=== PATIENT | female | born 1965 | race Caucasian/White ===

== ENCOUNTER 2021-03-02 10:37 | Inpatient (IN) | payer OTHER, SELFPAY ==
[2021-03-02] VITALS (8 sets, daily range): BP systolic 117–138; BP diastolic 46–82; PULSE 73–94; RESP 13–20; TEMP 36.7–36.9; O2SAT 95–99; BMI 32.3
--- NOTE | ~2021-03-02 | XR_ITS ---
EXAMINATION: XR CHEST CLINICAL INFORMATION: Generalized weakness. COMPARISON: None TECHNIQUE: Frontal view of the chest was obtained. FINDINGS: Normal appearance of the cardiomediastinal structures. No effusions or pneumothoraces. Normal pattern of pulmonary vasculature. No focal pulmonary consolidation. XR/XR chest 1V IMPRESSION: *No acute cardiopulmonary abnormalities.
--- NOTE | ~2021-03-02 | CT_ITS ---
EXAMINATION: CT ABDOMEN AND PELVIS WITH CONTRAST CLINICAL INFORMATION: Right upper quadrant and right lower quadrant pain with nausea and diarrhea. COMPARISON: None TECHNIQUE: Multidetector volumetric images were obtained from the superior aspect of the liver through the pubic symphysis following administration 85 mL of Omnipaque 350 intravenous contrast. Sagittal and coronal reformatted images were obtained on the technologist's workstation. Oral contrast: No This CT examination was performed using dose optimization techniques as appropriate, variously including the following: *Automated exposure control *Adjustment of mA and/or kV according to patient size (this includes techniques or standardized protocols for targeted exams where dose is matched to indication/reason for exam; i.e. extremities or head) *Use of iterative reconstruction technique DLP: 722 mGy-cm FINDINGS: LUNG BASES: The visualized lung bases are unremarkable. No pleural or pericardial effusion. Heart normal size. There are mitral annular and aortic valve calcifications seen. There are also noted to be esophageal varices present. LIVER, GALLBLADDER, AND BILIARY TREE: The liver has a somewhat nodular peripheral margin with a small amount of perihepatic fluid without subcapsular fluid. The appearance is consistent with some degree of cirrhosis. The umbilical vein does not appear to be recannulated. No focal mass or intrahepatic bile duct dilatation is seen. The gallbladder is distended. There is cholelithiasis present. The gallbladder wall may be thickened and I cannot tell if there may be some fluid within the wall however no significant pericholecystic fluid or inflammatory changes appreciated on this study. Ultrasound be of help in further evaluation for possible acute cholecystitis. PANCREAS: Unremarkable. SPLEEN: Unremarkable. ADRENAL GLANDS: Unremarkable. KIDNEYS AND URETERS: The kidneys are normal in size, shape, and attenuation. No hydronephrosis, hydroureter, or calculi seen. No perinephric stranding. Of the right side of the pelvis some calculi are present directly adjacent to the distal right ureter however no proximal dilatation is present and these most likely represent vascular calcifications. BLADDER: Unremarkable. GASTROINTESTINAL TRACT: No dilated loops of large or small bowel are evident. No free air or significant free fluid is seen. There are some prominent loops of fluid-filled small bowel to the level of the ileocecal valve. I do not definitely see evidence of an intussusception. The appendix seems to wrap around bowel with calcification near its base likely represent appendicolith however the appendix is not enlarged and there is no periappendiceal inflammatory change. There is some mild sigmoid diverticulosis present without definite evidence of acute diverticulitis. No pericolonic inflammatory changes appreciated. ABDOMINAL WALL: No significant hernia is appreciated. LYMPH NODES: No lymphadenopathy appreciated. VASCULAR: There are prominent portal venous system varices present including esophageal varices and development of a spontaneous left splenorenal shunt. The portal vein is patent. The splenic vein is patent. No abdominal aortic aneurysm. PELVIC VISCERA: Unremarkable. OSSEOUS STRUCTURES: There is superior endplate compression fractures seen involving L1 and L3 with the L1 fracture having approximately 50% loss of height. There is severe narrowing of the L5-S1 disc space. There are some old healed left rib fractures present. There is some dystrophic bone seen dorsal to the left iliac bone and sacrum. CT/CT abdomen pelvis w con IMPRESSION: Nodular appearance to the liver with prominent portal venous system varices including esophageal varices and a spontaneous left splenorenal shunt. Small amount of free fluid around the liver. Distended gallbladder containing calculi but without definite evidence of acute cholecystitis. If there are symptoms of acute cholecystitis then ultrasound would be of help in better evaluation. No evidence of obstructive uropathy. Question appendicolith but without definite evidence of acute appendicitis. Some fluid-filled distended loops of small bowel to the level of the ileocecal valve which may be related to small bowel ileus without significant dilatation of bowel. Fleischner guidelines were followed.
--- NOTE | 2021-03-02 11:10 | ECG_ITS ---
Test Reason : WEAKNESS Blood Pressure : / mmHG Vent. Rate : 085 BPM Atrial Rate : 085 BPM P-R Int : 140 ms QRS Dur : 080 ms QT Int : 420 ms P-R-T Axes : 030 010 024 degrees QTc Int : 499 ms Normal sinus rhythm Cannot rule out Anterior infarct , age undetermined - could be related to body habitus and lead placement Abnormal ECG No previous ECGs available Referred By: Karen Elliott Electronically Signed By:KIRILL PUTNAM
--- NOTE | 2021-03-02 11:23 | ED.WEAKNESS ---
HPI - Weakness General Chief complaint: Weakness Stated complaint: nausea/diarrhea Time Seen by Provider: 03/02/21 10:49 Source: patient Mode of arrival: EMS History of Present Illness HPI Narrative: 56-year-old female with past medical history ETOH abuse presenting to the ED reporting she recently went on ETOH dhillon drinking about a pint of hard liquor daily, last drink last night, reported generalized fatigue/weakness with difficulty ambulating, RUQ abdominal pain, nausea, and diarrhea. Denies illicit drug use, vomiting, fever, chills, CP/SOB, dysuria. Also reports pruritic rash/scab to hand. Patient reports [facility] MD Complaint: generalized weakness Related Data Home Medications Medication Instructions Recorded Confirmed acetaminophen 325 mg tablet 325 mg PO BID PRN 03/02/21 03/02/21 escitalopram oxalate 10 mg tablet 1 tab PO DAILY 03/02/21 03/02/21 ferrous gluconate 324 mg (38 mg 324 mg PO BEDTIME 03/02/21 03/02/21 iron) tablet folic acid 1 mg tablet 1 tab PO DAILY 03/02/21 03/02/21 furosemide 20 mg tablet 1 tab PO DAILY 03/02/21 03/02/21 gabapentin 100 mg capsule 200 mg PO BID 03/02/21 03/02/21 hydroxyzine HCl 25 mg tablet 1 tab PO QID PRN 03/02/21 03/02/21 nadolol 20 mg tablet 1 tab PO DAILY 03/02/21 03/02/21 naltrexone 50 mg tablet 1 tab PO DAILY 03/02/21 03/02/21 pantoprazole 40 mg tablet,delayed 1 tab PO BID 03/02/21 03/02/21 release spironolactone 100 mg tablet 1 tab PO DAILY 03/02/21 03/02/21 Allergies Allergy/AdvReac Type Severity Reaction Status Date / Time levofloxacin [From Levaquin] Allergy Anaphylaxis Verified 03/02/21 10:48 Penicillins Allergy Anaphylaxis Verified 03/02/21 10:48 Sulfa (Sulfonamide Allergy Anaphylaxis Verified 03/02/21 10:48 Antibiotics) Review of Systems Review of Systems: Constitutional:No Fever, No Chills, + Fatigue, No Malaise ENT/Mouth: No Ear Pain, No Nasal Congestion,No sore throat, No Rhinorrhea, No Swallowing Difficulty Eyes: No Eye Pain, No Swelling, No Redness Cardiovascular: No Chest Pain, No SOB, No Edema, No Palpitations Respiratory: No Cough, No Dyspnea Gastrointestinal: + Nausea, No Vomiting, + Diarrhea, No Constipation, + Abdominal pain Genitourinary: No Dysuria, No Urinary Frequency, No Hematuria, No Flank Pain, No Urinary Flow Changes, No Hesitancy Musculoskeletal: No joint pain, No Myalgias, No Joint Swelling Skin: No Skin Lesions, +rash Neuro: + Weakness, No Dizziness, No Headache Psych: + Anxiety/Panic, + Social Issues Yes all other systems are reviewed and are negative [facility] Past Medical History Attestation statement: The following information was validated with the patient. Medical History Alcoholic cirrhosis of liver Family History Family History Mother Pancreatic cancer Social History Social History Alcohol intake: current Patient Tobacco Use Status: Former Tobacco user Substance Use Type: Marijuana Advance Directives: No Advance Directives Information Provided: No Patient : No Physical Exam Vital Signs: Vital Signs: Last Vital Signs Temp 98.5 F 03/02/21 10:50 Pulse 79 03/02/21 15:52 Resp 17 03/02/21 15:52 BP 131/67 03/02/21 15:52 Pulse Ox 95 03/02/21 15:52 BMI result Body Mass Index 32.3 Const: General: cooperative and no acute distress Orientation/consciousness: patient oriented x3 Limitations: no limitations HENMT: Other: Healing scabs noted to face Head: Yes normal to inspection and Yes atraumatic Ears: hearing grossly normal bilaterally General nose exam: Normal external nose present Face and sinus: Yes normal facial exam Throat: Yes posterior oropharynx normal Eyes: General: appearance normal, both eyes and all related structures Pupils: Equal, round and reactive pupils present EOM: EOMs intact bilaterally Neck: Neck: Yes normal visual inspection and Yes no meningeal signs Resp: Effort & Inspection: normal respiratory effort Auscultation: clear to auscultation bilaterally, no rales, no rhonchi and no wheezes Cardio: Rate: regular rate Heart sounds: S1 normal heart sound present and S2 normal heart sound present GI: Inspection: Yes normal to inspection Palpation (GI): Soft to palpation, Tenderness to palpation present (GI) in the epigastrum, in the RLQ and in the RUQ, no guarding and not rigid Skin: Other: Scabbing noted between finger webbing of 3rd and 4th digits on right hand Rashes: no rashes Neuro: General: patient oriented x3, tone normal, moves all extremities, no meningeal signs, no focal motor deficits and CN's II-XI intact bilaterally Cranial nerves: Yes Equal, round and reactive pupils present Cognition (Neuro): normal cognition Extrem: General: Yes normal to inspection and Yes no pedal edema Course Course Course Narrative: -1252--no leukocytosis. Thrombocytopenia platelets of 63 likely from ETOH abuse, magnesium low 1.4 IV repletion ordered. -bilirubin/AST elevated suspected from ETOH. Lipase 255 XR chest 1V IMPRESSION: *No acute cardiopulmonary abnormalities. 1530--CT abdomen pelvis w con IMPRESSION: Nodular appearance to the liver with prominent portal venous system varices including esophageal varices and a spontaneous left splenorenal shunt. ? Small amount of free fluid around the liver. ? Distended gallbladder containing calculi but without definite evidence of acute cholecystitis. If there are symptoms of acute cholecystitis then ultrasound would be of help in better evaluation. ? No evidence of obstructive uropathy. ? Question appendicolith but without definite evidence of acute appendicitis. Some fluid-filled distended loops of small bowel to the level of the ileocecal valve which may be related to small bowel ileus without significant dilatation of bowel.? ?>> case discussed with surgery Dr. Fink, patient to be admitted to Medicine with surgical consult. Will initiate phenobarb protocol MDM - Weakness MDM Narrative Medical decision making narrative: 56-year-old female with past medical history ETOH abuse presenting to the ED reporting she recently went on ETOH dhillon drinking about a pint of hard liquor daily, last drink last night, reported generalized fatigue/weakness with difficulty ambulating, RUQ abdominal pain, nausea, and diarrhea. On exam vital signs stable, NAD, physical exam as above. Concern for ETOH abuse/withdrawal vs metabolic/infectious etiology/deconditioning/dehydration vs cholecystitis/lithiasis vs pancreatitis vs appendicitis. Patient ambulating safely in the ED without difficulty. Rash on hand concerning for scabies Plan: EKG, labs, UA, CXR, CT abdomen/pelvis, COVID-19 testing, IVF, re-evaluate Medical Records Attestation: I reviewed the patient's medical records. Lab Data Attestation: I reviewed the patient's lab results. Result diagrams: 03/02/21 12:12 03/02/21 12:12 Labs: Lab Results 03/02/21 03/02/21 03/02/21 Range/Units 12:12 12:12 12:12 WBC 4.8 (4.8-10.8) X10*3/uL RBC 4.02 L (4.20-5.50) X10*6/uL Hgb 10.7 L (12.0-16.0) g/dl Hct 33.1 L (37.0-47.0) % MCV 82.3 (80.0-98.0) fL MCH 26.6 L (27.0-33.0) pg MCHC 32.3 (31.0-35.0) g/dl RDW 16.2 H (11.0-16.0) % Plt Count 63 L (160-400) X10*3/uL MPV 10.0 (9.4-12.3) fL Immature Gran % (Auto) 0.2 (0.0-0.4) % Neut % (Auto) 67.2 (45-73) % Lymph % (Auto) 17.5 L (20-40) % Ross % (Auto) 10.3 (2-11) % Eos % (Auto) 4.0 (0-4) % Baso % (Auto) 0.8 (0-2) % Lymph # (Auto) 0.8 L (1.2-4.9) X10*3/uL Ross # (Auto) 0.5 (0.1-1.2) X10*3/uL Eos # (Auto) 0.2 (0.0-0.4) X10*3/uL Baso # (Auto) 0.0 (0.0-0.2) X10*3/uL Abs Immat Gran (auto) 0.01 (0.00-0.03) X10*3/uL Absolute Neuts (auto) 3.2 (2.0-8.3) x10*3/uL Absolute Nucleated RBC 0.000 (0.0-0.012) X10*3/uL Nucleated RBC % (auto) 0.0 (0.0-0.2) /100WBC Sodium 136 (135-145) mmol/L Potassium 3.7 (3.3-5.1) mmol/L Chloride 101 (96-108) mmol/L Carbon Dioxide 25 (22-29) mmol/L Anion Gap 14 (12-20) BUN 6 L (9-16) mg/dL Creatinine 0.66 (0.5-1.4) mg/dL Estim Creat Clear Calc 80.6 Estimated GFR > 60 Random Glucose 86 (60-115) mg/dL Calcium 8.2 L (8.4-10.2) mg/dL Magnesium 1.4 L* (1.6-2.6) mg/dL Total Bilirubin 1.8 H (0.0-1.0) mg/dL Direct Bilirubin 1.0 H (0.0-0.5) mg/dL AST 44 H (5-31) U/L ALT 22 (0-31) U/L Alkaline Phosphatase 99 (39-117) U/L Troponin I High Sens 8.3 (<3.5-17.0) ng/L Total Protein 6.5 (6.5-8.0) g/dL Albumin 3.5 (3.5-5.0) g/dL Lipase 255 H (8-78) U/L Ethyl Alcohol mg/dL COVID-19 (SIMONE) (Negative) COVID-19 Clin Com 03/02/21 03/02/21 Range/Units 12:12 12:12 WBC (4.8-10.8) X10*3/uL RBC (4.20-5.50) X10*6/uL Hgb (12.0-16.0) g/dl Hct (37.0-47.0) % MCV (80.0-98.0) fL MCH (27.0-33.0) pg MCHC (31.0-35.0) g/dl RDW (11.0-16.0) % Plt Count (160-400) X10*3/uL MPV (9.4-12.3) fL Immature Gran % (Auto) (0.0-0.4) % Neut % (Auto) (45-73) % Lymph % (Auto) (20-40) % Ross % (Auto) (2-11) % Eos % (Auto) (0-4) % Baso % (Auto) (0-2) % Lymph # (Auto) (1.2-4.9) X10*3/uL Ross # (Auto) (0.1-1.2) X10*3/uL Eos # (Auto) (0.0-0.4) X10*3/uL Baso # (Auto) (0.0-0.2) X10*3/uL Abs Immat Gran (auto) (0.00-0.03) X10*3/uL Absolute Neuts (auto) (2.0-8.3) x10*3/uL Absolute Nucleated RBC (0.0-0.012) X10*3/uL Nucleated RBC % (auto) (0.0-0.2) /100WBC Sodium (135-145) mmol/L Potassium (3.3-5.1) mmol/L Chloride (96-108) mmol/L Carbon Dioxide (22-29) mmol/L Anion Gap (12-20) BUN (9-16) mg/dL Creatinine (0.5-1.4) mg/dL Estim Creat Clear Calc Estimated GFR Random Glucose (60-115) mg/dL Calcium (8.4-10.2) mg/dL Magnesium (1.6-2.6) mg/dL Total Bilirubin (0.0-1.0) mg/dL Direct Bilirubin (0.0-0.5) mg/dL AST (5-31) U/L ALT (0-31) U/L Alkaline Phosphatase (39-117) U/L Troponin I High Sens (<3.5-17.0) ng/L Total Protein (6.5-8.0) g/dL Albumin (3.5-5.0) g/dL Lipase (8-78) U/L Ethyl Alcohol < 10 mg/dL COVID-19 (SIMONE) Negative (Negative) COVID-19 Clin Com See Note ECG Data Attestation: I personally reviewed and interpreted this ECG as follows: ECG interpretation date: 03/02/21 ECG interpretation time: 11:57 Interpretation: EKG normal sinus rhythm at a rate of 85. QTC 499. Poor R-wave progression. Q-wave in lead 3 Critical Care Time Critical Care Time Critical Care Time: Yes Total Critical Care Time: 35 Attestation: I have personally provided critical care time exclusive of time spent on separately billable procedures. Time includes review of lab data, radiology results, discussion with consultants, and monitoring for potential decompensation. Intervention performed as documented. Discharge Plan Discharge Clinical Impression: Acute pancreatitis, Ileus, Cholelithiasis Patient Disposition: Admitted As Inpatient
[2021-03-02 12:18] LABS: Basophils Percent Auto 0.8 % (0-2); Eosinophils Absolute Auto 0.2 X10*3/uL (0.0-0.4); Hematocrit 33.1 % (37.0-47.0); Hemoglobin 10.7 g/dl (12.0-16.0); Imm Gran Abs Auto 0.01 X10*3/uL (0.00-0.03); Imm Gran Pct Auto 0.2 % (0.0-0.4); Lymphocytes Absolute Auto 0.8 X10*3/uL (1.2-4.9); Lymphocytes Percent Auto 17.5 % (20-40); MANUAL DIFF FLAG NO; Mean Corpuscular HGB Conc 32.3 g/dl (31.0-35.0); Mean Corpuscular Hemoglobin 26.6 pg (27.0-33.0); Mean Corpuscular Volume 82.3 fL (80.0-98.0); Monocytes Absolute Auto 0.5 X10*3/uL (0.1-1.2); Monocytes Percent Auto 10.3 % (2-11); Neutrophils Absolute Auto 3.2 x10*3/uL (2.0-8.3); Neutrophils Percent Auto 67.2 % (45-73); Red Blood Count 4.02 X10*6/uL (4.20-5.50); Red Cell Distribution Width 16.2 % (11.0-16.0); White Blood Count 4.8 X10*3/uL (4.8-10.8)
[2021-03-02] MEDS: ondansetron HCL 4 MG/2 ML VIAL IVPUSH (12:18)
[2021-03-02] MEDS: Famotidine/PF 20 MG/2 ML VIAL IVPUSH (12:18)
[2021-03-02] MEDS: 0.9 % Sodium Chloride 1,000 ML 999 ML IVCONT ×2 (12:18→13:28)
[2021-03-02 12:35] LABS: Platelet Count 63 X10*3/uL (160-400)
[2021-03-02 12:36] LABS: COVID-19 Test Negative (Negative); IDNOW Serial# 55D5AD1C
[2021-03-02 12:39] LABS: Ethanol < 10 mg/dL
[2021-03-02 12:41] LABS: Troponin-I High Sensitivity 8.3 ng/L (<3.5-17.0)
[2021-03-02 12:52] LABS: Alanine Aminotransferase 22 U/L (0-31); Albumin Level 3.5 g/dL (3.5-5.0); Alkaline Phosphatase 99 U/L (39-117); Anion Gap 14 (12-20); Aspartate Amino Transferase 44 U/L (5-31); Bilirubin Total 1.8 mg/dL (0.0-1.0); Blood Urea Nitrogen 6 mg/dL (9-16); Calcium 8.2 mg/dL (8.4-10.2); Carbon Dioxide 25 mmol/L (22-29); Chloride 101 mmol/L (96-108); Creatinine Clr Calc Pharmacy 80.6; Estimated Glomerular Filt Rate > 60; Glucose Random 86 mg/dL (60-115); Lipase 255 U/L (8-78); Magnesium 1.4 mg/dL (1.6-2.6); Potassium 3.7 mmol/L (3.3-5.1); Sodium 136 mmol/L (135-145); Total Protein 6.5 g/dL (6.5-8.0)
[2021-03-02] MEDS: Magnesium Sulfate/H2O 2 GM/50 ML PIGGYBACK IV (13:28)
[2021-03-02] MEDS: iohexoL 350 MG/ML 100 ML INFUS..BTL IV (13:31)
--- NOTE | 2021-03-02 15:51 | PHA.MEDREC ---
Pharmacy Consult ? Medication Reconciliation Pharmacy has completed the medication reconciliation. Patient is not from [facility]. She is able to confirm meds but has not been taking them since the start of her drinking binder
[2021-03-02] MEDS: Morphine Sulfate 2 MG/ML CARTRIDGE IVPUSH (15:53)
[2021-03-02] MEDS: Magnesium Hydrox/Alum Hydrox 30 ML ORAL.SUSP PO (15:53)
[2021-03-02] MEDS: Ketorolac Tromethamine 30 MG/ML VIAL 15 MG IVPUSH (15:53)
--- NOTE | 2021-03-02 16:32 | P.HPHOSP_ITS ---
History of Present Illness Date of Service: 03/02/21 Chief Complaint: ruq abd pain 56F ETOH dependent with cirrhosis, homeless, presented with complaint of about 1 week fatigue and RUQ pain. pain is sharp, radiates to middle of abdomen, mild to moderate in intensity, not associated with food, worse with palpation, assoicated with diarrhea, nausea, no vomitting. symptoms worsened last couple days so she came to ED. in ED, CT showed cirrhotic liver, distended gallbladder with calculi but no evidence of acute cholecytitis. some fluid fulled distended loops of small bowel. labs significant for mag 1.4, tbili 1.8 (was 0.12 jan 2021). Review of Systems Review of Systems: Constitutional: Denies fever, denies Chills Eyes: denies blurry vision ENT: denies sore throat CVS: denies chest pain Respiratory: Denies dyspnea GI: abdominal pain : denies dysuria MSK: denies neck pain Skin: denies rash Neuro: denies specific motor weakness Psych: denies suicidal ideation Endocrine: denies heat/cold intolerance Hematologic: denies easy bleeding Allergy: denies hives [facility] Medical History Alcoholic cirrhosis of liver Family History Mother Pancreatic cancer Social History Alcohol intake: current Patient Tobacco Use Status: Former Tobacco user Substance Use Type: Marijuana Advance Directives: No Advance Directives Information Provided: No Patient : No Meds Allergies Allergy/AdvReac Type Severity Reaction Status Date / Time levofloxacin [From Levaquin] Allergy Anaphylaxis Verified 03/02/21 10:48 Penicillins Allergy Anaphylaxis Verified 03/02/21 10:48 Sulfa (Sulfonamide Allergy Anaphylaxis Verified 03/02/21 10:48 Antibiotics) Active Medications: Current Medications Escitalopram Oxalate (Escitalopram Oxalate 10 Mg Tablet) 10 mg PO DAILY [facility] Ferrous Sulfate (Ferrous Sulfate 324 Mg Tablet.Dr) 324 mg PO BEDTIME [facility]DRA Folic Acid (Folic Acid 1 Mg Tablet) 1 mg PO DAILY [facility] Gabapentin (Gabapentin 100 Mg Capsule) 200 mg PO BID [facility]DRA Hydroxyzine HCl (Hydroxyzine Hcl 25 Mg Tablet) 25 mg PO QID PRN PRN Reason: Anxiety Lactated Ringer's (Lr) 1,000 mls @ 100 mls/hr IVCONT .Q10H [facility] Medication (No Benzodiazepines) 1 each MISCELLANE DAILY [facility] Morphine Sulfate (Morphine Sulfate 2 Mg/Ml Cartridge) 2 mg IVPUSH Q4H PRN; Protocol PRN Reason: moderate pain Nadolol (Nadolol 20 Mg Tablet) 20 mg PO DAILY [facility]; Protocol Naltrexone HCl (Naltrexone Hcl 50 Mg Tablet) 50 mg PO DAILY [facility] Omeprazole (Omeprazole 20 Mg Capsule.Dr) 20 mg PO BID@0630,1630 [facility] Pharmacy Consult (Consult Rx Perform Med Rec) 1 each MISCELLANE ONCE PRN PRN Reason: Consult order Phenobarbital (Phenobarbital 30 Mg Tablet) 30 mg PO BID [facility] Stop: 03/04/21 21:01 Phenobarbital (Phenobarbital 15 Mg Tablet) 15 mg PO BID [facility] Stop: 03/06/21 21:01 Phenobarbital (Phenobarbital 15 Mg Tablet) 15 mg PO DAILY [facility] Stop: 03/08/21 09:01 Phenobarbital Sodium (Phenobarbital Sodium 130 Mg/Ml Vial) 135 mg IM Q3H [facility] Stop: 03/02/21 19:01 Sodium Chloride (0.9 % Sodium Chloride Flush 3 Ml Syringe) 3 ml IVFLUSH QSHIFT [facility] Spironolactone (Spironolactone 25 Mg Tablet) 100 mg PO DAILY [facility]; Protocol Home Medications Medication Instructions Recorded Confirmed Last Taken Type acetaminophen 325 mg tablet 325 mg PO BID PRN 03/02/21 03/02/21 Unknown History escitalopram oxalate 10 mg tablet 1 tab PO DAILY 03/02/21 03/02/21 Unknown History ferrous gluconate 324 mg (38 mg 324 mg PO BEDTIME 03/02/21 03/02/21 Unknown History iron) tablet folic acid 1 mg tablet 1 tab PO DAILY 03/02/21 03/02/21 Unknown History furosemide 20 mg tablet 1 tab PO DAILY 03/02/21 03/02/21 Unknown History gabapentin 100 mg capsule 200 mg PO BID 03/02/21 03/02/21 Unknown History hydroxyzine HCl 25 mg tablet 1 tab PO QID PRN 03/02/21 03/02/21 Unknown History nadolol 20 mg tablet 1 tab PO DAILY 03/02/21 03/02/21 Unknown History naltrexone 50 mg tablet 1 tab PO DAILY 03/02/21 03/02/21 Unknown History pantoprazole 40 mg tablet,delayed 1 tab PO BID 03/02/21 03/02/21 Unknown History release spironolactone 100 mg tablet 1 tab PO DAILY 03/02/21 03/02/21 Unknown History Physical Exam 2 Vital Signs and Narrative: Vital Signs: Last Vital Signs Temp 98.5 F 03/02/21 10:50 Pulse 79 03/02/21 15:52 Resp 17 03/02/21 15:52 BP 131/67 03/02/21 15:52 Pulse Ox 95 03/02/21 15:52 BMI result Body Mass Index 32.3 General: no acute distress HEENT: atraumatic Neck: normal to visual inspection CVS: S1, S2, RRR Resp: CTA bilateral Chest: non tender GI: soft, ruq tender, non distended : no CVA tenderness Skin: no rashes Extremities: no edema Neuro: Oriented X3, grossly intact Psych: cooperative Results Labs CBC and Chem 7: 03/02/21 12:12 03/02/21 12:12 Labs: Laboratory Results - last 24 hr 03/02/21 03/02/21 03/02/21 12:12 12:12 12:12 MCV 82.3 MCH 26.6 L MCHC 32.3 RDW 16.2 H Plt Count 63 L MPV 10.0 Immature Gran % (Auto) 0.2 Neut % (Auto) 67.2 Lymph % (Auto) 17.5 L [place] % (Auto) 10.3 Eos % (Auto) 4.0 Baso % (Auto) 0.8 Lymph # (Auto) 0.8 L [place] # (Auto) 0.5 Eos # (Auto) 0.2 Baso # (Auto) 0.0 Abs Immat Gran (auto) 0.01 Absolute Neuts (auto) 3.2 Absolute Nucleated RBC 0.000 Nucleated RBC % (auto) 0.0 Anion Gap 14 Estim Creat Clear Calc 80.6 Estimated GFR > 60 Random Glucose 86 Calcium 8.2 L Magnesium 1.4 L* Total Bilirubin 1.8 H Direct Bilirubin 1.0 H AST 44 H ALT 22 Alkaline Phosphatase 99 Troponin I High Sens 8.3 Total Protein 6.5 Albumin 3.5 Lipase 255 H Ethyl Alcohol COVID-19 (SIMONE) COVID-19 Clin Com 03/02/21 03/02/21 12:12 12:12 MCV MCH MCHC RDW Plt Count MPV Immature Gran % (Auto) Neut % (Auto) Lymph % (Auto) [place] % (Auto) Eos % (Auto) Baso % (Auto) Lymph # (Auto) [place] # (Auto) Eos # (Auto) Baso # (Auto) Abs Immat Gran (auto) Absolute Neuts (auto) Absolute Nucleated RBC Nucleated RBC % (auto) Anion Gap Estim Creat Clear Calc Estimated GFR Random Glucose Calcium Magnesium Total Bilirubin Direct Bilirubin AST ALT Alkaline Phosphatase Troponin I High Sens Total Protein Albumin Lipase Ethyl Alcohol < 10 COVID-19 (SIMONE) Negative COVID-19 Clin Com See Note Imaging Radiologist's Impressions: Impressions Chest X-Ray 03/02/21 11:50 IMPRESSION: *No acute cardiopulmonary abnormalities. Abdomen/Pelvis CT 03/02/21 13:29 IMPRESSION: Nodular appearance to the liver with prominent portal venous system varices including esophageal varices and a spontaneous left splenorenal shunt. Small amount of free fluid around the liver. Distended gallbladder containing calculi but without definite evidence of acute cholecystitis. If there are symptoms of acute cholecystitis then ultrasound would be of help in better evaluation. No evidence of obstructive uropathy. Question appendicolith but without definite evidence of acute appendicitis. Some fluid-filled distended loops of small bowel to the level of the ileocecal valve which may be related to small bowel ileus without significant dilatation of bowel. Fleischner guidelines were followed. Assessment and Plan (1) Acute alcoholic hepatitis: Status: Acute (2) Cholelithiasis: Status: Acute (3) Alcoholic cirrhosis of liver: Status: Acute 56F presented with abdominal pain acute alcoholic hepatatis in setting of chronic alcoholic cirrhosis with varices. high protein diet, pain control, monitor lfts continue aldactone, PPI, hold lasix cholelithiasis with distended GB surgery eval hypomagnesemia replace and monitor alcohol dependence with withdrawal phenobarb, ciwa thrombocytopenia due to cirrhosis depression lexapro dvt prophylaxis - mechacnical due to thrombocytopenia full code Quality Stroke Does the patient have a stroke diagnosis?: No VTE Prior VTE?: No VTE Risk Level:: Medical - moderate - high VTE Device Contraindication: N/A - Device Ordered VTE Drug Contraindication: Treatment Not Tolerated
[2021-03-02] MEDS: Lactated Ringers 1,000 ML 100 ML IVCONT (16:33)
[2021-03-02] MEDS: PHENobarbitaL sodium 130 MG/ML VIAL 180 MG IM (17:27)
[2021-03-02] MEDS: Omeprazole 20 MG CAPSULE.DR PO (17:27)
[2021-03-02 17:49] LABS: Lactic Acid 0.9 mmol/L (0.5-2.0)
[2021-03-02] MEDS: PHENobarbitaL sodium 130 MG/ML VIAL 135 MG IM ×2 (19:44→22:34)
[2021-03-02] MEDS: Gabapentin 100 MG CAPSULE 200 MG PO (22:34)
[2021-03-02] MEDS: Ferrous Sulfate 324 MG TABLET.DR PO (22:34)
--- NOTE | 2021-03-02 22:39 | PC.NURSE ---
pt oriented x3 but delusional, CIWA complete and was a 7. dr. king notified as pt making bizarrre statements such as can I go on the porch that is right there? and pointing into the hallway, also wondering about the [employer] [place] that all the staff are at. she reports having AH of squigley lines across her eyes at times.
[2021-03-03] VITALS (10 sets, daily range): BP systolic 112–134; BP diastolic 46–87; PULSE 66–91; RESP 13–20; TEMP 36.4–37; O2SAT 93–97
[2021-03-03] MEDS: Lactated Ringers 1,000 ML 100 ML IVCONT ×3 (02:30→20:07)
[2021-03-03] MEDS: hydrOXYzine HCL 25 MG TABLET PO ×2 (05:19→11:46)
[2021-03-03] MEDS: Omeprazole 20 MG CAPSULE.DR PO ×2 (05:19→17:01)
[2021-03-03 08:03] LABS: PLT CLUMP 1
[2021-03-03 08:05] LABS: Hematocrit 29.4 % (37.0-47.0); Hemoglobin 9.4 g/dl (12.0-16.0); Mean Corpuscular Hemoglobin 26.7 pg (27.0-33.0); Mean Corpuscular Volume 83.5 fL (80.0-98.0); Mean Platelet Volume 10.2 fL (9.4-12.3); Red Blood Count 3.52 X10*6/uL (4.20-5.50); Red Cell Distribution Width 16.2 % (11.0-16.0)
[2021-03-03 08:06] LABS: Platelet Count 45 X10*3/uL (160-400); White Blood Count 2.8 X10*3/uL (4.8-10.8)
[2021-03-03 08:11] LABS: INTERNATIONAL NORM RATIO 1.3 (0.9-1.1); Prothrombin Time 15.2 SEC (9.9-13.0)
[2021-03-03 08:28] LABS: Alanine Aminotransferase 23 U/L (0-31); Albumin Level 2.9 g/dL (3.5-5.0); Alkaline Phosphatase 78 U/L (39-117); Anion Gap 13 (12-20); Aspartate Amino Transferase 44 U/L (5-31); Bilirubin Direct 0.6 mg/dL (0.0-0.5); Bilirubin Total 1.2 mg/dL (0.0-1.0); Blood Urea Nitrogen 5 mg/dL (9-16); Calcium 7.4 mg/dL (8.4-10.2); Carbon Dioxide 25 mmol/L (22-29); Chloride 103 mmol/L (96-108); Creatinine Clr Calc Pharmacy 84.4; Estimated Glomerular Filt Rate > 60; Glucose Fasting 78 mg/dL (60-99); Magnesium 1.5 mg/dL (1.6-2.6); Potassium 3.5 mmol/L (3.3-5.1); Sodium 137 mmol/L (135-145); Total Protein 5.3 g/dL (6.5-8.0)
[2021-03-03] MEDS: PHENobarbitaL 30 MG TABLET PO ×2 (09:20→20:07)
[2021-03-03] MEDS: Escitalopram Oxalate 10 MG TABLET PO (09:20)
[2021-03-03] MEDS: Folic Acid 1 MG TABLET PO (09:20)
[2021-03-03] MEDS: Naltrexone HCl 50 MG TABLET PO (09:21)
[2021-03-03] MEDS: nadoloL 20 MG TABLET PO (09:21)
[2021-03-03] MEDS: Spironolactone 25 MG TABLET 100 MG PO (09:21)
[2021-03-03] MEDS: Gabapentin 100 MG CAPSULE 200 MG PO ×2 (09:21→20:07)
--- NOTE | 2021-03-03 09:31 | HO.PM.IMPN ---
Subjective Subjective Date of Service: 03/03/21 Interval History: cc: abd pain interval history: unchanged Cardiovascular Cardiovascular: Reports no additional cardiovascular complaints Respiratory Respiratory: Reports no additional respiratory complaints Physical Exam Vital Signs: Vital Signs: Last Vital Signs Temp 97.9 F 03/03/21 06:39 Pulse 71 03/03/21 09:21 Resp 16 03/03/21 06:39 BP 122/48 L 03/03/21 09:21 Pulse Ox 95 03/03/21 06:39 BMI result Body Mass Index 32.3 General: AO X 3, no acute distress Resp: CTA bilateral, no accessory muscles used CVS: S1,S2,RRR GI: soft, ruq tender, non distended Neuro: motor grossly intact, alert Psych: appropriate affect, appropriate insight Objective Data Active Medications Escitalopram Oxalate (Escitalopram Oxalate 10 Mg Tablet) 10 mg PO DAILY [facility] Last Admin: 03/03/21 09:20 Dose: 10 mg Documented by: SARI Ferrous Sulfate (Ferrous Sulfate 324 Mg Tablet.) 324 mg PO BEDTIME [facility] Last Admin: 03/02/21 22:34 Dose: 324 mg Documented by: PRO Folic Acid (Folic Acid 1 Mg Tablet) 1 mg PO DAILY [facility] Last Admin: 03/03/21 09:20 Dose: 1 mg Documented by: SARI Gabapentin (Gabapentin 100 Mg Capsule) 200 mg PO BID [facility] Last Admin: 03/03/21 09:21 Dose: 200 mg Documented by: SARI Hydroxyzine HCl (Hydroxyzine Hcl 25 Mg Tablet) 25 mg PO QID PRN PRN Reason: Anxiety Last Admin: 03/03/21 05:19 Dose: 25 mg Documented by: DIMITRIOS Lactated Ringer's (Lr) 1,000 mls @ 100 mls/hr IVCONT .Q10H [facility] Last Admin: 03/03/21 02:30 Dose: 100 mls/hr Documented by: CAMMAK Medication (No Benzodiazepines) 1 each MISCELLANE DAILY [facility] Morphine Sulfate (Morphine Sulfate 2 Mg/Ml Cartridge) 2 mg IVPUSH Q4H PRN; Protocol PRN Reason: moderate pain Nadolol (Nadolol 20 Mg Tablet) 20 mg PO DAILY [facility]; Protocol Last Admin: 03/03/21 09:21 Dose: 20 mg Documented by: SARI Naltrexone HCl (Naltrexone Hcl 50 Mg Tablet) 50 mg PO DAILY [facility] Last Admin: 03/03/21 09:21 Dose: 50 mg Documented by: SARI Omeprazole (Omeprazole 20 Mg Capsule.) 20 mg PO BID@0630,1630 [facility] Last Admin: 03/03/21 05:19 Dose: 20 mg Documented by: DIMITRIOS Pharmacy Consult (Consult Rx Perform Med Rec) 1 each MISCELLANE ONCE PRN PRN Reason: Consult order Phenobarbital (Phenobarbital 30 Mg Tablet) 30 mg PO BID [facility] Stop: 03/04/21 21:01 Last Admin: 03/03/21 09:20 Dose: 30 mg Documented by: SARI Phenobarbital (Phenobarbital 15 Mg Tablet) 15 mg PO BID [facility] Stop: 03/06/21 21:01 Phenobarbital (Phenobarbital 15 Mg Tablet) 15 mg PO DAILY [facility] Stop: 03/08/21 09:01 Sodium Chloride (0.9 % Sodium Chloride Flush 3 Ml Syringe) 3 ml IVFLUSH QSHIFT [facility] Last Admin: 03/03/21 07:28 Dose: Not Given Documented by: MATTEO Non-Admin Reason: Med Not Available Spironolactone (Spironolactone 25 Mg Tablet) 100 mg PO DAILY [facility]; Protocol Last Admin: 03/03/21 09:21 Dose: 100 mg Documented by: SARI Labs CBC & Chem 7: 03/03/21 07:11 03/03/21 07:11 Labs: Laboratory Results - last 24 hr 03/02/21 03/02/21 03/02/21 12:12 12:12 12:12 MCV 82.3 MCH 26.6 L MCHC 32.3 RDW 16.2 H Plt Count 63 L MPV 10.0 Immature Gran % (Auto) 0.2 Neut % (Auto) 67.2 Lymph % (Auto) 17.5 L Meagher % (Auto) 10.3 Eos % (Auto) 4.0 Baso % (Auto) 0.8 Lymph # (Auto) 0.8 L Meagher # (Auto) 0.5 Eos # (Auto) 0.2 Baso # (Auto) 0.0 Abs Immat Gran (auto) 0.01 Absolute Neuts (auto) 3.2 Absolute Nucleated RBC 0.000 Nucleated RBC % (auto) 0.0 PT INR Anion Gap 14 Estim Creat Clear Calc 80.6 Estimated GFR > 60 Random Glucose 86 Fasting Glucose Lactic Acid Calcium 8.2 L Magnesium 1.4 L* Total Bilirubin 1.8 H Direct Bilirubin 1.0 H AST 44 H ALT 22 Alkaline Phosphatase 99 Troponin I High Sens 8.3 Total Protein 6.5 Albumin 3.5 Lipase 255 H Ethyl Alcohol COVID-19 (SIMONE) COVID-19 Clin Com 03/02/21 03/02/21 03/02/21 12:12 12:12 17:20 MCV MCH MCHC RDW Plt Count MPV Immature Gran % (Auto) Neut % (Auto) Lymph % (Auto) Meagher % (Auto) Eos % (Auto) Baso % (Auto) Lymph # (Auto) Meagher # (Auto) Eos # (Auto) Baso # (Auto) Abs Immat Gran (auto) Absolute Neuts (auto) Absolute Nucleated RBC Nucleated RBC % (auto) PT INR Anion Gap Estim Creat Clear Calc Estimated GFR Random Glucose Fasting Glucose Lactic Acid 0.9 Calcium Magnesium Total Bilirubin Direct Bilirubin AST ALT Alkaline Phosphatase Troponin I High Sens Total Protein Albumin Lipase Ethyl Alcohol < 10 COVID-19 (SIMONE) Negative COVID-19 Clin Com See Note 03/03/21 03/03/21 03/03/21 07:11 07:11 07:11 MCV 83.5 MCH 26.7 L MCHC 32.0 RDW 16.2 H Plt Count 45 L D MPV 10.2 Immature Gran % (Auto) Neut % (Auto) Lymph % (Auto) Meagher % (Auto) Eos % (Auto) Baso % (Auto) Lymph # (Auto) Meagher # (Auto) Eos # (Auto) Baso # (Auto) Abs Immat Gran (auto) Absolute Neuts (auto) Absolute Nucleated RBC 0.000 Nucleated RBC % (auto) 0.0 PT 15.2 H INR 1.3 H Anion Gap 13 Estim Creat Clear Calc 84.4 Estimated GFR > 60 Random Glucose Fasting Glucose 78 Lactic Acid Calcium 7.4 L D Magnesium 1.5 L Total Bilirubin 1.2 H Direct Bilirubin 0.6 H AST 44 H ALT 23 Alkaline Phosphatase 78 D Troponin I High Sens Total Protein 5.3 L Albumin 2.9 L Lipase Ethyl Alcohol COVID-19 (SIMONE) COVID-19 Clin Com Assessment and Plan (1) Acute alcoholic hepatitis: Status: Acute Assessment and Plan: ?? 56F presented with abdominal pain acute alcoholic hepatatis in setting of chronic alcoholic cirrhosis with varices. high protein diet, pain control, monitor lfts continue aldactone, PPI, holding lasix still no appetite cholelithiasis with distended GB surgery eval hypomagnesemia replace and monitor alcohol dependence with withdrawal phenobarb, ciwa pancytopenia due to cirrhosis depression lexapro dvt prophylaxis - mechanical due to thrombocytopenia full code Quality Stroke Does the patient have a stroke diagnosis?: No VTE Prior VTE?: No VTE Risk Level:: Medical - moderate - high VTE Device Contraindication: N/A - Device Ordered VTE Drug Contraindication: Treatment Not Tolerated
--- NOTE | 2021-03-03 10:22 | P.CONGS_ITS ---
History of Present Illness Consult details Consult date: 03/03/21 Narrative: 56 year female with known chronic liver disease from alcohol, who came into the ER yesterday afternoon because of multiple complaints. She has had 1 week history of fatigue, weakness, body malaise, with abdominal pain. She describes her pain as mostly on the right upper quadrant and the mid abdomen. She currently says that this is better this morning. She denies any nausea or vomiting. She admitted to bingeing on hard liquor the day prior to coming to the ER. She is also homeless. Review of Systems Constitutional: Constitutional: Reports anorexia, Denies chills, Reports fatigue, Denies fever(s) and Reports poor appetite Cardiovascular: Cardiovascular: Denies chest pain, Denies dyspnea and Denies dyspnea on exertion Respiratory: Respiratory: Denies cough, Denies dyspnea and Denies dyspnea on exertion Gastrointestinal: Gastrointestinal: Denies hematochezia and Denies change in bowel habits Genitourinary: Genitourinary: Denies hematuria Musculoskeletal: Musculoskeletal: Denies back pain and Denies limited range of motion Neurologic: Denies focal weakness and Denies convulsions Psychiatric: Psychiatric: Denies depression and Denies mood swings Endocrine: Endocrine: Reports fatigue PMFSH Past Medical History Medical History Alcoholic cirrhosis of liver Family History Family History Mother Pancreatic cancer Social History Social History Household Members: None Housing: Homeless Do you presently have visiting nurse or other home services: No Alcohol intake: current Patient Tobacco Use Status: Former Tobacco user Substance Use Type: Marijuana service: No Current occupational status: disabled Meds Allergies Allergy/AdvReac Type Severity Reaction Status Date / Time levofloxacin [From Levaquin] Allergy Anaphylaxis Verified 03/02/21 10:48 Penicillins Allergy Anaphylaxis Verified 03/02/21 10:48 Sulfa (Sulfonamide Allergy Anaphylaxis Verified 03/02/21 10:48 Antibiotics) Active Medications: Current Medications Escitalopram Oxalate (Escitalopram Oxalate 10 Mg Tablet) 10 mg PO DAILY [facility] Last Admin: 03/03/21 09:20 Dose: 10 mg Documented by: Ferrous Sulfate (Ferrous Sulfate 324 Mg Tablet.) 324 mg PO BEDTIME [facility] Last Admin: 03/02/21 22:34 Dose: 324 mg Documented by: Folic Acid (Folic Acid 1 Mg Tablet) 1 mg PO DAILY [facility] Last Admin: 03/03/21 09:20 Dose: 1 mg Documented by: Gabapentin (Gabapentin 100 Mg Capsule) 200 mg PO BID [facility] Last Admin: 03/03/21 09:21 Dose: 200 mg Documented by: Hydroxyzine HCl (Hydroxyzine Hcl 25 Mg Tablet) 25 mg PO QID PRN PRN Reason: Anxiety Last Admin: 03/03/21 05:19 Dose: 25 mg Documented by: Lactated Ringer's (Lr) 1,000 mls @ 100 mls/hr IVCONT .Q10H [facility] Last Admin: 03/03/21 02:30 Dose: 100 mls/hr Documented by: Loperamide HCl (Loperamide Hcl 2 Mg Capsule) 2 mg PO Q4H PRN PRN Reason: diarrhea Magnesium Oxide (Magnesium Oxide 400 Mg Tablet) 400 mg PO BIDPC [facility] Medication (No Benzodiazepines) 1 each MISCELLANE DAILY [facility] Morphine Sulfate (Morphine Sulfate 2 Mg/Ml Cartridge) 2 mg IVPUSH Q4H PRN; Protocol PRN Reason: moderate pain Nadolol (Nadolol 20 Mg Tablet) 20 mg PO DAILY [facility]; Protocol Last Admin: 03/03/21 09:21 Dose: 20 mg Documented by: Naltrexone HCl (Naltrexone Hcl 50 Mg Tablet) 50 mg PO DAILY [facility] Last Admin: 03/03/21 09:21 Dose: 50 mg Documented by: Omeprazole (Omeprazole 20 Mg Capsule.) 20 mg PO BID@0630,1630 [facility] Last Admin: 03/03/21 05:19 Dose: 20 mg Documented by: Pharmacy Consult (Consult Rx Perform Med Rec) 1 each MISCELLANE ONCE PRN PRN Reason: Consult order Phenobarbital (Phenobarbital 30 Mg Tablet) 30 mg PO BID [facility] Stop: 03/04/21 21:01 Last Admin: 03/03/21 09:20 Dose: 30 mg Documented by: Phenobarbital (Phenobarbital 15 Mg Tablet) 15 mg PO BID [facility] Stop: 03/06/21 21:01 Phenobarbital (Phenobarbital 15 Mg Tablet) 15 mg PO DAILY [facility] Stop: 03/08/21 09:01 Sodium Chloride (0.9 % Sodium Chloride Flush 3 Ml Syringe) 3 ml IVFLUSH QSHIFT [facility] Last Admin: 03/03/21 07:28 Dose: Not Given Documented by: Spironolactone (Spironolactone 25 Mg Tablet) 100 mg PO DAILY [facility]; Protocol Last Admin: 03/03/21 09:21 Dose: 100 mg Documented by: Home Medications Medication Instructions Recorded Confirmed Last Taken Type acetaminophen 325 mg tablet 325 mg PO BID PRN 03/02/21 03/02/21 Unknown History escitalopram oxalate 10 mg tablet 1 tab PO DAILY 03/02/21 03/02/21 Unknown History ferrous gluconate 324 mg (38 mg 324 mg PO BEDTIME 03/02/21 03/02/21 Unknown History iron) tablet folic acid 1 mg tablet 1 tab PO DAILY 03/02/21 03/02/21 Unknown History furosemide 20 mg tablet 1 tab PO DAILY 03/02/21 03/02/21 Unknown History gabapentin 100 mg capsule 200 mg PO BID 03/02/21 03/02/21 Unknown History hydroxyzine HCl 25 mg tablet 1 tab PO QID PRN 03/02/21 03/02/21 Unknown History nadolol 20 mg tablet 1 tab PO DAILY 03/02/21 03/02/21 Unknown History naltrexone 50 mg tablet 1 tab PO DAILY 03/02/21 03/02/21 Unknown History pantoprazole 40 mg tablet,delayed 1 tab PO BID 03/02/21 03/02/21 Unknown History release spironolactone 100 mg tablet 1 tab PO DAILY 03/02/21 03/02/21 Unknown History Physical Exam Vital Signs: Vital Signs: Last Vital Signs Temp 97.8 F 03/03/21 09:33 Pulse 70 03/03/21 09:33 Resp 20 03/03/21 09:33 BP 130/58 L 03/03/21 09:33 Pulse Ox 95 03/03/21 09:33 BMI result Body Mass Index 32.3 Const: General: comfortable and no acute distress Orientation/consciousness: patient oriented x3 Neck: Neck: Yes no lymphadenopathy Resp: Auscultation: clear to auscultation bilaterally Cardio: Rhythm: regular rhythm GI: Other: Mild tenderness on the right side of the abdomen with no rebound or guarding, no Esposito's sign Palpation (GI): Soft to palpation, Tenderness to palpation present (GI) and no guarding Neuro: General: patient oriented x3 Results Labs Result diagrams: 03/06/21 06:05 03/06/21 06:05 Labs: Abnormal lab results 03/02/21 03/02/21 03/03/21 Range/Units 12:12 12:12 07:11 WBC 2.8 L (4.8-10.8) X10*3/uL RBC 4.02 L 3.52 L (4.20-5.50) X10*6/uL Hgb 10.7 L 9.4 L (12.0-16.0) g/dl Hct 33.1 L 29.4 L (37.0-47.0) % MCH 26.6 L 26.7 L (27.0-33.0) pg RDW 16.2 H 16.2 H (11.0-16.0) % Plt Count 63 L 45 L D (160-400) X10*3/uL Lymph % (Auto) 17.5 L (20-40) % Lymph # (Auto) 0.8 L (1.2-4.9) X10*3/uL PT (9.9-13.0) SEC INR (0.9-1.1) BUN 6 L (9-16) mg/dL Calcium 8.2 L (8.4-10.2) mg/dL Magnesium 1.4 L* (1.6-2.6) mg/dL Total Bilirubin 1.8 H (0.0-1.0) mg/dL Direct Bilirubin 1.0 H (0.0-0.5) mg/dL AST 44 H (5-31) U/L Total Protein (6.5-8.0) g/dL Albumin (3.5-5.0) g/dL Lipase 255 H (8-78) U/L 03/03/21 03/03/21 Range/Units 07:11 07:11 WBC (4.8-10.8) X10*3/uL RBC (4.20-5.50) X10*6/uL Hgb (12.0-16.0) g/dl Hct (37.0-47.0) % MCH (27.0-33.0) pg RDW (11.0-16.0) % Plt Count (160-400) X10*3/uL Lymph % (Auto) (20-40) % Lymph # (Auto) (1.2-4.9) X10*3/uL PT 15.2 H (9.9-13.0) SEC INR 1.3 H (0.9-1.1) BUN 5 L (9-16) mg/dL Calcium 7.4 L D (8.4-10.2) mg/dL Magnesium 1.5 L (1.6-2.6) mg/dL Total Bilirubin 1.2 H (0.0-1.0) mg/dL Direct Bilirubin 0.6 H (0.0-0.5) mg/dL AST 44 H (5-31) U/L Total Protein 5.3 L (6.5-8.0) g/dL Albumin 2.9 L (3.5-5.0) g/dL Lipase (8-78) U/L Short CBC 03/02/21 03/03/21 Range/Units 12:12 07:11 WBC 4.8 2.8 L (4.8-10.8) X10*3/uL Hgb 10.7 L 9.4 L (12.0-16.0) g/dl Hct 33.1 L 29.4 L (37.0-47.0) % Plt Count 63 L 45 L D (160-400) X10*3/uL BMP 03/02/21 03/03/21 12:12 07:11 Sodium 136 137 Potassium 3.7 3.5 Chloride 101 103 Carbon Dioxide 25 25 BUN 6 L 5 L Creatinine 0.66 0.63 Calcium 8.2 L 7.4 L D Liver Function 03/02/21 03/03/21 Range/Units 12:12 07:11 Total Bilirubin 1.8 H 1.2 H (0.0-1.0) mg/dL Direct Bilirubin 1.0 H 0.6 H (0.0-0.5) mg/dL AST 44 H 44 H (5-31) U/L ALT 22 23 (0-31) U/L Alkaline Phosphatase 99 78 D (39-117) U/L Albumin 3.5 2.9 L (3.5-5.0) g/dL All other labs normal. Assessment and Plan (1) Cholelithiasis: Status: Acute She came in because of abdominal pain along with multiple systemic symptoms with fatigue and weakness. She she has a CAT scan showing gallstones without signs of cholecystitis. She does have a long history of chronic liver disease and her current symptoms are likely so her to acute hepatitis from alcohol bingeing. She has evidence of portal hypertension as well on CT scan. She is anemic with leukopenia and thrombocytopenia from her chronic liver disease. Her bilirubin is also elevated consistent with her disease. She not have a surgical issue at this time but I will follow along while she is in the hospital. (2) Alcoholic cirrhosis of liver: Status: Acute She also has evidence of portal hypertension on CT scan. She has thrombocytopenia, and leukopenia secondary to her chronic liver disease. Procedures Date of Service Date of Service: 03/03/21
--- NOTE | 2021-03-03 16:13 | MHC.CM.PN ---
CM MET WITH PT IN ED OVERFLOW . PT REPORTS SHE HAS BECOME HOMELESS FOLLOWING THE OF HER S/O OF 20+ YEARS. SHE REPORTS AFTER HE PASSED, SHE RENTED A ROOM HOWEVER THE HOUSE SHE WAS IN WENT INTO FORECLOSURE. SHE REPORTS SINCE THEN SHE HAS BEEN COUCH SURFING. SHE REPORTS SHE HAS ADDED HER NAME TO SEVERAL LISTS FOR HOUSING AND DOES HAVE MONEY SAVED HOWEVER SHE DOES NOT HAVE A SMART PHONE OR WAY TO SEARCH FOR APARTMENTS. PT REPORTS SHE DOES HAVE A CM WITH [facility] HOWEVER SHE IS RARELY ABLE TO REACH HER SO SHE HAS BEEN LITTLE HELP PT IS INTERESTED IN A CARE TEAM REFERRAL FOR ETOH AND HOMELESSNESS. IMM DELIVERED. ORIGINAL GIVEN TO PT, COPY SENT TO [facility] CURRENTLY DC PLAN IS TBD LONG-TERM VS STR VS RETURN TO STAYING WITH OTHERS
[2021-03-03] MEDS: Magnesium Oxide 400 MG TABLET PO (17:01)
[2021-03-03] MEDS: Morphine Sulfate 2 MG/ML CARTRIDGE IVPUSH (17:01)
[2021-03-03] MEDS: 0.9 % Sodium Chloride Flush 3 ML SYRINGE IVFLUSH (17:01)
[2021-03-03] MEDS: Ferrous Sulfate 324 MG TABLET.DR PO (20:07)
[2021-03-04] VITALS (9 sets, daily range): BP systolic 114–138; BP diastolic 39–60; PULSE 56–75; RESP 14–18; TEMP 36.7–37.1; O2SAT 93–94
[2021-03-04] MEDS: hydrOXYzine HCL 25 MG TABLET PO ×2 (01:29→20:13)
[2021-03-04] MEDS: Morphine Sulfate 2 MG/ML CARTRIDGE IVPUSH (01:29)
[2021-03-04] MEDS: Lactated Ringers 1,000 ML 100 ML IVCONT ×2 (03:36→14:15)
[2021-03-04] MEDS: Omeprazole 20 MG CAPSULE.DR PO ×2 (06:15→15:42)
[2021-03-04] MEDS: Folic Acid 1 MG TABLET PO (09:12)
[2021-03-04] MEDS: PHENobarbitaL 30 MG TABLET PO ×2 (09:12→20:13)
[2021-03-04] MEDS: Spironolactone 25 MG TABLET 100 MG PO (09:12)
[2021-03-04] MEDS: Magnesium Oxide 400 MG TABLET PO (09:12)
[2021-03-04] MEDS: Gabapentin 100 MG CAPSULE 200 MG PO ×2 (09:13→20:13)
[2021-03-04] MEDS: 0.9 % Sodium Chloride Flush 3 ML SYRINGE IVFLUSH (09:13)
[2021-03-04] MEDS: Escitalopram Oxalate 10 MG TABLET PO (09:13)
--- NOTE | 2021-03-04 09:17 | PC.NURSE ---
Pt A&Ox3, LCA, pt c/o L calf and ankle pain, assessed by this RN, no swelling, warm, redness at this time. +pulses. NSR on monitor. CIWA of 1, awaiting bed assignment, will continue to monitor
--- NOTE | 2021-03-04 09:36 | HO.PM.IMPN ---
Subjective Subjective Date of Service: 03/04/21 Interval History: cc: abd pain interval history: pain improving, difficulty ambulating Cardiovascular Cardiovascular: Reports no additional cardiovascular complaints Respiratory Respiratory: Reports no additional respiratory complaints Physical Exam Vital Signs: Vital Signs: Last Vital Signs Temp 98.7 F 03/04/21 08:40 Pulse 75 03/04/21 09:12 Resp 15 03/04/21 08:40 BP 137/56 L 03/04/21 09:12 Pulse Ox 94 03/04/21 08:40 BMI result Body Mass Index 32.3 General: AO X 3, no acute distress Resp:? CTA bilateral, no accessory muscles used CVS: S1,S2,RRR GI: soft, ruq tender no longer tender, non distended Neuro:? motor grossly intact, alert Psych: appropriate affect, appropriate insight? Objective Data Active Medications Escitalopram Oxalate (Escitalopram Oxalate 10 Mg Tablet) 10 mg PO DAILY [facility] Last Admin: 03/04/21 09:13 Dose: 10 mg Documented by: NOLA Ferrous Sulfate (Ferrous Sulfate 324 Mg Tablet.) 324 mg PO BEDTIME [facility] Last Admin: 03/03/21 20:07 Dose: 324 mg Documented by: SARI Folic Acid (Folic Acid 1 Mg Tablet) 1 mg PO DAILY [facility] Last Admin: 03/04/21 09:12 Dose: 1 mg Documented by: NOLA Gabapentin (Gabapentin 100 Mg Capsule) 200 mg PO BID [facility] Last Admin: 03/04/21 09:13 Dose: 200 mg Documented by: NOLA Hydroxyzine HCl (Hydroxyzine Hcl 25 Mg Tablet) 25 mg PO QID PRN PRN Reason: Anxiety Last Admin: 03/04/21 01:29 Dose: 25 mg Documented by: CARLO Lactated Ringer's (Lr) 1,000 mls @ 100 mls/hr IVCONT .Q10H [facility] Last Admin: 03/04/21 03:36 Dose: 100 mls/hr Documented by: CARLO Loperamide HCl (Loperamide Hcl 2 Mg Capsule) 2 mg PO Q4H PRN PRN Reason: diarrhea Magnesium Oxide (Magnesium Oxide 400 Mg Tablet) 400 mg PO BIDPC [facility] Last Admin: 03/04/21 09:12 Dose: 400 mg Documented by: HO.N-RAMSK Medication (No Benzodiazepines) 1 each MISCELLANE DAILY [facility] Morphine Sulfate (Morphine Sulfate 2 Mg/Ml Cartridge) 2 mg IVPUSH Q4H PRN; Protocol PRN Reason: moderate pain Last Admin: 03/04/21 01:29 Dose: 2 mg Documented by: CARLO Nadolol (Nadolol 20 Mg Tablet) 20 mg PO DAILY [facility]; Protocol Last Admin: 03/03/21 09:21 Dose: 20 mg Documented by: SARI Naltrexone HCl (Naltrexone Hcl 50 Mg Tablet) 50 mg PO DAILY [facility] Last Admin: 03/03/21 09:21 Dose: 50 mg Documented by: SARI Omeprazole (Omeprazole 20 Mg Capsule.) 20 mg PO BID@0630,1630 [facility] Last Admin: 03/04/21 06:15 Dose: 20 mg Documented by: CARLO Pharmacy Consult (Consult Rx Perform Med Rec) 1 each MISCELLANE ONCE PRN PRN Reason: Consult order Phenobarbital (Phenobarbital 30 Mg Tablet) 30 mg PO BID [facility] Stop: 03/04/21 21:01 Last Admin: 03/04/21 09:12 Dose: 30 mg Documented by: NOLA Phenobarbital (Phenobarbital 15 Mg Tablet) 15 mg PO BID [facility] Stop: 03/06/21 21:01 Phenobarbital (Phenobarbital 15 Mg Tablet) 15 mg PO DAILY [facility] Stop: 03/08/21 09:01 Sodium Chloride (0.9 % Sodium Chloride Flush 3 Ml Syringe) 3 ml IVFLUSH QSHIFT [facility] Last Admin: 03/04/21 09:13 Dose: 3 ml Documented by: NOLA Spironolactone (Spironolactone 25 Mg Tablet) 100 mg PO DAILY [facility]; Protocol Last Admin: 03/04/21 09:12 Dose: 100 mg Documented by: NLOA Labs CBC & Chem 7: 03/03/21 07:11 03/03/21 07:11 Microbiology Microbiology Results: Microbiology 03/02/21 17:20 Blood Culture - Preliminary Blood - Venous No growth after 24 hours. 03/02/21 17:20 Blood Culture - Preliminary Blood - Venous No growth after 24 hours. Assessment and Plan (1) Acute alcoholic hepatitis: Status: Acute Assessment and Plan: ?? 56F presented with abdominal pain acute alcoholic hepatatis in setting of chronic alcoholic cirrhosis with varices. high protein diet, pain control, monitor lfts continue aldactone, PPI, holding lasix appetite improved cholelithiasis with distended GB surgery appreciated, no evidence of acute cholecystitis hypomagnesemia replace and monitor alcohol dependence with withdrawal phenobarb, ciwa, care team eval pancytopenia due to cirrhosis depression lexapro dvt prophylaxis - mechanical due to thrombocytopenia full code Quality Stroke Does the patient have a stroke diagnosis?: No VTE Prior VTE?: No VTE Risk Level:: Medical - moderate - high VTE Device Contraindication: N/A - Device Ordered VTE Drug Contraindication: Treatment Not Tolerated
[2021-03-04] MEDS: Naltrexone HCl 50 MG TABLET PO (10:49)
[2021-03-04] MEDS: nadoloL 20 MG TABLET PO (10:50)
--- NOTE | 2021-03-04 10:57 | PC.NURSE ---
Pt OOB to BR independ, no complaints of pain, changed gown. A&Ox3 with occasional confusion. Awaiting bed assignment. Will continue to monitor.
--- NOTE | 2021-03-04 11:33 | P.PNGS_ITS ---
Subjective Subjective Date of Service: 03/04/21 Interval history: States she feels well Mild pain on the right side of her abdomen Tolerating diet Physical Exam Vital Signs: Vital Signs: Last Vital Signs Temp 98.7 F 03/04/21 08:40 Pulse 75 03/04/21 11:13 Resp 15 03/04/21 08:40 BP 137/56 L 03/04/21 11:13 Pulse Ox 94 03/04/21 08:40 BMI result Body Mass Index 32.3 Const: General: comfortable and no acute distress Resp: Effort & Inspection: normal respiratory effort Cardio: Rate: regular rate GI: Other: Mild tenderness on the right upper quadrant, no Esposito's sign Palpation (GI): Soft to palpation, not firm and no guarding Objective Data Active Medications Escitalopram Oxalate (Escitalopram Oxalate 10 Mg Tablet) 10 mg PO DAILY [facility] Last Admin: 03/04/21 09:13 Dose: 10 mg Documented by: NOLA Ferrous Sulfate (Ferrous Sulfate 324 Mg Tablet.) 324 mg PO BEDTIME [facility] Last Admin: 03/03/21 20:07 Dose: 324 mg Documented by: SARI Folic Acid (Folic Acid 1 Mg Tablet) 1 mg PO DAILY [facility] Last Admin: 03/04/21 09:12 Dose: 1 mg Documented by: NOLA Gabapentin (Gabapentin 100 Mg Capsule) 200 mg PO BID [facility] Last Admin: 03/04/21 09:13 Dose: 200 mg Documented by: NOLA Hydroxyzine HCl (Hydroxyzine Hcl 25 Mg Tablet) 25 mg PO QID PRN PRN Reason: Anxiety Last Admin: 03/04/21 01:29 Dose: 25 mg Documented by: CARLO Lactated Ringer's (Lr) 1,000 mls @ 100 mls/hr IVCONT .Q10H [facility] Last Admin: 03/04/21 03:36 Dose: 100 mls/hr Documented by: CARLO Loperamide HCl (Loperamide Hcl 2 Mg Capsule) 2 mg PO Q4H PRN PRN Reason: diarrhea Magnesium Oxide (Magnesium Oxide 400 Mg Tablet) 400 mg PO BIDPC [facility] Last Admin: 03/04/21 09:12 Dose: 400 mg Documented by: NOLA Medication (No Benzodiazepines) 1 each MISCELLANE DAILY [facility] Morphine Sulfate (Morphine Sulfate 2 Mg/Ml Cartridge) 2 mg IVPUSH Q4H PRN; Protocol PRN Reason: moderate pain Last Admin: 03/04/21 01:29 Dose: 2 mg Documented by: CARLO Nadolol (Nadolol 20 Mg Tablet) 20 mg PO DAILY [facility]; Protocol Last Admin: 03/04/21 10:50 Dose: 20 mg Documented by: NOLA Naltrexone HCl (Naltrexone Hcl 50 Mg Tablet) 50 mg PO DAILY [facility] Last Admin: 03/04/21 10:49 Dose: 50 mg Documented by: NOLA Omeprazole (Omeprazole 20 Mg Capsule.) 20 mg PO BID@0630,1630 [facility] Last Admin: 03/04/21 06:15 Dose: 20 mg Documented by: CARLO Pharmacy Consult (Consult Rx Perform Med Rec) 1 each MISCELLANE ONCE PRN PRN Reason: Consult order Phenobarbital (Phenobarbital 30 Mg Tablet) 30 mg PO BID [facility] Stop: 03/04/21 21:01 Last Admin: 03/04/21 09:12 Dose: 30 mg Documented by: NOLA Phenobarbital (Phenobarbital 15 Mg Tablet) 15 mg PO BID [facility] Stop: 03/06/21 21:01 Phenobarbital (Phenobarbital 15 Mg Tablet) 15 mg PO DAILY [facility] Stop: 03/08/21 09:01 Sodium Chloride (0.9 % Sodium Chloride Flush 3 Ml Syringe) 3 ml IVFLUSH QSHIFT [facility] Last Admin: 03/04/21 09:13 Dose: 3 ml Documented by: NOLA Spironolactone (Spironolactone 25 Mg Tablet) 100 mg PO DAILY [facility]; Protocol Last Admin: 03/04/21 09:12 Dose: 100 mg Documented by: NOLA Labs CBC & Chem 7: 03/03/21 07:11 03/03/21 07:11 Microbiology Microbiology Results: Microbiology 03/02/21 17:20 Blood Culture - Preliminary Blood - Venous No growth after 24 hours. 03/02/21 17:20 Blood Culture - Preliminary Blood - Venous No growth after 24 hours. Procedures Date of Service Date of Service: 03/04/21 Progress Note: A&P Assessment and plan (1) Cholelithiasis: Status: Acute Assessment and Plan: No cholecystitis No surgical intervention Has alcoholic liver disease with subsequent cirrhosis, thrombocytopenia and leukopenia (2) Alcoholic cirrhosis of liver: Status: Acute Assessment and Plan: Management as per hospitalist service Fall Risk Details Current Medications: Current Medications Escitalopram Oxalate (Escitalopram Oxalate 10 Mg Tablet) 10 mg PO DAILY [facility] Last Admin: 03/04/21 09:13 Dose: 10 mg Documented by: Ferrous Sulfate (Ferrous Sulfate 324 Mg Tablet.) 324 mg PO BEDTIME [facility] Last Admin: 03/03/21 20:07 Dose: 324 mg Documented by: Folic Acid (Folic Acid 1 Mg Tablet) 1 mg PO DAILY [facility] Last Admin: 03/04/21 09:12 Dose: 1 mg Documented by: Gabapentin (Gabapentin 100 Mg Capsule) 200 mg PO BID [facility] Last Admin: 03/04/21 09:13 Dose: 200 mg Documented by: Hydroxyzine HCl (Hydroxyzine Hcl 25 Mg Tablet) 25 mg PO QID PRN PRN Reason: Anxiety Last Admin: 03/04/21 01:29 Dose: 25 mg Documented by: Lactated Ringer's (Lr) 1,000 mls @ 100 mls/hr IVCONT .Q10H [facility] Last Admin: 03/04/21 03:36 Dose: 100 mls/hr Documented by: Loperamide HCl (Loperamide Hcl 2 Mg Capsule) 2 mg PO Q4H PRN PRN Reason: diarrhea Magnesium Oxide (Magnesium Oxide 400 Mg Tablet) 400 mg PO BIDPC [facility] Last Admin: 03/04/21 09:12 Dose: 400 mg Documented by: Medication (No Benzodiazepines) 1 each MISCELLANE DAILY [facility] Morphine Sulfate (Morphine Sulfate 2 Mg/Ml Cartridge) 2 mg IVPUSH Q4H PRN; Protocol PRN Reason: moderate pain Last Admin: 03/04/21 01:29 Dose: 2 mg Documented by: Nadolol (Nadolol 20 Mg Tablet) 20 mg PO DAILY [facility]; Protocol Last Admin: 03/04/21 10:50 Dose: 20 mg Documented by: Naltrexone HCl (Naltrexone Hcl 50 Mg Tablet) 50 mg PO DAILY [facility] Last Admin: 03/04/21 10:49 Dose: 50 mg Documented by: Omeprazole (Omeprazole 20 Mg Capsule.) 20 mg PO BID@0630,1630 [facility] Last Admin: 03/04/21 06:15 Dose: 20 mg Documented by: Pharmacy Consult (Consult Rx Perform Med Rec) 1 each MISCELLANE ONCE PRN PRN Reason: Consult order Phenobarbital (Phenobarbital 30 Mg Tablet) 30 mg PO BID [facility] Stop: 03/04/21 21:01 Last Admin: 03/04/21 09:12 Dose: 30 mg Documented by: Phenobarbital (Phenobarbital 15 Mg Tablet) 15 mg PO BID [facility] Stop: 03/06/21 21:01 Phenobarbital (Phenobarbital 15 Mg Tablet) 15 mg PO DAILY [facility] Stop: 03/08/21 09:01 Sodium Chloride (0.9 % Sodium Chloride Flush 3 Ml Syringe) [facility] Last Admin: 03/04/21 09:13 Dose: 3 ml Documented by: Spironolactone (Spironolactone 25 Mg Tablet) 100 mg PO DAILY [facility]; Protocol Last Admin: 03/04/21 09:12 Dose: 100 mg Documented by: Time Spent With Patient Time: Total time spent is greater than 50% in coordination of care (as documented) at patient's floor/unit and/or counseling patient: Time with patient: 15 - 24 minutes Quality Stroke Does the patient have a stroke diagnosis?: No VTE Prior VTE?: No VTE Risk Level:: Medical - moderate - high VTE Device Contraindication: N/A - Device Ordered VTE Drug Contraindication: Treatment Not Tolerated
--- NOTE | 2021-03-04 13:36 | MHC.CM.PN ---
PHYSICAL THERAPY IS RECOMMENDING STR CM MET WITH PT WHO IS REQUESTING REFERRALS IN THIS AREA SHE REPORTS SHE IS VACCINATED AGAINST COVID AND HAS HAD THE BOOSTER SHE BELIEVES IT WAS THE [facility] REFERRALS PLACED
[2021-03-04] MEDS: Docusate Sodium 100 MG CAPSULE PO (14:15)
--- NOTE | 2021-03-04 14:23 | MHC.RECOVRN ---
Met with pt in ED Overflow 5 to discuss substance use. Pt began alcohol use as a teenager, denies other substances. Pt reports drinking 1 pint of 100 proof schnapps daily x 1 month. Pt also drinks wine and vodka. Prior to this return to use, pt had been at the [facility]. Pt states I've been in and out of places for quite some time. ATS x 3 including [facility] and [facility]. Regarding [facility], pt states It didn't work for me. Pt has attended AA meetings in the past, states They weren't for me. Pts longest period of recovery was 8 years while , states I just stopped. Pt is currently prescribed naltrexone, although patient did not know what it is used for or who is prescribing the medication-believes it is PCP in [place]. Pt educated regarding naltrexone. When asked about goals for recovery, pt states I just want to be independent. In regards to further tx, pt states It doesn't appeal to me. Pts priority at this time is housing. Pt provided with recovery resources, declines referrals at this time. Pt given t/w contact information if questions or concerns arise.
--- NOTE | 2021-03-04 19:23 | PC.NURSE ---
Assumed care of pt at 1900. Pt independently ambulatory to and from bathroom, resting in bed and in NAD
[2021-03-04] MEDS: Ferrous Sulfate 324 MG TABLET.DR PO (20:14)
[2021-03-05] VITALS (9 sets, daily range): BP systolic 93–133; BP diastolic 40–69; PULSE 55–69; RESP 12–20; TEMP 36.7–37; O2SAT 92–98
[2021-03-05] MEDS: Lactated Ringers 1,000 ML 100 ML IVCONT ×2 (06:22→17:00)
[2021-03-05] MEDS: Omeprazole 20 MG CAPSULE.DR PO ×2 (06:22→17:13)
[2021-03-05 07:16] LABS: Hematocrit 32.4 % (37.0-47.0); Hemoglobin 10.5 g/dl (12.0-16.0); Mean Corpuscular HGB Conc 32.4 g/dl (31.0-35.0); Mean Corpuscular Hemoglobin 27.1 pg (27.0-33.0); Mean Corpuscular Volume 83.5 fL (80.0-98.0); Mean Platelet Volume 10.9 fL (9.4-12.3); Red Blood Count 3.88 X10*6/uL (4.20-5.50); White Blood Count 4.7 X10*3/uL (4.8-10.8)
[2021-03-05 07:17] LABS: Platelet Count 67 X10*3/uL (160-400)
[2021-03-05 07:22] LABS: INTERNATIONAL NORM RATIO 1.4 (0.9-1.1); Prothrombin Time 15.8 SEC (9.9-13.0)
[2021-03-05 07:41] LABS: Alanine Aminotransferase 21 U/L (0-31); Albumin Level 3.1 g/dL (3.5-5.0); Alkaline Phosphatase 82 U/L (39-117); Anion Gap 9 (12-20); Aspartate Amino Transferase 37 U/L (5-31); Bilirubin Direct 0.5 mg/dL (0.0-0.5); Bilirubin Total 0.8 mg/dL (0.0-1.0); Blood Urea Nitrogen 5 mg/dL (9-16); Calcium 8.7 mg/dL (8.4-10.2); Carbon Dioxide 32 mmol/L (22-29); Chloride 104 mmol/L (96-108); Creatinine Clr Calc Pharmacy 74.9; Estimated Glomerular Filt Rate > 60; Glucose Fasting 91 mg/dL (60-99); Magnesium 1.2 mg/dL (1.6-2.6); Potassium 3.9 mmol/L (3.3-5.1); Sodium 141 mmol/L (135-145); Total Protein 5.8 g/dL (6.5-8.0)
[2021-03-05] MEDS: Spironolactone 25 MG TABLET 100 MG PO (08:42)
[2021-03-05] MEDS: Gabapentin 100 MG CAPSULE 200 MG PO ×2 (08:44→20:15)
[2021-03-05] MEDS: PHENobarbitaL 15 MG TABLET PO ×2 (08:44→20:15)
[2021-03-05] MEDS: Magnesium Sulfate/H2O 2 GM/50 ML PIGGYBACK IV (08:44)
[2021-03-05] MEDS: Magnesium Oxide 400 MG TABLET PO ×2 (08:44→17:13)
[2021-03-05] MEDS: Escitalopram Oxalate 10 MG TABLET PO (08:44)
[2021-03-05] MEDS: Folic Acid 1 MG TABLET PO (08:44)
[2021-03-05] MEDS: Docusate Sodium 100 MG CAPSULE PO (08:44)
--- NOTE | 2021-03-05 08:52 | PC.NURSE ---
Pt A&Ox3 at this time, sitting at side of bed eating breakfast, no complaints of pain at this time. Medicated as per [facility] orders. LCA, NSR on monitor in the 60's. Call lopes in reach, bedside commode next to patient. Will continue to monitor.
[2021-03-05] MEDS: Naltrexone HCl 50 MG TABLET PO (09:34)
[2021-03-05] MEDS: nadoloL 20 MG TABLET PO (09:34)
--- NOTE | 2021-03-05 11:03 | HO.PM.IMPN ---
Subjective Subjective Date of Service: 03/05/21 Interval History: cc: abd pain interval history: pain improving but still present, difficulty ambulating Cardiovascular Cardiovascular: Reports no additional cardiovascular complaints Respiratory Respiratory: Reports no additional respiratory complaints Physical Exam Vital Signs: Vital Signs: Last Vital Signs Temp 98.1 F 03/05/21 06:00 Pulse 66 03/05/21 10:15 Resp 18 03/05/21 10:15 BP 117/42 L 03/05/21 10:15 Pulse Ox 95 03/05/21 10:15 BMI result Body Mass Index 32.3 General: AO X 3, no acute distress Resp:? CTA bilateral, no accessory muscles used CVS: S1,S2,RRR GI: soft, ruq mildly tender, non distended Neuro:? motor grossly intact, alert Psych: appropriate affect, appropriate insight? Objective Data Active Medications Docusate Sodium (Docusate Sodium 100 Mg Capsule) 100 mg PO BID [facility] Last Admin: 03/05/21 08:44 Dose: 100 mg Documented by: NOLA Escitalopram Oxalate (Escitalopram Oxalate 10 Mg Tablet) 10 mg PO DAILY [facility] Last Admin: 03/05/21 08:44 Dose: 10 mg Documented by: NOLA Ferrous Sulfate (Ferrous Sulfate 324 Mg Tablet.) 324 mg PO BEDTIME [facility] Last Admin: 03/04/21 20:14 Dose: 324 mg Documented by: NICOLAS Folic Acid (Folic Acid 1 Mg Tablet) 1 mg PO DAILY [facility] Last Admin: 03/05/21 08:44 Dose: 1 mg Documented by: NOLA Gabapentin (Gabapentin 100 Mg Capsule) 200 mg PO BID [facility] Last Admin: 03/05/21 08:44 Dose: 200 mg Documented by: NOLA Hydroxyzine HCl (Hydroxyzine Hcl 25 Mg Tablet) 25 mg PO QID PRN PRN Reason: Anxiety Last Admin: 03/04/21 20:13 Dose: 25 mg Documented by: NICOLAS Lactated Ringer's (Lr) 1,000 mls @ 100 mls/hr IVCONT .Q10H [facility] Last Admin: 03/05/21 06:22 Dose: 100 mls/hr Documented by: NICOLAS Loperamide HCl (Loperamide Hcl 2 Mg Capsule) 2 mg PO Q4H PRN PRN Reason: diarrhea Magnesium Oxide (Magnesium Oxide 400 Mg Tablet) 400 mg PO BIDPC [facility] Last Admin: 03/05/21 08:44 Dose: 400 mg Documented by: NOLA Medication (No Benzodiazepines) 1 each MISCELLANE DAILY [facility] Morphine Sulfate (Morphine Sulfate 2 Mg/Ml Cartridge) 2 mg IVPUSH Q4H PRN; Protocol PRN Reason: moderate pain Last Admin: 03/04/21 01:29 Dose: 2 mg Documented by: CARLO Nadolol (Nadolol 20 Mg Tablet) 20 mg PO DAILY [facility]; Protocol Last Admin: 03/05/21 09:34 Dose: 20 mg Documented by: NOLA Naltrexone HCl (Naltrexone Hcl 50 Mg Tablet) 50 mg PO DAILY [facility] Last Admin: 03/05/21 09:34 Dose: 50 mg Documented by: NOLA Omeprazole (Omeprazole 20 Mg Capsule.) 20 mg PO BID@0630,1630 [facility] Last Admin: 03/05/21 06:22 Dose: 20 mg Documented by: NICOLAS Pharmacy Consult (Consult Rx Perform Med Rec) 1 each MISCELLANE ONCE PRN PRN Reason: Consult order Phenobarbital (Phenobarbital 15 Mg Tablet) 15 mg PO BID [facility] Stop: 03/06/21 21:01 Last Admin: 03/05/21 08:44 Dose: 15 mg Documented by: NOLA Phenobarbital (Phenobarbital 15 Mg Tablet) 15 mg PO DAILY [facility] Stop: 03/08/21 09:01 Sodium Chloride (0.9 % Sodium Chloride Flush 3 Ml Syringe) 3 ml IVFLUSH QSHIFT [facility] Last Admin: 03/05/21 08:53 Dose: Not Given Documented by: NOLA Non-Admin Reason: IV Running Spironolactone (Spironolactone 25 Mg Tablet) 100 mg PO DAILY [facility]; Protocol Last Admin: 03/05/21 08:42 Dose: 100 mg Documented by: NOLA Labs CBC & Chem 7: 03/05/21 07:07 03/05/21 07:07 Labs: Laboratory Results - last 24 hr 03/05/21 03/05/21 03/05/21 07:07 07:07 07:07 MCV 83.5 MCH 27.1 MCHC 32.4 RDW 17.0 H Plt Count 67 L D MPV 10.9 Absolute Nucleated RBC 0.000 Nucleated RBC % (auto) 0.0 PT 15.8 H INR 1.4 H Anion Gap 9 L Estim Creat Clear Calc 74.9 Estimated GFR > 60 Fasting Glucose 91 Calcium 8.7 D Magnesium 1.2 L* Total Bilirubin 0.8 Direct Bilirubin 0.5 AST 37 H ALT 21 Alkaline Phosphatase 82 Total Protein 5.8 L Albumin 3.1 L Microbiology Microbiology Results: Microbiology 03/02/21 17:20 Blood Culture - Preliminary Blood - Venous No growth after 48 hours. 03/02/21 17:20 Blood Culture - Preliminary Blood - Venous No growth after 48 hours. Assessment and Plan (1) Acute alcoholic hepatitis: Status: Acute Assessment and Plan: ?? 56F presented with abdominal pain acute alcoholic hepatatis in setting of chronic alcoholic cirrhosis with varices. high protein diet, pain control, monitor lfts continue aldactone, PPI, holding lasix appetite improved overall, but still with pain cholelithiasis with distended GB surgery appreciated, no evidence of acute cholecystitis hypomagnesemia replace and monitor alcohol dependence with withdrawal phenobarb, ciwa, care team appreciated pancytopenia due to cirrhosis difficulty ambulating plan for STR on discharge depression lexapro dvt prophylaxis - mechanical due to thrombocytopenia full code Quality Stroke Does the patient have a stroke diagnosis?: No VTE Prior VTE?: No VTE Risk Level:: Medical - moderate - high VTE Device Contraindication: N/A - Device Ordered VTE Drug Contraindication: Treatment Not Tolerated
--- NOTE | 2021-03-05 15:53 | MHC.CM.ED ---
Broad referrals placed for STR per PT recommendation. No acceptance at this time. Met with pt very briefly to review d/c plans. Pt unsure of what she will do following d/c. She had been staying in a hotel and prior to that she was staying with friends. May need to expand STR search: Some facilities are apprehensive d/t pt's housing insecurity. CM to follow on referral search 03/06.
--- NOTE | 2021-03-05 17:26 | PC.NURSE ---
Pt A&Ox3, asking for IV dressing to be changed, IV dressing changed by this RN. Pt OOB to commode independently. No complaints of pain at this time, awaiting bed assignment. Will continue to monitor.
--- NOTE | 2021-03-05 19:42 | PC.NURSE ---
Report called to invik RN. Pt to floor via wc in stable condition w/ all belongings, attached to portable monitor for transport
[2021-03-05] MEDS: Ferrous Sulfate 324 MG TABLET.DR PO (20:15)
[2021-03-06] VITALS (10 sets, daily range): BP systolic 99–134; BP diastolic 36–72; PULSE 60–78; RESP 16–20; TEMP 36–36.8; O2SAT 92–98
[2021-03-06] MEDS: Omeprazole 20 MG CAPSULE.DR PO ×2 (05:50→17:32)
[2021-03-06 06:26] LABS: Hematocrit 35.3 % (37.0-47.0); Hemoglobin 11.1 g/dl (12.0-16.0); Mean Corpuscular HGB Conc 31.4 g/dl (31.0-35.0); Mean Corpuscular Hemoglobin 26.2 pg (27.0-33.0); Mean Corpuscular Volume 83.3 fL (80.0-98.0); Mean Platelet Volume 11.4 fL (9.4-12.3); Platelet Count 100 X10*3/uL (160-400); Red Blood Count 4.24 X10*6/uL (4.20-5.50); Red Cell Distribution Width 17.2 % (11.0-16.0); White Blood Count 4.7 X10*3/uL (4.8-10.8)
[2021-03-06 07:01] LABS: Alanine Aminotransferase 19 U/L (0-31); Albumin Level 3.1 g/dL (3.5-5.0); Alkaline Phosphatase 86 U/L (39-117); Anion Gap 11 (12-20); Aspartate Amino Transferase 30 U/L (5-31); Bilirubin Direct 0.4 mg/dL (0.0-0.5); Bilirubin Total 0.9 mg/dL (0.0-1.0); Blood Urea Nitrogen 7 mg/dL (9-16); Calcium 8.8 mg/dL (8.4-10.2); Carbon Dioxide 29 mmol/L (22-29); Chloride 105 mmol/L (96-108); Estimated Glomerular Filt Rate > 60; Glucose Fasting 98 mg/dL (60-99); Magnesium 1.6 mg/dL (1.6-2.6); Potassium 3.8 mmol/L (3.3-5.1); Sodium 141 mmol/L (135-145)
[2021-03-06] MEDS: Spironolactone 25 MG TABLET 100 MG PO (10:33)
[2021-03-06] MEDS: Escitalopram Oxalate 10 MG TABLET PO (10:33)
[2021-03-06] MEDS: Naltrexone HCl 50 MG TABLET PO (10:33)
[2021-03-06] MEDS: Magnesium Oxide 400 MG TABLET PO ×2 (10:33→17:32)
[2021-03-06] MEDS: Gabapentin 100 MG CAPSULE 200 MG PO ×2 (10:34→20:23)
[2021-03-06] MEDS: Folic Acid 1 MG TABLET PO (10:34)
[2021-03-06] MEDS: PHENobarbitaL 15 MG TABLET PO ×2 (10:34→20:23)
[2021-03-06] MEDS: nadoloL 20 MG TABLET PO (10:35)
[2021-03-06] MEDS: 0.9 % Sodium Chloride Flush 3 ML SYRINGE IVFLUSH ×3 (10:35→20:24)
[2021-03-06] MEDS: Morphine Sulfate 2 MG/ML CARTRIDGE IVPUSH ×2 (11:09→20:21)
--- NOTE | 2021-03-06 11:31 | P.PNIM_ITS ---
Subjective Subjective Date of Service: 03/06/21 Interval History: the patient was seen and evaluated this morning Laying in bed, still reporting feeling tired and has no energy Denies any fever, chills or shortness of breath No reported other overnight events. Systemic review: No fever, chills or weakness No chest pain, palpitation No shortness of breath or coughing No abdominal pain, nausea or vomiting No urinary symptoms Physical Exam Vital Signs: Vital Signs: Last Vital Signs Temp 96.8 F 03/06/21 10:53 Pulse 65 03/06/21 10:53 Resp 19 03/06/21 10:53 BP 134/72 03/06/21 10:53 Pulse Ox 96 03/06/21 10:53 BMI result Body Mass Index 32.3 Const: Other: Constitutional : Alert, oriented, not in distress Neck : Normal inspection, Supple Cardiovascular : RRR, S1 S2, no lower extremity edema Respiratory : fair bilateral air entry, no crackles, wheezes or rhonchi Gastrointestinal: soft, lax, Normal bowel sounds, Non tender Skin : Warm, Dry, spider nevi eyes on her recent chest Neurological : Alert & oriented x3, No focal deficit Objective Data Active Medications Docusate Sodium (Docusate Sodium 100 Mg Capsule) 100 mg PO BID [facility] Last Admin: 03/06/21 10:35 Dose: Not Given Documented by: NILAY Non-Admin Reason: Patient Refused Escitalopram Oxalate (Escitalopram Oxalate 10 Mg Tablet) 10 mg PO DAILY [facility] Last Admin: 03/06/21 10:33 Dose: 10 mg Documented by: NILAY Ferrous Sulfate (Ferrous Sulfate 324 Mg Tablet.) 324 mg PO BEDTIME [facility] Last Admin: 03/05/21 20:15 Dose: 324 mg Documented by: TIMA Folic Acid (Folic Acid 1 Mg Tablet) 1 mg PO DAILY [facility] Last Admin: 03/06/21 10:34 Dose: 1 mg Documented by: NILAY Gabapentin (Gabapentin 100 Mg Capsule) 200 mg PO BID [facility] Last Admin: 03/06/21 10:34 Dose: 200 mg Documented by: NILAY Hydroxyzine HCl (Hydroxyzine Hcl 25 Mg Tablet) 25 mg PO QID PRN PRN Reason: Anxiety Last Admin: 03/04/21 20:13 Dose: 25 mg Documented by: NICOLAS Loperamide HCl (Loperamide Hcl 2 Mg Capsule) 2 mg PO Q4H PRN PRN Reason: diarrhea Magnesium Oxide (Magnesium Oxide 400 Mg Tablet) 400 mg PO BIDPC [facility] Last Admin: 03/06/21 10:33 Dose: 400 mg Documented by: NILAY Medication (No Benzodiazepines) 1 each MISCELLANE DAILY [facility] Morphine Sulfate (Morphine Sulfate 2 Mg/Ml Cartridge) 2 mg IVPUSH Q4H PRN; Protocol PRN Reason: moderate pain Last Admin: 03/06/21 11:09 Dose: 2 mg Documented by: NILAY Nadolol (Nadolol 20 Mg Tablet) 20 mg PO DAILY [facility]; Protocol Last Admin: 03/06/21 10:35 Dose: 20 mg Documented by: NILAY Naltrexone HCl (Naltrexone Hcl 50 Mg Tablet) 50 mg PO DAILY [facility] Last Admin: 03/06/21 10:33 Dose: 50 mg Documented by: NILAY Omeprazole (Omeprazole 20 Mg Capsule.Dr) 20 mg PO BID@0630,1630 [facility] Last Admin: 03/06/21 05:50 Dose: 20 mg Documented by: JASMIN Pharmacy Consult (Consult Rx Perform Med Rec) 1 each MISCELLANE ONCE PRN PRN Reason: Consult order Phenobarbital (Phenobarbital 15 Mg Tablet) 15 mg PO BID [facility] Stop: 03/06/21 21:01 Last Admin: 03/06/21 10:34 Dose: 15 mg Documented by: NILAY Phenobarbital (Phenobarbital 15 Mg Tablet) 15 mg PO DAILY [facility] Stop: 03/08/21 09:01 Sodium Chloride (0.9 % Sodium Chloride Flush 3 Ml Syringe) 3 ml IVFLUSH QSHIFT [facility] Last Admin: 03/06/21 10:35 Dose: 3 ml Documented by: NILAY Spironolactone (Spironolactone 25 Mg Tablet) 100 mg PO DAILY [facility]; Protocol Last Admin: 03/06/21 10:33 Dose: 100 mg Documented by: NILAY Labs CBC & Chem 7: 03/06/21 06:05 03/06/21 06:05 Labs: Laboratory Results - last 24 hr 03/06/21 03/06/21 06:05 06:05 MCV 83.3 MCH 26.2 L MCHC 31.4 RDW 17.2 H Plt Count 100 L D MPV 11.4 Absolute Nucleated RBC 0.000 Nucleated RBC % (auto) 0.0 Anion Gap 11 L Estim Creat Clear Calc 83.0 Estimated GFR > 60 Fasting Glucose 98 Calcium 8.8 Magnesium 1.6 Total Bilirubin 0.9 Direct Bilirubin 0.4 AST 30 ALT 19 Alkaline Phosphatase 86 Total Protein 6.0 L Albumin 3.1 L Assessment and Plan (1) Acute alcoholic hepatitis: Status: Acute (2) Alcoholic cirrhosis of liver: Status: Acute Assessment and Plan: ?? 56F presented with abdominal pain acute alcoholic hepatatis in setting of chronic alcoholic cirrhosis with varices. high protein diet, pain control transaminitis resolved continue aldactone, PPI, holding lasix Advanced diet as tolerated cholelithiasis with distended GB surgery appreciated, no evidence of acute cholecystitis hypomagnesemia replace and monitor alcohol dependence with withdrawal phenobarb, ciwa, care team appreciated pancytopenia due to cirrhosis difficulty ambulating plan for STR on discharge depression lexapro dvt prophylaxis - mechanical due to thrombocytopenia pending placement Quality Stroke Does the patient have a stroke diagnosis?: No VTE Prior VTE?: No VTE Risk Level:: Medical - moderate - high VTE Device Contraindication: N/A - Device Ordered VTE Drug Contraindication: Treatment Not Tolerated
--- NOTE | 2021-03-06 13:16 | PM.DS ---
DS: Providers Provider Date of Service: 03/07/21 Date of admission: 03/02/21 16:28 Date of discharge: 03/07/21 Primary care physician: NEVILLE Garrison Consults: 03/02/21 16:26 Consult to General Surgery Routine Consulting Provider: Edgardo Fink Reason for consultation: ? cholecytitis vs hepatitis 03/04/21 09:03 Consult to Care Team Routine Comment: Reason for consultation: etoh, homeless DS: Diagnosis Discharge Diagnosis (1) Acute alcoholic hepatitis: Status: Acute (2) Alcoholic cirrhosis of liver: Status: Acute (3) Cholelithiasis: Status: Acute (4) Hypomagnesemia: Status: Acute (5) Physical deconditioning: Status: Acute DS: Summary Hospital Course Hospital Course: admission note HPI 56F ETOH dependent with cirrhosis, homeless, presented with complaint of about 1 week fatigue and RUQ pain. pain is sharp, radiates to middle of abdomen, mild to moderate in intensity, not associated with food, worse with palpation, assoicated with diarrhea, nausea, no vomitting. symptoms worsened last couple days so she came to ED. in ED, CT showed cirrhotic liver, distended gallbladder with calculi but no evidence of acute cholecytitis. some fluid fulled distended loops of small bowel. labs significant for mag 1.4, tbili 1.8 (was 0.12 jan 2021). Hospital course The patient was admitted for acute alcoholic hepatitis and sitting of chronic alcohol cirrhosis as a result of alcohol abuse. Treated with high-protein diet, pain control as transaminitis improved. Received PPI, Aldactone as her diet advanced as tolerated. Noted to have cholelithiasis with distended gallbladder. Evaluated by surgery team who recommended no intervention as there is no evidence of acute cholecystitis. Found to have hypomagnesemia of 1.4. Received IV supplement and to continue with oral magnesium at time of discharge. Treated with phenobarbital protocol for alcohol withdrawal with good response. Evaluated by care team with an advise for total absence from alcohol. Seen by physical therapy team who recommended short-term rehab for the patient. anticipated length of stay at the SNF less than 30 days. Time Spent with Patient Time attestation: Total time spent providing and/or coordinating discharge services: Discharge coordination time: Greater than 30 minutes Quality: Stroke Does the patient have a stroke diagnosis?: No Physical Exam Vital Signs: Vital Signs: Last Vital Signs Temp 96.8 F 03/06/21 10:53 Pulse 65 03/06/21 10:53 Resp 19 03/06/21 10:53 BP 134/72 03/06/21 10:53 Pulse Ox 96 03/06/21 10:53 BMI result Body Mass Index 32.3 Const: Other: Constitutional : Alert, oriented, not in distress Neck : Normal inspection, Supple Cardiovascular : RRR, S1 S2, no lower extremity edema Respiratory : fair bilateral air entry, no crackles, wheezes or rhonchi Gastrointestinal: soft, lax, Normal bowel sounds, Non tender Skin : Warm, Dry, spider nevi eyes on her recent chest Neurological : Alert & oriented x3, No focal deficit DS: Data Data Completed and Pending Labs on day of discharge: Laboratory Results - last 24 hr 03/06/21 03/06/21 06:05 06:05 WBC 4.7 L RBC 4.24 Hgb 11.1 L Hct 35.3 L MCV 83.3 MCH 26.2 L MCHC 31.4 RDW 17.2 H Plt Count 100 L D MPV 11.4 Absolute Nucleated RBC 0.000 Nucleated RBC % (auto) 0.0 Sodium 141 Potassium 3.8 Chloride 105 Carbon Dioxide 29 Anion Gap 11 L BUN 7 L Creatinine 0.64 Estim Creat Clear Calc 83.0 Estimated GFR > 60 Fasting Glucose 98 Calcium 8.8 Magnesium 1.6 Total Bilirubin 0.9 Direct Bilirubin 0.4 AST 30 ALT 19 Alkaline Phosphatase 86 Total Protein 6.0 L Albumin 3.1 L Preliminary micro results at discharge 03/02/21 17:20 Blood Culture - Preliminary Blood - Venous No growth after 48 hours. 03/02/21 17:20 Blood Culture - Preliminary Blood - Venous No growth after 48 hours. Discharge Plan Discharge Patient Disposition: Xfer SNF Discharge Diagnosis: acute alcoholic hepatitis Alcohol withdrawal Referrals: Yahaira Dove FNP [Primary Care Provider] - 1 Week Discharge Medications: New magnesium oxide 400 mg (241.3 mg magnesium) Tablet 400 mg PO BIDPC 30 Days Qty: 60 RF: 0 Continued acetaminophen 325 mg tablet 325 mg PO BID PRN (Reason: Pain) RF: 0 naltrexone 50 mg tablet 1 tab PO DAILY RF: 0 spironolactone 100 mg tablet 1 tab PO DAILY RF: 0 nadolol 20 mg tablet 1 tab PO DAILY RF: 0 pantoprazole 40 mg tablet,delayed release (DR/EC) 1 tab PO BID RF: 0 folic acid 1 mg tablet 1 tab PO DAILY RF: 0 hydroxyzine HCl 25 mg tablet 1 tab PO QID PRN (Reason: Anxiety) RF: 0 furosemide 20 mg tablet 1 tab PO DAILY RF: 0 gabapentin 100 mg capsule 200 mg PO BID RF: 0 escitalopram oxalate 10 mg tablet 1 tab PO DAILY RF: 0 ferrous gluconate 324 mg (38 mg iron) tablet 324 mg PO BEDTIME RF: 0 Discharge Orders: Discharge Order (Routine); Ordered 03/07/21 Ordered By: Trudi [place] Diet: advance to usual diet Activity on Discharge: As tolerated Stand Alone Forms: Patient Portal Discharge page Care Plan Goals: Read below Health Concerns: Read below Plan of Treatment: Read below Assessment: you were admitted to the hospital for evaluation of alcohol withdrawal and liver injury. Treated with phenobarbital protocol with good response over the course of hospital stay. Found to have low magnesium level which was replaced with IV and oral medication. Evaluated by Physical therapy who recommended short-term rehab.
[2021-03-06 15:41] LABS: COVID-19 Test Negative (Negative)
[2021-03-06] MEDS: Ferrous Sulfate 324 MG TABLET.DR PO (20:22)
[2021-03-07] VITALS (9 sets, daily range): BP systolic 98–130; BP diastolic 53–59; PULSE 53–67; RESP 18–20; TEMP 36.5–37; O2SAT 95–97
[2021-03-07] MEDS: Omeprazole 20 MG CAPSULE.DR PO ×2 (05:33→16:46)
[2021-03-07] MEDS: Morphine Sulfate 2 MG/ML CARTRIDGE IVPUSH ×2 (05:33→10:26)
[2021-03-07] MEDS: Spironolactone 25 MG TABLET 100 MG PO (08:45)
[2021-03-07] MEDS: 0.9 % Sodium Chloride Flush 3 ML SYRINGE IVFLUSH (08:45)
[2021-03-07] MEDS: nadoloL 20 MG TABLET PO (08:48)
[2021-03-07] MEDS: Escitalopram Oxalate 10 MG TABLET PO (08:48)
[2021-03-07] MEDS: PHENobarbitaL 15 MG TABLET PO (08:48)
[2021-03-07] MEDS: Naltrexone HCl 50 MG TABLET PO (08:48)
[2021-03-07] MEDS: Gabapentin 100 MG CAPSULE 200 MG PO ×2 (08:49→20:38)
[2021-03-07] MEDS: Magnesium Oxide 400 MG TABLET PO ×2 (08:49→16:46)
[2021-03-07] MEDS: Folic Acid 1 MG TABLET PO (08:50)
[2021-03-07 11:32] LABS: Influenza A PCR NEGATIVE (Negative); Influenza B PCR NEGATIVE (Negative); Resp Syncy Virus RNA Qual PCR NEGATIVE (Negative); SARS COV2 PCR INHOUSE POSITIVE (Negative)
--- NOTE | 2021-03-07 11:48 | MHC.CM.PN ---
Patient has been medically cleared for dc to [facility]/SNF today. Patient will dc to [facility] today at 4PM, via [facility]. Last IMM addressed on 03/06/21. Patient is aware of and in agreement with the dc plan.
--- NOTE | 2021-03-07 12:52 | MHC.CM.PN ---
Patient tested (+) today for Covid. Patient's referrals have been updated with this information and we await bed acceptance. CM will follow. Scheduled dc to [facility] today at 4 has been canceled.
--- NOTE | 2021-03-07 13:34 | MHC.CM.PN ---
Patient has been accepted at [facility] (+). Patient will dc to [facility] today at 4 PM, via [facility].Patient is aware of and in agreement with the change in the dc plan.
[2021-03-07] MEDS: Ferrous Sulfate 324 MG TABLET.DR PO (20:38)
== END 2021-03-07 21:27 | disposition skilled nursing facility (03) | DRG 432 ==
LOC: HO.ED 16:04 → HO.EDOVER 16:34 → HO.IMC 03-05 19:19
PROVIDERS: Physician Assistant; Admitting Provider Internal Medicine; Emergency Provider Emergency Medicine Emergency Medical Services; PCP Nurse Practitioner Family; Visit Provider Student in an Organized Health Care Education/Training Program
DX: K70.10 Alcoholic hepatitis without ascites (principal); U07.1 COVID-19; F10.239 Alcohol dependence with withdrawal, unspecified; D61.818 Other pancytopenia; I85.10 Secondary esophageal varices without bleeding; K70.30 Alcoholic cirrhosis of liver without ascites; E83.42 Hypomagnesemia; K80.20 Calculus of gallbladder without cholecystitis without obstruction; F32.A Depression, unspecified; Z87.891 Personal history of nicotine dependence; Z59.01 Sheltered homelessness; Z88.0 Allergy status to penicillin; Z88.2 Allergy status to sulfonamides; Z79.899 Other long term (current) drug therapy
CPT/HCPCS: 0241U; 36415; 71045; 74177; 80048; 80076; 82077; 83605; 83690; 83735; 84484; 85025; 85027; 85610; 87040; 87635; 93005; 96361; 96365; 96366; 96372; 96375; 97116; 97162; 99285; 99291; J1885; J2270; J2405; J2560; J3475; Q9967

== ENCOUNTER 2021-05-20 21:44 | Emergency (ER) | payer OTHER, SELFPAY ==
[2021-05-20 21:53] VITALS: BP 148/63; PULSE 100; RESP 16; TEMP 36.8; O2SAT 96; BMI 38.1
--- NOTE | 2021-05-20 21:58 | ED.ALCOHOL ---
HPI - Alcohol General Chief Complaint: ETOH/Substance Use Stated Complaint: back pain/etoh Time Seen by Provider: 05/20/21 21:54 Source: patient Mode of arrival: EMS History of Present Illness HPI narrative: Patient alcoholic been drinking heavy for long time did not eat much comes in for whole body aches and she does not have ID to go back to her hotel. No vomiting no diarrhea no abdominal pain no fever no chills Related Data Home Medications Medication Instructions Recorded Confirmed acetaminophen 325 mg tablet 325 mg PO BID PRN 03/02/21 03/02/21 escitalopram oxalate 10 mg tablet 1 tab PO DAILY 03/02/21 03/02/21 ferrous gluconate 324 mg (38 mg 324 mg PO BEDTIME 03/02/21 03/02/21 iron) tablet folic acid 1 mg tablet 1 tab PO DAILY 03/02/21 03/02/21 furosemide 20 mg tablet 1 tab PO DAILY 03/02/21 03/02/21 gabapentin 100 mg capsule 200 mg PO BID 03/02/21 03/02/21 hydroxyzine HCl 25 mg tablet 1 tab PO QID PRN 03/02/21 03/02/21 nadolol 20 mg tablet 1 tab PO DAILY 03/02/21 03/02/21 naltrexone 50 mg tablet 1 tab PO DAILY 03/02/21 03/02/21 pantoprazole 40 mg tablet,delayed 1 tab PO BID 03/02/21 03/02/21 release spironolactone 100 mg tablet 1 tab PO DAILY 03/02/21 03/02/21 Previous Rx's Medication Instructions Recorded magnesium oxide 400 mg (241.3 mg 400 mg PO BIDPC 30 Days #60 tab 03/06/21 magnesium) tablet Allergies Allergy/AdvReac Type Severity Reaction Status Date / Time levofloxacin [From Levaquin] Allergy Anaphylaxis Verified 03/02/21 10:48 Penicillins Allergy Anaphylaxis Verified 03/02/21 10:48 Sulfa (Sulfonamide Allergy Anaphylaxis Verified 03/02/21 10:48 Antibiotics) Review of Systems Review of Systems: Yes all other systems are reviewed and are negative PMFSH Past Medical History Medical History Alcoholic cirrhosis of liver Family History Family History Mother Pancreatic cancer Social History Social History Household Members: None Housing: Homeless Do you presently have visiting nurse or other home services: No Alcohol intake: current Patient Tobacco Use Status: Former Tobacco user Substance Use Type: Marijuana Advance Directives: No Advance Directives Information Provided: No Patient : No service: No Current occupational status: disabled Physical Exam ED Vital Signs: Vital Signs - 24 hr 05/20/21 21:53 Temperature 98.3 F Pulse Rate 100 Respiratory Rate 16 Blood Pressure 148/63 H Pulse Oximetry 96 BMI result Body Mass Index 38.1 Appearance: Alert. Oriented X3. No acute distress. ETOH++ Eyes: PERRLA, no icterus or pallor ENT: Pharynx normal. Oral Mucosa moist Neck: Normal inspection. Neck supple. CVS: Normal heart rate and rhythm. Pulses normal. Respiratory: No respiratory distress. Equal air entry bilateral, no wheezing/rales/rhonchi Abdomen: Soft and nontender. Bowel sounds are present, no mass palpable, no CVA tenderness Skin: Skin warm and dry. Normal skin color. Normal skin turgor. Extremities: No lower extremity edema. No calf tenderness Neuro: Oriented X 3. No motor deficit. No sensory deficit.No cerebellar signs , cranial nerves II-XII intact MDM - Alcohol MDM Narrative Medical decision making narrative: Patient alcoholic lab workup showed elevated sodium level of 151 metabolic alkalosis patient refuse IV fluids says that she will take p.o. fluids will keep her in the ER today she gets over and give her p.o. fluids Lab Data Attestation: I reviewed the patient's lab results. Result diagrams: 05/20/21 22:28 05/20/21 22:28 Labs: Lab Results 05/20/21 05/20/21 05/20/21 Range/Units 22:28 22:28 22:28 WBC 6.5 (4.8-10.8) X10*3/uL RBC 3.96 L (4.20-5.50) X10*6/uL Hgb 10.7 L (12.0-16.0) g/dl Hct 34.1 L (37.0-47.0) % MCV 86.1 (80.0-98.0) fL MCH 27.0 (27.0-33.0) pg MCHC 31.4 (31.0-35.0) g/dl RDW 15.9 (11.0-16.0) % Plt Count 183 D (160-400) X10*3/uL MPV 10.9 (9.4-12.3) fL Immature Gran % (Auto) 0.2 (0.0-0.4) % Neut % (Auto) 47.8 (45-73) % Lymph % (Auto) 32.6 (20-40) % [place] % (Auto) 13.2 H (2-11) % Eos % (Auto) 4.3 H (0-4) % Baso % (Auto) 1.9 (0-2) % Lymph # (Auto) 2.1 (1.2-4.9) X10*3/uL [place] # (Auto) 0.9 (0.1-1.2) X10*3/uL Eos # (Auto) 0.3 (0.0-0.4) X10*3/uL Baso # (Auto) 0.1 (0.0-0.2) X10*3/uL Abs Immat Gran (auto) 0.01 (0.00-0.03) X10*3/uL Absolute Neuts (auto) 3.1 (2.0-8.3) x10*3/uL Absolute Nucleated RBC 0.000 (0.0-0.012) X10*3/uL Nucleated RBC % (auto) 0.0 (0.0-0.2) /100WBC Sodium 151 H (135-145) mmol/L Potassium 3.8 (3.3-5.1) mmol/L Chloride 112 H (96-108) mmol/L Carbon Dioxide 30 H (22-29) mmol/L Anion Gap 12 (12-20) BUN 12 D (9-16) mg/dL Creatinine 0.70 (0.5-1.4) mg/dL Estim Creat Clear Calc 83.2 Estimated GFR > 60 Random Glucose 114 (60-115) mg/dL Calcium 8.4 (8.4-10.2) mg/dL Magnesium 1.6 (1.6-2.6) mg/dL Total Bilirubin 0.5 (0.0-1.0) mg/dL AST 35 H (5-31) U/L ALT 18 (0-31) U/L Alkaline Phosphatase 85 (39-117) U/L Total Protein 6.9 (6.5-8.0) g/dL Albumin 3.7 (3.5-5.0) g/dL Ethyl Alcohol 301 H* mg/dL COVID-19 (SIMONE) (Negative) COVID-19 Clin Com 05/20/21 Range/Units 23:58 WBC (4.8-10.8) X10*3/uL RBC (4.20-5.50) X10*6/uL Hgb (12.0-16.0) g/dl Hct (37.0-47.0) % MCV (80.0-98.0) fL MCH (27.0-33.0) pg MCHC (31.0-35.0) g/dl RDW (11.0-16.0) % Plt Count (160-400) X10*3/uL MPV (9.4-12.3) fL Immature Gran % (Auto) (0.0-0.4) % Neut % (Auto) (45-73) % Lymph % (Auto) (20-40) % [place] % (Auto) (2-11) % Eos % (Auto) (0-4) % Baso % (Auto) (0-2) % Lymph # (Auto) (1.2-4.9) X10*3/uL [place] # (Auto) (0.1-1.2) X10*3/uL Eos # (Auto) (0.0-0.4) X10*3/uL Baso # (Auto) (0.0-0.2) X10*3/uL Abs Immat Gran (auto) (0.00-0.03) X10*3/uL Absolute Neuts (auto) (2.0-8.3) x10*3/uL Absolute Nucleated RBC (0.0-0.012) X10*3/uL Nucleated RBC % (auto) (0.0-0.2) /100WBC Sodium (135-145) mmol/L Potassium (3.3-5.1) mmol/L Chloride (96-108) mmol/L Carbon Dioxide (22-29) mmol/L Anion Gap (12-20) BUN (9-16) mg/dL Creatinine (0.5-1.4) mg/dL Estim Creat Clear Calc Estimated GFR Random Glucose (60-115) mg/dL Calcium (8.4-10.2) mg/dL Magnesium (1.6-2.6) mg/dL Total Bilirubin (0.0-1.0) mg/dL AST (5-31) U/L ALT (0-31) U/L Alkaline Phosphatase (39-117) U/L Total Protein (6.5-8.0) g/dL Albumin (3.5-5.0) g/dL Ethyl Alcohol mg/dL COVID-19 (SIMONE) Negative (Negative) COVID-19 Clin Com See Note Discharge Plan Discharge Clinical Impression: Alcoholic intoxication Prescriptions: No Action acetaminophen 325 mg tablet 325 mg PO BID PRN (Reason: Pain) 0RF naltrexone 50 mg tablet 1 tab PO DAILY 0RF spironolactone 100 mg tablet 1 tab PO DAILY 0RF nadolol 20 mg tablet 1 tab PO DAILY 0RF pantoprazole 40 mg tablet,delayed release (DR/EC) 1 tab PO BID 0RF folic acid 1 mg tablet 1 tab PO DAILY 0RF hydroxyzine HCl 25 mg tablet 1 tab PO QID PRN (Reason: Anxiety) 0RF furosemide 20 mg tablet 1 tab PO DAILY 0RF gabapentin 100 mg capsule 200 mg PO BID 0RF escitalopram oxalate 10 mg tablet 1 tab PO DAILY 0RF ferrous gluconate 324 mg (38 mg iron) tablet 324 mg PO BEDTIME 0RF magnesium oxide 400 mg (241.3 mg magnesium) Tablet 400 mg PO BIDPC 30 Days Qty: 60 0RF
[2021-05-20 22:32] LABS: MANUAL DIFF FLAG NO
[2021-05-20 22:33] LABS: Basophils Absolute Auto 0.1 X10*3/uL (0.0-0.2); Basophils Percent Auto 1.9 % (0-2); Eosinophils Absolute Auto 0.3 X10*3/uL (0.0-0.4); Eosinophils Percent Auto 4.3 % (0-4); Hematocrit 34.1 % (37.0-47.0); Hemoglobin 10.7 g/dl (12.0-16.0); Imm Gran Abs Auto 0.01 X10*3/uL (0.00-0.03); Imm Gran Pct Auto 0.2 % (0.0-0.4); Lymphocytes Absolute Auto 2.1 X10*3/uL (1.2-4.9); Lymphocytes Percent Auto 32.6 % (20-40); Mean Corpuscular HGB Conc 31.4 g/dl (31.0-35.0); Mean Corpuscular Volume 86.1 fL (80.0-98.0); Mean Platelet Volume 10.9 fL (9.4-12.3); Monocytes Absolute Auto 0.9 X10*3/uL (0.1-1.2); Monocytes Percent Auto 13.2 % (2-11); Neutrophils Absolute Auto 3.1 x10*3/uL (2.0-8.3); Neutrophils Percent Auto 47.8 % (45-73); Platelet Count 183 X10*3/uL (160-400); Red Blood Count 3.96 X10*6/uL (4.20-5.50); Red Cell Distribution Width 15.9 % (11.0-16.0); White Blood Count 6.5 X10*3/uL (4.8-10.8)
[2021-05-20 22:56] LABS: Ethanol 301 mg/dL
[2021-05-20 23:07] LABS: Alanine Aminotransferase 18 U/L (0-31); Albumin Level 3.7 g/dL (3.5-5.0); Alkaline Phosphatase 85 U/L (39-117); Anion Gap 12 (12-20); Aspartate Amino Transferase 35 U/L (5-31); Bilirubin Total 0.5 mg/dL (0.0-1.0); Blood Urea Nitrogen 12 mg/dL (9-16); Calcium 8.4 mg/dL (8.4-10.2); Carbon Dioxide 30 mmol/L (22-29); Chloride 112 mmol/L (96-108); Creatinine Clr Calc Pharmacy 83.2; Estimated Glomerular Filt Rate > 60; Glucose Random 114 mg/dL (60-115); Magnesium 1.6 mg/dL (1.6-2.6); Potassium 3.8 mmol/L (3.3-5.1); Total Protein 6.9 g/dL (6.5-8.0)
[2021-05-20 23:13] LABS: Sodium 151 mmol/L (135-145)
--- NOTE | 2021-05-20 23:20 | PC.NURSE ---
PATIENT SHOUTING AND SCREAMING OUT. YELLING AT NURSE THAT PATIENT IS NOT INTOXICATED INFORMED OF THE ETOH LEVEL. PATIENT STATING SHE WAS GOING TO WALK OUT AND WANTS AN AMA FORM. 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 TALKING WITH GREETING CARD MAKER TO MOVE PATIENT TO A QUIETER LESS STIMULATING AREA.
[2021-05-21 00:24] LABS: COVID-19 Test Negative (Negative)
[2021-05-21] MEDS: LORazepam 1 MG TABLET 2 MG PO (01:08)
--- NOTE | 2021-05-21 02:25 | PC.NURSE ---
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
[2021-05-21 05:42] VITALS: BP 117/54; PULSE 87; RESP 18; TEMP 36.8; O2SAT 95
--- NOTE | 2021-05-21 07:08 | PC.NURSE ---
patient appears to be relaxing/resting at present respirations are even and unlabored, patient appears in no distress
== END 2021-05-21 08:16 | disposition home or self-care (01) ==
PROVIDERS: Emergency Provider Internal Medicine
DX: F10.220 Alcohol dependence with intoxication, uncomplicated (principal); Y90.8 Blood alcohol level of 240 mg/100 ml or more; Z20.822 Contact with and (suspected) exposure to COVID-19; K70.30 Alcoholic cirrhosis of liver without ascites
CPT/HCPCS: 36415; 80053; 82077; 83735; 85025; 87635; 96360; 99283; 99284

== ENCOUNTER 2021-10-17 15:41 | Inpatient (IN) | payer OTHER, SELFPAY ==
--- NOTE | ~2021-10-17 | CT_ITS ---
EXAMINATION: CT ABDOMEN AND PELVIS WITHOUT CONTRAST CLINICAL INFORMATION: Abdominal pain. Bloody diarrhea. COMPARISON: 03/02/2021 TECHNIQUE: Multidetector volumetric imaging was performed from the superior aspect of the liver through the pubic symphysis. Sagittal and coronal reformatted images were obtained on the technologist's workstation. This CT examination was performed using dose optimization techniques as appropriate, variously including the following: *Automated exposure control *Adjustment of mA and/or kV according to patient size (this includes techniques or standardized protocols for targeted exams where dose is matched to indication/reason for exam; i.e. extremities or head) *Use of iterative reconstruction technique DLP: 778 mGy-cm FINDINGS: LUNG BASES: The visualized lung bases are unremarkable. LIVER, GALLBLADDER, AND BILIARY TREE: Normal size liver with nodular Contour. Diffuse low-attenuation. There are a few hyperdense lesions, mostly in the left lobe of the liver. These are faintly visualized on prior. Numerous stones in the gallbladder lumen. No inflammatory changes. PANCREAS: Unremarkable. SPLEEN: Unremarkable. ADRENAL GLANDS: Unremarkable. KIDNEYS AND URETERS: The kidneys are normal in size, shape, and attenuation. No hydronephrosis, hydroureter, or calculi seen. No perinephric stranding. BLADDER: Unremarkable. GASTROINTESTINAL TRACT: The stomach is decompressed. Normal caliber small bowel. No obstruction. No colonic wall thickening or inflammation. ABDOMINAL WALL: No significant hernia is appreciated. LYMPH NODES: Normal. VASCULAR: Normal caliber aorta with mild atherosclerotic calcification. Upper abdominal varices. PELVIC VISCERA: The uterus and adnexa are unremarkable. OSSEOUS STRUCTURES: No acute or suspicious osseous abnormality. L1 vertebral body compression deformity is chronic. Chronic height loss at the T9 level and the L3 level. CT/CT abdomen pelvis wo con IMPRESSION: Cirrhotic liver morphology. Evidence of portal hypertension with prominent varices. Nonspecific hyperdense lesions in the liver. Fleischner guidelines were followed.
[2021-10-17 16:04] VITALS: BP 147/96; PULSE 89; RESP 19; TEMP 37; O2SAT 95; BMI 31.2
[2021-10-17 17:01] LABS: Red Cell Distribution Width 20.3 % (11.0-16.0)
[2021-10-17 17:03] LABS: Hematocrit 34.4 % (37.0-47.0); Hemoglobin 10.5 g/dl (12.0-16.0); Mean Corpuscular HGB Conc 30.5 g/dl (31.0-35.0); Mean Corpuscular Hemoglobin 24.1 pg (27.0-33.0); Mean Corpuscular Volume 78.9 fL (80.0-98.0); Mean Platelet Volume 10.4 fL (9.4-12.3); Red Blood Count 4.36 X10*6/uL (4.20-5.50)
[2021-10-17 17:07] LABS: PLT ABN DIST 1; Platelet Count 85 X10*3/uL (160-400)
[2021-10-17 17:33] LABS: Anion Gap 18 (12-20); Blood Urea Nitrogen 4 mg/dL (9-16); Calcium 7.7 mg/dL (8.4-10.2); Carbon Dioxide 25 mmol/L (22-29); Chloride 101 mmol/L (96-108); Creatinine Clr Calc Pharmacy 83.8; Estimated Glomerular Filt Rate > 60; Ethanol 285 mg/dL; Glucose Random 139 mg/dL (60-115); Potassium 3.2 mmol/L (3.3-5.1); Sodium 141 mmol/L (135-145)
[2021-10-18] VITALS (7 sets, daily range): BP systolic 119–151; BP diastolic 49–69; PULSE 52–88; RESP 15–18; TEMP 36.5–37.1; O2SAT 90–99
--- NOTE | 2021-10-18 00:50 | ED_ITS ---
HPI - Abdominal Pain General Chief Complaint: Abdominal Pain Stated Complaint: vomiting diarrhea Time Seen by Provider: 10/18/21 00:38 Source: patient and family Mode of arrival: ambulatory Limitations: no limitations History of Present Illness HPI narrative: 56-year-old female ETOH dependent with complicated cirrhosis, homeless currently live in [facility], patient presented for a few days of diffuse abdominal pain and nausea with vomiting with a bloody diarrhea with mucus. Patient still able to drink alcohol despite the vomiting, patient now is homeless not sure if she ate contaminated foods, but no sick contacts, no recent travel, no recent use of antibiotic. Known to have alcoholic cirrhosis. Patient never had abdominal surgery in the past. Related Data Home Medications Medication Instructions Recorded Confirmed acetaminophen 325 mg tablet 325 mg PO BID PRN Pain 03/02/21 03/02/21 escitalopram oxalate 10 mg tablet 1 tab PO DAILY 03/02/21 03/02/21 ferrous gluconate 324 mg (38 mg 324 mg PO BEDTIME 03/02/21 03/02/21 iron) tablet folic acid 1 mg tablet 1 tab PO DAILY 03/02/21 03/02/21 furosemide 20 mg tablet 1 tab PO DAILY 03/02/21 03/02/21 gabapentin 100 mg capsule 200 mg PO BID 03/02/21 03/02/21 hydroxyzine HCl 25 mg tablet 1 tab PO QID PRN Anxiety 03/02/21 03/02/21 nadolol 20 mg tablet 1 tab PO DAILY 03/02/21 03/02/21 naltrexone 50 mg tablet 1 tab PO DAILY 03/02/21 03/02/21 pantoprazole 40 mg tablet,delayed 1 tab PO BID 03/02/21 03/02/21 release spironolactone 100 mg tablet 1 tab PO DAILY 03/02/21 03/02/21 Previous Rx's Medication Instructions Recorded magnesium oxide 400 mg (241.3 mg 400 mg PO BIDPC 30 days #60 tabs 03/06/21 magnesium) tablet Allergies Allergy/AdvReac Type Severity Reaction Status Date / Time levofloxacin [From Levaquin] Allergy Anaphylaxis Verified 03/02/21 10:48 Penicillins Allergy Anaphylaxis Verified 03/02/21 10:48 Sulfa (Sulfonamide Allergy Anaphylaxis Verified 03/02/21 10:48 Antibiotics) Review of Systems Review of Systems All other systems are reviewed and are negative Constitutional: Reports as per HPI and Reports no additional constitutional complaints Eyes: Reports as per HPI and Reports no additional eye complaints Reports system reviewed and no additional complaints, except as documented Cardiovascular: Reports as per HPI and Reports no additional cardiovascular complaints Respiratory: Reports as per HPI and Reports no additional respiratory complaints Gastrointestinal: Reports as per HPI and Reports no additional gastrointestinal complaints Genitourinary: Reports no additional female genitourinary complaints Musculoskeletal: Reports no additional musculoskeletal complaints Skin/Breast: Reports system reviewed and no additional complaints, except as docu Psychiatric: Reports no additional psychiatric complaints Endocrine: Reports no additional endocrine complaints Hematologic/Lymphatic: Reports no additional hematologic/lymphatic complaints Allergic/Immunologic: Reports no additional allergic/immunologic complaints Reports system reviewed and no additional complaints, except as documented and Reports Abnormal speech present [facility] Past Medical History Medical History Alcoholic cirrhosis of liver Family History Family History Mother Pancreatic cancer Social History Social History Household Members: None Housing: Homeless Do you presently have visiting nurse or other home services: No Alcohol intake: current Patient Tobacco Use Status: Former Tobacco user Substance Use Type: Marijuana Advance Directives: No Advance Directives Information Provided: No service: No Current occupational status: disabled Physical Exam ED Vital Signs: Vital Signs - 24 hr 10/17/21 16:04 10/18/21 00:00 10/18/21 02:00 Temperature 98.6 F Pulse Rate 89 77 77 Respiratory Rate 19 18 17 Blood Pressure 147/96 H 145/57 H 119/49 L Pulse Oximetry 95 98 97 Oxygen Delivery Method Room Air Room Air Room Air BMI result Body Mass Index 31.2 Vital signs have been reviewed as appeared to be correct. Blood pressure normal. Heart rate normal. Respiration rate normal. Temperature normal. Oxygen saturation normal. Appearance: Alert. Oriented X3. No acute distress. Head: Normal external exam. Normocephalic. Atraumatic. No Peres signs noted. No raccoon eyes noted Eyes: PERRLA. EOMI. Conjunctiva and sclera normal. Eyelids normal. ENT: TM's Normal. Pharynx normal. Uvula midline. Moist mucous membranes. No trismus noted. No drooling noted. No muffled voice noted. Neck: Normal inspection. Neck supple. FROM. No adenopathy. Thyroid Normal. No meningeal signs. No neck mass noted. CVS: Normal heart rate and rhythm. Heart sound normal. No murmurs noted. Pulses normal throughout. Respiratory: No respiratory distress. Painless inspiration. Breath sounds normal. No wheezes/rales/rhonchi noted. Chest nontender. No accessory muscle usage noted or decreased air movement noted. Abdomen: Soft and nontender. Bowel sounds normal in all 4 quadrants. No distention noted. No organomegaly noted. No visible injury noted. Rectal exam: Stool mixed with bright red mucus. No external or internal hemorrhoids visualized or palpated. Back: No CVA tenderness. Full range of motion noted. Skin: Skin warm and dry. Normal skin color. Normal skin turgor. No rashes/lesions/lacerations noted. Extremities: No lower extremity edema. Extremities exhibit normal range of motion. Extremities nontender. Neuro: Oriented X 3. Cranial nerve exam: II-XII are grossly intact No motor deficit. No sensory deficit. Reflexes normal. Course Course Course Narrative: 56-year-old female chronic alcohol abuser with known alcoholic liver cirrhosis came in for nausea, vomiting, bloody diarrhea and abdominal pain likely gastroenteritis with a negative CT of the abdomen and pelvis. Persistent vomiting for the past 3 days causing hypokalemia and hypomagnesemia we will replete intravenously. Gentle hydration, ppi, vomiting control with antiemetic and admit. Reevaluation(s) Reevaluation #1: Patient is a daily alcohol abuser, not drinking enough for the last 2-3 days due to her symptoms and also been in the ED, patient now is becoming more tremulous and diaphoretic will consider phenobarb for alcohol withdrawal MDM - Abdominal Pain Medical Records Attestation: I reviewed the patient's medical records. Lab Data Attestation: I reviewed the patient's lab results. Result diagrams: 10/17/21 16:48 10/17/21 16:48 Labs: Lab Results 10/17/21 10/17/21 10/18/21 Range/Units 16:48 16:48 01:30 WBC 6.0 (4.8-10.8) X10*3/uL RBC 4.36 (4.20-5.50) X10*6/uL Hgb 10.5 L (12.0-16.0) g/dl Hct 34.4 L (37.0-47.0) % MCV 78.9 L (80.0-98.0) fL MCH 24.1 L (27.0-33.0) pg MCHC 30.5 L (31.0-35.0) g/dl RDW 20.3 H (11.0-16.0) % Plt Count 85 L D (160-400) X10*3/uL MPV 10.4 (9.4-12.3) fL Absolute Nucleated RBC 0.000 (0.0-0.012) X10*3/uL Nucleated RBC % (auto) 0.0 (0.0-0.2) /100WBC Sodium 141 (135-145) mmol/L Potassium 3.2 L (3.3-5.1) mmol/L Chloride 101 (96-108) mmol/L Carbon Dioxide 25 (22-29) mmol/L Anion Gap 18 (12-20) BUN 4 L D (9-16) mg/dL Creatinine 0.65 (0.5-1.4) mg/dL Estim Creat Clear Calc 83.8 Estimated GFR > 60 Random Glucose 139 H (60-115) mg/dL Calcium 7.7 L D (8.4-10.2) mg/dL Magnesium 1.3 L* (1.6-2.6) mg/dL Total Bilirubin 1.9 H (0.0-1.0) mg/dL Direct Bilirubin 1.1 H (0.0-0.5) mg/dL AST 117 H (5-31) U/L ALT 28 (0-31) U/L Alkaline Phosphatase 105 D (39-117) U/L Total Protein 6.6 (6.5-8.0) g/dL Albumin 3.4 L (3.5-5.0) g/dL Lipase 34 (8-78) U/L Stool Occult Blood POSITIVE (NEGATIVE) Ethyl Alcohol 285 mg/dL Imaging Data CT scan - abdomen: Attestation: I personally reviewed and interpreted this imaging study as follows: Radiologist's impression: Cirrhotic liver morphology. Evidence of portal hypertension with prominent varices. Nonspecific hyperdense lesions in the liver. ? ECG Data Attestation: I personally reviewed and interpreted this ECG as follows: Interpretation: Normal sinus rhythm at 72 beats per minute, prolongation of QT which is unchanged from previous EKG, no ST-T changes. Critical Care Time Critical Care Time Critical Care Time: Yes Total Critical Care Time: 60 Attestation: I spent 60 minutes providing critical care service to the patient, this including time spent at the bedside to evaluate the patient, reassess the patient, monitoring vital signs, review labs, and radiographic studies, counseling the patient/family, discussing the case with consultants, disposition the patient. Discharge Plan Discharge Clinical Impression: Hypomagnesemia, Gastroenteritis, Acute hypokalemia, Rectal bleed Patient Disposition: Admitted As Inpatient
[2021-10-18] MEDS: Magnesium Hydrox/Alum Hydrox 30 ML ORAL.SUSP PO (00:58)
[2021-10-18] MEDS: ondansetron HCL 4 MG/2 ML VIAL IVPUSH (00:58)
[2021-10-18] MEDS: Famotidine 20 MG TABLET PO (00:58)
[2021-10-18] MEDS: 0.9 % Sodium Chloride 1,000 ML 999 ML IV (00:58)
[2021-10-18] MEDS: Potassium Chloride/H20 10 MEQ/100 ML PIGGYBACK 100 MEQ IV ×5 (00:58→14:22)
[2021-10-18 01:27] LABS: Alanine Aminotransferase 28 U/L (0-31); Albumin Level 3.4 g/dL (3.5-5.0); Alkaline Phosphatase 105 U/L (39-117); Aspartate Amino Transferase 117 U/L (5-31); Bilirubin Direct 1.1 mg/dL (0.0-0.5); Bilirubin Total 1.9 mg/dL (0.0-1.0); Lipase 34 U/L (8-78); Magnesium 1.3 mg/dL (1.6-2.6); Total Protein 6.6 g/dL (6.5-8.0)
[2021-10-18 01:36] LABS: OBS Int Ctl Valid YES; OBS1 POSITIVE (NEGATIVE)
[2021-10-18] MEDS: Magnesium Sulfate/H2O 2 GM/50 ML PIGGYBACK IV (02:04)
--- NOTE | 2021-10-18 02:51 | ECG_ITS ---
Test Reason : ABDOMINAL PAIN Blood Pressure : / mmHG Vent. Rate : 072 BPM Atrial Rate : 072 BPM P-R Int : 164 ms QRS Dur : 078 ms QT Int : 440 ms P-R-T Axes : 060 022 066 degrees QTc Int : 481 ms Artifact in tracing Normal sinus rhythm Likely normal EKG When compared with ECG of 02-MAR-2021 11:57, No significant changes seen Referred By: Valentin Abad Electronically Signed By:KIRILL PUTNAM
--- NOTE | 2021-10-18 04:21 | PC.NURSE ---
pt is tremulous and diaphoretic, to note pt daily drinker with hx of withdrawal seizures, MD aware.
[2021-10-18 04:39] LABS: COVID-19 Test Negative (Negative)
--- NOTE | 2021-10-18 05:37 | PM.IMHP ---
History of Present Illness Date of Service: 10/18/21 Chief Complaint: GI bleed This is a 56-year-old female past medical history and current alcohol abuse, liver cirrhosis, presents to the hospital with complaints of diarrhea as well as bloody bowel movements and pain. Patient reports that her symptoms have been on and off for the past 4-5 days, she has had multiple episodes of bloody vomiting as well as bright red blood per rectum. She reports right upper quadrant discomfort but does not call it pain. Reports no fever or chills, no jaundice, no chest pain, no shortness of breath, no new cough, no sputum production, no urinary symptoms and no lower extremity Patient does report to have a history of esophageal varices. Her labs are significant for WBC count 6.0, hemoglobin of 10.5, hematocrit 34.4, potassium 3.2, magnesium of 1.3, bili of 1.9, alcohol level of 285. Patient reports that her last drink was the day prior as she was starting to withdrawal. Was found to be in withdrawals as well so that she is given phenobarb, start on pantoprazole IV and will be admitted for further management Review of Systems Review of Systems: Yes all other systems are reviewed and are negative [facility] Medical History (Updated 10/18/21 @ 05:45 by Cordell Jones MD) Alcohol abuse with withdrawal Alcoholic cirrhosis of liver Family History Mother Pancreatic cancer Surgical History (Updated 10/18/21 @ 05:45 by Cordell Jones MD) H/O foot surgery Social History Household Members: None Housing: Homeless Do you presently have visiting nurse or other home services: No Alcohol intake: current Patient Tobacco Use Status: Former Tobacco user Substance Use Type: Marijuana Advance Directives: No Advance Directives Information Provided: No service: No Current occupational status: disabled Meds Allergies Allergy/AdvReac Type Severity Reaction Status Date / Time levofloxacin [From Levaquin] Allergy Anaphylaxis Verified 03/02/21 10:48 Penicillins Allergy Anaphylaxis Verified 03/02/21 10:48 Sulfa (Sulfonamide Allergy Anaphylaxis Verified 03/02/21 10:48 Antibiotics) Active Medications: Current Medications Acetaminophen (Acetaminophen 325 Mg Tablet) 650 mg PO Q6H PRN PRN Reason: Pain, Mild (Pain Scale 1-3) Docusate Sodium (Docusate Sodium 100 Mg Capsule) 100 mg PO DAILY PRN PRN Reason: Constipation Folic Acid (Folic Acid 1 Mg Tablet) 1 mg PO DAILY SANDRA Ondansetron HCl (Ondansetron Hcl 4 Mg/2 Ml Vial) 4 mg IVPUSH Q8H PRN PRN Reason: Nausea and Vomiting Pharmacy Consult (Consult Rx Etoh Phenob Po Only) 1 each MISCELLANE ONCE PRN; Protocol PRN Reason: Consult order Phenobarbital 100 mg/Phenobarbital 30 mg/Phenobarbital 7.5 mg 137.5 mg PO Q3H SANDRA Stop: 10/18/21 11:01 Sodium Chloride (0.9 % Sodium Chloride Flush 3 Ml Syringe) 3 ml IVFLUSH QSHIFT SANDRA Thiamine HCl (Thiamine Hcl 100 Mg Tablet) 100 mg PO DAILY COUNT INCLUDES THE [facility] Home Medications Medication Instructions Recorded Confirmed Last Taken Type acetaminophen 325 mg tablet 325 mg PO BID PRN Pain 03/02/21 03/02/21 Unknown History escitalopram oxalate 10 mg tablet 1 tab PO DAILY 03/02/21 03/02/21 Unknown History ferrous gluconate 324 mg (38 mg 324 mg PO BEDTIME 03/02/21 03/02/21 Unknown History iron) tablet folic acid 1 mg tablet 1 tab PO DAILY 03/02/21 03/02/21 Unknown History furosemide 20 mg tablet 1 tab PO DAILY 03/02/21 03/02/21 Unknown History gabapentin 100 mg capsule 200 mg PO BID 03/02/21 03/02/21 Unknown History hydroxyzine HCl 25 mg tablet 1 tab PO QID PRN Anxiety 03/02/21 03/02/21 Unknown History nadolol 20 mg tablet 1 tab PO DAILY 03/02/21 03/02/21 Unknown History naltrexone 50 mg tablet 1 tab PO DAILY 03/02/21 03/02/21 Unknown History pantoprazole 40 mg tablet,delayed 1 tab PO BID 03/02/21 03/02/21 Unknown History release spironolactone 100 mg tablet 1 tab PO DAILY 03/02/21 03/02/21 Unknown History Physical Exam Vital Signs and Narrative: Vital Signs: Last Vital Signs Temp 98.7 F 10/18/21 05:08 Pulse 88 10/18/21 05:08 Resp 16 10/18/21 05:08 BP 136/60 10/18/21 05:08 Pulse Ox 95 10/18/21 05:08 O2 Del Method 10/18/21 05:08 O2 Flow Rate 2 10/18/21 05:08 BMI result Body Mass Index 31.2 Const: General: cooperative and no acute distress Orientation/consciousness: patient oriented x3 Eyes: General: appearance normal, both eyes and all related structures Resp: Effort & Inspection: normal respiratory effort Auscultation: clear to auscultation bilaterally Cardio: Rate: regular rate Rhythm: regular rhythm GI: Other: Slightly tender to palpation specially in the right upper quadrant to right lower quadrant, no rebound or guarding Palpation (GI): Soft to palpation Auscultation: normal bowel sounds Skin: General skin exam: no rashes or lesions noted Neuro: General: patient oriented x3 Cognition (Neuro): normal cognition Extrem: General: Yes normal to inspection and Yes no pedal edema Results Labs CBC and Chem 7: 10/17/21 16:48 10/17/21 16:48 Labs: Laboratory Results - last 24 hr 10/17/21 10/17/21 10/18/21 16:48 16:48 01:30 MCV 78.9 L MCH 24.1 L MCHC 30.5 L RDW 20.3 H Plt Count 85 L D MPV 10.4 Absolute Nucleated RBC 0.000 Nucleated RBC % (auto) 0.0 Anion Gap 18 Estim Creat Clear Calc 83.8 Estimated GFR > 60 Random Glucose 139 H Calcium 7.7 L D Magnesium 1.3 L* Total Bilirubin 1.9 H Direct Bilirubin 1.1 H AST 117 H ALT 28 Alkaline Phosphatase 105 D Total Protein 6.6 Albumin 3.4 L Lipase 34 Stool Occult Blood POSITIVE Ethyl Alcohol 285 COVID-19 (SIMONE) COVID-19 Clin Com 10/18/21 04:15 MCV MCH MCHC RDW Plt Count MPV Absolute Nucleated RBC Nucleated RBC % (auto) Anion Gap Estim Creat Clear Calc Estimated GFR Random Glucose Calcium Magnesium Total Bilirubin Direct Bilirubin AST ALT Alkaline Phosphatase Total Protein Albumin Lipase Stool Occult Blood Ethyl Alcohol COVID-19 (SIMONE) Negative COVID-19 Clin Com See Note Imaging Radiologist's Impressions: Impressions Abdomen/Pelvis CT 10/18/21 02:00 IMPRESSION: Cirrhotic liver morphology. Evidence of portal hypertension with prominent varices. Nonspecific hyperdense lesions in the liver. Fleischner guidelines were followed. Assessment and Plan (1) Hematemesis: Status: Acute (2) Alcohol abuse with withdrawal: Status: Acute (3) Acute hypokalemia: Status: Acute (4) Hypomagnesemia: Status: Acute (5) Rectal bleed: Status: Acute Plan This is a 48-year-old female past medical history of alcohol abuse as well as alcohol liver cirrhosis with history of esophageal varices presents to the hospital with hematemesis and bloody diarrhea # hematemesis, - likely secondary to variceal bleed - will start her on octreotide, pantoprazole IV b.i.d., as well as ceftriaxone for SBP prophylaxis - GI consulted - hemodynamically stable this time -continue home nodalol - follow CBC - will keep NPO # bright red blood per rectum - likely due to upper GI bleed in the setting of esophageal varices - started on pantoprazole - will keep NPO - follow CBC - monitor for any further acute bleed # diarrhea - likely secondary to above - will rule out C diff - supportive measures - IV fluid- gentle in the setting of cirrhosis # alcohol abuse and withdrawal - start on phenobarb protocol - thiamine and folic acid supplement DVT prophylaxis: SCDs in setting of bleed Given patient's GI bleed patient will require minimum 2 night hospital stay for further management and evaluation Quality Stroke Does the patient have a stroke diagnosis?: No VTE Prior VTE?: No VTE Risk Level:: Medical - moderate - high VTE Device Contraindication: N/A - Device Ordered VTE Drug Contraindication: Treatment Not Indicated
[2021-10-18] MEDS: Octreotide Acetate 100 MCG/ML AMPUL 50 MCG IVPUSH (05:44)
[2021-10-18] MEDS: cefTRIAXone sodium 1 GM in 0.9 % Sodium Chloride 50 ML IV (05:44)
[2021-10-18] MEDS: Pantoprazole Sodium 40 MG/10 ML VIAL IVPUSH ×2 (05:44→18:16)
[2021-10-18] MEDS: Lactated Ringers 1,000 ML 80 ML IVCONT (06:17)
[2021-10-18 07:03] LABS: Basophils Absolute Auto 0.1 X10*3/uL (0.0-0.2); Basophils Percent Auto 1.8 % (0-2); Eosinophils Absolute Auto 0.2 X10*3/uL (0.0-0.4); Eosinophils Percent Auto 3.8 % (0-4); Hematocrit 37.9 % (37.0-47.0); Hemoglobin 11.5 g/dl (12.0-16.0); Imm Gran Abs Auto 0.01 X10*3/uL (0.00-0.03); Imm Gran Pct Auto 0.3 % (0.0-0.4); Lymphocytes Absolute Auto 0.7 X10*3/uL (1.2-4.9); Lymphocytes Percent Auto 18.7 % (20-40); MANUAL DIFF FLAG SCAN; Mean Corpuscular HGB Conc 30.3 g/dl (31.0-35.0); Mean Corpuscular Hemoglobin 24.3 pg (27.0-33.0); Monocytes Absolute Auto 0.5 X10*3/uL (0.1-1.2); Neutrophils Absolute Auto 2.5 x10*3/uL (2.0-8.3); Neutrophils Percent Auto 63.4 % (45-73); PLT CLUMP 1; Red Blood Count 4.74 X10*6/uL (4.20-5.50); Red Cell Distribution Width 20.7 % (11.0-16.0); SCAN SMEAR FLAG 1
[2021-10-18 07:27] LABS: Magnesium 1.6 mg/dL (1.6-2.6)
[2021-10-18 07:35] LABS: Anion Gap 20 (12-20); Blood Urea Nitrogen 3 mg/dL (9-16); Calcium 7.2 mg/dL (8.4-10.2); Carbon Dioxide 20 mmol/L (22-29); Chloride 105 mmol/L (96-108); Creatinine Clr Calc Pharmacy 99.1; Estimated Glomerular Filt Rate > 60; Glucose Random 71 mg/dL (60-115); Potassium 3.1 mmol/L (3.3-5.1); Sodium 142 mmol/L (135-145)
--- NOTE | 2021-10-18 07:46 | PHA.MEDREC ---
Pharmacy Consult ? Medication Reconciliation Pharmacy has completed the medication reconciliation. Patient was a poor historian. Admits she has not been compliant in quite a while . Claim history shows noncompliance for roughly two months. List is based off the medications she brought with her, states what was in the bag is what she would have been taking.
[2021-10-18 07:51] LABS: Platelet Count 36 X10*3/uL (160-400); White Blood Count 3.9 X10*3/uL (4.8-10.8)
[2021-10-18 07:52] LABS: SLIDE REVIEW VERIFIED
[2021-10-18] MEDS: Octreotide Acetate 500 MCG in 0.9 % Sodium Chloride 500 ML 50.1 MCG IVCONT ×2 (07:53→18:30)
[2021-10-18] MEDS: 0.9 % Sodium Chloride Flush 3 ML SYRINGE IVFLUSH (07:59)
[2021-10-18] MEDS: Thiamine HCL 100 MG TABLET PO (08:33)
[2021-10-18] MEDS: Folic Acid 1 MG TABLET PO (08:33)
[2021-10-18] MEDS: Magnesium Oxide 400 MG TABLET PO ×2 (08:33→18:16)
[2021-10-18] MEDS: Spironolactone 25 MG TABLET 100 MG PO (08:33)
--- NOTE | 2021-10-18 08:34 | PC.NURSE ---
sr on monitor, alert, nad, skin wpd, incontinent of urine and cleaned
[2021-10-18 09:00] LABS: INTERNATIONAL NORM RATIO 1.4 (0.9-1.1); Prothrombin Time 15.7 SEC (10.0-13.1)
[2021-10-18] MEDS: Naltrexone HCl 50 MG TABLET PO (10:24)
[2021-10-18] MEDS: Venlafaxine HCl ER 37.5 MG CAP.ER.24H PO (10:25)
[2021-10-18] MEDS: nadoloL 20 MG TABLET PO (10:25)
--- NOTE | 2021-10-18 11:59 | PC.NURSE ---
First dose of phenobarb given late. Pharmacy instructed to give dose 3 hours after the last dose that was given
--- NOTE | 2021-10-18 12:02 | MHC.CM.PN ---
PT REPORTS SHE AND HER BOYFRIEND ARE HOMELESS AND STAY EITHER IN HOTELS OR HIS CAR SHE REPORTS SHE HAS NO COMMUNITY SERVICES AND HAS TRIED CALLING [employer] FOR HOUSING ASSISTANCE HOWEVER THEY WERE NO HELP SHE REPORTS SHE WAS ACTIVE WITH [place] [facility] [place] HOWEVER IT HAS BEEN A COUPLE YEARS SINCE SHE SAW HER PT REPORTS HER BOYFRIEND IS HER HCP, COPY REQUESTED PT REPORTS SHE IS COVID VACCINATED IMM DELIVERED, COPY SENT TO [facility] CURRENT DC PLAN IS FOR PT TO RETURN TO PREVIOUS LIVING SITUATION BOYFRIEND TO TRANSPORT
--- NOTE | 2021-10-18 14:45 | PM.GICN ---
History of Present Illness Data of Consult Service Date: 10/18/21 Requesting physician: Cordell Jones Primary Care Provider: None Physician HPI Reason for consult: hematemesis 56-year-old female w/ h/o alcohol abuse, liver cirrhosis, who I am seeing for assessment for hematemesis. Patient has been drinking a pint of liquor daily for months now, but does admit to being a life long alcoholic. She said she noted nausea with dark colored emesis with a little bit of mucous and fresh rectal bleeding for last 4-5 days. She also noted mild crampy lower abdominal pain 6/10 in severity worse with food. she has loose stools. not taking blood thinners or nsaids. no fever or chills, no jaundice, no chest pain, no shortness of breath, no new cough, no sputum production, no urinary symptoms and no lower extremity edema. Labs: WBC count 6.0, hemoglobin of 10.5 (rept was 11.5 g/dl), hematocrit 34.4, potassium 3.2, magnesium of 1.3, bili of 1.9, alcohol level of 285.? CT imaging: varices with cirrhosis, last CT imaging 2020 with splenorenal shunt noted as well Review of Systems Review of Systems: All other systems are reviewed and are negative Constitutional: Reports as per HPI and Reports no additional constitutional complaints Eyes: Reports as per HPI and Reports no additional eye complaints Reports system reviewed and no additional complaints, except as documented Cardiovascular: Reports as per HPI and Reports no additional cardiovascular complaints Respiratory: Reports as per HPI and Reports no additional respiratory complaints Gastrointestinal: Reports as per HPI and Reports no additional gastrointestinal complaints Genitourinary: Reports no additional female genitourinary complaints Musculoskeletal: Reports no additional musculoskeletal complaints Skin/Breast: Reports system reviewed and no additional complaints, except as docu Psychiatric: Reports no additional psychiatric complaints Endocrine: Reports no additional endocrine complaints Hematologic/Lymphatic: Reports no additional hematologic/lymphatic complaints Allergic/Immunologic: Reports no additional allergic/immunologic complaints Reports system reviewed and no additional complaints, except as documented and Reports Abnormal speech present [facility] Past Medical History Medical History (Updated 10/18/21 @ 05:45 by Cordell Jones MD) Alcohol abuse with withdrawal Alcoholic cirrhosis of liver Family History Family History Mother Pancreatic cancer Surgical History Surgical History (Updated 10/18/21 @ 05:45 by Cordell Jones MD) H/O foot surgery Social History Social History Household Members: None Housing: Homeless Do you presently have visiting nurse or other home services: No Alcohol intake: current Patient Tobacco Use Status: Former Tobacco user Substance Use Type: Marijuana Advance Directives: No Advance Directives Information Provided: No service: No Current occupational status: unemployed and disabled Meds Allergies Allergy/AdvReac Type Severity Reaction Status Date / Time levofloxacin [From Levaquin] Allergy Anaphylaxis Verified 03/02/21 10:48 Penicillins Allergy Anaphylaxis Verified 03/02/21 10:48 Sulfa (Sulfonamide Allergy Anaphylaxis Verified 03/02/21 10:48 Antibiotics) Active Medications: Current Medications Acetaminophen (Acetaminophen 325 Mg Tablet) 650 mg PO Q6H PRN PRN Reason: Pain, Mild (Pain Scale 1-3) Docusate Sodium (Docusate Sodium 100 Mg Capsule) 100 mg PO DAILY PRN PRN Reason: Constipation Folic Acid (Folic Acid 1 Mg Tablet) 1 mg PO DAILY [facility] Last Admin: 10/18/21 08:33 Dose: 1 mg Octreotide Acetate 500 mcg/ (Sodium Chloride) 501 mls @ 50.1 mls/hr IVCONT .Q10H [facility] Last Admin: 10/18/21 07:53 Dose: 50 mcg/hr, 50.1 mls/hr Ceftriaxone Sodium 1 gm/ (Sodium Chloride) 50 mls @ 100 mls/hr IV Q24H [facility] Last Infusion: 10/18/21 06:19 Dose: Infused Lactated Ringer's (Lr) 1,000 mls @ 80 mls/hr IVCONT .[id number] [facility] Last Admin: 10/18/21 06:17 Dose: 80 mls/hr Magnesium Oxide (Magnesium Oxide 400 Mg Tablet) 400 mg PO BIDPC [facility] Last Admin: 10/18/21 08:33 Dose: 400 mg Melatonin (Melatonin 3 Mg Tablet) 3 mg PO BEDTIME [facility] Nadolol (Nadolol 20 Mg Tablet) 20 mg PO DAILY [facility]; Protocol Last Admin: 10/18/21 10:25 Dose: 20 mg Naltrexone HCl (Naltrexone Hcl 50 Mg Tablet) 50 mg PO DAILY [facility] Last Admin: 10/18/21 10:24 Dose: 50 mg Ondansetron HCl (Ondansetron Hcl 4 Mg/2 Ml Vial) 4 mg IVPUSH Q8H PRN PRN Reason: Nausea and Vomiting Pantoprazole Sodium (Pantoprazole Sodium 40 Mg/10 Ml Vial) 40 mg IVPUSH BID@0630,1630 [facility] Last Admin: 10/18/21 05:44 Dose: 40 mg Pharmacy Consult (Consult Rx Etoh Phenob Po Only) 1 each MISCELLANE ONCE PRN; Protocol PRN Reason: Consult order Phenobarbital (Phenobarbital 30 Mg Tablet) 30 mg PO BID [facility]; Protocol Stop: 10/20/21 09:01 Phenobarbital (Phenobarbital 15 Mg Tablet) 15 mg PO BID [facility]; Protocol Stop: 10/22/21 09:01 Phenobarbital (Phenobarbital 15 Mg Tablet) 15 mg PO DAILY [facility]; Protocol Stop: 10/24/21 09:01 Sodium Chloride (0.9 % Sodium Chloride Flush 3 Ml Syringe) [facility] Last Admin: 10/18/21 07:59 Dose: 3 ml Spironolactone (Spironolactone 25 Mg Tablet) 100 mg PO DAILY [facility]; Protocol Last Admin: 10/18/21 08:33 Dose: 100 mg Thiamine HCl (Thiamine Hcl 100 Mg Tablet) 100 mg PO DAILY [facility] Last Admin: 10/18/21 08:33 Dose: 100 mg Venlafaxine HCl (Venlafaxine Hcl Er 37.5 Mg Cap.Er.24h) 37.5 mg PO DAILY [facility] Last Admin: 10/18/21 10:25 Dose: 37.5 mg Home Medications Medication Instructions Recorded Confirmed Last Taken Type folic acid 1 mg tablet 1 tab PO DAILY 03/02/21 10/18/21 Unknown History furosemide 20 mg tablet 1 tab PO DAILY 03/02/21 10/18/21 Unknown History nadolol 20 mg tablet 1 tab PO DAILY 03/02/21 10/18/21 Unknown History naltrexone 50 mg tablet 1 tab PO DAILY 03/02/21 10/18/21 Unknown History pantoprazole 40 mg tablet,delayed 1 tab PO BID 03/02/21 10/18/21 Unknown History release spironolactone 100 mg tablet 1 tab PO DAILY 03/02/21 10/18/21 Unknown History melatonin 3 mg tablet 1 tab PO BEDTIME 10/18/21 10/18/21 Unknown History rifaximin 550 mg tablet (Xifaxan) 1 tab PO BID 10/18/21 10/18/21 Unknown History venlafaxine 37.5 mg 1 cap PO DAILY 10/18/21 10/18/21 Unknown History capsule,extended release 24 hr Physical Exam Vital Signs: Vital Signs: Last Vital Signs Temp 98.1 F 10/18/21 11:41 Pulse 69 10/18/21 11:41 Resp 18 10/18/21 11:41 BP 148/64 H 10/18/21 11:41 Pulse Ox 96 10/18/21 11:41 O2 Del Method 10/18/21 11:41 O2 Flow Rate 2 10/18/21 11:41 BMI result Body Mass Index 31.2 Const: General: cooperative and no acute distress Orientation/consciousness: patient oriented x3 Eyes: General: appearance normal, both eyes and all related structures Resp: Effort & Inspection: normal respiratory effort Auscultation: clear to auscultation bilaterally Cardio: Rate: regular rate Rhythm: regular rhythm Heart sounds: S1 normal heart sound present, S2 normal heart sound present and Murmur heart sound present systolic GI: Palpation (GI): Soft to palpation Auscultation: normal bowel sounds Skin: General skin exam: no rashes or lesions noted Neuro: General: patient oriented x3 Cognition (Neuro): normal cognition Motor exam (neuro): No no tremor noted Extrem: General: Yes normal to inspection and Yes no pedal edema Psych: Appearance: disheveled Speech and movement: Slowed speech present (Psych) Judgement: Fair judgement present (Psych) Results Labs CBC & Chem 7: 10/18/21 06:16 10/18/21 06:16 Labs: Short CBC 10/17/21 10/18/21 Range/Units 16:48 06:16 WBC 6.0 3.9 L (4.8-10.8) X10*3/uL Hgb 10.5 L 11.5 L (12.0-16.0) g/dl Hct 34.4 L 37.9 (37.0-47.0) % Plt Count 85 L D 36 L D (160-400) X10*3/uL BMP 10/17/21 10/18/21 16:48 06:16 Sodium 141 142 Potassium 3.2 L 3.1 L Chloride 101 105 Carbon Dioxide 25 20 L BUN 4 L D 3 L Creatinine 0.65 0.55 Calcium 7.7 L D 7.2 L D Liver Function 10/17/21 Range/Units 16:48 Total Bilirubin 1.9 H (0.0-1.0) mg/dL Direct Bilirubin 1.1 H (0.0-0.5) mg/dL AST 117 H (5-31) U/L ALT 28 (0-31) U/L Alkaline Phosphatase 105 D (39-117) U/L Albumin 3.4 L (3.5-5.0) g/dL Assessment and Plan (1) Hematemesis: Status: Acute Plan 1/ Acute blood loss anemia with stable HGB at this point with v low plts and ongoing alcohol abuse, most likely she has alcoholic gastritis ddx; PUD, esophagitis, MW tear, dieualfoy, variceal bleeding (acutally much less likely as she has spelno renal shunt) 2/ malnutrition wiht low albiumin, and low urea PLAN: 1/ agree with PPI and ocreotide for the moment, can add carafae if needed 2/ treat alcohol withdrwal as doing 3/ trend HGB if stable possibly EGD on Thursday otherwise do over weekend. 4/ can allow clears, and advance diet if stable 5/ stool for c diff and GI PCR due to diarrhea although may be due to alcohol or gastritis 6/ check for hep a,b,c serologies Procedures Date of Service Date of Service: 10/18/21
[2021-10-18] MEDS: Melatonin 3 MG TABLET PO (20:44)
[2021-10-18] MEDS: PHENobarbitaL 30 MG TABLET PO (20:44)
[2021-10-19] VITALS (8 sets, daily range): BP systolic 116–136; BP diastolic 58–91; PULSE 50–99; RESP 16–20; TEMP 36.2–36.9; O2SAT 91–94
[2021-10-19] MEDS: 0.9 % Sodium Chloride Flush 3 ML SYRINGE IVFLUSH ×3 (00:40→19:43)
[2021-10-19] MEDS: Lactated Ringers 1,000 ML 80 ML IVCONT (00:40)
[2021-10-19] MEDS: cefTRIAXone sodium 1 GM in 0.9 % Sodium Chloride 50 ML IV (05:43)
[2021-10-19] MEDS: Pantoprazole Sodium 40 MG/10 ML VIAL IVPUSH ×2 (05:43→17:48)
[2021-10-19 07:32] LABS: Hemoglobin 10.2 g/dl (12.0-16.0); Mean Corpuscular Hemoglobin 24.5 pg (27.0-33.0); Mean Corpuscular Volume 81.5 fL (80.0-98.0); Mean Platelet Volume 11.1 fL (9.4-12.3); Red Blood Count 4.17 X10*6/uL (4.20-5.50); Red Cell Distribution Width 20.1 % (11.0-16.0)
[2021-10-19 07:36] LABS: Platelet Count 64 X10*3/uL (160-400)
[2021-10-19 08:09] LABS: Calcium 7.3 mg/dL (8.4-10.2); Estimated Glomerular Filt Rate > 60; Glucose Random 143 mg/dL (60-115)
[2021-10-19 08:39] LABS: Anion Gap 16 (12-20); Blood Urea Nitrogen 6 mg/dL (9-16); Carbon Dioxide 23 mmol/L (22-29); Chloride 99 mmol/L (96-108); Potassium 4.1 mmol/L (3.3-5.1); Sodium 134 mmol/L (135-145)
[2021-10-19 09:23] LABS: Alanine Aminotransferase 24 U/L (0-31); Alkaline Phosphatase 98 U/L (39-117); Aspartate Amino Transferase 91 U/L (5-31); Bilirubin Direct 1.4 mg/dL (0.0-0.5); Bilirubin Total 2.5 mg/dL (0.0-1.0); Total Protein 5.9 g/dL (6.5-8.0)
[2021-10-19] MEDS: PHENobarbitaL 30 MG TABLET PO ×2 (09:27→19:43)
[2021-10-19] MEDS: Sucralfate 1 GM TABLET PO ×2 (09:27→17:48)
[2021-10-19] MEDS: Folic Acid 1 MG TABLET PO (09:27)
[2021-10-19] MEDS: Magnesium Oxide 400 MG TABLET PO ×2 (09:27→17:48)
[2021-10-19] MEDS: Venlafaxine HCl ER 37.5 MG CAP.ER.24H PO (09:27)
[2021-10-19] MEDS: Spironolactone 25 MG TABLET 100 MG PO (09:27)
[2021-10-19] MEDS: nadoloL 20 MG TABLET PO (09:27)
[2021-10-19] MEDS: Naltrexone HCl 50 MG TABLET PO (09:27)
[2021-10-19] MEDS: Thiamine HCL 100 MG TABLET PO (09:27)
--- NOTE | 2021-10-19 10:55 | PHA.MEDREC ---
Pharmacy Consult ? Medication Reconciliation Pharmacy has completed the medication reconciliation DONE BY RN, REVIEWED AND APPEARS ACCURATE FROM INC CLAIM HX
[2021-10-19] MEDS: Octreotide Acetate 500 MCG in 0.9 % Sodium Chloride 500 ML 50.1 MCG IVCONT (13:08)
--- NOTE | 2021-10-19 14:18 | HO.PM.IMPN ---
Subjective Subjective Date of Service: 10/19/21 Interval History: the patient was seen and evaluated this morning Laying in bed, feels comfortable with no recurrence of bleeding Denies any fever, chills or shortness of breath Hemoglobin level stable Add diarrhea with no blood noticed No reported other overnight events. Systemic review: No fever, chills or weakness No chest pain, palpitation No shortness of breath or coughing No abdominal pain, nausea or vomiting No urinary symptoms No any rash or wounds Physical Exam Vital Signs: Vital Signs: Last Vital Signs Temp 98.0 F 10/19/21 11:15 Pulse 53 10/19/21 11:15 Resp 16 10/19/21 11:15 BP 133/91 H 10/19/21 11:15 Pulse Ox 93 10/19/21 11:15 O2 Del Method 10/19/21 11:15 O2 Flow Rate 2 10/18/21 15:53 BMI result Body Mass Index 31.2 Const: Other: Constitutional : Alert, oriented, not in distress Neck : Normal inspection, Supple Cardiovascular : RRR, no JVP, no lower extremity edema Respiratory : fair bilateral air entry, no crackles, wheezes or rhonchi Gastrointestinal: soft, lax, Normal bowel sounds, Non tender Skin : Warm, Dry Neurological : Alert & oriented x3, No focal deficit , CN 2-12 within normal Objective Data Active Medications Acetaminophen (Acetaminophen 325 Mg Tablet) 650 mg PO Q6H PRN PRN Reason: Pain, Mild (Pain Scale 1-3) Docusate Sodium (Docusate Sodium 100 Mg Capsule) 100 mg PO DAILY PRN PRN Reason: Constipation Folic Acid (Folic Acid 1 Mg Tablet) 1 mg PO DAILY [facility] Last Admin: 10/19/21 09:27 Dose: 1 mg Documented By: JENELLE Octreotide Acetate 500 mcg/ (Sodium Chloride) 501 mls @ 50.1 mls/hr IVCONT .Q10H [facility] Last Admin: 10/19/21 13:08 Dose: 50 mcg/hr, 50.1 mls/hr Documented By: JENELLE Ceftriaxone Sodium 1 gm/ (Sodium Chloride) 50 mls @ 100 mls/hr IV Q24H [facility] Last Infusion: 10/19/21 06:19 Dose: 0 mls/hr Documented By: ANTOIC Magnesium Oxide (Magnesium Oxide 400 Mg Tablet) 400 mg PO BIDPC [facility] Last Admin: 10/19/21 09:27 Dose: 400 mg Documented By: JENELLE Melatonin (Melatonin 3 Mg Tablet) 3 mg PO BEDTIME [facility] Last Admin: 10/18/21 20:44 Dose: 3 mg Documented By: ANAYA Nadolol (Nadolol 20 Mg Tablet) 20 mg PO DAILY [facility]; Protocol Last Admin: 10/19/21 09:27 Dose: 20 mg Documented By: JENELLE Naltrexone HCl (Naltrexone Hcl 50 Mg Tablet) 50 mg PO DAILY [facility] Last Admin: 10/19/21 09:27 Dose: 50 mg Documented By: JENELLE Ondansetron HCl (Ondansetron Hcl 4 Mg/2 Ml Vial) 4 mg IVPUSH Q8H PRN PRN Reason: Nausea and Vomiting Pantoprazole Sodium (Pantoprazole Sodium 40 Mg/10 Ml Vial) 40 mg IVPUSH BID@0630,1630 [facility] Last Admin: 10/19/21 05:43 Dose: 40 mg Documented By: ANTOIC Pharmacy Consult (Consult Rx Etoh Phenob Po Only) 1 each MISCELLANE ONCE PRN; Protocol PRN Reason: Consult order Pharmacy Consult (Consult Rx Perform Med Rec) 1 each MISCELLANE ONCE PRN PRN Reason: Consult order Phenobarbital (Phenobarbital 30 Mg Tablet) 30 mg PO BID [facility]; Protocol Stop: 10/20/21 09:01 Last Admin: 10/19/21 09:27 Dose: 30 mg Documented By: JENELLE Phenobarbital (Phenobarbital 15 Mg Tablet) 15 mg PO BID [facility]; Protocol Stop: 10/22/21 09:01 Phenobarbital (Phenobarbital 15 Mg Tablet) 15 mg PO DAILY [facility]; Protocol Stop: 10/24/21 09:01 Sodium Chloride (0.9 % Sodium Chloride Flush 3 Ml Syringe) 3 ml IVFLUSH [facility] Last Admin: 10/19/21 09:26 Dose: Not Given Documented By: JENELLE Non-Admin Reason: IV Running Spironolactone (Spironolactone 25 Mg Tablet) 100 mg PO DAILY [facility]; Protocol Last Admin: 10/19/21 09:27 Dose: 100 mg Documented By: JENELLE Sucralfate ([facility]fate 1 Gm Tablet) [facility] Last Admin: 10/19/21 09:27 Dose: 1 gm Documented By: JENELLE Thiamine HCl (Thiamine Hcl 100 Mg Tablet) 100 mg PO DAILY [facility] Last Admin: 10/19/21 09:27 Dose: 100 mg Documented By: JENELLE Venlafaxine HCl (Venlafaxine Hcl Er 37.5 Mg Cap.Er.24h) 37.5 mg PO DAILY [facility] Last Admin: 10/19/21 09:27 Dose: 37.5 mg Documented By: JENELLE Labs CBC & Chem 7: 10/19/21 06:53 10/19/21 06:53 Labs: Laboratory Results - last 24 hr 10/19/21 10/19/21 06:53 06:53 MCV 81.5 MCH 24.5 L MCHC 30.0 L RDW 20.1 H Plt Count 64 L D MPV 11.1 Absolute Nucleated RBC 0.000 Nucleated RBC % (auto) 0.0 Anion Gap 16 Estim Creat Clear Calc 79.0 Estimated GFR > 60 Random Glucose 143 H Calcium 7.3 L Total Bilirubin 2.5 H Direct Bilirubin 1.4 H AST 91 H ALT 24 Alkaline Phosphatase 98 Total Protein 5.9 L Albumin 3.0 L Assessment and Plan (1) Hematemesis: Status: Acute (2) Alcohol abuse with withdrawal: Status: Acute (3) Acute hypokalemia: Status: Acute (4) Rectal bleed: Status: Acute Plan This is a 48-year-old female past medical history of alcohol abuse as well as alcohol liver cirrhosis with history of esophageal varices presents to the hospital with hematemesis and bloody diarrhea # hematemesis, No further episodes likely secondary to variceal bleed Continue octreotide, pantoprazole IV b.i.d. ceftriaxone for SBP prophylaxis GI input appreciated, plan endoscopy Thursday continue home nodalol follow CBC Advanced diet to clears # bright red blood per rectum Secondary to GI bleed, possible internal hemorrhoids follow CBC # diarrhea Clearing, no more bleeding supportive measures Discontinue IVF # alcohol abuse and withdrawal Continue phenobarb protocol thiamine and folic acid supplement DVT prophylaxis SCDs in setting of bleed Given patient's GI bleed patient will require overnight hospital stay for further management and evaluation pending EGD Thursday Quality Stroke Does the patient have a stroke diagnosis?: No VTE Prior VTE?: No VTE Risk Level:: Medical - moderate - high VTE Device Contraindication: N/A - Device Ordered VTE Drug Contraindication: Treatment Not Indicated
[2021-10-19] MEDS: Melatonin 3 MG TABLET PO (19:43)
[2021-10-20 04:00] VITALS: BP 141/64; PULSE 58; RESP 16; TEMP 37.2; O2SAT 93
[2021-10-20] MEDS: cefTRIAXone sodium 1 GM in 0.9 % Sodium Chloride 50 ML IV (04:33)
[2021-10-20] MEDS: Pantoprazole Sodium 40 MG/10 ML VIAL IVPUSH ×2 (04:33→17:32)
[2021-10-20] MEDS: Octreotide Acetate 500 MCG in 0.9 % Sodium Chloride 500 ML 50.1 MCG IVCONT (04:33)
[2021-10-20 06:26] LABS: PLT ABN DIST 1
[2021-10-20 06:28] LABS: Hematocrit 32.8 % (37.0-47.0); Mean Corpuscular HGB Conc 30.5 g/dl (31.0-35.0); Mean Corpuscular Hemoglobin 24.9 pg (27.0-33.0); Mean Corpuscular Volume 81.6 fL (80.0-98.0); Platelet Count 58 X10*3/uL (160-400); Red Blood Count 4.02 X10*6/uL (4.20-5.50); Red Cell Distribution Width 20.2 % (11.0-16.0); White Blood Count 5.2 X10*3/uL (4.8-10.8)
[2021-10-20 07:01] LABS: Alanine Aminotransferase 23 U/L (0-31); Albumin Level 3.2 g/dL (3.5-5.0); Alkaline Phosphatase 97 U/L (39-117); Aspartate Amino Transferase 64 U/L (5-31); Bilirubin Direct 1.3 mg/dL (0.0-0.5); Bilirubin Total 2.1 mg/dL (0.0-1.0); Total Protein 6.1 g/dL (6.5-8.0)
[2021-10-20 07:14] LABS: Anion Gap 15 (12-20); Blood Urea Nitrogen 7 mg/dL (9-16); Carbon Dioxide 29 mmol/L (22-29); Chloride 95 mmol/L (96-108); Creatinine Clr Calc Pharmacy 80.2; Estimated Glomerular Filt Rate > 60; Glucose Random 93 mg/dL (60-115); Potassium 4.4 mmol/L (3.3-5.1); Sodium 135 mmol/L (135-145)
[2021-10-20 07:40] VITALS: BP 147/73; PULSE 57; RESP 20; TEMP 37.2; O2SAT 92
[2021-10-20 07:44] LABS: Calcium 7.8 mg/dL (8.4-10.2)
[2021-10-20] MEDS: 0.9 % Sodium Chloride Flush 3 ML SYRINGE IVFLUSH ×3 (08:38→21:08)
[2021-10-20] MEDS: Sucralfate 1 GM TABLET PO ×2 (08:40→17:32)
[2021-10-20] MEDS: Folic Acid 1 MG TABLET PO (08:40)
[2021-10-20] MEDS: Spironolactone 25 MG TABLET 100 MG PO (08:40)
[2021-10-20] MEDS: Magnesium Oxide 400 MG TABLET PO ×2 (08:40→17:32)
[2021-10-20] MEDS: Thiamine HCL 100 MG TABLET PO (08:40)
[2021-10-20] MEDS: nadoloL 20 MG TABLET PO (08:40)
[2021-10-20] MEDS: Naltrexone HCl 50 MG TABLET PO (08:40)
[2021-10-20] MEDS: Venlafaxine HCl ER 37.5 MG CAP.ER.24H PO (08:40)
[2021-10-20] MEDS: PHENobarbitaL 30 MG TABLET PO (08:41)
--- NOTE | 2021-10-20 10:41 | P.PNIM_ITS ---
Subjective Subjective Date of Service: 10/20/21 Interval History: the patient was seen and evaluated this morning feels comfortable with no recurrence of bleeding Hemoglobin level stable No reported other overnight events. Systemic review: No fever, chills or weakness No chest pain, palpitation No shortness of breath or coughing No abdominal pain, nausea or vomiting No urinary symptoms No any rash or wounds Physical Exam Vital Signs: Vital Signs: Last Vital Signs Temp 98.9 F 10/20/21 07:40 Pulse 57 10/20/21 07:40 Resp 20 10/20/21 07:40 BP 147/73 H 10/20/21 07:40 Pulse Ox 92 10/20/21 07:40 O2 Del Method 10/20/21 07:40 O2 Flow Rate 2 10/18/21 15:53 BMI result Body Mass Index 31.2 Const: Other: Constitutional : Alert, oriented, not in distress Neck : Normal inspection, Supple Cardiovascular : RRR, no JVP, no lower extremity edema Respiratory : fair bilateral air entry, no crackles, wheezes or rhonchi Gastrointestinal: soft, lax, Normal bowel sounds, Non tender Skin : Warm, Dry Neurological : Alert & oriented x3, No focal deficit , CN 2-12 within normal Objective Data Active Medications Acetaminophen (Acetaminophen 325 Mg Tablet) 650 mg PO Q6H PRN PRN Reason: Pain, Mild (Pain Scale 1-3) Docusate Sodium (Docusate Sodium 100 Mg Capsule) 100 mg PO DAILY PRN PRN Reason: Constipation Folic Acid (Folic Acid 1 Mg Tablet) 1 mg PO DAILY [facility] Last Admin: 10/20/21 08:40 Dose: 1 mg Documented By: JENELLE Octreotide Acetate 500 mcg/ (Sodium Chloride) 501 mls @ 50.1 mls/hr IVCONT .Q10H [facility] Last Admin: 10/20/21 08:43 Dose: Not Given Documented By: JENELLE Non-Admin Reason: running Ceftriaxone Sodium 1 gm/ (Sodium Chloride) 50 mls @ 100 mls/hr IV Q24H [facility] Last Infusion: 10/20/21 05:43 Dose: 0 mls/hr Documented By: ANTOIC Magnesium Oxide (Magnesium Oxide 400 Mg Tablet) 400 mg PO BIDPC [facility] Last Admin: 10/20/21 08:40 Dose: 400 mg Documented By: JENELLE Melatonin (Melatonin 3 Mg Tablet) 3 mg PO BEDTIME [facility] Last Admin: 10/19/21 19:43 Dose: 3 mg Documented By: CAL Nadolol (Nadolol 20 Mg Tablet) 20 mg PO DAILY [facility]; Protocol Last Admin: 10/20/21 08:40 Dose: 20 mg Documented By: JENELLE Naltrexone HCl (Naltrexone Hcl 50 Mg Tablet) 50 mg PO DAILY [facility] Last Admin: 10/20/21 08:40 Dose: 50 mg Documented By: JENELLE Ondansetron HCl (Ondansetron Hcl 4 Mg/2 Ml Vial) 4 mg IVPUSH Q8H PRN PRN Reason: Nausea and Vomiting Pantoprazole Sodium (Pantoprazole Sodium 40 Mg/10 Ml Vial) 40 mg IVPUSH BID@0630,1630 [facility] Last Admin: 10/20/21 04:33 Dose: 40 mg Documented By: CAL Pharmacy Consult (Consult Rx Etoh Phenob Po Only) 1 each MISCELLANE ONCE PRN; Protocol PRN Reason: Consult order Pharmacy Consult (Consult Rx Perform Med Rec) 1 each MISCELLANE ONCE PRN PRN Reason: Consult order Phenobarbital (Phenobarbital 15 Mg Tablet) 15 mg PO BID [facility]; Protocol Stop: 10/22/21 09:01 Phenobarbital (Phenobarbital 15 Mg Tablet) 15 mg PO DAILY [facility]; Protocol Stop: 10/24/21 09:01 Sodium Chloride (0.9 % Sodium Chloride Flush 3 Ml Syringe) 3 ml IVFLUSH [facility] Last Admin: 10/20/21 08:38 Dose: 3 ml Documented By: JENELLE Spironolactone (Spironolactone 25 Mg Tablet) 100 mg PO DAILY [facility]; Protocol Last Admin: 10/20/21 08:40 Dose: 100 mg Documented By: JENELLE Sucralfate (Sucralfate 1 Gm Tablet) 1 gm PO BIDAC [facility] Last Admin: 10/20/21 08:40 Dose: 1 gm Documented By: JENELLE Thiamine HCl (Thiamine Hcl 100 Mg Tablet) 100 mg PO DAILY [facility] Last Admin: 10/20/21 08:40 Dose: 100 mg Documented By: JENELLE Venlafaxine HCl (Venlafaxine Hcl Er 37.5 Mg Cap.Er.24h) 37.5 mg PO DAILY [facility] Last Admin: 10/20/21 08:40 Dose: 37.5 mg Documented By: JENELLE Labs CBC & Chem 7: 10/20/21 06:15 10/20/21 06:15 Labs: Laboratory Results - last 24 hr 10/18/21 10/20/21 10/20/21 08:38 06:15 06:15 MCV 81.6 MCH 24.9 L MCHC 30.5 L RDW 20.2 H Plt Count 58 L MPV TNP Absolute Nucleated RBC 0.000 Nucleated RBC % (auto) 0.0 Anion Gap Estim Creat Clear Calc Estimated GFR Random Glucose Calcium Total Bilirubin 2.1 H Direct Bilirubin 1.3 H AST 64 H ALT 23 Alkaline Phosphatase 97 Total Protein 6.1 L Albumin 3.2 L C. difficile Tox B Gene TNP 10/20/21 06:15 MCV MCH MCHC RDW Plt Count MPV Absolute Nucleated RBC Nucleated RBC % (auto) Anion Gap 15 Estim Creat Clear Calc 80.2 Estimated GFR > 60 Random Glucose 93 Calcium 7.8 L D Total Bilirubin Direct Bilirubin AST ALT Alkaline Phosphatase Total Protein Albumin C. difficile Tox B Gene Assessment and Plan (1) Hematemesis: Status: Acute (2) Alcohol abuse with withdrawal: Status: Acute Plan This is a 48-year-old female past medical history of alcohol abuse as well as alcohol liver cirrhosis with history of esophageal varices presents to the hospital with hematemesis and bloody diarrhea # hematemesis likely secondary to variceal bleed Continue pantoprazole IV b.i.d. DC Octerotide ceftriaxone for SBP prophylaxis GI input appreciated, plan endoscopy tomorrow continue home nodalol follow CBC Advanced diet, NPO after midnight # bright red blood per rectum Secondary to GI bleed, possible internal hemorrhoids follow CBC # diarrhea Clearing, no more bleeding supportive measures Discontinue IVF # alcohol abuse and withdrawal Continue phenobarb protocol thiamine and folic acid supplement DVT prophylaxis SCDs in setting of bleed Given patient's GI bleed patient will require overnight hospital stay for further management and evaluation pending EGD Thursday morning Quality Stroke Does the patient have a stroke diagnosis?: No VTE Prior VTE?: No VTE Risk Level:: Medical - moderate - high VTE Device Contraindication: N/A - Device Ordered VTE Drug Contraindication: Treatment Not Indicated
[2021-10-20 12:00] VITALS: BP 122/60; PULSE 55; RESP 20; TEMP 36.4; O2SAT 94
[2021-10-20 15:09] VITALS: BP 152/69; PULSE 82; RESP 18; TEMP 36.3; O2SAT 92
[2021-10-20 19:11] VITALS: BP 137/63; PULSE 55; RESP 18; TEMP 36.4; O2SAT 96
[2021-10-20] MEDS: Melatonin 3 MG TABLET PO (21:08)
[2021-10-20] MEDS: PHENobarbitaL 15 MG TABLET PO (21:08)
[2021-10-20 23:33] VITALS: BP 153/70; PULSE 51; RESP 18; TEMP 37; O2SAT 95
[2021-10-21] VITALS (10 sets, daily range): BP systolic 99–168; BP diastolic 52–98; PULSE 46–62; RESP 16–20; TEMP 36.4–37.2; O2SAT 94–100; BMI 39.9
[2021-10-21] MEDS: Pantoprazole Sodium 40 MG/10 ML VIAL IVPUSH (06:09)
[2021-10-21] MEDS: cefTRIAXone sodium 1 GM in 0.9 % Sodium Chloride 50 ML IV (06:09)
[2021-10-21 06:36] LABS: Red Blood Count 4.17 X10*6/uL (4.20-5.50)
[2021-10-21 06:37] LABS: Hematocrit 33.9 % (37.0-47.0); Hemoglobin 10.5 g/dl (12.0-16.0); Mean Corpuscular Hemoglobin 25.2 pg (27.0-33.0); Mean Corpuscular Volume 81.3 fL (80.0-98.0); Red Cell Distribution Width 20.4 % (11.0-16.0); White Blood Count 5.7 X10*3/uL (4.8-10.8)
[2021-10-21 06:38] LABS: Platelet Count 67 X10*3/uL (160-400)
[2021-10-21 06:56] LABS: Anion Gap 16 (12-20); Blood Urea Nitrogen 5 mg/dL (9-16); Calcium 8.2 mg/dL (8.4-10.2); Carbon Dioxide 30 mmol/L (22-29); Chloride 94 mmol/L (96-108); Creatinine Clr Calc Pharmacy 95.9; Estimated Glomerular Filt Rate > 60; Glucose Random 96 mg/dL (60-115); Potassium 3.6 mmol/L (3.3-5.1); Sodium 136 mmol/L (135-145)
[2021-10-21 06:59] LABS: Alanine Aminotransferase 22 U/L (0-31); Albumin Level 3.4 g/dL (3.5-5.0); Alkaline Phosphatase 101 U/L (39-117); Aspartate Amino Transferase 57 U/L (5-31); Bilirubin Direct 1.3 mg/dL (0.0-0.5); Bilirubin Total 2.2 mg/dL (0.0-1.0); Total Protein 6.5 g/dL (6.5-8.0)
[2021-10-21] MEDS: Spironolactone 25 MG TABLET 100 MG PO (08:37)
[2021-10-21] MEDS: nadoloL 20 MG TABLET PO (08:37)
[2021-10-21] MEDS: Thiamine HCL 100 MG TABLET PO (08:37)
[2021-10-21] MEDS: PHENobarbitaL 15 MG TABLET PO ×2 (08:37→20:55)
[2021-10-21] MEDS: Naltrexone HCl 50 MG TABLET PO (08:38)
[2021-10-21] MEDS: Venlafaxine HCl ER 37.5 MG CAP.ER.24H PO (08:38)
[2021-10-21] MEDS: Magnesium Oxide 400 MG TABLET PO ×2 (08:38→17:40)
[2021-10-21] MEDS: Folic Acid 1 MG TABLET PO (08:38)
[2021-10-21] MEDS: Sucralfate 1 GM TABLET PO ×2 (08:38→17:40)
[2021-10-21] MEDS: 0.9 % Sodium Chloride Flush 3 ML SYRINGE IVFLUSH ×2 (08:44→17:41)
--- NOTE | 2021-10-21 11:58 | MHC.CM.PN ---
Plan for patient to d/c tomorrow. Case Management will continue to follow along for any d/c planning needs.
--- NOTE | 2021-10-21 13:03 | P.PNIM_ITS ---
Subjective Subjective Date of Service: 10/21/21 Interval History: the patient was seen and evaluated this morning feels comfortable with no recurrence of bleeding Hemoglobin level stable No reported other overnight events. Systemic review: No fever, chills or weakness No chest pain, palpitation No shortness of breath or coughing No abdominal pain, nausea or vomiting No urinary symptoms No any rash or wounds Physical Exam Vital Signs: Vital Signs: Last Vital Signs Temp 98.6 F 10/21/21 11:11 Pulse 62 10/21/21 11:27 Resp 20 10/21/21 11:11 BP 143/98 H 10/21/21 11:11 Pulse Ox 94 10/21/21 11:11 O2 Del Method 10/21/21 11:11 O2 Flow Rate 2 10/18/21 15:53 BMI result Body Mass Index 39.9 Const: Other: Constitutional : Alert, oriented, not in distress Neck : Normal inspection, Supple Cardiovascular : RRR, no JVP, no lower extremity edema Respiratory : fair bilateral air entry, no crackles, wheezes or rhonchi Gastrointestinal: soft, lax, Normal bowel sounds, Non tender Skin : Warm, Dry Neurological : Alert & oriented x3, No focal deficit , CN 2-12 within normal Objective Data Active Medications Acetaminophen (Acetaminophen 325 Mg Tablet) 650 mg PO Q6H PRN PRN Reason: Pain, Mild (Pain Scale 1-3) Docusate Sodium (Docusate Sodium 100 Mg Capsule) 100 mg PO DAILY PRN PRN Reason: Constipation Folic Acid (Folic Acid 1 Mg Tablet) 1 mg PO DAILY [facility] Last Admin: 10/21/21 08:38 Dose: 1 mg Documented By: TANNER Ceftriaxone Sodium 1 gm/ (Sodium Chloride) 50 mls @ 100 mls/hr IV Q24H [facility] Last Infusion: 10/21/21 07:36 Dose: 100 mls/hr Documented By: TANNER Magnesium Oxide (Magnesium Oxide 400 Mg Tablet) 400 mg PO BIDPC [facility] Last Admin: 10/21/21 08:38 Dose: 400 mg Documented By: TANNER Melatonin (Melatonin 3 Mg Tablet) 3 mg PO BEDTIME [facility] Last Admin: 10/20/21 21:08 Dose: 3 mg Documented By: ANTOIC Nadolol (Nadolol 20 Mg Tablet) 20 mg PO DAILY [facility]; Protocol Last Admin: 10/21/21 08:37 Dose: 20 mg Documented By: TANNER Naltrexone HCl (Naltrexone Hcl 50 Mg Tablet) 50 mg PO DAILY [facility] Last Admin: 10/21/21 08:38 Dose: 50 mg Documented By: TANNER Ondansetron HCl (Ondansetron Hcl 4 Mg/2 Ml Vial) 4 mg IVPUSH Q8H PRN PRN Reason: Nausea and Vomiting Pharmacy Consult (Consult Rx Etoh Phenob Po Only) 1 each MISCELLANE ONCE PRN; Protocol PRN Reason: Consult order Pharmacy Consult (Consult Rx Perform Med Rec) 1 each MISCELLANE ONCE PRN PRN Reason: Consult order Phenobarbital (Phenobarbital 15 Mg Tablet) 15 mg PO BID [facility]; Protocol Stop: 10/22/21 09:01 Last Admin: 10/21/21 08:37 Dose: 15 mg Documented By: TANNER Phenobarbital (Phenobarbital 15 Mg Tablet) 15 mg PO DAILY [facility]; Protocol Stop: 10/24/21 09:01 Sodium Chloride (0.9 % Sodium Chloride Flush 3 Ml Syringe) 3 ml IVFLUSH [facility] Last Admin: 10/21/21 08:44 Dose: 3 ml Documented By: TANNER Spironolactone (Spironolactone 25 Mg Tablet) 100 mg PO DAILY [facility]; Protocol Last Admin: 10/21/21 08:37 Dose: 100 mg Documented By: TANNER Sucralfate (Sucralfate 1 Gm Tablet) 1 gm PO BIDAC [facility] Last Admin: 10/21/21 08:38 Dose: 1 gm Documented By: TANNER Thiamine HCl (Thiamine Hcl 100 Mg Tablet) 100 mg PO DAILY [facility] Last Admin: 10/21/21 08:37 Dose: 100 mg Documented By: TANNER Venlafaxine HCl (Venlafaxine Hcl Er 37.5 Mg Cap.Er.24h) 37.5 mg PO DAILY [facility] Last Admin: 10/21/21 08:38 Dose: 37.5 mg Documented By: TANNER Labs CBC & Chem 7: 10/21/21 06:09 10/21/21 06:09 Labs: Laboratory Results - last 24 hr 10/21/21 10/21/21 10/21/21 06:09 06:09 06:09 MCV 81.3 MCH 25.2 L MCHC 31.0 RDW 20.4 H Plt Count 67 L MPV Not Reportable Absolute Nucleated RBC 0.000 Nucleated RBC % (auto) 0.0 Anion Gap 16 Estim Creat Clear Calc 95.9 Estimated GFR > 60 Random Glucose 96 Calcium 8.2 L Total Bilirubin 2.2 H Direct Bilirubin 1.3 H AST 57 H ALT 22 Alkaline Phosphatase 101 Total Protein 6.5 Albumin 3.4 L Assessment and Plan (1) Hematemesis: Status: Acute (2) Alcohol abuse with withdrawal: Status: Acute Plan This is a 48-year-old female past medical history of alcohol abuse as well as alcohol liver cirrhosis with history of esophageal varices presents to the hospital with hematemesis and bloody diarrhea # hematemesis likely secondary to variceal bleed Continue pantoprazole IV b.i.d. ceftriaxone for SBP prophylaxis GI input appreciated, to do endoscopy today continue home nodalol follow CBC Advanced diet after procedure # bright red blood per rectum Secondary to GI bleed, possible internal hemorrhoids follow CBC # diarrhea Resolved, no more bleeding supportive measures # alcohol abuse and withdrawal Finished phenobarb protocol thiamine and folic acid supplement DVT prophylaxis SCDs in setting of bleed Given patient's GI bleed patient will require overnight hospital stay for further management and evaluation pending EGD today Quality Stroke Does the patient have a stroke diagnosis?: No VTE Prior VTE?: No VTE Risk Level:: Medical - moderate - high VTE Device Contraindication: N/A - Device Ordered VTE Drug Contraindication: Treatment Not Indicated
--- NOTE | 2021-10-21 14:14 | HO.ANESPROP2 ---
[facility] Active Problems Active Problems: All Active Problems (Updated 10/18/21 @ 05:45 by Cordell Jones MD) Hematemesis (Acute) Alcohol abuse with withdrawal (Acute) Gastroenteritis (Acute) Acute hypokalemia (Acute) Rectal bleed (Acute) Physical deconditioning (Acute) Hypomagnesemia (Acute) Past Medical History Medical History (Updated 10/18/21 @ 05:45 by Cordell Jones MD) Alcohol abuse with withdrawal Alcoholic cirrhosis of liver Family History Family History Mother Pancreatic cancer Family history of problems with anesthesia: No Surgical History Surgical History (Updated 10/18/21 @ 05:45 by Cordell Jones MD) H/O foot surgery History of Problems with Anesthesia: No Social History Social History Household Members: Other Housing: Homeless Do you presently have visiting nurse or other home services: No Alcohol intake: current Patient Tobacco Use Status: Former Tobacco user Substance Use Type: Marijuana service: No Current occupational status: unemployed and disabled Meds Allergies Allergy/AdvReac Type Severity Reaction Status Date / Time levofloxacin [From Levaquin] Allergy Anaphylaxis Verified 03/02/21 10:48 Penicillins Allergy Anaphylaxis Verified 03/02/21 10:48 Sulfa (Sulfonamide Allergy Anaphylaxis Verified 03/02/21 10:48 Antibiotics) Active Medications: Current Medications Acetaminophen (Acetaminophen 325 Mg Tablet) 650 mg PO Q6H PRN PRN Reason: Pain, Mild (Pain Scale 1-3) Docusate Sodium (Docusate Sodium 100 Mg Capsule) 100 mg PO DAILY PRN PRN Reason: Constipation Folic Acid (Folic Acid 1 Mg Tablet) 1 mg PO DAILY [facility] Last Admin: 10/21/21 08:38 Dose: 1 mg Ceftriaxone Sodium 1 gm/ (Sodium Chloride) 50 mls @ 100 mls/hr IV Q24H [facility] Last Infusion: 10/21/21 07:36 Dose: Infused Magnesium Oxide (Magnesium Oxide 400 Mg Tablet) 400 mg PO BIDPC [facility] Last Admin: 10/21/21 08:38 Dose: 400 mg Melatonin (Melatonin 3 Mg Tablet) 3 mg PO BEDTIME [facility] Last Admin: 10/20/21 21:08 Dose: 3 mg Nadolol (Nadolol 20 Mg Tablet) 20 mg PO DAILY [facility]; Protocol Last Admin: 10/21/21 08:37 Dose: 20 mg Naltrexone HCl (Naltrexone Hcl 50 Mg Tablet) 50 mg PO DAILY [facility] Last Admin: 10/21/21 08:38 Dose: 50 mg Ondansetron HCl (Ondansetron Hcl 4 Mg/2 Ml Vial) 4 mg IVPUSH Q8H PRN PRN Reason: Nausea and Vomiting Pharmacy Consult (Consult Rx Etoh Phenob Po Only) 1 each MISCELLANE ONCE PRN; Protocol PRN Reason: Consult order Pharmacy Consult (Consult Rx Perform Med Rec) 1 each MISCELLANE ONCE PRN PRN Reason: Consult order Phenobarbital (Phenobarbital 15 Mg Tablet) 15 mg PO BID [facility]; Protocol Stop: 10/22/21 09:01 Last Admin: 10/21/21 08:37 Dose: 15 mg Phenobarbital (Phenobarbital 15 Mg Tablet) 15 mg PO DAILY [facility]; Protocol Stop: 10/24/21 09:01 Sodium Chloride (0.9 % Sodium Chloride Flush 3 Ml Syringe) [facility] Last Admin: 10/21/21 08:44 Dose: 3 ml Spironolactone (Spironolactone 25 Mg Tablet) 100 mg PO DAILY [facility]; Protocol Last Admin: 10/21/21 08:37 Dose: 100 mg Sucralfate (Sucralfate 1 Gm Tablet) 1 gm PO BIDAC [facility] Last Admin: 10/21/21 08:38 Dose: 1 gm Thiamine HCl (Thiamine Hcl 100 Mg Tablet) 100 mg PO DAILY [facility] Last Admin: 10/21/21 08:37 Dose: 100 mg Venlafaxine HCl (Venlafaxine Hcl Er 37.5 Mg Cap.Er.24h) 37.5 mg PO DAILY [facility] Last Admin: 10/21/21 08:38 Dose: 37.5 mg Home Medications Medication Instructions Recorded Confirmed Last Taken Type folic acid 1 mg tablet 1 tab PO DAILY 03/02/21 10/18/21 Unknown History furosemide 20 mg tablet 1 tab PO DAILY 03/02/21 10/18/21 Unknown History nadolol 20 mg tablet 1 tab PO DAILY 03/02/21 10/18/21 Unknown History naltrexone 50 mg tablet 1 tab PO DAILY 03/02/21 10/18/21 Unknown History pantoprazole 40 mg tablet,delayed 1 tab PO BID 03/02/21 10/18/21 Unknown History release spironolactone 100 mg tablet 1 tab PO DAILY 03/02/21 10/18/21 Unknown History melatonin 3 mg tablet 1 tab PO BEDTIME 10/18/21 10/18/21 Unknown History rifaximin 550 mg tablet (Xifaxan) 1 tab PO BID 10/18/21 10/18/21 Unknown History venlafaxine 37.5 mg 1 cap PO DAILY 10/18/21 10/18/21 Unknown History capsule,extended release 24 hr Exam Exam Date and Time: October 21, 2021 1414 Height,Weight and Vital Signs: Height 5 ft Weight 92.7 kg Last Vital Signs Temp 98.6 F 10/21/21 11:11 Pulse 62 10/21/21 11:27 Resp 20 10/21/21 11:11 BP 143/98 H 10/21/21 11:11 Pulse Ox 94 10/21/21 11:11 O2 Del Method 10/21/21 11:11 O2 Flow Rate 2 10/18/21 15:53 Pertinent Lab Results Pertinent Lab Results: Laboratory Tests 10/17/21 10/17/21 10/18/21 16:48 16:48 01:30 WBC 6.0 RBC 4.36 Hgb 10.5 L Hct 34.4 L MCV 78.9 L MCH 24.1 L MCHC 30.5 L RDW 20.3 H Plt Count 85 L D MPV 10.4 Immature Gran % (Auto) Neut % (Auto) Lymph % (Auto) [place] % (Auto) Eos % (Auto) Baso % (Auto) Lymph # (Auto) [place] # (Auto) Eos # (Auto) Baso # (Auto) Abs Immat Gran (auto) Absolute Neuts (auto) Absolute Nucleated RBC 0.000 Nucleated RBC % (auto) 0.0 Smear Tech's Comments PT INR Sodium 141 Potassium 3.2 L Chloride 101 Carbon Dioxide 25 Anion Gap 18 BUN 4 L D Creatinine 0.65 Estim Creat Clear Calc 83.8 Estimated GFR > 60 Random Glucose 139 H Calcium 7.7 L D Magnesium 1.3 L* Total Bilirubin 1.9 H Direct Bilirubin 1.1 H AST 117 H ALT 28 Alkaline Phosphatase 105 D Total Protein 6.6 Albumin 3.4 L Lipase 34 Stool Occult Blood POSITIVE Ethyl Alcohol 285 C. difficile Tox B Gene COVID-19 (SIMONE) COVID-19 Clin Com 10/18/21 10/18/21 10/18/21 04:15 06:16 06:16 WBC 3.9 L RBC 4.74 Hgb 11.5 L Hct 37.9 MCV 80.0 MCH 24.3 L MCHC 30.3 L RDW 20.7 H Plt Count 36 L D MPV Not Reportable Immature Gran % (Auto) 0.3 Neut % (Auto) 63.4 Lymph % (Auto) 18.7 L [place] % (Auto) 12.0 H Eos % (Auto) 3.8 Baso % (Auto) 1.8 Lymph # (Auto) 0.7 L [place] # (Auto) 0.5 Eos # (Auto) 0.2 Baso # (Auto) 0.1 Abs Immat Gran (auto) 0.01 Absolute Neuts (auto) 2.5 Absolute Nucleated RBC 0.000 Nucleated RBC % (auto) 0.0 Smear Tech's Comments VERIFIED PT INR Sodium 142 Potassium 3.1 L Chloride 105 Carbon Dioxide 20 L Anion Gap 20 BUN 3 L Creatinine 0.55 Estim Creat Clear Calc 99.1 Estimated GFR > 60 Random Glucose 71 Calcium 7.2 L D Magnesium Total Bilirubin Direct Bilirubin AST ALT Alkaline Phosphatase Total Protein Albumin Lipase Stool Occult Blood Ethyl Alcohol C. difficile Tox B Gene COVID-19 (SIMONE) Negative [employer] See Note 10/18/21 10/18/21 10/18/21 06:16 08:38 08:46 WBC RBC Hgb Hct MCV MCH MCHC RDW Plt Count MPV Immature Gran % (Auto) Neut % (Auto) Lymph % (Auto) [place] % (Auto) Eos % (Auto) Baso % (Auto) Lymph # (Auto) [place] # (Auto) Eos # (Auto) Baso # (Auto) Abs Immat Gran (auto) Absolute Neuts (auto) Absolute Nucleated RBC Nucleated RBC % (auto) Smear Tech's Comments PT 15.7 H INR 1.4 H Sodium Potassium Chloride Carbon Dioxide Anion Gap BUN Creatinine Estim Creat Clear Calc Estimated GFR Random Glucose Calcium Magnesium 1.6 Total Bilirubin Direct Bilirubin AST ALT Alkaline Phosphatase Total Protein Albumin Lipase Stool Occult Blood Ethyl Alcohol C. difficile Tox B Gene TNP COVID-19 (SIMONE) COVID-19 Clin LSEO 10/19/21 10/19/21 10/20/21 06:53 06:53 06:15 WBC 6.0 RBC 4.17 L Hgb 10.2 L Hct 34.0 L MCV 81.5 MCH 24.5 L MCHC 30.0 L RDW 20.1 H Plt Count 64 L D MPV 11.1 Immature Gran % (Auto) Neut % (Auto) Lymph % (Auto) [place] % (Auto) Eos % (Auto) Baso % (Auto) Lymph # (Auto) [place] # (Auto) Eos # (Auto) Baso # (Auto) Abs Immat Gran (auto) Absolute Neuts (auto) Absolute Nucleated RBC 0.000 Nucleated RBC % (auto) 0.0 Smear Tech's Comments PT INR Sodium 134 L Potassium 4.1 D Chloride 99 Carbon Dioxide 23 Anion Gap 16 BUN 6 L D Creatinine 0.69 Estim Creat Clear Calc 79.0 Estimated GFR > 60 Random Glucose 143 H Calcium 7.3 L Magnesium Total Bilirubin 2.5 H 2.1 H Direct Bilirubin 1.4 H 1.3 H AST 91 H 64 H ALT 24 23 Alkaline Phosphatase 98 97 Total Protein 5.9 L 6.1 L Albumin 3.0 L 3.2 L Lipase Stool Occult Blood Ethyl Alcohol C. difficile Tox B Gene COVID-19 (SIMONE) COVID-19 Clin Com 10/20/21 10/20/21 10/21/21 06:15 06:15 06:09 WBC 5.2 5.7 RBC 4.02 L 4.17 L Hgb 10.0 L 10.5 L Hct 32.8 L 33.9 L MCV 81.6 81.3 MCH 24.9 L 25.2 L MCHC 30.5 L 31.0 RDW 20.2 H 20.4 H Plt Count 58 L 67 L MPV TNP Not Reportable Immature Gran % (Auto) Neut % (Auto) Lymph % (Auto) [place] % (Auto) Eos % (Auto) Baso % (Auto) Lymph # (Auto) [place] # (Auto) Eos # (Auto) Baso # (Auto) Abs Immat Gran (auto) Absolute Neuts (auto) Absolute Nucleated RBC 0.000 0.000 Nucleated RBC % (auto) 0.0 0.0 Smear Tech's Comments PT INR Sodium 135 Potassium 4.4 Chloride 95 L Carbon Dioxide 29 Anion Gap 15 BUN 7 L Creatinine 0.68 Estim Creat Clear Calc 80.2 Estimated GFR > 60 Random Glucose 93 Calcium 7.8 L D Magnesium Total Bilirubin Direct Bilirubin AST ALT Alkaline Phosphatase Total Protein Albumin Lipase Stool Occult Blood Ethyl Alcohol C. difficile Tox B Gene COVID-19 (SIMONE) COVID-19 Blucarat 10/21/21 10/21/21 06:09 06:09 WBC RBC Hgb Hct MCV MCH MCHC RDW Plt Count MPV Immature Gran % (Auto) Neut % (Auto) Lymph % (Auto) [place] % (Auto) Eos % (Auto) Baso % (Auto) Lymph # (Auto) [place] # (Auto) Eos # (Auto) Baso # (Auto) Abs Immat Gran (auto) Absolute Neuts (auto) Absolute Nucleated RBC Nucleated RBC % (auto) Smear Tech's Comments PT INR Sodium 136 Potassium 3.6 Chloride 94 L Carbon Dioxide 30 H Anion Gap 16 BUN 5 L Creatinine 0.65 Estim Creat Clear Calc 95.9 Estimated GFR > 60 Random Glucose 96 Calcium 8.2 L Magnesium Total Bilirubin 2.2 H Direct Bilirubin 1.3 H AST 57 H ALT 22 Alkaline Phosphatase 101 Total Protein 6.5 Albumin 3.4 L Lipase Stool Occult Blood Ethyl Alcohol C. difficile Tox B Gene COVID-19 (SIMONE) COVID-19 Clin Com Airway Mallampati Class: II (Missing top coupke teeth) TM Dist: >3cm Neck ROM: Full Heart: rrr Lungs: cta Assessment and Plan Assessment Anesthesia Assessment: Anesthesia Plan Discussed and Chart Reviewed Final Anesthetic Review Family History of Problems with Anesthesia: No History of Problems with Anesthesia: No NPO: Yes ASA Class: III Final Preanesthetic Review: No Changes in Pt Med Stat, Meds/Allgs Chart Reviewed and Consent Obtained/Reviewed Patient Risk: Intermediate Procedure Risk: Intermediate Anesthetic Plan Anesthetic Plan: MAC: Disposition: Standard PACU
--- NOTE | 2021-10-21 15:25 | MHC.SHP ---
Pre-Procedural Eval Section A Date of Service: 10/21/21 The patient is an INPATIENT: Yes The History & Physical has been completed within 30 days and I have reviewed it.: Yes Section B Chief Complaint: gi bleed Allergies: Allergies Allergy/AdvReac Type Severity Reaction Status Date / Time levofloxacin [From Levaquin] Allergy Anaphylaxis Verified 03/02/21 10:48 Penicillins Allergy Anaphylaxis Verified 03/02/21 10:48 Sulfa (Sulfonamide Allergy Anaphylaxis Verified 03/02/21 10:48 Antibiotics) Plan Diagnosis/Plan: Unchanged I have reviewed the history and physical and performed a pertinent physical examination on my patient. No changes have occurred unless specified. unable to reach HCP depsite multiple attempts but patient able to verbalize nature of procedure and demonstrated understanding of benefits and risks so consent obtained directly from patient.
--- NOTE | 2021-10-21 15:27 | W.PM.OPN ---
Operative Note Operative Note Date of Service: 10/21/21 Narrative: Procedure Description: EGD Indication: anemia Anesthesia: MAC FLEXIBLE TRANSORAL UPPER GASTROINTESTINAL ENDOSCOPY UPPER ENDOSCOPY Consent: Indications for the procedure and potential complications of bleeding, perforation, reaction to medications and missed diagnosis were discussed with the patient and informed consent was obtained. Instrument: Olympus GIF H 190 J mid size upper endoscope Monitoring: Vital signs and clinical assessment, continuous EKG monitoring, Pulse oximetry, Carbon Dioxide monitoring and blood pressure monitoring were done throughout the procedure. Procedure: The patient was placed in the left lateral decubitis position and pre-procedure medications were administered and a bite block was placed. The endoscope was inserted into the mouth and advanced under direct vision to the third part of duodenum. A careful inspection was made as the upper endoscope was withdrawn including a retroflexed examination of the proximal stomach; Findings and interventions are described below. Findings: Larynx:normal Esophagus: GE junction at 36 cm, diaphragm hiatus at 36 cm, patchy areas of dissicated esophgeal mucosa in distal esophagus which is sign of esophagitis. No varices seen Stomach: Patchy gastric erythema with jean grade III ulcer at the prepyloric area measuring 8-10 mm. Grade 2 flap valve on retroflexed examination of the cardia. Duodenum: mild bulbar duodenitis Intervention: none Impression/Findings: esophagitis gastric ulcer duodenitis PLAN: can cont with PPi for at least 3 months alcohol cessation avoid nsaids
--- NOTE | 2021-10-21 15:49 | PM.DS ---
DS: Providers Provider Date of Service: 10/21/21 Date of admission: 10/18/21 04:21 Primary care physician: None Physician Consults: 10/18/21 08:14 Consult to Gastroenterology Routine Consulting Provider: Mg Nichols Reason for consultation: Hematemesis, Cirrhosis for eval and rec DS: Diagnosis Discharge Diagnosis (1) Hematemesis: Status: Acute (2) Alcohol abuse with withdrawal: Status: Acute (3) Hypomagnesemia: Status: Acute (4) Acute hypokalemia: Status: Acute (5) Rectal bleed: Status: Acute DS: Summary Hospital Course Hospital Course: Admission note HPI This is a 56-year-old female past medical history and current alcohol abuse, liver cirrhosis, presents to the hospital with complaints of diarrhea as well as bloody bowel movements and pain.? Patient reports that her symptoms have been on and off for the past 4-5 days, she has had multiple episodes of bloody vomiting as well as bright red blood per rectum.? She reports right upper quadrant discomfort but does not call it pain.? Reports no fever or chills, no jaundice, no chest pain, no shortness of breath, no new cough, no sputum production, no urinary symptoms and no lower extremity Patient does report to have a history of esophageal varices. Her labs are significant for WBC count 6.0, hemoglobin of 10.5, hematocrit 34.4, potassium 3.2, magnesium of 1.3, bili of 1.9, alcohol level of 285.? Patient reports that her last drink was the day prior as she was starting to withdrawal. Was found to be in withdrawals as well so that she is given phenobarb, start on pantoprazole IV and will be admitted for further management Hospital course The patient was admitted for evaluation of hematemesis and bloody diarrhea. No major drop in hemoglobin was noticed as she did not require any blood transfusion. Treated with IV pantoprazole, octreotide and Carafate as a concern over variceal bleed with history of alcoholic cirrhosis. EGD was done showing evidence of gastric ulcer with no esophageal viruses. GI recommended b.i.d. PPI at time of discharge. She tolerated diet well with no recurrent episodes of bleeding during the hospital stay. She was treated with phenobarbital protocol for alcohol withdrawal with good response. Received thiamine and folic acid during the hospital stay. Noted to have hypokalemia and hypomagnesemia at time of admission secondary to alcoholism. Received replacement with values improving back to normal. We advise you complete abstinence from alcohol To use pantoprazole twice Daily To follow-up with boat canvas maker installer as outpatient. Time Spent with Patient Time attestation: Total time spent providing and/or coordinating discharge services: Discharge coordination time: Greater than 30 minutes Quality: Safe Use of Opioids Does Pt have an Active Cancer Diagnosis on the Problem List?: No Quality: Stroke Does the patient have a stroke diagnosis?: No Physical Exam Vital Signs: Vital Signs: Last Vital Signs Temp 99 F 10/21/21 15:15 Pulse 48 L 10/21/21 15:15 Resp 16 10/21/21 15:15 BP 145/71 H 10/21/21 15:15 Pulse Ox 96 10/21/21 15:15 O2 Del Method 10/21/21 15:15 O2 Flow Rate 2 10/18/21 15:53 BMI result Body Mass Index 39.9 Const: Other: Constitutional : Alert, oriented, not in distress Neck : Normal inspection, Supple Cardiovascular : RRR, no JVP, no lower extremity edema Respiratory : fair bilateral air entry, no crackles, wheezes or rhonchi Gastrointestinal: soft, lax, Normal bowel sounds, Non tender Skin : Warm, Dry Neurological : Alert & oriented x3, No focal deficit , CN 2-12 within normal DS: Data Data Completed and Pending Completed studies during hospitalization [Text1]: Procedures Detoxification Services for Substance Abuse Treatment (03/02/21) Labs on day of discharge: Laboratory Results - last 24 hr 10/21/21 10/21/21 10/21/21 06:09 06:09 06:09 WBC 5.7 RBC 4.17 L Hgb 10.5 L Hct 33.9 L MCV 81.3 MCH 25.2 L MCHC 31.0 RDW 20.4 H Plt Count 67 L MPV Not Reportable Absolute Nucleated RBC 0.000 Nucleated RBC % (auto) 0.0 Sodium 136 Potassium 3.6 Chloride 94 L Carbon Dioxide 30 H Anion Gap 16 BUN 5 L Creatinine 0.65 Estim Creat Clear Calc 95.9 Estimated GFR > 60 Random Glucose 96 Calcium 8.2 L Total Bilirubin 2.2 H Direct Bilirubin 1.3 H AST 57 H ALT 22 Alkaline Phosphatase 101 Total Protein 6.5 Albumin 3.4 L Imaging Chest x-ray: Radiologist's impression: ITS Impressions Abdomen/Pelvis CT 10/18/21 02:00 IMPRESSION: Cirrhotic liver morphology. Evidence of portal hypertension with prominent varices. Nonspecific hyperdense lesions in the liver. Fleischner guidelines were followed. Discharge Plan Discharge Patient Disposition: Home, Self-Care Discharge Diagnosis: gastric ulcer Alcohol withdrawal Referrals: Physician,None [Primary Care Provider] - 1 Week Discharge Medications: Continued venlafaxine 37.5 mg capsule,extended release 24hr 1 cap PO DAILY melatonin 3 mg tablet 1 tab PO BEDTIME Xifaxan 550 mg tablet 1 tab PO BID pantoprazole 40 mg tablet,delayed release (DR/EC) 1 tab PO BID Qty: 60 0RF naltrexone 50 mg tablet 1 tab PO DAILY spironolactone 100 mg tablet 1 tab PO DAILY nadolol 20 mg tablet 1 tab PO DAILY folic acid 1 mg tablet 1 tab PO DAILY furosemide 20 mg tablet 1 tab PO DAILY magnesium oxide 400 mg (241.3 mg magnesium) Tablet 400 mg PO BIDPC 30 Days Qty: 60 0RF Discharge Orders: Discharge Order (Routine); Ordered 10/21/21 Ordered By: Trudi Birmingham Diet: Advance to usual diet Activity on Discharge: As tolerated Stand Alone Forms: Patient Portal Discharge page Care Plan Goals: Read below Health Concerns: Read below Plan of Treatment: Read below Assessment: You were admitted to the hospital for evaluation of vomiting blood. Evaluated by boat canvas maker installer who did an endoscopy showing an evidence of gastric ulcer. To continue treatment with pantoprazole twice daily and avoid alcohol and NSAIDs. Your treated as well for alcohol withdrawal with phenobarbital protocol with good response. We advise you complete abstinence from alcohol To use pantoprazole twice Daily To follow-up with boat canvas maker installer as outpatient.
[2021-10-21] MEDS: Melatonin 3 MG TABLET PO (20:55)
[2021-10-22 03:22] VITALS: BP 147/67; PULSE 53; RESP 19; TEMP 36.8; O2SAT 94
[2021-10-22] MEDS: Sucralfate 1 GM TABLET PO (06:18)
[2021-10-22 07:37] VITALS: BP 139/85; PULSE 56; RESP 16; TEMP 36.8; O2SAT 95
[2021-10-22 08:39] LABS: Hematocrit 33.2 % (37.0-47.0); Hemoglobin 10.1 g/dl (12.0-16.0); Mean Corpuscular HGB Conc 30.4 g/dl (31.0-35.0); Mean Corpuscular Hemoglobin 24.4 pg (27.0-33.0); Mean Corpuscular Volume 80.2 fL (80.0-98.0); Red Blood Count 4.14 X10*6/uL (4.20-5.50); White Blood Count 5.1 X10*3/uL (4.8-10.8)
[2021-10-22 08:40] LABS: Platelet Count 63 X10*3/uL (160-400)
--- NOTE | 2021-10-22 08:58 | HO.POSTANES ---
Post Anesthesia Evaluation Post Anesthesia Evaluation Vital Signs: Vital Signs Temp Pulse Resp BP Pulse Ox O2 Del Method 10/22/21 07:37 98.3 F 56 16 139/85 95 Room Air 10/22/21 03:22 98.3 F 53 19 147/67 H 94 Room Air 10/21/21 23:28 98.3 F 58 18 119/58 L 95 Room Air Anesthesia: Monitored Mental Status: Awake Pain Control: Satisfactory Nausea/Vomiting: None Hydration: Adequate Anesthesia-Related Issues: No Anes. Related Issues
[2021-10-22 09:29] VITALS: BP 139/85; PULSE 56; O2SAT 95
[2021-10-22] MEDS: Spironolactone 25 MG TABLET 100 MG PO (10:07)
[2021-10-22] MEDS: Magnesium Oxide 400 MG TABLET PO (10:07)
[2021-10-22] MEDS: Naltrexone HCl 50 MG TABLET PO (10:07)
[2021-10-22] MEDS: Thiamine HCL 100 MG TABLET PO (10:07)
[2021-10-22] MEDS: Venlafaxine HCl ER 37.5 MG CAP.ER.24H PO (10:08)
[2021-10-22] MEDS: PHENobarbitaL 15 MG TABLET PO (10:08)
[2021-10-22] MEDS: Folic Acid 1 MG TABLET PO (10:08)
[2021-10-22 11:16] VITALS: BP 115/62; PULSE 56; RESP 16; TEMP 37; O2SAT 94
[2021-10-22 14:14] VITALS: O2SAT 95
--- NOTE | 2021-10-22 15:41 | MHC.CM.PN ---
Addendum entered by Lesia Gooden 10/22/21 15:46: The patient declined assistance with Half-Way placement. Original Note: IMM 10/22/21 Female DX GIB is discharged today. She is not qualifying for STR. Per P.T. Out Pt rehab is recommended. The patient has arranged for transportation at discharge.
== END 2021-10-22 16:43 | disposition home or self-care (01) | DRG 377 ==
LOC: HO.ED 10-18 02:48 → HO.EDOVER 10-18 04:27 → HO.IMC 10-18 19:21
PROVIDERS: Internal Medicine Gastroenterology; Admitting Provider Internal Medicine; Emergency Provider Emergency Medicine; Visit Provider Student in an Organized Health Care Education/Training Program
PROC: 0DJ08ZZ Inspection of Upper Intestinal Tract, Via Natural or Artificial Opening Endoscopic (ICD-10-PCS; CPT 43235; principal; 2021-10-21 14:50)
DX: K25.4 Chronic or unspecified gastric ulcer with hemorrhage (principal); K20.91 Esophagitis, unspecified with bleeding; F10.139 Alcohol abuse with withdrawal, unspecified; K70.30 Alcoholic cirrhosis of liver without ascites; K29.81 Duodenitis with bleeding; E87.6 Hypokalemia; E83.42 Hypomagnesemia; Z59.01 Sheltered homelessness; Z20.822 Contact with and (suspected) exposure to COVID-19; Z87.891 Personal history of nicotine dependence; Z88.0 Allergy status to penicillin; Z88.2 Allergy status to sulfonamides; Z79.899 Other long term (current) drug therapy
CPT/HCPCS: 36415; 74176; 80048; 80076; 82077; 82272; 83690; 83735; 85025; 85027; 85610; 87635; 93005; 97116; 97161; 99285; J0696; J2354; J2405; J3475

== ENCOUNTER 2021-11-25 12:25 | Inpatient (IN) | payer OTHER, SELFPAY ==
--- NOTE | ~2021-11-25 | XR_ITS ---
EXAMINATION: XR CHEST CLINICAL INFORMATION: Epigastric pain and palpitation. COMPARISON: 03/02/2021 chest radiograph. TECHNIQUE: Frontal view of the chest was obtained. FINDINGS: No significant abnormality is noted involving the heart, lungs, mediastinum, bony thorax or soft tissues. XR/XR chest 1V IMPRESSION: No acute cardiopulmonary process.
--- NOTE | ~2021-11-25 | CT_ITS ---
EXAMINATION: CT ABDOMEN AND PELVIS WITHOUT CONTRAST CLINICAL INFORMATION: Abdominal pain with vomiting and blood in stool COMPARISON: CT abdomen and pelvis 10/18/2021 TECHNIQUE: Multidetector volumetric imaging was performed from the superior aspect of the liver through the pubic symphysis. Sagittal and coronal reformatted images were obtained on the technologist's workstation. This CT examination was performed using dose optimization techniques as appropriate, variously including the following: *Automated exposure control *Adjustment of mA and/or kV according to patient size (this includes techniques or standardized protocols for targeted exams where dose is matched to indication/reason for exam; i.e. extremities or head) *Use of iterative reconstruction technique DLP: 788 mGy-cm FINDINGS: LUNG BASES: Visualized lung bases are clear. Coarse mitral annular calcifications. LIVER, GALLBLADDER, AND BILIARY TREE: Diffuse hepatic hypoattenuation and cirrhotic morphology with nodular surface contour with hypertrophy of the left liver lobe. Redemonstrated relatively hypodense hepatic lesions within the right left liver lobes, not significantly changed, largest 2.1 cm in size in the lateral segment left liver lobe series 3 image 15. No biliary ductal dilation. Multiple calcified gallstones. No gallbladder wall thickening or pericholecystic inflammatory change. PANCREAS: Unremarkable. SPLEEN: Unremarkable. ADRENAL GLANDS: Unremarkable. KIDNEYS AND URETERS: The kidneys are normal in size, shape, and attenuation. No hydronephrosis, hydroureter, or calculi seen. No perinephric stranding. BLADDER: Unremarkable. GASTROINTESTINAL TRACT: No dilated bowel loops. No bowel wall thickening. Appendix is not discretely visualized. No inflammatory change the cecal base. No ascites or free air. ABDOMINAL WALL: Small fat-containing umbilical hernia. LYMPH NODES: No lymphadenopathy. VASCULAR: Normal caliber abdominal aorta with mild vascular calcifications. Periesophageal varices and splenorenal shunt redemonstrated. PELVIC VISCERA: Unremarkable. OSSEOUS STRUCTURES: Unchanged superior plate compression deformities of L1, L3, and T9. Similar appearance of multilevel degenerative disc disease most advanced at L5-S1. CT/CT abdomen pelvis wo IV con IMPRESSION: 1. Cirrhosis with evidence of portal hypertension including splenorenal shunt and paraesophageal varices. 2. Hepatic steatosis. 3. Grossly unchanged relatively hypodense nodular foci within the right left liver lobes, not optimally evaluated. Findings could represent nodular areas of fatty sparing versus other hepatic lesions. Consider further evaluation with multi phase liver MRI. 4. No evidence of bowel obstruction or other acute intra-abdominal process. 5. Cholelithiasis.
[2021-11-25 12:41] VITALS: BP 145/77; BP 160/92; PULSE 75; PULSE 93; RESP 18; TEMP 36.8; O2SAT 96; O2SAT 97; BMI 42.7
--- NOTE | 2021-11-25 12:47 | ECG_ITS ---
Test Reason : CP Blood Pressure : / mmHG Vent. Rate : 091 BPM Atrial Rate : 091 BPM P-R Int : 130 ms QRS Dur : 080 ms QT Int : 424 ms P-R-T Axes : 069 028 055 degrees QTc Int : 521 ms Sinus rhythm with Premature supraventricular complexes Septal infarct , age undetermined Prolonged QT Abnormal ECG When compared with ECG of 18-OCT-2021 03:10, Premature supraventricular complexes are now Present Nonspecific T wave abnormality no longer evident in Lateral leads QT has lengthened Referred By: Valentin Abad Electronically Signed By:TINY GOLDMAN
--- NOTE | 2021-11-25 12:57 | ED_ITS ---
HPI - Nausea/Vomiting/Diarrhea General Chief complaint: Nausea/Vomiting/Diarrhea Stated complaint: BLOOD IN VOMIT/STOOL,ALC WITHDRAWAL,LAST AM Time Seen by Provider: 11/25/21 12:47 Source: patient, family and EMS Mode of arrival: EMS Limitations: no limitations History of Present Illness HPI Narrative: 56-year-old female came in by ambulance for evaluation of nausea, blood in the vomiting, and blood in the diarrhea. Patient lives home with a friend, drinks alcohol on a daily basis, been feeling generalized weakness with nausea and vomiting reportedly streaks of blood in the vomitus, patient also had a bloody bowel movement, patient is complaining of abdominal cramps mostly in the epigastric area. Patient last drink was this morning but feeling withdrawal symptoms, feels tremors, shaky, nervous and anxious. Related Data Home Medications Medication Instructions Recorded Confirmed folic acid 1 mg tablet 1 tab PO DAILY 03/02/21 11/25/21 furosemide 20 mg tablet 1 tab PO DAILY 03/02/21 11/25/21 nadolol 20 mg tablet 1 tab PO DAILY 03/02/21 11/25/21 naltrexone 50 mg tablet 1 tab PO DAILY 03/02/21 11/25/21 melatonin 3 mg tablet 1 tab PO BEDTIME 10/18/21 11/25/21 venlafaxine 37.5 mg 1 cap PO DAILY 10/18/21 11/25/21 capsule,extended release 24 hr magnesium oxide 400 mg (241.3 mg 400 mg PO DAILY 11/25/21 11/25/21 magnesium) tablet spironolactone 50 mg tablet 1 tab PO DAILY 11/25/21 11/25/21 Previous Rx's Medication Instructions Recorded pantoprazole 40 mg tablet,delayed 1 tab PO BID #60 tabs 10/21/21 release Allergies Allergy/AdvReac Type Severity Reaction Status Date / Time levofloxacin [From Levaquin] Allergy Anaphylaxis Verified 03/02/21 10:48 Penicillins Allergy Anaphylaxis Verified 03/02/21 10:48 Sulfa (Sulfonamide Allergy Anaphylaxis Verified 03/02/21 10:48 Antibiotics) Review of Systems Review of Systems: All other systems are reviewed and are negative Constitutional: Reports as per HPI and Reports no additional constitutional complaints Eyes: Reports as per HPI and Reports no additional eye complaints Reports system reviewed and no additional complaints, except as documented Cardiovascular: Reports as per HPI and Reports no additional cardiovascular complaints Respiratory: Reports as per HPI and Reports no additional respiratory complaints Gastrointestinal: Reports as per HPI and Reports no additional gastrointestinal complaints Genitourinary: Reports no additional female genitourinary complaints Musculoskeletal: Reports no additional musculoskeletal complaints Skin/Breast: Reports system reviewed and no additional complaints, except as docu Psychiatric: Reports no additional psychiatric complaints Endocrine: Reports no additional endocrine complaints Hematologic/Lymphatic: Reports no additional hematologic/lymphatic complaints Allergic/Immunologic: Reports no additional allergic/immunologic complaints Reports system reviewed and no additional complaints, except as documented and Reports Abnormal speech present [facility] Past Medical History Medical History Alcohol abuse with withdrawal Alcoholic cirrhosis of liver Anxiety Depression Hypertension Surgical History H/O foot surgery Family History Family History Mother Pancreatic cancer Social History Social History Household Members: Other Housing: Homeless Do you presently have visiting nurse or other home services: No Alcohol intake: current Alcohol intake frequency: 3 or more drinks per day Alcohol type: hard liquor Patient Tobacco Use Status: Former Tobacco user Use of substances other than those prescribed or required for medical reasons: No Substance Use Type: Marijuana Any prior treatment program specific to substance use: No Advance Directives: No Advance Directives Information Provided: Yes Patient : No service: No Current occupational status: unemployed and disabled Physical Exam Vital Signs: Vital Signs: Last Vital Signs Temp 98.3 F 11/25/21 12:41 Pulse 75 11/25/21 12:41 Resp 18 11/25/21 12:41 BP 145/77 H 11/25/21 12:41 Pulse Ox 96 11/25/21 12:41 O2 Del Method 11/25/21 12:41 BMI result Body Mass Index 42.7 Vital signs have been reviewed as appeared to be correct. Blood pressure normal. Heart rate normal. Respiration rate normal. Temperature normal. Oxygen saturation normal. Appearance: Alert. Oriented X3. No acute distress. Anxious, tremors, tongue fasciculation. Head: Normal external exam. Normocephalic. Atraumatic. No Peres signs noted. No raccoon eyes noted Eyes: PERRLA. EOMI. Conjunctiva and sclera normal. Eyelids normal. ENT: TM's Normal. Pharynx normal. Uvula midline. Moist mucous membranes. No trismus noted. No drooling noted. No muffled voice noted. Neck: Normal inspection. Neck supple. FROM. No adenopathy. Thyroid Normal. No meningeal signs. No neck mass noted. CVS: Normal heart rate and rhythm. Heart sound normal. No murmurs noted. Pulses normal throughout. Respiratory: No respiratory distress. Painless inspiration. Breath sounds normal. No wheezes/rales/rhonchi noted. Chest nontender. No accessory muscle usage noted or decreased air movement noted. Abdomen: Soft, epigastric tenderness, no guarding, no rebound tenderness. Bowel sounds normal in all 4 quadrants. No distention noted. No organomegaly noted. No visible injury noted. Rectal exam: Bloody mucus with stool. Back: No CVA tenderness. Full range of motion noted. Skin: Skin warm and dry. Normal skin color. Normal skin turgor. No rashes/lesions/lacerations noted. Extremities: No lower extremity edema. Extremities exhibit normal range of motion. Extremities nontender. Neuro: Oriented X 3. Cranial nerve exam: II-XII are grossly intact No motor deficit. No sensory deficit. Reflexes normal. Course Course Course Narrative: 56-year-old female chronic alcohol consumption last drink was this morning, patient representing alcohol withdrawal with CIWA score of 18, patient also has been vomiting showing hypo magnesemia with prolongation of QT. 1. Start patient on phenobarb to help with the withdrawal symptoms. 2. Replete electrolytes. 3. IV fluids and anti emetic will carefully use anti emetic with abnormal prolonged QT and hypo magnesemia that may precipitate malignant arrhythmia. 4. Blood in vomitus and stool, no active bleeding continue monitoring and serial CBC, CT abdomen pelvis is unremarkable except for chronic alcoholic changes. MDM - Nausea/Vomiting/Diarrhea Medical Records Attestation: I reviewed the patient's medical records. Lab Data Attestation: I reviewed the patient's lab results. Result diagrams: 11/25/21 12:58 11/25/21 12:57 Labs: Lab Results 11/25/21 11/25/21 11/25/21 Range/Units 12:56 12:57 12:57 WBC (4.8-10.8) X10*3/uL RBC (4.20-5.50) X10*6/uL Hgb (12.0-16.0) g/dl Hct (37.0-47.0) % MCV (80.0-98.0) fL MCH (27.0-33.0) pg MCHC (31.0-35.0) g/dl RDW (11.0-16.0) % Plt Count (160-400) X10*3/uL MPV (9.4-12.3) fL Immature Gran % (Auto) (0.0-0.4) % Neut % (Auto) (45-73) % Lymph % (Auto) (20-40) % [place] % (Auto) (2-11) % Eos % (Auto) (0-4) % Baso % (Auto) (0-2) % Lymph # (Auto) (1.2-4.9) X10*3/uL [place] # (Auto) (0.1-1.2) X10*3/uL Eos # (Auto) (0.0-0.4) X10*3/uL Baso # (Auto) (0.0-0.2) X10*3/uL Abs Immat Gran (auto) (0.00-0.03) X10*3/uL Absolute Neuts (auto) (2.0-8.3) x10*3/uL Absolute Nucleated RBC (0.0-0.012) X10*3/uL Nucleated RBC % (auto) (0.0-0.2) /100WBC Sodium 142 (135-145) mmol/L Potassium 3.5 (3.3-5.1) mmol/L Chloride 101 (96-108) mmol/L Carbon Dioxide 24 (22-29) mmol/L Anion Gap 21 H (12-20) BUN 4 L (9-16) mg/dL Creatinine 0.56 (0.5-1.4) mg/dL Estim Creat Clear Calc 111.2 Estimated GFR > 60 Random Glucose 104 (60-115) mg/dL Calcium 8.3 L (8.4-10.2) mg/dL Magnesium 1.0 L* (1.6-2.6) mg/dL Total Bilirubin 2.4 H (0.0-1.0) mg/dL Direct Bilirubin 1.2 H (0.0-0.5) mg/dL AST 71 H (5-31) U/L ALT 21 (0-31) U/L Alkaline Phosphatase 95 (39-117) U/L Troponin I High Sens (<3.5-17.0) ng/L B-Natriuretic Peptide (<100) pg/mL Total Protein 7.2 (6.5-8.0) g/dL Albumin 3.5 (3.5-5.0) g/dL Lipase 27 (8-78) U/L Urine Color Urine Appearance Urine pH (5.0-9.0) Ur Specific [place] (1.005-1.025) Urine Protein (Neg-Trace) mg/dL Urine Glucose (UA) (Negative) mg/dL Urine Ketones (Negative) mg/dL Urine Blood (Negative) Urine Nitrite (Negative) Ur Leukocyte Esterase (Negative) Urine RBC (0-2) /HPF Urine WBC (0-5) /HPF Ur Squamous Epith Cells (0-2) /HPF Urine Bacteria (None Seen) Hyaline Casts (0-2) /LPF Stool Occult Blood (NEGATIVE) Ethyl Alcohol 52 mg/dL COVID-19 (SIMONE) Negative (Negative) COVID-19 Clin Com See Note 11/25/21 11/25/21 11/25/21 Range/Units 12:58 12:58 12:58 WBC 3.6 L (4.8-10.8) X10*3/uL RBC 4.26 (4.20-5.50) X10*6/uL Hgb 10.5 L (12.0-16.0) g/dl Hct 34.0 L (37.0-47.0) % MCV 79.8 L (80.0-98.0) fL MCH 24.6 L (27.0-33.0) pg MCHC 30.9 L (31.0-35.0) g/dl RDW 20.5 H (11.0-16.0) % Plt Count 74 L (160-400) X10*3/uL MPV 10.4 (9.4-12.3) fL Immature Gran % (Auto) 0.3 (0.0-0.4) % Neut % (Auto) 66.3 (45-73) % Lymph % (Auto) 12.1 L (20-40) % [place] % (Auto) 19.3 H (2-11) % Eos % (Auto) 0.6 (0-4) % Baso % (Auto) 1.4 (0-2) % Lymph # (Auto) 0.4 L (1.2-4.9) X10*3/uL [place] # (Auto) 0.7 (0.1-1.2) X10*3/uL Eos # (Auto) 0.0 (0.0-0.4) X10*3/uL Baso # (Auto) 0.1 (0.0-0.2) X10*3/uL Abs Immat Gran (auto) 0.01 (0.00-0.03) X10*3/uL Absolute Neuts (auto) 2.4 (2.0-8.3) x10*3/uL Absolute Nucleated RBC 0.000 (0.0-0.012) X10*3/uL Nucleated RBC % (auto) 0.0 (0.0-0.2) /100WBC Sodium (135-145) mmol/L Potassium (3.3-5.1) mmol/L Chloride (96-108) mmol/L Carbon Dioxide (22-29) mmol/L Anion Gap (12-20) BUN (9-16) mg/dL Creatinine (0.5-1.4) mg/dL Estim Creat Clear Calc Estimated GFR Random Glucose (60-115) mg/dL Calcium (8.4-10.2) mg/dL Magnesium (1.6-2.6) mg/dL Total Bilirubin (0.0-1.0) mg/dL Direct Bilirubin (0.0-0.5) mg/dL AST (5-31) U/L ALT (0-31) U/L Alkaline Phosphatase (39-117) U/L Troponin I High Sens 4.6 (<3.5-17.0) ng/L B-Natriuretic Peptide 140 H (<100) pg/mL Total Protein (6.5-8.0) g/dL Albumin (3.5-5.0) g/dL Lipase (8-78) U/L Urine Color Urine Appearance Urine pH (5.0-9.0) Ur Specific [place] (1.005-1.025) Urine Protein (Neg-Trace) mg/dL Urine Glucose (UA) (Negative) mg/dL Urine Ketones (Negative) mg/dL Urine Blood (Negative) Urine Nitrite (Negative) Ur Leukocyte Esterase (Negative) Urine RBC (0-2) /HPF Urine WBC (0-5) /HPF Ur Squamous Epith Cells (0-2) /HPF Urine Bacteria (None Seen) Hyaline Casts (0-2) /LPF Stool Occult Blood (NEGATIVE) Ethyl Alcohol mg/dL COVID-19 (SIMONE) (Negative) COVID-19 Clin Com 11/25/21 11/25/21 Range/Units 13:08 14:08 WBC (4.8-10.8) X10*3/uL RBC (4.20-5.50) X10*6/uL Hgb (12.0-16.0) g/dl Hct (37.0-47.0) % MCV (80.0-98.0) fL MCH (27.0-33.0) pg MCHC (31.0-35.0) g/dl RDW (11.0-16.0) % Plt Count (160-400) X10*3/uL MPV (9.4-12.3) fL Immature Gran % (Auto) (0.0-0.4) % Neut % (Auto) (45-73) % Lymph % (Auto) (20-40) % [place] % (Auto) (2-11) % Eos % (Auto) (0-4) % Baso % (Auto) (0-2) % Lymph # (Auto) (1.2-4.9) X10*3/uL [place] # (Auto) (0.1-1.2) X10*3/uL Eos # (Auto) (0.0-0.4) X10*3/uL Baso # (Auto) (0.0-0.2) X10*3/uL Abs Immat Gran (auto) (0.00-0.03) X10*3/uL Absolute Neuts (auto) (2.0-8.3) x10*3/uL Absolute Nucleated RBC (0.0-0.012) X10*3/uL Nucleated RBC % (auto) (0.0-0.2) /100WBC Sodium (135-145) mmol/L Potassium (3.3-5.1) mmol/L Chloride (96-108) mmol/L Carbon Dioxide (22-29) mmol/L Anion Gap (12-20) BUN (9-16) mg/dL Creatinine (0.5-1.4) mg/dL Estim Creat Clear Calc Estimated GFR Random Glucose (60-115) mg/dL Calcium (8.4-10.2) mg/dL Magnesium (1.6-2.6) mg/dL Total Bilirubin (0.0-1.0) mg/dL Direct Bilirubin (0.0-0.5) mg/dL AST (5-31) U/L ALT (0-31) U/L Alkaline Phosphatase (39-117) U/L Troponin I High Sens (<3.5-17.0) ng/L B-Natriuretic Peptide (<100) pg/mL Total Protein (6.5-8.0) g/dL Albumin (3.5-5.0) g/dL Lipase (8-78) U/L Urine Color Yellow Urine Appearance Clear Urine pH 8.5 (5.0-9.0) Ur Specific [place] 1.015 (1.005-1.025) Urine Protein Negative (Neg-Trace) mg/dL Urine Glucose (UA) Negative (Negative) mg/dL Urine Ketones 15 (Negative) mg/dL Urine Blood Small (1+) H (Negative) Urine Nitrite Negative (Negative) Ur Leukocyte Esterase Moderate (2+) H (Negative) Urine RBC 3-5 H (0-2) /HPF Urine WBC 6-10 H (0-5) /HPF Ur Squamous Epith Cells 3-5 (0-2) /HPF Urine Bacteria 1+ (None Seen) Hyaline Casts 0-2 (0-2) /LPF Stool Occult Blood POSITIVE (NEGATIVE) Ethyl Alcohol mg/dL COVID-19 (SIMONE) (Negative) COVID-19 Clin Com Imaging Data CT abdomen pelvis.: Attestation: I personally reviewed and interpreted this imaging study as follows: Radiologist's impression: 1. Cirrhosis with evidence of portal hypertension including splenorenal shunt and paraesophageal varices. 2. Hepatic steatosis. 3. Grossly unchanged relatively hypodense nodular foci within the right left liver lobes, not optimally evaluated. Findings could represent nodular areas of fatty sparing versus other hepatic lesions. Consider further evaluation with multi phase liver MRI. 4. No evidence of bowel obstruction or other acute intra-abdominal process. 5. Cholelithiasis. Chest x-ray: Attestation: I personally reviewed and interpreted this imaging study as follows: Radiologist's impression: No acute cardiopulmonary process. ECG Data Attestation: I personally reviewed and interpreted this ECG as follows: Interpretation: Normal sinus rhythm at 91 beats per minutes, APCs, normal axis deviation, prolonged QT, no ST-T ischemic changes Discharge Plan Discharge Clinical Impression: Acute alcoholic gastritis, Acute GI bleeding, Alcohol withdrawal, Hypomagnesemia, QT prolongation Patient Disposition: Admitted As Inpatient Prescriptions: No Action venlafaxine 37.5 mg capsule,extended release 24hr 1 cap PO DAILY melatonin 3 mg tablet 1 tab PO BEDTIME pantoprazole 40 mg tablet,delayed release (DR/EC) 1 tab PO BID Qty: 60 0RF naltrexone 50 mg tablet 1 tab PO DAILY nadolol 20 mg tablet 1 tab PO DAILY folic acid 1 mg tablet 1 tab PO DAILY furosemide 20 mg tablet 1 tab PO DAILY spironolactone 50 mg tablet 1 tab PO DAILY magnesium oxide 400 mg (241.3 mg magnesium) tablet 400 mg PO DAILY
[2021-11-25 13:02] LABS: MANUAL DIFF FLAG NO
--- NOTE | 2021-11-25 13:06 | PC.NURSE ---
patient a&ox3, iv inserted, labs drawn, alarm security or surveillance monitor applied, covid swab obtained, rectal exam performed by provider, call lopes within reach, will continue to monitor
[2021-11-25] MEDS: 0.9 % Sodium Chloride 1,000 ML 999 ML IV ×2 (13:08→13:09)
[2021-11-25 13:12] LABS: Basophils Absolute Auto 0.1 X10*3/uL (0.0-0.2); Basophils Percent Auto 1.4 % (0-2); Eosinophils Percent Auto 0.6 % (0-4); Hemoglobin 10.5 g/dl (12.0-16.0); Imm Gran Abs Auto 0.01 X10*3/uL (0.00-0.03); Imm Gran Pct Auto 0.3 % (0.0-0.4); Lymphocytes Absolute Auto 0.4 X10*3/uL (1.2-4.9); Lymphocytes Percent Auto 12.1 % (20-40); Mean Corpuscular HGB Conc 30.9 g/dl (31.0-35.0); Mean Corpuscular Hemoglobin 24.6 pg (27.0-33.0); Mean Corpuscular Volume 79.8 fL (80.0-98.0); Mean Platelet Volume 10.4 fL (9.4-12.3); Monocytes Absolute Auto 0.7 X10*3/uL (0.1-1.2); Monocytes Percent Auto 19.3 % (2-11); Neutrophils Absolute Auto 2.4 x10*3/uL (2.0-8.3); Neutrophils Percent Auto 66.3 % (45-73); Red Blood Count 4.26 X10*6/uL (4.20-5.50); Red Cell Distribution Width 20.5 % (11.0-16.0); White Blood Count 3.6 X10*3/uL (4.8-10.8)
[2021-11-25 13:13] LABS: Platelet Count 74 X10*3/uL (160-400)
[2021-11-25 13:15] LABS: OBS Int Ctl Valid YES; OBS1 POSITIVE (NEGATIVE)
[2021-11-25 13:18] LABS: COVID-19 Test Negative (Negative); IDNOW Serial# 16C4AD1C
[2021-11-25] MEDS: ondansetron HCL 4 MG/2 ML VIAL IVPUSH ×2 (13:23→20:32)
[2021-11-25] MEDS: Famotidine/PF 20 MG/2 ML VIAL IVPUSH (13:23)
[2021-11-25 13:26] LABS: B Type Natriuretic Peptide 140 pg/mL (<100); Troponin-I High Sensitivity 4.6 ng/L (<3.5-17.0)
[2021-11-25] MEDS: PHENobarbitaL sodium 130 MG/ML IM ONCE 140 MG IM (13:28)
[2021-11-25 13:33] LABS: Ethanol 52 mg/dL
[2021-11-25 13:41] LABS: Alanine Aminotransferase 21 U/L (0-31); Albumin Level 3.5 g/dL (3.5-5.0); Alkaline Phosphatase 95 U/L (39-117); Anion Gap 21 (12-20); Aspartate Amino Transferase 71 U/L (5-31); Bilirubin Direct 1.2 mg/dL (0.0-0.5); Bilirubin Total 2.4 mg/dL (0.0-1.0); Blood Urea Nitrogen 4 mg/dL (9-16); Calcium 8.3 mg/dL (8.4-10.2); Carbon Dioxide 24 mmol/L (22-29); Chloride 101 mmol/L (96-108); Creatinine Clr Calc Pharmacy 111.2; Estimated Glomerular Filt Rate > 60; Glucose Random 104 mg/dL (60-115); Lipase 27 U/L (8-78); Potassium 3.5 mmol/L (3.3-5.1); Sodium 142 mmol/L (135-145); Total Protein 7.2 g/dL (6.5-8.0)
--- NOTE | 2021-11-25 14:07 | PHA.MEDREC ---
Pharmacy Consult ? Medication Reconciliation Pharmacy has completed the medication reconciliation. PATIENT STATES SHE TAKES THE LASIX AND THE SPIRONOLACTONE BUT CLAIM HISTORY DOESNT SHOW RECENT FILL
--- NOTE | 2021-11-25 14:08 | PC.NURSE ---
ekg performed, urine obtained, pt medicated per order, seizure precautions applied, fall precautions maintained, will continue to monitor.
[2021-11-25 14:22] LABS: Appearance Urine Clear; Color Urine Yellow; Glucose Urine UA Negative (Negative); Leukocyte Esterase Urine Moderate (2+) (Negative); Nitrite Urine Negative (Negative); PH 8.5 (5.0-9.0); Specific Gravity - Urine 1.015 (1.005-1.025); UMIC TRIGGER UACC YES; Urine Blood Small (1+) (Negative); Urine Ketones 15 mg/dL (Negative); Urine Protein Negative (Neg-Trace)
[2021-11-25 15:50] LABS: Bacteria Urine 1+ (None Seen); Hyaline Casts Urine 0-2 /LPF (0-2); UACC Culture Trigger YES
--- NOTE | 2021-11-25 16:00 | P.HPHOSP_ITS ---
History of Present Illness Date of Service: 11/25/21 Chief Complaint: vomiting 48-year-old woman with history of alcohol abuse presented to the ER with complaints of nausea, vomiting and diarrhea. She reports blood in her vomitus and describes it as blood tinged. She denies any blood in her stool reports as being yellow in color. She lives with her significant other and drinks at least 4 nips of vodka a day and mixed vodka drink. She has been doing this for many years she denied any fever, chills, recent travel, sick contacts. She is very shaky and tremulous. Her magnesium was noted to be 1.0, she was given a total 4 mg of IV magnesium. She was started on phenobarbital protocol, given 1 liter of IV fluids, pepcid. Should be admitted for further management and treatment of GI bleed and alcohol withdrawal. Review of Systems Review of Systems: Denies any recent fever chills or decrease in appetite respiratory denies any shortness of breath coverage production cardiovascular Denies chest pain gastrointestinal see HPI genitourinary denies any dysuria frequency or hematuria musculoskeletal denies any joint pain or swelling neuropsych denies any weakness or seizures all other systems reviewed are negative [facility] Medical History Alcohol abuse with withdrawal Alcoholic cirrhosis of liver Anxiety Depression Hypertension Family History Mother Pancreatic cancer Surgical History H/O foot surgery Social History Household Members: Other Housing: Homeless Do you presently have visiting nurse or other home services: No Alcohol intake: current Alcohol intake frequency: 3 or more drinks per day Alcohol type: hard liquor Patient Tobacco Use Status: Former Tobacco user Use of substances other than those prescribed or required for medical reasons: No Substance Use Type: Marijuana Any prior treatment program specific to substance use: No Advance Directives: No Advance Directives Information Provided: Yes Patient : No service: No Current occupational status: unemployed and disabled Meds Allergies Allergy/AdvReac Type Severity Reaction Status Date / Time levofloxacin [From Levaquin] Allergy Anaphylaxis Verified 03/02/21 10:48 Penicillins Allergy Anaphylaxis Verified 03/02/21 10:48 Sulfa (Sulfonamide Allergy Anaphylaxis Verified 03/02/21 10:48 Antibiotics) Active Medications: Current Medications Acetaminophen (Acetaminophen 325 Mg Tablet) 650 mg PO Q6H PRN PRN Reason: Pain, Mild (Pain Scale 1-3) Famotidine (Famotidine/Pf 20 Mg/2 Ml Vial) 20 mg IVPUSH BID SANDRA Folic Acid (Folic Acid 1 Mg Tablet) 1 mg PO DAILY [facility]A Furosemide (Furosemide 20 Mg Tablet) 20 mg PO DAILY SANDRA; Protocol Magnesium Sulfate (Magnesium Sulfate/H2o) 2 gm in 50 mls @ 25 mls/hr IV ONCE ONE Stop: 11/25/21 16:57 Magnesium Sulfate (Magnesium Sulfate/H2o) 2 gm in 50 mls @ 25 mls/hr IV ONCE ONE Stop: 11/25/21 17:15 Magnesium Oxide (Magnesium Oxide 400 Mg Tablet) 400 mg PO DAILY [facility] Melatonin (Melatonin 3 Mg Tablet) 3 mg PO BEDTIME SANDRA Nadolol (Nadolol 20 Mg Tablet) 20 mg PO DAILY SANDRA; Protocol Naltrexone HCl (Naltrexone Hcl 50 Mg Tablet) 50 mg PO DAILY [facility] Non-Formulary Medication (Pantoprazole) 1 tab PO BID [facility] Ondansetron HCl (Ondansetron Hcl 4 Mg/2 Ml Vial) 4 mg IVPUSH Q8H PRN PRN Reason: Nausea and Vomiting Pharmacy Consult (Consult Rx Perform Med Rec) 1 each MISCELLANE ONCE PRN PRN Reason: Consult order Pharmacy Consult (Consult Rx Etoh Phenob Po Only) 1 each MISCELLANE ONCE PRN; Protocol PRN Reason: Consult order Phenobarbital (Phenobarbital 30 Mg Tablet) 30 mg PO BID SANDRA; Protocol Stop: 11/27/21 21:01 Phenobarbital (Phenobarbital 15 Mg Tablet) 15 mg PO BID SANDRA; Protocol Stop: 11/29/21 21:01 Phenobarbital (Phenobarbital 15 Mg Tablet) 15 mg PO DAILY [facility]; Protocol Stop: 12/01/21 09:01 Phenobarbital Sodium (Phenobarbital Sodium 130 Mg/Ml Vial Im Q3hx2) 105 mg IM Q3H SANDRA; Protocol Stop: 11/25/21 20:01 Sodium Chloride (0.9 % Sodium Chloride Flush 3 Ml Syringe) 3 ml IVFLUSH QSHIFT [facility] Spironolactone (Spironolactone 25 Mg Tablet) 50 mg PO DAILY SANDRA; Protocol Venlafaxine HCl (Venlafaxine Hcl Er 37.5 Mg Cap.Er.24h) 37.5 mg PO DAILY [facility]A Home Medications Medication Instructions Recorded Confirmed Last Taken Type folic acid 1 mg tablet 1 tab PO DAILY 03/02/21 11/25/21 11/22/21 History furosemide 20 mg tablet 1 tab PO DAILY 03/02/21 11/25/21 11/22/21 History nadolol 20 mg tablet 1 tab PO DAILY 03/02/21 11/25/21 11/22/21 History naltrexone 50 mg tablet 1 tab PO DAILY 03/02/21 11/25/21 11/22/21 History melatonin 3 mg tablet 1 tab PO BEDTIME 10/18/21 11/25/21 11/22/21 History venlafaxine 37.5 mg 1 cap PO DAILY 10/18/21 11/25/21 11/22/21 History capsule,extended release 24 hr magnesium oxide 400 mg (241.3 mg 400 mg PO DAILY 11/25/21 11/25/21 11/22/21 History magnesium) tablet spironolactone 50 mg tablet 1 tab PO DAILY 11/25/21 11/25/21 11/22/21 History Physical Exam Vital Signs and Narrative: Vital Signs: Last Vital Signs Temp 98.3 F 11/25/21 12:41 Pulse 75 11/25/21 12:41 Resp 18 11/25/21 12:41 BP 145/77 H 11/25/21 12:41 Pulse Ox 96 11/25/21 12:41 O2 Del Method 11/25/21 12:41 BMI result Body Mass Index 42.7 Appearing in no acute distress head is normocephalic atraumatic eyes pupils are PERRLA sclera is anicteric mouth throat mucous membranes are intact and moist neck is supple no lymphadenopathy, no JVD noted lung sounds are clear to auscultation heart regular rate rhythm, clear S1, S2 positive bowel sounds, abdomen is soft, nontender neuro patient is alert x3, no focal deficits Results Labs CBC and Chem 7: 11/25/21 12:58 11/25/21 12:57 Labs: Laboratory Results - last 24 hr 11/25/21 11/25/21 11/25/21 12:56 12:57 12:57 MCV MCH MCHC RDW Plt Count MPV Immature Gran % (Auto) Neut % (Auto) Lymph % (Auto) [place] % (Auto) Eos % (Auto) Baso % (Auto) Lymph # (Auto) [place] # (Auto) Eos # (Auto) Baso # (Auto) Abs Immat Gran (auto) Absolute Neuts (auto) Absolute Nucleated RBC Nucleated RBC % (auto) Anion Gap 21 H Estim Creat Clear Calc 111.2 Estimated GFR > 60 Random Glucose 104 Calcium 8.3 L Magnesium 1.0 L* Total Bilirubin 2.4 H Direct Bilirubin 1.2 H AST 71 H ALT 21 Alkaline Phosphatase 95 B-Natriuretic Peptide Total Protein 7.2 Albumin 3.5 Lipase 27 Urine Color Urine Appearance Urine pH Ur Specific [place] Urine Protein Urine Glucose (UA) Urine Ketones Urine Blood Urine Nitrite Ur Leukocyte Esterase Urine RBC Urine WBC Ur Squamous Epith Cells Urine Bacteria Hyaline Casts Stool Occult Blood Ethyl Alcohol 52 COVID-19 (SIMONE) Negative COVID-19 Clin Com See Note 11/25/21 11/25/21 11/25/21 12:58 12:58 13:08 MCV 79.8 L MCH 24.6 L MCHC 30.9 L RDW 20.5 H Plt Count 74 L MPV 10.4 Immature Gran % (Auto) 0.3 Neut % (Auto) 66.3 Lymph % (Auto) 12.1 L [place] % (Auto) 19.3 H Eos % (Auto) 0.6 Baso % (Auto) 1.4 Lymph # (Auto) 0.4 L [place] # (Auto) 0.7 Eos # (Auto) 0.0 Baso # (Auto) 0.1 Abs Immat Gran (auto) 0.01 Absolute Neuts (auto) 2.4 Absolute Nucleated RBC 0.000 Nucleated RBC % (auto) 0.0 Anion Gap Estim Creat Clear Calc Estimated GFR Random Glucose Calcium Magnesium Total Bilirubin Direct Bilirubin AST ALT Alkaline Phosphatase B-Natriuretic Peptide 140 H Total Protein Albumin Lipase Urine Color Urine Appearance Urine pH Ur Specific [place] Urine Protein Urine Glucose (UA) Urine Ketones Urine Blood Urine Nitrite Ur Leukocyte Esterase Urine RBC Urine WBC Ur Squamous Epith Cells Urine Bacteria Hyaline Casts Stool Occult Blood POSITIVE Ethyl Alcohol COVID-19 (SIMONE) COVID-19 Clin Com 11/25/21 14:08 MCV MCH MCHC RDW Plt Count MPV Immature Gran % (Auto) Neut % (Auto) Lymph % (Auto) [place] % (Auto) Eos % (Auto) Baso % (Auto) Lymph # (Auto) [place] # (Auto) Eos # (Auto) Baso # (Auto) Abs Immat Gran (auto) Absolute Neuts (auto) Absolute Nucleated RBC Nucleated RBC % (auto) Anion Gap Estim Creat Clear Calc Estimated GFR Random Glucose Calcium Magnesium Total Bilirubin Direct Bilirubin AST ALT Alkaline Phosphatase B-Natriuretic Peptide Total Protein Albumin Lipase Urine Color Yellow Urine Appearance Clear Urine pH 8.5 Ur Specific [place] 1.015 Urine Protein Negative Urine Glucose (UA) Negative Urine Ketones 15 Urine Blood Small (1+) H Urine Nitrite Negative Ur Leukocyte Esterase Moderate (2+) H Urine RBC 3-5 H Urine WBC 6-10 H Ur Squamous Epith Cells 3-5 Urine Bacteria 1+ Hyaline Casts 0-2 Stool Occult Blood Ethyl Alcohol COVID-19 (SIMONE) COVID-19 Clin Com Imaging Radiologist's Impressions: Impressions Chest X-Ray 11/25/21 14:20 IMPRESSION: No acute cardiopulmonary process. Abdomen/Pelvis CT 11/25/21 14:25 IMPRESSION: 1. Cirrhosis with evidence of portal hypertension including splenorenal shunt and paraesophageal varices. 2. Hepatic steatosis. 3. Grossly unchanged relatively hypodense nodular foci within the right left liver lobes, not optimally evaluated. Findings could represent nodular areas of fatty sparing versus other hepatic lesions. Consider further evaluation with multi phase liver MRI. 4. No evidence of bowel obstruction or other acute intra-abdominal process. 5. Cholelithiasis. Assessment and Plan (1) Physical deconditioning: Status: Acute Plan 56-year-old woman with history of alcoholism presents to the ER with nausea, bloody vomitus and bloody diarrhea. GI bleed acute History of portal hypertension, varices Likely secondary to alcohol abuse IV ppi GI consultation, will need EGD and colonoscopy likely Hypomagnesemia Secondary to alcohol abuse Repleted with 4 mg of IV magnesium Continue home dose of oral magnesium Transaminitis Secondary to liver cirrhosis with portal hypertension Follow-up LFTs Microcytic Seems mostly chronic Likely secondary to alcohol use Follow CBC UTI start Rocephin Alcohol abuse Start phenobarbital protocol Discussed the importance of smoking cessation Thiamine, folic acid, multivitamin DVT prophylaxis with mechanical compression boots Attending Dr. Sinha Full code Patient likely requires 2 midnights in the hospital for treatment of GI bleed secondary to alcohol abuse Quality Stroke Does the patient have a stroke diagnosis?: No VTE Prior VTE?: No VTE Risk Level:: Medical - moderate - high VTE Device Contraindication: N/A - Device Ordered VTE Drug Contraindication: Treatment Not Indicated
[2021-11-25] MEDS: Magnesium Sulfate/H2O 2 GM/50 ML PIGGYBACK IV ×2 (16:16→16:29)
[2021-11-25] MEDS: Pantoprazole Sodium 40 MG/10 ML VIAL IVPUSH (17:04)
[2021-11-25] MEDS: PHENobarbitaL sodium 130 MG/ML VIAL IM Q3Hx2 105 MG IM ×2 (17:05→20:33)
[2021-11-25] MEDS: Acetaminophen 325 MG TABLET 650 MG PO (20:32)
[2021-11-25] MEDS: Omeprazole 20 MG CAPSULE.DR PO (20:33)
[2021-11-25] MEDS: Melatonin 3 MG TABLET PO (20:33)
[2021-11-25 23:27] VITALS: BP 129/59; PULSE 86; RESP 13; TEMP 36.9; O2SAT 95
[2021-11-26] MEDS: 0.9 % Sodium Chloride Flush 3 ML SYRINGE IVFLUSH ×3 (02:21→16:00)
[2021-11-26 03:46] VITALS: BP 132/69; PULSE 84; RESP 16; O2SAT 96
--- NOTE | 2021-11-26 03:54 | PC.NURSE ---
Patient is sleeping soundly. NAD,
[2021-11-26 04:43] LABS: MANUAL DIFF FLAG NO
[2021-11-26 04:44] LABS: Basophils Percent Auto 1.1 % (0-2); Eosinophils Absolute Auto 0.1 X10*3/uL (0.0-0.4); Eosinophils Percent Auto 2.9 % (0-4); Hematocrit 32.4 % (37.0-47.0); Hemoglobin 10.4 g/dl (12.0-16.0); Imm Gran Abs Auto 0.02 X10*3/uL (0.00-0.03); Imm Gran Pct Auto 0.6 % (0.0-0.4); Lymphocytes Absolute Auto 0.6 X10*3/uL (1.2-4.9); Mean Corpuscular HGB Conc 32.1 g/dl (31.0-35.0); Mean Corpuscular Hemoglobin 25.6 pg (27.0-33.0); Mean Corpuscular Volume 79.8 fL (80.0-98.0); Mean Platelet Volume 10.5 fL (9.4-12.3); Monocytes Absolute Auto 0.7 X10*3/uL (0.1-1.2); Monocytes Percent Auto 18.9 % (2-11); Neutrophils Absolute Auto 2.1 x10*3/uL (2.0-8.3); Neutrophils Percent Auto 60.5 % (45-73); Red Blood Count 4.06 X10*6/uL (4.20-5.50); Red Cell Distribution Width 20.3 % (11.0-16.0); White Blood Count 3.5 X10*3/uL (4.8-10.8)
[2021-11-26 04:50] LABS: Platelet Count 67 X10*3/uL (160-400)
[2021-11-26 05:02] LABS: Anion Gap 15 (12-20); Blood Urea Nitrogen 4 mg/dL (9-16); Calcium 7.8 mg/dL (8.4-10.2); Carbon Dioxide 26 mmol/L (22-29); Chloride 101 mmol/L (96-108); Creatinine Clr Calc Pharmacy 111.2; Estimated Glomerular Filt Rate > 60; Glucose Random 93 mg/dL (60-115); Potassium 3.7 mmol/L (3.3-5.1); Sodium 138 mmol/L (135-145)
[2021-11-26 05:03] LABS: Magnesium 1.6 mg/dL (1.6-2.6)
[2021-11-26] MEDS: ondansetron HCL 4 MG/2 ML VIAL IVPUSH (05:23)
[2021-11-26] MEDS: Pantoprazole Sodium 40 MG/10 ML VIAL IVPUSH ×2 (05:24→16:00)
[2021-11-26] MEDS: Omeprazole 20 MG CAPSULE.DR PO ×2 (08:28→20:25)
[2021-11-26] MEDS: Venlafaxine HCl ER 37.5 MG CAP.ER.24H PO (08:28)
[2021-11-26] MEDS: Multivitamin TABLET 1 TAB PO (08:28)
[2021-11-26] MEDS: Furosemide 20 MG TABLET PO (08:29)
[2021-11-26] MEDS: Spironolactone 25 MG TABLET 50 MG PO (08:29)
[2021-11-26] MEDS: Thiamine HCL 100 MG TABLET PO (08:29)
[2021-11-26] MEDS: Magnesium Oxide 400 MG TABLET PO (08:29)
[2021-11-26] MEDS: Folic Acid 1 MG TABLET PO (08:29)
[2021-11-26] MEDS: PHENobarbitaL 30 MG TABLET PO ×2 (08:29→20:25)
[2021-11-26] MEDS: nadoloL 20 MG TABLET PO (08:45)
[2021-11-26] MEDS: cefTRIAXone sodium 1 GM in 0.9 % Sodium Chloride 50 ML IV (08:48)
[2021-11-26] MEDS: Naltrexone HCl 50 MG TABLET PO (08:50)
[2021-11-26 09:05] VITALS: BP 146/68; PULSE 78; RESP 18; O2SAT 94
--- NOTE | 2021-11-26 09:24 | HO.PM.IMPN ---
Subjective Subjective Date of Service: 11/26/21 Review of Systems Follow-up alcohol abuse/withdrawal Still feeling shaky and unsteady Denies nausea, vomiting, diarrhea Physical Exam Vital Signs: Vital Signs: Last Vital Signs Temp 98.4 F 11/25/21 23:27 Pulse 78 11/26/21 09:05 Resp 18 11/26/21 09:05 BP 146/68 H 11/26/21 09:05 Pulse Ox 94 11/26/21 09:05 O2 Del Method 11/26/21 09:05 BMI result Body Mass Index 42.7 Appearing in no acute distress lung sounds are clear to auscultation heart regular rate rhythm, clear S1, S2 positive bowel sounds, abdomen is soft, nontender neuro patient is alert x3, no focal deficits Objective Data Active Medications Acetaminophen (Acetaminophen 325 Mg Tablet) 650 mg PO Q6H PRN PRN Reason: Pain, Mild (Pain Scale 1-3) Last Admin: 11/25/21 20:32 Dose: 650 mg Documented By: ANJEL Folic Acid (Folic Acid 1 Mg Tablet) 1 mg PO DAILY [facility] Last Admin: 11/26/21 08:29 Dose: 1 mg Documented By: TRUDY Furosemide (Furosemide 20 Mg Tablet) 20 mg PO DAILY [facility]; Protocol Last Admin: 11/26/21 08:29 Dose: 20 mg Documented By: TRUDY Ceftriaxone Sodium 1 gm/ (Sodium Chloride) 50 mls @ 100 mls/hr IV DAILY [facility] Last Admin: 11/26/21 08:48 Dose: 100 mls/hr Documented By: TRUDY Magnesium Oxide (Magnesium Oxide 400 Mg Tablet) 400 mg PO DAILY [facility] Last Admin: 11/26/21 08:29 Dose: 400 mg Documented By: TRUDY Melatonin (Melatonin 3 Mg Tablet) 3 mg PO BEDTIME [facility] Last Admin: 11/25/21 20:33 Dose: 3 mg Documented By: ANJEL Multivitamins/Vitamin C (Multivitamin Tablet) 1 tab PO DAILY [facility] Last Admin: 11/26/21 08:28 Dose: 1 tab Documented By: TRUDY Nadolol (Nadolol 20 Mg Tablet) 20 mg PO DAILY [facility]; Protocol Last Admin: 11/26/21 08:45 Dose: 20 mg Documented By: TRUDY Naltrexone HCl (Naltrexone Hcl 50 Mg Tablet) 50 mg PO DAILY [facility] Last Admin: 11/26/21 08:50 Dose: 50 mg Documented By: TRUDY Omeprazole (Omeprazole 20 Mg Capsule.Dr) 20 mg PO BID [facility] Last Admin: 11/26/21 08:28 Dose: 20 mg Documented By: TRUDY Ondansetron HCl (Ondansetron Hcl 4 Mg/2 Ml Vial) 4 mg IVPUSH Q8H PRN PRN Reason: Nausea and Vomiting Last Admin: 11/26/21 05:23 Dose: 4 mg Documented By: ANJEL Pantoprazole Sodium (Pantoprazole Sodium 40 Mg/10 Ml Vial) 40 mg IVPUSH BID@0630,1630 [facility] Last Admin: 11/26/21 05:24 Dose: 40 mg Documented By: ANJEL Pharmacy Consult (Consult Rx Perform Med Rec) 1 each MISCELLANE ONCE PRN PRN Reason: Consult order Pharmacy Consult (Consult Rx Etoh Phenob Po Only) 1 each MISCELLANE ONCE PRN; Protocol PRN Reason: Consult order Phenobarbital (Phenobarbital 30 Mg Tablet) 30 mg PO BID [facility]; Protocol Stop: 11/27/21 21:01 Last Admin: 11/26/21 08:29 Dose: 30 mg Documented By: TRUDY Phenobarbital (Phenobarbital 15 Mg Tablet) 15 mg PO BID [facility]; Protocol Stop: 11/29/21 21:01 Phenobarbital (Phenobarbital 15 Mg Tablet) 15 mg PO DAILY [facility]; Protocol Stop: 12/01/21 09:01 Sodium Chloride (0.9 % Sodium Chloride Flush 3 Ml Syringe) 3 ml IVFSH [facility] Last Admin: 11/26/21 08:28 Dose: 3 ml Documented By: TRUDY Spironolactone (Spironolactone 25 Mg Tablet) 50 mg PO DAILY [facility]; Protocol Last Admin: 11/26/21 08:29 Dose: 50 mg Documented By: TRUDY Thiamine HCl (Thiamine Hcl 100 Mg Tablet) 100 mg PO DAILY [facility] Last Admin: 11/26/21 08:29 Dose: 100 mg Documented By: TRUDY Venlafaxine HCl (Venlafaxine Hcl Er 37.5 Mg Cap.Er.24h) 37.5 mg PO DAILY [facility] Last Admin: 11/26/21 08:28 Dose: 37.5 mg Documented By: TRUDY Labs CBC & Chem 7: 11/26/21 04:40 11/26/21 04:40 Labs: Laboratory Results - last 24 hr 11/25/21 11/25/21 11/25/21 12:56 12:57 12:57 MCV MCH MCHC RDW Plt Count MPV Immature Gran % (Auto) Neut % (Auto) Lymph % (Auto) [place] % (Auto) Eos % (Auto) Baso % (Auto) Lymph # (Auto) [place] # (Auto) Eos # (Auto) Baso # (Auto) Abs Immat Gran (auto) Absolute Neuts (auto) Absolute Nucleated RBC Nucleated RBC % (auto) Anion Gap 21 H Estim Creat Clear Calc 111.2 Estimated GFR > 60 Random Glucose 104 Calcium 8.3 L Magnesium 1.0 L* Total Bilirubin 2.4 H Direct Bilirubin 1.2 H AST 71 H ALT 21 Alkaline Phosphatase 95 B-Natriuretic Peptide Total Protein 7.2 Albumin 3.5 Lipase 27 Urine Color Urine Appearance Urine pH Ur Specific [place] Urine Protein Urine Glucose (UA) Urine Ketones Urine Blood Urine Nitrite Ur Leukocyte Esterase Urine RBC Urine WBC Ur Squamous Epith Cells Urine Bacteria Hyaline Casts Stool Occult Blood Ethyl Alcohol 52 COVID-19 (SIMONE) Negative COVID-19 Clin Com See Note 11/25/21 11/25/21 11/25/21 12:58 12:58 13:08 MCV 79.8 L MCH 24.6 L MCHC 30.9 L RDW 20.5 H Plt Count 74 L MPV 10.4 Immature Gran % (Auto) 0.3 Neut % (Auto) 66.3 Lymph % (Auto) 12.1 L [place] % (Auto) 19.3 H Eos % (Auto) 0.6 Baso % (Auto) 1.4 Lymph # (Auto) 0.4 L [place] # (Auto) 0.7 Eos # (Auto) 0.0 Baso # (Auto) 0.1 Abs Immat Gran (auto) 0.01 Absolute Neuts (auto) 2.4 Absolute Nucleated RBC 0.000 Nucleated RBC % (auto) 0.0 Anion Gap Estim Creat Clear Calc Estimated GFR Random Glucose Calcium Magnesium Total Bilirubin Direct Bilirubin AST ALT Alkaline Phosphatase B-Natriuretic Peptide 140 H Total Protein Albumin Lipase Urine Color Urine Appearance Urine pH Ur Specific [place] Urine Protein Urine Glucose (UA) Urine Ketones Urine Blood Urine Nitrite Ur Leukocyte Esterase Urine RBC Urine WBC Ur Squamous Epith Cells Urine Bacteria Hyaline Casts Stool Occult Blood POSITIVE Ethyl Alcohol COVID-19 (SIMONE) COVID-19 Clin Com 11/25/21 11/26/21 11/26/21 14:08 04:40 04:40 MCV 79.8 L MCH 25.6 L MCHC 32.1 RDW 20.3 H Plt Count 67 L MPV 10.5 Immature Gran % (Auto) 0.6 H Neut % (Auto) 60.5 Lymph % (Auto) 16.0 L [place] % (Auto) 18.9 H Eos % (Auto) 2.9 Baso % (Auto) 1.1 Lymph # (Auto) 0.6 L [place] # (Auto) 0.7 Eos # (Auto) 0.1 Baso # (Auto) 0.0 Abs Immat Gran (auto) 0.02 Absolute Neuts (auto) 2.1 Absolute Nucleated RBC 0.000 Nucleated RBC % (auto) 0.0 Anion Gap 15 Estim Creat Clear Calc 111.2 Estimated GFR > 60 Random Glucose 93 Calcium 7.8 L D Magnesium Total Bilirubin Direct Bilirubin AST ALT Alkaline Phosphatase B-Natriuretic Peptide Total Protein Albumin Lipase Urine Color Yellow Urine Appearance Clear Urine pH 8.5 Ur Specific [place] 1.015 Urine Protein Negative Urine Glucose (UA) Negative Urine Ketones 15 Urine Blood Small (1+) H Urine Nitrite Negative Ur Leukocyte Esterase Moderate (2+) H Urine RBC 3-5 H Urine WBC 6-10 H Ur Squamous Epith Cells 3-5 Urine Bacteria 1+ Hyaline Casts 0-2 Stool Occult Blood Ethyl Alcohol COVID-19 (SIMONE) COVID-19 Clin Com 11/26/21 04:40 MCV MCH MCHC RDW Plt Count MPV Immature Gran % (Auto) Neut % (Auto) Lymph % (Auto) [place] % (Auto) Eos % (Auto) Baso % (Auto) Lymph # (Auto) [place] # (Auto) Eos # (Auto) Baso # (Auto) Abs Immat Gran (auto) Absolute Neuts (auto) Absolute Nucleated RBC Nucleated RBC % (auto) Anion Gap Estim Creat Clear Calc Estimated GFR Random Glucose Calcium Magnesium 1.6 Total Bilirubin Direct Bilirubin AST ALT Alkaline Phosphatase B-Natriuretic Peptide Total Protein Albumin Lipase Urine Color Urine Appearance Urine pH Ur Specific [place] Urine Protein Urine Glucose (UA) Urine Ketones Urine Blood Urine Nitrite Ur Leukocyte Esterase Urine RBC Urine WBC Ur Squamous Epith Cells Urine Bacteria Hyaline Casts Stool Occult Blood Ethyl Alcohol COVID-19 (SIMONE) COVID-19 Clin Com Assessment and Plan (1) Acute GI bleeding: Status: Acute Plan 56-year-old woman with history of alcoholism presents to the ER with nausea, bloody vomitus and bloody diarrhea. Of note GI bleed acute History of portal hypertension, varices, cirrhosis Likely secondary to alcohol abuse IV ppi GI consultation, will need EGD and colonoscopy likely Hypomagnesemia Secondary to alcohol abuse Repleted with 4 mg of IV magnesium in the ED 1.6 today. Will order 2 g of IV magnesium in light of prolonged QTC on admission Continue home dose of oral magnesium Transaminitis Secondary to liver cirrhosis with portal hypertension Follow-up LFTs Microcytic Seems mostly chronic Likely secondary to alcohol use Follow CBC UTI start Rocephin Follow urine culture Alcohol abuse Continue phenobarbital protocol Discussed the importance of cessation Thiamine, folic acid, multivitamin DVT prophylaxis with mechanical compression boots Attending Dr. Vazquez Full code Patient requires continued hospitalization for treatment of GI bleed secondary to alcohol abuse Quality Stroke Does the patient have a stroke diagnosis?: No VTE Prior VTE?: No VTE Risk Level:: Medical - moderate - high VTE Device Contraindication: N/A - Device Ordered VTE Drug Contraindication: Treatment Not Indicated
--- NOTE | 2021-11-26 10:54 | P.CNGI_ITS ---
History of Present Illness Data of Consult Service Date: 11/26/21 Requesting physician: Priscila Lr Primary Care Provider: Unknown Physician HPI Reason for consult: nausea, vomiting 56-year-old female w/ h/o alcohol abuse, liver cirrhosis, who I am seeing for assessment for nausea and vomiting Patient is self confessed alcoholic and been drinking vodka daily for many years--4-5 nips of vodka. she now comes with nausea and vomiting of blood tinged sputum as well as non bloody diarrheal stools with fresh blood noted mostly on wiping, denies melena. she had some epigastric discomfort but this has now gone not taking blood thinners or nsaids. no fever or chills, no jaundice, no chest pain, no shortness of breath, no new cough, no sputum production, no urinary symptoms and no lower extremity edema. she had similar presentation 10/2021 and had an EGD which revealed gastric ulcer, esophagitis and duodenitis. she wants to give up alcohol but living in a car with her partner, lack of social provisions Labs: HGB-10.4, wcc: 3.5, pls: 67, INR 1.4, M.0, bili: 2.4, AST: 71, ALT: 21 CT imaging: varices with cirrhosis, with splenorenal shunt, cholelithiasis Review of Systems Review of Systems: Constitutional : No Weight loss, No Fever, No Chills ENT/Mouth : No sore throat, No Rhinorrhea Eyes: No Swelling, No Redness Cardiovascular : No Chest Pain, No SOB, No Edema Respiratory : No Cough, No Sputum, No Wheezing Gastrointestinal : see HPI Genitourinary : NO Dysuria, No Urinary Frequency, No Hematuria, No Urgency Musculoskeletal : No joint pain, No Myalgias, No Joint Swelling Skin : No Skin Lesions, No rash Neuro : + Weakness, No Numbness, No Dizziness, No Headache Psych : No Anxiety/Panic, No Depression Heme/Lymph: No Bruising, No Lymphadenopathy Endocrine : No Polyuria, No Polydipsia All other systems reviewed and are negative. [facility] Past Medical History Medical History Alcohol abuse with withdrawal Alcoholic cirrhosis of liver Anxiety Depression Hypertension Family History Family History Mother Pancreatic cancer Family history: reviewed and not pertinent Surgical History Surgical History H/O foot surgery Social History Social History Household Members: Other Housing: Homeless Do you presently have visiting nurse or other home services: No Alcohol intake: current Alcohol intake frequency: 3 or more drinks per day Alcohol type: hard liquor Patient Tobacco Use Status: Former Tobacco user Use of substances other than those prescribed or required for medical reasons: No Substance Use Type: Marijuana Any prior treatment program specific to substance use: No Advance Directives: No Advance Directives Information Provided: Yes Patient : No service: No Current occupational status: unemployed and disabled Meds Allergies Allergy/AdvReac Type Severity Reaction Status Date / Time Penicillins Allergy Mild Rash Verified 11/26/21 09:33 levofloxacin [From Levaquin] AdvReac Unknown Unknown Unverified 11/26/21 09:33 Sulfa (Sulfonamide AdvReac Unknown Unknown Unverified 11/26/21 09:33 Antibiotics) Active Medications: Current Medications Acetaminophen (Acetaminophen 325 Mg Tablet) 650 mg PO Q6H PRN PRN Reason: Pain, Mild (Pain Scale 1-3) Last Admin: 11/25/21 20:32 Dose: 650 mg Folic Acid (Folic Acid 1 Mg Tablet) 1 mg PO DAILY [facility] Last Admin: 11/26/21 08:29 Dose: 1 mg Furosemide (Furosemide 20 Mg Tablet) 20 mg PO DAILY [facility]; Protocol Last Admin: 11/26/21 08:29 Dose: 20 mg Ceftriaxone Sodium 1 gm/ (Sodium Chloride) 50 mls @ 100 mls/hr IV DAILY [facility] Last Admin: 11/26/21 08:48 Dose: 100 mls/hr Magnesium Sulfate (Magnesium Sulfate/H2o) 2 gm in 50 mls @ 25 mls/hr IV ONCE ONE Stop: 11/26/21 11:27 Magnesium Oxide (Magnesium Oxide 400 Mg Tablet) 400 mg PO DAILY [facility] Last Admin: 11/26/21 08:29 Dose: 400 mg Melatonin (Melatonin 3 Mg Tablet) 3 mg PO BEDTIME [facility] Last Admin: 11/25/21 20:33 Dose: 3 mg Multivitamins/Vitamin C (Multivitamin Tablet) 1 tab PO DAILY [facility] Last Admin: 11/26/21 08:28 Dose: 1 tab Nadolol (Nadolol 20 Mg Tablet) 20 mg PO DAILY [facility]; Protocol Last Admin: 11/26/21 08:45 Dose: 20 mg Naltrexone HCl (Naltrexone Hcl 50 Mg Tablet) 50 mg PO DAILY [facility] Last Admin: 11/26/21 08:50 Dose: 50 mg Omeprazole (Omeprazole 20 Mg Capsule.Dr) 20 mg PO BID [facility] Last Admin: 11/26/21 08:28 Dose: 20 mg Ondansetron HCl (Ondansetron Hcl 4 Mg/2 Ml Vial) 4 mg IVPUSH Q8H PRN PRN Reason: Nausea and Vomiting Last Admin: 11/26/21 05:23 Dose: 4 mg Pantoprazole Sodium (Pantoprazole Sodium 40 Mg/10 Ml Vial) 40 mg IVPUSH BID@0630,1630 [facility] Last Admin: 11/26/21 05:24 Dose: 40 mg Pharmacy Consult (Consult Rx Perform Med Rec) 1 each MISCELLANE ONCE PRN PRN Reason: Consult order Pharmacy Consult (Consult Rx Etoh Phenob Po Only) 1 each MISCELLANE ONCE PRN; Protocol PRN Reason: Consult order Phenobarbital (Phenobarbital 30 Mg Tablet) 30 mg PO BID [facility]; Protocol Stop: 11/27/21 21:01 Last Admin: 11/26/21 08:29 Dose: 30 mg Phenobarbital (Phenobarbital 15 Mg Tablet) 15 mg PO BID [facility]; Protocol Stop: 11/29/21 21:01 Phenobarbital (Phenobarbital 15 Mg Tablet) 15 mg PO DAILY [facility]; Protocol Stop: 12/01/21 09:01 Sodium Chloride (0.9 % Sodium Chloride Flush 3 Ml Syringe) 3 ml IVFLUSH QSHIFT [facility] Last Admin: 11/26/21 08:28 Dose: 3 ml Spironolactone (Spironolactone 25 Mg Tablet) 50 mg PO DAILY [facility]; Protocol Last Admin: 11/26/21 08:29 Dose: 50 mg Thiamine HCl (Thiamine Hcl 100 Mg Tablet) 100 mg PO DAILY [facility] Last Admin: 11/26/21 08:29 Dose: 100 mg Venlafaxine HCl (Venlafaxine Hcl Er 37.5 Mg Cap.Er.24h) 37.5 mg PO DAILY [facility] Last Admin: 11/26/21 08:28 Dose: 37.5 mg Home Medications Medication Instructions Recorded Confirmed Last Taken Type folic acid 1 mg tablet 1 tab PO DAILY 03/02/21 11/25/21 11/22/21 History furosemide 20 mg tablet 1 tab PO DAILY 03/02/21 11/25/21 11/22/21 History nadolol 20 mg tablet 1 tab PO DAILY 03/02/21 11/25/21 11/22/21 History naltrexone 50 mg tablet 1 tab PO DAILY 03/02/21 11/25/21 11/22/21 History melatonin 3 mg tablet 1 tab PO BEDTIME 10/18/21 11/25/21 11/22/21 History venlafaxine 37.5 mg 1 cap PO DAILY 10/18/21 11/25/21 11/22/21 History capsule,extended release 24 hr magnesium oxide 400 mg (241.3 mg 400 mg PO DAILY 11/25/21 11/25/21 11/22/21 History magnesium) tablet spironolactone 50 mg tablet 1 tab PO DAILY 11/25/21 11/25/21 11/22/21 History Physical Exam Vital Signs: Vital Signs: Last Vital Signs Temp 98.4 F 11/25/21 23:27 Pulse 78 11/26/21 09:05 Resp 18 11/26/21 09:05 BP 146/68 H 11/26/21 09:05 Pulse Ox 94 11/26/21 09:05 O2 Del Method 11/26/21 09:05 BMI result Body Mass Index 42.7 EXAM: GENERAL: The patient is relaxed, obese. VITAL SIGNS:see workflow HEENT: Nonicteric sclerae, PERRLA, EOMI. Oropharynx clear. Moist mucous membranes. Conjunctivae appear well perfused. No thyroid mass. CHEST: Chest wall is nontender. HEART: Regular rate and rhythm without murmurs. LUNGS: Clear to auscultation bilaterally. ABDOMEN: Soft, positive bowel sounds, mildly tender epigastrium, no organomegaly.no flank tenderness RECTAL: --no blood, no masses SKIN: No rash, no excessive bruising, petechiae, or purpura. NEUROLOGIC: Cranial nerves II-XII intact without motor/sensory deficit. psych: good insight Results Labs CBC & Chem 7: 11/26/21 04:40 11/26/21 04:40 Labs: Short CBC 11/25/21 11/26/21 Range/Units 12:58 04:40 WBC 3.6 L 3.5 L (4.8-10.8) X10*3/uL Hgb 10.5 L 10.4 L (12.0-16.0) g/dl Hct 34.0 L 32.4 L (37.0-47.0) % Plt Count 74 L 67 L (160-400) X10*3/uL BMP 11/25/21 11/26/21 12:57 04:40 Sodium 142 138 Potassium 3.5 3.7 Chloride 101 101 Carbon Dioxide 24 26 BUN 4 L 4 L Creatinine 0.56 0.56 Calcium 8.3 L 7.8 L D Liver Function 11/25/21 Range/Units 12:57 Total Bilirubin 2.4 H (0.0-1.0) mg/dL Direct Bilirubin 1.2 H (0.0-0.5) mg/dL AST 71 H (5-31) U/L ALT 21 (0-31) U/L Alkaline Phosphatase 95 (39-117) U/L Albumin 3.5 (3.5-5.0) g/dL Urine 11/25/21 Range/Units 14:08 Urine Color Yellow Urine Appearance Clear Urine pH 8.5 (5.0-9.0) Ur Specific [place] 1.015 (1.005-1.025) Urine Protein Negative (Neg-Trace) mg/dL Urine Glucose (UA) Negative (Negative) mg/dL Assessment and Plan (1) Acute alcoholic gastritis: Status: Acute (2) Alcohol withdrawal: Status: Acute Plan 1/ nausea, vomiting, diarrhea with some blood in stools, ddx: alcoholic related gastroenteritis, infectious gastroenteritis, less likely varicela bleed given last endosocpy and she has spleno renal shunt --no bleeding seen on rectal exam PLAN: 1/ Alcohol withdrawal protocol 2. PPI, and carafate, scheduled anti emetic, add zinc supplementation 220 mg daily to multivitamin and B vits 3/ hold on EGD and sigmoidoscopy for the moment 4/ consider psych input as she wants to give up, SW input for housing etc \ 5/ send stool PCR and c diff testing Procedures Date of Service Date of Service: 11/26/21
[2021-11-26] MEDS: Magnesium Sulfate/H2O 2 GM/50 ML PIGGYBACK IV (11:05)
--- NOTE | 2021-11-26 11:09 | PC.NURSE ---
incontinent of urine. Full bed change and hygiene provided to patient
--- NOTE | 2021-11-26 11:10 | PC.NURSE ---
CODY at 14. Pt on phenobarbital at this time. Oriented to date but unsure of location. She is redirectable at this time.
[2021-11-26 16:41] VITALS: BP 158/75; PULSE 102; RESP 18; TEMP 36.1
--- NOTE | 2021-11-26 19:35 | PC.NURSE ---
introduced self to patient. patient on court recording monitor, sitting up in chair. no current complaints. scoring 6 on ciwa scale. vital signs updated. will continue to monitor.
[2021-11-26 19:48] VITALS: BP 140/71; PULSE 101; RESP 18; TEMP 36.3; O2SAT 97
[2021-11-26] MEDS: Melatonin 3 MG TABLET PO (20:25)
[2021-11-26] MEDS: Acetaminophen 325 MG TABLET 650 MG PO (20:26)
[2021-11-26 23:55] VITALS: BP 126/62; PULSE 81; RESP 17; TEMP 36.7; O2SAT 98
[2021-11-27] MEDS: 0.9 % Sodium Chloride Flush 3 ML SYRINGE IVFLUSH ×3 (00:32→16:40)
[2021-11-27 04:00] VITALS: BP 121/75; PULSE 78; RESP 16; TEMP 37; O2SAT 94
[2021-11-27] MEDS: Pantoprazole Sodium 40 MG/10 ML VIAL IVPUSH (05:44)
[2021-11-27 07:17] LABS: Basophils Percent Auto 0.5 % (0-2); Eosinophils Absolute Auto 0.1 X10*3/uL (0.0-0.4); Eosinophils Percent Auto 3.7 % (0-4); Hematocrit 32.6 % (37.0-47.0); Hemoglobin 10.1 g/dl (12.0-16.0); Imm Gran Abs Auto 0.01 X10*3/uL (0.00-0.03); Imm Gran Pct Auto 0.3 % (0.0-0.4); Lymphocytes Absolute Auto 0.5 X10*3/uL (1.2-4.9); Lymphocytes Percent Auto 13.3 % (20-40); MANUAL DIFF FLAG SCAN; Mean Corpuscular Hemoglobin 24.9 pg (27.0-33.0); Mean Corpuscular Volume 80.3 fL (80.0-98.0); Mean Platelet Volume 11.2 fL (9.4-12.3); Monocytes Absolute Auto 0.8 X10*3/uL (0.1-1.2); Monocytes Percent Auto 21.8 % (2-11); Neutrophils Absolute Auto 2.3 x10*3/uL (2.0-8.3); Neutrophils Percent Auto 60.4 % (45-73); Red Blood Count 4.06 X10*6/uL (4.20-5.50); Red Cell Distribution Width 20.4 % (11.0-16.0); SCAN SMEAR FLAG 1; White Blood Count 3.8 X10*3/uL (4.8-10.8)
[2021-11-27 07:18] LABS: Platelet Count 66 X10*3/uL (160-400)
[2021-11-27 07:19] LABS: Magnesium 1.5 mg/dL (1.6-2.6)
[2021-11-27 07:21] LABS: Anion Gap 13 (12-20); Blood Urea Nitrogen 8 mg/dL (9-16); Carbon Dioxide 28 mmol/L (22-29); Chloride 98 mmol/L (96-108); Creatinine Clr Calc Pharmacy 95.8; Estimated Glomerular Filt Rate > 60; Glucose Random 87 mg/dL (60-115); Potassium 3.7 mmol/L (3.3-5.1); Sodium 135 mmol/L (135-145)
[2021-11-27 07:52] LABS: SLIDE REVIEW VERIFIED
[2021-11-27 08:02] VITALS: BP 131/88; PULSE 96; RESP 18; TEMP 36.8; O2SAT 97
[2021-11-27] MEDS: Naltrexone HCl 50 MG TABLET PO (08:18)
[2021-11-27] MEDS: Spironolactone 25 MG TABLET 50 MG PO (08:18)
[2021-11-27] MEDS: Multivitamin TABLET 1 TAB PO (08:18)
[2021-11-27] MEDS: Magnesium Oxide 400 MG TABLET PO ×2 (08:18→16:38)
[2021-11-27] MEDS: Thiamine HCL 100 MG TABLET PO (08:18)
[2021-11-27] MEDS: nadoloL 20 MG TABLET PO (08:18)
[2021-11-27] MEDS: Omeprazole 20 MG CAPSULE.DR PO ×2 (08:18→20:39)
[2021-11-27] MEDS: PHENobarbitaL 30 MG TABLET PO ×2 (08:18→20:39)
[2021-11-27] MEDS: Furosemide 20 MG TABLET PO (08:18)
[2021-11-27] MEDS: Folic Acid 1 MG TABLET PO (08:18)
[2021-11-27] MEDS: Venlafaxine HCl ER 37.5 MG CAP.ER.24H PO (08:18)
[2021-11-27] MEDS: Magnesium Sulfate/H2O 2 GM/50 ML PIGGYBACK IV (08:19)
[2021-11-27] MEDS: cefTRIAXone sodium 1 GM in 0.9 % Sodium Chloride 50 ML IV (10:17)
[2021-11-27 11:01] VITALS: BP 118/67; PULSE 76; RESP 16; TEMP 36.6; O2SAT 94
--- NOTE | 2021-11-27 12:10 | HO.PM.IMPN ---
Subjective Subjective Date of Service: 11/27/21 Review of Systems Follow-up alcohol abuse/withdrawal Still feeling shaky and unsteady Denies nausea, vomiting, diarrhea Physical Exam Vital Signs: Vital Signs: Last Vital Signs Temp 98 F 11/27/21 11:01 Pulse 76 11/27/21 11:01 Resp 16 11/27/21 11:01 BP 118/67 11/27/21 11:01 Pulse Ox 94 11/27/21 11:01 O2 Del Method 11/27/21 08:02 BMI result Body Mass Index 42.7 Appearing in no acute distress lung sounds are clear to auscultation heart regular rate rhythm, clear S1, S2 positive bowel sounds, abdomen is soft, nontender neuro patient is alert x3, no focal deficits Mild hand tremors noted Objective Data Active Medications Acetaminophen (Acetaminophen 325 Mg Tablet) 650 mg PO Q6H PRN PRN Reason: Pain, Mild (Pain Scale 1-3) Last Admin: 11/26/21 20:26 Dose: 650 mg Documented By: LANA Folic Acid (Folic Acid 1 Mg Tablet) 1 mg PO DAILY [facility] Last Admin: 11/27/21 08:18 Dose: 1 mg Documented By: MIL Furosemide (Furosemide 20 Mg Tablet) 20 mg PO DAILY [facility]; Protocol Last Admin: 11/27/21 08:18 Dose: 20 mg Documented By: MIL Ceftriaxone Sodium 1 gm/ (Sodium Chloride) 50 mls @ 100 mls/hr IV DAILY [facility] Last Infusion: 11/27/21 11:04 Dose: 0 mls/hr Documented By: MIL Magnesium Oxide (Magnesium Oxide 400 Mg Tablet) 400 mg PO BIDPC [facility] Last Admin: 11/27/21 08:18 Dose: 400 mg Documented By: MIL Melatonin (Melatonin 3 Mg Tablet) 3 mg PO BEDTIME [facility] Last Admin: 11/26/21 20:25 Dose: 3 mg Documented By: LANA Multivitamins/Vitamin C (Multivitamin Tablet) 1 tab PO DAILY [facility] Last Admin: 11/27/21 08:18 Dose: 1 tab Documented By: MIL Nadolol (Nadolol 20 Mg Tablet) 20 mg PO DAILY [facility]; Protocol Last Admin: 11/27/21 08:18 Dose: 20 mg Documented By: MIL Naltrexone HCl (Naltrexone Hcl 50 Mg Tablet) 50 mg PO DAILY [facility] Last Admin: 11/27/21 08:18 Dose: 50 mg Documented By: MIL Omeprazole (Omeprazole 20 Mg Capsule.Dr) 20 mg PO BID [facility] Last Admin: 11/27/21 08:18 Dose: 20 mg Documented By: MIL Ondansetron HCl (Ondansetron Hcl 4 Mg/2 Ml Vial) 4 mg IVPUSH Q8H PRN PRN Reason: Nausea and Vomiting Last Admin: 11/26/21 05:23 Dose: 4 mg Documented By: ANJEL Pantoprazole Sodium (Pantoprazole Sodium 40 Mg/10 Ml Vial) 40 mg IVPUSH BID@0630,1630 [facility] Last Admin: 11/27/21 05:44 Dose: 40 mg Documented By: ISAÍAS Pharmacy Consult (Consult Rx Perform Med Rec) 1 each MISCELLANE ONCE PRN PRN Reason: Consult order Pharmacy Consult (Consult Rx Etoh Phenob Po Only) 1 each MISCELLANE ONCE PRN; Protocol PRN Reason: Consult order Phenobarbital (Phenobarbital 30 Mg Tablet) 30 mg PO BID [facility]; Protocol Stop: 11/27/21 21:01 Last Admin: 11/27/21 08:18 Dose: 30 mg Documented By: MIL Phenobarbital (Phenobarbital 15 Mg Tablet) 15 mg PO BID [facility]; Protocol Stop: 11/29/21 21:01 Phenobarbital (Phenobarbital 15 Mg Tablet) 15 mg PO DAILY [facility]; Protocol Stop: 12/01/21 09:01 Sodium Chloride (0.9 % Sodium Chloride Flush 3 Ml Syringe) 3 ml IVFLUSH [facility] Last Admin: 11/27/21 08:19 Dose: 3 ml Documented By: MIL Spironolactone (Spironolactone 25 Mg Tablet) 50 mg PO DAILY [facility]; Protocol Last Admin: 11/27/21 08:18 Dose: 50 mg Documented By: MIL Thiamine HCl (Thiamine Hcl 100 Mg Tablet) 100 mg PO DAILY [facility] Last Admin: 11/27/21 08:18 Dose: 100 mg Documented By: MIL Venlafaxine HCl (Venlafaxine Hcl Er 37.5 Mg Cap.Er.24h) 37.5 mg PO DAILY [facility] Last Admin: 11/27/21 08:18 Dose: 37.5 mg Documented By: MIL Labs CBC & Chem 7: 11/27/21 06:51 11/27/21 06:51 Labs: Laboratory Results - last 24 hr 11/27/21 11/27/21 11/27/21 06:51 06:51 06:51 MCV 80.3 MCH 24.9 L MCHC 31.0 RDW 20.4 H Plt Count 66 L MPV 11.2 Immature Gran % (Auto) 0.3 Neut % (Auto) 60.4 Lymph % (Auto) 13.3 L [place] % (Auto) 21.8 H Eos % (Auto) 3.7 Baso % (Auto) 0.5 Lymph # (Auto) 0.5 L [place] # (Auto) 0.8 Eos # (Auto) 0.1 Baso # (Auto) 0.0 Abs Immat Gran (auto) 0.01 Absolute Neuts (auto) 2.3 Absolute Nucleated RBC 0.000 Nucleated RBC % (auto) 0.0 Smear Tech's Comments VERIFIED Anion Gap 13 Estim Creat Clear Calc 95.8 Estimated GFR > 60 Random Glucose 87 Calcium 8.0 L Magnesium 1.5 L Microbiology Microbiology Results: Microbiology 11/25/21 Unknown Urine Culture - Final Urine clean catch - Urine lopez top Assessment and Plan (1) Acute GI bleeding: Status: Acute Plan 56-year-old woman with history of alcoholism presents to the ER with nausea, bloody vomitus and bloody diarrhea. Of note GI bleed acute No active bleeding History of portal hypertension, varices, cirrhosis Likely secondary to alcohol abuse GI consultation recommend holding off on EGD/colonoscopy for now, check C diff in stool studies, ppi, Carafate, zinc, multivitamin Hypomagnesemia Secondary to alcohol abuse Repleted with 4 mg of IV magnesium in the ED Daily magnesium 400 mg b.i.d. She has pretty much required IV magnesium every day, will give another dose of 2 mg today Transaminitis Secondary to liver cirrhosis with portal hypertension Follow-up LFTs Microcytic Seems mostly chronic Likely secondary to alcohol use Follow CBC UTI Culture shows greater than 100,000 mixed bacteria Complete 1 more day of Rocephin to complete 3 days Alcohol abuse Continue phenobarbital protocol Discussed the importance of cessation Thiamine, folic acid, multivitamin DVT prophylaxis with mechanical compression boots Attending Dr. Vazquez Full code Disposition patient reports that she is homeless, case management consultation for services and referrals Patient requires continued hospitalization for treatment of GI bleed secondary to alcohol abuse Quality Stroke Does the patient have a stroke diagnosis?: No VTE Prior VTE?: No VTE Risk Level:: Medical - moderate - high VTE Device Contraindication: N/A - Device Ordered VTE Drug Contraindication: Treatment Not Indicated
--- NOTE | 2021-11-27 14:18 | MHC.CM.PN ---
CM met with Patient at bedside and addressed IMM with her, providing her with the original and a copy will be placed on the chart. Patient had been living with her Boyfriend in his car but they are now, on the outs. Patient would be interested in repairing the relationship with her Boyfriend but she does not know his new phone number and the one listed here is not working. CM has provided Patient with resources on shelters and community resources. Patient is asking about STR and CM explained that the MD would order a PT eval if MD feels it is appropriate. Patient has put in an application to the [place] [employer] also. Patient has received Pfizer/Covid vax X3 and her PCP is from [facility] in [place] (Dr. Yahaira Dove). CM will follow.
[2021-11-27] MEDS: Sucralfate 1 GM TABLET PO (16:38)
[2021-11-27 17:24] VITALS: BP 139/49; PULSE 57; RESP 18; TEMP 36.6; O2SAT 96
[2021-11-27] MEDS: Melatonin 3 MG TABLET PO (20:39)
[2021-11-27 21:29] VITALS: BP 119/57; PULSE 65; RESP 15; TEMP 36.9; O2SAT 95
--- NOTE | 2021-11-27 23:49 | PC.NURSE ---
Patient alert, oriented. Offers no complaints at this time. Bedtime medications administered, assisted patient to bedside commode.
[2021-11-28] VITALS (9 sets, daily range): BP systolic 106–135; BP diastolic 52–68; PULSE 54–64; RESP 11–18; TEMP 36.2–36.8; O2SAT 93–97; BMI 43.1
--- NOTE | 2021-11-28 | ECG_ITS ---
Test Reason : qt check Blood Pressure : / mmHG Vent. Rate : 055 BPM Atrial Rate : 055 BPM P-R Int : 144 ms QRS Dur : 082 ms QT Int : 494 ms P-R-T Axes : 050 026 059 degrees QTc Int : 472 ms Sinus bradycardia Otherwise normal ECG When compared with ECG of 25-NOV-2021 14:01, Premature supraventricular complexes are no longer Present Vent. rate has decreased BY 36 BPM Criteria for Septal infarct are no longer Present QT has shortened Referred By: Heaven Núñez Electronically Signed By:TINY GOLDMAN
[2021-11-28 07:43] LABS: Alanine Aminotransferase 16 U/L (0-31); Albumin Level 3.1 g/dL (3.5-5.0); Alkaline Phosphatase 82 U/L (39-117); Anion Gap 14 (12-20); Aspartate Amino Transferase 40 U/L (5-31); Bilirubin Direct 0.9 mg/dL (0.0-0.5); Bilirubin Total 1.4 mg/dL (0.0-1.0); Blood Urea Nitrogen 8 mg/dL (9-16); Calcium 8.5 mg/dL (8.4-10.2); Carbon Dioxide 28 mmol/L (22-29); Chloride 99 mmol/L (96-108); Creatinine Clr Calc Pharmacy 94.4; Estimated Glomerular Filt Rate > 60; Glucose Random 91 mg/dL (60-115); Magnesium 1.5 mg/dL (1.6-2.6); Sodium 137 mmol/L (135-145); Total Protein 6.4 g/dL (6.5-8.0)
[2021-11-28] MEDS: cefTRIAXone sodium 1 GM in 0.9 % Sodium Chloride 50 ML IV (08:21)
[2021-11-28] MEDS: Sucralfate 1 GM TABLET PO ×2 (08:24→16:36)
[2021-11-28] MEDS: Thiamine HCL 100 MG TABLET PO (08:24)
[2021-11-28] MEDS: Omeprazole 20 MG CAPSULE.DR PO ×2 (08:25→20:06)
[2021-11-28] MEDS: Magnesium Oxide 400 MG TABLET PO ×2 (08:25→16:36)
[2021-11-28] MEDS: Naltrexone HCl 50 MG TABLET PO (08:25)
[2021-11-28] MEDS: Folic Acid 1 MG TABLET PO (08:25)
[2021-11-28] MEDS: Multivitamin TABLET 1 TAB PO (08:25)
[2021-11-28] MEDS: PHENobarbitaL 15 MG TABLET PO ×2 (08:26→20:06)
[2021-11-28] MEDS: Spironolactone 25 MG TABLET 50 MG PO (08:27)
[2021-11-28] MEDS: nadoloL 20 MG TABLET PO (08:28)
[2021-11-28] MEDS: 0.9 % Sodium Chloride Flush 3 ML SYRINGE IVFLUSH ×2 (08:28→17:27)
[2021-11-28] MEDS: ondansetron HCL 4 MG/2 ML VIAL IVPUSH (08:31)
[2021-11-28] MEDS: Furosemide 20 MG TABLET PO (10:33)
[2021-11-28] MEDS: Venlafaxine HCl ER 37.5 MG CAP.ER.24H PO (10:33)
[2021-11-28] MEDS: Magnesium Sulfate/H2O 2 GM/50 ML PIGGYBACK IV (10:33)
--- NOTE | 2021-11-28 15:23 | MHC.RECOVRN ---
T/W met w/ pt, pt alert and oriented when entered room. Pt reports drinking daily for 10 plus years. Pt reports daily ETOH use of 506 mixed drinks and a few shots. Pt reporst last use was day came to the ED. Pt states 10 plus years ago went to treatment in [place] and a residential sober living home in [place]. Pt states in the past, over 10 years ago, pt reports tried Campral for AUD and continued to drink on the medication and did not find it helpful. Pt reports being unstalbly housed with partner for 14 years. Pt states family history of alcohol use, which feels like normalized drinking. Pt reports no contact with family members for some time. Pt reports for past four months living out of a car. Pt reports javier currently is looking for housing as both parther and pt have monthly income via [employer]. T/W and pt discussed recovery resources and harm reduction. Pt interested in possibly continuing Naltrexone at discharge. T/W will drop off resource packet for pt to review per discussion. Pt verbalized understanding and agreed with plan of care.
--- NOTE | 2021-11-28 16:15 | PM.DS ---
DS: Providers Provider Date of Service: 11/28/21 Date of admission: 11/25/21 15:31 Date of discharge: 11/28/21 Primary care physician: NEVILLE Garrison Consults: 11/25/21 16:03 Consult to Gastroenterology Routine Consulting Provider: Mg Nichols Reason for consultation: bloody vomitus, rectal bleeding Has provider been notified: No 11/28/21 08:23 Consult to Care Team Routine Comment: Reason for consultation: etoh Attending physician on discharge: Ruben Vazquez Discharging clinician: Heaven Núñez DS: Diagnosis Discharge Diagnosis (1) Acute GI bleeding: Status: Acute (2) Acute alcoholic gastritis: Status: Acute (3) Hypomagnesemia: Status: Acute (4) QT prolongation: Status: Acute DS: Summary Hospital Course Hospital Course: From H&P on day of admission 48-year-old woman with history of alcohol abuse presented to the ER with complaints of nausea, vomiting and diarrhea.? She reports blood in her vomitus and describes it as blood tinged.? She denies any blood in her stool reports as being yellow in color.? She lives with her significant other and drinks at least 4 nips of vodka a day and mixed vodka drink.? She has been doing this for many years she denied any fever, chills, recent travel, sick contacts.? She is very shaky and tremulous.? Her magnesium was noted to be 1.0, she was given a total 4 mg of IV magnesium.? She was started on phenobarbital protocol, given 1 liter of IV fluids, pepcid.? Should be admitted for further management and treatment of GI bleed and alcohol withdrawal. admitted with blood-tinged emesis. Possibly secondary to Alisia-Huffman tear. No subsequent episodes of bleeding was noted History of portal hypertension, varices, cirrhosis Seen by GI, no indication for EGD or colonoscopy at this time. No further nausea or vomiting. Tolerating diet. H/H has remained stable Hypomagnesemia/ prolonged QTC Secondary to alcohol abuse Repleted with both IV and oral magnesium. QTC improved. Magnesium improving. Continue outpatient magnesium supplementation Transaminitis Secondary to liver cirrhosis with portal hypertension. LFTs chronically elevated, trending down Microcytic anemia Seems mostly chronic Likely secondary to alcohol use H/H has remained stable UTI Culture shows greater than 100,000 mixed bacteria. Completed 3 days of IV ceftriaxone. No further antibiotic treatment is indicated Alcohol use Disorder with acute alcohol withdrawal. Patient was initially started on phenobarbital protocol. She was supplemented with oral thiamine and folate. She was seen in evaluation by recovery/care team. She was given appropriate resources. Complete alcohol cessation was recommended She was seen by Physical therapy who recommended outpatient physical therapy. Can request outpatient physical therapy via PCP when patient has stable living situation Time Spent with Patient Time attestation: Total time spent providing and/or coordinating discharge services: Discharge coordination time: Greater than 30 minutes Quality: Safe Use of Opioids Does Pt have an Active Cancer Diagnosis on the Problem List?: No Quality: Stroke Does the patient have a stroke diagnosis?: No Physical Exam Vital Signs: Vital Signs: Last Vital Signs Temp 97.4 F 11/28/21 15:55 Pulse 58 11/28/21 15:55 Resp 17 11/28/21 15:55 BP 135/64 11/28/21 15:55 Pulse Ox 94 11/28/21 15:55 O2 Del Method 11/28/21 15:55 BMI result Body Mass Index 43.1 Const: General: cooperative, comfortable, alert and awake Nutritional Appearance: obese Orientation/consciousness: patient oriented x3 Resp: Effort & Inspection: normal respiratory effort and able to speak in complete sentences Auscultation: clear to auscultation bilaterally Cardio: Rate: regular rate Heart sounds: S1 normal heart sound present and S2 normal heart sound present GI: Inspection: No distended Palpation (GI): Soft to palpation Neuro: General: patient oriented x3 and CN's II-XI intact bilaterally Extrem: General: Yes no pedal edema DS: Data Data Completed and Pending Completed studies during hospitalization [Text1]: Procedures Detoxification Services for Substance Abuse Treatment (10/18/21) Inspection of Upper Intestinal Tract, Via Natural or Artificial Opening Endoscopic (10/18/21) Labs on day of discharge: Laboratory Results - last 24 hr 11/28/21 06:36 Sodium 137 Potassium 4.0 Chloride 99 Carbon Dioxide 28 Anion Gap 14 BUN 8 L Creatinine 0.66 Estim Creat Clear Calc 94.4 Estimated GFR > 60 Random Glucose 91 Calcium 8.5 D Magnesium 1.5 L Total Bilirubin 1.4 H Direct Bilirubin 0.9 H AST 40 H D ALT 16 Alkaline Phosphatase 82 Total Protein 6.4 L Albumin 3.1 L Discharge Plan Discharge Patient Disposition: Home, Self-Care Discharge Diagnosis: alcohol withdrawal low magnesium Referrals: Yahaira Dove FNP [Primary Care Provider] - 1 Week Discharge Medications: Continued venlafaxine 37.5 mg capsule,extended release 24hr 1 cap PO DAILY melatonin 3 mg tablet 1 tab PO BEDTIME pantoprazole 40 mg tablet,delayed release (DR/EC) 1 tab PO BID Qty: 60 0RF naltrexone 50 mg tablet 1 tab PO DAILY nadolol 20 mg tablet 1 tab PO DAILY folic acid 1 mg tablet 1 tab PO DAILY furosemide 20 mg tablet 1 tab PO DAILY spironolactone 50 mg tablet 1 tab PO DAILY magnesium oxide 400 mg (241.3 mg magnesium) tablet 400 mg PO DAILY Discharge Orders: Discharge Order (Routine); Ordered 11/28/21 Ordered By: Heaven Núñez Activity on Discharge: As tolerated Stand Alone Forms: Patient Portal Discharge page Care Plan Goals: see below Health Concerns: Alcohol use disorder with acute alcohol withdrawal Low magnesium Plan of Treatment: Recommend to avoid alcohol use Take all medications as prescribed Call to schedule follow-up appointment with PCP Assessment: See discharge summary
[2021-11-28 16:56] LABS: Magnesium 1.7 mg/dL (1.6-2.6)
--- NOTE | 2021-11-28 18:14 | P.PNIM_ITS ---
Subjective Subjective Date of Service: 11/28/21 Interval History: Seen and examined this morning Follow-up for alcohol withdrawal Plan to discharge today however does not feel comfortable leaving the hospital at this time Review of Systems Review of Systems: Yes all other systems are reviewed and are negative Constitutional Constitutional: Denies chills and Denies fever(s) ENT Ears, Nose, Mouth, and Throat: Denies dizziness Cardiovascular Cardiovascular: Denies chest pain, Denies palpitations and Denies dyspnea Respiratory Respiratory: Denies cough and Denies dyspnea Gastrointestinal Gastrointestinal: Denies abdominal pain, Denies nausea and Denies vomiting Neurologic Neurologic: Denies dizziness Endocrine Endocrine: Denies palpitations Physical Exam Vital Signs: Vital Signs: Last Vital Signs Temp 97.4 F 11/28/21 15:55 Pulse 58 11/28/21 15:55 Resp 17 11/28/21 15:55 BP 135/64 11/28/21 15:55 Pulse Ox 94 11/28/21 15:55 O2 Del Method 11/28/21 15:55 BMI result Body Mass Index 43.1 Const: General: comfortable, no acute distress, alert and awake Nutritional Appearance: obese Orientation/consciousness: patient oriented x3 Resp: Effort & Inspection: normal respiratory effort and able to speak in complete sentences Cardio: Rate: bradycardic Heart sounds: S1 normal heart sound present and S2 normal heart sound present GI: Inspection: No distended Palpation (GI): Soft to palpation and nontender Neuro: General: patient oriented x3 and CN's II-XI intact bilaterally Objective Data Active Medications Acetaminophen (Acetaminophen 325 Mg Tablet) 650 mg PO Q6H PRN PRN Reason: Pain, Mild (Pain Scale 1-3) Last Admin: 11/26/21 20:26 Dose: 650 mg Documented By: LANA Folic Acid (Folic Acid 1 Mg Tablet) 1 mg PO DAILY [facility] Last Admin: 11/28/21 08:25 Dose: 1 mg Documented By: VINCENT Furosemide (Furosemide 20 Mg Tablet) 20 mg PO DAILY [facility]; Protocol Last Admin: 11/28/21 10:33 Dose: 20 mg Documented By: VINCENT Comments: bp-108/63 Magn[facility] Oxide ([facility] 400 Mg [facility]) [facility] Last Admin: 11/28/21 16:36 Dose: 400 mg Documented By: JM Melatonin (Melatonin 3 Mg Tablet) 3 mg PO BEDTIME [facility] Last Admin: 11/27/21 20:39 Dose: 3 mg Documented By: KURT Multivitamins/Vitamin C (Multivitamin Tablet) 1 tab PO DAILY [facility] Last Admin: 11/28/21 08:25 Dose: 1 tab Documented By: VINCENT Nadolol (Nadolol 20 Mg Tablet) 20 mg PO DAILY [facility]; Protocol Last Admin: 11/28/21 08:28 Dose: 20 mg Documented By: VINCENT Comments: BP-112/57, HR-62 Naltrexone HCl (Naltrexone Hcl 50 Mg Tablet) 50 mg PO DAILY [facility] Last Admin: 11/28/21 08:25 Dose: 50 mg Documented By: VINCENT Omeprazole (Omeprazole 20 Mg Capsule.Dr) 20 mg PO BID [facility] Last Admin: 11/28/21 08:25 Dose: 20 mg Documented By: VINCENT Ondansetron HCl (Ondansetron Hcl 4 Mg/2 Ml Vial) 4 mg IVPUSH Q8H PRN PRN Reason: Nausea and Vomiting Last Admin: 11/28/21 08:31 Dose: 4 mg Documented By: VINCENT Pharmacy Consult (Consult Rx Perform Med Rec) 1 each MISCELLANE ONCE PRN PRN Reason: Consult order Pharmacy Consult (Consult Rx Etoh Phenob Po Only) 1 each MISCELLANE ONCE PRN; Protocol PRN Reason: Consult order Phenobarbital (Phenobarbital 15 Mg Tablet) 15 mg PO BID [facility]; Protocol Stop: 11/29/21 21:01 Last Admin: 11/28/21 08:26 Dose: 15 mg Documented By: VINCENT Comments: BP-112/57, HR-62 Phenobarbital (Phenobarbital 15 Mg Tablet) 15 mg PO DAILY [facility]; Protocol Stop: 12/01/21 09:01 Sodium Chloride (0.9 % Sodium Chloride Flush 3 Ml Syringe) [facility] Last Admin: 11/28/21 17:27 Dose: 3 ml Documented By: JM Spironolactone (Spironolactone 25 Mg Tablet) 50 mg PO DAILY [facility]; Protocol Last Admin: 11/28/21 08:27 Dose: 50 mg Documented By: VINCENT Comments: BP-112/57, HR-62 Sucralfate (Sucralfate 1 Gm Tablet) 1 gm PO BIDAC [facility] Last Admin: 11/28/21 16:36 Dose: 1 gm Documented By: JM Thiamine HCl (Thiamine Hcl 100 Mg Tablet) 100 mg PO DAILY [facility] Last Admin: 11/28/21 08:24 Dose: 100 mg Documented By: VINCENT Venlafaxine HCl (Venlafaxine Hcl Er 37.5 Mg Cap.Er.24h) 37.5 mg PO DAILY [facility] Last Admin: 11/28/21 10:33 Dose: 37.5 mg Documented By: VINCENT Labs CBC & Chem 7: 11/27/21 06:51 11/28/21 06:36 Labs: Laboratory Results - last 24 hr 11/28/21 11/28/21 06:36 16:15 Anion Gap 14 Estim Creat Clear Calc 94.4 Estimated GFR > 60 Random Glucose 91 Calcium 8.5 D Magnesium 1.5 L 1.7 Total Bilirubin 1.4 H Direct Bilirubin 0.9 H AST 40 H D ALT 16 Alkaline Phosphatase 82 Total Protein 6.4 L Albumin 3.1 L Assessment and Plan (1) Alcohol withdrawal: Status: Acute Plan 56-year-old woman with history of alcoholism presents to the ER with nausea, bloody vomitus and bloody diarrhea. Of note Presented with some blood in emeisis no further episodes History of portal hypertension, varices, cirrhosis Likely secondary to alcohol abuse GI consultation recommend holding off on EGD/colonoscopy for now, check C diff in stool studies, ppi, Carafate, zinc, multivitamin Hypomagnesemia with proloned QTC Secondary to alcohol abuse Status post IV replacement EKG repeated, improvement in QTC continue po replacment Transaminitis Secondary to liver cirrhosis with portal hypertension chrnonic, trending down Microcytic anemia Seems mostly chronic Likely secondary to alcohol use Follow CBC UTI Culture shows greater than 100,000 mixed bacteria s/p 3 days IV abx Alcohol abuse Continue phenobarbital protocol Discussed the importance of cessation Thiamine, folic acid, multivitamin seen by care team DVT prophylaxis with mechanical compression boots Attending Dr. Vazquez Full code Disposition patient reports that she is homeless, case management consultation for services and referrals Patient requires continued hospitalization for treatment of GI bleed secondary to alcohol abuse Quality Stroke Does the patient have a stroke diagnosis?: No VTE Prior VTE?: No VTE Risk Level:: Medical - moderate - high VTE Device Contraindication: N/A - Device Ordered VTE Drug Contraindication: Treatment Not Indicated
[2021-11-28] MEDS: Melatonin 3 MG TABLET PO (20:06)
[2021-11-29] VITALS (7 sets, daily range): BP systolic 104–134; BP diastolic 54–74; PULSE 56–80; RESP 15–20; TEMP 36.2–37; O2SAT 94–97
[2021-11-29] MEDS: 0.9 % Sodium Chloride Flush 3 ML SYRINGE IVFLUSH ×4 (00:53→21:45)
[2021-11-29] MEDS: Furosemide 20 MG TABLET PO (08:36)
[2021-11-29] MEDS: PHENobarbitaL 15 MG TABLET PO ×2 (08:36→21:43)
[2021-11-29] MEDS: Venlafaxine HCl ER 37.5 MG CAP.ER.24H PO (08:37)
[2021-11-29] MEDS: Spironolactone 25 MG TABLET 50 MG PO (08:37)
[2021-11-29] MEDS: Folic Acid 1 MG TABLET PO (08:37)
[2021-11-29] MEDS: Omeprazole 20 MG CAPSULE.DR PO ×2 (08:37→21:43)
[2021-11-29] MEDS: Thiamine HCL 100 MG TABLET PO (08:37)
[2021-11-29] MEDS: nadoloL 20 MG TABLET PO (08:37)
[2021-11-29] MEDS: Sucralfate 1 GM TABLET PO ×2 (08:37→15:32)
[2021-11-29] MEDS: Multivitamin TABLET 1 TAB PO (08:37)
[2021-11-29] MEDS: Magnesium Oxide 400 MG TABLET PO ×2 (08:37→17:50)
[2021-11-29] MEDS: Naltrexone HCl 50 MG TABLET PO (08:37)
--- NOTE | 2021-11-29 09:11 | MHC.CM.PN ---
Addendum entered by Lesia Gooden 11/29/21 16:02: The patient is appealing discharge. IMM and Detailed notice of discharge have been provided to the patient. The [facility] was informed of the Appeal. The referral will need to be sent if the patient does not discharge tomorrow. Original Note: IMM 11/29/21 Female 56 DX ETOH She is discharged today. Prior to hospitalization, Patient was living in a car with her boyfriend. He is [place]. Met with patient to review discharge plan. She has not heard from her boyfriend in days. She states that she has not been able to contact him by phone. She thinks that he may have bought a new phone. T/W suggested the [facility], in [place] as a dc option. Patient agreed to have CM call for a bed. T/W spoke with Racquel. Racquel is reviewing and will call CM to follow up on referral.
--- NOTE | 2021-11-29 13:58 | P.PNIM_ITS ---
Subjective Subjective Date of Service: 11/29/21 Interval History: seen and examined this morning follow up for alcohol withdrawal no alcohol withdrawal symptoms this morning No abdominal pain, nausea, vomiting no fever, chills Does not want to leave the hospital Review of Systems Review of Systems: Yes all other systems are reviewed and are negative Constitutional Constitutional: Denies chills and Denies fever(s) ENT Ears, Nose, Mouth, and Throat: Denies dizziness Cardiovascular Cardiovascular: Denies chest pain, Denies palpitations and Denies dyspnea Respiratory Respiratory: Denies cough and Denies dyspnea Gastrointestinal Gastrointestinal: Denies abdominal pain, Denies diarrhea, Denies nausea and Denies vomiting Neurologic Neurologic: Denies dizziness Endocrine Endocrine: Denies palpitations Physical Exam Vital Signs: Vital Signs: Last Vital Signs Temp 97.2 F 11/29/21 11:39 Pulse 65 11/29/21 11:39 Resp 20 11/29/21 11:39 BP 104/66 11/29/21 11:39 Pulse Ox 95 11/29/21 11:39 O2 Del Method 11/29/21 11:39 BMI result Body Mass Index 43.1 Const: General: cooperative, comfortable, no acute distress, alert and awake Nutritional Appearance: obese Orientation/consciousness: patient oriented x3 Resp: Effort & Inspection: normal respiratory effort and able to speak in complete sentences Auscultation: clear to auscultation bilaterally Cardio: Rate: regular rate and bradycardic Heart sounds: S1 normal heart s ound present and S2 normal heart sound present GI: Inspection: No distended Palpation (GI): Soft to palpation and nonte nder Neuro: General: patient oriented x3 and CN's II-XI intact bilaterally Extrem: General: Yes no pedal edema Objective Data Active Medications Acetaminophen (Acetaminophen 325 Mg Tablet) 650 mg PO Q6H PRN PRN Reason: Pain, Mild (Pain Scale 1-3) Last Admin: 11/26/21 20:26 Dose: 650 mg Documented By: LANA Folic Acid (Folic Acid 1 Mg Tablet) 1 mg PO DAILY [facility] Last Admin: 11/29/21 08:37 Dose: 1 mg Documented By: SARI Furosemide (Furosemide 20 Mg Tablet) 20 mg PO DAILY [facility]; Protocol Last Admin: 11/29/21 08:36 Dose: 20 mg Documented By: SARI Magnesium Oxide (Magnesium Oxide 400 Mg Tablet) 400 mg PO BIDPC [facility] Last Admin: 11/29/21 08:37 Dose: 400 mg Documented By: SARI Melatonin (Melatonin 3 Mg Tablet) 3 mg PO BEDTIME [facility] Last Admin: 11/28/21 20:06 Dose: 3 mg Documented By: TIMA Multivitamins/Vitamin C (Multivitamin Tablet) 1 tab PO DAILY [facility] Last Admin: 11/29/21 08:37 Dose: 1 tab Documented By: SARI Nadolol (Nadolol 20 Mg Tablet) 20 mg PO DAILY [facility]; Protocol Last Admin: 11/29/21 08:37 Dose: 20 mg Documented By: SARI Naltrexone HCl (Naltrexone Hcl 50 Mg Tablet) 50 mg PO DAILY [facility] Last Admin: 11/29/21 08:37 Dose: 50 mg Documented By: SARI Omeprazole (Omeprazole 20 Mg Capsule.Dr) 20 mg PO BID [facility] Last Admin: 11/29/21 08:37 Dose: 20 mg Documented By: SARI Ondansetron HCl (Ondansetron Hcl 4 Mg/2 Ml Vial) 4 mg IVPUSH Q8H PRN PRN Reason: Nausea and Vomiting Last Admin: 11/28/21 08:31 Dose: 4 mg Documented By: VINCENT Pharmacy Consult (Consult Rx Perform Med Rec) 1 each MISCELLANE ONCE PRN PRN Reason: Consult order Pharmacy Consult (Consult Rx Etoh Phenob Po Only) 1 each MISCELLANE ONCE PRN; Protocol PRN Reason: Consult order Phenobarbital (Phenobarbital 15 Mg Tablet) 15 mg PO BID [facility]; Protocol Stop: 11/29/21 21:01 Last Admin: 11/29/21 08:36 Dose: 15 mg Documented By: SARI Phenobarbital (Phenobarbital 15 Mg Tablet) 15 mg PO DAILY [facility]; Protocol Stop: 12/01/21 09:01 Sodium Chloride (0.9 % Sodium Chloride Flush 3 Ml Syringe) 3 ml IVFLUSH [facility] Last Admin: 11/29/21 08:38 Dose: 3 ml Documented By: SARI Spironolactone (Spironolactone 25 Mg Tablet) 50 mg PO DAILY [facility]; Protocol Last Admin: 11/29/21 08:37 Dose: 50 mg Documented By: SARI Sucralfate (Sucralfate 1 Gm Tablet) 1 gm PO BIDAC [facility] Last Admin: 11/29/21 08:37 Dose: 1 gm Documented By: SARI Thiamine HCl (Thiamine Hcl 100 Mg Tablet) 100 mg PO DAILY [facility] Last Admin: 11/29/21 08:37 Dose: 100 mg Documented By: SARI Venlafaxine HCl (Venlafaxine Hcl Er 37.5 Mg Cap.Er.24h) 37.5 mg PO DAILY [facility] Last Admin: 11/29/21 08:37 Dose: 37.5 mg Documented By: SARI Labs CBC & Chem 7: 11/27/21 06:51 11/28/21 06:36 Labs: Laboratory Results - last 24 hr 11/28/21 16:15 Magnesium 1.7 Assessment and Plan (1) Acute alcoholic gastritis: Status: Acute (2) Alcohol withdrawal: Status: Acute (3) Hypomagnesemia: Status: Acute (4) QT prolongation: Status: Acute Plan 56-year-old woman with history of alcoholism presents to the ER with nausea, bloody vomitus and bloody diarrhea. Of note Presented with some blood in emesis and heme +stools no further episodes of bleeding History of portal hypertension, varices, cirrhosis Likely secondary to alcohol abuse GI consultation recommend holding off on EGD/colonoscopy for now, ppi, Carafate stool studies ordered but no diarrhea. Hypomagnesemia with proloned QTC Secondary to alcohol abuse Status post IV replacement EKG repeated, improvement in QTC continue po replacement Transaminitis Secondary to liver cirrhosis chronic, trending down Microcytic anemia Seems mostly chronic Likely secondary to alcohol use Follow CBC Thrombocytopenia chronic and related to underlying liver cirrhosis UTI Culture shows greater than 100,000 mixed bacteria s/p 3 days IV abx Alcohol use disorder with alcohol withdrawal no evidence of withdrawal at this time Continue phenobarbital protocol Discussed the importance of alcohol cessation Cotninue Thiamine, folic acid, multivitamin seen by care team-resources provided DVT prophylaxis with mechanical compression boots Attending Dr. Vazquez Full code Disposition patient reports that she is homeless. Pt appealing discharge. has bed offer at [facility], but pt has declined Quality Stroke Does the patient have a stroke diagnosis?: No VTE Prior VTE?: No VTE Risk Level:: Medical - moderate - high VTE Device Contraindication: N/A - Device Ordered VTE Drug Contraindication: Treatment Not Indicated
[2021-11-29] MEDS: Acetaminophen 325 MG TABLET 650 MG PO (15:31)
[2021-11-29] MEDS: Melatonin 3 MG TABLET PO (21:43)
[2021-11-30 03:11] VITALS: BP 115/55; PULSE 64; RESP 16; TEMP 37.1; O2SAT 96
[2021-11-30] MEDS: Sucralfate 1 GM TABLET PO ×2 (07:14→16:22)
[2021-11-30 07:49] VITALS: BP 131/56; PULSE 63; RESP 20; TEMP 36.2; O2SAT 94
[2021-11-30] MEDS: 0.9 % Sodium Chloride Flush 3 ML SYRINGE IVFLUSH ×3 (09:08→20:28)
[2021-11-30] MEDS: PHENobarbitaL 15 MG TABLET PO (09:11)
[2021-11-30] MEDS: nadoloL 20 MG TABLET PO (09:12)
[2021-11-30] MEDS: Venlafaxine HCl ER 37.5 MG CAP.ER.24H PO (09:12)
[2021-11-30] MEDS: Naltrexone HCl 50 MG TABLET PO (09:13)
[2021-11-30] MEDS: Folic Acid 1 MG TABLET PO (09:13)
[2021-11-30] MEDS: Omeprazole 20 MG CAPSULE.DR PO ×2 (09:14→20:28)
[2021-11-30] MEDS: Magnesium Oxide 400 MG TABLET PO ×2 (09:14→16:22)
[2021-11-30] MEDS: Multivitamin TABLET 1 TAB PO (09:14)
[2021-11-30] MEDS: Thiamine HCL 100 MG TABLET PO (09:14)
[2021-11-30 12:00] VITALS: BP 101/55; PULSE 63; RESP 20; TEMP 36.3; O2SAT 94
--- NOTE | 2021-11-30 14:12 | P.PNIM_ITS ---
Subjective Subjective Date of Service: 11/30/21 Interval History: seen and examined this morning follow up for alcohol withdrawal. Was discharged but is appealing discharge No overnight events and no specific complaints Review of Systems Review of Systems: Yes all other systems are reviewed and are negative Constitutional Constitutional: Denies chills and Denies fever(s) Cardiovascular Cardiovascular: Denies chest pain, Denies palpitations and Denies dyspnea Respiratory Respiratory: Denies cough and Denies dyspnea Gastrointestinal Gastrointestinal: Reports abdominal pain, Denies diarrhea, Denies nausea and Denies vomiting Endocrine Endocrine: Denies palpitations Physical Exam Vital Signs: Vital Signs: Last Vital Signs Temp 97.3 F 11/30/21 12:00 Pulse 63 11/30/21 12:00 Resp 20 11/30/21 12:00 BP 101/55 L 11/30/21 12:00 Pulse Ox 94 11/30/21 12:00 O2 Del Method 11/30/21 12:00 BMI result Body Mass Index 43.1 Const: General: cooperative, comfortable, no acute distress, alert and awake Nutritional Appearance: obese Orientation/consciousness: patient oriented x3 Resp: Effort & Inspection: normal respiratory effort and able to speak in complete sentences Auscultation: clear to auscultation bilaterally Cardio: Rate: regular rate and bradycardic Heart sounds: S1 normal heart sound present and S2 normal heart sound present GI: Inspection: No distended Palpation (GI): Soft to palpation and nontender Neuro: General: patient oriented x3 and CN's II-XI intact bilaterally Extrem: General: Yes no pedal edema Objective Data Active Medications Acetaminophen (Acetaminophen 325 Mg Tablet) 650 mg PO Q6H PRN PRN Reason: Pain, Mild (Pain Scale 1-3) Last Admin: 11/29/21 15:31 Dose: 650 mg Documented By: JM Folic Acid (Folic Acid 1 Mg Tablet) 1 mg PO DAILY [facility] Last Admin: 11/30/21 09:13 Dose: 1 mg Documented By: OLGA Furosemide (Furosemide 20 Mg Tablet) 20 mg PO DAILY [facility]; Protocol Last Admin: 11/30/21 09:17 Dose: Not Given Documented By: OLGA Non-Admin Reason: Patient Refused [facility] ([facility]) [facility] Last Admin: 11/30/21 09:14 Dose: 400 mg Documented By: OLGA Melatonin (Melatonin 3 Mg Tablet) 3 mg PO BEDTIME [facility] Last Admin: 11/29/21 21:43 Dose: 3 mg Documented By: YAS Multivitamins/Vitamin C (Multivitamin Tablet) 1 tab PO DAILY [facility] Last Admin: 11/30/21 09:14 Dose: 1 tab Documented By: OLGA Nadolol (Nadolol 20 Mg Tablet) 20 mg PO DAILY [facility]; Protocol Last Admin: 11/30/21 09:12 Dose: 20 mg Documented By: OLGA Naltrexone HCl (Naltrexone Hcl 50 Mg Tablet) 50 mg PO DAILY [facility] Last Admin: 11/30/21 09:13 Dose: 50 mg Documented By: OLGA Omeprazole (Omeprazole 20 Mg Capsule.Dr) 20 mg PO BID [facility] Last Admin: 11/30/21 09:14 Dose: 20 mg Documented By: OLGA Ondansetron HCl (Ondansetron Hcl 4 Mg/2 Ml Vial) 4 mg IVPUSH Q8H PRN PRN Reason: Nausea and Vomiting Last Admin: 11/28/21 08:31 Dose: 4 mg Documented By: VINCENT Pharmacy Consult (Consult Rx Perform Med Rec) 1 each MISCELLANE ONCE PRN PRN Reason: Consult order Pharmacy Consult (Consult Rx Etoh Phenob Po Only) 1 each MISCELLANE ONCE PRN; Protocol PRN Reason: Consult order Phenobarbital (Phenobarbital 15 Mg Tablet) 15 mg PO DAILY [facility]; Protocol Stop: 12/01/21 09:01 Last Admin: 11/30/21 09:11 Dose: 15 mg Documented By: OLGA Sodium Chloride (0.9 % Sodium Chloride Flush 3 Ml Syringe) [facility] Last Admin: 11/30/21 09:08 Dose: 3 ml Documented By: OLGA Spironolactone (Spironolactone 25 Mg Tablet) 50 mg PO DAILY [facility]; Protocol Last Admin: 11/30/21 09:17 Dose: Not Given Documented By: OLGA Non-Admin Reason: Patient Refused Sucralfate (Sucralfate 1 Gm Tablet) 1 gm PO BIDAC [facility] Last Admin: 11/30/21 07:14 Dose: 1 gm Documented By: OLGA Thiamine HCl (Thiamine Hcl 100 Mg Tablet) 100 mg PO DAILY [facility] Last Admin: 11/30/21 09:14 Dose: 100 mg Documented By: OLGA Venlafaxine HCl (Venlafaxine Hcl Er 37.5 Mg Cap.Er.24h) 37.5 mg PO DAILY [facility] Last Admin: 11/30/21 09:12 Dose: 37.5 mg Documented By: OLGA Labs CBC & Chem 7: 11/27/21 06:51 11/28/21 06:36 Assessment and Plan (1) Alcohol withdrawal: Status: Acute Plan 56-year-old woman with history of alcoholism presents to the ER with nausea, bloody vomitus and bloody diarrhea. Of note Presented with some blood in emesis and heme +stools no further episodes of bleeding History of portal hypertension, varices, cirrhosis Likely secondary to alcohol abuse GI consultation recommend holding off on EGD/colonoscopy for now, ppi, Carafate stool studies ordered but no diarrhea. Hypomagnesemia with proloned QTC Secondary to alcohol abuse Status post IV replacement EKG repeated, improvement in QTC continue po replacement Transaminitis Secondary to liver cirrhosis chronic, trending down Microcytic anemia Seems mostly chronic Likely secondary to alcohol use Follow CBC Thrombocytopenia chronic and related to underlying liver cirrhosis UTI Culture shows greater than 100,000 mixed bacteria s/p 3 days IV abx Alcohol use disorder with alcohol withdrawal no evidence of withdrawal at this time Continue phenobarbital protocol Discussed the importance of alcohol cessation Cotninue Thiamine, folic acid, multivitamin seen by care team-resources provided -lasix and aldactone placed on hold for soft bp DVT prophylaxis with mechanical compression boots Attending Dr. Covarrubias Full code Disposition patient reports that she is homeless. Pt appealing discharge. has bed offer at [facility], but pt has declined Quality Stroke Does the patient have a stroke diagnosis?: No VTE Prior VTE?: No VTE Risk Level:: Medical - moderate - high VTE Device Contraindication: N/A - Device Ordered VTE Drug Contraindication: Treatment Not Indicated
[2021-11-30 16:00] VITALS: BP 116/59; PULSE 65; PULSE 67; RESP 18; TEMP 36.2; TEMP 36.4; O2SAT 98
[2021-11-30 20:00] VITALS: BP 112/63; PULSE 87; RESP 20; TEMP 36.2; O2SAT 98
[2021-11-30] MEDS: Acetaminophen 325 MG TABLET 650 MG PO (20:27)
[2021-11-30] MEDS: Melatonin 3 MG TABLET PO (20:28)
[2021-12-01] VITALS: PULSE 86; RESP 20
[2021-12-01 03:14] VITALS: BP 126/60; PULSE 62; RESP 18; TEMP 37; O2SAT 95
[2021-12-01] MEDS: Sucralfate 1 GM TABLET PO ×2 (07:26→16:20)
[2021-12-01] MEDS: 0.9 % Sodium Chloride Flush 3 ML SYRINGE IVFLUSH ×3 (07:27→23:29)
[2021-12-01 07:42] VITALS: BP 119/56; PULSE 61; RESP 20; TEMP 36.2; O2SAT 99
[2021-12-01] MEDS: Thiamine HCL 100 MG TABLET PO (09:21)
[2021-12-01] MEDS: Venlafaxine HCl ER 37.5 MG CAP.ER.24H PO (09:21)
[2021-12-01] MEDS: Naltrexone HCl 50 MG TABLET PO (09:21)
[2021-12-01] MEDS: PHENobarbitaL 15 MG TABLET PO (09:21)
[2021-12-01] MEDS: Omeprazole 20 MG CAPSULE.DR PO ×2 (09:21→20:13)
[2021-12-01] MEDS: Folic Acid 1 MG TABLET PO (09:21)
[2021-12-01] MEDS: nadoloL 20 MG TABLET PO (09:21)
[2021-12-01] MEDS: Magnesium Oxide 400 MG TABLET PO ×2 (09:21→16:20)
[2021-12-01] MEDS: Multivitamin TABLET 1 TAB PO (09:21)
--- NOTE | 2021-12-01 10:21 | HO.PM.IMPN ---
Subjective Subjective Date of Service: 12/01/21 Interval History: seen and examined this morning follow up for alcohol withdrawal. Was discharged but is appealing discharge No overnight events and no specific complaints Constitutional Constitutional: Denies chills and Denies fever(s) ENT Ears, Nose, Mouth, and Throat: Denies dizziness Neurologic Neurologic: Denies dizziness Physical Exam Vital Signs: Vital Signs: Last Vital Signs Temp 97.2 F 12/01/21 07:42 Pulse 61 12/01/21 07:42 Resp 20 12/01/21 07:42 BP 119/56 L 12/01/21 07:42 Pulse Ox 99 12/01/21 07:42 O2 Del Method 12/01/21 07:42 BMI result Body Mass Index 43.1 Const: General: cooperative, comfortable, no acute distress, alert and awake Nutritional Appearance: obese Orientation/consciousness: patient oriented x3 Resp: Effort & Inspection: normal respiratory effort and able to speak in complete sentences Auscultation: clear to auscultation bilaterally Cardio: Rate: regular rate and bradycardic Heart sounds: S1 normal heart sound present and S2 normal heart sound present GI: Inspection: No distended Palpation (GI): Soft to palpation and nontender Neuro: General: patient oriented x3 and CN's II-XI intact bilaterally Extrem: General: Yes no pedal edema Objective Data Active Medications Acetaminophen (Acetaminophen 325 Mg Tablet) 650 mg PO Q6H PRN PRN Reason: Pain, Mild (Pain Scale 1-3) Last Admin: 11/30/21 20:27 Dose: 650 mg Documented By: YAS Folic Acid (Folic Acid 1 Mg Tablet) 1 mg PO DAILY [facility] Last Admin: 12/01/21 09:21 Dose: 1 mg Documented By: OLGA Furosemide (Furosemide 20 Mg Tablet) 20 mg PO DAILY [facility]; Protocol Last Admin: 11/30/21 09:17 Dose: Not Given Documented By: OLGA Non-Admin Reason: Patient Refused Magnesium Oxide (Magnesium Oxide 400 Mg Tablet) 400 mg PO BIDPC [facility] Last Admin: 12/01/21 09:21 Dose: 400 mg Documented By: OLGA Melatonin (Melatonin 3 Mg Tablet) 3 mg PO BEDTIME [facility] Last Admin: 11/30/21 20:28 Dose: 3 mg Documented By: YAS Multivitamins/Vitamin C (Multivitamin Tablet) 1 tab PO DAILY [facility] Last Admin: 12/01/21 09:21 Dose: 1 tab Documented By: OLGA Nadolol (Nadolol 20 Mg Tablet) 20 mg PO DAILY [facility]; Protocol Last Admin: 12/01/21 09:21 Dose: 20 mg Documented By: OLGA Naltrexone HCl (Naltrexone Hcl 50 Mg Tablet) 50 mg PO DAILY [facility] Last Admin: 12/01/21 09:21 Dose: 50 mg Documented By: OLGA Omeprazole (Omeprazole 20 Mg Capsule.Dr) 20 mg PO BID [facility] Last Admin: 12/01/21 09:21 Dose: 20 mg Documented By: OLGA Ondansetron HCl (Ondansetron Hcl 4 Mg/2 Ml Vial) 4 mg IVPUSH Q8H PRN PRN Reason: Nausea and Vomiting Last Admin: 11/28/21 08:31 Dose: 4 mg Documented By: SAMANTHA-YANIRA Pharmacy Consult (Consult Rx Perform Med Rec) 1 each MISCELLANE ONCE PRN PRN Reason: Consult order Pharmacy Consult (Consult Rx Etoh Phenob Po Only) 1 each MISCELLANE ONCE PRN; Protocol PRN Reason: Consult order Sodium Chloride (0.9 % Sodium Chloride Flush 3 Ml Syringe) 3 ml IVFLUSH QSHIFT [facility] Last Admin: 12/01/21 07:27 Dose: 3 ml Documented By: OLGA Spironolactone (Spironolactone 25 Mg Tablet) 50 mg PO DAILY [facility]; Protocol Last Admin: 11/30/21 09:17 Dose: Not Given Documented By: OLGA Non-Admin Reason: Patient Refused Sucralfate (Sucralfate 1 Gm Tablet) 1 gm PO BIDAC [facility] Last Admin: 12/01/21 07:26 Dose: 1 gm Documented By: OLGA Thiamine HCl (Thiamine Hcl 100 Mg Tablet) 100 mg PO DAILY [facility] Last Admin: 12/01/21 09:21 Dose: 100 mg Documented By: OLGA Venlafaxine HCl (Venlafaxine Hcl Er 37.5 Mg Cap.Er.24h) 37.5 mg PO DAILY [facility] Last Admin: 12/01/21 09:21 Dose: 37.5 mg Documented By: OLGA Labs CBC & Chem 7: 11/27/21 06:51 11/28/21 06:36 Assessment and Plan (1) Alcohol withdrawal: Status: Acute Plan 56-year-old woman with history of alcoholism presents to the ER with nausea, bloody vomitus and bloody diarrhea. Of note Presented with some blood in emesis and heme +stools no further episodes of bleeding History of portal hypertension, varices, cirrhosis Likely secondary to alcohol abuse GI consultation recommend holding off on EGD/colonoscopy for now, ppi, Carafate stool studies ordered but no diarrhea. Hypomagnesemia with proloned QTC Secondary to alcohol abuse Status post IV replacement EKG repeated, improvement in QTC continue po replacement Transaminitis Secondary to liver cirrhosis chronic, trending down Microcytic anemia Seems mostly chronic Likely secondary to alcohol use Follow CBC Thrombocytopenia chronic and related to underlying liver cirrhosis UTI Culture shows greater than 100,000 mixed bacteria s/p 3 days IV abx Alcohol use disorder with alcohol withdrawal no evidence of withdrawal at this time Continue phenobarbital protocol Discussed the importance of alcohol cessation Cotninue Thiamine, folic acid, multivitamin seen by care team-resources provided -lasix and aldactone placed on hold for soft bp DVT prophylaxis with mechanical compression boots Attending Dr. Covarrubias Full code Disposition patient reports that she is homeless. Pt appealing discharge. has bed offer at [facility], but pt has declined She is now saying she can go tomorrow with boyfriend Quality Stroke Does the patient have a stroke diagnosis?: No VTE Prior VTE?: No VTE Risk Level:: Medical - moderate - high VTE Device Contraindication: N/A - Device Ordered VTE Drug Contraindication: Treatment Not Indicated
[2021-12-01 12:00] VITALS: BP 113/59; PULSE 58; RESP 16; TEMP 36.8; O2SAT 96
[2021-12-01 15:14] VITALS: BP 112/53; PULSE 78; RESP 18; TEMP 36.7; O2SAT 97
[2021-12-01] MEDS: Acetaminophen 325 MG TABLET 650 MG PO (16:20)
[2021-12-01 18:56] VITALS: BP 105/54; PULSE 59; RESP 18; TEMP 36.7; O2SAT 94
[2021-12-01] MEDS: Melatonin 3 MG TABLET PO (20:13)
[2021-12-02 03:25] VITALS: BP 127/61; PULSE 63; RESP 18; TEMP 37; O2SAT 95
[2021-12-02 08:00] VITALS: BP 122/84; PULSE 63; RESP 12; TEMP 36.8; O2SAT 95
[2021-12-02] MEDS: Folic Acid 1 MG TABLET PO (08:05)
[2021-12-02] MEDS: Magnesium Oxide 400 MG TABLET PO (08:05)
[2021-12-02] MEDS: Multivitamin TABLET 1 TAB PO (08:05)
[2021-12-02] MEDS: Venlafaxine HCl ER 37.5 MG CAP.ER.24H PO (08:06)
[2021-12-02] MEDS: Naltrexone HCl 50 MG TABLET PO (08:06)
[2021-12-02] MEDS: Thiamine HCL 100 MG TABLET PO (08:06)
[2021-12-02] MEDS: Sucralfate 1 GM TABLET PO (08:06)
[2021-12-02] MEDS: nadoloL 20 MG TABLET PO (08:06)
[2021-12-02] MEDS: Omeprazole 20 MG CAPSULE.DR PO (08:06)
[2021-12-02] MEDS: 0.9 % Sodium Chloride Flush 3 ML SYRINGE IVFLUSH (08:07)
[2021-12-02] MEDS: Acetaminophen 325 MG TABLET 650 MG PO (08:17)
--- NOTE | 2021-12-02 08:33 | P.CDIC_ITS ---
CDI Concurrent Query Documentation Clarification: PHYSICIAN'S DOCUMENTATION REQUEST Date of Query: 12/02/21 0834 [facility] Admit Date: 11/25/21 Dear Doctor, A review of the medical record indicates additional documentation may be needed. Please review below and update the documentation accordingly. Clinical Indicators: Is there a diagnosis that correlates with the findings below: Risk Factors/Clinical Indicators/Treatments BMI: 43.1 Height: 4ft 11in Weight: 96.8kg Per provider progress note on 12/01: Nutritional appearance: obese If possible, please provide an associated diagnosis related to the abnormal BMI, such as: For a BMI >= 40: * Severe or Morbid Obesity * BMI is not significant * Other (please specify) * Unable to determine Use of terms such as suspected, likely, concern for, or probable (associated with a specific diagnosis that is being evaluated, monitored, or treated as if it exists) are acceptable and can be coded in the inpatient setting, when documented at the time of discharge. Thank you, Jazmin Murphy MS, RN, CCRN Extension: [phone] Please use your independent medical judgment in providing your response. THIS QUERY IS PART OF THE PERMANENT MEDICAL RECORD Provider Response: Morbid Obesity
--- NOTE | 2021-12-02 08:37 | MHC.CM.PN ---
Patient has been medically cleared for dc to home today, self care. CM met with Patient at bedside and she indicates that her Boyfriend will be here to pick her up around 10 AM this morning and that they will be staying with Friends temporarily. IMM addressed with Patient at bedside and the original has been given to Patient and a copy has been placed on the chart.
--- NOTE | 2021-12-02 08:37 | PM.DS ---
DS: Providers Provider Date of Service: 12/02/21 Date of admission: 11/25/21 15:31 Primary care physician: NEVILLE Garrison Consults: 11/25/21 16:03 Consult to Gastroenterology Routine Consulting Provider: Mg Nichols Reason for consultation: bloody vomitus, rectal bleeding Has provider been notified: No 11/28/21 08:23 Consult to Care Team Routine Comment: Reason for consultation: etoh DS: Diagnosis Discharge Diagnosis (1) Alcohol withdrawal: Status: Acute DS: Summary Hospital Course Hospital Course: Admission H and P: 48-year-old woman with history of alcohol abuse presented to the ER with complaints of nausea, vomiting and diarrhea.? She reports blood in her vomitus and describes it as blood tinged.? She denies any blood in her stool reports as being yellow in color.? She lives with her significant other and drinks at least 4 nips of vodka a day and mixed vodka drink.? She has been doing this for many years she denied any fever, chills, recent travel, sick contacts.? She is very shaky and tremulous.? Her magnesium was noted to be 1.0, she was given a total 4 mg of IV magnesium.? She was started on phenobarbital protocol, given 1 liter of IV fluids, pepcid.? Should be admitted for further management and treatment of GI bleed and alcohol withdrawal. Hospital course: admitted with blood-tinged emesis. Possibly secondary to Alisia-Huffman tear. No subsequent episodes of bleeding was noted History of portal hypertension, varices, cirrhosis Seen by GI, no indication for EGD or colonoscopy at this time. No further nausea or vomiting. Tolerating diet. H/H has remained stable Hypomagnesemia/ prolonged QTC Secondary to alcohol abuse Repleted with both IV and oral magnesium. QTC improved. Magnesium improving. Continue outpatient magnesium supplementation Transaminitis Secondary to liver cirrhosis with portal hypertension. LFTs chronically elevated, trending down Microcytic anemia Seems mostly chronic Likely secondary to alcohol use H/H has remained stable UTI Culture shows greater than 100,000 mixed bacteria. Completed 3 days of IV ceftriaxone. No further antibiotic treatment is indicated Alcohol use Disorder with acute alcohol withdrawal. Patient was initially started on phenobarbital protocol. She was supplemented with oral thiamine and folate. She was seen in evaluation by recovery/care team. She was given appropriate resources. Complete alcohol cessation was recommended She was seen by Physical therapy who recommended outpatient physical therapy. Can request outpatient physical therapy via PCP when patient has stable living situation Time Spent with Patient Time attestation: Total time spent providing and/or coordinating discharge services: Discharge coordination time: Greater than 30 minutes Quality: Safe Use of Opioids Does Pt have an Active Cancer Diagnosis on the Problem List?: No Quality: Stroke Does the patient have a stroke diagnosis?: No Physical Exam Vital Signs: Vital Signs: Last Vital Signs Temp 98.2 F 12/02/21 08:00 Pulse 63 12/02/21 08:00 Resp 12 12/02/21 08:00 BP 122/84 12/02/21 08:00 Pulse Ox 95 12/02/21 08:00 O2 Del Method 12/02/21 08:00 BMI result Body Mass Index 43.1 DS: Data Data Completed and Pending Completed studies during hospitalization [Text1]: Procedures Detoxification Services for Substance Abuse Treatment (10/18/21) Inspection of Upper Intestinal Tract, Via Natural or Artificial Opening Endoscopic (10/18/21) Discharge Plan Discharge Anticipated Discharge Date/Time: 12/02/21 10:00 Patient Disposition: Home, Self-Care Discharge Diagnosis: alcohol withdrawal low magnesium Referrals: Yahaira Dove FNP [Primary Care Provider] - 1 Week Discharge Medications: Continued venlafaxine 37.5 mg capsule,extended release 24hr 1 cap PO DAILY melatonin 3 mg tablet 1 tab PO BEDTIME pantoprazole 40 mg tablet,delayed release (DR/EC) 1 tab PO BID Qty: 60 0RF naltrexone 50 mg tablet 1 tab PO DAILY nadolol 20 mg tablet 1 tab PO DAILY folic acid 1 mg tablet 1 tab PO DAILY furosemide 20 mg tablet 1 tab PO DAILY spironolactone 50 mg tablet 1 tab PO DAILY magnesium oxide 400 mg (241.3 mg magnesium) tablet 400 mg PO DAILY Discharge Orders: Discharge Order (Routine); Ordered 11/28/21 Ordered By: Heaven Núñez Activity on Discharge: As tolerated Stand Alone Forms: Patient Portal Discharge page Care Plan Goals: see below Health Concerns: Alcohol use disorder with acute alcohol withdrawal Low magnesium Plan of Treatment: Recommend to avoid alcohol use Take all medications as prescribed Call to schedule follow-up appointment with PCP Outpatient follow up MRI for evaluation of ?liver nodules seen on CT scan Assessment: See above
== END 2021-12-02 11:49 | disposition home or self-care (01) | DRG 369 ==
LOC: HO.ED 16:11 → HO.EDOVER 16:34 → HO.IMC 11-28 08:53
PROVIDERS: Physician Assistant Medical; Admitting Provider Nurse Practitioner Acute Care; Emergency Provider Emergency Medicine; PCP Nurse Practitioner Family; Visit Provider Internal Medicine
DX: K22.6 Gastro-esophageal laceration-hemorrhage syndrome (principal); F10.239 Alcohol dependence with withdrawal, unspecified; N39.0 Urinary tract infection, site not specified; K76.6 Portal hypertension; K29.21 Alcoholic gastritis with bleeding; F41.9 Anxiety disorder, unspecified; F32.A Depression, unspecified; Y90.2 Blood alcohol level of 40-59 mg/100 ml; R94.31 Abnormal electrocardiogram [ECG] [EKG]; D50.9 Iron deficiency anemia, unspecified; K70.30 Alcoholic cirrhosis of liver without ascites; I85.10 Secondary esophageal varices without bleeding; D69.59 Other secondary thrombocytopenia; E83.42 Hypomagnesemia; Z20.822 Contact with and (suspected) exposure to COVID-19; Z71.41 Alcohol abuse counseling and surveillance of alcoholic; Z87.891 Personal history of nicotine dependence; Z87.892 Personal history of anaphylaxis; Z91.010 Allergy to peanuts; Z88.0 Allergy status to penicillin; Z88.2 Allergy status to sulfonamides; Z79.899 Other long term (current) drug therapy
CPT/HCPCS: 36415; 71045; 74176; 80048; 80076; 81001; 82077; 82272; 83690; 83735; 83880; 84484; 85025; 87086; 87635; 93005; 96361; 96372; 96374; 96375; 97162; 99285; J0696; J2405; J2560; J3475

== ENCOUNTER 2021-12-05 10:57 | Emergency (ER) | payer OTHER, SELFPAY ==
--- NOTE | ~2021-12-05 | XR_ITS ---
EXAMINATION: XR LUMBOSACRAL SPINE CLINICAL INFORMATION: Bruising after fall COMPARISON: CT abdomen pelvis 11/25/2021, 10 days ago TECHNIQUE: Three views of the lumbosacral spine. FINDINGS: Unchanged compression fractures of L1 and L3. Mild spondylitic endplate changes are seen. Disc spaces are relatively well preserved with the exception of some minimal narrowing at L2-L3 and L3-L4. No acute fractures are seen. Gallbladder is filled with small layering calculi. XR/XR lumbar spine 2-3V IMPRESSION: Mild degenerative changes with stable chronic compression fractures. Cholelithiasis.
--- NOTE | ~2021-12-05 | XR_ITS ---
EXAMINATION: XR TOES, RIGHT CLINICAL INFORMATION: Great toe pain and bruising COMPARISON: None TECHNIQUE: 3 views of the right toes were obtained. FINDINGS: Bones are diffusely osteopenic. Alignment is normal. No evidence of acute fracture or subluxation. Mild osteoarthritis of multiple interphalangeal joints. No erosions or periostitis. No radiopaque foreign body. XR/XR toe RT min 2V IMPRESSION: No acute osseous injury in the examined right foot.
--- NOTE | ~2021-12-05 | CT_ITS ---
EXAMINATION: CT HEAD WITHOUT CONTRAST CLINICAL INFORMATION: History of intoxication and fall. COMPARISON: None TECHNIQUE: Contiguous axial imaging was performed from the skull base to vertex without intravenous administration of contrast. This CT examination was performed using dose optimization techniques as appropriate, variously including the following: *Automated exposure control *Adjustment of mA and/or kV according to patient size (this includes techniques or standardized protocols for targeted exams where dose is matched to indication/reason for exam; i.e. extremities or head) *Use of iterative reconstruction technique DLP: 675 mGy-cm FINDINGS: No evidence of intracranial hemorrhage, extra-axial fluid collection, focal mass effect or midline shift. Moderate parenchymal volume loss with commensurate prominence of ventricles and sulci. Atherosclerotic calcification of cavernous carotid arteries. The patchy hypoattenuation within deep, periventricular white matter is likely sequela of chronic mild microangiopathy. The lopez-white matter differentiation is maintained. No evidence of an acute major vascular territory infarction. No calvarial fracture. Incidentally noted is a lobulated geographic lucent lesion of the right frontal calvarium of 1.4 cm AP dimension. Although the lesion causing scalloping of cortex, there is no extraosseous mass, and this could represent an intradiploic epidermoid cyst or intraosseous hemangioma. The visualized paranasal sinuses are well aerated and without air-fluid levels. The mastoid air are clear. The temporomandibular joints, orbits and globes are unremarkable. CT/CT head/brain wo IV con IMPRESSION: * No intracranial hemorrhage. No evidence of calvarial fracture or acute intracranial pathology after the recent fall. * Moderate volume loss of the brain parenchyma and findings suggestive of chronic, mild microangiopathy. * An incidentally detected geographic, lobulated lucency in the right frontal calvarium could represent an intradiploic epidermoid cyst.
--- NOTE | 2021-12-05 11:11 | ECG_ITS ---
Test Reason : WEAKNESS Blood Pressure : / mmHG Vent. Rate : 069 BPM Atrial Rate : 069 BPM P-R Int : 160 ms QRS Dur : 088 ms QT Int : 412 ms P-R-T Axes : 052 020 049 degrees QTc Int : 441 ms Normal sinus rhythm Normal ECG When compared with ECG of 28-NOV-2021 15:48, Heart rate has increased Referred By: Urszula Grant Electronically Signed By:TINY GOLDMAN
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
[2021-12-05 11:16] VITALS: BP 118/86; BP 125/81; PULSE 90; PULSE 95; RESP 18; TEMP 36.8; O2SAT 95; O2SAT 99; BMI 42.0
--- NOTE | 2021-12-05 12:01 | PC.NURSE ---
PT is A to person and place. She admitting to drinking a couple of nips this morning, denies substance use. NSR at 71 on the monitor, vitals stable. She is cleaned of bowel incontinence. Awaiting lab results.
[2021-12-05 12:05] VITALS: BP 125/81; PULSE 75; RESP 15; TEMP 36.9; O2SAT 98
[2021-12-05 12:08] LABS: Basophils Absolute Auto 0.1 X10*3/uL (0.0-0.2); Basophils Percent Auto 2.4 % (0-2); Eosinophils Absolute Auto 0.2 X10*3/uL (0.0-0.4); Eosinophils Percent Auto 4.1 % (0-4); Hematocrit 34.1 % (37.0-47.0); Hemoglobin 10.4 g/dl (12.0-16.0); Lymphocytes Absolute Auto 1.1 X10*3/uL (1.2-4.9); Lymphocytes Percent Auto 26.3 % (20-40); MANUAL DIFF FLAG SCAN; Mean Corpuscular HGB Conc 30.5 g/dl (31.0-35.0); Mean Platelet Volume 10.5 fL (9.4-12.3); Monocytes Absolute Auto 0.9 X10*3/uL (0.1-1.2); Monocytes Percent Auto 22.5 % (2-11); Neutrophils Absolute Auto 1.9 x10*3/uL (2.0-8.3); Neutrophils Percent Auto 44.7 % (45-73); Platelet Count 127 X10*3/uL (160-400); Red Blood Count 4.16 X10*6/uL (4.20-5.50); Red Cell Distribution Width 19.9 % (11.0-16.0); SCAN SMEAR FLAG 1; White Blood Count 4.1 X10*3/uL (4.8-10.8)
[2021-12-05 12:18] LABS: Ethanol 392 mg/dL
--- NOTE | 2021-12-05 12:19 | PC.NURSE ---
Pt went to the bathroom, used her cane, without issues. Denies dizziness and lightheadedness.
[2021-12-05 12:22] LABS: Alanine Aminotransferase 22 U/L (0-31); Albumin Level 3.3 g/dL (3.5-5.0); Alkaline Phosphatase 87 U/L (39-117); Anion Gap 14 (12-20); Aspartate Amino Transferase 60 U/L (5-31); Bilirubin Direct 0.5 mg/dL (0.0-0.5); Bilirubin Total 0.6 mg/dL (0.0-1.0); Blood Urea Nitrogen 5 mg/dL (9-16); Calcium 8.1 mg/dL (8.4-10.2); Carbon Dioxide 28 mmol/L (22-29); Chloride 106 mmol/L (96-108); Creatinine Clr Calc Pharmacy 97.8; Estimated Glomerular Filt Rate > 60; Glucose Random 118 mg/dL (60-115); Magnesium 1.7 mg/dL (1.6-2.6); Potassium 4.1 mmol/L (3.3-5.1); Sodium 144 mmol/L (135-145); Total Protein 6.7 g/dL (6.5-8.0)
[2021-12-05 12:27] LABS: COVID-19 Test Negative (Negative); IDNOW Serial# 08D9AD1C
--- NOTE | 2021-12-05 12:27 | PC.NURSE ---
Pt becoming increasing belligerent, verbally abusive and difficult to redirect. Giving food with the approval of the provider.
[2021-12-05 12:29] LABS: SLIDE REVIEW VERIFIED
--- NOTE | 2021-12-05 13:54 | PC.NURSE ---
Pt is sleeping, vitals are stable.
[2021-12-05 15:18] VITALS: PULSE 85; RESP 14; TEMP 36.9; O2SAT 97
--- NOTE | 2021-12-05 15:28 | PC.NURSE ---
Addendum entered by Tara Castillo 12/05/21 15:30: Awaiting urine sample. Original Note: Pt went to the bathroom without issue. Request for food, cooperative and resting comfortably.
[2021-12-05 15:47] VITALS: BP 108/55; PULSE 80; RESP 16; TEMP 36.7; O2SAT 97
[2021-12-05 15:51] LABS: Monotest Negative (Negative)
[2021-12-05 17:09] VITALS: BP 104/53; PULSE 97; RESP 17; TEMP 36.7; O2SAT 97
--- NOTE | 2021-12-05 17:16 | PC.NURSE ---
Pt awake, A & O X 3. She said she feels hot , requested for an ice cream. No perspiration noted, denies tremors, no nausea or vomitin.
[2021-12-05 17:52] LABS: Appearance Urine Clear; Color Urine Yellow; Glucose Urine UA Negative (Negative); Leukocyte Esterase Urine Trace (Negative); Nitrite Urine Negative (Negative); Specific Gravity - Urine 1.015 (1.005-1.025); UMIC TRIGGER UACC YES; Urine Blood Negative (Negative); Urine Ketones Negative (Negative); Urine Protein Negative (Neg-Trace)
[2021-12-05 17:54] LABS: Bacteria Urine Trace (None Seen); Hyaline Casts Urine 0-2 /LPF (0-2); RBC Urine 0-2 /HPF (0-2); WBC Urine 0-5 /HPF (0-5)
[2021-12-05 18:00] VITALS: BP 141/67; PULSE 96; RESP 19; TEMP 36.9; O2SAT 98
[2021-12-05 18:01] LABS: Amphetamine Screen Urine Not Detected (Not Detect); Barbiturates, Urine POSITIVE (Not Detect); Benzodiazepines Screen Urine Not Detected (Not Detect); Cannabinoid Screen Urine Not Detected (Not Detect); Cocaine Screen Urine Not Detected (Not Detect); Fentanyl, urine Not Detected (Not Detect); Opiate Screen Urine Not Detected (Not Detect); Phencyclidine Screen Urine Not Detected (Not Detect)
--- NOTE | 2021-12-05 19:19 | MHC.RECOVSUP ---
? Reason for consult:ETOH o? Current location:[facility]? o? Identified substance use concern:? -? Support ? Intervention: o? Community resources provided o? Harm reduction discussion ? Plan:Pt being discharged ? Additional information:RC met with pt, discussed harm reduction strategies. VALENTE asked pt if she was interested in detox, pt declined to go to treatment. VALENTE reported this to her
[2021-12-05] MEDS: Acetaminophen 325 MG TABLET 650 MG PO (19:24)
== END 2021-12-05 19:55 | disposition home or self-care (01) ==
PROVIDERS: Physician Assistant; Emergency Provider Emergency Medicine
DX: F10.220 Alcohol dependence with intoxication, uncomplicated (principal); Y90.8 Blood alcohol level of 240 mg/100 ml or more; S30.0XXA Contusion of lower back and pelvis, initial encounter; S90.111A Contusion of right great toe without damage to nail, initial encounter; G89.29 Other chronic pain; M79.605 Pain in left leg; M79.604 Pain in right leg; K70.30 Alcoholic cirrhosis of liver without ascites; I10 Essential (primary) hypertension; F32.A Depression, unspecified; F41.9 Anxiety disorder, unspecified; F12.90 Cannabis use, unspecified, uncomplicated; Z87.891 Personal history of nicotine dependence; Z79.899 Other long term (current) drug therapy; X58.XXXA Exposure to other specified factors, initial encounter; Y93.9 Activity, unspecified; Y92.9 Unspecified place or not applicable; Y99.9 Unspecified external cause status
CPT/HCPCS: 36415; 70450; 72100; 73660; 80048; 80076; 80307; 81001; 82077; 83735; 85025; 86308; 87635; 93005; 99284; 99285

== ENCOUNTER 2022-04-13 20:22 | Inpatient (IN) | payer OTHER, SELFPAY ==
--- NOTE | ~2022-04-13 | US_ITS ---
EXAMINATION: US ABDOMEN COMPLETE CLINICAL INFORMATION: Cirrhosis. COMPARISON: CT scan dated November 25, 2021. No prior MRI or abdominal ultrasound. TECHNIQUE: Real-time imaging of the abdominal viscera. FINDINGS: PANCREAS: Head and body appear unremarkable. Tail not visualized. ABDOMINAL AORTA: The proximal, mid, and distal segments are normal in caliber. INFERIOR VENA CAVA: Visualized portions are normal. LIVER: Nodular hepatic contour. Diffusely heterogeneous echogenicity. Multiple, 2.5 cm or less, relatively hypoechoic structures within the liver, at least 2 of which appear solid, not further characterized. No intrahepatic biliary duct dilatation is seen. GALLBLADDER: Subcentimeter, layering, shadowing gallstones. Suspect mild diffuse gallbladder wall thickening, nonspecific. Approximately 2 cm, fluid-containing structure with possible mural nodularity and internal septation and contiguous with the fundus of the gallbladder. No evidence of hyperemia or pericholecystic fluid. COMMON BILE DUCT: Not demonstrated by the technologist. RIGHT KIDNEY: No hydronephrosis. No renal calculi or focal parenchymal lesion identified. The kidney measures 1.2 cm in maximum dimension. LEFT KIDNEY: No hydronephrosis. No renal calculi or focal parenchymal lesion identified. The kidney measures 10.5 cm in maximum dimension. SPLEEN: The spleen measures 11.3 cm in maximum dimension. Evidence of varices in the region of the splenic hilum, corresponding with splenorenal shunting identified on prior CT scan. FREE FLUID: None. US/US abdomen complete IMPRESSION: No acute finding. Findings consistent with reported history of hepatic cirrhosis. Multiple, 2.5 cm or less, relatively hypoechoic structures within the liver, at least 2 of which appear solid, not further characterized. Hepatocellular carcinoma cannot be confirmed or excluded. Correlation with AFP and MRI are recommended for further evaluation if clinically indicated. Findings consistent with previously identified splenorenal shunt, consistent with portal hypertension. No evidence of ascites. Spleen upper normal in size. Cholelithiasis. Suspect mild diffuse gallbladder wall thickening, nonspecific. Approximately 2 cm, fluid-containing structure with possible mural nodularity and internal septation and contiguous with the fundus of the gallbladder. Differential diagnosis includes, but is not limited to, phrygian cap containing debris, neoplasm, etc. This finding may be evaluated at the time of MRI.
--- NOTE | ~2022-04-13 | MR_ITS ---
EXAMINATION: MR ABDOMEN WITHOUT AND WITH CONTRAST CLINICAL INFORMATION: Liver protocol. Rule out HCC and gallbladder cancer. COMPARISON: Ultrasound 04/14/2022. CT performed 11/25/2021. TECHNIQUE: MR abdomen was performed without and with use of 7 mL intravenous Gadavist gadolinium contrast. Postcontrast images are performed in multiphase dynamic sequences. Imaging was performed in 3 planes. FINDINGS: LUNG BASES: The visualized lung bases are unremarkable. LIVER, GALLBLADDER, AND BILIARY TREE: There is a nodular hepatic Contour consistent with the history of cirrhosis. Dropout of signal on out of phase imaging is consistent with hepatic steatosis. There are multiple T1 bright lesions that are accentuated on the out of phase imaging throughout the liver. These have no correlate on T2-weighted imaging. The largest is seen in segment 3 measuring 2.2 cm on series 7 image 10. These are also well seen on the noncontrast LAVA sequence. These remain increased in signal compared to the surrounding liver on the arterial phase, which could represent enhancement or simply be associated with the initial intrinsic nature of the lesion. On the more delayed phases these do not show washout. There is relative uniform enhancement on the most delayed sequence, suggestive of regenerative nodules. No suspicious liver mass is identified at this time. Trace perihepatic ascites.. The portal vein is patent. Splenorenal shunt noted. The hepatic veins are patent. Normally distended gallbladder. Stones in the gallbladder lumen. There is irregular appearance at the gallbladder fundus, as seen on previous imaging. This appears to be multicystic in nature rather than an area of focal wall thickening. Small septations are present between the cystic structures. There is no nodular enhancement. This area measures 1.8 x 1.2 cm. PANCREAS: Unremarkable. SPLEEN: Normal. ADRENAL GLANDS: Normal. KIDNEYS AND URETERS: The kidneys are normal in size, shape, and enhance symmetrically. No hydronephrosis. No perinephric stranding. GASTROINTESTINAL TRACT: No bowel obstruction. No ascites or fluid collection. ABDOMINAL WALL: No significant hernia is appreciated. LYMPH NODES: No lymphadenopathy. VASCULAR: Normal caliber aorta. Splenorenal shunt. Esophageal varices. OSSEOUS STRUCTURES: Marrow signal normal. Mild degenerative change throughout the spine. Chronic height loss of the L1 vertebral body. Schmorl's node at the superior endplate of L3. MR/MR abdomen wo/w con IMPRESSION: 1. Cirrhotic liver. Multiple T1 bright lesions throughout the liver. These do not show washout on the more delayed phases. These are most consistent with regenerative nodules. No suspicious liver mass identified. 2. Splenorenal shunt and esophageal varices. Trace ascites. 3. Cholelithiasis. Cystic appearance of the gallbladder fundus, corresponding with the abnormality seen on previous imaging. No focal wall thickening identified. No nodular enhancement. Attention can be given on follow-up imaging.
[2022-04-13 20:45] VITALS: BP 126/62; BP 172/88; PULSE 76; PULSE 78; RESP 18; TEMP 36.6; O2SAT 100; O2SAT 97; BMI 30.2
--- NOTE | 2022-04-13 20:52 | ED.ALCOHOL ---
HPI - Alcohol General Chief Complaint: ETOH/Substance Use Stated Complaint: alcohol withdrawal Time Seen by Provider: 04/13/22 20:52 Source: patient and EMS Mode of arrival: EMS Limitations: no limitations History of Present Illness HPI narrative: 57-year-old female presents via EMS for EtOH withdrawals, tremors, nausea, vomiting, diarrhea, and history of gastric ulcers. Patient states that she does have significant withdrawals, has been drinking 1-2 pt of alcohol per day for the past few decades. She is interested in detox. MD complaint: alcohol withdrawal, alcohol dependence and desires rehab Last drink: Hours (ago) ( Several hours prior to admission) Amount of alcohol consumed: 1-2 pt Chronic alcohol use: Yes Previous visits for alcohol intoxication: Yes Recent trauma: No Associated symptoms: nausea, vomiting, tremors, abdominal pain and hematemesis Treatments prior to arrival: none Related Data Home Medications Medication Instructions Recorded Confirmed folic acid 1 mg tablet 1 tab PO DAILY 03/02/21 11/25/21 furosemide 20 mg tablet 1 tab PO DAILY 03/02/21 11/25/21 nadolol 20 mg tablet 1 tab PO DAILY 03/02/21 11/25/21 naltrexone 50 mg tablet 1 tab PO DAILY 03/02/21 11/25/21 melatonin 3 mg tablet 1 tab PO BEDTIME 10/18/21 11/25/21 venlafaxine 37.5 mg 1 cap PO DAILY 10/18/21 11/25/21 capsule,extended release 24 hr magnesium oxide 400 mg (241.3 mg 400 mg PO DAILY 11/25/21 11/25/21 magnesium) tablet spironolactone 50 mg tablet 1 tab PO DAILY 11/25/21 11/25/21 Previous Rx's Medication Instructions Recorded pantoprazole 40 mg tablet,delayed 1 tab PO BID #60 tabs 10/21/21 release Allergies Allergy/AdvReac Type Severity Reaction Status Date / Time Penicillins Allergy Mild Rash Verified 11/28/21 08:38 levofloxacin [From Levaquin] AdvReac Unknown Unknown Unverified 11/28/21 08:38 Sulfa (Sulfonamide AdvReac Unknown Unknown Unverified 11/28/21 08:38 Antibiotics) peanut AdvReac Anaphylaxis Verified 11/28/21 08:39 Peanut Butter AdvReac Anaphylaxis Verified 11/28/21 08:39 Review of Systems Review of Systems: Constitutional: No Fever, No Chills Cardiovascular: No Chest Pain, No SOB Respiratory: No Cough, No Dyspnea Gastrointestinal: positive Nausea, positive Vomiting, positive Diarrhea, positive abdominal Pain Genitourinary: No Dysuria, No Hematuria Musculoskeletal: no joint pain, No Myalgias, No Joint Swelling Skin: No Skin lacerations, No rash Neuro: No Weakness, No Numbness, No Paresthesias, No Loss of Consciousness, No Dizziness, No Headache Psych: positive alcohol abuse, positive Anxiety, positive Depression Yes all other systems are reviewed and are negative [facility] Past Medical History Attestation statement: The following information was validated with the patient. Source: old records reviewed Medical History Alcohol abuse with withdrawal Alcoholic cirrhosis of liver Anxiety Depression Hypertension Surgical History H/O foot surgery Family History Family History Mother Pancreatic cancer Social History Social History Household Members: Significant Other Housing: Homeless Do you presently have visiting nurse or other home services: No Alcohol intake: current Alcohol intake frequency: 3 or more drinks per day Alcohol type: hard liquor Patient Tobacco Use Status: Former Tobacco user Substance Use Type: Marijuana Advance Directives: Yes Advance Directives on File: Yes Advance Directives Date on File: 03/11/21 service: No Current occupational status: disabled Physical Exam ED Vital Signs: Vital Signs - 24 hr 04/13/22 20:45 Temperature 97.9 F Pulse Rate 76 Respiratory Rate 18 Blood Pressure 126/62 Pulse Oximetry 97 Oxygen Delivery Method Room Air BMI result Body Mass Index 30.2 Appearance: Alert. Oriented X3. moderate distress. Eyes: Pupils equal, round and reactive to light. sclera nonicteric. EOMI. ENT: Pharynx normal. Dry mucous membranes. Neck: Normal inspection. Neck supple. CVS: Normal heart rate and rhythm. Pulses normal. Respiratory: No respiratory distress. Breath sounds normal. Abdomen: Soft and nontender. Skin: Skin warm and dry. Normal skin color. Normal skin turgor. Extremities: No lower extremity edema. Gait not assessed for safety. Neuro: No motor deficit. No sensory deficit. Cranial nerves 2-12 intact. Course Course Course Narrative: 57-year-old female with past medical history of EtOH abuse, anemia, QT prolongation, hypo magnesemia, presents with ETOH withdrawal symptoms, and request for detox. Patient states that she has been drinking 1-2 pt of alcohol daily for decades. She has had prior admissions for ETOH abuse in the past. Patient is willing to go to detox. Will give Ativan at this time. Labs are pending. 21:52 CIWA 22. Second dose of Ativan ordered. Will start phenobarbital protocol. Patient is interested in going to a rehab facility after detoxing. Labs indicate hypo magnesemia at 1.3, will replete with 2 g IV, ETOH is less than 10. Lab values are consistent with her prior values , indicative of EtOH abuse and pernicious anemia. Phenobarbital protocol started, patient will be admitted by hospitalist for EtOH withdrawal symptoms, EtOH gastritis, and hematemesis. Consultations Consultation #1: Romeo Medical Decision Making Differential Diagnosis Differential Diagnoses: The differential diagnosis associated with the presentation includes ETOH withdrawal, alcoholic gastritis Admission/Observation Consideration of admission/observation: Escalation of care including admission/observation considered patient requires admission Consult Healthcare Provider Management of the patient was discussed with: Hospitalist Lab Data MDM Lab Attestation statement: I reviewed the patient's lab results. 04/13/22 21:24 04/13/22 21:24 Labs: Lab Results 04/13/22 04/13/22 04/13/22 Range/Units 21:24 21:24 21:24 WBC 3.1 L (4.8-10.8) X10*3/uL RBC 3.61 L (4.20-5.50) X10*6/uL Hgb 9.0 L (12.0-16.0) g/dl Hct 30.1 L (37.0-47.0) % MCV 83.4 (80.0-98.0) fL MCH 24.9 L (27.0-33.0) pg MCHC 29.9 L (31.0-35.0) g/dl RDW 18.3 H (11.0-16.0) % Plt Count 76 L D (160-400) X10*3/uL MPV 10.8 (9.4-12.3) fL Immature Gran % (Auto) 0.0 (0.0-0.4) % Neut % (Auto) 52.6 (45-73) % Lymph % (Auto) 25.0 (20-40) % [place] % (Auto) 17.9 H (2-11) % Eos % (Auto) 3.2 (0-4) % Baso % (Auto) 1.3 (0-2) % Lymph # (Auto) 0.8 L (1.2-4.9) X10*3/uL [place] # (Auto) 0.6 (0.1-1.2) X10*3/uL Eos # (Auto) 0.1 (0.0-0.4) X10*3/uL Baso # (Auto) 0.0 (0.0-0.2) X10*3/uL Abs Immat Gran (auto) 0.00 (0.00-0.03) X10*3/uL Absolute Neuts (auto) 1.6 L (2.0-8.3) x10*3/uL Absolute Nucleated RBC 0.000 (0.0-0.012) X10*3/uL Nucleated RBC % (auto) 0.0 (0.0-0.2) /100WBC PT 14.6 H (10.0-13.1) SEC INR 1.3 H (0.9-1.1) APTT 34.5 (26.0-36.4) SEC Sodium 139 (135-145) mmol/L Potassium 3.5 (3.3-5.1) mmol/L Chloride 104 (96-108) mmol/L Carbon Dioxide 27 (22-29) mmol/L Anion Gap 12 (12-20) BUN 6 L (9-16) mg/dL Creatinine 0.56 (0.5-1.4) mg/dL Estim Creat Clear Calc 90.7 Estimated GFR > 60 Random Glucose 97 (60-115) mg/dL Calcium 8.2 L (8.4-10.2) mg/dL Magnesium 1.3 L* (1.6-2.6) mg/dL Total Bilirubin 1.6 H (0.0-1.0) mg/dL Direct Bilirubin 0.7 H (0.0-0.5) mg/dL AST 37 H (5-31) U/L ALT 15 (0-31) U/L Alkaline Phosphatase 85 (39-117) U/L Troponin I High Sens (<3.5-17.0) ng/L Total Protein 6.3 L (6.5-8.0) g/dL Albumin 3.3 L (3.5-5.0) g/dL Lipase 35 (8-78) U/L Ethyl Alcohol < 10 mg/dL Influenza Type A (PCR) (Negative) Influenza Type B (PCR) (Negative) RSV RNA Qual (PCR) (Negative) SARS-CoV-2 RNA (RT-PCR) (Negative) 04/13/22 04/13/22 Range/Units 21:24 21:24 WBC (4.8-10.8) X10*3/uL RBC (4.20-5.50) X10*6/uL Hgb (12.0-16.0) g/dl Hct (37.0-47.0) % MCV (80.0-98.0) fL MCH (27.0-33.0) pg MCHC (31.0-35.0) g/dl RDW (11.0-16.0) % Plt Count (160-400) X10*3/uL MPV (9.4-12.3) fL Immature Gran % (Auto) (0.0-0.4) % Neut % (Auto) (45-73) % Lymph % (Auto) (20-40) % [place] % (Auto) (2-11) % Eos % (Auto) (0-4) % Baso % (Auto) (0-2) % Lymph # (Auto) (1.2-4.9) X10*3/uL [place] # (Auto) (0.1-1.2) X10*3/uL Eos # (Auto) (0.0-0.4) X10*3/uL Baso # (Auto) (0.0-0.2) X10*3/uL Abs Immat Gran (auto) (0.00-0.03) X10*3/uL Absolute Neuts (auto) (2.0-8.3) x10*3/uL Absolute Nucleated RBC (0.0-0.012) X10*3/uL Nucleated RBC % (auto) (0.0-0.2) /100WBC PT (10.0-13.1) SEC INR (0.9-1.1) APTT (26.0-36.4) SEC Sodium (135-145) mmol/L Potassium (3.3-5.1) mmol/L Chloride (96-108) mmol/L Carbon Dioxide (22-29) mmol/L Anion Gap (12-20) BUN (9-16) mg/dL Creatinine (0.5-1.4) mg/dL Estim Creat Clear Calc Estimated GFR Random Glucose (60-115) mg/dL Calcium (8.4-10.2) mg/dL Magnesium (1.6-2.6) mg/dL Total Bilirubin (0.0-1.0) mg/dL Direct Bilirubin (0.0-0.5) mg/dL AST (5-31) U/L ALT (0-31) U/L Alkaline Phosphatase (39-117) U/L Troponin I High Sens 7.0 (<3.5-17.0) ng/L Total Protein (6.5-8.0) g/dL Albumin (3.5-5.0) g/dL Lipase (8-78) U/L Ethyl Alcohol mg/dL Influenza Type A (PCR) NEGATIVE (Negative) Influenza Type B (PCR) NEGATIVE (Negative) RSV RNA Qual (PCR) NEGATIVE (Negative) SARS-CoV-2 RNA (RT-PCR) NEGATIVE (Negative) Independent Interpretation I performed an independent interpretation of an: EKG Interpretation: Normal sinus rhythm Nonspecific ST abnormality Prolonged QT Abnormal ECG When compared with ECG of 05-DEC-2021 11:50, QT has lengthened Vent. rate 77 BPM ME interval 138 ms QRS duration 80 ms QT/QTc 448/506 ms P-R-T axes 43 17 46 13-APR-2022 21:48:47 External Record Review External record reviewed: Inpatient record, Outpatient record and Prior outpatient labs Chronic Conditions Patient?s care impacted by: Other ( alcoholism) Social Determinants Patient?s care significantly limited by Social Determinants of Health including: Other Social Determinant of Health Medications Administered Generic Name Dose Route Start Last Admin Trade Name Freq PRN Reason Stop Dose Admin Sodium Chloride 1,000 mls @ 75 mls/hr 04/13/22 23:00 04/14/22 01:18 Ns IVCONT 75 mls/hr .[id number] SANDRA Administration Phenobarbital Sodium 158.6 mg 04/14/22 01:30 04/14/22 01:18 Phenobarbital Sodium 130 Mg/Ml Vial Im Q3hx2 IM 04/14/22 04:31 158.6 mg Q3H SANDRA Administration Protocol Sodium Chloride 3 ml 04/14/22 00:00 04/14/22 01:19 0.9 % Sodium Chloride Flush 3 Ml Syringe IVFLUSH Not Given QSHIFT SANDRA Discontinued Medications Generic Name Dose Route Start Last Admin Trade Name Freq PRN Reason Stop Dose Admin Sodium Chloride 1,000 mls @ 999 mls/hr 04/13/22 21:00 04/14/22 01:16 Ns IVCONT 04/13/22 22:00 Infused .Q1H1M SANDRA Infusion Thiamine HCl 100 mg/ Sodium 101 mls @ 202 mls/hr 04/13/22 21:00 04/14/22 01:16 Chloride IV 04/13/22 21:29 Infused ONCE ONE Infusion Folic Acid 1 mg/ Sodium 50.2 mls @ 100.4 mls/hr 04/13/22 21:00 04/14/22 01:16 Chloride IV 04/13/22 21:29 Infused ONCE ONE Infusion Magnesium Sulfate 2 gm in 50 mls @ 25 mls/hr 04/13/22 22:01 04/14/22 01:16 Magnesium Sulfate/H2o IV 04/14/22 00:00 Infused ONCE ONE Infusion Lorazepam 2 mg 04/13/22 20:57 04/13/22 21:33 Lorazepam 2 Mg/Ml Vial IVPUSH 04/13/22 20:58 2 mg ONCE ONE Administration Lorazepam 2 mg 04/13/22 21:52 04/13/22 23:23 Lorazepam 2 Mg/Ml Vial IVPUSH 04/13/22 21:53 Not Given ONCE ONE Lorazepam 2 mg 04/13/22 21:54 04/13/22 23:23 Lorazepam 2 Mg/Ml Vial IVPUSH 04/13/22 21:55 Not Given ONCE ONE Pantoprazole Sodium 80 mg 04/13/22 22:46 04/13/22 23:07 Pantoprazole Sodium 40 Mg/10 Ml Vial IVPUSH 04/13/22 22:47 80 mg ONCE ONE Administration Phenobarbital Sodium 211.9 mg 04/13/22 22:30 04/13/22 23:14 Phenobarbital Sodium 130 Mg/Ml Im Once IM 04/13/22 22:31 211.9 mg ONCE ONE Administration Protocol Discharge Plan Discharge Clinical Impression: Alcohol withdrawal, Hypomagnesemia, Hematemesis, Acute alcoholic gastritis Patient Disposition: Admitted As Inpatient Interventions: Bangs-Suicide Risk Severity Scale Last Done: 04/13/22 21:41
--- NOTE | 2022-04-13 21:01 | ECG_ITS ---
Test Reason : ETOH withdrawl Blood Pressure : / mmHG Vent. Rate : 077 BPM Atrial Rate : 077 BPM P-R Int : 138 ms QRS Dur : 080 ms QT Int : 448 ms P-R-T Axes : 043 017 046 degrees QTc Int : 506 ms Normal sinus rhythm Nonspecific ST abnormality Prolonged QT Abnormal ECG When compared with ECG of 05-DEC-2021 11:50, QT has lengthened Referred By: Mandie Shah Electronically Signed By:SERENE RUIZ MD
[2022-04-13] MEDS: LORazepam 2 MG/ML VIAL IVPUSH (21:33)
[2022-04-13] MEDS: Thiamine HCL 100 MG in 0.9 % Sodium Chloride 100 ML 202 MG IV (21:33)
[2022-04-13] MEDS: 0.9 % Sodium Chloride 1,000 ML 999 ML IVCONT (21:34)
[2022-04-13 21:40] LABS: MANUAL DIFF FLAG NO
[2022-04-13 21:43] LABS: Basophils Percent Auto 1.3 % (0-2); Eosinophils Absolute Auto 0.1 X10*3/uL (0.0-0.4); Eosinophils Percent Auto 3.2 % (0-4); Hematocrit 30.1 % (37.0-47.0); Lymphocytes Absolute Auto 0.8 X10*3/uL (1.2-4.9); Mean Corpuscular HGB Conc 29.9 g/dl (31.0-35.0); Mean Corpuscular Hemoglobin 24.9 pg (27.0-33.0); Mean Corpuscular Volume 83.4 fL (80.0-98.0); Mean Platelet Volume 10.8 fL (9.4-12.3); Monocytes Absolute Auto 0.6 X10*3/uL (0.1-1.2); Monocytes Percent Auto 17.9 % (2-11); Neutrophils Absolute Auto 1.6 x10*3/uL (2.0-8.3); Neutrophils Percent Auto 52.6 % (45-73); Red Blood Count 3.61 X10*6/uL (4.20-5.50); Red Cell Distribution Width 18.3 % (11.0-16.0); White Blood Count 3.1 X10*3/uL (4.8-10.8)
[2022-04-13] MEDS: Folic Acid 1 MG in 0.9 % Sodium Chloride 50 ML 100.4 MG IV (21:45)
[2022-04-13 21:58] LABS: Platelet Count 76 X10*3/uL (160-400)
[2022-04-13 22:02] LABS: Alanine Aminotransferase 15 U/L (0-31); Albumin Level 3.3 g/dL (3.5-5.0); Alkaline Phosphatase 85 U/L (39-117); Anion Gap 12 (12-20); Aspartate Amino Transferase 37 U/L (5-31); Bilirubin Direct 0.7 mg/dL (0.0-0.5); Bilirubin Total 1.6 mg/dL (0.0-1.0); Blood Urea Nitrogen 6 mg/dL (9-16); Calcium 8.2 mg/dL (8.4-10.2); Carbon Dioxide 27 mmol/L (22-29); Chloride 104 mmol/L (96-108); Creatinine Clr Calc Pharmacy 90.7; Estimated Glomerular Filt Rate > 60; Ethanol < 10 mg/dL; Glucose Random 97 mg/dL (60-115); Lipase 35 U/L (8-78); Magnesium 1.3 mg/dL (1.6-2.6); Potassium 3.5 mmol/L (3.3-5.1); Sodium 139 mmol/L (135-145); Total Protein 6.3 g/dL (6.5-8.0)
[2022-04-13 22:21] LABS: Influenza A PCR NEGATIVE (Negative); Influenza B PCR NEGATIVE (Negative); Resp Syncy Virus RNA Qual PCR NEGATIVE (Negative); SARS COV2 PCR INHOUSE NEGATIVE (Negative)
[2022-04-13 22:26] LABS: INTERNATIONAL NORM RATIO 1.3 (0.9-1.1); Prothrombin Time 14.6 SEC (10.0-13.1)
[2022-04-13 22:29] LABS: Partial Thromboplastin Time 34.5 SEC (26.0-36.4)
--- NOTE | 2022-04-13 22:43 | P.HPHOSP_ITS ---
History of Present Illness Date of Service: 04/13/22 Chief Complaint: Hematemesis This is a 57-year-old with pertinent history of alcohol use disorder with alcoholic cirrhosis, mood disorder, essential hypertension who presents to the emergency department with nausea/vomiting and diarrhea. States she noticed bloo d in her vomitus couple of times through the day. Patient states she is interested in detox and wants to be admitted to her ER facility. She drinks significant quantity of vodka and mixed vodka drinks throughout the day. States her last drink was 13:00. Endorses tremors and shaking. She states she has not been taking any prescription medications for the last 2-3 months. She denies fever, chills, chest discomfort, palpitations, shortness of breath, changes in urinary habits. In the emergency department, CIWA was found to be 22. Low magnesium was noted Review of Systems Constitutional: Constitutional: Reports body ache(s), Reports lethargy and Reports malaise Cardiovascular: Cardiovascular: Reports no additional cardiovascular complaints Respiratory: Respiratory: Reports no additional respiratory complaints Gastrointestinal: Gastrointestinal: Reports abdominal pain, Reports diarrhea, Reports nausea and Reports hematemesis Genitourinary: Genitourinary: Reports no additional female genitourinary complaints Neurologic: Reports system reviewed and no additional complaints, except as documented [facility] Medical History Alcohol abuse with withdrawal Alcoholic cirrhosis of liver Anxiety Depression Hypertension Functional capacity: independent ambulation Family History Mother Pancreatic cancer Surgical History H/O foot surgery Social History Household Members: Significant Other Housing: Homeless Do you presently have visiting nurse or other home services: No Alcohol intake: current Alcohol intake frequency: 3 or more drinks per day A lcohol type: hard liquor Patient Tobacco Use Status: Former Tobacco user Substance Use Type: Marijuana Advance Directives: Yes Advance Directives on File: Yes Advance Directives Date on File: 03/11/21 service: No Current occupational status: disabled Meds Allergies Allergy/AdvReac Type Severity Reaction Status Date / Time Penicillins Allergy Mild Rash Verified 11/28/21 08:38 levofloxacin [From Levaquin] AdvReac Unknown Unknown Unverified 11/28/21 08:38 Sulfa (Sulfonamide AdvReac Unknown Unknown Unverified 11/28/21 08:38 Antibiotics) peanut AdvReac Anaphylaxis Verified 11/28/21 08:39 Peanut Butter AdvReac Anaphylaxis Verified 11/28/21 08:39 Active Medications: Current Medications Acetaminophen (Acetaminophen 325 Mg Tablet) 650 mg PO Q6H PRN PRN Reason: Pain, Mild (Pain Scale 1-3) Folic Acid (Folic Acid 1 Mg Tablet) 1 mg PO DAILY SANDRA Magnesium Sulfate (Magnesium Sulfate/H2o) 2 gm in 50 mls @ 25 mls/hr IV ONCE ONE Stop: 04/14/22 00:00 Thiamine HCl 100 mg/ Sodium (Chloride) 101 mls @ 202 mls/hr IV DAILY SANDRA Melatonin (Melatonin 3 Mg Tablet) 6 mg PO BEDTIME PRN PRN Reason: Insomnia Ondansetron HCl (Ondansetron Hcl 4 Mg/2 Ml Vial) 4 mg IVPUSH Q8H PRN PRN Reason: Nausea and Vomiting Pharmacy Consult (Consult Rx Etoh Phenob Im/Po) 1 each MISCELLANE ONCE PRN; Protocol PRN Reason: Consult order Pharmacy Consult (Consult Rx Perform Med Rec) 1 each MISCELLANE ONCE PRN PRN Reason: Consult order Phenobarbital (Phenobarbital 30 Mg Tablet) 30 mg PO BID SANDRA; Protocol Stop: 04/15/22 21:01 Phenobarbital (Phenobarbital 15 Mg Tablet) 15 mg PO BID SANDRA; Protocol Stop: 04/17/22 21:01 Phenobarbital (Phenobarbital 15 Mg Tablet) 15 mg PO DAILY SANDRA; Protocol Stop: 04/19/22 09:01 Phenobarbital Sodium (Phenobarbital Sodium 130 Mg/Ml Vial Im Q3hx2) 158.6 mg IM Q3H SANDRA; Protocol Stop: 04/14/22 04:31 Sodium Chloride (0.9 % Sodium Chloride Flush 3 Ml Syringe) 3 ml IVFLUSH QSHIFT [facility] Home Medications Medication Instructions Recorded Confirmed Last Taken Type folic acid 1 mg tablet 1 tab PO DAILY 03/02/21 11/25/21 11/22/21 History furosemide 20 mg tablet 1 tab PO DAILY 03/02/21 11/25/21 11/22/21 History nadolol 20 mg tablet 1 tab PO DAILY 03/02/21 11/25/21 11/22/21 History naltrexone 50 mg tablet 1 tab PO DAILY 03/02/21 11/25/21 11/22/21 History melatonin 3 mg tablet 1 tab PO BEDTIME 10/18/21 11/25/21 11/22/21 History venlafaxine 37.5 mg 1 cap PO DAILY 10/18/21 11/25/21 11/22/21 History capsule,extended release 24 hr magnesium oxide 400 mg (241.3 mg 400 mg PO DAILY 11/25/21 11/25/21 11/22/21 History magnesium) tablet spironolactone 50 mg tablet 1 tab PO DAILY 11/25/21 11/25/21 11/22/21 History Physical Exam Vital Signs and Narrative: Vital Signs: Last Vital Signs Temp 97.9 F 04/13/22 20:45 Pulse 76 04/13/22 20:45 Resp 18 04/13/22 20:45 BP 126/62 04/13/22 20:45 Pulse Ox 97 04/13/22 20:45 O2 Del Method 04/13/22 20:45 BMI result Body Mass Index 30.2 Middle-aged female lying in bed in mild distress Neck supple, no JVD Regular rate and rhythm, S1-S2 heard Regular breath sounds bilaterally, no wheezing or crackles appreciated Abdomen with generalized tenderness, no guarding, no rigidity, no rebound tenderness Patient is awake, alert and oriented to self, place, time and person ; no focal motor deficit Psych: Normal mood No pedal edema Results Labs 04/13/22 21:24 04/13/22 21:24 Labs: Laboratory Results - last 24 hr 04/13/22 04/13/22 04/13/22 21:24 21:24 21:24 MCV 83.4 MCH 24.9 L MCHC 29.9 L RDW 18.3 H Plt Count 76 L D MPV 10.8 Immature Gran % (Auto) 0.0 Neut % (Auto) 52.6 Lymph % (Auto) 25.0 [place] % (Auto) 17.9 H Eos % (Auto) 3.2 Baso % (Auto) 1.3 Lymph # (Auto) 0.8 L [place] # (Auto) 0.6 Eos # (Auto) 0.1 Baso # (Auto) 0.0 Abs Immat Gran (auto) 0.00 Absolute Neuts (auto) 1.6 L Absolute Nucleated RBC 0.000 Nucleated RBC % (auto) 0.0 PT 14.6 H INR 1.3 H APTT 34.5 Anion Gap 12 Estim Creat Clear Calc 90.7 Estimated GFR > 60 Random Glucose 97 Calcium 8.2 L Magnesium 1.3 L* Total Bilirubin 1.6 H Direct Bilirubin 0.7 H AST 37 H ALT 15 Alkaline Phosphatase 85 Troponin I High Sens Total Protein 6.3 L Albumin 3.3 L Lipase 35 Ethyl Alcohol < 10 04/13/22 21:24 MCV MCH MCHC RDW Plt Count MPV Immature Gran % (Auto) Neut % (Auto) Lymph % (Auto) [place] % (Auto) Eos % (Auto) Baso % (Auto) Lymph # (Auto) [place] # (Auto) Eos # (Auto) Baso # (Auto) Abs Immat Gran (auto) Absolute Neuts (auto) Absolute Nucleated RBC Nucleated RBC % (auto) PT INR APTT Anion Gap Estim Creat Clear Calc Estimated GFR Random Glucose Calcium Magnesium Total Bilirubin Direct Bilirubin AST ALT Alkaline Phosphatase Troponin I High Sens 7.0 Total Protein Albumin Lipase Ethyl Alcohol Assessment and Plan (1) Hematemesis: Status: Acute Plan This is a 57-year-old with pertinent history of alcohol use disorder with alcoholic cirrhosis, mood disorder, essential hypertension who presents to the emergency department with nausea/vomiting and diarrhea. #. Hematemesis: Does have history of esophageal varices. IV Protonix 80 mg x 1. Consulting GI, appreciate assistance. Will keep NPO after midnight. Resuscitated with IV crystalloid in the ER #. Alcohol use disorder: Initiated on phenobarb protocol. Consulting CARE team and addiction team. Initiating thiamine and folic acid. #. Mood disorder: Patient states she is off her medications for the last 3 months. Will consult psych to optimize #. Essential hypertension: Hold antihypertensives in the setting of hematemesis #. Alcoholic cirrhosis: Hold diuretics the setting of hematemesis. Obtaining ultrasound #. Hypomagnesemia: Due to alcoholism and GI losses. Repleted #. Chronic anemia and thrombocytopenia in the setting of alcoholism and liver disease DVT prophylaxis: Mechanical NPO after midnight Full code Admit as inpatient and will require two night minimum hospital stay for close monitoring of H&H and hemodynamics. Specialist consult pending Time Spent With Patient Time: Total time managing care of this patient today ____ minutes. Quality Stroke Does the patient have a stroke diagnosis?: No VTE Prior VTE?: No VTE Risk Level:: Medical - moderate - high VTE Device Contraindication: N/A - Device Ordered VTE Drug Contraindication: Treatment Not Indicated
[2022-04-13] MEDS: Magnesium Sulfate/H2O 2 GM/50 ML PIGGYBACK IV (23:06)
[2022-04-13] MEDS: Pantoprazole Sodium 40 MG/10 ML VIAL 80 MG IVPUSH (23:07)
[2022-04-13] MEDS: PHENobarbitaL sodium 130 MG/ML IM ONCE 211.9 MG IM (23:14)
[2022-04-14] MEDS: PHENobarbitaL sodium 130 MG/ML VIAL IM Q3Hx2 158.6 MG IM ×2 (01:18→04:15)
[2022-04-14] MEDS: 0.9 % Sodium Chloride 1,000 ML 75 ML IVCONT ×2 (01:18→13:08)
[2022-04-14 02:14] VITALS: BP 137/66; PULSE 81; RESP 20; TEMP 36.3; O2SAT 95
[2022-04-14 02:56] LABS: Basophils Percent Auto 1.2 % (0-2); Eosinophils Absolute Auto 0.1 X10*3/uL (0.0-0.4); Eosinophils Percent Auto 5.7 % (0-4); Hematocrit 29.2 % (37.0-47.0); Hemoglobin 8.7 g/dl (12.0-16.0); Imm Gran Abs Auto 0.01 X10*3/uL (0.00-0.03); Imm Gran Pct Auto 0.4 % (0.0-0.4); Lymphocytes Absolute Auto 0.6 X10*3/uL (1.2-4.9); Lymphocytes Percent Auto 23.9 % (20-40); MANUAL DIFF FLAG SCAN; Mean Corpuscular HGB Conc 29.8 g/dl (31.0-35.0); Mean Corpuscular Hemoglobin 24.4 pg (27.0-33.0); Mean Corpuscular Volume 81.8 fL (80.0-98.0); Mean Platelet Volume 10.6 fL (9.4-12.3); Monocytes Absolute Auto 0.5 X10*3/uL (0.1-1.2); Monocytes Percent Auto 20.2 % (2-11); Neutrophils Absolute Auto 1.2 x10*3/uL (2.0-8.3); Neutrophils Percent Auto 48.6 % (45-73); Red Blood Count 3.57 X10*6/uL (4.20-5.50); Red Cell Distribution Width 18.4 % (11.0-16.0); SCAN SMEAR FLAG 1
[2022-04-14 02:57] LABS: Platelet Count 66 X10*3/uL (160-400); White Blood Count 2.5 X10*3/uL (4.8-10.8)
[2022-04-14 03:14] LABS: Anion Gap 13 (12-20); Blood Urea Nitrogen 5 mg/dL (9-16); Calcium 7.8 mg/dL (8.4-10.2); Carbon Dioxide 23 mmol/L (22-29); Chloride 108 mmol/L (96-108); Creatinine Clr Calc Pharmacy 86.1; Estimated Glomerular Filt Rate > 60; Glucose Random 92 mg/dL (60-115); Potassium 3.2 mmol/L (3.3-5.1); SLIDE REVIEW VERIFIED; Sodium 141 mmol/L (135-145)
[2022-04-14 04:37] LABS: Appearance Urine Clear; Color Urine Yellow; Glucose Urine UA Negative (Negative); Leukocyte Esterase Urine Small (1+) (Negative); Nitrite Urine Positive (Negative); UMIC TRIGGER UACC YES; Urine Blood Negative (Negative); Urine Ketones Negative (Negative); Urine Protein Negative (Neg-Trace)
[2022-04-14 04:46] LABS: Amphetamine Screen Urine Not Detected (Not Detect); Barbiturates, Urine POSITIVE (Not Detect); Benzodiazepines Screen Urine POSITIVE (Not Detect); Cannabinoid Screen Urine Not Detected (Not Detect); Cocaine Screen Urine Not Detected (Not Detect); Fentanyl, urine Not Detected (Not Detect); Opiate Screen Urine Not Detected (Not Detect); Phencyclidine Screen Urine Not Detected (Not Detect)
[2022-04-14 04:50] LABS: Bacteria Urine 4+ (None Seen); Hyaline Casts Urine 0-2 /LPF (0-2); RBC Urine 0-2 /HPF (0-2); Squamous Epithelial Cell Urine 0-2 /HPF (0-2); UACC Culture Trigger YES; WBC Urine 0-5 /HPF (0-5)
[2022-04-14] MEDS: Folic Acid 1 MG TABLET PO (07:46)
[2022-04-14] MEDS: PHENobarbitaL 30 MG TABLET PO ×2 (07:46→21:30)
[2022-04-14] MEDS: Thiamine HCL 100 MG in 0.9 % Sodium Chloride 100 ML 202 MG IV (07:46)
[2022-04-14] MEDS: Pantoprazole Sodium 40 MG/10 ML VIAL IVPUSH ×2 (07:46→16:27)
[2022-04-14] MEDS: 0.9 % Sodium Chloride Flush 3 ML SYRINGE IVFLUSH (07:53)
[2022-04-14 08:11] VITALS: BP 138/70; PULSE 80; RESP 15; O2SAT 96
--- NOTE | 2022-04-14 09:01 | PHA.MEDREC ---
Pharmacy Consult ? Medication Reconciliation Pharmacy has completed the medication reconciliation.
[2022-04-14] MEDS: Magnesium Oxide 400 MG TABLET PO (09:42)
--- NOTE | 2022-04-14 09:55 | HO.PM.IMPN ---
Subjective Subjective Date of Service: 04/14/22 Interval History: withdrawal improving no further hemateemsis Physical Exam Vital Signs: Vital Signs: Last Vital Signs Temp 97.3 F 04/14/22 02:14 Pulse 80 04/14/22 08:11 Resp 15 04/14/22 08:11 BP 138/70 04/14/22 08:11 Pulse Ox 96 04/14/22 08:11 O2 Del Method 04/14/22 08:11 BMI result Body Mass Index 30.2 General: AO X 3, no acute distress Resp: CTA bilateral, no accessory muscles used CVS: S1,S2,RRR GI: soft, non tender, non distended Neuro: motor grossly intact, alert Psych: appropriate affect, appropriate insight Objective Data Active Medications Acetaminophen (Acetaminophen 325 Mg Tablet) 650 mg PO Q6H PRN PRN Reason: Pain, Mild (Pain Scale 1-3) Buspirone HCl (Buspirone Hcl 10 Mg Tablet) 10 mg PO BID [facility] Folic Acid (Folic Acid 1 Mg Tablet) 1 mg PO DAILY [facility] Last Admin: 04/14/22 07:46 Dose: 1 mg Documented By: KAREN Folic Acid (Folic Acid 1 Mg Tablet) 1 mg PO DAILY [facility] Last Admin: 04/14/22 09:43 Dose: Not Given Documented By: KAREN Non-Admin Reason: See Note Thiamine HCl 100 mg/ Sodium (Chloride) 101 mls @ 202 mls/hr IV DAILY [facility] Last Admin: 04/14/22 07:46 Dose: 202 mls/hr Documented By: KAREN Sodium Chloride (Ns) 1,000 mls @ 75 mls/hr IVCONT .[id number] [facility] Last Admin: 04/14/22 01:18 Dose: 75 mls/hr Documented By: VY Magnesium Oxide (Magnesium Oxide 400 Mg Tablet) 400 mg PO DAILY [facility] Last Admin: 04/14/22 09:42 Dose: 400 mg Documented By: KAREN Melatonin (Melatonin 3 Mg Tablet) 6 mg PO BEDTIME PRN PRN Reason: Insomnia Ondansetron HCl (Ondansetron Hcl 4 Mg/2 Ml Vial) 4 mg IVPUSH Q8H PRN PRN Reason: Nausea and Vomiting Pantoprazole Sodium (Pantoprazole Sodium 40 Mg/10 Ml Vial) 40 mg IVPUSH BID@0630,1630 [facility] Last Admin: 04/14/22 07:46 Dose: 40 mg Documented By: KAREN Pharmacy Consult (Consult Rx Etoh Phenob Im/Po) 1 each MISCELLANE ONCE PRN; Protocol PRN Reason: Consult order Pharmacy Consult (Consult Rx Perform Med Rec) 1 each MISCELLANE ONCE PRN PRN Reason: Consult order Phenobarbital (Phenobarbital 30 Mg Tablet) 30 mg PO BID [facility]; Protocol Stop: 04/15/22 21:01 Last Admin: 04/14/22 07:46 Dose: 30 mg Documented By: KAREN Phenobarbital (Phenobarbital 15 Mg Tablet) 15 mg PO BID [facility]; Protocol Stop: 04/17/22 21:01 Phenobarbital (Phenobarbital 15 Mg Tablet) 15 mg PO DAILY [facility]; Protocol Stop: 04/19/22 09:01 Rifaximin (Rifaximin 550 Mg Tablet) 550 mg PO BID [facility] Sodium Chloride (0.9 % Sodium Chloride Flush 3 Ml Syringe) 3 ml IVFLUSH QSHIFT [facility] Last Admin: 04/14/22 07:53 Dose: 3 ml Documented By: KAREN Venlafaxine HCl (Venlafaxine Hcl Er 37.5 Mg Cap.Er.24h) 37.5 mg PO DAILY [facility] Labs 04/14/22 02:51 04/14/22 02:51 Labs: Laboratory Results - last 24 hr 04/13/22 04/13/22 04/13/22 21:24 21:24 21:24 MCV 83.4 MCH 24.9 L MCHC 29.9 L RDW 18.3 H Plt Count 76 L D MPV 10.8 Immature Gran % (Auto) 0.0 Neut % (Auto) 52.6 Lymph % (Auto) 25.0 [place] % (Auto) 17.9 H Eos % (Auto) 3.2 Baso % (Auto) 1.3 Lymph # (Auto) 0.[address] [place] # (Auto) 0.6 Eos # (Auto) 0.1 Baso # (Auto) 0.0 Abs Immat Gran (auto) 0.00 Absolute Neuts (auto) 1.6 L Absolute Nucleated RBC 0.000 Nucleated RBC % (auto) 0.0 Smear Tech's Comments PT 14.6 H INR 1.3 H APTT 34.5 Anion Gap 12 Estim Creat Clear Calc 90.7 Estimated GFR > 60 Random Glucose 97 Calcium 8.2 L Magnesium 1.3 L* Total Bilirubin 1.6 H Direct Bilirubin 0.7 H AST 37 H ALT 15 Alkaline Phosphatase 85 Troponin I High Sens Total Protein 6.3 L Albumin 3.3 L Lipase 35 Urine Color Urine Appearance Urine pH Ur Specific [place] Urine Protein Urine Glucose (UA) Urine Ketones Urine Blood Urine Nitrite Ur Leukocyte Esterase Urine RBC Urine WBC Ur Squamous Epith Cells Urine Bacteria Hyaline Casts Urine Opiates Screen Urine Fentanyl Screen Ur Barbiturates Screen Ur Phencyclidine Scrn Ur Amphetamines Screen U Benzodiazepines Scrn Urine Cocaine Screen U Marijuana (THC) Screen Ethyl Alcohol < 10 Influenza Type A (PCR) Influenza Type B (PCR) RSV RNA Qual (PCR) SARS-CoV-2 RNA (RT-PCR) 04/13/22 04/13/22 04/14/22 21:24 21:24 02:51 MCV 81.8 MCH 24.4 L MCHC 29.8 L RDW 18.4 H Plt Count 66 L MPV 10.6 Immature Gran % (Auto) 0.4 Neut % (Auto) 48.6 Lymph % (Auto) 23.9 [place] % (Auto) 20.2 H Eos % (Auto) 5.7 H Baso % (Auto) 1.2 Lymph # (Auto) 0.[address] [place] # (Auto) 0.5 Eos # (Auto) 0.1 Baso # (Auto) 0.0 Abs Immat Gran (auto) 0.01 Absolute Neuts (auto) 1.2 L Absolute Nucleated RBC 0.000 Nucleated RBC % (auto) 0.0 Smear Tech's Comments VERIFIED PT INR APTT Anion Gap Estim Creat Clear Calc Estimated GFR Random Glucose Calcium Magnesium Total Bilirubin Direct Bilirubin AST ALT Alkaline Phosphatase Troponin I High Sens 7.0 Total Protein Albumin Lipase Urine Color Urine Appearance Urine pH Ur Specific [place] Urine Protein Urine Glucose (UA) Urine Ketones Urine Blood Urine Nitrite Ur Leukocyte Esterase Urine RBC Urine WBC Ur Squamous Epith Cells Urine Bacteria Hyaline Casts Urine Opiates Screen Urine Fentanyl Screen Ur Barbiturates Screen Ur Phencyclidine Scrn Ur Amphetamines Screen U Benzodiazepines Scrn Urine Cocaine Screen U Marijuana (THC) Screen Ethyl Alcohol Influenza Type A (PCR) NEGATIVE Influenza Type B (PCR) NEGATIVE RSV RNA Qual (PCR) NEGATIVE SARS-CoV-2 RNA (RT-PCR) NEGATIVE 04/14/22 04/14/22 04/14/22 02:51 04:31 04:31 MCV MCH MCHC RDW Plt Count MPV Immature Gran % (Auto) Neut % (Auto) Lymph % (Auto) [place] % (Auto) Eos % (Auto) Baso % (Auto) Lymph # (Auto) [place] # (Auto) Eos # (Auto) Baso # (Auto) Abs Immat Gran (auto) Absolute Neuts (auto) Absolute Nucleated RBC Nucleated RBC % (auto) Smear Tech's Comments PT INR APTT Anion Gap 13 Estim Creat Clear Calc 86.1 Estimated GFR > 60 Random Glucose 92 Calcium 7.8 L Magnesium Total Bilirubin Direct Bilirubin AST ALT Alkaline Phosphatase Troponin I High Sens Total Protein Albumin Lipase Urine Color Yellow Urine Appearance Clear Urine pH 7.0 Ur Specific [place] 1.010 Urine Protein Negative Urine Glucose (UA) Negative Urine Ketones Negative Urine Blood Negative Urine Nitrite Positive H Ur Leukocyte Esterase Small (1+) H Urine RBC 0-2 Urine WBC 0-5 Ur Squamous Epith Cells 0-2 Urine Bacteria 4+ Hyaline Casts 0-2 Urine Opiates Screen Not Detected Urine Fentanyl Screen Not Detected Ur Barbiturates Screen POSITIVE H Ur Phencyclidine Scrn Not Detected Ur Amphetamines Screen Not Detected U Benzodiazepines Scrn POSITIVE H Urine Cocaine Screen Not Detected U Marijuana (THC) Screen Not Detected Ethyl Alcohol Influenza Type A (PCR) Influenza Type B (PCR) RSV RNA Qual (PCR) SARS-CoV-2 RNA (RT-PCR) Assessment and Plan (1) Hematemesis: Status: Acute Plan 57-year-old with pertinent history of alcohol use disorder with alcoholic cirrhosis, mood disorder, essential hypertension who presented to the emergency department with nausea/vomiting and diarrhea, hematemesis. alcohol dependence with withdrawal pheonobarb, ciwa alcohol cirrhosis complicated by pancytopenia hold aldactone with ?bleed rifaximin Hematemesis Does have history of esophageal varices.? iv ppi, monitor Mood disorder buspar, effexor htn holding while ?bleed Hypomagnesemia replace and monitor DVT prophylaxis:? Mechanical due to gi bleed Full code reason for continued hospitalization:gi bleed Time Spent With Patient Time: Total time managing care of this patient today ____ minutes. Quality Stroke Does the patient have a stroke diagnosis?: No VTE Prior VTE?: No VTE Risk Level:: Medical - moderate - high VTE Device Contraindication: N/A - Device Ordered VTE Drug Contraindication: Treatment Not Indicated
--- NOTE | 2022-04-14 10:00 | MHC.EDTECH ---
Pt requested a new Purewick. I gave her pericare and replaced it at 0830. At 0930 Pt complained it had leaked. I went cleaned and repositioned the pt.
--- NOTE | 2022-04-14 10:31 | MHC.EDTECH ---
Pt was assisted with using the bedpan. Pt urinated and repositioned fine.
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
--- NOTE | 2022-04-14 13:22 | PC.NURSE ---
pt tresa wood, repeatedly has asked about eating, steaks, pizza, milk shakes etc, repeatedly informed of NPO status, dr Sánchez changed order just now to clears and kitchen was called to expedite.
--- NOTE | 2022-04-14 14:37 | MHC.CM.PN ---
PT REPORTS SHE LIVES IN A HOTEL OR CAR WITH HER BOYFRIEND DEPENDING ON HOW MUCH MONEY THEY HAVE SHE REPORTS SHE USES A CANE OR WALKER AT [facility] BUT HER WALKER IS IN STORAGE SHE DOES NOT HAVE A PCP HCP ON FILE SHE SAYS SHE IS COVID VAX BUT IS UNSURE HOW MANY DOSES SHE HAS RECEIVED IMM DELIVERED, COPY SENT TO [facility] PT REPORTS SHE CAN BARELY GET AROUND AND FEELS SHE SHOULD GO TO A SNF FOR SOME TIME DCP TBD PENDING PT EVAL STR VS RETURN TO PRIOR LIVING SITUATION TRANSPORT TBD BY DISPO
--- NOTE | 2022-04-14 15:12 | PC.NURSE ---
assumed care of patient. patient requests lights to be dimmed for nap. call lopes placed within reach.
--- NOTE | 2022-04-14 15:59 | HO.ADDICT_ITS ---
History of Present Illness Date of Service: 04/14/2022 Chief Complaint: alcohol withdrawal Reason for Consult: alcohol use disorder HPI Narrative: Patient is a 57 year old female with long history of alcohol use disorder and cirrhosis of the liver currently medically admitted with alcohol withdrawal Seen in room 14 of main ED. Patient reports she has been staying in her car due to discord in her relationship. She reports drinking 1/2 pint of 100 proof schnapps daily. Patient expressing frustration about various things, including being hungry. Thought process tangential as she spoke about various topics--living in her car, her sister who is a preacher in another state, the conditions of several shelters in the area. She identified her housing situation as a significant challenge for her, however when asked if a treatment setting for alcohol use was of interest to her, she declined. She also reported no interest in addressing alcohol use at this time. Review of Systems Constitutional: Reports as per HPI Diagnostics Vital Signs (24Hr): Vital Signs - 24 hr 04/13/22 20:45 04/14/22 02:14 04/14/22 08:11 Temperature 97.9 F 97.3 F Pulse Rate 76 81 80 Respiratory Rate 18 20 15 Blood Pressure 126/62 137/66 138/70 Pulse Oximetry 97 95 96 Oxygen Delivery Method Room Air Room Air Room Air BMI result Body Mass Index 30.2 Labs 04/14/22 02:51 04/14/22 02:51 Labs: Laboratory Results - last 48 hr 04/13/22 04/13/22 04/13/22 21:24 21:24 21:24 WBC 3.1 L RBC 3.61 L Hgb 9.0 L Hct 30.1 L MCV 83.4 MCH 24.9 L MCHC 29.9 L RDW 18.3 H Plt Count 76 L D MPV 10.8 Immature Gran % (Auto) 0.0 Neut % (Auto) 52.6 Lymph % (Auto) 25.0 [place] % (Auto) 17.9 H Eos % (Auto) 3.2 Baso % (Auto) 1.3 Lymph # (Auto) 0.8 L [place] # (Auto) 0.6 Eos # (Auto) 0.1 Baso # (Auto) 0.0 Abs Immat Gran (auto) 0.00 Absolute Neuts (auto) 1.6 L Absolute Nucleated RBC 0.000 Nucleated RBC % (auto) 0.0 Smear Tech's Comments PT 14.6 H INR 1.3 H APTT 34.5 Sodium 139 Potassium 3.5 Chloride 104 Carbon Dioxide 27 Anion Gap 12 BUN 6 L Creatinine 0.56 Estim Creat Clear Calc 90.7 Estimated GFR > 60 Random Glucose 97 Calcium 8.2 L Magnesium 1.3 L* Total Bilirubin 1.6 H Direct Bilirubin 0.7 H AST 37 H ALT 15 Alkaline Phosphatase 85 Troponin I High Sens Total Protein 6.3 L Albumin 3.3 L Lipase 35 Urine Color Urine Appearance Urine pH Ur Specific [place] Urine Protein Urine Glucose (UA) Urine Ketones Urine Blood Urine Nitrite Ur Leukocyte Esterase Urine RBC Urine WBC Ur Squamous Epith Cells Urine Bacteria Hyaline Casts Urine Opiates Screen Urine Fentanyl Screen Ur Barbiturates Screen Ur Phencyclidine Scrn Ur Amphetamines Screen U Benzodiazepines Scrn Urine Cocaine Screen U Marijuana (THC) Screen Ethyl Alcohol < 10 Influenza Type A (PCR) Influenza Type B (PCR) RSV RNA Qual (PCR) SARS-CoV-2 RNA (RT-PCR) 04/13/22 04/13/22 04/14/22 21:24 21:24 02:51 WBC 2.5 L RBC 3.57 L Hgb 8.7 L Hct 29.2 L MCV 81.8 MCH 24.4 L MCHC 29.8 L RDW 18.4 H Plt Count 66 L MPV 10.6 Immature Gran % (Auto) 0.4 Neut % (Auto) 48.6 Lymph % (Auto) 23.9 [place] % (Auto) 20.2 H Eos % (Auto) 5.7 H Baso % (Auto) 1.2 Lymph # (Auto) 0.6 L [place] # (Auto) 0.5 Eos # (Auto) 0.1 Baso # (Auto) 0.0 Abs Immat Gran (auto) 0.01 Absolute Neuts (auto) 1.2 L Absolute Nucleated RBC 0.000 Nucleated RBC % (auto) 0.0 Smear Tech's Comments VERIFIED PT INR APTT Sodium Potassium Chloride Carbon Dioxide Anion Gap BUN Creatinine Estim Creat Clear Calc Estimated GFR Random Glucose Calcium Magnesium Total Bilirubin Direct Bilirubin AST ALT Alkaline Phosphatase Troponin I High Sens 7.0 Total Protein Albumin Lipase Urine Color Urine Appearance Urine pH Ur Specific [place] Urine Protein Urine Glucose (UA) Urine Ketones Urine Blood Urine Nitrite Ur Leukocyte Esterase Urine RBC Urine WBC Ur Squamous Epith Cells Urine Bacteria Hyaline Casts Urine Opiates Screen Urine Fentanyl Screen Ur Barbiturates Screen Ur Phencyclidine Scrn Ur Amphetamines Screen U Benzodiazepines Scrn Urine Cocaine Screen U Marijuana (THC) Screen Ethyl Alcohol Influenza Type A (PCR) NEGATIVE Influenza Type B (PCR) NEGATIVE RSV RNA Qual (PCR) NEGATIVE SARS-CoV-2 RNA (RT-PCR) NEGATIVE 04/14/22 04/14/22 04/14/22 02:51 04:31 04:31 WBC RBC Hgb Hct MCV MCH MCHC RDW Plt Count MPV Immature Gran % (Auto) Neut % (Auto) Lymph % (Auto) [place] % (Auto) Eos % (Auto) Baso % (Auto) Lymph # (Auto) [place] # (Auto) Eos # (Auto) Baso # (Auto) Abs Immat Gran (auto) Absolute Neuts (auto) Absolute Nucleated RBC Nucleated RBC % (auto) Smear Tech's Comments PT INR APTT Sodium 141 Potassium 3.2 L Chloride 108 Carbon Dioxide 23 Anion Gap 13 BUN 5 L Creatinine 0.59 Estim Creat Clear Calc 86.1 Estimated GFR > 60 Random Glucose 92 Calcium 7.8 L Magnesium Total Bilirubin Direct Bilirubin AST ALT Alkaline Phosphatase Troponin I High Sens Total Protein Albumin Lipase Urine Color Yellow Urine Appearance Clear Urine pH 7.0 Ur Specific [place] 1.010 Urine Protein Negative Urine Glucose (UA) Negative Urine Ketones Negative Urine Blood Negative Urine Nitrite Positive H Ur Leukocyte Esterase Small (1+) H Urine RBC 0-2 Urine WBC 0-5 Ur Squamous Epith Cells 0-2 Urine Bacteria 4+ Hyaline Casts 0-2 Urine Opiates Screen Not Detected Urine Fentanyl Screen Not Detected Ur Barbiturates Screen POSITIVE H Ur Phencyclidine Scrn Not Detected Ur Amphetamines Screen Not Detected U Benzodiazepines Scrn POSITIVE H Urine Cocaine Screen Not Detected U Marijuana (THC) Screen Not Detected Ethyl Alcohol Influenza Type A (PCR) Influenza Type B (PCR) RSV RNA Qual (PCR) SARS-CoV-2 RNA (RT-PCR) Imaging Radiology Impressions: ITS Impressions Abdomen Ultrasound 04/14/22 08:43 IMPRESSION: No acute finding. Findings consistent with reported history of hepatic cirrhosis. Multiple, 2.5 cm or less, relatively hypoechoic structures within the liver, at least 2 of which appear solid, not further characterized. Hepatocellular carcinoma cannot be confirmed or excluded. Correlation with AFP and MRI are recommended for further evaluation if clinically indicated. Findings consistent with previously identified splenorenal shunt, consistent with portal hypertension. No evidence of ascites. Spleen upper normal in size. Cholelithiasis. Suspect mild diffuse gallbladder wall thickening, nonspecific. Approximately 2 cm, fluid-containing structure with possible mural nodularity and internal septation and contiguous with the fundus of the gallbladder. Differential diagnosis includes, but is not limited to, phrygian cap containing debris, neoplasm, etc. This finding may be evaluated at the time of MRI. Mental Status Exam Mental Status Exam Patient Appearance: Appropriate Level of Consciousness: Awake and Alert Patient Behavior: Talkative Mood Description: Appropriate Thought Content: positive for Tangential Judgement: Fair Medications Medications Current Medications Acetaminophen (Acetaminophen 325 Mg Tablet) 650 mg PO Q6H PRN PRN Reason: Pain, Mild (Pain Scale 1-3) Buspirone HCl (Buspirone Hcl 10 Mg Tablet) 10 mg PO BID [facility] Folic Acid (Folic Acid 1 Mg Tablet) 1 mg PO DAILY [facility] Last Admin: 04/14/22 07:46 Dose: 1 mg Folic Acid (Folic Acid 1 Mg Tablet) 1 mg PO DAILY [facility] Last Admin: 04/14/22 09:43 Dose: Not Given Thiamine HCl 100 mg/ Sodium (Chloride) 101 mls @ 202 mls/hr IV DAILY [facility] Last Infusion: 04/14/22 12:23 Dose: Infused Sodium Chloride (Ns) 1,000 mls @ 75 mls/hr IVCONT .[id number] [facility] Last Admin: 04/14/22 13:08 Dose: 75 mls/hr Magnesium Oxide (Magnesium Oxide 400 Mg Tablet) 400 mg PO DAILY [facility] Last Admin: 04/14/22 09:42 Dose: 400 mg Melatonin (Melatonin 3 Mg Tablet) 6 mg PO BEDTIME PRN PRN Reason: Insomnia Ondansetron HCl (Ondansetron Hcl 4 Mg/2 Ml Vial) 4 mg IVPUSH Q8H PRN PRN Reason: Nausea and Vomiting Pantoprazole Sodium (Pantoprazole Sodium 40 Mg/10 Ml Vial) 40 mg IVPUSH BID@0630,1630 [facility] Last Admin: 04/14/22 07:46 Dose: 40 mg Pharmacy Consult (Consult Rx Etoh Phenob Im/Po) 1 each MISCELLANE ONCE PRN; Protocol PRN Reason: Consult order Pharmacy Consult (Consult Rx Perform Med Rec) 1 each MISCELLANE ONCE PRN PRN Reason: Consult order Phenobarbital (Phenobarbital 30 Mg Tablet) 30 mg PO BID [facility]; Protocol Stop: 04/15/22 21:01 Last Admin: 04/14/22 07:46 Dose: 30 mg Phenobarbital (Phenobarbital 15 Mg Tablet) 15 mg PO BID [facility]; Protocol Stop: 04/17/22 21:01 Phenobarbital (Phenobarbital 15 Mg Tablet) 15 mg PO DAILY [facility]; Protocol Stop: 04/19/22 09:01 Rifaximin (Rifaximin 550 Mg Tablet) 550 mg PO BID [facility] Sodium Chloride (0.9 % Sodium Chloride Flush 3 Ml Syringe) 3 ml IVFLUSH QSHIFT [facility] Last Admin: 04/14/22 07:53 Dose: 3 ml Sucralfate (Sucralfate Oral Suspension 1 Gm/10 Ml Oral.Susp) 1 gm PO QIDACHS [facility] Venlafaxine HCl (Venlafaxine Hcl Er 37.5 Mg Cap.Er.24h) 37.5 mg PO DAILY [facility] Allergies Allergies Allergy/AdvReac Type Severity Reaction Status Date / Time Penicillins Allergy Mild Rash Verified 11/28/21 08:38 levofloxacin [From Levaquin] AdvReac Unknown Unknown Unverified 11/28/21 08:38 Sulfa (Sulfonamide AdvReac Unknown Unknown Unverified 11/28/21 08:38 Antibiotics) peanut AdvReac Anaphylaxis Verified 11/28/21 08:39 Peanut Butter AdvReac Anaphylaxis Verified 11/28/21 08:39 Assessment & Plan Assessment & Plan (1) Alcohol use disorder, severe, dependence: Status: Acute Code(s): F10.20 - Alcohol dependence, uncomplicated Assessment and Plan: * patient declines support at this time * will check back in if patient remains admitted Total time managing care of this patient today __20__ minutes. PMFSH Past Medical History Medical History Alcohol abuse with withdrawal Alcoholic cirrhosis of liver Anxiety Depression Hypertension Family History Family History Mother Pancreatic cancer Surgical History Surgical History H/O foot surgery Social History Social History Household Members: Significant Other Housing: Homeless Do you presently have visiting nurse or other home services: No Alcohol intake: current Alcohol intake frequency: 3 or more drinks per day Alcohol type: hard liquor Patient Tobacco Use Status: Former Tobacco user Smoked in Last 30 Days: No Use of substances other than those prescribed or required for medical reasons: No Substance Use Type: Marijuana Advance Directives: Yes Advance Directives on File: Yes Advance Directives Date on File: 03/11/21 Nutrition Risks: No Nutritional Risk Patient : No service: No Current occupational status: unemployed
[2022-04-14 16:25] VITALS: BP 123/57; PULSE 87; RESP 16; O2SAT 98
[2022-04-14] MEDS: Sucralfate Oral Suspension 1 GM/10 ML ORAL.SUSP PO ×2 (16:27→21:31)
--- NOTE | 2022-04-14 16:29 | PM.PSYCN ---
History of Present Illness Date of Service: 04/14/2022 Chief Complaint: alcohol withdrawal Reason for Consult: depression/alcohol use Requesting physician: Elliot Sánchez Discussed with referring provider: Yes Sources of Information: patient interviewed, chart reviewed and crisis/core team assessment reviewed HPI Narrative: Ms. Rodriges is a 57 year-old woman with hx MDD, alcohol use disorder who self presented to [facility] alcohol related gastritis, admitted for alcohol withdrawal. She is currently on phenobarbital protocol and thiamine. Psychiatry consult to assess depression. Pt seen in ED bed 14. Pt reports reports increase anxious mood and sadness related to end of relationship of 20 years. She reports she currently does not have place to live. She reports she wouldn't feel safe in a senior living. She denies SI/HI. No hx of VH/AH. She reports she has struggled with alcohol use since she was in her teens. She declines any referrals for CSS or dual dx treatment. She reports her PCP was prescribing effexor and gabapentin which she reports were helpful for mood. No clear hx of hypomania or jyothi, pt mostly treated with antidepressants with good effect.Pt reports poor sleep- better with gabapentin. Appetite is fair. Past Psychiatric History: Inpatient: none OP: none Past medication trials: effexor. Medical Evaluation Reviewed: Yes [facility] Medical History Alcohol abuse with withdrawal Alcoholic cirrhosis of liver Anxiety Depression Hypertension Surgical History H/O foot surgery Diagnostics Vital Signs (24Hr): Vital Signs - 24 hr 04/13/22 20:45 04/14/22 02:14 04/14/22 08:11 Temperature 97.9 F 97.3 F Pulse Rate 76 81 80 Respiratory Rate 18 20 15 Blood Pressure 126/62 137/66 138/70 Pulse Oximetry 97 95 96 Oxygen Delivery Method Room Air Room Air Room Air 04/14/22 16:25 04/14/22 19:20 04/14/22 20:23 Temperature 98.3 F Pulse Rate 87 83 86 Respiratory Rate 16 20 18 Blood Pressure 123/57 L 115/63 150/67 H Pulse Oximetry 98 95 98 Oxygen Delivery Method Room Air Room Air Room Air BMI result Body Mass Index 30.2 Labs 04/14/22 02:51 04/14/22 02:51 Labs: Laboratory Results - last 48 hr 04/13/22 04/13/22 04/13/22 21:24 21:24 21:24 WBC 3.1 L RBC 3.61 L Hgb 9.0 L Hct 30.1 L MCV 83.4 MCH 24.9 L MCHC 29.9 L RDW 18.3 H Plt Count 76 L D MPV 10.8 Immature Gran % (Auto) 0.0 Neut % (Auto) 52.6 Lymph % (Auto) 25.0 [place] % (Auto) 17.9 H Eos % (Auto) 3.2 Baso % (Auto) 1.3 Lymph # (Auto) 0.8 L [place] # (Auto) 0.6 Eos # (Auto) 0.1 Baso # (Auto) 0.0 Abs Immat Gran (auto) 0.00 Absolute Neuts (auto) 1.6 L Absolute Nucleated RBC 0.000 Nucleated RBC % (auto) 0.0 Smear Tech's Comments PT 14.6 H INR 1.3 H APTT 34.5 Sodium 139 Potassium 3.5 Chloride 104 Carbon Dioxide 27 Anion Gap 12 BUN 6 L Creatinine 0.56 Estim Creat Clear Calc 90.7 Estimated GFR > 60 Random Glucose 97 Calcium 8.2 L Magnesium 1.3 L* Total Bilirubin 1.6 H Direct Bilirubin 0.7 H AST 37 H ALT 15 Alkaline Phosphatase 85 Troponin I High Sens Total Protein 6.3 L Albumin 3.3 L Lipase 35 Urine Color Urine Appearance Urine pH Ur Specific [place] Urine Protein Urine Glucose (UA) Urine Ketones Urine Blood Urine Nitrite Ur Leukocyte Esterase Urine RBC Urine WBC Ur Squamous Epith Cells Urine Bacteria Hyaline Casts Urine Opiates Screen Urine Fentanyl Screen Ur Barbiturates Screen Ur Phencyclidine Scrn Ur Amphetamines Screen U Benzodiazepines Scrn Urine Cocaine Screen U Marijuana (THC) Screen Ethyl Alcohol < 10 Influenza Type A (PCR) Influenza Type B (PCR) RSV RNA Qual (PCR) SARS-CoV-2 RNA (RT-PCR) 04/13/22 04/13/22 04/14/22 21:24 21:24 02:51 WBC 2.5 L RBC 3.57 L Hgb 8.7 L Hct 29.2 L MCV 81.8 MCH 24.4 L MCHC 29.8 L RDW 18.4 H Plt Count 66 L MPV 10.6 Immature Gran % (Auto) 0.4 Neut % (Auto) 48.6 Lymph % (Auto) 23.9 [place] % (Auto) 20.2 H Eos % (Auto) 5.7 H Baso % (Auto) 1.2 Lymph # (Auto) 0.6 L [place] # (Auto) 0.5 Eos # (Auto) 0.1 Baso # (Auto) 0.0 Abs Immat Gran (auto) 0.01 Absolute Neuts (auto) 1.2 L Absolute Nucleated RBC 0.000 Nucleated RBC % (auto) 0.0 Smear Tech's Comments VERIFIED PT INR APTT Sodium Potassium Chloride Carbon Dioxide Anion Gap BUN Creatinine Estim Creat Clear Calc Estimated GFR Random Glucose Calcium Magnesium Total Bilirubin Direct Bilirubin AST ALT Alkaline Phosphatase Troponin I High Sens 7.0 Total Protein Albumin Lipase Urine Color Urine Appearance Urine pH Ur Specific [place] Urine Protein Urine Glucose (UA) Urine Ketones Urine Blood Urine Nitrite Ur Leukocyte Esterase Urine RBC Urine WBC Ur Squamous Epith Cells Urine Bacteria Hyaline Casts Urine Opiates Screen Urine Fentanyl Screen Ur Barbiturates Screen Ur Phencyclidine Scrn Ur Amphetamines Screen U Benzodiazepines Scrn Urine Cocaine Screen U Marijuana (THC) Screen Ethyl Alcohol Influenza Type A (PCR) NEGATIVE Influenza Type B (PCR) NEGATIVE RSV RNA Qual (PCR) NEGATIVE SARS-CoV-2 RNA (RT-PCR) NEGATIVE 04/14/22 04/14/22 04/14/22 02:51 04:31 04:31 WBC RBC Hgb Hct MCV MCH MCHC RDW Plt Count MPV Immature Gran % (Auto) Neut % (Auto) Lymph % (Auto) [place] % (Auto) Eos % (Auto) Baso % (Auto) Lymph # (Auto) [place] # (Auto) Eos # (Auto) Baso # (Auto) Abs Immat Gran (auto) Absolute Neuts (auto) Absolute Nucleated RBC Nucleated RBC % (auto) Smear Tech's Comments PT INR APTT Sodium 141 Potassium 3.2 L Chloride 108 Carbon Dioxide 23 Anion Gap 13 BUN 5 L Creatinine 0.59 Estim Creat Clear Calc 86.1 Estimated GFR > 60 Random Glucose 92 Calcium 7.8 L Magnesium Total Bilirubin Direct Bilirubin AST ALT Alkaline Phosphatase Troponin I High Sens Total Protein Albumin Lipase Urine Color Yellow Urine Appearance Clear Urine pH 7.0 Ur Specific [place] 1.010 Urine Protein Negative Urine Glucose (UA) Negative Urine Ketones Negative Urine Blood Negative Urine Nitrite Positive H Ur Leukocyte Esterase Small (1+) H Urine RBC 0-2 Urine WBC 0-5 Ur Squamous Epith Cells 0-2 Urine Bacteria 4+ Hyaline Casts 0-2 Urine Opiates Screen Not Detected Urine Fentanyl Screen Not Detected Ur Barbiturates Screen POSITIVE H Ur Phencyclidine Scrn Not Detected Ur Amphetamines Screen Not Detected U Benzodiazepines Scrn POSITIVE H Urine Cocaine Screen Not Detected U Marijuana (THC) Screen Not Detected Ethyl Alcohol Influenza Type A (PCR) Influenza Type B (PCR) RSV RNA Qual (PCR) SARS-CoV-2 RNA (RT-PCR) Imaging Radiology Impressions: ITS Impressions Abdomen Ultrasound 04/14/22 08:43 IMPRESSION: No acute finding. Findings consistent with reported history of hepatic cirrhosis. Multiple, 2.5 cm or less, relatively hypoechoic structures within the liver, at least 2 of which appear solid, not further characterized. Hepatocellular carcinoma cannot be confirmed or excluded. Correlation with AFP and MRI are recommended for further evaluation if clinically indicated. Findings consistent with previously identified splenorenal shunt, consistent with portal hypertension. No evidence of ascites. Spleen upper normal in size. Cholelithiasis. Suspect mild diffuse gallbladder wall thickening, nonspecific. Approximately 2 cm, fluid-containing structure with possible mural nodularity and internal septation and contiguous with the fundus of the gallbladder. Differential diagnosis includes, but is not limited to, phrygian cap containing debris, neoplasm, etc. This finding may be evaluated at the time of MRI. Mental Status Exam Mental Status Exam Narrative: Appearance: wearing hospital gown, fair hygiene, in NAD Behavior: cooperative Psychomotor: no agitation or retardation noted Speech: clear, normal rate/rhythm/volume, spontaneous TP: tangential TC: no s/s of psychosis, worried about housing situation but future oriented Mood: anxious Affect: congruent SI: none HI: none VH/AH: none Delusions: none Insight/judgment: poor x2 in terms of alcohol use and its effects on stability and mood Memory/cog: alert, oriented x 3. not formally tested. grossly intact to conversational testing. Medications Medications Current Medications Acetaminophen (Acetaminophen 325 Mg Tablet) 650 mg PO Q6H PRN PRN Reason: Pain, Mild (Pain Scale 1-3) Buspirone HCl (Buspirone Hcl 10 Mg Tablet) 10 mg PO BID [facility] Folic Acid (Folic Acid 1 Mg Tablet) 1 mg PO DAILY [facility] Last Admin: 04/14/22 07:46 Dose: 1 mg Folic Acid (Folic Acid 1 Mg Tablet) 1 mg PO DAILY [facility] Last Admin: 04/14/22 09:43 Dose: Not Given Gabapentin (Gabapentin 300 Mg Capsule) 300 mg PO TID [facility] Thiamine HCl 100 mg/ Sodium (Chloride) 101 mls @ 202 mls/hr IV DAILY [facility] Last Infusion: 04/14/22 12:23 Dose: Infused Sodium Chloride (Ns) 1,000 mls @ 75 mls/hr IVCONT .[id number] [facility] Last Admin: 04/14/22 13:08 Dose: 75 mls/hr Magnesium Oxide (Magnesium Oxide 400 Mg Tablet) 400 mg PO DAILY [facility] Last Admin: 04/14/22 09:42 Dose: 400 mg Melatonin (Melatonin 3 Mg Tablet) 6 mg PO BEDTIME PRN PRN Reason: Insomnia Ondansetron HCl (Ondansetron Hcl 4 Mg/2 Ml Vial) 4 mg IVPUSH Q8H PRN PRN Reason: Nausea and Vomiting Pantoprazole Sodium (Pantoprazole Sodium 40 Mg/10 Ml Vial) 40 mg IVPUSH BID@0630,1630 [facility] Last Admin: 04/14/22 16:27 Dose: 40 mg Pharmacy Consult (Consult Rx Etoh Phenob Im/Po) 1 each MISCELLANE ONCE PRN; Protocol PRN Reason: Consult order Pharmacy Consult (Consult Rx Perform Med Rec) 1 each MISCELLANE ONCE PRN PRN Reason: Consult order Phenobarbital (Phenobarbital 30 Mg Tablet) 30 mg PO BID [facility]; Protocol Stop: 04/15/22 21:01 Last Admin: 04/14/22 07:46 Dose: 30 mg Phenobarbital (Phenobarbital 15 Mg Tablet) 15 mg PO BID [facility]; Protocol Stop: 04/17/22 21:01 Phenobarbital (Phenobarbital 15 Mg Tablet) 15 mg PO DAILY [facility]; Protocol Stop: 04/19/22 09:01 Rifaximin (Rifaximin 550 Mg Tablet) 550 mg PO BID [facility] Sodium Chloride (0.9 % Sodium Chloride Flush 3 Ml Syringe) 3 ml IVFLUSH QSHIFT [facility] Last Admin: 04/14/22 16:10 Dose: Not Given Sucralfate (Sucralfate Oral Suspension 1 Gm/10 Ml Oral.Susp) 1 gm PO QIDACHS [facility] Last Admin: 04/14/22 16:27 Dose: 1 gm Venlafaxine HCl (Venlafaxine Hcl Er 37.5 Mg Cap.Er.24h) 37.5 mg PO DAILY [facility] Allergies Allergies Allergy/AdvReac Type Severity Reaction Status Date / Time Penicillins Allergy Mild Rash Verified 04/14/22 19:46 levofloxacin [From Levaquin] AdvReac Unknown Unknown Unverified 04/14/22 19:46 Sulfa (Sulfonamide AdvReac Unknown Unknown Unverified 04/14/22 19:46 Antibiotics) peanut AdvReac Anaphylaxis Verified 04/14/22 19:46 Peanut Butter AdvReac Anaphylaxis Verified 04/14/22 19:46 Assessment & Plan Assessment & Plan (1) MDD (major depressive disorder), recurrent episode, moderate: Status: Acute Code(s): F33.1 - Major depressive disorder, recurrent, moderate (2) Alcohol use disorder, severe, dependence: Status: Acute Code(s): F10.20 - Alcohol dependence, uncomplicated Plan Ms. Rodriges is a 57 year-old woman with hx of MDD, alcohol use disorder. Pt admitted for alcohol withdrawal on phenobarbital protocal and thiamine. Pt reports anxious mood, sadness related to ending relationship of more than 20 years. She currently does not have stable place to live and this is a source of distress. No SI/HI/VH/AH. Pt declines referrals for residential substance use treatment programs or other dual dx treatments in community. Pt reports her PCP has been prescribing medications for depression, including effexor which she states she would like to continue. She also reports gabapetin was helpful for mood and sleep. She also would like to restart naltrexon to decrease alcohol use. PLAN 1. Once BP more under control due to alcohol withdrawal can increase effexor to 75mg po daily. 2. Scheduled Gabapentin 300mg po TID for mood/sleep in context of alcohol use. 3. Re start naltrexon 50mg po daily. 4. Case management to discuss possibility of going to rest home. Total time managing care of this patient today __30__ minutes. Patient educated on: diagnosis Informed Consent: understands
--- NOTE | 2022-04-14 17:06 | PC.NURSE ---
incontinence care provided.
[2022-04-14 19:20] VITALS: BP 115/63; PULSE 83; RESP 20; O2SAT 95
--- NOTE | 2022-04-14 19:50 | PC.NURSE ---
Assumed care of pt. at 1900. Pt. resting quietly in bed at this time. Pt. alert and oriented to person and circumstance. Pt. aware of the year. Pt. thought she was at [facility]. Re-oriented to correct place and date. NS is currently running. Pt. has a bed up on [facility], room 357.
[2022-04-14 20:23] VITALS: BP 150/67; PULSE 86; RESP 18; TEMP 36.8; O2SAT 98
[2022-04-14] MEDS: busPIRone HCl 10 MG TABLET PO (21:30)
[2022-04-14] MEDS: Gabapentin 300 MG CAPSULE PO (21:30)
[2022-04-14] MEDS: rifAXIMin 550 MG TABLET PO (21:31)
[2022-04-15] VITALS (7 sets, daily range): BP systolic 130–156; BP diastolic 63–75; PULSE 73–94; RESP 17–20; TEMP 36.1–37; O2SAT 95–98
[2022-04-15] MEDS: Pantoprazole Sodium 40 MG/10 ML VIAL IVPUSH ×2 (05:56→16:01)
[2022-04-15] MEDS: 0.9 % Sodium Chloride 1,000 ML 75 ML IVCONT (05:57)
[2022-04-15 06:35] LABS: Hematocrit 30.3 % (37.0-47.0); Hemoglobin 9.3 g/dl (12.0-16.0); Mean Corpuscular HGB Conc 30.7 g/dl (31.0-35.0); Mean Corpuscular Volume 81.5 fL (80.0-98.0); Mean Platelet Volume 10.4 fL (9.4-12.3); Red Blood Count 3.72 X10*6/uL (4.20-5.50)
[2022-04-15 06:37] LABS: Platelet Count 61 X10*3/uL (160-400); White Blood Count 2.5 X10*3/uL (4.8-10.8)
[2022-04-15 06:43] LABS: INTERNATIONAL NORM RATIO 1.3 (0.9-1.1); Prothrombin Time 15.1 SEC (10.0-13.1)
[2022-04-15 06:54] LABS: Alanine Aminotransferase 12 U/L (0-31); Albumin Level 3.2 g/dL (3.5-5.0); Alkaline Phosphatase 82 U/L (39-117); Anion Gap 13 (12-20); Aspartate Amino Transferase 28 U/L (5-31); Bilirubin Direct 0.5 mg/dL (0.0-0.5); Bilirubin Total 1.3 mg/dL (0.0-1.0); Blood Urea Nitrogen 5 mg/dL (9-16); Calcium 8.4 mg/dL (8.4-10.2); Carbon Dioxide 25 mmol/L (22-29); Chloride 110 mmol/L (96-108); Creatinine Clr Calc Pharmacy 81.9; Estimated Glomerular Filt Rate > 60; Glucose Fasting 108 mg/dL (60-99); Magnesium 1.5 mg/dL (1.6-2.6); Potassium 3.3 mmol/L (3.3-5.1); Sodium 145 mmol/L (135-145)
[2022-04-15] MEDS: Sucralfate Oral Suspension 1 GM/10 ML ORAL.SUSP PO ×3 (08:16→20:29)
[2022-04-15] MEDS: PHENobarbitaL 30 MG TABLET PO ×2 (08:16→20:21)
[2022-04-15] MEDS: rifAXIMin 550 MG TABLET PO ×2 (08:16→20:21)
[2022-04-15] MEDS: Gabapentin 300 MG CAPSULE PO ×3 (08:17→20:21)
[2022-04-15] MEDS: Venlafaxine HCl ER 37.5 MG CAP.ER.24H PO (08:18)
[2022-04-15] MEDS: Folic Acid 1 MG TABLET PO (08:18)
[2022-04-15] MEDS: Naltrexone HCl 50 MG TABLET PO (08:18)
[2022-04-15] MEDS: busPIRone HCl 10 MG TABLET PO ×2 (08:18→20:21)
--- NOTE | 2022-04-15 08:22 | P.PNIM_ITS ---
Subjective Subjective Date of Service: 04/15/22 Interval History: withdrawal improving no further hemateemsis Physical Exam Vital Signs: Vital Signs: Last Vital Signs Temp 98.6 F 04/15/22 07:52 Pulse 76 04/15/22 07:52 Resp 18 04/15/22 07:52 BP 147/64 H 04/15/22 07:52 Pulse Ox 97 04/15/22 07:52 O2 Del Method 04/15/22 07:52 BMI result Body Mass Index 30.2 General: AO X 3, no acute distress Resp: CTA bilateral, no accessory muscles used CVS: S1,S2,RRR GI: soft, non tender, non distended Neuro: motor grossly intact, alert Psych: appropriate affect, appropriate insight Objective Data Active Medications Acetaminophen (Acetaminophen 325 Mg Tablet) 650 mg PO Q6H PRN PRN Reason: Pain, Mild (Pain Scale 1-3) Buspirone HCl (Buspirone Hcl 10 Mg Tablet) 10 mg PO BID [facility] Last Admin: 04/14/22 21:30 Dose: 10 mg Documented By: EDUARDO Folic Acid (Folic Acid 1 Mg Tablet) 1 mg PO DAILY [facility] Last Admin: 04/14/22 07:46 Dose: 1 mg Documented By: KAREN Folic Acid (Folic Acid 1 Mg Tablet) 1 mg PO DAILY [facility] Last Admin: 04/14/22 09:43 Dose: Not Given Documented By: KAREN Non-Admin Reason: See Note Gabapentin (Gabapentin 300 Mg Capsule) 300 mg PO TID [facility] Last Admin: 04/14/22 21:30 Dose: 300 mg Documented By: EDUARDO Thiamine HCl 100 mg/ Sodium (Chloride) 101 mls @ 202 mls/hr IV DAILY [facility] Last Infusion: 04/14/22 12:23 Dose: 0 mls/hr Documented By: MARA Sodium Chloride (Ns) 1,000 mls @ 75 mls/hr IVCONT .[id number] [facility] Last Admin: 04/15/22 05:57 Dose: 75 mls/hr Documented By: AYALA Magnesium Sulfate (Magnesium Sulfate/H2o) 2 gm in 50 mls @ 25 mls/hr IV ONCE ONE Stop: 04/15/22 08:59 Magnesium Oxide (Magnesium Oxide 400 Mg Tablet) 400 mg PO DAILY [facility] Last Admin: 04/14/22 09:42 Dose: 400 mg Documented By: KAREN Melatonin (Melatonin 3 Mg Tablet) 6 mg PO BEDTIME PRN PRN Reason: Insomnia Naltrexone HCl (Naltrexone Hcl 50 Mg Tablet) 50 mg PO DAILY [facility] Ondansetron HCl (Ondansetron Hcl 4 Mg/2 Ml Vial) 4 mg IVPUSH Q8H PRN PRN Reason: Nausea and Vomiting Pantoprazole Sodium (Pantoprazole Sodium 40 Mg/10 Ml Vial) 40 mg IVPUSH BID@0630,1630 [facility] Last Admin: 04/15/22 05:56 Dose: 40 mg Documented By: AYALA Pharmacy Consult (Consult Rx Etoh Phenob Im/Po) 1 each MISCELLANE ONCE PRN; Protocol PRN Reason: Consult order Pharmacy Consult (Consult Rx Perform Med Rec) 1 each MISCELLANE ONCE PRN PRN Reason: Consult order Phenobarbital (Phenobarbital 30 Mg Tablet) 30 mg PO BID [facility]; Protocol Stop: 04/15/22 21:01 Last Admin: 04/14/22 21:30 Dose: 30 mg Documented By: EDUARDO Phenobarbital (Phenobarbital 15 Mg Tablet) 15 mg PO BID [facility]; Protocol Stop: 04/17/22 21:01 Phenobarbital (Phenobarbital 15 Mg Tablet) 15 mg PO DAILY [facility]; Protocol Stop: 04/19/22 09:01 Rifaximin (Rifaximin 550 Mg Tablet) 550 mg PO BID [facility] Last Admin: 04/14/22 21:31 Dose: 550 mg Documented By: EDUARDO Sodium Chloride (0.9 % Sodium Chloride Flush 3 Ml Syringe) 3 ml IVFLUSH QSHIFT [facility] Last Admin: 04/14/22 23:35 Dose: Not Given Documented By: AYALA Non-Admin Reason: IV Running Sucralfate (Sucralfate Oral Suspension 1 Gm/10 Ml Oral.Susp) 1 gm PO QIDACHS [facility] Last Admin: 04/14/22 21:31 Dose: 1 gm Documented By: EDUARDO Venlafaxine HCl (Venlafaxine Hcl Er 37.5 Mg Cap.Er.24h) 37.5 mg PO DAILY [facility] Labs 04/15/22 05:35 04/15/22 05:35 Labs: Laboratory Results - last 24 hr 04/15/22 04/15/22 04/15/22 05:35 05:35 05:35 MCV 81.5 MCH 25.0 L MCHC 30.7 L RDW 18.0 H Plt Count 61 L MPV 10.4 Absolute Nucleated RBC 0.000 Nucleated RBC % (auto) 0.0 PT 15.1 H INR 1.3 H Anion Gap 13 Estim Creat Clear Calc 81.9 Estimated GFR > 60 Fasting Glucose 108 H Calcium 8.4 D Magnesium 1.5 L Total Bilirubin 1.3 H Direct Bilirubin 0.5 AST 28 ALT 12 Alkaline Phosphatase 82 Total Protein 6.0 L Albumin 3.2 L Assessment and Plan (1) Hematemesis: Status: Acute Plan 57-year-old with pertinent history of alcohol use disorder with alcoholic c irrhosis, mood disorder, essential hypertension who presented to the emergency department with nausea/vomiting and diarrhea, hematemesis. alcohol dependence with withdrawal continue pheonobarb, ciwa alcohol cirrhosis complicated by pancytopenia hold aldactone with ?bleed rifaximin Hematemesis Does have history of esophageal varices.? iv ppi, plan for EGD today ?hepatic and gallbladder structures on US check MRI Mood disorder buspar, effexor htn holding while ?bleed Hypomagnesemia replace and monitor DVT prophylaxis:? Mechanical due to gi bleed Full code reason for continued hospitalization:gi bleed Time Spent With Patient Time: Total time managing care of this patient today ____ minutes. Quality Stroke Does the patient have a stroke diagnosis?: No VTE Prior VTE?: No VTE Risk Level:: Medical - moderate - high VTE Device Contraindication: N/A - Device Ordered VTE Drug Contraindication: Treatment Not Indicated
[2022-04-15] MEDS: Thiamine HCL 100 MG in 0.9 % Sodium Chloride 100 ML 202 MG IV (08:27)
[2022-04-15] MEDS: Magnesium Oxide 400 MG TABLET PO (08:36)
[2022-04-15] MEDS: Magnesium Sulfate/H2O 2 GM/50 ML PIGGYBACK IV (09:50)
[2022-04-15] MEDS: 0.9 % Sodium Chloride Flush 3 ML SYRINGE IVFLUSH (09:55)
--- NOTE | 2022-04-15 12:35 | HO.ANESPROP2 ---
HPI - Anesthesia Eval Consult details Narrative: 57 F cirrhotic here w/ hemetemesis PMFSH Active Problems Active Problems: All Active Problems (Updated 04/14/22 @ 20:37 by Josefnia Shin) MDD (major depressive disorder), recurrent episode, moderate (Acute) Alcohol use disorder, severe, dependence (Acute) Cirrhosis of liver (Acute) Hematemesis (Acute) Acute alcoholic gastritis (Acute) Acute GI bleeding (Acute) Alcohol withdrawal (Acute) Hypomagnesemia (Acute) QT prolongation (Acute) Past Medical History Medical History Alcohol abuse with withdrawal Alcoholic cirrhosis of liver Anxiety Depression Hypertension Functional capacity: independent ambulation Family History Family History Mother Pancreatic cancer Family history of problems with anesthesia: No Surgical History Surgical History H/O foot surgery History of Problems with Anesthesia: No Social History Social History Household Members: Other Household Members Other:: boyfriend Housing: Apartment Do you presently have visiting nurse or other home services: No Alcohol intake: current Alcohol intake frequency: 3 or more drinks per day Alcohol type: hard liquor Patient Tobacco Use Status: Former Tobacco user Substance Use Type: Marijuana Advance Directives Date on File: 03/11/21 service: No Current occupational status: unemployed Meds Allergies Allergy/AdvReac Type Severity Reaction Status Date / Time Penicillins Allergy Mild Rash Verified 04/14/22 19:46 levofloxacin [From Levaquin] AdvReac Severe Difficulty Verified 04/15/22 11:40 Breathing peanut AdvReac Severe Anaphylaxis Verified 04/15/22 11:40 Peanut Butter AdvReac Severe Anaphylaxis Verified 04/15/22 11:40 Sulfa (Sulfonamide AdvReac Severe Difficulty Verified 04/15/22 11:40 Antibiotics) Breathing Active Medications: Current Medications Acetaminophen (Acetaminophen 325 Mg Tablet) 650 mg PO Q6H PRN PRN Reason: Pain, Mild (Pain Scale 1-3) Buspirone HCl (Buspirone Hcl 10 Mg Tablet) 10 mg PO BID [facility] Last Admin: 04/15/22 08:18 Dose: 10 mg Folic Acid (Folic Acid 1 Mg Tablet) 1 mg PO DAILY [facility] Last Admin: 04/15/22 08:18 Dose: 1 mg Folic Acid (Folic Acid 1 Mg Tablet) 1 mg PO DAILY [facility] Last Admin: 04/15/22 09:56 Dose: Not Given Gabapentin (Gabapentin 300 Mg Capsule) 300 mg PO TID [facility] Last Admin: 04/15/22 08:17 Dose: 300 mg Thiamine HCl 100 mg/ Sodium (Chloride) 101 mls @ 202 mls/hr IV DAILY [facility] Last Infusion: 04/15/22 09:56 Dose: Infused Sodium Chloride (Ns) 1,000 mls @ 75 mls/hr IVCONT .[id number] [facility] Last Admin: 04/15/22 05:57 Dose: 75 mls/hr Magnesium Oxide (Magnesium Oxide 400 Mg Tablet) 400 mg PO DAILY [facility] Last Admin: 04/15/22 08:36 Dose: 400 mg Melatonin (Melatonin 3 Mg Tablet) 6 mg PO BEDTIME PRN PRN Reason: Insomnia Naltrexone HCl (Naltrexone Hcl 50 Mg Tablet) 50 mg PO DAILY [facility] Last Admin: 04/15/22 08:18 Dose: 50 mg Ondansetron HCl (Ondansetron Hcl 4 Mg/2 Ml Vial) 4 mg IVPUSH Q8H PRN PRN Reason: Nausea and Vomiting Pantoprazole Sodium (Pantoprazole Sodium 40 Mg/10 Ml Vial) 40 mg IVPUSH BID@0630,1630 [facility] Last Admin: 04/15/22 05:56 Dose: 40 mg Pharmacy Consult (Consult Rx Etoh Phenob Im/Po) 1 each MISCELLANE ONCE PRN; Protocol PRN Reason: Consult order Pharmacy Consult (Consult Rx Perform Med Rec) 1 each MISCELLANE ONCE PRN PRN Reason: Consult order Phenobarbital (Phenobarbital 30 Mg Tablet) 30 mg PO BID [facility]; Protocol Stop: 04/15/22 21:01 Last Admin: 04/15/22 08:16 Dose: 30 mg Phenobarbital (Phenobarbital 15 Mg Tablet) 15 mg PO BID [facility]; Protocol Stop: 04/17/22 21:01 Phenobarbital (Phenobarbital 15 Mg Tablet) 15 mg PO DAILY [facility]; Protocol Stop: 04/19/22 09:01 Rifaximin (Rifaximin 550 Mg Tablet) 550 mg PO BID [facility] Last Admin: 04/15/22 08:16 Dose: 550 mg Sodium Chloride (0.9 % Sodium Chloride Flush 3 Ml Syringe) 3 ml IVFLUSH QSHIFT [facility] Last Admin: 04/15/22 09:55 Dose: 3 ml Sucralfate (Sucralfate Oral Suspension 1 Gm/10 Ml Oral.Susp) 1 gm PO QIDACHS [facility] Last Admin: 04/15/22 08:16 Dose: 1 gm Venlafaxine HCl (Venlafaxine Hcl Er 37.5 Mg Cap.Er.24h) 37.5 mg PO DAILY [facility] Last Admin: 04/15/22 08:18 Dose: 37.5 mg Home Medications Medication Instructions Recorded Confirmed Last Taken Type folic acid 1 mg tablet 1 tab PO DAILY 03/02/21 04/14/22 11/22/21 History nadolol 20 mg tablet 1 tab PO DAILY 03/02/21 04/14/22 11/22/21 History melatonin 3 mg tablet 1 tab PO BEDTIME 10/18/21 04/14/22 11/22/21 History magnesium oxide 400 mg (241.3 mg 400 mg PO DAILY 11/25/21 04/14/22 11/22/21 History magnesium) tablet spironolactone 50 mg tablet 1 tab PO DAILY 11/25/21 04/14/22 11/22/21 History albuterol sulfate 90 mcg/actuation 90 mcg inhalation Q4H 04/14/22 04/14/22 Unknown History aerosol inhaler buspirone 10 mg tablet 1 tab PO BID 04/14/22 04/14/22 Unknown History clonidine HCl 0.1 mg tablet 1 tab PO BID 04/14/22 04/14/22 Unknown History hydroxyzine HCl 25 mg tablet 50 mg PO BID 04/14/22 04/14/22 Unknown History naltrexone 50 mg tablet 1 tab PO DAILY 04/14/22 04/14/22 Unknown History rifaximin 550 mg tablet (Xifaxan) 1 tab PO BID 04/14/22 04/14/22 Unknown History venlafaxine 37.5 mg 1 cap PO DAILY 04/14/22 04/14/22 Unknown History capsule,extended release 24 hr Exam Exam Date and Time: April 15, 2022 123 Height,Weight and Vital Signs: Height 4 ft 11 in Weight 150 lb Last Vital Signs Temp 97.6 F 04/15/22 11:24 Pulse 73 04/15/22 11:24 Resp 18 04/15/22 11:24 BP 156/75 H 04/15/22 11:24 Pulse Ox 98 04/15/22 11:24 O2 Del Method 04/15/22 11:24 Pertinent Lab Results Pertinent Lab Results: Laboratory Tests 04/13/22 04/13/22 04/13/22 21:24 21:24 21:24 WBC 3.1 L RBC 3.61 L Hgb 9.0 L Hct 30.1 L MCV 83.4 MCH 24.9 L MCHC 29.9 L RDW 18.3 H Plt Count 76 L D MPV 10.8 Immature Gran % (Auto) 0.0 Neut % (Auto) 52.6 Lymph % (Auto) 25.0 [place] % (Auto) 17.9 H Eos % (Auto) 3.2 Baso % (Auto) 1.3 Lymph # (Auto) 0.8 L [place] # (Auto) 0.6 Eos # (Auto) 0.1 Baso # (Auto) 0.0 Abs Immat Gran (auto) 0.00 Absolute Neuts (auto) 1.6 L Absolute Nucleated RBC 0.000 Nucleated RBC % (auto) 0.0 Smear Tech's Comments Smear Path Review PT 14.6 H INR 1.3 H APTT 34.5 Sodium 139 Potassium 3.5 Chloride 104 Carbon Dioxide 27 Anion Gap 12 BUN 6 L Creatinine 0.56 Estim Creat Clear Calc 90.7 Estimated GFR > 60 Random Glucose 97 Fasting Glucose Calcium 8.2 L Magnesium 1.3 L* Total Bilirubin 1.6 H Direct Bilirubin 0.7 H AST 37 H ALT 15 Alkaline Phosphatase 85 Troponin I High Sens Total Protein 6.3 L Albumin 3.3 L Lipase 35 Urine Color Urine Appearance Urine pH Ur Specific [place] Urine Protein Urine Glucose (UA) Urine Ketones Urine Blood Urine Nitrite Ur Leukocyte Esterase Urine RBC Urine WBC Ur Squamous Epith Cells Urine Bacteria Hyaline Casts Urine Opiates Screen Urine Fentanyl Screen Ur Barbiturates Screen Ur Phencyclidine Scrn Ur Amphetamines Screen U Benzodiazepines Scrn Urine Cocaine Screen U Marijuana (THC) Screen Ethyl Alcohol < 10 Influenza Type A (PCR) Influenza Type B (PCR) RSV RNA Qual (PCR) SARS-CoV-2 RNA (RT-PCR) 04/13/22 04/13/22 04/14/22 21:24 21:24 02:51 WBC 2.5 L RBC 3.57 L Hgb 8.7 L Hct 29.2 L MCV 81.8 MCH 24.4 L MCHC 29.8 L RDW 18.4 H Plt Count 66 L MPV 10.6 Immature Gran % (Auto) 0.4 Neut % (Auto) 48.6 Lymph % (Auto) 23.9 [place] % (Auto) 20.2 H Eos % (Auto) 5.7 H Baso % (Auto) 1.2 Lymph # (Auto) 0.6 L [place] # (Auto) 0.5 Eos # (Auto) 0.1 Baso # (Auto) 0.0 Abs Immat Gran (auto) 0.01 Absolute Neuts (auto) 1.2 L Absolute Nucleated RBC 0.000 Nucleated RBC % (auto) 0.0 Smear Tech's Comments VERIFIED Smear Path Review PT INR APTT Sodium Potassium Chloride Carbon Dioxide Anion Gap BUN Creatinine Estim Creat Clear Calc Estimated GFR Random Glucose Fasting Glucose Calcium Magnesium Total Bilirubin Direct Bilirubin AST ALT Alkaline Phosphatase Troponin I High Sens 7.0 Total Protein Albumin Lipase Urine Color Urine Appearance Urine pH Ur Specific [place] Urine Protein Urine Glucose (UA) Urine Ketones Urine Blood Urine Nitrite Ur Leukocyte Esterase Urine RBC Urine WBC Ur Squamous Epith Cells Urine Bacteria Hyaline Casts Urine Opiates Screen Urine Fentanyl Screen Ur Barbiturates Screen Ur Phencyclidine Scrn Ur Amphetamines Screen U Benzodiazepines Scrn Urine Cocaine Screen U Marijuana (THC) Screen Ethyl Alcohol Influenza Type A (PCR) NEGATIVE Influenza Type B (PCR) NEGATIVE RSV RNA Qual (PCR) NEGATIVE SARS-CoV-2 RNA (RT-PCR) NEGATIVE 04/14/22 04/14/22 04/14/22 02:51 04:31 04:31 WBC RBC Hgb Hct MCV MCH MCHC RDW Plt Count MPV Immature Gran % (Auto) Neut % (Auto) Lymph % (Auto) [place] % (Auto) Eos % (Auto) Baso % (Auto) Lymph # (Auto) [place] # (Auto) Eos # (Auto) Baso # (Auto) Abs Immat Gran (auto) Absolute Neuts (auto) Absolute Nucleated RBC Nucleated RBC % (auto) Smear Tech's Comments Smear Path Review PT INR APTT Sodium 141 Potassium 3.2 L Chloride 108 Carbon Dioxide 23 Anion Gap 13 BUN 5 L Creatinine 0.59 Estim Creat Clear Calc 86.1 Estimated GFR > 60 Random Glucose 92 Fasting Glucose Calcium 7.8 L Magnesium Total Bilirubin Direct Bilirubin AST ALT Alkaline Phosphatase Troponin I High Sens Total Protein Albumin Lipase Urine Color Yellow Urine Appearance Clear Urine pH 7.0 Ur Specific [place] 1.010 Urine Protein Negative Urine Glucose (UA) Negative Urine Ketones Negative Urine Blood Negative Urine Nitrite Positive H Ur Leukocyte Esterase Small (1+) H Urine RBC 0-2 Urine WBC 0-5 Ur Squamous Epith Cells 0-2 Urine Bacteria 4+ Hyaline Casts 0-2 Urine Opiates Screen Not Detected Urine Fentanyl Screen Not Detected Ur Barbiturates Screen POSITIVE H Ur Phencyclidine Scrn Not Detected Ur Amphetamines Screen Not Detected U Benzodiazepines Scrn POSITIVE H Urine Cocaine Screen Not Detected U Marijuana (THC) Screen Not Detected Ethyl Alcohol Influenza Type A (PCR) Influenza Type B (PCR) RSV RNA Qual (PCR) SARS-CoV-2 RNA (RT-PCR) 04/15/22 04/15/22 04/15/22 05:35 05:35 05:35 WBC 2.5 L RBC 3.72 L Hgb 9.3 L Hct 30.3 L MCV 81.5 MCH 25.0 L MCHC 30.7 L RDW 18.0 H Plt Count 61 L MPV 10.4 Immature Gran % (Auto) Neut % (Auto) Lymph % (Auto) [place] % (Auto) Eos % (Auto) Baso % (Auto) Lymph # (Auto) [place] # (Auto) Eos # (Auto) Baso # (Auto) Abs Immat Gran (auto) Absolute Neuts (auto) Absolute Nucleated RBC 0.000 Nucleated RBC % (auto) 0.0 Smear Tech's Comments Smear Path Review SEE NOTE PT 15.1 H INR 1.3 H APTT Sodium 145 Potassium 3.3 Chloride 110 H Carbon Dioxide 25 Anion Gap 13 BUN 5 L Creatinine 0.62 Estim Creat Clear Calc 81.9 Estimated GFR > 60 Random Glucose Fasting Glucose 108 H Calcium 8.4 D Magnesium 1.5 L Total Bilirubin 1.3 H Direct Bilirubin 0.5 AST 28 ALT 12 Alkaline Phosphatase 82 Troponin I High Sens Total Protein 6.0 L Albumin 3.2 L Lipase Urine Color Urine Appearance Urine pH Ur Specific [place] Urine Protein Urine Glucose (UA) Urine Ketones Urine Blood Urine Nitrite Ur Leukocyte Esterase Urine RBC Urine WBC Ur Squamous Epith Cells Urine Bacteria Hyaline Casts Urine Opiates Screen Urine Fentanyl Screen Ur Barbiturates Screen Ur Phencyclidine Scrn Ur Amphetamines Screen U Benzodiazepines Scrn Urine Cocaine Screen U Marijuana (THC) Screen Ethyl Alcohol Influenza Type A (PCR) Influenza Type B (PCR) RSV RNA Qual (PCR) SARS-CoV-2 RNA (RT-PCR) Airway Mallampati Class: III TM Dist: >3cm Neck ROM: Full Loose/Missing/Broken Teeth: Yes Assessment and Plan Assessment Anesthesia Assessment: Anesthesia Plan Discussed and Chart Reviewed Final Anesthetic Review Family History of Problems with Anesthesia: No History of Problems with Anesthesia: No NPO: Yes ASA Class: III Final Preanesthetic Review: No Changes in Pt Med Stat, Meds/Allgs Chart Reviewed, Consent Obtained/Reviewed and Anes Risks/Benef Reviewed Patient Risk: Intermediate Procedure Risk: Low Anesthetic Plan Anesthetic Plan: MAC: Disposition: Standard PACU
--- NOTE | 2022-04-15 12:36 | MHC.SHP ---
Pre-Procedural Eval Section A Date of Service: 04/15/22 The patient is an INPATIENT: Yes The History & Physical has been completed within 30 days and I have reviewed it.: Yes Section B Chief Complaint: alcohol withdrawal Allergies: Allergies Allergy/AdvReac Type Severity Reaction Status Date / Time Penicillins Allergy Mild Rash Verified 04/14/22 19:46 levofloxacin [From Levaquin] AdvReac Severe Difficulty Verified 04/15/22 11:40 Breathing peanut AdvReac Severe Anaphylaxis Verified 04/15/22 11:40 Peanut Butter AdvReac Severe Anaphylaxis Verified 04/15/22 11:40 Sulfa (Sulfonamide AdvReac Severe Difficulty Verified 04/15/22 11:40 Antibiotics) Breathing Plan Diagnosis/Plan: Unchanged I have reviewed the history and physical and performed a pertinent physical examination on my patient. No changes have occurred unless specified. Time Spent With Patient Time: Total time managing care of this patient today ____ minutes.
--- NOTE | 2022-04-15 12:37 | W.PM.OPN ---
Operative Note Operative Note Date of Service: 04/15/22 Narrative: Procedure Description: EGD Indication: [] Anesthesia: MAC FLEXIBLE TRANSORAL UPPER GASTROINTESTINAL ENDOSCOPY UPPER ENDOSCOPY Consent: Indications for the procedure and potential complications of bleeding, perforation, reaction to medications and missed diagnosis were discussed with the patient and informed consent was obtained. Instrument: Olympus GIF H 190 J mid size upper endoscope Monitoring: Vital signs and clinical assessment, continuous EKG monitoring, Pulse oximetry, Carbon Dioxide monitoring and blood pressure monitoring were done throughout the procedure. Procedure: The patient was placed in the left lateral decubitis position and pre-procedure medications were administered and a bite block was placed. The endoscope was inserted into the mouth and advanced under direct vision to the third part of duodenum. A careful inspection was made as the upper endoscope was withdrawn including a retroflexed examination of the proximal stomach; Findings and interventions are described below. Findings: Larynx:normal Esophagus: GE junction at 36 cm, diaphragm hiatus at 36 cm, no varices or esophagitis. Stomach: Patchy gastric erythema in the antrum with congestion and edema. Grade 2 flap valve on retroflexed examination of the cardia. no ulcers or erosions seen. Duodenum: Normal bulb and descending duodenum, Intervention:none Impression/Findings: gastritis, probably alcohol related PLAN: advance diet as tolerated low dose PPI alcohol abstinence
[2022-04-16 04:00] VITALS: BP 153/70; PULSE 75; RESP 16; TEMP 36; O2SAT 94
[2022-04-16] MEDS: Pantoprazole Sodium 40 MG/10 ML VIAL IVPUSH (05:41)
[2022-04-16 07:05] LABS: Hematocrit 29.5 % (37.0-47.0); Hemoglobin 8.8 g/dl (12.0-16.0); Mean Corpuscular HGB Conc 29.8 g/dl (31.0-35.0); Mean Corpuscular Hemoglobin 24.3 pg (27.0-33.0); Mean Corpuscular Volume 81.5 fL (80.0-98.0); Red Blood Count 3.62 X10*6/uL (4.20-5.50)
[2022-04-16 07:06] LABS: Platelet Count 62 X10*3/uL (160-400)
[2022-04-16 07:13] LABS: Anion Gap 16 (12-20); Blood Urea Nitrogen 5 mg/dL (9-16); Calcium 8.2 mg/dL (8.4-10.2); Carbon Dioxide 23 mmol/L (22-29); Chloride 106 mmol/L (96-108); Creatinine Clr Calc Pharmacy 84.7; Estimated Glomerular Filt Rate > 60; Glucose Fasting 105 mg/dL (60-99); Magnesium 1.5 mg/dL (1.6-2.6); Potassium 3.3 mmol/L (3.3-5.1); Sodium 142 mmol/L (135-145)
[2022-04-16 07:35] VITALS: BP 157/70; PULSE 76; RESP 18; TEMP 36.7; O2SAT 95
[2022-04-16] MEDS: Thiamine HCL 100 MG in 0.9 % Sodium Chloride 100 ML 202 MG IV (07:56)
[2022-04-16] MEDS: PHENobarbitaL 15 MG TABLET PO ×2 (07:58→21:01)
[2022-04-16] MEDS: busPIRone HCl 10 MG TABLET PO ×2 (07:58→21:01)
[2022-04-16] MEDS: rifAXIMin 550 MG TABLET PO ×2 (07:58→21:01)
[2022-04-16] MEDS: Sucralfate Oral Suspension 1 GM/10 ML ORAL.SUSP PO ×4 (07:58→21:01)
[2022-04-16] MEDS: Gabapentin 300 MG CAPSULE PO ×3 (07:59→21:01)
[2022-04-16] MEDS: Venlafaxine HCl ER 37.5 MG CAP.ER.24H PO (07:59)
[2022-04-16] MEDS: Naltrexone HCl 50 MG TABLET PO (07:59)
[2022-04-16] MEDS: Folic Acid 1 MG TABLET PO (07:59)
[2022-04-16] MEDS: 0.9 % Sodium Chloride Flush 3 ML SYRINGE IVFLUSH ×3 (08:00→21:02)
[2022-04-16] MEDS: Magnesium Oxide 400 MG TABLET PO (08:00)
[2022-04-16] MEDS: Magnesium Sulfate/H2O 2 GM/50 ML PIGGYBACK IV (09:27)
[2022-04-16 11:24] VITALS: BP 157/70; PULSE 76; O2SAT 95
--- NOTE | 2022-04-16 11:25 | MHC.CM.PN ---
EMR REVIEWED, PER HOSPITALIST ANTIC PT WILL BE CLEARED FOR D/C TOMORROW, PER PHYSICAL THERAPY PT IS AT BASELINE AND WILL NOT BE RECOMMENDED SERVICES OR STR, CM WILL DELIVER LIST OF SHELTERS TO PT PRIOR TO D/C.
--- NOTE | 2022-04-16 13:35 | HO.PM.IMPN ---
Subjective Subjective Date of Service: 04/16/22 Interval History: the patient was seen and evaluated this morning Laying in bed, feels five better overall but still shaking and unsteady on her feet Denies any fever, chills or shortness of breath No reported other overnight events. Review of Systems No fever, chills but reports generalized weakness and tremors No chest pain, palpitation No shortness of breath or coughing No abdominal pain, nausea or vomiting No urinary symptoms No reported rash Physical Exam Vital Signs: Vital Signs: Last Vital Signs Temp 98.1 F 04/16/22 07:35 Pulse 76 04/16/22 11:24 Resp 18 04/16/22 07:35 BP 157/70 H 04/16/22 11:24 Pulse Ox 95 04/16/22 11:24 O2 Del Method 04/16/22 07:35 BMI result Body Mass Index 30.2 Const: Other: Constitutional : Awake, interactive, not in distress Neck : Normal inspection, Supple Cardiovascular : RRR, no JVP, no lower extremity edema Respiratory : good bilateral air entry, no crackles, wheezes or rhonchi Gastrointestinal: soft, lax, Normal bowel sounds, Non tender Skin : Warm, Dry Neurological : Alert & oriented x3, No focal deficit , upper extremities tremors, unsteady gait Objective Data Active Medications Acetaminophen (Acetaminophen 325 Mg Tablet) 650 mg PO Q6H PRN PRN Reason: Pain, Mild (Pain Scale 1-3) Buspirone HCl (Buspirone Hcl 10 Mg Tablet) 10 mg PO BID [facility] Last Admin: 04/16/22 07:58 Dose: 10 mg Documented By: MOISE Folic Acid (Folic Acid 1 Mg Tablet) 1 mg PO DAILY [facility] Last Admin: 04/16/22 07:59 Dose: 1 mg Documented By: MOISE Folic Acid (Folic Acid 1 Mg Tablet) 1 mg PO DAILY [facility] Last Admin: 04/16/22 07:59 Dose: Not Given Documented By: MOISE Non-Admin Reason: duplicate Gabapentin (Gabapentin 300 Mg Capsule) 300 mg PO TID [facility] Last Admin: 04/16/22 07:59 Dose: 300 mg Documented By: MOISE Thiamine HCl 100 mg/ Sodium (Chloride) 101 mls @ 202 mls/hr IV DAILY [facility] Last Infusion: 04/16/22 09:08 Dose: 0 mls/hr Documented By: MOISE Magnesium Oxide (Magnesium Oxide 400 Mg Tablet) 400 mg PO DAILY [facility] Last Admin: 04/16/22 08:00 Dose: 400 mg Documented By: MOISE Melatonin (Melatonin 3 Mg Tablet) 6 mg PO BEDTIME PRN PRN Reason: Insomnia Naltrexone HCl (Naltrexone Hcl 50 Mg Tablet) 50 mg PO DAILY [facility] Last Admin: 04/16/22 07:59 Dose: 50 mg Documented By: MOISE Ondansetron HCl (Ondansetron Hcl 4 Mg/2 Ml Vial) 4 mg IVPUSH Q8H PRN PRN Reason: Nausea and Vomiting Pantoprazole Sodium (Pantoprazole Sodium 40 Mg/10 Ml Vial) 40 mg IVPUSH BID@0630,1630 [facility] Last Admin: 04/16/22 05:41 Dose: 40 mg Documented By: BLAINE Pharmacy Consult (Consult Rx Etoh Phenob Im/Po) 1 each MISCELLANE ONCE PRN; Protocol PRN Reason: Consult order Pharmacy Consult (Consult Rx Perform Med Rec) 1 each MISCELLANE ONCE PRN PRN Reason: Consult order Phenobarbital (Phenobarbital 15 Mg Tablet) 15 mg PO BID [facility]; Protocol Stop: 04/17/22 21:01 Last Admin: 04/16/22 07:58 Dose: 15 mg Documented By: MOISE Phenobarbital (Phenobarbital 15 Mg Tablet) 15 mg PO DAILY [facility]; Protocol Stop: 04/19/22 09:01 Rifaximin (Rifaximin 550 Mg Tablet) 550 mg PO BID [facility] Last Admin: 04/16/22 07:58 Dose: 550 mg Documented By: MOISE Sodium Chloride (0.9 % Sodium Chloride Flush 3 Ml Syringe) 3 ml IVFLUSH QSHIFT [facility] Last Admin: 04/16/22 08:00 Dose: 3 ml Documented By: MOISE Sucralfate (Sucralfate Oral Suspension 1 Gm/10 Ml Oral.Susp) 1 gm PO QIDACHS [facility] Last Admin: 04/16/22 12:06 Dose: 1 gm Documented By: MOISE Venlafaxine HCl (Venlafaxine Hcl Er 37.5 Mg Cap.Er.24h) 37.5 mg PO DAILY [facility] Last Admin: 04/16/22 07:59 Dose: 37.5 mg Documented By: MOISE Labs 04/16/22 05:38 04/16/22 05:38 Labs: Laboratory Results - last 24 hr 04/16/22 04/16/22 05:38 05:38 MCV 81.5 MCH 24.3 L MCHC 29.8 L RDW 18.0 H Plt Count 62 L MPV Not Reportable Absolute Nucleated RBC 0.000 Nucleated RBC % (auto) 0.0 Anion Gap 16 Estim Creat Clear Calc 84.7 Estimated GFR > 60 Fasting Glucose 105 H Calcium 8.2 L Magnesium 1.5 L Microbiology Microbiology Results: Microbiology 04/14/22 00:00 Urine Culture - Final Urine clean catch - Clean Catch Midstream Klebsiella pneumoniae Assessment and Plan (1) Alcohol use disorder, severe, dependence: Status: Acute (2) Acute alcoholic gastritis: Status: Acute (3) Acute GI bleeding: Status: Acute (4) Alcohol withdrawal: Status: Acute (5) Hypomagnesemia: Status: Acute Plan 57-year-old with pertinent history of alcohol use disorder with alcoholic cirrhosis, mood disorder, essential hypertension who presented to the emergency department with nausea/vomiting and diarrhea, hematemesis. alcohol dependence with withdrawal continue pheonobarb, On ciwa alcohol cirrhosis complicated by pancytopenia Stable, hold aldactone with questionable bleed rifaximin Hematemesis Does have history of esophageal varices.? P.o. ppi, EGD showed evidence of gastritis with no active bleeding hepatic and gallbladder structures on US MRI showing multiple bright liver lesions suggestive of degenerative nodules, splenorenal shunt and esophageal viruses, cholelithiasis with no wall thickening Will need follow-up images with ultrasound as outpatient for the gallbladder Physical deconditioning, unsteady gait To PT evaluation Mood disorder buspar, effexor htn holding while ?bleed Hypomagnesemia Mg 1.5 replace and monitor DVT prophylaxis:? Mechanical due to gi bleed Full code reason for continued hospitalization: Alcohol withdrawal, physical deconditioning pending PT evaluation and safe discharge plan Time Spent With Patient Time: Total time managing care of this patient today ____ minutes. Quality Stroke Does the patient have a stroke diagnosis?: No VTE Prior VTE?: No VTE Risk Level:: Medical - moderate - high VTE Device Contraindication: N/A - Device Ordered VTE Drug Contraindication: Treatment Not Indicated
--- NOTE | 2022-04-16 14:08 | MHC.CM.PN ---
EMR REVIEWED, CM MET W/PT TO DISCUSS DISP, PT REPORTED SHE IS NOT INTERESTED IN INPT ETOH TX HOWEVER WOULD LIKE OUPT RESOURCES, CM NOTIFIED RECOVERY NURSE WHO WILL MEET W/PT, PT ALSO REPORTED THAT HER S.O. FOUND A SMALL APT THAT PT CAN D/C TO TOMORROW AND PT'S S.O. WILL PROVIDE TRANSPORT.
[2022-04-16] MEDS: Acetaminophen 325 MG TABLET 650 MG PO (14:36)
--- NOTE | 2022-04-16 14:41 | HO.POSTANES ---
Post Anesthesia Evaluation Post Anesthesia Evaluation Vital Signs: Vital Signs Temp Pulse Resp BP Pulse Ox O2 Del Method 04/16/22 11:24 76 157/70 H 95 04/16/22 07:35 98.1 F 76 18 157/70 H 95 Room Air 04/16/22 04:00 96.8 F 75 16 153/70 H 94 Room Air Anesthesia: Monitored Mental Status: Awake Pain Control: Satisfactory Nausea/Vomiting: None Hydration: Adequate Anesthesia-Related Issues: No Anes. Related Issues
[2022-04-16 15:24] VITALS: BP 121/62; PULSE 80; RESP 18; TEMP 36.6; O2SAT 94
[2022-04-16] MEDS: Omeprazole 20 MG CAPSULE.DR PO (16:24)
[2022-04-16 19:09] VITALS: BP 130/60; PULSE 82; RESP 16; TEMP 36.6; O2SAT 98
[2022-04-17 04:00] VITALS: BP 123/59; PULSE 73; RESP 18; TEMP 36; O2SAT 94
[2022-04-17] MEDS: Omeprazole 20 MG CAPSULE.DR PO (05:44)
[2022-04-17 07:09] LABS: Hematocrit 30.4 % (37.0-47.0); Mean Corpuscular HGB Conc 29.6 g/dl (31.0-35.0); Mean Corpuscular Hemoglobin 24.2 pg (27.0-33.0); Mean Corpuscular Volume 81.7 fL (80.0-98.0); Red Blood Count 3.72 X10*6/uL (4.20-5.50); Red Cell Distribution Width 18.4 % (11.0-16.0)
[2022-04-17 07:11] LABS: Platelet Count 73 X10*3/uL (160-400)
[2022-04-17 07:44] LABS: Blood Urea Nitrogen 6 mg/dL (9-16); Calcium 8.3 mg/dL (8.4-10.2); Creatinine Clr Calc Pharmacy 81.9; Estimated Glomerular Filt Rate > 60; Glucose Random 96 mg/dL (60-115)
[2022-04-17 08:00] VITALS: BP 144/70; PULSE 77; RESP 18; TEMP 36.6
[2022-04-17 09:04] LABS: Anion Gap 16 (12-20); Carbon Dioxide 26 mmol/L (22-29); Chloride 103 mmol/L (96-108); Potassium 3.6 mmol/L (3.3-5.1); Sodium 141 mmol/L (135-145)
[2022-04-17] MEDS: Thiamine HCL 100 MG in 0.9 % Sodium Chloride 100 ML 202 MG IV (09:31)
[2022-04-17] MEDS: Naltrexone HCl 50 MG TABLET PO (09:32)
[2022-04-17] MEDS: Folic Acid 1 MG TABLET PO ×2 (09:32)
[2022-04-17] MEDS: Gabapentin 300 MG CAPSULE PO (09:32)
[2022-04-17] MEDS: Sucralfate Oral Suspension 1 GM/10 ML ORAL.SUSP PO (09:32)
[2022-04-17] MEDS: busPIRone HCl 10 MG TABLET PO (09:33)
[2022-04-17] MEDS: Venlafaxine HCl ER 37.5 MG CAP.ER.24H PO (09:33)
[2022-04-17] MEDS: rifAXIMin 550 MG TABLET PO (09:34)
[2022-04-17] MEDS: PHENobarbitaL 15 MG TABLET PO (09:34)
[2022-04-17] MEDS: Magnesium Oxide 400 MG TABLET PO (09:34)
[2022-04-17] MEDS: 0.9 % Sodium Chloride Flush 3 ML SYRINGE IVFLUSH (09:35)
--- NOTE | 2022-04-17 11:46 | PM.DS ---
DS: Providers Provider Date of Service: 04/17/22 Date of admission: 04/13/22 22:31 Primary care physician: NEVILLE Garrison Consults: 04/13/22 22:46 Consult to Gastroenterology Routine Consulting Provider: Nick Huffman Reason for consultation: Hematemesis 04/13/22 22:53 Addiction Medicine Routine Consulting Provider: Addiction Covering Reason for consultation: alcohol use disorder Consult to Care Team Routine Comment: Reason for consultation: alcohol use disorder 04/13/22 22:56 Consult to Psychiatry Routine Consulting Provider: Psych Covering Reason for consultation: mood disorder off medications DS: Diagnosis Discharge Diagnosis (1) Alcohol use disorder, severe, dependence: Status: Acute (2) Acute alcoholic gastritis: Status: Acute (3) Acute GI bleeding: Status: Acute (4) Alcohol withdrawal: Status: Acute (5) Hypomagnesemia: Status: Acute (6) Hematemesis: Status: Acute DS: Summary Hospital Course Hospital Course: Admission note HPI This is a 57-year-old with pertinent history of alcohol use disorder with alcoholic cirrhosis, mood disorder, essential hypertension who presents to the emergency department with nausea/vomiting and diarrhea.? States she noticed blood in her vomitus couple of times through the day.? Patient states she is interested in detox and wants to be admitted to her ER facility.? She drinks significant quantity of vodka and mixed vodka drinks throughout the day.? States her last drink was 13:00.? Endorses tremors and shaking.? She states she has not been taking any prescription medications for the last 2-3 months.? She denies fever, chills, chest discomfort, palpitations, shortness of breath, changes in urinary habits. In the emergency department, CIWA was found to be 22.? Low magnesium was noted Hospital course Patient was admitted to the hospital for treatment of acute alcohol withdrawal symptoms. Started on phenobarbital protocol, IV fluid and evaluated by care team who recommended outpatient resources. Started on thiamine and folic acid as her symptoms improved over the course of hospital stay and her withdrawal symptoms resolved. She was able to participate with Physical therapy who recommended no need for therapy at discharge. Noted to have hypomagnesemia received multiple IV doses with good response. She will be discharged on oral supplement. Developed an episode of hematemesis evaluated by Gastroenterology as she did not require blood transfusion. EGD was done showing evidence of alcoholic gastritis. GI recommended outpatient p.o. PPI twice daily. She was evaluated by care team for the alcohol consumption problem. Advised for outpatient resources. She will be prescribed naltrexone at time of discharge which is her home dose that she was not taking all the time. Ultrasound was concerning for hepatic and gallbladder abnormalities. Followed by MRI showing multiple bright liver lesions suggestive of degenerative nodules, splenorenal shunt and esophageal viruses, cholelithiasis with no wall thickening Will need follow-up images with ultrasound as outpatient for the gallbladder We advise you complete abstinence from alcohol Start naltrexone 50 mg daily Pantoprazole 40 mg twice daily Start thiamine, continue folic acid To follow with PCP to repeat gallbladder ultrasound as outpatient Time Spent with Patient Time attestation: Total time managing care of this patient today ____ minutes. Discharge coordination time: Greater than 30 minutes Quality: Safe Use of Opioids Does Pt have an Active Cancer Diagnosis on the Problem List?: No Quality: Stroke Does the patient have a stroke diagnosis?: No Physical Exam Vital Signs: Vital Signs: Last Vital Signs Temp 97.9 F 04/17/22 08:00 Pulse 77 04/17/22 08:00 Resp 18 04/17/22 08:00 BP 144/70 H 04/17/22 08:00 Pulse Ox 94 04/17/22 04:00 O2 Del Method 04/17/22 08:00 BMI result Body Mass Index 30.2 Const: Other: Constitutional : Awake, interactive, not in distress Neck : Normal inspection, Supple Cardiovascular : RRR, no JVP, no lower extremity edema Respiratory : good bilateral air entry, no crackles, wheezes or rhonchi Gastrointestinal: soft, lax, Normal bowel sounds, Non tender Skin : Warm, Dry Neurological : Alert & oriented x3, No focal deficit DS: Data Data Completed and Pending Completed studies during hospitalization [Text1]: Procedures Detoxification Services for Substance Abuse Treatment (11/25/21) Inspection of Upper Intestinal Tract, Via Natural or Artificial Opening Endoscopic (10/18/21) Labs on day of discharge: Laboratory Results - last 24 hr 04/17/22 04/17/22 05:42 05:42 WBC 4.0 L RBC 3.72 L Hgb 9.0 L Hct 30.4 L MCV 81.7 MCH 24.2 L MCHC 29.6 L RDW 18.4 H Plt Count 73 L MPV Not Reportable Absolute Nucleated RBC 0.000 Nucleated RBC % (auto) 0.0 Sodium 141 Potassium 3.6 Chloride 103 Carbon Dioxide 26 Anion Gap 16 BUN 6 L Creatinine 0.62 Estim Creat Clear Calc 81.9 Estimated GFR > 60 Random Glucose 96 Calcium 8.3 L Imaging Chest x-ray: Radiologist's impression: ITS Impressions Abdomen Ultrasound 04/14/22 08:43 IMPRESSION: No acute finding. Findings consistent with reported history of hepatic cirrhosis. Multiple, 2.5 cm or less, relatively hypoechoic structures within the liver, at least 2 of which appear solid, not further characterized. Hepatocellular carcinoma cannot be confirmed or excluded. Correlation with AFP and MRI are recommended for further evaluation if clinically indicated. Findings consistent with previously identified splenorenal shunt, consistent with portal hypertension. No evidence of ascites. Spleen upper normal in size. Cholelithiasis. Suspect mild diffuse gallbladder wall thickening, nonspecific. Approximately 2 cm, fluid-containing structure with possible mural nodularity and internal septation and contiguous with the fundus of the gallbladder. Differential diagnosis includes, but is not limited to, phrygian cap containing debris, neoplasm, etc. This finding may be evaluated at the time of MRI. Abdomen MRI 04/15/22 15:33 IMPRESSION: 1. Cirrhotic liver. Multiple T1 bright lesions throughout the liver. These do not show washout on the more delayed phases. These are most consistent with regenerative nodules. No suspicious liver mass identified. 2. Splenorenal shunt and esophageal varices. Trace ascites. 3. Cholelithiasis. Cystic appearance of the gallbladder fundus, corresponding with the abnormality seen on previous imaging. No focal wall thickening identified. No nodular enhancement. Attention can be given on follow-up imaging. Discharge Plan Discharge Anticipated Discharge Date/Time: 04/17/22 11:40 Patient Disposition: Home, Self-Care Discharge Diagnosis: Alcohol abuse and withdrawal Alcoholic gastritis Hypomagnesemia Referrals: Yahaira Dove FNP [Primary Care Provider] - 1 Week Discharge Medications: New thiamine HCl (vitamin B1) 100 mg tablet 100 mg PO DAILY Qty: 30 0RF Continued melatonin 3 mg tablet 1 tab PO BEDTIME clonidine HCl 0.1 mg tablet 1 tab PO BID hydroxyzine HCl 25 mg tablet 50 mg PO BID albuterol sulfate 90 mcg/actuation HFA aerosol inhaler 90 mcg inhalation Q4H buspirone 10 mg tablet 1 tab PO BID Xifaxan 550 mg tablet 1 tab PO BID venlafaxine 37.5 mg capsule,extended release 24hr 1 cap PO DAILY naltrexone 50 mg tablet 1 tab PO DAILY Qty: 30 0RF nadolol 20 mg tablet 1 tab PO DAILY folic acid 1 mg tablet 1 tab PO DAILY spironolactone 50 mg tablet 1 tab PO DAILY magnesium oxide 400 mg (241.3 mg magnesium) tablet 400 mg PO DAILY Changed pantoprazole 40 mg tablet,delayed release (DR/EC) 40 mg PO BID Qty: 60 1RF Discharge Orders: Discharge Order (Routine); Ordered 04/17/22 Ordered By: Trudi Birmingham Diet: Advance to usual diet Activity on Discharge: As tolerated Stand Alone Forms: Patient Portal Discharge page Care Plan Goals: Read below Health Concerns: Read below Plan of Treatment: Read below Assessment: You were admitted to the hospital for evaluation of alcohol withdrawal symptoms. Developed blood with vomiting. Treated with phenobarbital protocol, IV fluid an and assets as you were evaluated by pilot safety inspector who did an upper endoscopy showing evidence of alcoholic gastritis. We advise you complete abstinence from alcohol Start naltrexone 50 mg daily Pantoprazole 40 mg twice daily Start thiamine, continue folic acid
--- NOTE | 2022-04-17 11:56 | MHC.RECOVRN ---
Met with pt to provide resources for outpatient AUD treatment and support. Discussed different options. Pt denies questions or concerns. Provided with t/w contact information if needed.
--- NOTE | 2022-04-17 12:34 | MHC.CM.PN ---
CM MET WITH PT AND PARTNER AT THEIR REQUEST THEY EXPLAIN PTS SSDI BENEFITS DID NOT COME IN ON THE 3RD EXPECTED THEY ARE REQUESTING TRANSPORT TO [facility]. THEY ARE AWARE THEY WILL NEED TO WORK OUT ALTERNATE TRANSPORT FROM THERE. THEY REPORT THEY CAN TAKE THE BUS FROM THERE TO [place], THEY JUST DO NOT FEEL PT CAN PHYSICALLY MANAGE ANY MORE THAN THAT PT WILL DC TODAY AND REPORTS SHE PLANS TO GET A [place] ROOM WITH HER BOYFRIEND
== END 2022-04-17 13:39 | disposition home or self-care (01) | DRG 378 ==
LOC: HO.ED 04-14 00:59 → HO.EDOVER 04-14 01:11 → HO.S3 04-14 19:26
PROVIDERS: Internal Medicine; Internal Medicine Gastroenterology; Nurse Practitioner Family; Admitting Provider Student in an Organized Health Care Education/Training Program; Emergency Provider Internal Medicine; PCP Nurse Practitioner Family; Visit Provider Student in an Organized Health Care Education/Training Program
PROC: 0DJ08ZZ Inspection of Upper Intestinal Tract, Via Natural or Artificial Opening Endoscopic (ICD-10-PCS; CPT 43235; principal; 2022-04-15 12:30)
DX: K29.21 Alcoholic gastritis with bleeding (principal); D61.818 Other pancytopenia; F10.239 Alcohol dependence with withdrawal, unspecified; F33.1 Major depressive disorder, recurrent, moderate; F41.9 Anxiety disorder, unspecified; E83.42 Hypomagnesemia; D69.59 Other secondary thrombocytopenia; K70.30 Alcoholic cirrhosis of liver without ascites; Z91.14 Patient's other noncompliance with medication regimen; Q26.5 Anomalous portal venous connection; Z20.822 Contact with and (suspected) exposure to COVID-19; Z87.891 Personal history of nicotine dependence; Z56.0 Unemployment, unspecified; Z88.0 Allergy status to penicillin; Z88.2 Allergy status to sulfonamides; Z79.899 Other long term (current) drug therapy
CPT/HCPCS: 0241U; 36415; 74183; 76700; 80048; 80076; 80307; 81001; 82077; 83690; 83735; 84484; 85025; 85027; 85610; 85730; 87086; 87088; 87186; 93005; 97161; 99285; A9585; J2060; J2560; J3411; J3475

== ENCOUNTER 2022-05-01 05:54 | Emergency (ER) | payer OTHER, SELFPAY ==
[2022-05-01 05:57] VITALS: BP 128/52; BP 138/74; PULSE 87; PULSE 90; RESP 15; TEMP 36.6; O2SAT 93; O2SAT 95; BMI 43.3
--- NOTE | 2022-05-01 06:23 | MHC.EDTECH ---
ekg was done 0615 am
--- NOTE | 2022-05-01 06:49 | PC.NURSE ---
pt admitted to applied behavior science specialist that she brought alcohol in her bag. pt asked applied behavior science specialist to give it to her. this rn called security to secure alcohol. pt agitated by this. pt awaiting to be seen by ed provider
[2022-05-01 08:32] VITALS: BP 141/72; PULSE 99; RESP 14; TEMP 36.7; O2SAT 94
[2022-05-01 08:32] LABS: Ethanol 320 mg/dL
--- NOTE | 2022-05-01 08:42 | ED_ITS ---
HPI - Alcohol General Chief Complaint: ETOH/Substance Use Stated Complaint: ETOH INTOX FROM HOME PER EMS Time Seen by Provider: 05/01/22 08:01 Source: patient Mode of arrival: EMS Limitations: no limitations History of Present Illness HPI narrative: 57-year-old female with history of alcohol abuse presents with acute alcohol intoxication. Patient reports drinking 100 proof schnapps. She denies any drug abuse. She denies any SI or HI. She is unclear how she got to the emergency department. She denies any depression, anxiety. She does not wish for any help at this time regarding her alcohol related illness. She has no headache, fever, chills, cough, mucus production. She denies any nausea, vomiting, diarrhea, melanotic stool, emesis. Intoxication appears to be moderate in nature. Her symptoms are exacerbated by alcohol ingestion. Related Data Home Medications Medication Instructions Recorded Confirmed folic acid 1 mg tablet 1 tab PO DAILY 03/02/21 04/14/22 nadolol 20 mg tablet 1 tab PO DAILY 03/02/21 04/14/22 melatonin 3 mg tablet 1 tab PO BEDTIME 10/18/21 04/14/22 magnesium oxide 400 mg (241.3 mg 400 mg PO DAILY 11/25/21 04/14/22 magnesium) tablet spironolactone 50 mg tablet 1 tab PO DAILY 11/25/21 04/14/22 albuterol sulfate 90 mcg/actuation 90 mcg inhalation Q4H 04/14/22 04/14/22 aerosol inhaler buspirone 10 mg tablet 1 tab PO BID 04/14/22 04/14/22 clonidine HCl 0.1 mg tablet 1 tab PO BID 04/14/22 04/14/22 hydroxyzine HCl 25 mg tablet 50 mg PO BID 04/14/22 04/14/22 rifaximin 550 mg tablet (Xifaxan) 1 tab PO BID 04/14/22 04/14/22 venlafaxine 37.5 mg 1 cap PO DAILY 04/14/22 04/14/22 capsule,extended release 24 hr Previous Rx's Medication Instructions Recorded naltrexone 50 mg tablet 1 tab PO DAILY #30 tabs 04/17/22 pantoprazole 40 mg tablet,delayed 40 mg PO BID #60 tabs 04/17/22 release thiamine HCl (vitamin B1) 100 mg 100 mg PO DAILY #30 tabs 04/17/22 tablet Allergies Allergy/AdvReac Type Severity Reaction Status Date / Time Penicillins Allergy Mild Rash Verified 04/14/22 19:46 levofloxacin [From Levaquin] AdvReac Severe Difficulty Verified 04/15/22 11:40 Breathing peanut AdvReac Severe Anaphylaxis Verified 04/15/22 11:40 Peanut Butter AdvReac Severe Anaphylaxis Verified 04/15/22 11:40 Sulfa (Sulfonamide AdvReac Severe Difficulty Verified 04/15/22 11:40 Antibiotics) Breathing Review of Systems Review of Systems: CONSTITUTIONAL: Denies weight loss, fever and chills. HEENT: Denies changes in vision and hearing. RESPIRATORY: Denies SOB and cough. CV: Denies palpitations no CP. GI: Denies abdominal pain, nausea, vomiting and diarrhea. : Denies dysuria and urinary frequency. MSK: Denies myalgia and joint pain. SKIN: Denies rash and pruritus. NEUROLOGICAL: Denies headache and syncope. PSYCHIATRIC: Denies recent changes in mood. Denies anxiety and depression. All other ROS are negative unless in HPI PMFSH Past Medical History Medical History Alcohol abuse with withdrawal Alcoholic cirrhosis of liver Anxiety Depression Hypertension Surgical History H/O foot surgery Family History Family History Mother Pancreatic cancer Social History Social History Household Members: Other Household Members Other:: boyfriend Housing: Apartment Do you presently have visiting nurse or other home services: No Alcohol intake: current Alcohol intake frequency: 3 or more drinks per day Alcohol type: hard liquor Patient Tobacco Use Status: Former Tobacco user Smoked in Last 30 Days: Yes Use of substances other than those prescribed or required for medical reasons: Refusing to respond Substance Use Type: Marijuana Advance Directives: Yes Advance Directives on File: Yes Advance Directives Date on File: 03/11/21 Patient : No service: No Current occupational status: unemployed Physical Exam ED Vital Signs: Vital Signs - 24 hr 05/01/22 05:57 05/01/22 08:32 Temperature 97.8 F 98.0 F Pulse Rate 87 99 Respiratory Rate 15 14 Blood Pressure 128/52 L 141/72 H Pulse Oximetry 93 94 Oxygen Delivery Method Room Air Room Air BMI result Body Mass Index 43.3 GEN: Well developed, no acute distress, alert, oriented HEENT: Normocephalic, atraumatic, normal external ears, nose appears normal, no oropharyngeal edema or exudates Eyes: Normal to appearance Neck: Supple, no lymphadenopathy Respiratory: Talks in complete sentences, no respiratory distress, clear to auscultation bilaterally Cardiovascular: Regular rate and rhythm, no murmurs rubs or gallops Abdomen: Soft, nontender, nondistended, no guarding, no rebound Back: No CVA tenderness Extremities: No clubbing cyanosis or edema Neurologic: No focal neurologic deficits, cranial nerves 2-12 intact, strength is 5/5 bilaterally, gait normal Skin: No rash Course Course Course Narrative: 57-year-old female presents with acute alcohol intoxication. Patient drinks daily. She does not wish for any help at this time. She offers no concerns for depression, anxiety, SI, HI. She has no medical complaints and has no focal neurologic deficits. Patient uses a cane to ambulate and was able to ambulate steadily. She was informed that if she wishes to leave she can do so with a sober friend. She is contacting her significant other to come pick her up by cab. Medical Decision Making Medical Decision Making [facility] Narrative: Per 57-year-old female with history of alcohol abuse presents with acute alcohol intoxication. Patient has no acute psychiatric concerns. She has decision- making capacity at this time wishes to leave. Informed her that she can contact her significant other to pick her up as long as he is sober she may be discharged into his care. Differential Diagnosis Differential Diagnoses: The differential diagnosis associated with the presentation includes (Alcohol intoxication, drug abuse) Admission/Observation Consideration of admission/observation: Escalation of care including admission/observation considered Lab Data [facility] Lab Attestation statement: I reviewed the patient's lab results. Labs: Lab Results 05/01/22 Range/Units 08:02 Ethyl Alcohol 320 H* mg/dL External Record Review Previous emergency department visits Tests considered The following testing was considered but not selected: CBC, chemistry Chronic Conditions Patient?s care impacted by: Other (Alcohol abuse) Discharge Plan Discharge Clinical Impression: Alcoholic intoxication Instructions: Abuse of Alcohol (ED), Alcohol Intoxication (ED) Prescriptions: No Action melatonin 3 mg tablet 1 tab PO BEDTIME clonidine HCl 0.1 mg tablet 1 tab PO BID hydroxyzine HCl 25 mg tablet 50 mg PO BID albuterol sulfate 90 mcg/actuation HFA aerosol inhaler 90 mcg inhalation Q4H buspirone 10 mg tablet 1 tab PO BID Xifaxan 550 mg tablet 1 tab PO BID venlafaxine 37.5 mg capsule,extended release 24hr 1 cap PO DAILY thiamine HCl (vitamin B1) 100 mg tablet 100 mg PO DAILY Qty: 30 0RF naltrexone 50 mg tablet 1 tab PO DAILY Qty: 30 0RF pantoprazole 40 mg tablet,delayed release (DR/EC) 40 mg PO BID Qty: 60 1RF nadolol 20 mg tablet 1 tab PO DAILY folic acid 1 mg tablet 1 tab PO DAILY spironolactone 50 mg tablet 1 tab PO DAILY magnesium oxide 400 mg (241.3 mg magnesium) tablet 400 mg PO DAILY Referrals: Physician,Unknown J [Primary Care Provider] - (Follow-up with primary care provider in 2-3 days) Interventions: [place]-Suicide Risk Severity Scale Last Done: 05/01/22 06:52
[2022-05-01 10:00] VITALS: RESP 18
--- NOTE | 2022-05-01 12:51 | PC.NURSE ---
PT AMBULATING INDEPENDENTLY AND STEADILY WITH NO ISSUE.
== END 2022-05-01 13:12 | disposition home or self-care (01) ==
PROVIDERS: Emergency Provider Emergency Medicine
DX: F10.220 Alcohol dependence with intoxication, uncomplicated (principal); Y90.8 Blood alcohol level of 240 mg/100 ml or more
CPT/HCPCS: 36415; 82077; 99284

== ENCOUNTER 2022-05-03 23:12 | Emergency (ER) | payer OTHER, SELFPAY ==
[2022-05-03 23:27] VITALS: BP 112/60; BP 190/120; PULSE 80; PULSE 94; RESP 16; TEMP 36.4; O2SAT 100; O2SAT 87; BMI 40.4
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
[2022-05-03] MEDS: 0.9 % Sodium Chloride 1,000 ML 999 ML IV (23:54)
[2022-05-03] MEDS: Famotidine 20 MG TABLET PO (23:54)
[2022-05-04] VITALS (9 sets, daily range): BP systolic 110–134; BP diastolic 52–62; PULSE 65–90; RESP 14–94; TEMP 36.8–36.9; O2SAT 95–99
--- NOTE | 2022-05-04 | ECG_ITS ---
Test Reason : CHEST PAIN Blood Pressure : / mmHG Vent. Rate : 071 BPM Atrial Rate : 071 BPM P-R Int : 138 ms QRS Dur : 082 ms QT Int : 448 ms P-R-T Axes : 014 031 040 degrees QTc Int : 486 ms Normal sinus rhythm Cannot rule out Anterior infarct , age undetermined Abnormal ECG When compared with ECG of 13-APR-2022 21:48, No significant change was found Referred By: Maco Worthington Electronically Signed By:KIRILL PUTNAM
[2022-05-04 00:08] LABS: MANUAL DIFF FLAG NO
[2022-05-04 00:09] LABS: Basophils Absolute Auto 0.1 X10*3/uL (0.0-0.2); Basophils Percent Auto 1.1 % (0-2); Eosinophils Absolute Auto 0.2 X10*3/uL (0.0-0.4); Eosinophils Percent Auto 3.4 % (0-4); Hemoglobin 8.5 g/dl (12.0-16.0); Imm Gran Abs Auto 0.02 X10*3/uL (0.00-0.03); Imm Gran Pct Auto 0.5 % (0.0-0.4); Lymphocytes Absolute Auto 0.8 X10*3/uL (1.2-4.9); Lymphocytes Percent Auto 17.2 % (20-40); Mean Corpuscular HGB Conc 29.3 g/dl (31.0-35.0); Mean Corpuscular Hemoglobin 23.2 pg (27.0-33.0); Mean Corpuscular Volume 79.2 fL (80.0-98.0); Mean Platelet Volume 10.2 fL (9.4-12.3); Monocytes Absolute Auto 0.6 X10*3/uL (0.1-1.2); Monocytes Percent Auto 14.7 % (2-11); Neutrophils Absolute Auto 2.7 x10*3/uL (2.0-8.3); Neutrophils Percent Auto 63.1 % (45-73); Red Blood Count 3.66 X10*6/uL (4.20-5.50); Red Cell Distribution Width 18.7 % (11.0-16.0); White Blood Count 4.4 X10*3/uL (4.8-10.8)
[2022-05-04 00:11] LABS: Platelet Count 75 X10*3/uL (160-400)
[2022-05-04 00:15] LABS: INTERNATIONAL NORM RATIO 1.2 (0.9-1.1)
--- NOTE | 2022-05-04 00:15 | PC.NURSE ---
pt reports feeling chest pains, HR in 140s on monitor, ordered EKG. Pt states pain has subsided now and heart rate has gone down to 70s normal sinus
[2022-05-04 00:18] LABS: Partial Thromboplastin Time 36.5 SEC (26.0-36.4)
[2022-05-04 00:28] LABS: Alanine Aminotransferase 17 U/L (0-31); Albumin Level 3.2 g/dL (3.5-5.0); Alkaline Phosphatase 79 U/L (39-117); Anion Gap 10 (12-20); Aspartate Amino Transferase 40 U/L (5-31); Bilirubin Total 1.3 mg/dL (0.0-1.0); Blood Urea Nitrogen 5 mg/dL (9-16); Calcium 7.8 mg/dL (8.4-10.2); Carbon Dioxide 32 mmol/L (22-29); Chloride 109 mmol/L (96-108); Creatinine Clr Calc Pharmacy 102.5; Estimated Glomerular Filt Rate > 60; Ethanol 346 mg/dL; Glucose Random 87 mg/dL (60-115); Lipase 45 U/L (8-78); Potassium 3.4 mmol/L (3.3-5.1); Sodium 148 mmol/L (135-145); Total Protein 6.2 g/dL (6.5-8.0)
--- NOTE | 2022-05-04 01:10 | PC.NURSE ---
pt sleeping at this time, respirations even and unlabored, no apparent distress. prior to pt falling asleep, CIWA scale complete
--- NOTE | 2022-05-04 03:00 | PC.NURSE ---
pt continues to sleep, no apparent distress, no sweating, no tremors, respirations even and unlabored, skin pwd
--- NOTE | 2022-05-04 08:38 | MHC.EDTECH ---
dent remover with security. New linens placed, bed in low, locked position.
[2022-05-04] MEDS: chlordiazePOXIDE HCl 25 MG CAPSULE 50 MG PO (09:15)
--- NOTE | 2022-05-04 10:04 | PHA.MEDREC ---
Pharmacy Consult ? Medication Reconciliation Pharmacy has completed the medication reconciliation Spoke to patient to confirm meds. Patient had mentioned that they stopped taking their medications about 3-4 weeks ago and has used alcohol as a replacement . Confirmed medications are meds she recognizes and states she should still be on, but has stopped taking on her own decision.
--- NOTE | 2022-05-04 12:17 | MHC.EDTECH ---
assist patient from bed to commode and from commode to bed
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
--- NOTE | 2022-05-04 13:17 | MHC.RECOVSUP ---
? Reason for consult:Recovery Support o Current location: ED 16? o Identified substance use concern: AUD? - Support ? ?Intervention: o Community resources provided o Harm reduction discussion ? Additional information:?Patient consult with medical team before entry. volleyball assistant coach met with patient to discuss detox and additional treatment. Harm reduction strategies were discussed along with personal experience. Patient is not interested in furthering her treatment for alcoholism. Community resources was suggested and given.
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
[2022-05-04] MEDS: hydrOXYzine HCL 25 MG TABLET PO (13:55)
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
== END 2022-05-04 14:34 | disposition home or self-care (01) ==
PROVIDERS: Emergency Provider Emergency Medicine Emergency Medical Services
DX: Z04.71 Encounter for examination and observation following alleged adult physical abuse (principal); F10.220 Alcohol dependence with intoxication, uncomplicated; Y90.8 Blood alcohol level of 240 mg/100 ml or more; R94.31 Abnormal electrocardiogram [ECG] [EKG]; K70.30 Alcoholic cirrhosis of liver without ascites; I10 Essential (primary) hypertension; Z79.899 Other long term (current) drug therapy
CPT/HCPCS: 36415; 80053; 82077; 83690; 85025; 85610; 85730; 93005; 96361; 96365; 99285; J2550

== ENCOUNTER 2022-05-04 18:00 | Emergency (ER) | payer OTHER, SELFPAY ==
[2022-05-04 18:17] VITALS: BP 146/81; BP 150/62; PULSE 89; PULSE 94; RESP 18; TEMP 36.6; O2SAT 95; O2SAT 96; BMI 33.3
--- NOTE | 2022-05-04 19:25 | MHC.EDTECH ---
pt was assist to the bathroom ,pt very unsteady .
[2022-05-04 21:06] VITALS: BP 145/89; PULSE 98; RESP 18; TEMP 36.6; O2SAT 97
[2022-05-04] MEDS: LORazepam 2 MG/ML VIAL IM (23:56)
[2022-05-04 23:58] VITALS: BP 134/62; PULSE 79; RESP 18; TEMP 36.6; O2SAT 95
[2022-05-05] VITALS (9 sets, daily range): BP systolic 124–150; BP diastolic 49–84; PULSE 65–95; RESP 14–20; TEMP 36.6–37.3; O2SAT 90–97
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
--- NOTE | 2022-05-05 04:14 | MHC.EDTECH ---
pt incontinent of urine in bed. Bedding changed and new gown give. Commode at bedside, pt encouraged to get out of bed to use commode.
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
--- NOTE | 2022-05-05 07:19 | MHC.EDTECH ---
Pt was incontinent of large amount of urine. Assisted to the bedside commode and given a partial bed bath with assistance. Pt requires stand by assistance for transfers. Pt returned to bed, head of elevated. Call lopes given.
--- NOTE | 2022-05-05 07:31 | PC.NURSE ---
pt is a/o x 4 no sob/amna noted lungs - exp wheezing all lobes. pt states that she has copd. heart sounds regular. abd soft and non-tender, bs + x 4 quads. no edema noted. pt aware of plan of care. breakfast ordered.
--- NOTE | 2022-05-05 08:46 | MHC.CM.ED ---
Received case management consult overnight. Care Team consult also ordered for ETOH detox. Consult will be deferred at this time.
--- NOTE | 2022-05-05 11:38 | MHC.RECOVRN ---
Met with pt in ED18 to discuss substance use and desire for treatment. Pt laying in bed, awake, alert, easily engages in conversation. Pt reports drinking 1/2 pint peppermint schnapps plus a few vodka drinks daily x years. Family hx AUD including parents, grandparents, aunts and uncles. Pt reports going to treatment years ago at [facility]. Pt might be interested in treatment at this time. Discussed different levels of care. Pt reports difficulty with ambulation and transferring to commode. Pt reports needing assistance with ADLs. Pt educated regarding ATS/CSS in regards to being able to complete ADLs and need for independent care. Discussed other recovery supports and resources. Pt denies questions and concerns at this time. Discussed with case management.
--- NOTE | 2022-05-05 14:41 | MHC.CM.ED ---
Per Anai, water resources program director, patient would not be able to go to detox d/t ambulation status. Physical therapy eval ordered and is pending. Patient's ETOH level was 346 when she came to the ER. CIWA was 3 earlier today. Last CIWA score was 0. Patient's CIWA will need to be 0 for at least 24 hours before any nursing home facility will accept her. Continue to monitor for d/c needs.
--- NOTE | 2022-05-05 14:45 | PHA.MEDREC ---
Pharmacy Consult ? Medication Reconciliation Pharmacy has completed the medication reconciliation. PT HERE YESTERDAY
--- NOTE | 2022-05-05 15:47 | PC.NURSE ---
Pt alert and oriented, resp even and unlabored. Pt up to use commode with one assist, purewick use was discontinued.
[2022-05-05] MEDS: Omeprazole 20 MG CAPSULE.DR PO (15:57)
[2022-05-05] MEDS: Spironolactone 25 MG TABLET 50 MG PO (15:58)
[2022-05-05] MEDS: Naltrexone HCl 50 MG TABLET PO (15:58)
[2022-05-05] MEDS: Thiamine HCL 100 MG TABLET PO (15:58)
[2022-05-05] MEDS: Multivitamin TABLET 1 TAB PO (15:58)
[2022-05-05] MEDS: Magnesium Oxide 400 MG TABLET PO (15:58)
[2022-05-05] MEDS: Folic Acid 1 MG TABLET PO (15:58)
[2022-05-05] MEDS: Venlafaxine HCl ER 37.5 MG CAP.ER.24H PO (17:19)
[2022-05-05] MEDS: nadoloL 20 MG TABLET PO (17:19)
--- NOTE | 2022-05-05 18:10 | PC.NURSE ---
Pt resting comfortably in bed, offering no complaints. Call lopes within reach. Pt understands plan for physical therapy and case management to see her tomorrow.
[2022-05-05] MEDS: busPIRone HCl 10 MG TABLET PO (20:54)
[2022-05-05] MEDS: Ibuprofen 400 MG TABLET PO (20:54)
[2022-05-05] MEDS: cloNIDine HCL 0.1 MG TABLET PO (20:55)
[2022-05-05] MEDS: rifAXIMin 550 MG TABLET PO (21:53)
[2022-05-06] VITALS (7 sets, daily range): BP systolic 109–141; BP diastolic 46–74; PULSE 58–94; RESP 16–18; TEMP 36.6–36.8; O2SAT 93–98
[2022-05-06] MEDS: Omeprazole 20 MG CAPSULE.DR PO ×2 (06:10→16:09)
--- NOTE | 2022-05-06 06:20 | PC.NURSE ---
pt assessed during the shift, reported mild lower back pain, oob to commode
--- NOTE | 2022-05-06 07:53 | PC.NURSE ---
physical therapy at bedside pt aware of plan of care.
--- NOTE | 2022-05-06 08:38 | MHC.CM.ED ---
Addendum entered by Belén Hall 05/06/22 13:05: Referral broadcasted to all facitlies within 25 miles that are contracted with patient's insurance. Original Note: Patient remains in ER overflow. Physical therapy eval completed. Short term rehab is recommended. CIWA on 05/05 at 9pm was 7. Will not be able to find placement for patient until CIWA has been 0 for at least 24 hours. Leela GO CART MECHANIC aware. Continue to monitor for d/c needs.
[2022-05-06] MEDS: Thiamine HCL 100 MG TABLET PO (09:02)
[2022-05-06] MEDS: Magnesium Oxide 400 MG TABLET PO (09:03)
[2022-05-06] MEDS: busPIRone HCl 10 MG TABLET PO ×2 (09:03→21:28)
[2022-05-06] MEDS: Multivitamin TABLET 1 TAB PO (09:03)
[2022-05-06] MEDS: Folic Acid 1 MG TABLET PO (09:03)
[2022-05-06] MEDS: Spironolactone 25 MG TABLET 50 MG PO (09:03)
[2022-05-06] MEDS: cloNIDine HCL 0.1 MG TABLET PO ×2 (09:04→21:28)
[2022-05-06] MEDS: Naltrexone HCl 50 MG TABLET PO (09:04)
[2022-05-06] MEDS: nadoloL 20 MG TABLET PO (09:04)
[2022-05-06] MEDS: rifAXIMin 550 MG TABLET PO ×2 (09:05→21:29)
[2022-05-06] MEDS: Venlafaxine HCl ER 37.5 MG CAP.ER.24H PO (09:05)
--- NOTE | 2022-05-06 09:14 | PC.NURSE ---
pt is a/o x no sob/amna noted speaks in full sentences. lungs - cta. pt ate breakfast. ciwa - zero. pt aware of plan of care.
[2022-05-06 10:23] LABS: MANUAL DIFF FLAG NO
[2022-05-06 10:37] LABS: Basophils Absolute Auto 0.1 X10*3/uL (0.0-0.2); Basophils Percent Auto 1.1 % (0-2); Eosinophils Absolute Auto 0.4 X10*3/uL (0.0-0.4); Eosinophils Percent Auto 9.3 % (0-4); Hematocrit 28.1 % (37.0-47.0); Hemoglobin 8.3 g/dl (12.0-16.0); Imm Gran Abs Auto 0.02 X10*3/uL (0.00-0.03); Imm Gran Pct Auto 0.5 % (0.0-0.4); Lymphocytes Absolute Auto 0.6 X10*3/uL (1.2-4.9); Lymphocytes Percent Auto 13.4 % (20-40); Mean Corpuscular HGB Conc 29.5 g/dl (31.0-35.0); Mean Corpuscular Hemoglobin 23.2 pg (27.0-33.0); Mean Corpuscular Volume 78.7 fL (80.0-98.0); Monocytes Absolute Auto 0.6 X10*3/uL (0.1-1.2); Monocytes Percent Auto 13.4 % (2-11); Neutrophils Absolute Auto 2.8 x10*3/uL (2.0-8.3); Neutrophils Percent Auto 62.3 % (45-73); Red Blood Count 3.57 X10*6/uL (4.20-5.50); Red Cell Distribution Width 18.9 % (11.0-16.0); White Blood Count 4.4 X10*3/uL (4.8-10.8)
[2022-05-06 10:38] LABS: Platelet Count 64 X10*3/uL (160-400)
--- NOTE | 2022-05-06 10:43 | MHC.EDTECH ---
Pt oob to commode, washed up and new linens in place. Pt resting quietly watching tv, call lopes within reach.
[2022-05-06 10:52] LABS: Alanine Aminotransferase 15 U/L (0-31); Albumin Level 3.2 g/dL (3.5-5.0); Alkaline Phosphatase 73 U/L (39-117); Anion Gap 13 (12-20); Aspartate Amino Transferase 35 U/L (5-31); Bilirubin Direct 0.7 mg/dL (0.0-0.5); Bilirubin Total 1.9 mg/dL (0.0-1.0); Blood Urea Nitrogen 8 mg/dL (9-16); Calcium 8.3 mg/dL (8.4-10.2); Carbon Dioxide 22 mmol/L (22-29); Chloride 105 mmol/L (96-108); Creatinine Clr Calc Pharmacy 97.1; Estimated Glomerular Filt Rate > 60; Glucose Random 86 mg/dL (60-115); Magnesium 1.3 mg/dL (1.6-2.6); Potassium 3.4 mmol/L (3.3-5.1); Sodium 137 mmol/L (135-145); Total Protein 6.1 g/dL (6.5-8.0)
[2022-05-06] MEDS: Magnesium Oxide 400 MG TABLET 800 MG PO (11:16)
--- NOTE | 2022-05-06 14:30 | MHC.EDTECH ---
Pt incontinent of stool, bed linens changed and patient washed up. Pt repositioned to right side, resting quietly watching tv, call lopes within reach.
--- NOTE | 2022-05-06 22:16 | PC.NURSE ---
Patient was alert and oriented x 3. but became confused at bedtime. Patient could not remember date thought it was 05/01. Patient denies pain, sob, and dizziness walking to bathroom with cane.
[2022-05-07] MEDS: Ibuprofen 400 MG TABLET PO (00:01)
[2022-05-07 06:13] VITALS: BP 122/65; PULSE 74; RESP 16; TEMP 36.6; O2SAT 94
[2022-05-07] MEDS: Omeprazole 20 MG CAPSULE.DR PO (06:17)
[2022-05-07] MEDS: Magnesium Oxide 400 MG TABLET PO (08:01)
[2022-05-07] MEDS: Thiamine HCL 100 MG TABLET PO (08:01)
[2022-05-07] MEDS: busPIRone HCl 10 MG TABLET PO (08:01)
[2022-05-07] MEDS: Spironolactone 25 MG TABLET 50 MG PO (08:01)
[2022-05-07] MEDS: Folic Acid 1 MG TABLET PO (08:01)
[2022-05-07] MEDS: Multivitamin TABLET 1 TAB PO (08:01)
[2022-05-07] MEDS: Naltrexone HCl 50 MG TABLET PO (08:11)
[2022-05-07] MEDS: rifAXIMin 550 MG TABLET PO (08:11)
[2022-05-07] MEDS: cloNIDine HCL 0.1 MG TABLET PO (08:11)
[2022-05-07] MEDS: nadoloL 20 MG TABLET PO (08:11)
[2022-05-07] MEDS: Venlafaxine HCl ER 37.5 MG CAP.ER.24H PO (08:11)
[2022-05-07 08:20] VITALS: BP 144/86; PULSE 58; RESP 20; TEMP 36.6; O2SAT 98
--- NOTE | 2022-05-07 09:17 | MHC.CM.ED ---
Addendum entered by Belén Hall 05/07/22 10:22: Received notification from Racquel VILLA that patient wants to leave AMA. Wendy CONNORS aware. Original Note: Patient remains in ER overflow. [facility] today. Patient will need a [facility] Level 2 due to ETOH. T/W submitted Level 1 to [facility]. Megue to monitor for d/c needs.
--- NOTE | 2022-05-07 10:22 | PC.NURSE ---
Patient stating she would like to leave the hospital AMA. Stating my boyfriend got us a motel room and we are going to start our lives. Provider and case management made aware.
== END 2022-05-07 10:44 | disposition left against medical advice (07) ==
PROVIDERS: Nurse Practitioner Family; Emergency Provider Emergency Medicine Emergency Medical Services
DX: F10.239 Alcohol dependence with withdrawal, unspecified (principal); R25.1 Tremor, unspecified; R26.81 Unsteadiness on feet; F12.90 Cannabis use, unspecified, uncomplicated; Y90.9 Presence of alcohol in blood, level not specified; Z79.899 Other long term (current) drug therapy; Z87.891 Personal history of nicotine dependence; Z59.00 Homelessness unspecified
CPT/HCPCS: 36415; 80048; 80076; 83735; 85025; 94640; 96372; 97162; 99285; J2060

== ENCOUNTER 2022-06-12 13:56 | Inpatient (IN) | payer OTHER, SELFPAY ==
--- NOTE | ~2022-06-12 | CT_ITS ---
EXAMINATION: CT ABDOMEN AND PELVIS WITHOUT CONTRAST CLINICAL INFORMATION: Abdominal pain. Bloody diarrhea. COMPARISON: MRI abdomen dated 04/15/2022 CT abdomen/pelvis dated 11/25/2021 TECHNIQUE: Multidetector volumetric imaging was performed from the superior aspect of the liver through the pubic symphysis. Sagittal and coronal reformatted images were obtained on the technologist's workstation. This CT examination was performed using dose optimization techniques as appropriate, variously including the following: *Automated exposure control *Adjustment of mA and/or kV according to patient size (this includes techniques or standardized protocols for targeted exams where dose is matched to indication/reason for exam; i.e. extremities or head) *Use of iterative reconstruction technique DLP: 783 mGy-cm FINDINGS: LUNG BASES: The visualized lung bases are unremarkable. LIVER, GALLBLADDER, AND BILIARY TREE: Morphologically cirrhotic liver with diffuse hepatic steatosis. Multiple rounded masses redemonstrated, scattered throughout the liver measuring greater in attenuation within the investing fatty hepatic parenchyma. No appreciable change in size or number since November 2021. Cholelithiasis. Abnormality of the gallbladder fundus redemonstrated, which on the previous MRI was most suggestive of focal adenomyomatosis. No biliary dilatation. PANCREAS: Unremarkable. SPLEEN: Unremarkable. ADRENAL GLANDS: Unremarkable. KIDNEYS AND URETERS: The kidneys are normal in size, shape, and attenuation. No hydronephrosis, hydroureter, or calculi seen. No perinephric stranding. BLADDER: Unremarkable. GASTROINTESTINAL TRACT: No bowel related abnormalities. No evidence of appendicitis (appendix may be surgically absent). ABDOMINAL WALL: No significant hernia is appreciated. LYMPH NODES: Normal. VASCULAR: Aorta is atherosclerotic. Prominent splenorenal shunt redemonstrated. Esophageal varices. Recanalized periumbilical vein. PELVIC VISCERA: Risks and adnexa unremarkable. OSSEOUS STRUCTURES: No acute or suspicious osseous abnormalities. Chronic mild anterior wedge compression fracture at L1 and superior endplate deformity at L3. Chronic mild anterior wedge compression fracture at T9. CT/CT abdomen pelvis wo IV con IMPRESSION: * No acute findings within the abdomen or pelvis to explain the patient's symptomatology. Specifically, no bowel related abnormalities. * Morphologically cirrhotic liver with diffuse hepatic steatosis. * Multiple rounded masses redemonstrated throughout the liver, unchanged in size or number since November 2021. Previous MRI showed corresponding intrinsically T1 bright signal without washout within these nodules suggesting that they represent regenerative nodules. No appreciable change since November 2021. Continued MR imaging surveillance of the abdomen recommended, as clinically indicated * Splenorenal shunt and esophageal varices redemonstrated. * Cholelithiasis. * Focal adenomyomatosis of the gallbladder fundus.
--- NOTE | ~2022-06-12 | XR_ITS ---
EXAMINATION: XR CHEST CLINICAL INFORMATION: SOB COMPARISON: None available. TECHNIQUE: 2 views of the chest were obtained. FINDINGS: No significant abnormality is noted involving the heart, lungs, mediastinum, bony thorax or soft tissues. XR/XR chest 2V IMPRESSION: Unremarkable chest examination.
--- NOTE | 2022-06-12 14:05 | ED_ITS ---
HPI - SOB/Dyspnea General Chief Complaint: Dyspnea <GAEB Clay - Last Filed: 06/12/22 14:13> Stated Complaint: SOB,WHEEZE,94% RA PER EMS <GABE Clay - Last Filed: 06/12/22 14:13> Time Seen by Provider: 06/12/22 14:36 <GABE Clay - Last Filed: 06/12/22 14:13> Source: patient <Soo Ruelas MD - Last Filed: 06/12/22 18:48> Mode of arrival: EMS <Soo Ruelas MD - Last Filed: 06/12/22 18:48> History of Present Illness HPI Narrative: 57-year-old female who presents via EMS and reports a history of alcohol use disorder, last drink was this morning and she typically drinks half a pt of peppermint schnapps a day and feels like she may be withdrawing, patient also reported increased shortness of breath with a known underlying COPD condition but states that her partner through all of her medication away. Patient reports feeling chest pressure 1 coughing but otherwise denies fever or chills. <Soo Ruelas MD - Last Filed: 06/12/22 18:48> Related Data Home Medications: Home Medications Medication Instructions Recorded Confirmed nadolol 20 mg tablet 1 tab PO DAILY 03/02/21 05/05/22 spironolactone 50 mg tablet 1 tab PO DAILY 11/25/21 05/05/22 albuterol sulfate 90 mcg/actuation 90 mcg inhalation Q4H PRN 04/14/22 05/05/22 aerosol inhaler Shortness Of Breath Or Wheezing buspirone 10 mg tablet 1 tab PO BID 04/14/22 05/05/22 clonidine HCl 0.1 mg tablet 1 tab PO BID 04/14/22 05/05/22 rifaximin 550 mg tablet (Xifaxan) 1 tab PO BID 04/14/22 05/05/22 venlafaxine 37.5 mg 1 cap PO DAILY 04/14/22 05/05/22 capsule,extended release 24 hr acetaminophen 500 mg tablet 1,000 mg PO Q6H PRN Pain 05/04/22 05/05/22 folic acid 1 mg tablet 1 tab PO DAILY 05/04/22 05/05/22 hydroxyzine HCl 25 mg tablet 25 mg PO BID PRN Anxiety 05/04/22 05/05/22 ibuprofen 200 mg tablet (Advil) 400 mg PO Q8H PRN Pain 05/04/22 05/05/22 magnesium oxide 400 mg (241.3 mg 1 tab PO DAILY 05/04/22 05/05/22 magnesium) tablet multivitamin with folic acid 400 1 tab PO DAILY 05/04/22 05/05/22 mcg tablet (Daily-Nguyen (with folic acid)) Previous Rx's Medication Instructions Recorded naltrexone 50 mg tablet 1 tab PO DAILY #30 tabs 04/17/22 pantoprazole 40 mg tablet,delayed 40 mg PO BID #60 tabs 04/17/22 release thiamine HCl (vitamin B1) 100 mg 100 mg PO DAILY #30 tabs 04/17/22 tablet <GABE Clay - Last Filed: 06/12/22 14:13> Allergies/Adverse Reactions: Allergies Allergy/AdvReac Type Severity Reaction Status Date / Time Penicillins Allergy Mild Rash Verified 04/14/22 19:46 levofloxacin [From Levaquin] AdvReac Severe Difficulty Verified 04/15/22 11:40 Breathing peanut AdvReac Severe Anaphylaxis Verified 05/04/22 00:26 Peanut Butter AdvReac Severe Anaphylaxis Verified 04/15/22 11:40 Sulfa (Sulfonamide AdvReac Severe Difficulty Verified 04/15/22 11:40 Antibiotics) Breathing <GABE Clay - Last Filed: 06/12/22 14:13> Review of Systems Review of Systems: Pertinent positives and negatives as stated in HPI <Soo Ruelas MD - Last Filed: 06/12/22 18:48> PMFSH Past Medical History Source: nursing notes reviewed <Soo Ruelas MD - Last Filed: 06/12/22 18:48> Medical History: Medical History Alcohol abuse with withdrawal Alcohol use disorder, severe, dependence Alcoholic cirrhosis of liver Anxiety Cirrhosis of liver Depression Hypertension MDD (major depressive disorder), recurrent episode, moderate <GABE Clay - Last Filed: 06/12/22 14:13> Surgical History: Surgical History H/O foot surgery <GABE Clay - Last Filed: 06/12/22 14:13> Family History Family History: Family History Mother Pancreatic cancer <GABE Clay - Last Filed: 06/12/22 14:13> Social History Social History: Social History Household Members: Other Household Members Other:: boyfriend Housing: Apartment Do you presently have visiting nurse or other home services: No Alcohol intake: current Alcohol intake frequency: 3 or more drinks per day Alcohol type: hard liquor Patient Tobacco Use Status: Former Tobacco user Smoked in Last 30 Days: No Use of substances other than those prescribed or required for medical reasons: No Substance Use Type: Marijuana Advance Directives: Yes Advance Directives on File: Yes Advance Directives Date on File: 03/11/21 service: No Current occupational status: unemployed <GABE Clay - Last Filed: 06/12/22 14:13> Physical Exam Vital Signs: Vital Signs: Last Vital Signs Temp 98.3 F 06/12/22 17:46 Pulse 102 H 06/12/22 17:46 Resp 16 06/12/22 17:46 BP 124/70 06/12/22 17:46 Pulse Ox 94 06/12/22 17:46 O2 Del Method Room Air 06/12/22 17:46 O2 Flow Rate 1.5 06/12/22 16:30 Oxygen Flow Rate 1 06/12/22 14:07 BMI result Body Mass Index 29.2 <GABE Clay - Last Filed: 06/12/22 14:13> Vital Signs: Last Vital Signs Temp 98.3 F 06/12/22 17:46 Pulse 102 H 06/12/22 17:46 Resp 16 06/12/22 17:46 BP 124/70 06/12/22 17:46 Pulse Ox 94 06/12/22 17:46 O2 Del Method Room Air 06/12/22 17:46 O2 Flow Rate 1.5 06/12/22 16:30 Oxygen Flow Rate 1 06/12/22 14:07 BMI result Body Mass Index 29.2 VITAL SIGNS: Reviewed. GENERAL: Well developed, well nourished, in no acute distress, smells like alcohol. HEAD: Normocephalic/atraumatic EYES: PERRLA, EOMI EARS: Ext canals without abnormality NOSE: Nares patent bilateral OROPHARYNX: no oral lesions noted, posterior pharynx clear NECK: Supple, no adenopathy LUNGS: Coarse rhonchi expiratory wheeze no tachypnea. SpO2<94> on room air CARDIOVASCULAR: Regular rate and rhythm without noted murmurs, no JVD but bilateral lower extremity edema. ABDOMEN: Soft, non-tender, non-distended with bowel sounds. MUSCULOSKELETAL: No tenderness, deformities, or effusions noted on gross inspection. EXTREMITIES: No cyanosis, clubbing or edema. SKIN: Inspection of the skin reveals no rashes NEUROLOGIC: Alert and oriented x 4. Strength and sensation to light touch were grossly intact x 4. <Soo Ruelas MD - Last Filed: 06/12/22 18:48> Course Course Course Narrative: RME - 57 yo homeless female with history of COPD, ETOH abuse, hx alcoholic hepatits, QT prolongation, hx GI bleeding who presents to the ER from [facility] for evaluation of SOB that started last night. She has an increased cough and phlegm production. Feels like an elephant is sitting on her ribcage - that started when she woke up and couldn't breath today. Wheezey and tachycardic in triage. To go back to treatment room now - labs, CXR, EKG ordered. <GABE Clay - Last Filed: 06/12/22 14:13> Medications Administered Discontinued Medications Generic Name Dose Route Start Last Admin Trade Name Freq PRN Reason Stop Dose Admin Albuterol Sulfate 10 mg/ 0 mg 06/12/22 14:43 06/12/22 15:05 Ipratropium [place] 0.5 mg INHALE 06/12/22 14:44 10 each ONCE ONE Administration Furosemide 40 mg 06/12/22 15:23 06/12/22 16:26 Furosemide 100 Mg/10 Ml Vial IVPUSH 06/12/22 15:24 40 mg ONCE ONE Administration Protocol <GABE Clay - Last Filed: 06/12/22 14:13> Medications Administered Discontinued Medications Generic Name Dose Route Start Last Admin Trade Name Freq PRN Reason Stop Dose Admin Albuterol Sulfate 10 mg/ 0 mg 06/12/22 14:43 06/12/22 15:05 Ipratropium [place] 0.5 mg INHALE 06/12/22 14:44 10 each ONCE ONE Administration Furosemide 40 mg 06/12/22 15:23 06/12/22 16:26 Furosemide 100 Mg/10 Ml Vial IVPUSH 06/12/22 15:24 40 mg ONCE ONE Administration Protocol <Soo Ruelas MD - Last Filed: 06/12/22 18:48> Medical Decision Making Medical Decision Making [facility] Narrative: 1528: 57-year-old female with history and clinical presentation suggestive of chronic lung disease, alcohol intoxication as well as alcohol use disorder. I have reviewed all investigations and it appears that patient has mild CHF with likely exacerbation of underlying chronic lung disease, she also has a UTI for which she received antibiotics and does not meet criteria for sepsis fluids. In addition, patient is in alcohol withdrawals and was started on a phenobarb protocol. <Soo Ruelas MD - Last Filed: 06/12/22 18:48> Differential Diagnosis Please see the discussion above <Soo Ruelas MD - Last Filed: 06/12/22 18:48> Consult Healthcare Provider Management of the patient was discussed with: Hospitalist <Soo Ruelas MD - Last Filed: 06/12/22 18:48> 1820: I discussed the case with the inpatient hospitalist who accepts admission. <Soo Ruelas MD - Last Filed: 06/12/22 18:48> Lab Data Please see the discussion above <Soo Ruelas MD - Last Filed: 06/12/22 18:48> Result Diagrams: 06/12/22 14:25 06/12/22 14:25 <GABE Clay - Last Filed: 06/12/22 14:13> Labs: Lab Results 06/12/22 06/12/22 06/12/22 Range/Units 14:24 14:25 14:25 WBC 4.6 L (4.8-10.8) X10*3/uL RBC 3.89 L (4.20-5.50) X10*6/uL Hgb 8.7 L (12.0-16.0) g/dl Hct 30.2 L (37.0-47.0) % MCV 77.6 L (80.0-98.0) fL MCH 22.4 L (27.0-33.0) pg MCHC 28.8 L (31.0-35.0) g/dl RDW 19.7 H (11.0-16.0) % Plt Count 168 D (160-400) X10*3/uL MPV 10.1 (9.4-12.3) fL Immature Gran % (Auto) 0.4 (0.0-0.4) % Neut % (Auto) 50.0 (45-73) % Lymph % (Auto) 28.7 (20-40) % [place] % (Auto) 12.0 H (2-11) % Eos % (Auto) 7.2 H (0-4) % Baso % (Auto) 1.7 (0-2) % Lymph # (Auto) 1.3 (1.2-4.9) X10*3/uL [place] # (Auto) 0.6 (0.1-1.2) X10*3/uL Eos # (Auto) 0.3 (0.0-0.4) X10*3/uL Baso # (Auto) 0.1 (0.0-0.2) X10*3/uL Abs Immat Gran (auto) 0.02 (0.00-0.03) X10*3/uL Absolute Neuts (auto) 2.3 (2.0-8.3) x10*3/uL Absolute Nucleated RBC 0.000 (0.0-0.012) X10*3/uL Nucleated RBC % (auto) 0.0 (0.0-0.2) /100WBC VBG pH (7.32-7.43) VBG pCO2 mmHg VBG pO2 mmHg VBG HCO3 (22-26) mmol/L VBG O2 Saturation % VBG Base Excess mmol/L Sodium 150 H (135-145) mmol/L Potassium 3.6 (3.3-5.1) mmol/L Chloride 109 H (96-108) mmol/L Carbon Dioxide 35 H (22-29) mmol/L Anion Gap 10 L (12-20) BUN 4 L (9-16) mg/dL Creatinine 0.62 (0.5-1.4) mg/dL Estim Creat Clear Calc 84.1 Estimated GFR > 60 Random Glucose 135 H (60-115) mg/dL Lactic Acid 1.9 (0.5-2.0) mmol/L Calcium 7.7 L D (8.4-10.2) mg/dL Magnesium 1.6 (1.6-2.6) mg/dL Total Bilirubin 0.8 (0.0-1.0) mg/dL Direct Bilirubin 0.4 (0.0-0.5) mg/dL AST 52 H (5-31) U/L ALT 18 (0-31) U/L Alkaline Phosphatase 90 (39-117) U/L Troponin I High Sens (<3.5-17.0) ng/L B-Natriuretic Peptide (<100) pg/mL Total Protein 6.1 L (6.5-8.0) g/dL Albumin 3.1 L (3.5-5.0) g/dL Urine Color Urine Appearance Urine pH (5.0-9.0) Ur Specific [place] (1.005-1.025) Urine Protein (Neg-Trace) mg/dL Urine Glucose (UA) (Negative) mg/dL Urine Ketones (Negative) mg/dL Urine Blood (Negative) Urine Nitrite (Negative) Ur Leukocyte Esterase (Negative) Urine RBC (0-2) /HPF Urine WBC (0-5) /HPF Ur Squamous Epith Cells (0-2) /HPF Calcium Oxalate Crystal Urine Bacteria (None Seen) Hyaline Casts (0-2) /LPF Ethyl Alcohol 407 H* mg/dL COVID-19 (SIMONE) (Negative) COVID-19 Clin Com 06/12/22 06/12/22 06/12/22 Range/Units 14:25 14:25 14:25 WBC (4.8-10.8) X10*3/uL RBC (4.20-5.50) X10*6/uL Hgb (12.0-16.0) g/dl Hct (37.0-47.0) % MCV (80.0-98.0) fL MCH (27.0-33.0) pg MCHC (31.0-35.0) g/dl RDW (11.0-16.0) % Plt Count (160-400) X10*3/uL MPV (9.4-12.3) fL Immature Gran % (Auto) (0.0-0.4) % Neut % (Auto) (45-73) % Lymph % (Auto) (20-40) % [place] % (Auto) (2-11) % Eos % (Auto) (0-4) % Baso % (Auto) (0-2) % Lymph # (Auto) (1.2-4.9) X10*3/uL [place] # (Auto) (0.1-1.2) X10*3/uL Eos # (Auto) (0.0-0.4) X10*3/uL Baso # (Auto) (0.0-0.2) X10*3/uL Abs Immat Gran (auto) (0.00-0.03) X10*3/uL Absolute Neuts (auto) (2.0-8.3) x10*3/uL Absolute Nucleated RBC (0.0-0.012) X10*3/uL Nucleated RBC % (auto) (0.0-0.2) /100WBC VBG pH (7.32-7.43) VBG pCO2 mmHg VBG pO2 mmHg VBG HCO3 (22-26) mmol/L VBG O2 Saturation % VBG Base Excess mmol/L Sodium (135-145) mmol/L Potassium (3.3-5.1) mmol/L Chloride (96-108) mmol/L Carbon Dioxide (22-29) mmol/L Anion Gap (12-20) BUN (9-16) mg/dL Creatinine (0.5-1.4) mg/dL Estim Creat Clear Calc Estimated GFR Random Glucose (60-115) mg/dL Lactic Acid (0.5-2.0) mmol/L Calcium (8.4-10.2) mg/dL Magnesium (1.6-2.6) mg/dL Total Bilirubin (0.0-1.0) mg/dL Direct Bilirubin (0.0-0.5) mg/dL AST (5-31) U/L ALT (0-31) U/L Alkaline Phosphatase (39-117) U/L Troponin I High Sens < 2.7 D (<3.5-17.0) ng/L B-Natriuretic Peptide 173 H (<100) pg/mL Total Protein (6.5-8.0) g/dL Albumin (3.5-5.0) g/dL Urine Color Urine Appearance Urine pH (5.0-9.0) Ur Specific [place] (1.005-1.025) Urine Protein (Neg-Trace) mg/dL Urine Glucose (UA) (Negative) mg/dL Urine Ketones (Negative) mg/dL Urine Blood (Negative) Urine Nitrite (Negative) Ur Leukocyte Esterase (Negative) Urine RBC (0-2) /HPF Urine WBC (0-5) /HPF Ur Squamous Epith Cells (0-2) /HPF Calcium Oxalate Crystal Urine Bacteria (None Seen) Hyaline Casts (0-2) /LPF Ethyl Alcohol mg/dL COVID-19 (SIMONE) Negative (Negative) COVID-19 Clin Com See Note 06/12/22 06/12/22 Range/Units 15:44 16:53 WBC (4.8-10.8) X10*3/uL RBC (4.20-5.50) X10*6/uL Hgb (12.0-16.0) g/dl Hct (37.0-47.0) % MCV (80.0-98.0) fL MCH (27.0-33.0) pg MCHC (31.0-35.0) g/dl RDW (11.0-16.0) % Plt Count (160-400) X10*3/uL MPV (9.4-12.3) fL Immature Gran % (Auto) (0.0-0.4) % Neut % (Auto) (45-73) % Lymph % (Auto) (20-40) % [place] % (Auto) (2-11) % Eos % (Auto) (0-4) % Baso % (Auto) (0-2) % Lymph # (Auto) (1.2-4.9) X10*3/uL [place] # (Auto) (0.1-1.2) X10*3/uL Eos # (Auto) (0.0-0.4) X10*3/uL Baso # (Auto) (0.0-0.2) X10*3/uL Abs Immat Gran (auto) (0.00-0.03) X10*3/uL Absolute Neuts (auto) (2.0-8.3) x10*3/uL Absolute Nucleated RBC (0.0-0.012) X10*3/uL Nucleated RBC % (auto) (0.0-0.2) /100WBC VBG pH 7.42 (7.32-7.43) VBG pCO2 58 mmHg VBG pO2 54 mmHg VBG HCO3 38 H (22-26) mmol/L VBG O2 Saturation 75.0 % VBG Base Excess 12.1 mmol/L Sodium (135-145) mmol/L Potassium (3.3-5.1) mmol/L Chloride (96-108) mmol/L Carbon Dioxide (22-29) mmol/L Anion Gap (12-20) BUN (9-16) mg/dL Creatinine (0.5-1.4) mg/dL Estim Creat Clear Calc Estimated GFR Random Glucose (60-115) mg/dL Lactic Acid (0.5-2.0) mmol/L Calcium (8.4-10.2) mg/dL Magnesium (1.6-2.6) mg/dL Total Bilirubin (0.0-1.0) mg/dL Direct Bilirubin (0.0-0.5) mg/dL AST (5-31) U/L ALT (0-31) U/L Alkaline Phosphatase (39-117) U/L Troponin I High Sens (<3.5-17.0) ng/L B-Natriuretic Peptide (<100) pg/mL Total Protein (6.5-8.0) g/dL Albumin (3.5-5.0) g/dL Urine Color Yellow Urine Appearance Cloudy Urine pH 6.0 (5.0-9.0) Ur Specific [place] 1.015 (1.005-1.025) Urine Protein Negative (Neg-Trace) mg/dL Urine Glucose (UA) Negative (Negative) mg/dL Urine Ketones Negative (Negative) mg/dL Urine Blood Negative (Negative) Urine Nitrite Positive H (Negative) Ur Leukocyte Esterase Moderate (2+) H (Negative) Urine RBC 0-2 (0-2) /HPF Urine WBC 21-50 H (0-5) /HPF Ur Squamous Epith Cells 6-10 (0-2) /HPF Calcium Oxalate Crystal Present Urine Bacteria 4+ (None Seen) Hyaline Casts 0-2 (0-2) /LPF Ethyl Alcohol mg/dL COVID-19 (SIMONE) (Negative) COVID-19 Clin Com <GABE Clya - Last Filed: 06/12/22 14:13> Lab Results 06/12/22 06/12/22 06/12/22 Range/Units 14:24 14:25 14:25 WBC 4.6 L (4.8-10.8) X10*3/uL RBC 3.89 L (4.20-5.50) X10*6/uL Hgb 8.7 L (12.0-16.0) g/dl Hct 30.2 L (37.0-47.0) % MCV 77.6 L (80.0-98.0) fL MCH 22.4 L (27.0-33.0) pg MCHC 28.8 L (31.0-35.0) g/dl RDW 19.7 H (11.0-16.0) % Plt Count 168 D (160-400) X10*3/uL MPV 10.1 (9.4-12.3) fL Immature Gran % (Auto) 0.4 (0.0-0.4) % Neut % (Auto) 50.0 (45-73) % Lymph % (Auto) 28.7 (20-40) % [place] % (Auto) 12.0 H (2-11) % Eos % (Auto) 7.2 H (0-4) % Baso % (Auto) 1.7 (0-2) % Lymph # (Auto) 1.3 (1.2-4.9) X10*3/uL [place] # (Auto) 0.6 (0.1-1.2) X10*3/uL Eos # (Auto) 0.3 (0.0-0.4) X10*3/uL Baso # (Auto) 0.1 (0.0-0.2) X10*3/uL Abs Immat Gran (auto) 0.02 (0.00-0.03) X10*3/uL Absolute Neuts (auto) 2.3 (2.0-8.3) x10*3/uL Absolute Nucleated RBC 0.000 (0.0-0.012) X10*3/uL Nucleated RBC % (auto) 0.0 (0.0-0.2) /100WBC VBG pH (7.32-7.43) VBG pCO2 mmHg VBG pO2 mmHg VBG HCO3 (22-26) mmol/L VBG O2 Saturation % VBG Base Excess mmol/L Sodium 150 H (135-145) mmol/L Potassium 3.6 (3.3-5.1) mmol/L Chloride 109 H (96-108) mmol/L Carbon Dioxide 35 H (22-29) mmol/L Anion Gap 10 L (12-20) BUN 4 L (9-16) mg/dL Creatinine 0.62 (0.5-1.4) mg/dL Estim Creat Clear Calc 84.1 Estimated GFR > 60 Random Glucose 135 H (60-115) mg/dL Lactic Acid 1.9 (0.5-2.0) mmol/L Calcium 7.7 L D (8.4-10.2) mg/dL Magnesium 1.6 (1.6-2.6) mg/dL Total Bilirubin 0.8 (0.0-1.0) mg/dL Direct Bilirubin 0.4 (0.0-0.5) mg/dL AST 52 H (5-31) U/L ALT 18 (0-31) U/L Alkaline Phosphatase 90 (39-117) U/L Troponin I High Sens (<3.5-17.0) ng/L B-Natriuretic Peptide (<100) pg/mL Total Protein 6.1 L (6.5-8.0) g/dL Albumin 3.1 L (3.5-5.0) g/dL Urine Color Urine Appearance Urine pH (5.0-9.0) Ur Specific [place] (1.005-1.025) Urine Protein (Neg-Trace) mg/dL Urine Glucose (UA) (Negative) mg/dL Urine Ketones (Negative) mg/dL Urine Blood (Negative) Urine Nitrite (Negative) Ur Leukocyte Esterase (Negative) Urine RBC (0-2) /HPF Urine WBC (0-5) /HPF Ur Squamous Epith Cells (0-2) /HPF Calcium Oxalate Crystal Urine Bacteria (None Seen) Hyaline Casts (0-2) /LPF Ethyl Alcohol 407 H* mg/dL COVID-19 (SIMONE) (Negative) COVID-19 Clin Com 06/12/22 06/12/22 06/12/22 Range/Units 14:25 14:25 14:25 WBC (4.8-10.8) X10*3/uL RBC (4.20-5.50) X10*6/uL Hgb (12.0-16.0) g/dl Hct (37.0-47.0) % MCV (80.0-98.0) fL MCH (27.0-33.0) pg MCHC (31.0-35.0) g/dl RDW (11.0-16.0) % Plt Count (160-400) X10*3/uL MPV (9.4-12.3) fL Immature Gran % (Auto) (0.0-0.4) % Neut % (Auto) (45-73) % Lymph % (Auto) (20-40) % [place] % (Auto) (2-11) % Eos % (Auto) (0-4) % Baso % (Auto) (0-2) % Lymph # (Auto) (1.2-4.9) X10*3/uL [place] # (Auto) (0.1-1.2) X10*3/uL Eos # (Auto) (0.0-0.4) X10*3/uL Baso # (Auto) (0.0-0.2) X10*3/uL Abs Immat Gran (auto) (0.00-0.03) X10*3/uL Absolute Neuts (auto) (2.0-8.3) x10*3/uL Absolute Nucleated RBC (0.0-0.012) X10*3/uL Nucleated RBC % (auto) (0.0-0.2) /100WBC VBG pH (7.32-7.43) VBG pCO2 mmHg VBG pO2 mmHg VBG HCO3 (22-26) mmol/L VBG O2 Saturation % VBG Base Excess mmol/L Sodium (135-145) mmol/L Potassium (3.3-5.1) mmol/L Chloride (96-108) mmol/L Carbon Dioxide (22-29) mmol/L Anion Gap (12-20) BUN (9-16) mg/dL Creatinine (0.5-1.4) mg/dL Estim Creat Clear Calc Estimated GFR Random Glucose (60-115) mg/dL Lactic Acid (0.5-2.0) mmol/L Calcium (8.4-10.2) mg/dL Magnesium (1.6-2.6) mg/dL Total Bilirubin (0.0-1.0) mg/dL Direct Bilirubin (0.0-0.5) mg/dL AST (5-31) U/L ALT (0-31) U/L Alkaline Phosphatase (39-117) U/L Troponin I High Sens < 2.7 D (<3.5-17.0) ng/L B-Natriuretic Peptide 173 H (<100) pg/mL Total Protein (6.5-8.0) g/dL Albumin (3.5-5.0) g/dL Urine Color Urine Appearance Urine pH (5.0-9.0) Ur Specific [place] (1.005-1.025) Urine Protein (Neg-Trace) mg/dL Urine Glucose (UA) (Negative) mg/dL Urine Ketones (Negative) mg/dL Urine Blood (Negative) Urine Nitrite (Negative) Ur Leukocyte Esterase (Negative) Urine RBC (0-2) /HPF Urine WBC (0-5) /HPF Ur Squamous Epith Cells (0-2) /HPF Calcium Oxalate Crystal Urine Bacteria (None Seen) Hyaline Casts (0-2) /LPF Ethyl Alcohol mg/dL COVID-19 (SIMONE) Negative (Negative) COVID-19 Clin Com See Note 06/12/22 06/12/22 Range/Units 15:44 16:53 WBC (4.8-10.8) X10*3/uL RBC (4.20-5.50) X10*6/uL Hgb (12.0-16.0) g/dl Hct (37.0-47.0) % MCV (80.0-98.0) fL MCH (27.0-33.0) pg MCHC (31.0-35.0) g/dl RDW (11.0-16.0) % Plt Count (160-400) X10*3/uL MPV (9.4-12.3) fL Immature Gran % (Auto) (0.0-0.4) % Neut % (Auto) (45-73) % Lymph % (Auto) (20-40) % [place] % (Auto) (2-11) % Eos % (Auto) (0-4) % Baso % (Auto) (0-2) % Lymph # (Auto) (1.2-4.9) X10*3/uL [place] # (Auto) (0.1-1.2) X10*3/uL Eos # (Auto) (0.0-0.4) X10*3/uL Baso # (Auto) (0.0-0.2) X10*3/uL Abs Immat Gran (auto) (0.00-0.03) X10*3/uL Absolute Neuts (auto) (2.0-8.3) x10*3/uL Absolute Nucleated RBC (0.0-0.012) X10*3/uL Nucleated RBC % (auto) (0.0-0.2) /100WBC VBG pH 7.42 (7.32-7.43) VBG pCO2 58 mmHg VBG pO2 54 mmHg VBG HCO3 38 H (22-26) mmol/L VBG O2 Saturation 75.0 % VBG Base Excess 12.1 mmol/L Sodium (135-145) mmol/L Potassium (3.3-5.1) mmol/L Chloride (96-108) mmol/L Carbon Dioxide (22-29) mmol/L Anion Gap (12-20) BUN (9-16) mg/dL Creatinine (0.5-1.4) mg/dL Estim Creat Clear Calc Estimated GFR Random Glucose (60-115) mg/dL Lactic Acid (0.5-2.0) mmol/L Calcium (8.4-10.2) mg/dL Magnesium (1.6-2.6) mg/dL Total Bilirubin (0.0-1.0) mg/dL Direct Bilirubin (0.0-0.5) mg/dL AST (5-31) U/L ALT (0-31) U/L Alkaline Phosphatase (39-117) U/L Troponin I High Sens (<3.5-17.0) ng/L B-Natriuretic Peptide (<100) pg/mL Total Protein (6.5-8.0) g/dL Albumin (3.5-5.0) g/dL Urine Color Yellow Urine Appearance Cloudy Urine pH 6.0 (5.0-9.0) Ur Specific [place] 1.015 (1.005-1.025) Urine Protein Negative (Neg-Trace) mg/dL Urine Glucose (UA) Negative (Negative) mg/dL Urine Ketones Negative (Negative) mg/dL Urine Blood Negative (Negative) Urine Nitrite Positive H (Negative) Ur Leukocyte Esterase Moderate (2+) H (Negative) Urine RBC 0-2 (0-2) /HPF Urine WBC 21-50 H (0-5) /HPF Ur Squamous Epith Cells 6-10 (0-2) /HPF Calcium Oxalate Crystal Present Urine Bacteria 4+ (None Seen) Hyaline Casts 0-2 (0-2) /LPF Ethyl Alcohol mg/dL COVID-19 (SIMONE) (Negative) COVID-19 Clin Com <Soo Ruelas MD - Last Filed: 06/12/22 18:48> Independent Interpretation I performed an independent interpretation of an: EKG <Soo Ruelas MD - Last Filed: 06/12/22 18:48> Interpretation: Normal sinus rhythm, HR-95, no STEMI, NC/QRS/QTC is within normal limits. <Soo Ruelas MD - Last Filed: 06/12/22 18:48> Radiology Impression Radiologist Impression: My interpretation is in agreement with radiology's impression of the imaging studies. <Soo Ruelas MD - Last Filed: 06/12/22 18:48> External Record Review External record reviewed: Outpatient record and Prior outpatient labs <Soo Ruelas MD - Last Filed: 06/12/22 18:48> Chronic Conditions Patient?s care impacted by: Diabetes and Hypertension <Soo Ruelas MD - Last Filed: 06/12/22 18:48> Discharge Plan Discharge Clinical Impression: Alcohol intoxication, Alcohol withdrawal, UTI (urinary tract infection), CHF exacerbation, COPD (chronic obstructive pulmonary disease) <GABE Clay - Last Filed: 06/12/22 14:13> Patient Disposition: Admitted As Inpatient <GABE Clay - Last Filed: 06/12/22 14:13>
--- NOTE | 2022-06-12 14:06 | ECG_ITS ---
Test Reason : sob Blood Pressure : / mmHG Vent. Rate : 095 BPM Atrial Rate : 095 BPM P-R Int : 140 ms QRS Dur : 080 ms QT Int : 362 ms P-R-T Axes : 030 021 035 degrees QTc Int : 454 ms Normal sinus rhythm Septal infarct (cited on or before 04-MAY-2022) Abnormal ECG When compared with ECG of 04-MAY-2022 00:10, Questionable change in initial forces of Septal leads Referred By: Urszula Grant Electronically Signed By:Dl Root
[2022-06-12 14:07] VITALS: BP 120/56; BP 150/70; PULSE 100; RESP 20; TEMP 36.9; O2SAT 97; BMI 29.2
[2022-06-12 14:33] LABS: MANUAL DIFF FLAG NO
[2022-06-12 14:36] LABS: Basophils Absolute Auto 0.1 X10*3/uL (0.0-0.2); Basophils Percent Auto 1.7 % (0-2); Eosinophils Absolute Auto 0.3 X10*3/uL (0.0-0.4); Eosinophils Percent Auto 7.2 % (0-4); Hematocrit 30.2 % (37.0-47.0); Hemoglobin 8.7 g/dl (12.0-16.0); Imm Gran Abs Auto 0.02 X10*3/uL (0.00-0.03); Imm Gran Pct Auto 0.4 % (0.0-0.4); Lymphocytes Absolute Auto 1.3 X10*3/uL (1.2-4.9); Lymphocytes Percent Auto 28.7 % (20-40); Mean Corpuscular HGB Conc 28.8 g/dl (31.0-35.0); Mean Corpuscular Hemoglobin 22.4 pg (27.0-33.0); Mean Corpuscular Volume 77.6 fL (80.0-98.0); Mean Platelet Volume 10.1 fL (9.4-12.3); Monocytes Absolute Auto 0.6 X10*3/uL (0.1-1.2); Neutrophils Absolute Auto 2.3 x10*3/uL (2.0-8.3); Platelet Count 168 X10*3/uL (160-400); Red Blood Count 3.89 X10*6/uL (4.20-5.50); Red Cell Distribution Width 19.7 % (11.0-16.0); White Blood Count 4.6 X10*3/uL (4.8-10.8)
[2022-06-12 14:45] LABS: Lactic Acid 1.9 mmol/L (0.5-2.0)
[2022-06-12 14:51] LABS: Alanine Aminotransferase 18 U/L (0-31); Albumin Level 3.1 g/dL (3.5-5.0); Alkaline Phosphatase 90 U/L (39-117); Anion Gap 10 (12-20); Aspartate Amino Transferase 52 U/L (5-31); Bilirubin Direct 0.4 mg/dL (0.0-0.5); Bilirubin Total 0.8 mg/dL (0.0-1.0); Blood Urea Nitrogen 4 mg/dL (9-16); Calcium 7.7 mg/dL (8.4-10.2); Carbon Dioxide 35 mmol/L (22-29); Chloride 109 mmol/L (96-108); Creatinine Clr Calc Pharmacy 84.1; Estimated Glomerular Filt Rate > 60; Glucose Random 135 mg/dL (60-115); Magnesium 1.6 mg/dL (1.6-2.6); Potassium 3.6 mmol/L (3.3-5.1); Sodium 150 mmol/L (135-145); Total Protein 6.1 g/dL (6.5-8.0)
[2022-06-12 14:55] LABS: B Type Natriuretic Peptide 173 pg/mL (<100)
[2022-06-12 14:56] LABS: COVID-19 Test Negative (Negative); IDNOW Serial# BCCEAD1C
[2022-06-12 14:57] LABS: Troponin-I High Sensitivity < 2.7 ng/L (<3.5-17.0)
[2022-06-12 15:00] VITALS: BP 121/61; PULSE 98; RESP 16; O2SAT 94
[2022-06-12 15:02] LABS: Ethanol 407 mg/dL
[2022-06-12 15:08] VITALS: PULSE 100; RESP 20; O2SAT 94
[2022-06-12 15:51] LABS: VBG Base Excess 12.1 mmol/L; VBG HCO3 38 mmol/L (22-26); VBG pCO2 58 mmHg; VBG pH 7.42 (7.32-7.43); VBG pO2 54 mmHg
[2022-06-12 15:52] LABS: Venous Blood Gas Refer to POC result
[2022-06-12] MEDS: Furosemide 100 MG/10 ML VIAL 40 MG IVPUSH (16:26)
[2022-06-12 16:30] VITALS: BP 129/61; PULSE 108; RESP 20; O2SAT 93
[2022-06-12 17:02] LABS: Appearance Urine Cloudy; Color Urine Yellow; Glucose Urine UA Negative (Negative); Leukocyte Esterase Urine Moderate (2+) (Negative); Nitrite Urine Positive (Negative); Specific Gravity - Urine 1.015 (1.005-1.025); UMIC TRIGGER UACC YES; Urine Blood Negative (Negative); Urine Ketones Negative (Negative); Urine Protein Negative (Neg-Trace)
[2022-06-12 17:12] LABS: Bacteria Urine 4+ (None Seen); Calcium Oxalate Crystals Urine Present; Hyaline Casts Urine 0-2 /LPF (0-2); RBC Urine 0-2 /HPF (0-2); UACC Culture Trigger YES; WBC Urine 21-50 /HPF (0-5)
[2022-06-12 17:46] VITALS: BP 124/70; PULSE 102; RESP 16; TEMP 36.8; O2SAT 94
--- NOTE | 2022-06-12 19:49 | PM.IMHP ---
History of Present Illness Date of Service: 06/12/22 Attending physician on admission: Cordell Jones Chief Complaint: SOB Pt is a 57-year-old female with a PMH significant for?alcohol use disorder with alcoholic cirrhosis, mood disorder, HTN, COPD, and history of GI bleeding who presents to the ED with?shortness of breath and withdrawing from alcohol. Patient states that her symptoms began a few weeks ago when she developed shortness of breath and cough. Has been having a central chest tightness with inspiration that radiates to the back. Patient has been noncompliant with her home medications, including her inhalers for COPD, for the past 6 months. Patient notes that she cannot use inhalers because they make her vomit. Pt has been drinking around 1 pt peppermint schnapps daily with her last drink yesterday evening. Has had tremors since earlier today. Patient states she has has a history of withdrawal seizures, but never has had auditory or visual hallucinations. Patient has been lightheaded, dizzy, and not eating much at all. Denies fever but has had chills, and been depressed and anxious lately. Also complains of nausea and vomiting clear liquid. Denies hematemesis. Patient states she has had chronic bloody diarrhea on and off the past couple of years, which has been particularly bad the past few days. Complains also of right sided abdominal pain. Patient also endorses dysuria. In the ED patient was afebrile, tachycardic up to 108, satting at 95% on RA. Labs were significant for WBC of 3.6, H&H of 8.7/30.2 (at baseline), sodium of 150, carbon dioxide 35, magnesium of 1.6, BNP 173. UA positive for UTI. Ethyl alcohol level of 407. VBG with HC03 of 38. CXR showed no acute cardiopulmonary process. EKG demonstrated normal sinus rhythm with no evidence of ST elevations or depressions. Pt was treated with DuoNebs, furosemide, ceftriaxone, Solu-Medrol, and started on phenobarb protocol. Pt will be admitted to the hospital for treatment and further evaluation of acute COPD exacerbation, UTI, and alcohol withdrawal. Review of Systems Review of Systems: Upper extremity tremors SOB Right-sided abdominal pain Lightheadedness, dizziness Nausea, vomiting Chest tightness with inspiration Dysuria Bloody diarrhea Yes all other systems are reviewed and are negative [facility] Medical History Alcohol abuse with withdrawal Alcohol use disorder, severe, dependence Alcoholic cirrhosis of liver Anxiety Cirrhosis of liver Depression Hypertension MDD (major depressive disorder), recurrent episode, moderate Family History Mother Pancreatic cancer Surgical History H/O foot surgery Social History Household Members: Significant Other Household Members Other:: boyfriend Housing: Homeless Do you presently have visiting nurse or other home services: No Alcohol intake: current Alcohol intake frequency: 3 or more drinks per day Alcohol type: hard liquor Patient Tobacco Use Status: Former Tobacco user Smoked in Last 30 Days: No Use of substances other than those prescribed or required for medical reasons: No Substance Use Type: Marijuana Currently Displaying Signs/Symptoms of Drug Intoxication Withdrawal: No Have you been hit, kicked, punched, or otherwise hurt by someone within the past year? If so, by whom?: No Do you feel safe in your current relationship?: Yes Is there a partner from a previous relationship who is making you feel unsafe now?: No Are you made to feel afraid or neglected: No Advance Directives: Yes Advance Directives on File: Yes Advance Directives Date on File: 03/11/21 Do you have thoughts of harming others: None Do you have a plan to hurt others: No Plan Recently lost weight without trying: No How much weight loss: Not applicable Eating poorly because of decreased appetite: No Nutrition screen score: 0 Patient : No : No service: No Current occupational status: unemployed Meds Allergies Allergy/AdvReac Type Severity Reaction Status Date / Time Penicillins Allergy Mild Rash Verified 04/14/22 19:46 levofloxacin [From Levaquin] AdvReac Severe Difficulty Verified 04/15/22 11:40 Breathing peanut AdvReac Severe Anaphylaxis Verified 05/04/22 00:26 Peanut Butter AdvReac Severe Anaphylaxis Verified 04/15/22 11:40 Sulfa (Sulfonamide AdvReac Severe Difficulty Verified 04/15/22 11:40 Antibiotics) Breathing Active Medications: Current Medications Pharmacy Consult (Consult Rx Etoh Phenob Im/Po) 1 each MISCELLANE ONCE PRN; Protocol PRN Reason: Consult order Phenobarbital (Phenobarbital 30 Mg Tablet) 30 mg PO BID [facility]; Protocol Stop: 06/14/22 21:01 Phenobarbital (Phenobarbital 15 Mg Tablet) 15 mg PO BID [facility]; Protocol Stop: 06/16/22 21:01 Phenobarbital (Phenobarbital 15 Mg Tablet) 15 mg PO DAILY [facility]; Protocol Stop: 06/18/22 09:01 Phenobarbital Sodium (Phenobarbital Sodium 130 Mg/Ml Vial Im Q3hx2) 140 mg IM Q3H [facility]; Protocol Stop: 06/13/22 00:01 Home Medications Medication Instructions Recorded Confirmed Last Taken Type multivitamin with folic acid 400 1 tab PO DAILY 06/12/22 06/12/22 Unknown History mcg tablet (Daily-Nguyen (with folic acid)) thiamine HCl (vitamin B1) 100 mg 100 mg PO DAILY 06/12/22 06/12/22 Unknown History tablet (Vitamin B-1) Physical Exam Vital Signs and Narrative: Vital Signs: Last Vital Signs Temp 98.3 F 06/12/22 17:46 Pulse 102 H 06/12/22 17:46 Resp 16 06/12/22 17:46 BP 124/70 06/12/22 17:46 Pulse Ox 94 06/12/22 17:46 O2 Del Method Room Air 06/12/22 17:46 O2 Flow Rate 1.5 06/12/22 16:30 Oxygen Flow Rate 1 06/12/22 14:07 BMI result Body Mass Index 29.2 Constitutional: Alert, uncomfortable, mildly tremulous, in no acute distress. Mental Status: Oriented to person, place and time. Eyes: Pupils are equal, round, and reactive to light. Ear, Nose, and Throat: Oropharynx clear, mucous membranes moist. Ears and nose without deformities. Trachea midline. Respiratory: Expiratory wheezing and rhonchi throughout. Cardiovascular: S1, S2 regular. No murmurs, rubs, or gallops. Gastrointestinal: Abdomen soft, non-distended, with diffuse moderate tenderness. Normal bowel sounds. Neurologic: Cranial nerves II-XII are grossly intact bilaterally. No focal neurological deficits. Moves all extremities spontaneously. Upper extremity tremors noted. No tongue fasciculations. Skin: Warm, dry, no diaphoresis. Musculoskeletal: No cyanosis or clubbing. Extremities: +1 pitting edema of lower legs bilaterally. Psychiatric: Normal mood and affect. Results Labs 06/12/22 14:25 06/12/22 14:25 Labs: Laboratory Results - last 24 hr 06/12/22 06/12/22 06/12/22 14:24 14:25 14:25 MCV 77.6 L MCH 22.4 L MCHC 28.8 L RDW 19.7 H Plt Count 168 D MPV 10.1 Immature Gran % (Auto) 0.4 Neut % (Auto) 50.0 Lymph % (Auto) 28.7 Roosevelt % (Auto) 12.0 H Eos % (Auto) 7.2 H Baso % (Auto) 1.7 Lymph # (Auto) 1.3 Roosevelt # (Auto) 0.6 Eos # (Auto) 0.3 Baso # (Auto) 0.1 Abs Immat Gran (auto) 0.02 Absolute Neuts (auto) 2.3 Absolute Nucleated RBC 0.000 Nucleated RBC % (auto) 0.0 VBG pH VBG pCO2 VBG pO2 VBG HCO3 VBG O2 Saturation VBG Base Excess Anion Gap 10 L Estim Creat Clear Calc 84.1 Estimated GFR > 60 Random Glucose 135 H Lactic Acid 1.9 Calcium 7.7 L D Magnesium 1.6 Total Bilirubin 0.8 Direct Bilirubin 0.4 AST 52 H ALT 18 Alkaline Phosphatase 90 Troponin I High Sens B-Natriuretic Peptide Total Protein 6.1 L Albumin 3.1 L Urine Color Urine Appearance Urine pH Ur Specific [place] Urine Protein Urine Glucose (UA) Urine Ketones Urine Blood Urine Nitrite Ur Leukocyte Esterase Urine RBC Urine WBC Ur Squamous Epith Cells Calcium Oxalate Crystal Urine Bacteria Hyaline Casts Ethyl Alcohol 407 H* COVID-19 (SIMONE) COVID-19 Clin Com 06/12/22 06/12/22 06/12/22 14:25 14:25 14:25 MCV MCH MCHC RDW Plt Count MPV Immature Gran % (Auto) Neut % (Auto) Lymph % (Auto) [place] % (Auto) Eos % (Auto) Baso % (Auto) Lymph # (Auto) Roosevelt # (Auto) Eos # (Auto) Baso # (Auto) Abs Immat Gran (auto) Absolute Neuts (auto) Absolute Nucleated RBC Nucleated RBC % (auto) VBG pH VBG pCO2 VBG pO2 VBG HCO3 VBG O2 Saturation VBG Base Excess Anion Gap Estim Creat Clear Calc Estimated GFR Random Glucose Lactic Acid Calcium Magnesium Total Bilirubin Direct Bilirubin AST ALT Alkaline Phosphatase Troponin I High Sens < 2.7 D B-Natriuretic Peptide 173 H Total Protein Albumin Urine Color Urine Appearance Urine pH Ur Specific [place] Urine Protein Urine Glucose (UA) Urine Ketones Urine Blood Urine Nitrite Ur Leukocyte Esterase Urine RBC Urine WBC Ur Squamous Epith Cells Calcium Oxalate Crystal Urine Bacteria Hyaline Casts Ethyl Alcohol COVID-19 (SIMONE) Negative COVID-19 Clin Com See Note 06/12/22 06/12/22 15:44 16:53 MCV MCH MCHC RDW Plt Count MPV Immature Gran % (Auto) Neut % (Auto) Lymph % (Auto) [place] % (Auto) Eos % (Auto) Baso % (Auto) Lymph # (Auto) [place] # (Auto) Eos # (Auto) Baso # (Auto) Abs Immat Gran (auto) Absolute Neuts (auto) Absolute Nucleated RBC Nucleated RBC % (auto) VBG pH 7.42 VBG pCO2 58 VBG pO2 54 VBG HCO3 38 H VBG O2 Saturation 75.0 VBG Base Excess 12.1 Anion Gap Estim Creat Clear Calc Estimated GFR Random Glucose Lactic Acid Calcium Magnesium Total Bilirubin Direct Bilirubin AST ALT Alkaline Phosphatase Troponin I High Sens B-Natriuretic Peptide Total Protein Albumin Urine Color Yellow Urine Appearance Cloudy Urine pH 6.0 Ur Specific [place] 1.015 Urine Protein Negative Urine Glucose (UA) Negative Urine Ketones Negative Urine Blood Negative Urine Nitrite Positive H Ur Leukocyte Esterase Moderate (2+) H Urine RBC 0-2 Urine WBC 21-50 H Ur Squamous Epith Cells 6-10 Calcium Oxalate Crystal Present Urine Bacteria 4+ Hyaline Casts 0-2 Ethyl Alcohol COVID-19 (SIMONE) COVID-19 Clin Com Imaging Radiologist's Impressions: Impressions Chest X-Ray 06/12/22 14:52 IMPRESSION: Unremarkable chest examination. Assessment and Plan (1) Alcohol withdrawal: Status: Acute (2) UTI (urinary tract infection): Status: Acute (3) COPD (chronic obstructive pulmonary disease): Status: Acute Plan Pt is a 57-year-old female with a PMH significant for?alcohol use disorder with alcoholic cirrhosis, mood disorder, HTN, COPD, and history of GI bleeding who presents to the ED with?shortness of breath and withdrawing from alcohol. Pt will be admitted to the hospital for treatment and further evaluation of acute COPD exacerbation, UTI, and alcohol withdrawal. Acute alcohol withdrawal Pt drinks 1 pint of peppermint schnapps daily, last drink yesterday night Patient with history of alcohol withdrawal seizures; has mild upper extremity tremors, no hallucinations Continue Phenobarb protocol Daily multivitamin, folic acid 1mg, Thiamine 100 mg daily IV Protonix bid Addiction medicine consult Follow lyhai, Mag, BMP CIWA scale Seizure protocols Admit to telemetry Acute COPD exacerbation Pt has been non-compliant with home inhalers for at least six months Not on supplemental O2, but with wheezing/rhonchi on exam Solu-Medrol 40mg IV q12hr DuoNebs q4hr UTI UA positive for nitrates, leukocyte esterase, WBC, bacteria Patient with dysuria Ceftriaxone 1g qd Bloody diarrhea/abdominal pain Pt complains of bloody diarrhea on and off for the past few years, worse lately; abd tenderness on exam Pt with stool positive for occult blood in the past Check stool for occult blood CT of abdomen/pelvis to r/o acute abdomen ?CHF Elevated BNP, lower leg edema, no JVD Pt given Lasix IV in ED Will get echocardiogram to guide management of possible CHF Monitor urine output DNR/DNI Attending:?Dr. Jones DVT Prophylaxis: Pneumatic boots Pt will require a hospitalization of at least two nights for treatment of?alcohol withdrawal, COPD exacerbation, and UTI IV antibiotics, phenobarb, and steroids. Time Spent With Patient Time: Total time managing care of this patient today ____ minutes. Quality Stroke Does the patient have a stroke diagnosis?: No VTE Prior VTE?: No VTE Risk Level:: Medical - moderate - high VTE Device Contraindication: N/A - Device Ordered VTE Drug Contraindication: Treatment Not Indicated
[2022-06-12] MEDS: methylPREDNISolone Sod Succ 125 MG/2 ML VIAL IVPUSH (19:53)
[2022-06-12] MEDS: cefTRIAXone sodium 1 GM in 0.9 % Sodium Chloride 50 ML IV (19:53)
[2022-06-12] MEDS: PHENobarbitaL sodium 130 MG/ML IM ONCE 182 MG IM (19:54)
--- NOTE | 2022-06-12 20:26 | PHA.MEDREC ---
Pharmacy Consult ? Medication Reconciliation Pharmacy has completed the medication reconciliation. Pt joann historian, admittedly non-adherent to medications. States she gets her prescriptions from [facility] in [place], should be on venlafaxine, xifaxan, nadolol; has not filled since February 2022. Provider aware.
--- NOTE | 2022-06-12 20:28 | PC.NURSE ---
Upon entrance to pt room pt complaining of difficulty breathing and like my airway is closing . Pt receiving ceftriaxone IV at this time. VSS, O2 saturation 95% on RA. BP 131/60, HR 102. Pt speaking in full sentences with no airway difficulty. MD Jones aware, will continue to monitor and treat as needed.
[2022-06-12 20:33] VITALS: BP 131/60; PULSE 102; RESP 18; TEMP 36.1; O2SAT 95
[2022-06-12] MEDS: Pantoprazole Sodium 40 MG/10 ML VIAL IVPUSH (23:07)
[2022-06-12] MEDS: PHENobarbitaL sodium 130 MG/ML VIAL IM Q3Hx2 140 MG IM (23:08)
[2022-06-12] MEDS: Acetaminophen 325 MG TABLET 650 MG PO (23:09)
[2022-06-13] VITALS (9 sets, daily range): BP systolic 120–135; BP diastolic 56–71; PULSE 90–116; RESP 16–20; TEMP 36.1–37.2; O2SAT 91–99; BMI 40.7
[2022-06-13] MEDS: PHENobarbitaL sodium 130 MG/ML VIAL IM Q3Hx2 140 MG IM (01:42)
[2022-06-13] MEDS: 0.9 % Sodium Chloride Flush 3 ML SYRINGE IVFLUSH ×4 (01:43→20:12)
[2022-06-13] MEDS: Pantoprazole Sodium 40 MG/10 ML VIAL IVPUSH ×2 (05:35→15:13)
--- NOTE | 2022-06-13 07:00 | CA_ITS ---
Transthoracic Echocardiogram Patient (Last, First, Middle): Marj Rodriges, Gender: Female Date of : 1965 Age: 57 Procedure Date: 06/13/2022 Procedure Type: Transthoracic Echocardiogram [place] [facility] [place]: 152.4 cm Weight: 94.35 kg BSA: 1.90 m2 Heart Rate: bpm BP: 120 / 57 mmHg Core Machine Operator: SB Referring MD: Sujit BERNAL Symptoms: ?CHF Study Quality: Fair parasternal/adequate apical images ECG Rhythm: Tachycardia Conclusions: - Normal left ventricular cavity size. There is normal left ventricular wall thickness. The left ventricular systolic function is hyperdynamic. The visually estimated ejection fraction is >70%. - There is resting gradient across the LVOT with peak gradient of 47 mm Hg at rest and 70 mm Hg with Valsalva. - There is a normal trileaflet aortic valve. There is no aortic valve regurgitation. On 2D imaging the aortic valve does not appear to be calcified or stenosed but max velocity across the valve is 4 m/sec with mean gradient 37. I think this is due to calcified nodule in the left ventricular outflow tract and this is subvalvular stenosis. - There is severe mitral annular calcification. There is no mitral valve regurgitation. Severe MAC and MG across MV of 10-12 mm Hg at HR 97. The patient appears to be in a hyperdynamic state and these gradients can be high due to that. Mitral stenosis is present. Findings Left Ventricle Normal left ventricular cavity size. There is normal left ventricular wall thickness. The left ventricular systolic function is hyperdynamic. The visually estimated ejection fraction is >70%. There is no evidence of regional wall motion abnormalities. Diastolic function is indeterminate on the basis of available data. There is a calcific nodule in left ventricle outflow tract on the mitral aortic continuation side. There is flow acceleration in the area but no obvious systolic anterior motion of the mitral valve is noted although imaging is somewhat limited. There is resting gradient across the LVOT with peak gradient of 47 mm Hg at rest and 70 mm Hg with Valsalva. Right Ventricle Mildly increased right ventricular cavity size. There is normal right ventricular systolic function. Atria The left atrium is moderately dilated. The right atrium is normal in size. Aortic Valve There is a normal trileaflet aortic valve. There is no aortic valve regurgitation. On 2D imaging the aortic valve does not appear to be calcified or stenosed but max velocity across the valve is 4 m/sec with mean gradient 37. I think this is due to calcified nodule in the left ventricular outflow tract and this is subvalvular stenosis. Mitral Valve There is severe mitral annular calcification. There is no mitral valve regurgitation. Severe MAC and MG across MV of 10-12 mm Hg at HR 97. The patient appears to be in a hyperdynamic state and these gradients can be high due to that. Mitral stenosis is present. Pulmonic Valve The pulmonic valve is likely normal. Tricuspid Valve Normal tricuspid valve structure. Great Vessels All visible segments of the aorta are normal in size. Prior Study Comparison No prior study available for comparison. Measurements 2D Linear Measurements IVSd: 1.26 0.6-0.9/0.6-1.0 cm LVIDd: 4.32 3.9-5.3/4.2-5.9 cm LVIDd Index: 2.27 2.4-3.2/2.2-3.1 cm/m2 LVPWd: 1.15 0.7-1.1 cm LA Diam: 4.10 2.7-3.8/3.0-4.0 cm LAIDs Index: 2.16 1.5-2.3 cm/m2 LV Mass: 233.17 67-162/88-224 g LV Mass Index: 122.72 43-95/49-115 g/m2 LVOT Diam: 2.00 3.0+(-)1.3 cm 2D Systolic Function EF 4C: 82.60 >55% EF 2C: 82.50 >55% EF BiP: 82.90 >55% Mitral Valve MV VTI: 0.54 MV Pk Keegan: 2.19 MV Mn Keegan: 1.61 MV Pk Grad: 19.00 MV Mn Grad: 11.00 MV Pk E: 1.19 MV PK A: 1.77 MV Decel Time: 303.00 E/A: 0.70 E'Lateral: 5.91 E'Medial: 5.66 E/E' Med: 21.00 E/E' Lat: 20.10 PHT: 89.00 MVA PHT: 2.47 MVA Continuity: 3.28 Decel [place]: 3.93 Aortic Valve AoV Pk Keegan: 4.23 AoV Mn Keegan: 2.99 AoV VTI: 0.87 AoV Pk Grad: 72.00 Aov Mn Grad: 42.00 MALIK Cont.VTI: 2.05 LVOT LVOT Pk Keegan: 3.01 LVOT Mn Keegan: 2.20 LVOT VTI: 0.57 LVOT Pk Grad: 36.00 LVOT Mn Grad: 23.00 LVOT Diam: 2.00 LVOT Area: 3.14 Diastolic Function MV Pk E: 1.19 MV Pk A: 1.77 E/A: 0.70 E'Medial: 5.66 E/E' Med: 21.00 E' Laterial: 5.91 E/E' Lat: 20.10 Right Ventricle TAPSE (mm): 27.20 TVS' Keegan: 20.90 Great Vessels Aorta Sinus of Valsalva: 3.00 2.0-3.5 cm Ao Asc: 2.90 2.1-3.4 cm Pulmonary Valve PV Pk Keegan: 1.81 Peak PV Grad: 13.00 Updated in Other Vendor System with Status of Final Dl Root MD electronically signed on 06/14/2022 1:54:13 PM with status of Final
[2022-06-13 07:38] LABS: Hematocrit 29.8 % (37.0-47.0); Hemoglobin 8.7 g/dl (12.0-16.0); Mean Corpuscular HGB Conc 29.2 g/dl (31.0-35.0); Mean Corpuscular Hemoglobin 21.8 pg (27.0-33.0); Mean Corpuscular Volume 74.7 fL (80.0-98.0); Mean Platelet Volume 10.7 fL (9.4-12.3); Platelet Count 114 X10*3/uL (160-400); Red Blood Count 3.99 X10*6/uL (4.20-5.50); Red Cell Distribution Width 19.6 % (11.0-16.0); White Blood Count 3.8 X10*3/uL (4.8-10.8)
[2022-06-13] MEDS: PHENobarbitaL 30 MG TABLET PO ×2 (07:58→20:12)
[2022-06-13] MEDS: Multivitamin TABLET 1 TAB PO (07:58)
[2022-06-13] MEDS: Thiamine HCL 100 MG TABLET PO (07:58)
[2022-06-13] MEDS: methylPREDNISolone Sod Succ 40 MG/ML VIAL IVPUSH ×2 (07:58→20:11)
[2022-06-13] MEDS: Folic Acid 1 MG TABLET PO (07:58)
[2022-06-13] MEDS: Acetaminophen 325 MG TABLET 650 MG PO ×2 (08:07→15:12)
[2022-06-13 08:41] LABS: Anion Gap 17 (12-20); Blood Urea Nitrogen 6 mg/dL (9-16); Calcium 7.6 mg/dL (8.4-10.2); Carbon Dioxide 27 mmol/L (22-29); Chloride 102 mmol/L (96-108); Creatinine Clr Calc Pharmacy 111.2; Estimated Glomerular Filt Rate > 60; Glucose Random 158 mg/dL (60-115); Magnesium 1.1 mg/dL (1.6-2.6); Potassium 3.1 mmol/L (3.3-5.1); Sodium 143 mmol/L (135-145)
[2022-06-13] MEDS: Potassium Chloride Packet 20 MEQ PACKET 40 MEQ PO ×2 (09:36→20:05)
[2022-06-13] MEDS: Magnesium Sulfate/H2O 2 GM/50 ML PIGGYBACK IV ×2 (09:36→17:08)
[2022-06-13 09:54] LABS: OBS Int Ctl Valid YES; OBS1 NEGATIVE (NEGATIVE)
[2022-06-13] MEDS: Albuterol/Iprat 2.5/0.5MG 3 ML AMPUL.NEB INHALE ×3 (11:30→19:43)
--- NOTE | 2022-06-13 12:56 | MHC.CM.PN ---
Addendum entered by Tejal West 06/14/22 08:24: [facility] IS FOLLOWING AND OFFERING PENDING BED AVAILABILITY, 0 CIWA, AND INSURANCE AUTH Original Note: PT REPORTS SHE LIVES IN A HOTEL OR CAR WITH HER BOYFRIEND DEPENDING ON HOW MUCH MONEY THEY HAVE SHE REPORTS SHE USES A CANE OR WALKER AT [facility] BUT HER WALKER IS IN STORAGE SHE DOES NOT HAVE A PCP HCP ON FILE SHE SAYS SHE IS COVID VAX BUT DOES NOT KNOW THE NUMBER OF DOSES IMM DELIVERED PT REPORTS FEELING UNSTEADY, HOWEVER SHE TYPICALLY IMPROVES ONCE W/D SYMPTOMS DECREASE DCP TBD PENDING RECOVERY TEAM CONSULT ETOH TREATMENT VS RETURN TO PRIOR LIVING SITUATION TRANSPORT TBD BY DISPO
[2022-06-13] MEDS: Lactated Ringers 1,000 ML 125 ML IVCONT (13:42)
--- NOTE | 2022-06-13 15:10 | P.PNIM_ITS ---
Subjective Subjective Date of Service: 06/13/22 Interval History: seen and examined this morning admitted overnight for alcohol withdrawal reports some shakiness and anxiety; abdominal pain, chest congestion no fever, chills Review of Systems Review of Systems: Yes all other systems are reviewed and are negative Constitutional Constitutional: Denies chills and Denies fever(s) Cardiovascular Cardiovascular: Denies chest pain and Denies dyspnea Respiratory Respiratory: Reports chest congestion and Denies dyspnea Gastrointestinal Gastrointestinal: Reports abdominal pain, Denies nausea and Denies vomiting Physical Exam Vital Signs: Vital Signs: Last Vital Signs Temp 98.5 F 06/13/22 11:43 Pulse 113 H 06/13/22 14:52 Resp 20 06/13/22 14:52 BP 128/64 06/13/22 11:43 Pulse Ox 97 06/13/22 11:43 O2 Del Method Room Air 06/13/22 11:43 O2 Flow Rate 1.5 06/12/22 16:30 Oxygen Flow Rate 1 06/12/22 14:07 BMI result Body Mass Index 40.7 Const: General: alert and awake Nutritional Appearance: obese Orientation/consciousness: patient oriented x3 Resp: Other: diminished Effort & Inspection: normal respiratory effort, able to speak in complete sentences and no use of accessory muscles Cardio: Rate: regular rate GI: Inspection: No distended Palpation (GI): Soft to palpation Neuro: General: patient oriented x3 and CN's II-XI intact bilaterally Extrem: General: Yes no pedal edema Objective Data Active Medications Acetaminophen (Acetaminophen 325 Mg Tablet) 650 mg PO Q6H PRN PRN Reason: Pain, Mild (Pain Scale 1-3) Last Admin: 06/13/22 08:07 Dose: 650 mg Documented By: GINA Albuterol/Ipratropium (Albuterol/Iprat 2.5/0.5mg 3 Ml Ampul.Neb) 3 ml INHALE RQ4H WHILE AWAKE [facility] Last Admin: 06/13/22 14:43 Dose: 3 ml Documented By: GUSTAVO Folic Acid (Folic Acid 1 Mg Tablet) 1 mg PO DAILY [facility] Stop: 06/16/22 08:59 Last Admin: 06/13/22 07:58 Dose: 1 mg Documented By: GINA Ceftriaxone Sodium 1 gm/ (Sodium Chloride) 50 mls @ 100 mls/hr IV Q24H [facility] Lactated Ringer's (Lr) 1,000 mls @ 125 mls/hr IVCONT .Q8H [facility] Last Admin: 06/13/22 13:42 Dose: 125 mls/hr Documented By: GINA Methylprednisolone Sodium Succinate (Methylprednisolone Sod Succ 40 Mg/Ml Vial) 40 mg IVPUSH Q12H [facility] Last Admin: 06/13/22 07:58 Dose: 40 mg Documented By: GINA Multivitamins/Vitamin C (Multivitamin Tablet) 1 tab PO DAILY [facility] Stop: 06/16/22 08:59 Last Admin: 06/13/22 07:58 Dose: 1 tab Documented By: GINA Ondansetron HCl (Ondansetron Hcl 4 Mg/2 Ml Vial) 4 mg IVPUSH Q8H PRN PRN Reason: Nausea and Vomiting Pantoprazole Sodium (Pantoprazole Sodium 40 Mg/10 Ml Vial) 40 mg IVPUSH BID@0630,1630 [facility] Last Admin: 06/13/22 05:35 Dose: 40 mg Documented By: ISABEL Pharmacy Consult (Consult Rx Etoh Phenob Im/Po) 1 each MISCELLANE ONCE PRN; Protocol PRN Reason: Consult order Phenobarbital (Phenobarbital 30 Mg Tablet) 30 mg PO BID [facility]; Protocol Stop: 06/14/22 21:01 Last Admin: 06/13/22 07:58 Dose: 30 mg Documented By: GINA Phenobarbital (Phenobarbital 15 Mg Tablet) 15 mg PO BID [facility]; Protocol Stop: 06/16/22 21:01 Phenobarbital (Phenobarbital 15 Mg Tablet) 15 mg PO DAILY [facility]; Protocol Stop: 06/18/22 09:01 Potassium Chloride (Potassium Chloride Packet 20 Meq Packet) 40 meq PO BID [facility] Stop: 06/13/22 21:01 Last Admin: 06/13/22 09:36 Dose: 40 meq Documented By: GINA Sodium Chloride (0.9 % Sodium Chloride Flush 3 Ml Syringe) 3 ml IVFLUSH QSHIFT [facility] Last Admin: 06/13/22 07:58 Dose: 3 ml Documented By: GINA Thiamine HCl (Thiamine Hcl 100 Mg Tablet) 100 mg PO DAILY [facility] Stop: 06/16/22 08:59 Last Admin: 06/13/22 07:58 Dose: 100 mg Documented By: GINA Labs 06/13/22 06:43 06/13/22 06:43 Labs: Laboratory Results - last 24 hr 06/12/22 06/12/22 06/13/22 15:44 16:53 06:43 MCV 74.7 L MCH 21.8 L MCHC 29.2 L RDW 19.6 H Plt Count 114 L D MPV 10.7 Absolute Nucleated RBC 0.000 Nucleated RBC % (auto) 0.0 VBG pH 7.42 VBG pCO2 58 VBG pO2 54 VBG HCO3 38 H VBG O2 Saturation 75.0 VBG Base Excess 12.1 Anion Gap Estim Creat Clear Calc Estimated GFR Random Glucose Calcium Magnesium Urine Color Yellow Urine Appearance Cloudy Urine pH 6.0 Ur Specific [place] 1.015 Urine Protein Negative Urine Glucose (UA) Negative Urine Ketones Negative Urine Blood Negative Urine Nitrite Positive H Ur Leukocyte Esterase Moderate (2+) H Urine RBC 0-2 Urine WBC 21-50 H Ur Squamous Epith Cells 6-10 Calcium Oxalate Crystal Present Urine Bacteria 4+ Hyaline Casts 0-2 Stool Occult Blood 06/13/22 06/13/22 06:43 09:41 MCV MCH MCHC RDW Plt Count MPV Absolute Nucleated RBC Nucleated RBC % (auto) VBG pH VBG pCO2 VBG pO2 VBG HCO3 VBG O2 Saturation VBG Base Excess Anion Gap 17 Estim Creat Clear Calc 111.2 Estimated GFR > 60 Random Glucose 158 H Calcium 7.6 L Magnesium 1.1 L* Urine Color Urine Appearance Urine pH Ur Specific [place] Urine Protein Urine Glucose (UA) Urine Ketones Urine Blood Urine Nitrite Ur Leukocyte Esterase Urine RBC Urine WBC Ur Squamous Epith Cells Calcium Oxalate Crystal Urine Bacteria Hyaline Casts Stool Occult Blood NEGATIVE Microbiology Microbiology Results: Microbiology 06/12/22 17:33 Urine Culture - Preliminary Urine clean catch - Urine lopez top Gram negative jameel Assessment and Plan (1) Alcohol withdrawal: Status: Acute (2) COPD (chronic obstructive pulmonary disease): Status: Acute Plan Pt is a 57-year-old female with a PMH significant for?alcohol use disorder with alcoholic cirrhosis, mood disorder, HTN, COPD, and history of GI bleeding who presents to the ED with?shortness of breath and withdrawing from alcohol. Pt will be admitted to the hospital for treatment and further evaluation of acute COPD exacerbation, UTI, and alcohol withdrawal. Acute alcohol withdrawal Pt drinks 1 pint of peppermint schnapps daily, h/o alcohol withdrawal seizures Continue Phenobarb protocol Daily multivitamin, folic acid 1mg, Thiamine 100 mg daily IV Protonix bid Addiction medicine consult Acute COPD exacerbation Pt has been non-compliant with home inhalers for at least six months continue IV Solu-Medrol, DuoNebs UTI urine culture growing GNR - follow final culture results Continue IV Ceftriaxone, started 06/12 hypomagnesemia, hypokalemia continue replacement follow levels Bloody diarrhea/abdominal pain Pt complains of bloody diarrhea on and off for the past few years, worse lately. reporting blood on toilet paper not necessarily mixed with stool stool occult negative CT of abdomen/pelvis negative for infectious process. liver nodules chronic - outpatient follow up H/H stable ?pain r/t etoh gastritis - continue IV PPI ?CHF Elevated BNP, lower leg edema, no JVD Pt given Lasix IV in ED ECHO pending Monitor urine output liver cirrhosis with esophageal varices with chronic pancytopenia no abdominal ascites chronic microcytic anemia H/H stable no evidence of acute blood loss above transfusion threshold hypernatremia sodium 150 on admission resolved DNR/DNI Attending:?Dr. Sinha DVT Prophylaxis: Pneumatic boots dispo - pt homeless, CM aware Requires ongoing inpatient hospitalization for treatment of?alcohol withdrawal, COPD exacerbation, and UTI IV antibiotics, phenobarb, and steroids. Time Spent With Patient Time: Total time managing care of this patient today ____ minutes. Quality Stroke Does the patient have a stroke diagnosis?: No VTE Prior VTE?: No VTE Risk Level:: Medical - moderate - high VTE Device Contraindication: N/A - Device Ordered VTE Drug Contraindication: Treatment Not Indicated
--- NOTE | 2022-06-13 16:13 | PM.EVENT ---
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
[2022-06-13] MEDS: ondansetron HCL 4 MG/2 ML VIAL IVPUSH (20:07)
[2022-06-13] MEDS: cefTRIAXone sodium 1 GM in 0.9 % Sodium Chloride 50 ML IV (20:12)
[2022-06-14] VITALS (8 sets, daily range): BP systolic 115–146; BP diastolic 57–66; PULSE 80–104; RESP 18–20; TEMP 36.1–37.3; O2SAT 92–99
[2022-06-14] MEDS: Pantoprazole Sodium 40 MG/10 ML VIAL IVPUSH ×2 (06:17→16:44)
[2022-06-14 07:58] LABS: Hematocrit 29.7 % (37.0-47.0); Hemoglobin 8.7 g/dl (12.0-16.0); Mean Corpuscular HGB Conc 29.3 g/dl (31.0-35.0); Mean Corpuscular Hemoglobin 22.1 pg (27.0-33.0); Mean Corpuscular Volume 75.4 fL (80.0-98.0); Mean Platelet Volume 10.8 fL (9.4-12.3); NRBC Pct Auto 0.3 /100WBC (0.0-0.2); Platelet Count 126 X10*3/uL (160-400); Red Blood Count 3.94 X10*6/uL (4.20-5.50); Red Cell Distribution Width 19.9 % (11.0-16.0); White Blood Count 8.9 X10*3/uL (4.8-10.8)
[2022-06-14] MEDS: Albuterol/Iprat 2.5/0.5MG 3 ML AMPUL.NEB INHALE ×2 (08:02→12:18)
[2022-06-14 08:42] LABS: Anion Gap 12 (12-20); Blood Urea Nitrogen 10 mg/dL (9-16); Calcium 8.1 mg/dL (8.4-10.2); Carbon Dioxide 28 mmol/L (22-29); Chloride 103 mmol/L (96-108); Creatinine Clr Calc Pharmacy 94.4; Estimated Glomerular Filt Rate > 60; Glucose Random 120 mg/dL (60-115); Magnesium 1.9 mg/dL (1.6-2.6); Potassium 4.3 mmol/L (3.3-5.1); Sodium 139 mmol/L (135-145)
[2022-06-14] MEDS: methylPREDNISolone Sod Succ 40 MG/ML VIAL IVPUSH ×2 (09:21→21:17)
[2022-06-14] MEDS: Thiamine HCL 100 MG TABLET PO (09:21)
[2022-06-14] MEDS: PHENobarbitaL 30 MG TABLET PO ×2 (09:21→21:17)
[2022-06-14] MEDS: 0.9 % Sodium Chloride Flush 3 ML SYRINGE IVFLUSH ×3 (09:22→21:17)
[2022-06-14] MEDS: Multivitamin TABLET 1 TAB PO (09:22)
[2022-06-14] MEDS: Folic Acid 1 MG TABLET PO (09:22)
[2022-06-14] MEDS: Magnesium Sulfate/H2O 2 GM/50 ML PIGGYBACK IV (09:24)
--- NOTE | 2022-06-14 10:05 | HO.PM.IMPN ---
Subjective Subjective Date of Service: 06/14/22 Interval History: seen and examined this morning follow up for etoh withdrawal feeling better this morning, still shaky; no abdominal pain, no dyspnea some diarrhea Review of Systems Review of Systems: Yes all other systems are reviewed and are negative Constitutional Constitutional: Denies chills and Denies fever(s) Cardiovascular Cardiovascular: Denies chest pain, Denies palpitations and Denies dyspnea Respiratory Respiratory: Denies cough and Denies dyspnea Gastrointestinal Gastrointestinal: Denies abdominal pain, Reports diarrhea, Denies nausea and Denies vomiting Endocrine Endocrine: Denies palpitations Physical Exam Vital Signs: Vital Signs: Last Vital Signs Temp 98.3 F 06/14/22 08:00 Pulse 89 06/14/22 08:04 Resp 18 06/14/22 08:04 BP 123/58 L 06/14/22 08:00 Pulse Ox 92 06/14/22 08:00 O2 Del Method Room Air 06/14/22 08:00 O2 Flow Rate 1.5 06/12/22 16:30 Oxygen Flow Rate 1 06/12/22 14:07 BMI result Body Mass Index 40.7 Const: General: alert and awake Nutritional Appearance: obese Orientation/consciousness: patient oriented x3 Resp: Other: diminished Effort & Inspection: normal respiratory effort, able to speak in complete sentences and no use of accessory muscles Cardio: Rate: regular rate GI: Inspection: No distended Palpation (GI): Soft to palpation Neuro: General: patient oriented x3 and CN's II-XI intact bilaterally Extrem: General: Yes no pedal edema Objective Data Active Medications Acetaminophen (Acetaminophen 325 Mg Tablet) 650 mg PO Q6H PRN PRN Reason: Pain, Mild (Pain Scale 1-3) Last Admin: 06/13/22 15:12 Dose: 650 mg Documented By: GINA Albuterol/Ipratropium (Albuterol/Iprat 2.5/0.5mg 3 Ml Ampul.Neb) 3 ml INHALE RQ4H WHILE AWAKE [facility] Last Admin: 06/14/22 08:02 Dose: 3 ml Documented By: YOLANDA Folic Acid (Folic Acid 1 Mg Tablet) 1 mg PO DAILY [facility] Stop: 06/16/22 08:59 Last Admin: 06/14/22 09:22 Dose: 1 mg Documented By: TANNER Ceftriaxone Sodium 1 gm/ (Sodium Chloride) 50 mls @ 100 mls/hr IV Q24H [facility] Last Infusion: 06/13/22 21:30 Dose: 0 mls/hr Documented By: TEO Lactated Ringer's (Lr) 1,000 mls @ 125 mls/hr IVCONT .Q8H [facility] Last Admin: 06/14/22 05:22 Dose: Not Given Documented By: TEO Non-Admin Reason: Patient Refused Methylprednisolone Sodium Succinate (Methylprednisolone Sod Succ 40 Mg/Ml Vial) 40 mg IVPUSH Q12H [facility] Last Admin: 06/14/22 09:21 Dose: 40 mg Documented By: TANNER Multivitamins/Vitamin C (Multivitamin Tablet) 1 tab PO DAILY [facility] Stop: 06/16/22 08:59 Last Admin: 06/14/22 09:22 Dose: 1 tab Documented By: TANNER Ondansetron HCl (Ondansetron Hcl 4 Mg/2 Ml Vial) 4 mg IVPUSH Q8H PRN PRN Reason: Nausea and Vomiting Last Admin: 06/13/22 20:07 Dose: 4 mg Documented By: TEO Pantoprazole Sodium (Pantoprazole Sodium 40 Mg/10 Ml Vial) 40 mg IVPUSH BID@0630,1630 [facility] Last Admin: 06/14/22 06:17 Dose: 40 mg Documented By: TEO Pharmacy Consult (Consult Rx Etoh Phenob Im/Po) 1 each MISCELLANE ONCE PRN; Protocol PRN Reason: Consult order Phenobarbital (Phenobarbital 30 Mg Tablet) 30 mg PO BID [facility]; Protocol Stop: 06/14/22 21:01 Last Admin: 06/14/22 09:21 Dose: 30 mg Documented By: TANNER Phenobarbital (Phenobarbital 15 Mg Tablet) 15 mg PO BID [facility]; Protocol Stop: 06/16/22 21:01 Phenobarbital (Phenobarbital 15 Mg Tablet) 15 mg PO DAILY [facility]; Protocol Stop: 06/18/22 09:01 Sodium Chloride (0.9 % Sodium Chloride Flush 3 Ml Syringe) 3 ml IVFLUSH QSHIFT [facility] Last Admin: 06/14/22 09:22 Dose: 3 ml Documented By: TANNER Thiamine HCl (Thiamine Hcl 100 Mg Tablet) 100 mg PO DAILY [facility] Stop: 06/16/22 08:59 Last Admin: 06/14/22 09:21 Dose: 100 mg Documented By: TANNER Labs 06/14/22 07:48 06/14/22 07:48 Labs: Laboratory Results - last 24 hr 06/14/22 06/14/22 07:48 07:48 MCV 75.4 L MCH 22.1 L MCHC 29.3 L RDW 19.9 H Plt Count 126 L MPV 10.8 Absolute Nucleated RBC 0.030 H Nucleated RBC % (auto) 0.3 H Anion Gap 12 Estim Creat Clear Calc 94.4 Estimated GFR > 60 Random Glucose 120 H Calcium 8.1 L D Magnesium 1.9 Microbiology Microbiology Results: Microbiology 06/12/22 17:33 Urine Culture - Final Urine clean catch - Urine lopez top Klebsiella pneumoniae 06/12/22 15:40 Blood Culture - Preliminary Blood - Venous No growth after 24 hours. 06/12/22 14:24 Blood Culture - Preliminary Blood - Venous No growth after 24 hours. Assessment and Plan (1) Alcohol withdrawal: Status: Acute (2) UTI (urinary tract infection): Status: Acute Plan Pt is a 57-year-old female with a PMH significant for?alcohol use disorder with alcoholic cirrhosis, mood disorder, HTN, COPD, and history of GI bleeding who presents to the ED with?shortness of breath and withdrawing from alcohol. Pt will be admitted to the hospital for treatment and further evaluation of acute COPD exacerbation, UTI, and alcohol withdrawal. Acute alcohol withdrawal Pt drinks 1 pint of peppermint schnapps daily, h/o alcohol withdrawal seizures Continue Phenobarb protocol Daily multivitamin, folic acid 1mg, Thiamine 100 mg daily IV Protonix bid Addiction medicine consult Acute COPD exacerbation Pt has been non-compliant with home inhalers for at least six months continue IV Solu-Medrol, DuoNebs UTI urine culture growing klebsiella Continue IV Ceftriaxone, started 06/12, end date 06/16 hypomagnesemia, hypokalemia improved with replacement follow levels abdominal pain reporting blood on toilet paper not necessarily mixed with stool stool occult negative CT of abdomen/pelvis negative for infectious process. liver nodules chronic - outpatient follow up H/H stable ?pain r/t etoh gastritis - continue IV PPI, likely change to po tomorrow ?CHF Elevated BNP, lower leg edema, no JVD Pt given Lasix IV in ED ECHO pending liver cirrhosis with esophageal varices with chronic pancytopenia no abdominal ascites chronic microcytic anemia H/H stable no evidence of acute blood loss above transfusion threshold hypernatremia sodium 150 on admission resolved Morbid obesity BMI 40.7 weight loss encouraged DNR/DNI Attending:?Dr. Sinha DVT Prophylaxis: Pneumatic boots dispo - pt homeless, CM aware Requires ongoing inpatient hospitalization for treatment of?alcohol withdrawal, COPD exacerbation, and UTI IV antibiotics, phenobarb, and steroids. Time Spent With Patient Time: Total time managing care of this patient today ____ minutes. Quality Stroke Does the patient have a stroke diagnosis?: No VTE Prior VTE?: No VTE Risk Level:: Medical - moderate - high VTE Device Contraindication: N/A - Device Ordered VTE Drug Contraindication: Treatment Not Indicated
--- NOTE | 2022-06-14 11:24 | MHC.RECOVRN ---
This commercial lines underwriter met w/ patient, after addiction consult was placed. Patient was alert sitting up in recliner, watching t.v. Patient reports since last hospitalization has been drinking daily 1 pint pepper regine. Patient states is chronically homeless, lives in [place] with her boyfriend. Patient states due to struggles with chronic homelessness, continues to drink and finds it difficult to stop. Patient reports in the past had tried Naltrexone and Vivitrol, patient states can't remember if it was helpful or not. Patient reports about 2 years ago went to [facility] level of care at the [facility]. Patient states boyfriend is supportive of recovery and ETOH use has strained their relationship. Patient expressed interest in DENY, reviewed medications. Patient interested in Campral.Patient states not interested in treatment level of care for ETOH use at this time. Harm reduction reviewed, patient agreeable to review recovery resources at bedside. Addition Provider aware of patients interest in Campral.
[2022-06-14] MEDS: cefTRIAXone sodium 1 GM in 0.9 % Sodium Chloride 50 ML IV (21:16)
[2022-06-14] MEDS: Acetaminophen 325 MG TABLET 650 MG PO (21:17)
[2022-06-15 04:59] VITALS: BP 133/62; PULSE 84; RESP 20; TEMP 36.4; O2SAT 95
[2022-06-15] MEDS: Acetaminophen 325 MG TABLET 650 MG PO (06:11)
[2022-06-15] MEDS: Pantoprazole Sodium 40 MG/10 ML VIAL IVPUSH (06:11)
[2022-06-15 08:00] VITALS: BP 123/58; PULSE 102; RESP 20; TEMP 36.8; O2SAT 97
--- NOTE | 2022-06-15 10:40 | P.PNIM_ITS ---
Subjective Subjective Date of Service: 06/15/22 Interval History: seen and examined this morning follow up for etoh withdrawal, UTI starting to feel better, less shaky Review of Systems Review of Systems: Yes all other systems are reviewed and are negative Constitutional Constitutional: Denies chills and Denies fever(s) Cardiovascular Cardiovascular: Denies chest pain, Denies palpitations and Denies dyspnea Respiratory Respiratory: Denies cough and Denies dyspnea Gastrointestinal Gastrointestinal: Denies abdominal pain Endocrine Endocrine: Denies palpitations Physical Exam Vital Signs: Vital Signs: Last Vital Signs Temp 98.2 F 06/15/22 08:00 Pulse 102 H 06/15/22 08:00 Resp 20 06/15/22 08:00 BP 123/58 L 06/15/22 08:00 Pulse Ox 97 06/15/22 08:00 O2 Del Method Room Air 06/15/22 08:00 O2 Flow Rate 1.5 06/12/22 16:30 Oxygen Flow Rate 1 06/12/22 14:07 BMI result Body Mass Index 40.7 Const: General: cooperative, comfortable, no acute distress, alert and awake Nutritional Appearance: obese Orientation/consciousness: patient oriented x3 Resp: Other: diminished Effort & Inspection: normal respiratory effort, able to speak in complete sentences and no use of accessory muscles Cardio: Rate: regular rate GI: Inspection: No distended Palpation (GI): Soft to palpation Neuro: General: patient oriented x3 and CN's II-XI intact bilaterally Extrem: General: Yes no pedal edema Objective Data Active Medications Acetaminophen (Acetaminophen 325 Mg Tablet) 650 mg PO Q6H PRN PRN Reason: Pain, Mild (Pain Scale 1-3) Last Admin: 06/15/22 06:11 Dose: 650 mg Documented By: TEO Albuterol/Ipratropium (Albuterol/Iprat 2.5/0.5mg 3 Ml Ampul.Neb) 3 ml INHALE RQ 4H WHILE AWAKE [facility] Last Admin: 06/15/22 07:56 Dose: Not Given Documented By: HARRISON Non-Admin Reason: will call when needed Folic Acid (Folic Acid 1 Mg Tablet) 1 mg PO DAILY [facility] Stop: 06/16/22 08:59 Last Admin: 06/14/22 09:22 Dose: 1 mg Documented By: TANNER Ceftriaxone Sodium 1 gm/ (Sodium Chloride) 50 mls @ 100 mls/hr IV Q24H [facility] Last Infusion: 06/14/22 22:49 Dose: 0 mls/hr Documented By: TEO Methylprednisolone Sodium Succinate (Methylprednisolone Sod Succ 40 Mg/Ml Vial) 40 mg IVPUSH Q12H [facility] Last Admin: 06/14/22 21:17 Dose: 40 mg Documented By: TEO Multivitamins/Vitamin C (Multivitamin Tablet) 1 tab PO DAILY [facility] Stop: 06/16/22 08:59 Last Admin: 06/14/22 09:22 Dose: 1 tab Documented By: TANNER Ondansetron HCl (Ondansetron Hcl 4 Mg/2 Ml Vial) 4 mg IVPUSH Q8H PRN PRN Reason: Nausea and Vomiting Last Admin: 06/13/22 20:07 Dose: 4 mg Documented By: TEO Pantoprazole Sodium (Pantoprazole Sodium 40 Mg/10 Ml Vial) 40 mg IVPUSH BID@0630,1630 [facility] Last Admin: 06/15/22 06:11 Dose: 40 mg Documented By: TEO Pharmacy Consult (Consult Rx Etoh Phenob Im/Po) 1 each MISCELLANE ONCE PRN; Protocol PRN Reason: Consult order Phenobarbital (Phenobarbital 15 Mg Tablet) 15 mg PO BID [facility]; Protocol Stop: 06/16/22 21:01 Phenobarbital (Phenobarbital 15 Mg Tablet) 15 mg PO DAILY [facility]; Protocol Stop: 06/18/22 09:01 Sodium Chloride (0.9 % Sodium Chloride Flush 3 Ml Syringe) 3 ml IVFLUSH QSHIFT [facility] Last Admin: 06/14/22 21:17 Dose: 3 ml Documented By: TEO Thiamine HCl (Thiamine Hcl 100 Mg Tablet) 100 mg PO DAILY [facility] Stop: 06/16/22 08:59 Last Admin: 06/14/22 09:21 Dose: 100 mg Documented By: TANNER Labs 06/14/22 07:48 06/14/22 07:48 Microbiology Microbiology Results: Microbiology 06/12/22 15:40 Blood Culture - Preliminary Blood - Venous No growth after 48 hours. 06/12/22 14:24 Blood Culture - Preliminary Blood - Venous No growth after 48 hours. 06/12/22 17:33 Urine Culture - Final Urine clean catch - Urine lopez top Klebsiella pneumoniae Assessment and Plan (1) UTI (urinary tract infection): Status: Acute (2) COPD (chronic obstructive pulmonary disease): Status: Acute Plan Pt is a 57-year-old female with a PMH significant for?alcohol use disorder with alcoholic cirrhosis, mood disorder, HTN, COPD, and history of GI bleeding who presents to the ED with?shortness of breath and withdrawing from alcohol. Pt will be admitted to the hospital for treatment and further evaluation of acute COPD exacerbation, UTI, and alcohol withdrawal. Acute alcohol withdrawal Pt drinks 1 pint of peppermint schnapps daily, h/o alcohol withdrawal seizures Continue Phenobarb protocol Daily multivitamin, folic acid 1mg, Thiamine 100 mg daily seen by Addiction medicine Acute COPD exacerbation continue IV Solu-Medrol, DuoNebs UTI urine culture growing klebsiella Continue IV Ceftriaxone, started 06/12, end date 06/16 hypomagnesemia, hypokalemia improved with replacement follow levels abdominal pain. resolved. reporting blood on toilet paper not mixed with stool. stool occult negative. resolved. CT of abdomen/pelvis negative for infectious process. liver nodules chronic - outpatient follow up H/H stable ?r/t etoh gastritis -continue ppi, transition to po ?CHF Elevated BNP, lower leg edema, no JVD Pt given Lasix IV in ED ECHO pending liver cirrhosis with esophageal varices with chronic pancytopenia no abdominal ascites chronic microcytic anemia H/H stable no evidence of acute blood loss above transfusion threshold hypernatremia sodium 150 on admission resolved Morbid obesity BMI 40.7 weight loss encouraged DNR/DNI Attending:?Dr. Villela DVT Prophylaxis: Pneumatic boots Requires ongoing inpatient hospitalization for treatment of?alcohol withdrawal, COPD exacerbation, and UTI IV antibiotics, phenobarb, and steroids. Time Spent With Patient Time: Total time managing care of this patient today ____ minutes. Quality Stroke Does the patient have a stroke diagnosis?: No VTE Prior VTE?: No VTE Risk Level:: Medical - moderate - high VTE Device Contraindication: N/A - Device Ordered VTE Drug Contraindication: Treatment Not Indicated
[2022-06-15] MEDS: Folic Acid 1 MG TABLET PO (10:42)
[2022-06-15] MEDS: PHENobarbitaL 15 MG TABLET PO ×3 (10:42→21:03)
[2022-06-15] MEDS: methylPREDNISolone Sod Succ 40 MG/ML VIAL IVPUSH ×2 (10:42→20:27)
[2022-06-15] MEDS: Multivitamin TABLET 1 TAB PO (10:42)
[2022-06-15] MEDS: Butalb/Acetamin/Caff 50/325/40 TABLET 1 TAB PO (10:42)
[2022-06-15] MEDS: Thiamine HCL 100 MG TABLET PO (10:43)
[2022-06-15] MEDS: 0.9 % Sodium Chloride Flush 3 ML SYRINGE IVFLUSH ×3 (10:43→20:29)
[2022-06-15 12:00] VITALS: BP 125/64; PULSE 77; RESP 20; TEMP 36.9; O2SAT 96
--- NOTE | 2022-06-15 12:23 | P.EN_ITS ---
Event Note Date of Service: 06/15/22 Event Note: Addiction consult Please see senior informatica etl developer note dated 06/15/22 Dougie started Needs follow up appt scheduled prior to discharge with [facility] Time Spent With Patient Time: Total time managing care of this patient today ____ minutes.
[2022-06-15 15:21] VITALS: BP 126/60; PULSE 85; RESP 20; TEMP 37; O2SAT 95
[2022-06-15] MEDS: Acamprosate Calcium 333 MG TABLET.DR 666 MG PO ×2 (15:42→20:27)
[2022-06-15 19:17] VITALS: BP 116/62; PULSE 88; RESP 20; TEMP 37.1; O2SAT 96
[2022-06-15] MEDS: cefTRIAXone sodium 1 GM in 0.9 % Sodium Chloride 50 ML IV (20:32)
[2022-06-16] VITALS: BP 140/62; PULSE 86; RESP 20; TEMP 36.7; O2SAT 96
[2022-06-16 03:49] VITALS: BP 127/58; PULSE 80; RESP 20; TEMP 36.2; O2SAT 97
[2022-06-16] MEDS: Omeprazole 40 MG CAPSULE.DR PO (06:30)
[2022-06-16 08:00] VITALS: BP 147/73; PULSE 84; RESP 20; TEMP 37.2; O2SAT 95
[2022-06-16] MEDS: PHENobarbitaL 15 MG TABLET PO (09:01)
[2022-06-16] MEDS: Acamprosate Calcium 333 MG TABLET.DR 666 MG PO (09:02)
[2022-06-16] MEDS: methylPREDNISolone Sod Succ 40 MG/ML VIAL IVPUSH (09:03)
[2022-06-16] MEDS: 0.9 % Sodium Chloride Flush 3 ML SYRINGE IVFLUSH (09:03)
--- NOTE | 2022-06-16 10:40 | P.DS_ITS ---
DS: Providers Provider Date of Service: 06/16/22 Date of admission: 06/12/22 21:51 Primary care physician: NEVILLE Garrison Consults: 06/12/22 22:09 Addiction Medicine Routine Consulting Provider: Jim Hunt Reason for consultation: Alcohol withdrawal DS: Diagnosis Discharge Diagnosis (1) UTI (urinary tract infection): Status: Acute (2) COPD (chronic obstructive pulmonary disease): Status: Acute DS: Summary Hospital Course Hospital Course: HP as per admitting provider Pt is a 57-year-old female with a PMH significant for?alcohol use disorder with alcoholic cirrhosis, mood disorder, HTN, COPD, and history of GI bleeding who presents to the ED with?shortness of breath and withdrawing from alcohol.? Patient states that her symptoms began a few weeks ago when she developed shortness of breath and cough.? Has been having a central chest tightness with inspiration that radiates to the back.? Patient has been noncompliant with her home medications, including her inhalers for COPD, for the past 6 months.? Patient notes that she cannot use inhalers because they make her vomit. Pt has been drinking around 1 pt peppermint schnapps daily with her last drink yesterday evening.? Has had tremors since earlier today.? Patient states she has has a history of withdrawal seizures, but never has had auditory or visual hallucinations.? Patient has been lightheaded, dizzy, and not eating much at all.? Denies fever but has had chills, and been depressed and anxious lately.? Also complains of nausea and vomiting clear liquid.? Denies hemat emesis.? Patient states she has had chronic bloody diarrhea on and off the past couple of years, which has been particularly bad the past few days.? Complains also of right sided abdominal pain.? Patient also endorses dysuria.In the ED patient was afebrile, tachycardic up to 108, satting at 95% on RA. Labs were significant for WBC of 3.6, H&H of 8.7/30.2 (at baseline), sodium of 150, carbon dioxide 35, magnesium of 1.6, BNP 173.? UA positive for UTI.? Ethyl alcohol level of 407. VBG with HC03 of 38. CXR showed no acute cardiopulmonary process. EKG demonstrated normal sinus rhythm with no evidence of ST elevations or depressions. Pt was treated with DuoNebs, furosemide, ceftriaxone, Solu-Medrol, and started on phenobarb protocol. Pt will be admitted to the hospital for treatment and further evaluation of acute COPD exacerbation, UTI, and alcohol withdrawal . Acute alcohol withdrawal. resolved. Treated with phenobarbital, multivitamin, folic acid and thiamine. Seen and evaluated by addiction medicine. Started on Campral. Encouraged to stop drinking alcohol. Acute COPD exacerbation. Treated with IV Solu-Medrol and DuoNebs. No hypoxia. Resolved UTI urine culture growing klebsiella Treated with IV ceftriaxone. Continue Ceftin for a total of 7 days hypomagnesemia, hypokalemia improved with replacement abdominal pain. resolved. reporting blood on toilet paper not mixed with stool. stool occult negative. resolved. CT of abdomen/pelvis negative for infectious process. liver nodules chronic - outpatient follow up H/H stable, treated with PPI liver cirrhosis with esophageal varices. Chronic pancytopenia No acute bleeding chronic microcytic anemia with stable H&H hypernatremia. Resolved Morbid obesity Discussed importance of weight management as this may be contributing to worsening of other comorbidities Time Spent with Patient Time attestation: Total time managing care of this patient today ____ minutes. Discharge coordination time: Greater than 30 minutes Quality: Safe Use of Opioids Does Pt have an Active Cancer Diagnosis on the Problem List?: No Quality: Stroke Does the patient have a stroke diagnosis?: No Physical Exam Vital Signs: Vital Signs: Last Vital Signs Temp 98.9 F 06/16/22 08:00 Pulse 84 06/16/22 08:00 Resp 20 06/16/22 08:00 BP 147/73 H 06/16/22 08:00 Pulse Ox 95 06/16/22 08:00 O2 Del Method Room Air 06/16/22 08:00 O2 Flow Rate 1.5 06/12/22 16:30 Oxygen Flow Rate 1 06/12/22 14:07 BMI result Body Mass Index 40.7 Appearing in no acute distress head is normocephalic atraumatic eyes pupils are PERRLA sclera is anicteric mouth throat mucous membranes are intact and moist neck is supple no lymphadenopathy, no JVD noted lung sounds are clear to auscultation heart regular rate rhythm, clear S1, S2 positive bowel sounds, abdomen is soft, nontender neuro patient is alert x3, no focal deficits DS: Data Data Completed and Pending Completed studies during hospitalization [Text1]: Procedures Detoxification Services for Substance Abuse Treatment (04/13/22) Inspection of Upper Intestinal Tract, Via Natural or Artificial Opening Endoscopic (04/13/22) Labs on day of discharge: Preliminary micro results at discharge 06/12/22 15:40 Blood Culture - Preliminary Blood - Venous No growth after 48 hours. 06/12/22 14:24 Blood Culture - Preliminary Blood - Venous No growth after 48 hours. Discharge Plan Discharge Anticipated Discharge Date/Time: 06/16/22 09:47 Patient Disposition: Home, Self-Care Discharge Diagnosis: COPD exacerbation UTI ETOH withdrawal Discharge Medications: New cefuroxime axetil 500 mg tablet 500 mg PO BID Qty: 8 0RF Continued thiamine HCl (vitamin B1) [Vitamin B-1] 100 mg Tablet 100 mg PO DAILY multivitamin with folic acid [Daily-Nguyen (with folic acid)] 400 mcg tablet 1 tab PO DAILY Discharge Orders: Discharge Order (Routine); Ordered 06/16/22 Ordered By: Priscila Lr Diet: Advance to usual diet Activity on Discharge: As tolerated Stand Alone Forms: Patient Portal Discharge page Care Plan Goals: Reach out for community supports for housing placement Health Concerns: COPD exacerbation UTI Alcohol withdrawal Plan of Treatment: Follow-up with primary care provider as needed Take all medications as prescribed Assessment: See discharge summary
--- NOTE | 2022-06-16 11:32 | MHC.CM.PN ---
Addendum entered by Celestina Mark, RN 06/16/22 12:17: CM MET W/PT WITH TIME/DATE OF [facility] APPT 06/18 AT 2:15PM, PT REPORTS SHE DOES NOT HAVE RIDE AND LYFT ARRANGED FOR 1PM. Original Note: PT MEDICALLY CLEARED FOR D/C HOME NO SERVICES, PER RECOVERY NURSE [facility] WILL CONTACT PT W/APPT FOR CAMPRAL, PT'S BF FOR TRANSPORT
== END 2022-06-16 13:15 | disposition home or self-care (01) | DRG 190 ==
LOC: HO.ED 17:16 → HO.EDOVER 22:04 → HO.IMC 23:17
PROVIDERS: Physician Assistant; Physician Assistant Medical; Admitting Provider Student in an Organized Health Care Education/Training Program; Emergency Provider Student in an Organized Health Care Education/Training Program; PCP Nurse Practitioner Family; Visit Provider Nurse Practitioner Acute Care
DX: J44.1 Chronic obstructive pulmonary disease with (acute) exacerbation (principal); K29.21 Alcoholic gastritis with bleeding; F10.239 Alcohol dependence with withdrawal, unspecified; F33.9 Major depressive disorder, recurrent, unspecified; N39.0 Urinary tract infection, site not specified; D61.818 Other pancytopenia; I85.10 Secondary esophageal varices without bleeding; E87.0 Hyperosmolality and hypernatremia; Z68.41 Body mass index [BMI] 40.0-44.9, adult; Z66 Do not resuscitate; K70.30 Alcoholic cirrhosis of liver without ascites; F41.9 Anxiety disorder, unspecified; E87.6 Hypokalemia; I11.0 Hypertensive heart disease with heart failure; I50.9 Heart failure, unspecified; E66.01 Morbid (severe) obesity due to excess calories; E83.42 Hypomagnesemia; Z71.3 Dietary counseling and surveillance; Y90.8 Blood alcohol level of 240 mg/100 ml or more; D50.9 Iron deficiency anemia, unspecified; F10.229 Alcohol dependence with intoxication, unspecified; B96.1 Klebsiella pneumoniae [K. pneumoniae] as the cause of diseases classified elsewhere; Z20.822 Contact with and (suspected) exposure to COVID-19; Z91.148 Patient's other noncompliance with medication regimen for other reason; Z87.891 Personal history of nicotine dependence; Z88.0 Allergy status to penicillin; Z88.2 Allergy status to sulfonamides; Z79.899 Other long term (current) drug therapy
CPT/HCPCS: 36415; 71046; 74176; 80048; 80076; 81001; 81003; 82077; 82272; 82803; 83605; 83735; 83880; 84484; 85025; 85027; 87040; 87086; 87088; 87186; 87635; 93005; 93306; 94640; 99285; J0696; J1940; J2405; J2560; J2920; J2930; J3475; Q9957

== ENCOUNTER 2022-06-28 22:35 | Emergency (ER) | payer OTHER, SELFPAY ==
--- NOTE | ~2022-06-28 | XR_ITS ---
EXAMINATION: XR CHEST CLINICAL INFORMATION: Acute on chronic dyspnea COMPARISON: 06/12/2022 TECHNIQUE: 2 views of the chest were obtained. FINDINGS: Lung volumes are symmetric. No focal consolidation is seen. No evidence of pneumothorax, pleural effusion, or overt pulmonary edema. Mild prominence of the central vasculature is similar to prior. The cardiomediastinal contour is unremarkable. No acute osseous findings are seen. XR/XR chest 2V IMPRESSION: No acute cardiopulmonary findings.
[2022-06-28 22:53] VITALS: BP 140/74; PULSE 81; O2SAT 98
[2022-06-28 23:07] VITALS: BP 113/59; PULSE 75; RESP 19; TEMP 36.3; O2SAT 98; BMI 30.2
[2022-06-29] VITALS (8 sets, daily range): BP systolic 111–147; BP diastolic 55–80; PULSE 76–100; RESP 14–20; TEMP 36.8–36.9; O2SAT 94–99
--- NOTE | 2022-06-29 01:27 | PC.NURSE ---
this rn assisted pt in using bed garcia per pt request. per pt did not want to ambulate to rest room, pt stated I want to rest my legs . pt cleaned up and pt boosted up in bed. lights dimmed. per pt no new needs at this time. pt awaiting to be seen by ed provider
--- NOTE | 2022-06-29 01:43 | ECG_ITS ---
Test Reason : CHEST PAIN Blood Pressure : / mmHG Vent. Rate : 080 BPM Atrial Rate : 080 BPM P-R Int : 140 ms QRS Dur : 080 ms QT Int : 400 ms P-R-T Axes : 069 032 056 degrees QTc Int : 461 ms Normal sinus rhythm Normal ECG When compared with ECG of 12-JUN-2022 14:14, Criteria for Septal infarct are no longer Present Referred By: Nickolas Awad Electronically Signed By:KIRILL PUTNAM
[2022-06-29] MEDS: Albuterol Sulfate (0.083%) 2.5 MG/3 ML VIAL.NEB INHALE (01:59)
[2022-06-29] MEDS: Gabapentin 300 MG CAPSULE PO (02:03)
[2022-06-29] MEDS: Acetaminophen 325 MG TABLET 975 MG PO (02:03)
[2022-06-29] MEDS: dexAMETHasone 4 MG TABLET PO (02:03)
--- NOTE | 2022-06-29 02:07 | ED_ITS ---
HPI - General Adult General Chief complaint: Weakness Stated complaint: DIFF WALKING, H/O COPD 97% PER EMS Time Seen by Provider: 06/29/22 00:55 Source: patient Mode of arrival: ambulatory Limitations: no limitations History of Present Illness HPI narrative: 57-year-old female with history of COPD, chronic pain syndrome, homelessness presents with shortness of breath and musculoskeletal pain. Patient reports hav ing walked around the city for the past several days. She reports musculoskeletal pain in multiple joints in areas of her body which is not unusual for her. She reports the pain is moderate to severe. Worse with her ambulation. She is not taking any medications for her pain. She used to be on gabapentin. Additionally, patient complains of shortness of breath. The shortness of breath is worse with exertion. She describes as moderate to severe. She denies any cough or mucus production. She describes wheezing. She believes she is having COPD exacerbation. Patient was seen yesterday at [facility]. They did laboratory work and found her to have some abnormalities but she is not sure what they were. Patient denies any chest pain, mucus production, fevers, chills, sweats, lower extremity edema. Patient denies taking any medications at this time. She is taking multiple medication including for anxiety, depression, COPD, gabapentin. Related Data Home Medications Medication Instructions Recorded Confirmed multivitamin with folic acid 400 1 tab PO DAILY 06/12/22 06/29/22 mcg tablet (Daily-Nguyen (with folic acid)) thiamine HCl (vitamin B1) 100 mg 100 mg PO DAILY 06/12/22 06/29/22 tablet (Vitamin B-1) Zoloft 06/29/22 acamprosate 333 mg tablet,delayed 333 mg PO TID 06/29/22 06/29/22 release acetaminophen 500 mg tablet 1,000 mg PO Q6H PRN Pain 06/29/22 06/29/22 calcium carbonate 500 mg calcium 1,000 mg PO DAILY PRN Heartburn 06/29/22 06/29/22 (1,250 mg) chewable tablet diazepam 5 mg tablet 5 mg PO DAILY 06/29/22 06/29/22 diazepam 5 mg tablet 5 mg PO Q12H 06/29/22 06/29/22 diazepam 5 mg tablet 5 mg PO Q6H 06/29/22 06/29/22 diazepam 5 mg tablet 5 mg PO Q8H 06/29/22 06/29/22 gabapentin 100 mg capsule 200 mg PO BID 06/29/22 ibuprofen 200 mg tablet 400 mg PO Q8H PRN Pain 06/29/22 06/29/22 prednisone 20 mg tablet 40 mg PO DAILY 06/29/22 06/29/22 Allergies Allergy/AdvReac Type Severity Reaction Status Date / Time Penicillins Allergy Mild Rash Verified 04/14/22 19:46 levofloxacin [From Levaquin] AdvReac Severe Difficulty Verified 04/15/22 11:40 Breathing peanut AdvReac Severe Anaphylaxis Verified 05/04/22 00:26 Peanut Butter AdvReac Severe Anaphylaxis Verified 04/15/22 11:40 Sulfa (Sulfonamide AdvReac Severe Difficulty Verified 04/15/22 11:40 Antibiotics) Breathing PMFSH Past Medical History Medical History Alcohol abuse with withdrawal Alcohol use disorder, severe, dependence Alcoholic cirrhosis of liver Anxiety Cirrhosis of liver COPD (chronic obstructive pulmonary disease) Depression Hypertension MDD (major depressive disorder), recurrent episode, moderate Surgical History H/O foot surgery Family History Family History Mother Pancreatic cancer Social History Social History Household Members: Significant Other Household Members Other:: boyfriend Housing: Homeless Do you presently have visiting nurse or other home services: No Alcohol intake: current Alcohol intake frequency: 0-2 drinks per day Alcohol type: hard liquor Patient Tobacco Use Status: Former Tobacco user Smoked in Last 30 Days: No Use of substances other than those prescribed or required for medical reasons: No Substance Use Type: Marijuana Advance Directives: Yes Advance Directives on File: Yes Advance Directives Date on File: 03/11/21 Patient : No service: No Current occupational status: unemployed Physical Exam ED Vital Signs: Vital Signs - 24 hr 06/28/22 23:07 06/29/22 00:27 06/29/22 03:34 Temperature 97.4 F 98.2 F Pulse Rate 75 76 81 Respiratory Rate 19 20 20 Blood Pressure 113/59 L 127/58 L 116/55 L Pulse Oximetry 98 99 94 Oxygen Delivery Method Room Air Room Air Room Air 06/29/22 02:30 06/29/22 05:34 06/29/22 10:14 Temperature 98.2 F Pulse Rate 81 85 100 Respiratory Rate 20 14 16 Blood Pressure 126/80 147/77 H 117/59 L Pulse Oximetry 95 94 95 Oxygen Delivery Method Room Air Room Air Room Air 06/29/22 17:42 06/29/22 18:03 Temperature 98.4 F Pulse Rate 83 84 Respiratory Rate 17 14 Blood Pressure 111/56 L 116/62 Pulse Oximetry 97 97 Oxygen Delivery Method Room Air Room Air BMI result Body Mass Index 30.2 GEN: Well developed, no acute distress, alert, oriented HEENT: Normocephalic, atraumatic, normal external ears, nose appears normal, no oropharyngeal edema or exudates Eyes: Normal to appearance Neck: Supple, no lymphadenopathy Respiratory: Talks in complete sentences, no respiratory distress, wheezing appreciated the right lung base, no crackles or rales Cardiovascular: Regular rate and rhythm, no murmurs rubs or gallops Abdomen: Soft, nontender, nondistended, no guarding, no rebound Back: No CVA tenderness Extremities: No clubbing cyanosis or edema Neurologic: No focal neurologic deficits, cranial nerves 2-12 intact, strength is 5/5 bilaterally Skin: No rash Course Course Course Narrative: 57-year-old female, homeless, COPD presents with shortness of breath and musculoskeletal pain. The musculoskeletal pain appears to be related to being homeless and ambulating with significant part of the day. I will treat the patient with Tylenol and gabapentin. There have been no recent falls or injuries. There are no met skeletal deformities. There is no acute arthritic disease. There is no indication for emergent imaging. Patient also complains of shortness of breath. She had wheezing at the right lung base. Will obtain a chest x-ray to rule out pneumonia. Will check laboratory analysis given recently reported abnormalities at [facility]. Will provide her with an albuterol treatment and steroids. Reevaluation(s) Reevaluation #1: Labs demonstrate pancytopenia which appears to be mostly stable. She also has stable hypocalcemia. Chest x-ray reveals no acute cardiopulmonary disease. Wi ll re-evaluate patient. Patient likely can be discharged shortly. Medications Administered Discontinued Medications Generic Name Dose Route Start Last Admin Trade Name Freq PRN Reason Stop Dose Admin Acetaminophen 975 mg 06/29/22 01:43 06/29/22 02:03 Acetaminophen 325 Mg Tablet PO 06/29/22 01:44 975 mg ONCE ONE Administration Albuterol Sulfate 2.5 mg 06/29/22 01:43 06/29/22 01:59 Albuterol Sulfate (0.083%) 2.5 Mg/3 Ml Vial.Neb INHALE 06/29/22 01:44 2.5 mg ONCE ONE Administration Dexamethasone 4 mg 06/29/22 01:43 06/29/22 02:03 Dexamethasone 4 Mg Tablet PO 06/29/22 01:44 4 mg ONCE ONE Administration Gabapentin 300 mg 06/29/22 01:43 06/29/22 02:03 Gabapentin 300 Mg Capsule PO 06/29/22 01:44 300 mg ONCE ONE Administration Medical Decision Making Medical Decision Making [facility] Narrative: 57-year-old female presents with complains of shortness of breath and muscu loskeletal pain. Regarding the shortness of breath, patient has history of COPD. She did have wheezing at the right lung base. Differential diagnosis could include pneumonia, bronchitis, COPD exacerbation, asthma, CHF, pleural effusion. Will obtain a chest x-ray, treat symptomatically with albuterol and steroids. Patient also complains of musculoskeletal pain. This is most likely strain, sprain, spasm due to ambulation throughout the day and her homelessness. There is no indication for emergent imaging at this time. Differential Diagnosis Differential Diagnoses: The differential diagnosis associated with the presentation includes (See above) Admission/Observation Consideration of admission/observation: Escalation of care including admission/observation considered Lab Data [facility] Lab Attestation statement: I reviewed the patient's lab results. 06/29/22 02:15 06/29/22 02:15 Labs: Lab Results 06/29/22 06/29/22 06/29/22 Range/Units 02:15 02:15 02:15 WBC 4.3 L (4.8-10.8) X10*3/uL RBC 3.72 L (4.20-5.50) X10*6/uL Hgb 8.0 L (12.0-16.0) g/dl Hct 27.7 L (37.0-47.0) % MCV 74.5 L (80.0-98.0) fL MCH 21.5 L (27.0-33.0) pg MCHC 28.9 L (31.0-35.0) g/dl RDW 20.8 H (11.0-16.0) % Plt Count 50 L D (160-400) X10*3/uL MPV Not Reportable Immature Gran % (Auto) 0.5 H (0.0-0.4) % Neut % (Auto) 61.7 (45-73) % Lymph % (Auto) 19.5 L (20-40) % Ceiba % (Auto) 13.8 H (2-11) % Eos % (Auto) 3.3 (0-4) % Baso % (Auto) 1.2 (0-2) % Lymph # (Auto) 0.8 L (1.2-4.9) X10*3/uL Ceiba # (Auto) 0.6 (0.1-1.2) X10*3/uL Eos # (Auto) 0.1 (0.0-0.4) X10*3/uL Baso # (Auto) 0.1 (0.0-0.2) X10*3/uL Abs Immat Gran (auto) 0.02 (0.00-0.03) X10*3/uL Absolute Neuts (auto) 2.6 (2.0-8.3) x10*3/uL Absolute Nucleated RBC 0.000 (0.0-0.012) X10*3/uL Nucleated RBC % (auto) 0.0 (0.0-0.2) /100WBC Sodium 139 (135-145) mmol/L Potassium 3.7 (3.3-5.1) mmol/L Chloride 104 (96-108) mmol/L Carbon Dioxide 26 (22-29) mmol/L Anion Gap 13 (12-20) BUN 7 L (9-16) mg/dL Creatinine 0.61 (0.5-1.4) mg/dL Estim Creat Clear Calc 83.2 Estimated GFR > 60 Random Glucose 84 (60-115) mg/dL Calcium 8.3 L (8.4-10.2) mg/dL Troponin I High Sens 2.8 (<3.5-17.0) ng/L Independent Interpretation I performed an independent interpretation of an: EKG (Normal sinus rhythm heart rate 80, no acute ST elevations depressions, nonspecific T-wave changes) and Plain X-Ray (No acute cardiopulmonary disease) Prescription Management I considered prescription management with: Pain Medication and Antibiotic Social Determinants Patient?s care significantly limited by Social Determinants of Health including: Inadequate housing Discharge Plan Discharge Clinical Impression: Musculoskeletal pain, COPD exacerbation, Acquired pancytopenia, Hypocalcemia Patient Disposition: Still a Patient Instructions: COPD (Chronic Obstructive Pulmonary Disease) (ED), Musculoskeletal Pain (ED) Prescriptions: No Action thiamine HCl (vitamin B1) [Vitamin B-1] 100 mg Tablet 100 mg PO DAILY multivitamin with folic acid [Daily-Nguyen (with folic acid)] 400 mcg tablet 1 tab PO DAILY Zoloft gabapentin 100 mg Capsule 200 mg PO BID prednisone 20 mg tablet 40 mg PO DAILY Rx Instructions: FOR 5 DAYS; NOT PICKED UP AT PHARMACY acetaminophen 500 mg Tablet 1,000 mg PO Q6H PRN (Reason: Pain) ibuprofen 200 mg Tablet 400 mg PO Q8H PRN (Reason: Pain) calcium carbonate [Tums 500] 500 mg calcium (1,250 mg) Tablet,Chewable 1,000 mg PO DAILY PRN (Reason: Heartburn) diazepam 5 mg tablet 5 mg PO Q6H Rx Instructions: FOR DAY 1; NOT PICKED UP AT PHARMACY diazepam 5 mg tablet 5 mg PO Q8H Rx Instructions: FOR DAY 2; NOT PICKED UP AT PHARMACY diazepam 5 mg tablet 5 mg PO Q12H Rx Instructions: FOR DAY 3; NOT PICKED UP AT PHARMACY diazepam 5 mg tablet 5 mg PO DAILY Rx Instructions: DAY 4; NOT PICKED UP AT PHARMACY acamprosate 333 mg tablet,delayed release (DR/EC) 333 mg PO TID Rx Instructions: STARTING ON 07/02/22; NOT PICKED UP AT PHARMACY Referrals: Yahaira Dove FNP [Primary Care Provider] - 2 days
[2022-06-29 02:23] LABS: Basophils Absolute Auto 0.1 X10*3/uL (0.0-0.2); Basophils Percent Auto 1.2 % (0-2); Eosinophils Absolute Auto 0.1 X10*3/uL (0.0-0.4); Eosinophils Percent Auto 3.3 % (0-4); PLT ABN DIST 1; SCAN SMEAR FLAG 1
[2022-06-29 02:25] LABS: Hematocrit 27.7 % (37.0-47.0); Imm Gran Abs Auto 0.02 X10*3/uL (0.00-0.03); Imm Gran Pct Auto 0.5 % (0.0-0.4); Lymphocytes Absolute Auto 0.8 X10*3/uL (1.2-4.9); Lymphocytes Percent Auto 19.5 % (20-40); Mean Corpuscular HGB Conc 28.9 g/dl (31.0-35.0); Mean Corpuscular Hemoglobin 21.5 pg (27.0-33.0); Mean Corpuscular Volume 74.5 fL (80.0-98.0); Monocytes Absolute Auto 0.6 X10*3/uL (0.1-1.2); Monocytes Percent Auto 13.8 % (2-11); Neutrophils Absolute Auto 2.6 x10*3/uL (2.0-8.3); Neutrophils Percent Auto 61.7 % (45-73); Red Blood Count 3.72 X10*6/uL (4.20-5.50); Red Cell Distribution Width 20.8 % (11.0-16.0); White Blood Count 4.3 X10*3/uL (4.8-10.8)
[2022-06-29 02:26] LABS: MANUAL DIFF FLAG NO
[2022-06-29 02:36] LABS: Anion Gap 13 (12-20); Blood Urea Nitrogen 7 mg/dL (9-16); Calcium 8.3 mg/dL (8.4-10.2); Carbon Dioxide 26 mmol/L (22-29); Chloride 104 mmol/L (96-108); Creatinine Clr Calc Pharmacy 83.2; Estimated Glomerular Filt Rate > 60; Glucose Random 84 mg/dL (60-115); Potassium 3.7 mmol/L (3.3-5.1); Sodium 139 mmol/L (135-145)
[2022-06-29 02:40] LABS: Platelet Count 50 X10*3/uL (160-400)
[2022-06-29 02:44] LABS: Troponin-I High Sensitivity 2.8 ng/L (<3.5-17.0)
--- NOTE | 2022-06-29 07:09 | PC.NURSE ---
Pt currently resting in bed, awaiting to be seen by a provider for further orders. She is resting comfortably at this time. Will await for further orders.
--- NOTE | 2022-06-29 09:56 | MHC.EDTECH ---
Assisted Carrie in cleaning patient, changing bedding and gown. Anayeli Hayes
--- NOTE | 2022-06-29 13:30 | PHA.MEDREC ---
Addendum entered by Ailyn Suero RPh 06/29/22 13:43: abel reviewed med rec Original Note: Pharmacy Consult ? Medication Reconciliation Pharmacy has completed the medication reconciliation. Patient poor historian and admits to non-adherence to medications. Patient states that they take Zoloft of an unknown dose and gabapentin of an unknown dose. Called multiple pharmacies ([facility], [facility], [facility]) that patient suggested to call to confirm dosages on medications, but pharmacies state that the patient hasn't filled with them since January 2022 at the earliest. PDMP states that patient had been regularly filling gabapentin 100mg (total daily dose 400mg) from 12/13/21-04/02/22, and has not filled the medication since 04/25/22 (7 day supply). Patient's sertraline dose cannot be confirmed, outside of a 50mg daily dose from 2019 per [facility] pharmacy. Patient also had not picked up their diazepam taper, acamprosate, or prednisone from [facility] pharmacy, but the meds were confirmed by pharmacy and patient. Acamprosate is scheduled to start on 07/02/22.
--- NOTE | 2022-06-29 13:45 | MHC.CM.ED ---
Received consult for assessment of d/c needs: pt known to CM from previous admissions/visits: Pt presented to ED from 'streets' complaining of n/v and inability to tolerate po. States she hasn't taken her medications and would like STR placement for assistance with ambulation and med management. Pt states she is homeless and living out of a vehicle in [place] with her spouse. Prior to that, both were living in a hotel but d/t the expense, relocated to the vehicle. Pt does not know where her spouse is and states she cannot contact him or his friends. Pt eating lunch during CM assessment without complaint and stated her legs have been tired as she has been walking more in the community. offered pt long-term placement to which she declined, I'm not able to walk properly and I am having trouble eating so I'd like rehab. PT eval cannot take place until 06/30: pt aware and will board until assessment. STR referrals placed.
--- NOTE | 2022-06-29 20:25 | PC.NURSE ---
I resumed care of the pt at 1900. Pt is resting quietly in bed. Reported she wet herself in bed because she could not make it to the commode on her own. Pt was cleaned and a purewick was placed. Pt is asking for her regular medications.Med rec was done during the daytime.
[2022-06-29] MEDS: diazePAM 5 MG TABLET PO (22:14)
[2022-06-30] VITALS (7 sets, daily range): BP systolic 98–145; BP diastolic 44–61; PULSE 74–86; RESP 12–18; TEMP 36.6–37.7; O2SAT 93–98
--- NOTE | 2022-06-30 02:36 | PC.NURSE ---
Pt asleep at this time, resting comfortably in bed. Pt has been cleaned and repositioned prior to falling asleep.
[2022-06-30] MEDS: Thiamine HCL 100 MG TABLET PO (08:45)
--- NOTE | 2022-06-30 08:45 | PC.NURSE ---
PT at the bedside
[2022-06-30] MEDS: Multivitamin TABLET 1 TAB PO (08:47)
[2022-06-30] MEDS: predniSONE 20 MG TABLET 40 MG PO (08:47)
[2022-06-30 09:25] LABS: COVID-19 Test Negative (Negative); IDNOW Serial# 9DB6401D
--- NOTE | 2022-06-30 12:00 | PC.NURSE ---
Patient called for nurse stating that she wants to know where the rest of her medications are. This nurse checked the chart and noted that patient received medications this morning and relayed this information to patient but she states that she didn't get everything. When asked what was missing patient states I don't know I don't have my list with me. Med rec noted to be completed on 06/29. Spoke with PA who recommended another med rec as there are multiple orders for the same medication in the computer at this time.
--- NOTE | 2022-06-30 12:10 | MHC.CM.ED ---
Addendum entered by Belén Hall 06/30/22 14:23: No bed offers at this time. Referral broadcasted within 50 miles to all facilities contracted with [facility]. Original Note: Patient remains in ER. Physical therapy eval completed. Outpatient therapy is recommended. Patient has [facility], which has a senior care benefit. Referral broadcasted to all facilities within 25 miles that are contracted with patient's insurance. Received 3 Pfizer vaccines. Covid swab is negative. Continue to monitor for d/c needs.
[2022-06-30] MEDS: Acetaminophen 325 MG TABLET 975 MG PO (15:11)
--- NOTE | 2022-06-30 16:00 | MHC.EDTECH ---
THIS PCT ASSUMED CARE OF PT AT 1515 ,PT WAS ASSISTED UNTO BEDSIDE COMMODE ,PT VOID LG AMOUNT OF URINE ,BACH TO BED ,VITALS SIGN TAKEN ,OFFER SNACK ,BUT PT REFUSED ,PT WATCHING TELEVISION .
--- NOTE | 2022-06-30 18:44 | MHC.CM.ED ---
Addendum entered by Amanda Sung 06/30/22 18:46: Met with patient again to discuss discharge planning at 1815. Pt was unable to reach her boyfriend, but has decided [facility]. Pt aware that a PASRR must be completed with the state and she may not be ready for discharge until Thursday pending PASRR approval. PASRR completed and filed. Bed acceptance updated in Care Port. RN in overflow aware. CM following for discharge planning. Original Note: Met with patient at 1630 to discuss longterm care at [facility]. Pt was unsure and wanted to speak with significant other. Will return to discuss discharge planning with patient.
--- NOTE | 2022-06-30 18:59 | MHC.CM.ED ---
PT is recommending outpatient PT, not inpatient. Pt is homeless and has been living in her car.. Pt has a long standing hx of alcohol misuse. Pt does not have a safe discharge secondary to homelessness. Patient needs medication management and has been approved for fdc care from [facility]. Pt is agreeable to discharge to [facility] in [place], [place]. PASRR completed and faxed. [facility] aware of bed acceptance. CM will follow for discharge planning, pending PASRR exemption letter.
[2022-06-30] MEDS: diazePAM 5 MG TABLET PO (21:17)
--- NOTE | 2022-07-01 04:03 | PC.NURSE ---
Assumed care for pt. Pt sleeping at the bedside. Breaths are even regular unlabored with equal chest rises. No apparent distress noted. Will continue to monitor.
[2022-07-01 06:00] VITALS: BP 126/53; PULSE 75; RESP 16; TEMP 36.6; O2SAT 95
[2022-07-01] MEDS: Thiamine HCL 100 MG TABLET PO (08:23)
[2022-07-01] MEDS: Multivitamin TABLET 1 TAB PO (08:23)
[2022-07-01] MEDS: diazePAM 5 MG TABLET PO (08:23)
[2022-07-01] MEDS: predniSONE 20 MG TABLET 40 MG PO (10:18)
--- NOTE | 2022-07-01 11:38 | MHC.EDTECH ---
Patient had a bed bath, changed gown and washed up.
[2022-07-01 13:57] VITALS: BP 148/74; PULSE 102; RESP 19; TEMP 36.4; O2SAT 95
[2022-07-01] MEDS: Acetaminophen 325 MG TABLET 975 MG PO (15:32)
== END 2022-07-01 15:46 | disposition skilled nursing facility (03) ==
PROVIDERS: Emergency Medicine; Physician Assistant; Emergency Provider Emergency Medicine Emergency Medical Services; PCP Nurse Practitioner Family
DX: J44.1 Chronic obstructive pulmonary disease with (acute) exacerbation (principal); D61.818 Other pancytopenia; R26.81 Unsteadiness on feet; E83.51 Hypocalcemia; R07.89 Other chest pain; R06.02 Shortness of breath; M79.10 Myalgia, unspecified site; Z20.822 Contact with and (suspected) exposure to COVID-19; Z20.828 Contact with and (suspected) exposure to other viral communicable diseases; Z79.899 Other long term (current) drug therapy
CPT/HCPCS: 36415; 71046; 80048; 84484; 85025; 87635; 93005; 97161; 99285; J8540

== ENCOUNTER 2022-08-16 23:35 | Emergency (ER) | payer OTHER, SELFPAY ==
--- NOTE | 2022-08-16 23:52 | ED_ITS ---
HPI - Alcohol General Chief Complaint: ETOH/Substance Use Stated Complaint: etoh Time Seen by Provider: 08/16/22 23:46 Source: patient and EMS Mode of arrival: EMS Limitations: no limitations History of Present Illness HPI narrative: 57-year-old female presents with alcohol intoxication. Patient admits drinking approximately 750 mL of peppermint schnapps per day. She denies any additional drug use. Last drink she reports 6 hours ago. She reports having some sort of interaction with her partner who ?pooped out on her. ? Patient denies any suicidal homicidal ideation. She reports to having a problem related to alcohol. Symptoms are exacerbated by drinking. They are improved by not drinking. She reportedly is homeless at this time. Current symptoms are moderate in nature. Related Data Home Medications Medication Instructions Recorded Confirmed multivitamin with folic acid 400 1 tab PO DAILY 06/12/22 06/29/22 mcg tablet (Daily-Nguyen (with folic acid)) thiamine HCl (vitamin B1) 100 mg 100 mg PO DAILY 06/12/22 06/29/22 tablet (Vitamin B-1) Zoloft 06/29/22 acamprosate 333 mg tablet,delayed 333 mg PO TID 06/29/22 06/29/22 release acetaminophen 500 mg tablet 1,000 mg PO Q6H PRN Pain 06/29/22 06/29/22 calcium carbonate 500 mg calcium 1,000 mg PO DAILY PRN Heartburn 06/29/22 06/29/22 (1,250 mg) chewable tablet diazepam 5 mg tablet 5 mg PO DAILY 06/29/22 06/29/22 diazepam 5 mg tablet 5 mg PO Q12H 06/29/22 06/29/22 diazepam 5 mg tablet 5 mg PO Q6H 06/29/22 06/29/22 diazepam 5 mg tablet 5 mg PO Q8H 06/29/22 06/29/22 gabapentin 100 mg capsule 200 mg PO BID 06/29/22 ibuprofen 200 mg tablet 400 mg PO Q8H PRN Pain 06/29/22 06/29/22 prednisone 20 mg tablet 40 mg PO DAILY 06/29/22 06/29/22 Allergies Allergy/AdvReac Type Severity Reaction Status Date / Time Penicillins Allergy Mild Rash Verified 04/14/22 19:46 levofloxacin [From Levaquin] AdvReac Severe Difficulty Verified 04/15/22 11:40 Breathing peanut AdvReac Severe Anaphylaxis Verified 05/04/22 00:26 Peanut Butter AdvReac Severe Anaphylaxis Verified 04/15/22 11:40 Sulfa (Sulfonamide AdvReac Severe Difficulty Verified 04/15/22 11:40 Antibiotics) Breathing Review of Systems Review of Systems: CONSTITUTIONAL: Denies weight loss, fever and chills. HEENT: Denies changes in vision and hearing. RESPIRATORY: Denies SOB and cough. CV: Denies palpitations no CP. GI: Denies abdominal pain, nausea, vomiting and diarrhea. : Denies dysuria and urinary frequency. MSK: + myalgia and joint pain. SKIN: Denies rash and pruritus. NEUROLOGICAL: Denies headache and syncope. PSYCHIATRIC: Denies recent changes in mood. Denies anxiety and depression. All other ROS are negative unless in HPI PMFSH Past Medical History Medical History Alcohol abuse with withdrawal Alcohol use disorder, severe, dependence Alcoholic cirrhosis of liver Anxiety Cirrhosis of liver COPD (chronic obstructive pulmonary disease) Depression Hypertension MDD (major depressive disorder), recurrent episode, moderate Surgical History H/O foot surgery Family History Family History Mother Pancreatic cancer Social History Social History Household Members: Significant Other Household Members Other:: boyfriend Housing: Homeless Do you presently have visiting nurse or other home services: No Alcohol intake: current Alcohol intake frequency: 3 or more drinks per day Alcohol type: hard liquor Patient Tobacco Use Status: Former Tobacco user Smoked in Last 30 Days: No Use of substances other than those prescribed or required for medical reasons: No Substance Use Type: Marijuana Advance Directives: Yes Advance Directives on File: Yes Advance Directives Date on File: 03/11/21 Patient : No service: No Current occupational status: unemployed Physical Exam ED Vital Signs: Vital Signs - 24 hr 08/16/22 23:56 08/16/22 23:59 08/17/22 03:42 Temperature 98.6 F 98.6 F 98.5 F Pulse Rate 91 91 88 Respiratory Rate 18 18 20 Blood Pressure 126/55 L 126/55 L 106/50 L Pulse Oximetry 95 95 92 Oxygen Delivery Method Room Air Room Air Room Air 08/17/22 05:56 Temperature Pulse Rate 76 Respiratory Rate 20 Blood Pressure 105/57 L Pulse Oximetry 94 Oxygen Delivery Method Room Air BMI result Body Mass Index 46.5 GEN: Well developed, no acute distress, alert, oriented, slurred speech HEENT: Normocephalic, atraumatic, normal external ears, nose appears normal, no oropharyngeal edema or exudates Eyes: Normal to appearance Neck: Supple, no lymphadenopathy Respiratory: Talks in complete sentences, no respiratory distress, clear to auscultation bilaterally Cardiovascular: Regular rate and rhythm, no murmurs rubs or gallops Abdomen: Soft, nontender, nondistended, no guarding, no rebound Back: No CVA tenderness Extremities: No clubbing cyanosis or edema Neurologic: No focal neurologic deficits, cranial nerves 2-12 intact, strength is 5/5 bilaterally Skin: No rash Course Course Course Narrative: Patient presents with chronic medical problems including homelessness with alcohol intoxication. Patient reports last drink approximately 6 hours ago. She denies any additional drug use. She denies suicidal homicidal ideation. She does have stressors including her partner as well as homelessness. Patient was recently discharged short-term rehabilitation. She said it did not go well. The patient is having routine laboratory analysis. Will re-evaluate patient to determine sobriety and if there are any other additional issues that require emergent correction Reevaluation(s) Reevaluation #1: Patient replaced in physician observation at this time pending sobriety and re- evaluation and appropriate medical management. Time: 00:01 Reevaluation #2: Patient is clinically sober. Discussed discharge with the patient. However, she has no shoes, all of her belongings are with her partner. She has no way of getting hold of this person. She says she can go to motel. However, she has no means of getting there. As such, will put in a case management consultation Time: 06:15 Reevaluation #3: Signed out to oncoming provider Time: 07:00 Medical Decision Making Medical Decision Making MDM Narrative: 57-year-old female presents with likely alcohol intoxication. Patient drinks about a 750 mL daily of 100 proof schnapps. She denies drug or alcohol abuse. She denies any suicidal homicidal ideation. She is homeless. Examination reveals intoxicated female, no acute distress. Will check laboratory analysis given her chronic medical problems as well as to assess her alcohol level. At this point, patient does not appear to warrant a care team evaluation. Will re- evaluate patient upon sobriety as well. Differential Diagnosis Differential Diagnoses: The differential diagnosis associated with the presentation includes (Drug abuse, alcohol intoxication, polysubstance abuse, psychiatric disorder) Admission/Observation Consideration of admission/observation: Escalation of care including admission/observation considered Lab Data MDM Lab Attestation statement: I reviewed the patient's lab results. 08/17/22 00:01 08/17/22 00:02 Labs: Lab Results 08/17/22 08/17/22 08/17/22 Range/Units 00:01 00:02 00:02 WBC 3.9 L (4.8-10.8) X10*3/uL RBC 4.25 (4.20-5.50) X10*6/uL Hgb 9.4 L (12.0-16.0) g/dl Hct 32.4 L (37.0-47.0) % MCV 76.2 L (80.0-98.0) fL MCH 22.1 L (27.0-33.0) pg MCHC 29.0 L (31.0-35.0) g/dl RDW 21.6 H (11.0-16.0) % Plt Count 76 L D (160-400) X10*3/uL MPV 10.3 (9.4-12.3) fL Immature Gran % (Auto) 0.5 H (0.0-0.4) % Neut % (Auto) 54.0 (45-73) % Lymph % (Auto) 18.4 L (20-40) % Stevens % (Auto) 24.3 H (2-11) % Eos % (Auto) 1.5 (0-4) % Baso % (Auto) 1.3 (0-2) % Lymph # (Auto) 0.7 L (1.2-4.9) X10*3/uL Stevens # (Auto) 1.0 (0.1-1.2) X10*3/uL Eos # (Auto) 0.1 (0.0-0.4) X10*3/uL Baso # (Auto) 0.1 (0.0-0.2) X10*3/uL Abs Immat Gran (auto) 0.02 (0.00-0.03) X10*3/uL Absolute Neuts (auto) 2.1 (2.0-8.3) x10*3/uL Absolute Nucleated RBC 0.000 (0.0-0.012) X10*3/uL Nucleated RBC % (auto) 0.0 (0.0-0.2) /100WBC Smear Tech's Comments VERIFIED Sodium 145 (135-145) mmol/L Potassium 2.9 L D (3.3-5.1) mmol/L Chloride 104 (96-108) mmol/L Carbon Dioxide 29 (22-29) mmol/L Anion Gap 15 (12-20) BUN 3 L (9-16) mg/dL Creatinine 0.62 (0.5-1.4) mg/dL Estim Creat Clear Calc 104.4 Estimated GFR > 60 Random Glucose 105 (60-115) mg/dL Calcium 8.2 L (8.4-10.2) mg/dL Total Bilirubin 1.8 H (0.0-1.0) mg/dL AST 43 H (5-31) U/L ALT 18 (0-31) U/L Alkaline Phosphatase 85 (39-117) U/L Total Protein 6.2 L (6.5-8.0) g/dL Albumin 3.3 L (3.5-5.0) g/dL Urine Color Urine Appearance Urine pH (5.0-9.0) Ur Specific Mcdermott (1.005-1.025) Urine Protein (Neg-Trace) mg/dL Urine Glucose (UA) (Negative) mg/dL Urine Ketones (Negative) mg/dL Urine Blood (Negative) Urine Nitrite (Negative) Ur Leukocyte Esterase (Negative) Urine Opiates Screen (Not Detect) Urine Fentanyl Screen (Not Detect) Ur Barbiturates Screen (Not Detect) Ur Phencyclidine Scrn (Not Detect) Ur Amphetamines Screen (Not Detect) U Benzodiazepines Scrn (Not Detect) Urine Cocaine Screen (Not Detect) U Marijuana (THC) Screen (Not Detect) Ethyl Alcohol 379 H* mg/dL COVID-19 (SIMONE) Negative (Negative) COVID-19 Clin Com See Note 08/17/22 08/17/22 Range/Units 00:15 00:16 WBC (4.8-10.8) X10*3/uL RBC (4.20-5.50) X10*6/uL Hgb (12.0-16.0) g/dl Hct (37.0-47.0) % MCV (80.0-98.0) fL MCH (27.0-33.0) pg MCHC (31.0-35.0) g/dl RDW (11.0-16.0) % Plt Count (160-400) X10*3/uL MPV (9.4-12.3) fL Immature Gran % (Auto) (0.0-0.4) % Neut % (Auto) (45-73) % Lymph % (Auto) (20-40) % Stevens % (Auto) (2-11) % Eos % (Auto) (0-4) % Baso % (Auto) (0-2) % Lymph # (Auto) (1.2-4.9) X10*3/uL Stevens # (Auto) (0.1-1.2) X10*3/uL Eos # (Auto) (0.0-0.4) X10*3/uL Baso # (Auto) (0.0-0.2) X10*3/uL Abs Immat Gran (auto) (0.00-0.03) X10*3/uL Absolute Neuts (auto) (2.0-8.3) x10*3/uL Absolute Nucleated RBC (0.0-0.012) X10*3/uL Nucleated RBC % (auto) (0.0-0.2) /100WBC Smear Tech's Comments Sodium (135-145) mmol/L Potassium (3.3-5.1) mmol/L Chloride (96-108) mmol/L Carbon Dioxide (22-29) mmol/L Anion Gap (12-20) BUN (9-16) mg/dL Creatinine (0.5-1.4) mg/dL Estim Creat Clear Calc Estimated GFR Random Glucose (60-115) mg/dL Calcium (8.4-10.2) mg/dL Total Bilirubin (0.0-1.0) mg/dL AST (5-31) U/L ALT (0-31) U/L Alkaline Phosphatase (39-117) U/L Total Protein (6.5-8.0) g/dL Albumin (3.5-5.0) g/dL Urine Color Yellow Urine Appearance Clear Urine pH 7.5 (5.0-9.0) Ur Specific Mcdermott <= 1.005 (1.005-1.025) Urine Protein Negative (Neg-Trace) mg/dL Urine Glucose (UA) Negative (Negative) mg/dL Urine Ketones Negative (Negative) mg/dL Urine Blood Negative (Negative) Urine Nitrite Negative (Negative) Ur Leukocyte Esterase Negative (Negative) Urine Opiates Screen Not Detected (Not Detect) Urine Fentanyl Screen Not Detected (Not Detect) Ur Barbiturates Screen Not Detected (Not Detect) Ur Phencyclidine Scrn Not Detected (Not Detect) Ur Amphetamines Screen Not Detected (Not Detect) U Benzodiazepines Scrn Not Detected (Not Detect) Urine Cocaine Screen Not Detected (Not Detect) U Marijuana (THC) Screen Not Detected (Not Detect) Ethyl Alcohol mg/dL COVID-19 (ISMONE) (Negative) COVID-19 Clin Com Independent Historian Clinical information obtained from an independent historian. History obtained from or confirmed by: EMS External Record Review External record reviewed: Inpatient record (Psychiatric) Tests considered The following testing was considered but not selected: Imaging studies Prescription Management I considered prescription management with: Pain Medication Chronic Conditions Patient?s care impacted by: Other (Alcohol abuse) Social Determinants Patient?s care significantly limited by Social Determinants of Health including: Inadequate housing Discharge Plan Discharge Clinical Impression: Alcohol abuse, Pancytopenia Patient Disposition: Still a Patient Instructions: Abuse of Alcohol (DC), Pancytopenia (DC) Prescriptions: No Action thiamine HCl (vitamin B1) [Vitamin B-1] 100 mg Tablet 100 mg PO DAILY multivitamin with folic acid [Daily-Nguyen (with folic acid)] 400 mcg tablet 1 tab PO DAILY Zoloft gabapentin 100 mg Capsule 200 mg PO BID prednisone 20 mg tablet 40 mg PO DAILY Rx Instructions: FOR 5 DAYS; NOT PICKED UP AT PHARMACY acetaminophen 500 mg Tablet 1,000 mg PO Q6H PRN (Reason: Pain) ibuprofen 200 mg Tablet 400 mg PO Q8H PRN (Reason: Pain) calcium carbonate [Tums 500] 500 mg calcium (1,250 mg) Tablet,Chewable 1,000 mg PO DAILY PRN (Reason: Heartburn) diazepam 5 mg tablet 5 mg PO Q6H Rx Instructions: FOR DAY 1; NOT PICKED UP AT PHARMACY diazepam 5 mg tablet 5 mg PO Q8H Rx Instructions: FOR DAY 2; NOT PICKED UP AT PHARMACY diazepam 5 mg tablet 5 mg PO Q12H Rx Instructions: FOR DAY 3; NOT PICKED UP AT PHARMACY diazepam 5 mg tablet 5 mg PO DAILY Rx Instructions: DAY 4; NOT PICKED UP AT PHARMACY acamprosate 333 mg tablet,delayed release (DR/EC) 333 mg PO TID Rx Instructions: STARTING ON 07/02/22; NOT PICKED UP AT PHARMACY Referrals: [facility] [Provider Group] - 3 days
[2022-08-16 23:56] VITALS: BP 126/55; BP 136/80; PULSE 84; PULSE 91; RESP 18; TEMP 37; O2SAT 95; BMI 46.5
[2022-08-16 23:59] VITALS: BP 126/55; PULSE 91; RESP 18; TEMP 37; O2SAT 95
[2022-08-17 00:09] LABS: Basophils Absolute Auto 0.1 X10*3/uL (0.0-0.2); Basophils Percent Auto 1.3 % (0-2); Eosinophils Absolute Auto 0.1 X10*3/uL (0.0-0.4); Eosinophils Percent Auto 1.5 % (0-4); PLT ABN DIST 1; Red Blood Count 4.25 X10*6/uL (4.20-5.50); SCAN SMEAR FLAG 1
[2022-08-17 00:10] LABS: Hematocrit 32.4 % (37.0-47.0); Hemoglobin 9.4 g/dl (12.0-16.0); Imm Gran Abs Auto 0.02 X10*3/uL (0.00-0.03); Imm Gran Pct Auto 0.5 % (0.0-0.4); Lymphocytes Absolute Auto 0.7 X10*3/uL (1.2-4.9); Lymphocytes Percent Auto 18.4 % (20-40); MANUAL DIFF FLAG SCAN; Mean Corpuscular Hemoglobin 22.1 pg (27.0-33.0); Mean Corpuscular Volume 76.2 fL (80.0-98.0); Mean Platelet Volume 10.3 fL (9.4-12.3); Monocytes Percent Auto 24.3 % (2-11); Neutrophils Absolute Auto 2.1 x10*3/uL (2.0-8.3); Red Cell Distribution Width 21.6 % (11.0-16.0); White Blood Count 3.9 X10*3/uL (4.8-10.8)
[2022-08-17 00:11] LABS: Platelet Count 76 X10*3/uL (160-400)
[2022-08-17 00:24] LABS: COVID-19 Test Negative (Negative); IDNOW Serial# BCCEAD1C
[2022-08-17 00:26] LABS: SLIDE REVIEW VERIFIED
[2022-08-17 00:27] LABS: Appearance Urine Clear; Color Urine Yellow; Glucose Urine UA Negative (Negative); Leukocyte Esterase Urine Negative (Negative); Nitrite Urine Negative (Negative); PH 7.5 (5.0-9.0); Specific Gravity - Urine <= 1.005 (1.005-1.025); Urine Blood Negative (Negative); Urine Ketones Negative (Negative); Urine Protein Negative (Neg-Trace)
[2022-08-17 00:39] LABS: Anion Gap 15 (12-20)
[2022-08-17 00:42] LABS: Amphetamine Screen Urine Not Detected (Not Detect); Barbiturates, Urine Not Detected (Not Detect); Benzodiazepines Screen Urine Not Detected (Not Detect); Cannabinoid Screen Urine Not Detected (Not Detect); Cocaine Screen Urine Not Detected (Not Detect); Fentanyl, urine Not Detected (Not Detect); Opiate Screen Urine Not Detected (Not Detect); Phencyclidine Screen Urine Not Detected (Not Detect)
[2022-08-17 00:46] LABS: Alanine Aminotransferase 18 U/L (0-31); Albumin Level 3.3 g/dL (3.5-5.0); Alkaline Phosphatase 85 U/L (39-117); Aspartate Amino Transferase 43 U/L (5-31); Bilirubin Total 1.8 mg/dL (0.0-1.0); Blood Urea Nitrogen 3 mg/dL (9-16); Calcium 8.2 mg/dL (8.4-10.2); Carbon Dioxide 29 mmol/L (22-29); Chloride 104 mmol/L (96-108); Creatinine Clr Calc Pharmacy 104.4; Estimated Glomerular Filt Rate > 60; Ethanol 379 mg/dL; Glucose Random 105 mg/dL (60-115); Potassium 2.9 mmol/L (3.3-5.1); Sodium 145 mmol/L (135-145); Total Protein 6.2 g/dL (6.5-8.0)
--- NOTE | 2022-08-17 03:30 | PC.NURSE ---
This typewriter tester assumed care of this Pt at 0300. Pt A&O to self and year and situation. States I have drinking problems and I am between a rock and hard place, I am homeless and been living from hotel to hotel . Pt reports walking with a walker.
[2022-08-17 03:42] VITALS: BP 106/50; PULSE 88; RESP 20; TEMP 36.9; O2SAT 92
[2022-08-17 05:56] VITALS: BP 105/57; PULSE 76; RESP 20; O2SAT 94
[2022-08-17 07:43] VITALS: BP 118/55; PULSE 82; RESP 14; TEMP 37.2; O2SAT 91
--- NOTE | 2022-08-17 09:07 | PC.NURSE ---
pt yelling out for Sudhakar - reports he is her BF . pt stating things such as will you stop getting a blow job in the bathroom and come back out here , informed pt that her BF is not here and has not been here. pt stated but I can hear him talking . t/w oriented pt to ER and her situation. informed her that the male voices she hears are the voices of the staff because she is in the ER. pt unsure of date but otherwise she is oriented to her self and situation. pt denies wanting detox.
--- NOTE | 2022-08-17 09:21 | MHC.CM.PN ---
CASE MANAGEMENT5 CONSULT RECEIVED NO P.T. EVAL CASE MANAGEMENT AVAILABLE IF P.T. RECOMMENDS STR
[2022-08-17 10:31] VITALS: BP 117/66; PULSE 91; RESP 19; O2SAT 90
--- NOTE | 2022-08-17 11:22 | PC.NURSE ---
pt reporting she has DTs. reports seeing a pink elephant walk by Antonio napier 3/. no tremors, sweats or tachycardia pt oriented to baseline. informed aniceto BERNAL of pts complaints, plan to order PO ativan.
[2022-08-17] MEDS: LORazepam 1 MG TABLET 2 MG PO (11:33)
[2022-08-17 12:00] VITALS: BP 119/56; PULSE 71; RESP 14; O2SAT 96
[2022-08-17 15:09] VITALS: BP 133/70; PULSE 83; RESP 17; O2SAT 96
== END 2022-08-17 15:51 | disposition home or self-care (01) ==
PROVIDERS: Emergency Provider Emergency Medicine
DX: F10.10 Alcohol abuse, uncomplicated (principal); Y90.8 Blood alcohol level of 240 mg/100 ml or more; D61.818 Other pancytopenia; Z87.891 Personal history of nicotine dependence; Z79.899 Other long term (current) drug therapy; Z20.822 Contact with and (suspected) exposure to COVID-19; Z20.828 Contact with and (suspected) exposure to other viral communicable diseases
CPT/HCPCS: 80053; 80307; 81003; 85025; 87635; 99285

== ENCOUNTER 2022-10-09 07:38 | Emergency (ER) | payer OTHER, SELFPAY ==
--- NOTE | 2022-10-09 07:41 | ED_ITS ---
HPI - General Adult General Chief complaint: ETOH/Substance Use Stated complaint: ETOH USE Time Seen by Provider: 10/09/22 07:41 Source: patient and EMS Mode of arrival: EMS Limitations: no limitations History of Present Illness HPI narrative: Patient is a 57 year old assigned female at with a history of alcohol abuse presenting to the emergency department today feeling generally unwell after alcohol use. Patient states that she has been drinking today and drinks every day. Patient denies any dizziness, lightheadedness, abdominal pain, nausea, vomiting, fever, chills, blurry vision, double vision, loss of vision, chest pain, difficulty breathing, shortness of breath, back pain, night sweats, pain with urination, increased urinary frequency, increased urinary urgency, blood in her urine or stool, syncope or a near syncopal episode, bowel incontinence, bladder incontinence, bowel retention, bladder retention, or any other complaints at this time. Severity: mild Relieving factors: none Exacerbating factors: none Associated symptoms: denies other symptoms Treatments prior to arrival: none Related Data Home Medications Medication Instructions Recorded Confirmed multivitamin with folic acid 400 1 tab PO DAILY 06/12/22 06/29/22 mcg tablet (Daily-Nguyen (with folic acid)) thiamine HCl (vitamin B1) 100 mg 100 mg PO DAILY 06/12/22 06/29/22 tablet (Vitamin B-1) Zoloft 06/29/22 acamprosate 333 mg tablet,delayed 333 mg PO TID 06/29/22 06/29/22 release acetaminophen 500 mg tablet 1,000 mg PO Q6H PRN Pain 06/29/22 06/29/22 calcium carbonate 500 mg calcium 1,000 mg PO DAILY PRN Heartburn 06/29/22 06/29/22 (1,250 mg) chewable tablet diazepam 5 mg tablet 5 mg PO DAILY 06/29/22 06/29/22 diazepam 5 mg tablet 5 mg PO Q12H 06/29/22 06/29/22 diazepam 5 mg tablet 5 mg PO Q6H 06/29/22 06/29/22 diazepam 5 mg tablet 5 mg PO Q8H 06/29/22 06/29/22 gabapentin 100 mg capsule 200 mg PO BID 06/29/22 ibuprofen 200 mg tablet 400 mg PO Q8H PRN Pain 06/29/22 06/29/22 prednisone 20 mg tablet 40 mg PO DAILY 06/29/22 06/29/22 Allergies Allergy/AdvReac Type Severity Reaction Status Date / Time Penicillins Allergy Mild Rash Verified 08/17/22 06:35 levofloxacin [From Levaquin] AdvReac Severe Difficulty Verified 08/17/22 06:35 Breathing peanut AdvReac Severe Anaphylaxis Verified 08/17/22 06:35 Peanut Butter AdvReac Severe Anaphylaxis Verified 08/17/22 06:35 Sulfa (Sulfonamide AdvReac Severe Difficulty Verified 08/17/22 06:35 Antibiotics) Breathing Review of Systems Constitutional: Constitutional: Reports no additional constitutional complaints, Denies chills, Denies fever(s) and Denies night sweats Eyes: Eyes: Reports no additional eye complaints, Denies blurry vision, Denies change in vision, Denies diplopia, Denies eye discharge, Denies loss of vision and Denies eye pain ENT: Denies dizziness Cardiovascular: Cardiovascular: Reports no additional cardiovascular complaints, Denies chest pain, Denies lightheadedness, Denies Loss of Consciousness and Denies dyspnea Respiratory: Respiratory: Reports no additional respiratory complaints and Denies dyspnea Gastrointestinal: Gastrointestinal: Reports no additional gastrointestinal complaints, Denies abdominal pain, Denies melena, Denies hematochezia, Denies change in bowel habits and Denies change in stool character Genitourinary: Genitourinary: Denies hematuria, Denies urinary frequency, Denies dysuria, Denies urinary incontinence, Denies urinary hesitancy and Denies urinary urgency Musculoskeletal: Musculoskeletal: Reports no additional musculoskeletal complaints, Denies numbness and Denies tingling Neurologic: Denies dizziness, Denies loss of vision, Denies numbness and De nies tingling Psychiatric: Psychiatric: Reports no additional psychiatric complaints Endocrine: Endocrine: Reports no additional endocrine complaints Hematologic/Lymphatic: Hematologic/Lymphatic: Reports no additional hematologic/lymphatic complaints Allergic/Immunologic: Allergic/Immunologic: Reports no additional allergic/immunologic complaints PMFSH Past Medical History Attestation statement: The following information was validated with the patient. Source: old records reviewed and nursing notes reviewed Medical History Alcohol abuse with withdrawal Alcohol use disorder, severe, dependence Alcoholic cirrhosis of liver Anxiety Cirrhosis of liver COPD (chronic obstructive pulmonary disease) Depression Hypertension MDD (major depressive disorder), recurrent episode, moderate Surgical History H/O foot surgery Family History Family History Mother Pancreatic cancer Social History Social History Household Members: Significant Other Household Members Other:: boyfriend Housing: Homeless Do you presently have visiting nurse or other home services: No Alcohol intake: current Alcohol intake frequency: 3 or more drinks per day Alcohol type: hard liquor Patient Tobacco Use Status: Former Tobacco user Substance Use Type: Marijuana Advance Directives: Yes Advance Directives on File: Yes Advance Directives Date on File: 03/11/21 service: No Current occupational status: unemployed Physical Exam ED Vital Signs: Vital Signs - 24 hr 10/09/22 07:59 10/09/22 12:15 Temperature 96.1 F L 99.0 F Pulse Rate 79 94 Respiratory Rate 20 18 Blood Pressure 123/59 L 122/59 L Pulse Oximetry 92 96 Oxygen Delivery Method Room Air Room Air BMI result Body Mass Index 36.4 Const General: cooperative, no acute distress, alert and awake Nutritional Appearance: well nourished Orientation/consciousness: patient oriented x3 Limitations: no limitations HENMT Head: Yes normal to inspection and Yes atraumatic Ears: hearing grossly normal bilaterally and external ears normal General nose exam: Normal external nose present, no nasal discharge noted and no epistaxis Face and sinus: Yes normal facial exam, No abrasion and No laceration Mouth: Normal oral and palatal mucosa present, no drooling and no muffled voice Eyes General: appearance normal, both eyes and all related structures Periorbital: periorbital findings normal Eyelids: Yes eyelids normal Conjunctivae: conjunctivae normal Pupils: Equal, round and reactive pupils present EOM: EOMs intact bilaterally Neck Neck: Yes normal visual inspection, Yes full ROM and Yes no lymphadenopathy Chest Chest palpation & inspection: normal inspection of the chest Resp Effort & Inspection: normal respiratory effort and able to speak in complete sentences Auscultation: clear to auscultation bilaterally Cardio Rate: regular rate Rhythm: regular rhythm GI Inspection: Yes normal to inspection Palpation (GI): Soft to palpation, not firm, nontender and no guarding Neuro General: patient oriented x3 and moves all extremities Cranial nerves: Yes Equal, round and reactive pupils present Cognition (Neuro): normal cognition Motor exam (neuro): 5/5 motor strength present throughout Sensory Exam: Normal double simultaneous stimulation for sensation Coordination: [id number] test normal Extrem General: Yes normal to inspection, Yes full ROM and Yes capillary refill normal Psych Appearance: grossly normal Mental Status: mental status grossly normal Affect: normal affect Attitude: cooperative Thought process: Normal thought process present Thought content: Normal thought content present Insight: Good insight present (Psych) Medical Decision Making Medical Decision Making MDM Narrative: Patient is a 57 year old assigned female at with a history of alcohol abuse and COPD presenting to the emergency department today feeling generally unwell after ingesting excess amounts of alcohol. Patient's physical exam was unremarkable. Patient's blood work showed hypernatremia of 147, the rest of the patient's labs are grossly normal. Patient's EKG was unremarkable. I explained my physical exam findings as well as all test results to the patient. I answered all questions asked by the patient. Patient was visited by the recovery team however, the patient refused any resources or treatment placement. I stressed the importance of the patient taking her medication as prescribed. I stressed the importance of the patient following up with her primary care provider. I stressed the importance of the patient returning to the emergency department immediately if her symptoms were to worsen or if she were to develop any dizziness, shortness of breath, difficulty breathing, chest pain, blurry vision, loss of vision, nausea, vomiting, abdominal pain, fever, chills, back pain, or any other complaints. Patient verbalized agreement and understanding with this treatment plan and discharge. Differential Diagnosis Differential Diagnoses: The differential diagnosis associated with the presentation includes Hypernatremia Alcohol abuse Alcohol use Alcohol intoxiction Admission/Observation Consideration of admission/observation: Escalation of care including admission/observation considered Patient would have been admitted to the hospital had her work up had any findings where hospital admission was appropriate and her clinical presentation warranted hospital admission. Consult Healthcare Provider Management of the patient was discussed with: Behavioral Health Provider (spoke with recovery as noted in the MDM portion of this note) Lab Data [facility] Lab Attestation statement: I reviewed the patient's lab results. My interpretation of these results are in the MDM portion of this note. 10/09/22 08:30 10/09/22 08:30 Labs: Lab Results 10/09/22 10/09/22 Range/Units 08:30 08:30 WBC 3.1 L (4.8-10.8) X10*3/uL RBC 4.32 (4.20-5.50) X10*6/uL Hgb 9.4 L (12.0-16.0) g/dl Hct 31.5 L (37.0-47.0) % MCV 72.9 L (80.0-98.0) fL MCH 21.8 L (27.0-33.0) pg MCHC 29.8 L (31.0-35.0) g/dl RDW 19.6 H (11.0-16.0) % Plt Count 86 L (160-400) X10*3/uL MPV Not Reportable Immature Gran % (Auto) 0.3 (0.0-0.4) % Neut % (Auto) 49.7 (45-73) % Lymph % (Auto) 25.2 (20-40) % [place] % (Auto) 16.1 H (2-11) % Eos % (Auto) 7.4 H (0-4) % Baso % (Auto) 1.3 (0-2) % Lymph # (Auto) 0.8 L (1.2-4.9) X10*3/uL [place] # (Auto) 0.5 (0.1-1.2) X10*3/uL Eos # (Auto) 0.2 (0.0-0.4) X10*3/uL Baso # (Auto) 0.0 (0.0-0.2) X10*3/uL Abs Immat Gran (auto) 0.01 (0.00-0.03) X10*3/uL Absolute Neuts (auto) 1.5 L (2.0-8.3) x10*3/uL Absolute Nucleated RBC 0.000 (0.0-0.012) X10*3/uL Nucleated RBC % (auto) 0.0 (0.0-0.2) /100WBC Sodium 147 H (135-145) mmol/L Potassium 3.5 D (3.3-5.1) mmol/L Chloride 106 (96-108) mmol/L Carbon Dioxide 27 (22-29) mmol/L Anion Gap 18 (12-20) BUN 7 L (9-16) mg/dL Creatinine 0.64 (0.5-1.4) mg/dL Estim Creat Clear Calc 87.5 Estimated GFR > 60 Random Glucose 110 (60-115) mg/dL Calcium 8.2 L (8.4-10.2) mg/dL Magnesium 1.6 (1.6-2.6) mg/dL Total Bilirubin 1.2 H (0.0-1.0) mg/dL AST 49 H (5-31) U/L ALT 23 (0-31) U/L Alkaline Phosphatase 85 (39-117) U/L Total Protein 7.1 (6.5-8.0) g/dL Albumin 3.6 (3.5-5.0) g/dL Lipase 28 (8-78) U/L Ethyl Alcohol 338 H* mg/dL Independent Interpretation I performed an independent interpretation of an: EKG Interpretation: Vent. Rate: 073 BPM ? ? Atrial Rate: 073 BPM P-R Int: 156 ms? QRS Dur: 090 ms QT Int: 420 ms ? ? ? P-R-T Axes: 066 022 050 degrees QTc Int: 462 ms ? Normal sinus rhythm Normal ECG When compared with ECG of 29-JUN-2022 01:54, No significant change was found DD/ [id number] Radiology Impression Discussion of test interpretation with radiology: I have reviewed the ra diologist's reading. Independent Historian Clinical information obtained from an independent historian. History obtained from or confirmed by: EMS (EMS provided additional history and confirmed the history provided by the patient.) Chronic Conditions Patient?s care impacted by: Other (alcohol abuse) Social Determinants Patient?s care significantly limited by Social Determinants of Health including: Other Social Determinant of Health (alcohol abuse) Discharge Plan Discharge Clinical Impression: Alcohol use disorder, severe, dependence Patient Disposition: Home, Self-Care Instructions: Abuse of Alcohol (DC) Additional Instructions: Follow up with your primary care provider. Return to the emergency department immediately if your symptoms worsen or if you develop any dizziness, shortness of breath, difficulty breathing, chest pain, blurry vision, loss of vision, nausea, vomiting, abdominal pain, fever, chills, back pain, or any other complaints. Prescriptions: No Action thiamine HCl (vitamin B1) [Vitamin B-1] 100 mg Tablet 100 mg PO DAILY multivitamin with folic acid [Daily-Nguyen (with folic acid)] 400 mcg tablet 1 tab PO DAILY Zoloft gabapentin 100 mg Capsule 200 mg PO BID prednisone 20 mg tablet 40 mg PO DAILY Rx Instructions: FOR 5 DAYS; NOT PICKED UP AT PHARMACY acetaminophen 500 mg Tablet 1,000 mg PO Q6H PRN (Reason: Pain) ibuprofen 200 mg Tablet 400 mg PO Q8H PRN (Reason: Pain) calcium carbonate [Tums 500] 500 mg calcium (1,250 mg) Tablet,Chewable 1,000 mg PO DAILY PRN (Reason: Heartburn) diazepam 5 mg tablet 5 mg PO Q6H Rx Instructions: FOR DAY 1; NOT PICKED UP AT PHARMACY diazepam 5 mg tablet 5 mg PO Q8H Rx Instructions: FOR DAY 2; NOT PICKED UP AT PHARMACY diazepam 5 mg tablet 5 mg PO Q12H Rx Instructions: FOR DAY 3; NOT PICKED UP AT PHARMACY diazepam 5 mg tablet 5 mg PO DAILY Rx Instructions: DAY 4; NOT PICKED UP AT PHARMACY acamprosate 333 mg tablet,delayed release (DR/EC) 333 mg PO TID Rx Instructions: STARTING ON 07/02/22; NOT PICKED UP AT PHARMACY Referrals: [facility] [place] [facility] [Provider Group] (Call to establish and follow up with a primary care provider. If you already have a primary care provider, please follow up with them.) [facility] [place] [facility] [Provider Group] (Call to establish and follow up with a primary care provider. If you already have a primary care provider, please follow up with them.) [facility] [place] Primary [facility] [Provider Group] (Call to establish and follow up with a primary care provider. If you already have a primary care provider, please follow up with them.) Print Language: Greek
[2022-10-09 07:59] VITALS: BP 123/59; BP 136/66; PULSE 79; PULSE 88; RESP 20; TEMP 35.6; O2SAT 92; BMI 36.4
[2022-10-09 08:42] LABS: MANUAL DIFF FLAG NO
[2022-10-09 08:53] LABS: Basophils Percent Auto 1.3 % (0-2); Eosinophils Absolute Auto 0.2 X10*3/uL (0.0-0.4); Eosinophils Percent Auto 7.4 % (0-4); Hematocrit 31.5 % (37.0-47.0); Hemoglobin 9.4 g/dl (12.0-16.0); Imm Gran Abs Auto 0.01 X10*3/uL (0.00-0.03); Imm Gran Pct Auto 0.3 % (0.0-0.4); Lymphocytes Absolute Auto 0.8 X10*3/uL (1.2-4.9); Lymphocytes Percent Auto 25.2 % (20-40); Mean Corpuscular HGB Conc 29.8 g/dl (31.0-35.0); Mean Corpuscular Hemoglobin 21.8 pg (27.0-33.0); Mean Corpuscular Volume 72.9 fL (80.0-98.0); Monocytes Absolute Auto 0.5 X10*3/uL (0.1-1.2); Monocytes Percent Auto 16.1 % (2-11); Neutrophils Absolute Auto 1.5 x10*3/uL (2.0-8.3); Neutrophils Percent Auto 49.7 % (45-73); Red Blood Count 4.32 X10*6/uL (4.20-5.50); Red Cell Distribution Width 19.6 % (11.0-16.0); White Blood Count 3.1 X10*3/uL (4.8-10.8)
[2022-10-09 08:54] LABS: Platelet Count 86 X10*3/uL (160-400)
[2022-10-09 09:01] LABS: Alanine Aminotransferase 23 U/L (0-31); Albumin Level 3.6 g/dL (3.5-5.0); Alkaline Phosphatase 85 U/L (39-117); Anion Gap 18 (12-20); Aspartate Amino Transferase 49 U/L (5-31); Bilirubin Total 1.2 mg/dL (0.0-1.0); Blood Urea Nitrogen 7 mg/dL (9-16); Calcium 8.2 mg/dL (8.4-10.2); Carbon Dioxide 27 mmol/L (22-29); Chloride 106 mmol/L (96-108); Creatinine Clr Calc Pharmacy 87.5; Estimated Glomerular Filt Rate > 60; Ethanol 338 mg/dL; Glucose Random 110 mg/dL (60-115); Lipase 28 U/L (8-78); Magnesium 1.6 mg/dL (1.6-2.6); Potassium 3.5 mmol/L (3.3-5.1); Sodium 147 mmol/L (135-145); Total Protein 7.1 g/dL (6.5-8.0)
--- NOTE | 2022-10-09 09:04 | ECG_ITS ---
Test Reason : ETOH Blood Pressure : / mmHG Vent. Rate : 073 BPM Atrial Rate : 073 BPM P-R Int : 156 ms QRS Dur : 090 ms QT Int : 420 ms P-R-T Axes : 066 022 050 degrees QTc Int : 462 ms Normal sinus rhythm Normal ECG When compared with ECG of 29-JUN-2022 01:54, No significant change was found Referred By: Tiffani Felix Electronically Signed By:KIRILL PUTNAM
--- NOTE | 2022-10-09 10:14 | PC.NURSE ---
Ordered for Physician Obs. status.
[2022-10-09 12:15] VITALS: BP 122/59; PULSE 94; RESP 18; TEMP 37.2; O2SAT 96
--- NOTE | 2022-10-09 12:46 | MHC.RECOVSUP ---
Met with pt in ED[facility] who is here for SANTINO. Pt informs she is not ready for recovery at this time, T/W reviewed harm reduction and provided resources. Pt has no other questions or concerns at this time.
== END 2022-10-09 12:42 | disposition home or self-care (01) ==
PROVIDERS: Physician Assistant Medical; Emergency Provider Student in an Organized Health Care Education/Training Program
DX: F10.229 Alcohol dependence with intoxication, unspecified (principal); Y90.8 Blood alcohol level of 240 mg/100 ml or more; Z79.899 Other long term (current) drug therapy
CPT/HCPCS: 36415; 80053; 80307; 83690; 83735; 85025; 93005; 99283; 99284

== ENCOUNTER → 2022-10-09 09:04 | Outpatient (BNV) | payer OTHER, SELFPAY | PROVIDERS: Emergency Provider Student in an Organized Health Care Education/Training Program; Visit Provider Internal Medicine | DX: R41.82 Altered mental status, unspecified (principal) | CPT/HCPCS: 93010 ==

== ENCOUNTER 2022-11-06 15:13 | Inpatient (IN) | payer OTHER, SELFPAY ==
[2022-11-06] VITALS (8 sets, daily range): BP systolic 102–137; BP diastolic 51–69; PULSE 83–99; RESP 13–20; TEMP 36.1–37.4; O2SAT 87–98; BMI 42.3; BMI 42.1
--- NOTE | ~2022-11-06 | XR_ITS ---
EXAMINATION: XR CHEST CLINICAL INFORMATION: Shortness of breath. COMPARISON: 06/29/2022 chest radiographs. TECHNIQUE: Frontal view of the chest was obtained. FINDINGS: No significant abnormality is noted involving the heart, lungs, mediastinum, bony thorax or soft tissues. XR/XR chest 1V IMPRESSION: No acute cardiopulmonary process.
--- NOTE | 2022-11-06 15:21 | ECG_ITS ---
Test Reason : SOB Blood Pressure : / mmHG Vent. Rate : 093 BPM Atrial Rate : 093 BPM P-R Int : 152 ms QRS Dur : 078 ms QT Int : 374 ms P-R-T Axes : 047 028 061 degrees QTc Int : 465 ms Normal sinus rhythm Cannot rule out Inferior infarct , age undetermined Abnormal ECG When compared with ECG of 09-OCT-2022 09:44, Minimal criteria for Inferior infarct are now Present Referred By: Sd Norris Electronically Signed By:TINY GOLDMAN
--- NOTE | 2022-11-06 15:24 | ED.GENADULT ---
HPI - General Adult General Chief complaint: Dyspnea Stated complaint: SOB,back pain Time Seen by Provider: 11/06/22 16:04 Source: patient Mode of arrival: ambulatory Limitations: no limitations History of Present Illness HPI narrative: Patient is a 57 year old female who presents to the ED for evaluation of shortness of breath. She reports worsening of her shortness of breath ?for a long time?. She is endorsing midsternal chest pain and diffuse back pain that is exacerbated with cough/deep breathing. Denies fevers, chills, upper respiratory symptoms, nausea, vomiting, abdominal pain, numbness or tingling of the extremities, recent lower extremity redness, swelling, pain, or edema. Per nursing staff, upon her arrival to the room she was noted to be hypoxic with room air saturation 87% which responded to O2 via nasal cannula. Patient states that she is homeless, she does not have oxygen, she reports generalized weakness despite the use of a walker. When asked, she states that she does not take any inhalers as they make her vomit. Related Data Home Medications Medication Instructions Recorded Confirmed multivitamin with folic acid 400 1 tab PO DAILY 06/12/22 11/06/22 mcg tablet (Daily-Nguyen (with folic acid)) thiamine HCl (vitamin B1) 100 mg 100 mg PO DAILY 06/12/22 11/06/22 tablet (Vitamin B-1) acetaminophen 500 mg tablet 1,000 mg PO Q6H PRN Pain 06/29/22 11/06/22 calcium carbonate 500 mg calcium 1,000 mg PO DAILY PRN Heartburn 06/29/22 11/06/22 (1,250 mg) chewable tablet gabapentin 100 mg capsule 200 mg PO BID 06/29/22 11/06/22 cetirizine 10 mg tablet 10 mg PO DAILY 11/06/22 11/06/22 ferrous gluconate 324 mg (38 mg 324 mg PO DAILY 11/06/22 11/06/22 iron) tablet folic acid 1 mg tablet 1 mg PO DAILY 11/06/22 11/06/22 hydroxyzine HCl 25 mg tablet 25 - 50 mg PO BID PRN Anxiety 11/06/22 11/06/22 magnesium oxide 400 mg (241.3 mg 400 mg PO DAILY 11/06/22 11/06/22 magnesium) tablet naltrexone 50 mg tablet 50 mg PO DAILY 11/06/22 11/06/22 pantoprazole 40 mg tablet,delayed 40 mg PO BID 11/06/22 11/06/22 release pyridoxine (vitamin B6) 100 mg 50 mg PO DAILY 11/06/22 11/06/22 tablet Allergies Allergy/AdvReac Type Severity Reaction Status Date / Time Penicillins Allergy Mild Rash Verified 08/17/22 06:35 levofloxacin [From Levaquin] AdvReac Severe Difficulty Verified 08/17/22 06:35 Breathing peanut AdvReac Severe Anaphylaxis Verified 08/17/22 06:35 Peanut Butter AdvReac Severe Anaphylaxis Verified 08/17/22 06:35 Sulfa (Sulfonamide AdvReac Severe Difficulty Verified 08/17/22 06:35 Antibiotics) Breathing Review of Systems Review of Systems: Constitutional : No Fever, No Chills, positive generalized weakness ENT/Mouth : No Hoarseness, No sore throat, No Rhinorrhea Eyes: No Redness, No Discharge, No Vision Changes Cardiovascular : Positive Chest Pain, positive SOB, positive Dyspnea on Exertion, No Edema Respiratory : positive Cough, No Sputum, positive Wheezing, Gastrointestinal : No Nausea, No Vomiting, No Diarrhea, No abdominal Pain Genitourinary : No Dysuria, No Hematuria Musculoskeletal : No joint pain, No Myalgias Skin : No rash Neuro : No Weakness, No Numbness, No Headache Psych : No anxiety, depression Heme/Lymph: No Bruising, No Bleeding Endocrine : No Polyuria, No Polydipsia Yes all other systems are reviewed and are negative FORMERLY [facility], [facility] Past Medical History Attestation statement: The following information was validated with the patient. Source: old records reviewed Medical History Alcohol abuse with withdrawal Alcohol use disorder, severe, dependence Alcoholic cirrhosis of liver Anxiety Cirrhosis of liver COPD (chronic obstructive pulmonary disease) Depression Hypertension MDD (major depressive disorder), recurrent episode, moderate Surgical History H/O foot surgery Family History Family History Mother Pancreatic cancer Social History Social History Household Members: None Household Members Other:: boyfriend Housing: Other Housing Other:: homeless Do you presently have visiting nurse or other home services: No Alcohol intake: current Alcohol intake frequency: 3 or more drinks per day Alcohol type: hard liquor Patient Tobacco Use Status: Former Tobacco user Smoked in Last 30 Days: No Use of substances other than those prescribed or required for medical reasons: No Substance Use Type: Marijuana Currently Displaying Signs/Symptoms of Drug Intoxication Withdrawal: No Have you been hit, kicked, punched, or otherwise hurt by someone within the past year? If so, by whom?: No Do you feel safe in your current relationship?: No Current Relationship Is there a partner from a previous relationship who is making you feel unsafe now?: No Are you made to feel afraid or neglected: No Advance Directives: Yes Advance Directives on File: Yes Advance Directives Date on File: 03/11/21 Do you have thoughts of harming others: None Do you have a plan to hurt others: No Plan Recently lost weight without trying: No How much weight loss: Not applicable Eating poorly because of decreased appetite: No Nutrition screen score: 0 Patient : No : No Poor oral hygiene: No service: No Current occupational status: unemployed Physical Exam ED Vital Signs: Vital Signs - 24 hr 11/06/22 15:17 11/06/22 15:32 11/06/22 16:00 Temperature 99.3 F 98.3 F 98.2 F Pulse Rate 99 87 85 Respiratory Rate 20 16 Blood Pressure 125/51 L 106/56 L 118/57 L Pulse Oximetry 91 L 92 96 Oxygen Delivery Method Room Air Room Air Nasal Cannula Oxygen Flow Rate 2.5 11/06/22 15:55 11/06/22 16:42 11/06/22 18:00 Temperature Pulse Rate 83 93 Respiratory Rate 13 18 Blood Pressure 102/51 L Pulse Oximetry 87 L 96 Oxygen Delivery Method Room Air Nasal Cannula Oxygen Flow Rate 2 BMI result Body Mass Index 42.3 Appearance: Alert.?Oriented to person, place and time. No acute distress.?Normal affect. Eyes: Pupils equal, round and reactive to light.? ENT: Pharynx normal.?? Neck: Normal inspection.? Neck supple.?? CVS: Heart sounds normal. Normal heart rate and rhythm.? Pulses normal.?? Respiratory: No respiratory distress.? Lung sounds type bilaterally with diffuse expiratory wheezing Abdomen: Soft and non-tender. Normoactive bowel sounds. Skin: Skin warm and dry.? Normal skin color.? Extremities: No lower extremity edema.? No calf ttp? Neuro: Moves all extremities spontaneously. Sensation intact bilaterally. Ambulates with a slow unsteady gait and use of walker Course Course Course Narrative: RME: 57 yold female who states pmh oF COPD presents to the ED for shortness of breath on exertion and back pain. patient states no leg swelilng, calf pain, or URI symptoms. 02 sat 89%-91 percent on room air. labs and EKG ordered Reevaluation(s) Reevaluation #1: CBC reveals no leukocytosis, baseline microcytic anemia and thrombocytopenia, no indication for transfusion. Troponin 20.3, likely a demand ischemia, EKG revealing a normal sinus rhythm, no ST elevation, no ST depression, no T-wave inversion will plan to obtain delta troponin. BMP within normal limits. COVID-19 and influenza testing are negative. Chest x-ray without evidence of acute cardiopulmonary process. It is symptoms at this time most consistent with COPD exacerbation, will cover with Rocephin 1 g IV. Time: 17:11 Reevaluation #2: Ambulatory O2 trial with desaturation down to 83%. Will plan for admission due to acute hypoxic respiratory failure secondary to COPD exacerbation. I was advised by nursing staff that when patient was in the bathroom she had alcohol in her possession which she consumed a large volume a while in the bathroom. Security was involved and subsequently took the remainder of her alcohol. Time: 18:31 Reevaluation #3: Accepted for admission to medicine service under hospitalist; Dr. Walters Medications Administered Generic Name Dose Route Start Last Admin Trade Name Freq PRN Reason Stop Dose Admin Acetaminophen 650 mg 11/06/22 19:14 11/10/22 20:17 Acetaminophen 325 Mg Tablet PO 650 mg Q6H PRN Administration Pain, Mild (Pain Scale 1-3) Albuterol/Ipratropium 3 ml 11/06/22 20:00 11/10/22 20:26 Albuterol/Iprat 2.5/0.5mg 3 Ml Ampul.Neb INHALE 3 ml RQ4H WHILE AWAKE SANDRA Administration Calcium Carbonate 750 mg 11/07/22 07:22 11/07/22 08:38 Calcium Carbonate 750 Mg Tab.Chew PO 750 mg DAILY PRN Administration Heartburn Enoxaparin Sodium 40 mg 11/06/22 20:00 11/10/22 20:21 Enoxaparin Sodium 40 Mg/0.4 Ml Syringe SUBCUT 40 mg Q24H SANDRA Administration Ferrous Sulfate 324 mg 11/07/22 09:00 11/10/22 08:59 Ferrous Sulfate 324 Mg Tablet. PO 324 mg DAILY SANDRA Administration Gabapentin 200 mg 11/07/22 14:47 11/10/22 20:19 Gabapentin 100 Mg Capsule PO 200 mg BID SANDRA Administration Guaifenesin 5 ml 11/07/22 08:48 11/07/22 09:52 Guaifenesin 100 Mg/5 Ml Liquid PO 5 ml Q6H PRN Administration Cough Hydroxyzine HCl 50 mg 11/07/22 14:48 11/10/22 20:27 Hydroxyzine Hcl 50 Mg Tablet PO 50 mg BID PRN Administration Anxiety Magnesium Oxide 400 mg 11/07/22 09:00 11/10/22 08:59 Magnesium Oxide 400 Mg Tablet PO 400 mg DAILY SANDRA Administration Melatonin 6 mg 11/06/22 19:14 11/10/22 20:20 Melatonin 3 Mg Tablet PO 6 mg BEDTIME PRN Administration Insomnia Multivitamins/Vitamin C 1 tab 11/07/22 09:00 11/10/22 08:59 Multivitamin Tablet PO 1 tab DAILY SANDRA Administration Nystatin 1 appl 11/07/22 09:00 11/10/22 20:23 Nystatin Powder 15 Gm Bottle TOPICAL 1 appl BID SANDRA Administration Protocol Omeprazole 20 mg 11/07/22 09:00 11/10/22 17:26 Omeprazole 20 Mg Capsule. PO 20 mg BID@9630,8080 SANDRA Administration Ondansetron HCl 4 mg 11/06/22 19:14 11/07/22 08:38 Ondansetron Hcl 4 Mg/2 Ml Vial IVPUSH 4 mg Q8H PRN Administration Nausea and Vomiting Phenobarbital 15 mg 11/09/22 09:00 11/10/22 20:20 Phenobarbital 15 Mg Tablet PO 11/10/22 21:01 15 mg BID SANDRA Administration Prednisone 40 mg 11/10/22 09:00 11/10/22 08:59 Prednisone 20 Mg Tablet PO 40 mg DAILY SANDRA Administration Pyridoxine HCl 50 mg 11/07/22 09:00 11/10/22 08:59 Pyridoxine Hcl (Vitamin B6) 50 Mg Tablet PO 50 mg DAILY SANDRA Administration Sodium Chloride 3 ml 11/07/22 00:00 11/10/22 17:27 0.9 % Sodium Chloride Flush 3 Ml Syringe IVFLUSH 3 ml QSHIFT SANDRA Administration Discontinued Medications Generic Name Dose Route Start Last Admin Trade Name Tin PRN Reason Stop Dose Admin Albuterol Sulfate 5 mg/ 0 mg 11/06/22 16:32 11/06/22 16:40 Albuterol/Ipratropium 3 ml INHALE 11/06/22 16:33 2.5 each ONCE ONE Administration Hydroxyzine HCl 25 mg 11/07/22 12:41 11/07/22 14:37 Hydroxyzine Hcl 25 Mg Tablet PO 25 mg BID PRN Administration Anxiety Ceftriaxone Sodium 1 gm/ 50 mls @ 100 mls/hr 11/06/22 17:16 11/06/22 18:55 Sodium Chloride IV 11/06/22 17:45 Infused ONCE ONE Infusion Thiamine HCl 100 mg/ Sodium 101 mls @ 202 mls/hr 11/06/22 19:14 11/06/22 20:25 Chloride IV 11/06/22 19:43 Infused ONCE ONE Infusion Azithromycin 500 mg/ Sodium 250 mls @ 125 mls/hr 11/06/22 20:00 11/07/22 00:09 Chloride IV Infused Q24H SANDRA Infusion Magnesium Sulfate 2 gm in 50 mls @ 25 mls/hr 11/07/22 08:46 11/07/22 11:58 Magnesium Sulfate/H2o IV 11/07/22 10:45 Infused ONCE ONE Infusion Magnesium Sulfate 2 gm in 50 mls @ 25 mls/hr 11/07/22 14:50 11/07/22 17:25 Magnesium Sulfate/H2o IV 11/07/22 16:49 Infused ONCE ONE Infusion Lorazepam 1 mg 11/06/22 19:14 11/06/22 19:42 Lorazepam 2 Mg/Ml Vial IVPUSH 11/06/22 19:15 1 mg STAT STA Administration Methylprednisolone Sodium Succinate 125 mg 11/06/22 16:32 11/06/22 16:44 Methylprednisolone Sod Succ 125 Mg/2 Ml Vial IVPUSH 11/06/22 16:33 125 mg ONCE ONE Administration Methylprednisolone Sodium Succinate 40 mg 11/07/22 05:00 11/09/22 05:02 Methylprednisolone Sod Succ 40 Mg/Ml Vial IVPUSH 40 mg Q12H SNADRA Administration Phenobarbital 30 mg 11/07/22 09:00 11/08/22 20:12 Phenobarbital 30 Mg Tablet PO 11/08/22 21:01 30 mg BID SANDRA Administration Protocol Phenobarbital Sodium 180 mg 11/06/22 20:00 11/06/22 21:47 Phenobarbital Sodium 130 Mg/Ml Im Once IM 11/06/22 20:01 180 mg ONCE ONE Administration Protocol Phenobarbital Sodium 135 mg 11/06/22 23:00 11/07/22 02:49 Phenobarbital Sodium 130 Mg/Ml Vial Im Q3hx2 IM 11/07/22 02:01 135 mg Q3H SANDRA Administration Protocol Phenobarbital Sodium 135 mg 11/07/22 12:45 11/07/22 13:13 Phenobarbital Sodium 130 Mg/Ml Vial Im Q3hx2 IM 11/07/22 12:46 135 mg ONCE ONE Administration Protocol Potassium Chloride 40 meq 11/06/22 19:38 11/06/22 21:44 Potassium Chloride Packet 20 Meq Packet PO 11/06/22 19:39 40 meq ONCE ONE Administration Medical Decision Making Medical Decision Making MDM Narrative: Patient is a 57-year-old female with past medical history of alcohol use disorder, anxiety, depression, COPD, cirrhosis, hypertension who presents emergency department for evaluation of shortness of breath. At the time of my examination she is speaking brief short sentences, on O2 via nasal cannula, with mild tachypnea. Lung sounds are tight with expiratory wheezing throughout. Concern for COPD exacerbation versus viral syndrome, will rule out pneumonia, lower suspicion for sepsis. Will obtain CBC to evaluate for leukocytosis/ anemia, CMP and lipase to evaluate for abnormal electrolytes /abnormal renal function/ abnormal hepatic/biliary function, EKG and troponin to evaluate for ischemia/ACS. Chest x-ray to evaluate for consolidation/ infiltrate/ mass/ pulmonary congestion. Patient receive DuoNeb updraft and Solu-Medrol IV Differential Diagnosis Differential Diagnoses: The differential diagnosis associated with the presentation includes (As noted above) Admission/Observation Consideration of admission/observation: Escalation of care including admission/observation considered (Considered admission for shortness of breath and room air hypoxia, see course narrative for further detail) Lab Data [facility] Lab Attestation statement: I reviewed the patient's lab results. (See course narrative for further detail) 11/06/22 15:49 11/06/22 15:49 Labs: Lab Results 11/06/22 11/06/22 11/06/22 Range/Units 15:49 15:49 15:49 WBC 4.8 (4.8-10.8) X10*3/uL RBC 4.31 (4.20-5.50) X10*6/uL Hgb 9.4 L (12.0-16.0) g/dl Hct 31.6 L (37.0-47.0) % MCV 73.3 L (80.0-98.0) fL MCH 21.8 L (27.0-33.0) pg MCHC 29.7 L (31.0-35.0) g/dl RDW 21.2 H (11.0-16.0) % Plt Count 127 L D (160-400) X10*3/uL MPV 10.6 (9.4-12.3) fL Immature Gran % (Auto) 0.4 (0.0-0.4) % Neut % (Auto) 45.8 (45-73) % Lymph % (Auto) 31.0 (20-40) % [place] % (Auto) 13.8 H (2-11) % Eos % (Auto) 7.5 H (0-4) % Baso % (Auto) 1.5 (0-2) % Lymph # (Auto) 1.5 (1.2-4.9) X10*3/uL [place] # (Auto) 0.7 (0.1-1.2) X10*3/uL Eos # (Auto) 0.4 (0.0-0.4) X10*3/uL Baso # (Auto) 0.1 (0.0-0.2) X10*3/uL Abs Immat Gran (auto) 0.02 (0.00-0.03) X10*3/uL Absolute Neuts (auto) 2.2 (2.0-8.3) x10*3/uL Absolute Nucleated RBC 0.000 (0.0-0.012) X10*3/uL Nucleated RBC % (auto) 0.0 (0.0-0.2) /100WBC PT (11.1-13.3) SEC INR (0.9-1.1) APTT (26.0-36.4) SEC Sodium 144 (135-145) mmol/L Potassium 3.1 L (3.3-5.1) mmol/L Chloride 103 (96-108) mmol/L Carbon Dioxide 29 (22-29) mmol/L Anion Gap 15 (12-20) BUN 5 L (9-16) mg/dL Creatinine 0.64 (0.5-1.4) mg/dL Estim Creat Clear Calc 95.5 Estimated GFR > 60 Random Glucose 157 H (60-115) mg/dL Lactic Acid (0.5-2.0) mmol/L Calcium 8.5 (8.4-10.2) mg/dL Total Bilirubin 0.8 (0.0-1.0) mg/dL AST 35 H (5-31) U/L ALT 26 (0-31) U/L Alkaline Phosphatase 76 (39-117) U/L Troponin I High Sens 20.3 H D (<3.5-17.0) ng/L B-Natriuretic Peptide (<100) pg/mL Total Protein 6.7 (6.5-8.0) g/dL Albumin 3.5 (3.5-5.0) g/dL Ethyl Alcohol 363 H* mg/dL COVID-19 (SIMONE) (Negative) COVID-19 Clin Com Influenza Type A (CATE) (Negative) Influenza Type B (CATE) (Negative) Influenza A & B Note 11/06/22 11/06/22 11/06/22 Range/Units 15:49 15:49 15:49 WBC (4.8-10.8) X10*3/uL RBC (4.20-5.50) X10*6/uL Hgb (12.0-16.0) g/dl Hct (37.0-47.0) % MCV (80.0-98.0) fL MCH (27.0-33.0) pg MCHC (31.0-35.0) g/dl RDW (11.0-16.0) % Plt Count (160-400) X10*3/uL MPV (9.4-12.3) fL Immature Gran % (Auto) (0.0-0.4) % Neut % (Auto) (45-73) % Lymph % (Auto) (20-40) % [place] % (Auto) (2-11) % Eos % (Auto) (0-4) % Baso % (Auto) (0-2) % Lymph # (Auto) (1.2-4.9) X10*3/uL [place] # (Auto) (0.1-1.2) X10*3/uL Eos # (Auto) (0.0-0.4) X10*3/uL Baso # (Auto) (0.0-0.2) X10*3/uL Abs Immat Gran (auto) (0.00-0.03) X10*3/uL Absolute Neuts (auto) (2.0-8.3) x10*3/uL Absolute Nucleated RBC (0.0-0.012) X10*3/uL Nucleated RBC % (auto) (0.0-0.2) /100WBC PT 13.3 (11.1-13.3) SEC INR 1.1 (0.9-1.1) APTT 32.0 (26.0-36.4) SEC Sodium (135-145) mmol/L Potassium (3.3-5.1) mmol/L Chloride (96-108) mmol/L Carbon Dioxide (22-29) mmol/L Anion Gap (12-20) BUN (9-16) mg/dL Creatinine (0.5-1.4) mg/dL Estim Creat Clear Calc Estimated GFR Random Glucose (60-115) mg/dL Lactic Acid (0.5-2.0) mmol/L Calcium (8.4-10.2) mg/dL Total Bilirubin (0.0-1.0) mg/dL AST (5-31) U/L ALT (0-31) U/L Alkaline Phosphatase (39-117) U/L Troponin I High Sens (<3.5-17.0) ng/L B-Natriuretic Peptide 75 (<100) pg/mL Total Protein (6.5-8.0) g/dL Albumin (3.5-5.0) g/dL Ethyl Alcohol mg/dL COVID-19 (SIMONE) Negative (Negative) COVID-19 Clin Com See Note Influenza Type A (CATE) (Negative) Influenza Type B (CATE) (Negative) Influenza A & B Note 11/06/22 11/06/22 11/06/22 Range/Units 15:49 17:25 18:10 WBC (4.8-10.8) X10*3/uL RBC (4.20-5.50) X10*6/uL Hgb (12.0-16.0) g/dl Hct (37.0-47.0) % MCV (80.0-98.0) fL MCH (27.0-33.0) pg MCHC (31.0-35.0) g/dl RDW (11.0-16.0) % Plt Count (160-400) X10*3/uL MPV (9.4-12.3) fL Immature Gran % (Auto) (0.0-0.4) % Neut % (Auto) (45-73) % Lymph % (Auto) (20-40) % [place] % (Auto) (2-11) % Eos % (Auto) (0-4) % Baso % (Auto) (0-2) % Lymph # (Auto) (1.2-4.9) X10*3/uL [place] # (Auto) (0.1-1.2) X10*3/uL Eos # (Auto) (0.0-0.4) X10*3/uL Baso # (Auto) (0.0-0.2) X10*3/uL Abs Immat Gran (auto) (0.00-0.03) X10*3/uL Absolute Neuts (auto) (2.0-8.3) x10*3/uL Absolute Nucleated RBC (0.0-0.012) X10*3/uL Nucleated RBC % (auto) (0.0-0.2) /100WBC PT (11.1-13.3) SEC INR (0.9-1.1) APTT (26.0-36.4) SEC Sodium (135-145) mmol/L Potassium (3.3-5.1) mmol/L Chloride (96-108) mmol/L Carbon Dioxide (22-29) mmol/L Anion Gap (12-20) BUN (9-16) mg/dL Creatinine (0.5-1.4) mg/dL Estim Creat Clear Calc Estimated GFR Random Glucose (60-115) mg/dL Lactic Acid 2.1 H* (0.5-2.0) mmol/L Calcium (8.4-10.2) mg/dL Total Bilirubin (0.0-1.0) mg/dL AST (5-31) U/L ALT (0-31) U/L Alkaline Phosphatase (39-117) U/L Troponin I High Sens Cancelled (<3.5-17.0) ng/L B-Natriuretic Peptide (<100) pg/mL Total Protein (6.5-8.0) g/dL Albumin (3.5-5.0) g/dL Ethyl Alcohol mg/dL COVID-19 (SIMONE) (Negative) COVID-19 Clin Com Influenza Type A (CATE) Negative (Negative) Influenza Type B (CATE) Negative (Negative) Influenza A & B Note See Note 11/06/22 Range/Units 19:05 WBC (4.8-10.8) X10*3/uL RBC (4.20-5.50) X10*6/uL Hgb (12.0-16.0) g/dl Hct (37.0-47.0) % MCV (80.0-98.0) fL MCH (27.0-33.0) pg MCHC (31.0-35.0) g/dl RDW (11.0-16.0) % Plt Count (160-400) X10*3/uL MPV (9.4-12.3) fL Immature Gran % (Auto) (0.0-0.4) % Neut % (Auto) (45-73) % Lymph % (Auto) (20-40) % [place] % (Auto) (2-11) % Eos % (Auto) (0-4) % Baso % (Auto) (0-2) % Lymph # (Auto) (1.2-4.9) X10*3/uL [place] # (Auto) (0.1-1.2) X10*3/uL Eos # (Auto) (0.0-0.4) X10*3/uL Baso # (Auto) (0.0-0.2) X10*3/uL Abs Immat Gran (auto) (0.00-0.03) X10*3/uL Absolute Neuts (auto) (2.0-8.3) x10*3/uL Absolute Nucleated RBC (0.0-0.012) X10*3/uL Nucleated RBC % (auto) (0.0-0.2) /100WBC PT (11.1-13.3) SEC INR (0.9-1.1) APTT (26.0-36.4) SEC Sodium (135-145) mmol/L Potassium (3.3-5.1) mmol/L Chloride (96-108) mmol/L Carbon Dioxide (22-29) mmol/L Anion Gap (12-20) BUN (9-16) mg/dL Creatinine (0.5-1.4) mg/dL Estim Creat Clear Calc Estimated GFR Random Glucose (60-115) mg/dL Lactic Acid (0.5-2.0) mmol/L Calcium (8.4-10.2) mg/dL Total Bilirubin (0.0-1.0) mg/dL AST (5-31) U/L ALT (0-31) U/L Alkaline Phosphatase (39-117) U/L Troponin I High Sens 3.6 D (<3.5-17.0) ng/L B-Natriuretic Peptide (<100) pg/mL Total Protein (6.5-8.0) g/dL Albumin (3.5-5.0) g/dL Ethyl Alcohol mg/dL COVID-19 (SIMONE) (Negative) COVID-19 Clin Com Influenza Type A (CATE) (Negative) Influenza Type B (CATE) (Negative) Influenza A & B Note Independent Interpretation I performed an independent interpretation of an: EKG Interpretation: Rate: 93 Rhythm:? Normal sinus rhythm Normal P waves.? Normal DARREN.?? Normal QRS complex.?? ST T wave :??No ST elevation, no ST depression, no T-wave inversion qTC: 465 prior studies:? October 2022 The study has been interpreted contemporaneously by me. Radiology Impression Discussion of test interpretation with radiology: I have reviewed the radiologist's reading. External Record Review External record reviewed: Outpatient record Chronic Conditions Patient?s care impacted by: Other (COPD) Discharge Plan Discharge Clinical Impression: Acute exacerbation of chronic obstructive airways disease, Acute respiratory failure with hypoxia Patient Disposition: Admitted As Inpatient Interventions: Admission Worksheet (ED) Last Done: 11/06/22 20:15 Discharge Date/Time: 11/06/22 20:40
--- NOTE | 2022-11-06 15:55 | PC.NURSE ---
pt alert and oriented to self and situation only - pt unaware of what year it is. pt verbalizes that she is homeless and needs a place to stay. pt's chief complaint is SOB. pt was satting around 87%-89%, nasal cannula applied at 2L. pt c/o chest pain only on inspiration. denies any other sx at the moment. 20gIV placed in the right AC w/o complications. tech's bedside performing EKG and drawing labs. call lopes placed within reach.
[2022-11-06 15:59] LABS: Basophils Absolute Auto 0.1 X10*3/uL (0.0-0.2); Basophils Percent Auto 1.5 % (0-2); Mean Corpuscular HGB Conc 29.7 g/dl (31.0-35.0); Mean Corpuscular Hemoglobin 21.8 pg (27.0-33.0); Red Cell Distribution Width 21.2 % (11.0-16.0); SCAN SMEAR FLAG 1
[2022-11-06 16:01] LABS: Eosinophils Absolute Auto 0.4 X10*3/uL (0.0-0.4); Eosinophils Percent Auto 7.5 % (0-4); Hematocrit 31.6 % (37.0-47.0); Hemoglobin 9.4 g/dl (12.0-16.0); Imm Gran Abs Auto 0.02 X10*3/uL (0.00-0.03); Imm Gran Pct Auto 0.4 % (0.0-0.4); Lymphocytes Absolute Auto 1.5 X10*3/uL (1.2-4.9); Mean Corpuscular Volume 73.3 fL (80.0-98.0); Mean Platelet Volume 10.6 fL (9.4-12.3); Monocytes Absolute Auto 0.7 X10*3/uL (0.1-1.2); Monocytes Percent Auto 13.8 % (2-11); Neutrophils Absolute Auto 2.2 x10*3/uL (2.0-8.3); Neutrophils Percent Auto 45.8 % (45-73); Platelet Count 127 X10*3/uL (160-400); Red Blood Count 4.31 X10*6/uL (4.20-5.50); White Blood Count 4.8 X10*3/uL (4.8-10.8)
[2022-11-06 16:02] LABS: MANUAL DIFF FLAG NO; PLT ABN DIST 1
[2022-11-06 16:09] LABS: INTERNATIONAL NORM RATIO 1.1 (0.9-1.1); Prothrombin Time 13.3 SEC (11.1-13.3)
--- NOTE | 2022-11-06 16:13 | PC.NURSE ---
pt verbalizing that she has a hx of chronic alcohol abuse - pt states that she drank half a pint of peppermint schnapps prior to ED arrival. pt states that she is currently worried about having DTs. notified pt that she is not near having DTs d/t just consuming the amount of alcohol that she did.
[2022-11-06 16:19] LABS: COVID-19 Test Negative (Negative); IDNOW Serial# 9DB6401D; IDNOW Serial# BCCEAD1C; Influenza A Negative (Negative); Influenza B2 Negative (Negative)
[2022-11-06 16:26] LABS: Alanine Aminotransferase 26 U/L (0-31); Albumin Level 3.5 g/dL (3.5-5.0); Alkaline Phosphatase 76 U/L (39-117); Anion Gap 15 (12-20); Aspartate Amino Transferase 35 U/L (5-31); Bilirubin Total 0.8 mg/dL (0.0-1.0); Blood Urea Nitrogen 5 mg/dL (9-16); Calcium 8.5 mg/dL (8.4-10.2); Carbon Dioxide 29 mmol/L (22-29); Chloride 103 mmol/L (96-108); Creatinine Clr Calc Pharmacy 95.5; Estimated Glomerular Filt Rate > 60; Glucose Random 157 mg/dL (60-115); Potassium 3.1 mmol/L (3.3-5.1); Sodium 144 mmol/L (135-145); Total Protein 6.7 g/dL (6.5-8.0)
[2022-11-06 16:28] LABS: B Type Natriuretic Peptide 75 pg/mL (<100)
[2022-11-06 16:38] LABS: Troponin-I High Sensitivity 20.3 ng/L (<3.5-17.0)
[2022-11-06] MEDS: Albuterol Sulfate 5 MG, Albuterol/Iprat 2.5/0.5MG 3 ML 3 ML INHALE (16:40)
[2022-11-06] MEDS: methylPREDNISolone Sod Succ 125 MG/2 ML VIAL IVPUSH (16:44)
--- NOTE | 2022-11-06 16:45 | PC.NURSE ---
medication administered per provider order. RT bedside giving pt breathing treatment. lung sounds clear throughout prior to breathing treatment. call lopes placed within reach.
[2022-11-06 17:36] LABS: Ethanol 363 mg/dL
--- NOTE | 2022-11-06 18:07 | PC.NURSE ---
pt ambulated with tech's and walker to see if she was able to wean off of oxygen. pt desatted to 83%-89% on RA. pt ambulated back to room and put back on 2L oxygen - pt O2% currently at 93% on 2L. pt came back to room and it was unaware that pt took her bag to the bathroom and drank from her bottle of alcohol that was in her bag. pt becoming aggressive and combative and refused to get back into bed because we told her that we needed to confiscate the bottle. pt refused. security called. pt's belongings taken to security and searched. bottle taken to decon. pt being verbally abusive to security staff. tech's now drawing labs and sending them over. pt now being calm and cooperative. security now gone from room.
[2022-11-06] MEDS: cefTRIAXone sodium 1 GM in 0.9 % Sodium Chloride 50 ML IV (18:19)
--- NOTE | 2022-11-06 18:21 | PC.NURSE ---
medications administered per provider order.
[2022-11-06 18:32] LABS: Lactic Acid 2.1 mmol/L (0.5-2.0)
--- NOTE | 2022-11-06 19:21 | PM.IMHP ---
History of Present Illness Date of Service: 11/06/22 Chief Complaint: Dyspnea This is a 57-year-old female with pertinent history of COPD not on home oxygen, mood disorder, alcohol use disorder homeless who presents to the emergency department for evaluation of dyspnea. Patient states she has been having shortness of breath, worse with exertion that has been ongoing for a while. Patient states her medications including inhaler are in a storage place which she does not have access to. Has not taking her inhaler in a while. Also complains of wheezing and nonproductive cough. No fever or chills. No chest discomfort, palpitations, abdominal pain, changes in urinary or bowel habits. Does endorse history of alcohol use disorder. Also has a history of alcohol withdrawal seizures. In the emergency department, patient was found to be wheezing and hypoxemic. Alcohol level found to be elevated. Review of Systems Constitutional: Constitutional: Reports fatigue, Reports lethargy and Reports malaise Cardiovascular: Cardiovascular: Reports dyspnea on exertion Respiratory: Respiratory: Reports cough, Reports dyspnea on exertion and Reports wheezing Gastrointestinal: Gastrointestinal: Reports no additional gastrointestinal complaints Genitourinary: Genitourinary: Reports no additional female genitourinary complaints Endocrine: Endocrine: Reports fatigue Allergic/Immunologic: Allergic/Immunologic: Reports wheezing [facility] Medical History Alcohol abuse with withdrawal Alcohol use disorder, severe, dependence Alcoholic cirrhosis of liver Anxiety Cirrhosis of liver COPD (chronic obstructive pulmonary disease) Depression Hypertension MDD (major depressive disorder), recurrent episode, moderate Family History Mother Pancreatic cancer Surgical History H/O foot surgery Social History Household Members: Significant Other Household Members Other:: boyfriend Housing: Homeless Do you presently have visiting nurse or other home services: No Alcohol intake: current Alcohol intake frequency: 3 or more drinks per day Alcohol type: hard liquor Patient Tobacco Use Status: Former Tobacco user Smoked in Last 30 Days: No Use of substances other than those prescribed or required for medical reasons: No Substance Use Type: Marijuana Advance Directives: Yes Advance Directives on File: Yes Advance Directives Date on File: 03/11/21 Patient : No service: No Current occupational status: unemployed Meds Allergies Allergy/AdvReac Type Severity Reaction Status Date / Time Penicillins Allergy Mild Rash Verified 08/17/22 06:35 levofloxacin [From Levaquin] AdvReac Severe Difficulty Verified 08/17/22 06:35 Breathing peanut AdvReac Severe Anaphylaxis Verified 08/17/22 06:35 Peanut Butter AdvReac Severe Anaphylaxis Verified 08/17/22 06:35 Sulfa (Sulfonamide AdvReac Severe Difficulty Verified 08/17/22 06:35 Antibiotics) Breathing Active Medications: Current Medications Acetaminophen (Acetaminophen 325 Mg Tablet) 650 mg PO Q6H PRN PRN Reason: Pain, Mild (Pain Scale 1-3) Albuterol/Ipratropium (Albuterol/Iprat 2.5/0.5mg 3 Ml Ampul.Neb) 3 ml INHALE RQ4H WHILE AWAKE COUNTS INCLUDE 234 BEDS AT THE [facility] Enoxaparin Sodium (Enoxaparin Sodium 40 Mg/0.4 Ml Syringe) 40 mg SUBCUT Q24H SANDRA Folic Acid (Folic Acid 1 Mg Tablet) 1 mg PO DAILY COUNTS INCLUDE 234 BEDS AT THE [facility] Thiamine HCl 100 mg/ Sodium (Chloride) 101 mls @ 202 mls/hr IV ONCE ONE Stop: 11/06/22 19:43 Lorazepam (Lorazepam 2 Mg/Ml Vial) 1 mg IVPUSH STAT STA Stop: 11/06/22 19:15 Melatonin (Melatonin 3 Mg Tablet) 6 mg PO BEDTIME PRN PRN Reason: Insomnia Methylprednisolone Sodium Succinate (Methylprednisolone Sod Succ 40 Mg/Ml Vial) 40 mg IVPUSH Q12H SANDRA Ondansetron HCl (Ondansetron Hcl 4 Mg/2 Ml Vial) 4 mg IVPUSH Q8H PRN PRN Reason: Nausea and Vomiting Sodium Chloride (0.9 % Sodium Chloride Flush 3 Ml Syringe) 3 ml IVFLUSH QSHIFT SANDRA Thiamine HCl (Thiamine Hcl 100 Mg Tablet) 100 mg PO DAILY COUNTS INCLUDE 234 BEDS AT THE [facility] Home Medications Medication Instructions Recorded Confirmed Last Taken Type multivitamin with folic acid 400 1 tab PO DAILY 06/12/22 06/29/22 Unknown History mcg tablet (Daily-Nguyen (with folic acid)) thiamine HCl (vitamin B1) 100 mg 100 mg PO DAILY 06/12/22 06/29/22 Unknown History tablet (Vitamin B-1) Zoloft 06/29/22 Unknown History acamprosate 333 mg tablet,delayed 333 mg PO TID 06/29/22 06/29/22 Unknown History release acetaminophen 500 mg tablet 1,000 mg PO Q6H PRN Pain 06/29/22 06/29/22 Unknown History calcium carbonate 500 mg calcium 1,000 mg PO DAILY PRN Heartburn 06/29/22 06/29/22 Unknown History (1,250 mg) chewable tablet diazepam 5 mg tablet 5 mg PO DAILY 06/29/22 06/29/22 Unknown History diazepam 5 mg tablet 5 mg PO Q12H 06/29/22 06/29/22 Unknown History diazepam 5 mg tablet 5 mg PO Q6H 06/29/22 06/29/22 Unknown History diazepam 5 mg tablet 5 mg PO Q8H 06/29/22 06/29/22 Unknown History gabapentin 100 mg capsule 200 mg PO BID 06/29/22 Unknown History ibuprofen 200 mg tablet 400 mg PO Q8H PRN Pain 06/29/22 06/29/22 Unknown History prednisone 20 mg tablet 40 mg PO DAILY 06/29/22 06/29/22 Unknown History Physical Exam Vital Signs and Narrative: Vital Signs: Last Vital Signs Temp 98.2 F 11/06/22 16:00 Pulse 93 11/06/22 18:00 Resp 18 11/06/22 18:00 BP 102/51 L 11/06/22 18:00 Pulse Ox 96 11/06/22 18:00 O2 Del Method Nasal Cannula 11/06/22 18:00 O2 Flow Rate 2 11/06/22 18:00 BMI result Body Mass Index 42.3 Middle-aged female lying in bed in mild distress Neck supple, no JVD Regular rate and rhythm, S1-S2 heard Bilateral wheezing without crackles Abdomen soft nontender, no guarding, no rigidity Patient is awake, alert and oriented to self, place, time and person ; no focal motor deficit Psych: Normal mood No pedal edema Results Labs 11/06/22 15:49 11/06/22 15:49 Labs: Laboratory Results - last 24 hr 11/06/22 11/06/22 11/06/22 15:49 15:49 15:49 MCV 73.3 L MCH 21.8 L MCHC 29.7 L RDW 21.2 H Plt Count 127 L D MPV 10.6 Immature Gran % (Auto) 0.4 Neut % (Auto) 45.8 Lymph % (Auto) 31.0 [place] % (Auto) 13.8 H Eos % (Auto) 7.5 H Baso % (Auto) 1.5 Lymph # (Auto) 1.5 [place] # (Auto) 0.7 Eos # (Auto) 0.4 Baso # (Auto) 0.1 Abs Immat Gran (auto) 0.02 Absolute Neuts (auto) 2.2 Absolute Nucleated RBC 0.000 Nucleated RBC % (auto) 0.0 PT INR APTT Anion Gap 15 Estim Creat Clear Calc 95.5 Estimated GFR > 60 Random Glucose 157 H Lactic Acid Calcium 8.5 Total Bilirubin 0.8 AST 35 H ALT 26 Alkaline Phosphatase 76 B-Natriuretic Peptide 75 Total Protein 6.7 Albumin 3.5 Ethyl Alcohol 363 H* COVID-19 (SIMONE) COVID-19 Clin Com Influenza Type A (CATE) Influenza Type B (CATE) Influenza A & B Note 11/06/22 11/06/22 11/06/22 15:49 15:49 15:49 MCV MCH MCHC RDW Plt Count MPV Immature Gran % (Auto) Neut % (Auto) Lymph % (Auto) [place] % (Auto) Eos % (Auto) Baso % (Auto) Lymph # (Auto) [place] # (Auto) Eos # (Auto) Baso # (Auto) Abs Immat Gran (auto) Absolute Neuts (auto) Absolute Nucleated RBC Nucleated RBC % (auto) PT 13.3 INR 1.1 APTT 32.0 Anion Gap Estim Creat Clear Calc Estimated GFR Random Glucose Lactic Acid Calcium Total Bilirubin AST ALT Alkaline Phosphatase B-Natriuretic Peptide Total Protein Albumin Ethyl Alcohol COVID-19 (SIMONE) Negative COVID-19 Clin Com See Note Influenza Type A (CATE) Negative Influenza Type B (CATE) Negative Influenza A & B Note See Note 11/06/22 18:10 MCV MCH MCHC RDW Plt Count MPV Immature Gran % (Auto) Neut % (Auto) Lymph % (Auto) [place] % (Auto) Eos % (Auto) Baso % (Auto) Lymph # (Auto) [place] # (Auto) Eos # (Auto) Baso # (Auto) Abs Immat Gran (auto) Absolute Neuts (auto) Absolute Nucleated RBC Nucleated RBC % (auto) PT INR APTT Anion Gap Estim Creat Clear Calc Estimated GFR Random Glucose Lactic Acid 2.1 H* Calcium Total Bilirubin AST ALT Alkaline Phosphatase B-Natriuretic Peptide Total Protein Albumin Ethyl Alcohol COVID-19 (SIMONE) COVID-19 Clin Com Influenza Type A (CATE) Influenza Type B (CATE) Influenza A & B Note Imaging Radiologist's Impressions: Impressions Chest X-Ray 11/06/22 15:58 IMPRESSION: No acute cardiopulmonary process. Assessment and Plan (1) Acute exacerbation of chronic obstructive airways disease: Status: Acute (2) Acute respiratory failure with hypoxia: Status: Acute Plan This is a 57-year-old female with pertinent history of COPD not on home oxygen, mood disorder, alcohol use disorder homeless who presents to the emergency department for evaluation of dyspnea. #. Acute hypoxemic respiratory failure due to acute exacerbation of COPD. Will admit patient with supplemental oxygen. Initiating systemic steroids. Scheduled and p.r.n. DuoNebs. Initiating azithromycin for pleiotropic effect. Monitor oxygen saturation and wean as tolerated. Maintain oxygen saturation greater than 88% #. Alcohol use disorder. Initiated phenobarb protocol due to concern for withdrawal. Initiating time in and folic acid. Consulted addiction team. Monitor CIWA #. Homelessness. Consulting high school social studies teacher for safe disposition #. Mood disorder. Currently off medications. Will consult psych to optimize #. Microcytic anemia. Iron panel pending #. Hypokalemia. Repleted #. Thrombocytopenia due to alcohol use disorder DVT prophylaxis: Lovenox Full code Admit as inpatient and will require two night minimum hospital stay for supplemental oxygen Time Spent With Patient Time: Total time managing care of this patient today ____ minutes. Quality Stroke Does the patient have a stroke diagnosis?: No VTE Prior VTE?: No VTE Risk Level:: Medical - moderate - high VTE Device Contraindication: Treatment Not Indicated VTE Drug Contraindication: N/A - Med Ordered
[2022-11-06] MEDS: LORazepam 2 MG/ML VIAL 1 MG IVPUSH (19:42)
[2022-11-06] MEDS: Thiamine HCL 100 MG in 0.9 % Sodium Chloride 100 ML 202 MG IV (19:44)
[2022-11-06 19:46] LABS: Troponin-I High Sensitivity 3.6 ng/L (<3.5-17.0)
[2022-11-06] MEDS: Albuterol/Iprat 2.5/0.5MG 3 ML AMPUL.NEB INHALE (19:51)
--- NOTE | 2022-11-06 20:07 | PC.NURSE ---
reprot called to [facility] transport pending completion of breathing treatment
--- NOTE | 2022-11-06 20:11 | PHA.MEDREC ---
Pharmacy Consult ? Medication Reconciliation Pharmacy has completed the medication reconciliation. Patient confirmed medications. Was slightly confused and did just say yes to a lot of medicaitons. Reported taking acramprosate but it has not been filled since 07/2022 for a 30 day supply therefore I removed from the list. Manisha Willis, PharmD
[2022-11-06 20:13] LABS: Reflex Lactate? Lactic Acid Added
[2022-11-06 21:39] LABS: Iron 11 mcg/dL (30-160); Percent Iron Saturation 3 % (15-50); Total Iron Binding Capacity 330 mcg/dL (228-428); Unsaturated Iron Binding 319 ug/dL
[2022-11-06] MEDS: Azithromycin 500 MG in 0.9 % Sodium Chloride 250 ML 125 MG IV (21:43)
[2022-11-06] MEDS: Enoxaparin Sodium 40 MG/0.4 ML SYRINGE SUBCUT (21:44)
[2022-11-06] MEDS: Potassium Chloride Packet 20 MEQ PACKET 40 MEQ PO (21:44)
[2022-11-06] MEDS: PHENobarbitaL sodium 130 MG/ML IM ONCE 180 MG IM (21:47)
[2022-11-06] MEDS: 0.9 % Sodium Chloride Flush 3 ML SYRINGE IVFLUSH (21:49)
[2022-11-06 22:10] LABS: ~Lactic Acid-LAB USE ONLY 2.4 mmol/L (0.5-2.0)
[2022-11-06 23:15] LABS: Reflex Lactate? 2 Y
[2022-11-06 23:47] LABS: ~Lactic Acid-LAB USE ONLY 2.5 mmol/L (0.5-2.0)
[2022-11-07] MEDS: PHENobarbitaL sodium 130 MG/ML VIAL IM Q3Hx2 135 MG IM ×3 (00:06→13:13)
[2022-11-07 03:23] VITALS: BP 127/61; PULSE 81; RESP 17; TEMP 36.7; O2SAT 95
[2022-11-07] MEDS: methylPREDNISolone Sod Succ 40 MG/ML VIAL IVPUSH ×2 (05:30→15:13)
[2022-11-07 05:42] LABS: MANUAL DIFF FLAG NO
[2022-11-07 05:50] LABS: Basophils Percent Auto 0.3 % (0-2); Hematocrit 30.5 % (37.0-47.0); Hemoglobin 8.9 g/dl (12.0-16.0); Imm Gran Abs Auto 0.02 X10*3/uL (0.00-0.03); Imm Gran Pct Auto 0.5 % (0.0-0.4); Lymphocytes Absolute Auto 0.4 X10*3/uL (1.2-4.9); Lymphocytes Percent Auto 9.7 % (20-40); Mean Corpuscular HGB Conc 29.2 g/dl (31.0-35.0); Mean Corpuscular Volume 75.3 fL (80.0-98.0); Monocytes Absolute Auto 0.5 X10*3/uL (0.1-1.2); Monocytes Percent Auto 11.7 % (2-11); NRBC Pct Auto 0.5 /100WBC (0.0-0.2); Neutrophils Absolute Auto 3.1 x10*3/uL (2.0-8.3); Neutrophils Percent Auto 77.8 % (45-73); Red Blood Count 4.05 X10*6/uL (4.20-5.50); Red Cell Distribution Width 20.8 % (11.0-16.0); White Blood Count 3.9 X10*3/uL (4.8-10.8)
[2022-11-07 05:51] LABS: Platelet Count 93 X10*3/uL (160-400)
[2022-11-07 06:23] LABS: Anion Gap 17 (12-20); Blood Urea Nitrogen 5 mg/dL (9-16); Calcium 8.3 mg/dL (8.4-10.2); Carbon Dioxide 23 mmol/L (22-29); Chloride 106 mmol/L (96-108); Creatinine Clr Calc Pharmacy 106.9; Estimated Glomerular Filt Rate > 60; Glucose Random 150 mg/dL (60-115); Potassium 3.9 mmol/L (3.3-5.1); Sodium 142 mmol/L (135-145)
[2022-11-07] MEDS: Albuterol/Iprat 2.5/0.5MG 3 ML AMPUL.NEB INHALE ×3 (07:42→15:29)
[2022-11-07 07:45] VITALS: PULSE 78; RESP 16; O2SAT 96
[2022-11-07 08:09] LABS: Magnesium 1.2 mg/dL (1.6-2.6)
[2022-11-07] MEDS: Multivitamin TABLET 1 TAB PO (08:38)
[2022-11-07] MEDS: PHENobarbitaL 30 MG TABLET PO ×2 (08:38→20:08)
[2022-11-07] MEDS: Omeprazole 20 MG CAPSULE.DR PO ×2 (08:38→15:13)
[2022-11-07] MEDS: Calcium Carbonate 750 MG TAB.CHEW PO (08:38)
[2022-11-07] MEDS: Acetaminophen 325 MG TABLET 650 MG PO (08:38)
[2022-11-07] MEDS: Ferrous Sulfate 324 MG TABLET.DR PO (08:38)
[2022-11-07] MEDS: ondansetron HCL 4 MG/2 ML VIAL IVPUSH (08:38)
[2022-11-07] MEDS: Magnesium Oxide 400 MG TABLET PO (08:39)
[2022-11-07] MEDS: 0.9 % Sodium Chloride Flush 3 ML SYRINGE IVFLUSH ×3 (08:39→20:08)
[2022-11-07] MEDS: Pyridoxine HCl (Vitamin B6) 50 MG TABLET PO (08:39)
[2022-11-07] MEDS: guaiFENesin 100 MG/5 ML LIQUID PO (09:52)
[2022-11-07] MEDS: Magnesium Sulfate/H2O 2 GM/50 ML PIGGYBACK IV ×2 (09:52→15:13)
--- NOTE | 2022-11-07 10:31 | MHC.CLN ---
NUTRITION CONSULT FOR SKIN REDNESS AND BRUISING. PATIENT WITH SKIN FUNGUS, NO PRESSURE AREAS. NO ADDITIONAL NUTRITION INTERVENTIONS AT THIS TIME.
[2022-11-07 12:02] VITALS: PULSE 100; RESP 16; O2SAT 96
--- NOTE | 2022-11-07 13:11 | HO.PM.IMPN ---
Subjective Subjective Date of Service: 11/07/22 Interval History: seen and examined this morning follow up for alcohol withdrawal, copd exacerbation feels a little anxious no significant sob, dry cough Review of Systems Review of Systems: Yes all other systems are reviewed and are negative Constitutional Constitutional: Denies chills and Denies fever(s) Cardiovascular Cardiovascular: Denies chest pain, Denies palpitations and Reports dyspnea Respiratory Respiratory: Reports cough and Reports dyspnea Gastrointestinal Gastrointestinal: Denies abdominal pain Endocrine Endocrine: Denies palpitations Physical Exam Vital Signs: Vital Signs: Last Vital Signs Temp 98.0 F 11/07/22 03:23 Pulse 100 11/07/22 12:02 Resp 16 11/07/22 12:02 BP 127/61 11/07/22 03:23 Pulse Ox 95 11/07/22 03:23 O2 Del Method Nasal Cannula 11/07/22 03:23 O2 Flow Rate 1 11/07/22 03:23 BMI result Body Mass Index 42.1 Const: General: cooperative, comfortable, no acute distress, alert and awake Nutritional Appearance: overweight Orientation/consciousness: patient oriented x3 Resp: Other: expiratory wheezing Effort & Inspection: normal respiratory effort, able to speak in complete sentences, no respiratory distress and no use of accessory muscles Cardio: Rate: regular rate Heart sounds: S1 normal heart sound present and S2 normal heart sound present GI: Inspection: No distended Palpation (GI): Soft to palpation and nontender Neuro: General: patient oriented x3, moves all extremities and CN's II-XI intact bilaterally Extrem: General: Yes no pedal edema Objective Data Active Medications Acetaminophen (Acetaminophen 325 Mg Tablet) 650 mg PO Q6H PRN PRN Reason: Pain, Mild (Pain Scale 1-3) Last Admin: 11/07/22 08:38 Dose: 650 mg Documented By: COTKRISTY Albuterol/Ipratropium (Albuterol/Iprat 2.5/0.5mg 3 Ml Ampul.Neb) 3 ml INHALE RQ4H WHILE AWAKE SANDRA Last Admin: 11/07/22 12:01 Dose: 3 ml Documented By: BIPIN Albuterol/Ipratropium (Albuterol/Iprat 2.5/0.5mg 3 Ml Ampul.Neb) 3 ml INHALE Q4H PRN PRN Reason: Wheezing Calcium Carbonate (Calcium Carbonate 750 Mg Tab.Chew) 750 mg PO DAILY PRN PRN Reason: Heartburn Last Admin: 11/07/22 08:38 Dose: 750 mg Documented By: JEANIE Enoxaparin Sodium (Enoxaparin Sodium 40 Mg/0.4 Ml Syringe) 40 mg SUBCUT Q24H [facility] Last Admin: 11/06/22 21:44 Dose: 40 mg Documented By: GERSON Ferrous Sulfate (Ferrous Sulfate 324 Mg Tablet.) 324 mg PO DAILY [facility] Last Admin: 11/07/22 08:38 Dose: 324 mg Documented By: JEANIE Gabapentin (Gabapentin 100 Mg Capsule) 200 mg PO BID [facility] Guaifenesin (Guaifenesin 100 Mg/5 Ml Liquid) 5 ml PO Q6H PRN PRN Reason: Cough Last Admin: 11/07/22 09:52 Dose: 5 ml Documented By: JEANIE Hydroxyzine HCl (Hydroxyzine Hcl 25 Mg Tablet) 25 mg PO BID PRN PRN Reason: Anxiety Magnesium Oxide (Magnesium Oxide 400 Mg Tablet) 400 mg PO DAILY [facility] Last Admin: 11/07/22 08:39 Dose: 400 mg Documented By: JEANIE Melatonin (Melatonin 3 Mg Tablet) 6 mg PO BEDTIME PRN PRN Reason: Insomnia Methylprednisolone Sodium Succinate (Methylprednisolone Sod Succ 40 Mg/Ml Vial) 40 mg IVPUSH Q12H [facility] Last Admin: 11/07/22 05:30 Dose: 40 mg Documented By: GERSON Multivitamins/Vitamin C (Multivitamin Tablet) 1 tab PO DAILY [facility] Last Admin: 11/07/22 08:38 Dose: 1 tab Documented By: JEANIE Nystatin (Nystatin Powder 15 Gm Bottle) 1 appl TOPICAL BID [facility]; Protocol Last Admin: 11/07/22 08:39 Dose: Not Given Documented By: JEANIE Non-Admin Reason: Med Not Available Omeprazole (Omeprazole 20 Mg Capsule.) 20 mg PO BID@0630,1630 [facility] Last Admin: 11/07/22 08:38 Dose: 20 mg Documented By: JEANIE Ondansetron HCl (Ondansetron Hcl 4 Mg/2 Ml Vial) 4 mg IVPUSH Q8H PRN PRN Reason: Nausea and Vomiting Last Admin: 11/07/22 08:38 Dose: 4 mg Documented By: HO.COTEMA Pharmacy Consult (Consult Rx Etoh Phenob Im/Po) 1 each MISCELLANE ONCE PRN; Protocol PRN Reason: Consult order Phenobarbital (Phenobarbital 30 Mg Tablet) 30 mg PO BID [facility]; Protocol Stop: 11/08/22 21:01 Last Admin: 11/07/22 08:38 Dose: 30 mg Documented By: COTKRISTY Phenobarbital (Phenobarbital 15 Mg Tablet) 15 mg PO BID [facility] Stop: 11/10/22 21:01 Phenobarbital (Phenobarbital 15 Mg Tablet) 15 mg PO DAILY [facility]; Protocol Stop: 11/12/22 09:01 Pyridoxine HCl (Pyridoxine Hcl (Vitamin B6) 50 Mg Tablet) 50 mg PO DAILY [facility] Last Admin: 11/07/22 08:39 Dose: 50 mg Documented By: JEANIE Sodium Chloride (0.9 % Sodium Chloride Flush 3 Ml Syringe) 3 ml IVFLUSH QSHIFT [facility] Last Admin: 11/07/22 08:39 Dose: 3 ml Documented By: JEANIE Labs 11/07/22 05:04 11/07/22 05:04 Labs: Laboratory Results - last 24 hr 11/06/22 11/06/22 11/06/22 15:49 15:49 15:49 MCV 73.3 L MCH 21.8 L MCHC 29.7 L RDW 21.2 H Plt Count 127 L D MPV 10.6 Immature Gran % (Auto) 0.4 Neut % (Auto) 45.8 Lymph % (Auto) 31.0 [place] % (Auto) 13.8 H Eos % (Auto) 7.5 H Baso % (Auto) 1.5 Lymph # (Auto) 1.5 [place] # (Auto) 0.7 Eos # (Auto) 0.4 Baso # (Auto) 0.1 Abs Immat Gran (auto) 0.02 Absolute Neuts (auto) 2.2 Absolute Nucleated RBC 0.000 Nucleated RBC % (auto) 0.0 PT INR APTT Anion Gap 15 Estim Creat Clear Calc 95.5 Estimated GFR > 60 Random Glucose 157 H Lactic Acid Lactic Acid F/U @ 2Hr Lactic Acid F/U @ 4Hr Calcium 8.5 Magnesium Iron TIBC % Saturation Unsat Iron Binding Total Bilirubin 0.8 AST 35 H ALT 26 Alkaline Phosphatase 76 B-Natriuretic Peptide 75 Total Protein 6.7 Albumin 3.5 Ethyl Alcohol 363 H* COVID-19 (SIMONE) COVID-19 Clin Com Influenza Type A (CATE) Influenza Type B (CATE) Influenza A & B Note 11/06/22 11/06/22 11/06/22 15:49 15:49 15:49 MCV MCH MCHC RDW Plt Count MPV Immature Gran % (Auto) Neut % (Auto) Lymph % (Auto) [place] % (Auto) Eos % (Auto) Baso % (Auto) Lymph # (Auto) [place] # (Auto) Eos # (Auto) Baso # (Auto) Abs Immat Gran (auto) Absolute Neuts (auto) Absolute Nucleated RBC Nucleated RBC % (auto) PT 13.3 INR 1.1 APTT 32.0 Anion Gap Estim Creat Clear Calc Estimated GFR Random Glucose Lactic Acid Lactic Acid F/U @ 2Hr Lactic Acid F/U @ 4Hr Calcium Magnesium Iron TIBC % Saturation Unsat Iron Binding Total Bilirubin AST ALT Alkaline Phosphatase B-Natriuretic Peptide Total Protein Albumin Ethyl Alcohol COVID-19 (SIMONE) Negative COVID-19 [facility] Com See Note Influenza Type A (CATE) Negative Influenza Type B (CATE) Negative Influenza A & B Note See Note 11/06/22 11/06/22 11/06/22 18:10 20:53 20:53 MCV MCH MCHC RDW Plt Count MPV Immature Gran % (Auto) Neut % (Auto) Lymph % (Auto) [place] % (Auto) Eos % (Auto) Baso % (Auto) Lymph # (Auto) [place] # (Auto) Eos # (Auto) Baso # (Auto) Abs Immat Gran (auto) Absolute Neuts (auto) Absolute Nucleated RBC Nucleated RBC % (auto) PT INR APTT Anion Gap Estim Creat Clear Calc Estimated GFR Random Glucose Lactic Acid 2.1 H* Lactic Acid F/U @ 2Hr 2.4 H* Lactic Acid F/U @ 4Hr Calcium Magnesium Iron 11 L TIBC 330 % Saturation 3 L Unsat Iron Binding 319 Total Bilirubin AST ALT Alkaline Phosphatase B-Natriuretic Peptide Total Protein Albumin Ethyl Alcohol COVID-19 (SIMOEN) COVID-19 Clin Com Influenza Type A (CATE) Influenza Type B (CATE) Influenza A & B Note 11/06/22 11/07/22 11/07/22 23:23 05:04 05:04 MCV 75.3 L MCH 22.0 L MCHC 29.2 L RDW 20.8 H Plt Count 93 L D MPV TNP Immature Gran % (Auto) 0.5 H Neut % (Auto) 77.8 H Lymph % (Auto) 9.7 L [place] % (Auto) 11.7 H Eos % (Auto) 0.0 Baso % (Auto) 0.3 Lymph # (Auto) 0.4 L [place] # (Auto) 0.5 Eos # (Auto) 0.0 Baso # (Auto) 0.0 Abs Immat Gran (auto) 0.02 Absolute Neuts (auto) 3.1 Absolute Nucleated RBC 0.020 H Nucleated RBC % (auto) 0.5 H PT INR APTT Anion Gap 17 Estim Creat Clear Calc 106.9 Estimated GFR > 60 Random Glucose 150 H Lactic Acid Lactic Acid F/U @ 2Hr Lactic Acid F/U @ 4Hr 2.5 H* Calcium 8.3 L Magnesium 1.2 L* Iron TIBC % Saturation Unsat Iron Binding Total Bilirubin AST ALT Alkaline Phosphatase B-Natriuretic Peptide Total Protein Albumin Ethyl Alcohol COVID-19 (SIMONE) COVID-19 Clin Com Influenza Type A (CATE) Influenza Type B (CATE) Influenza A & B Note Assessment and Plan (1) Acute exacerbation of chronic obstructive airways disease: Status: Acute (2) Acute respiratory failure with hypoxia: Status: Acute (3) Alcohol withdrawal: Status: Resolved Plan This is a 57-year-old female with pertinent history of COPD not on home oxygen, mood disorder, alcohol use disorder homeless who presents to the emergency department for evaluation of dyspnea. Acute hypoxemic respiratory failure due to acute exacerbation of COPD continue IV solu-medrol, scheduled and p.r.calvin Ye wean supplemental oxygen as required Alcohol use disorder with alcohol withdrawal continue phenobarbatol CIWA trending up - will give additional dose of IM phenobarbitol addiction medicine team consulted continue thiamine, folic acid supplementation hypomagnesemia mag 1.2 will replace with IV mag continue po replacement follow levels Mood disorder psych consult to assess for med adjustment liver cirrhosis with esophageal varices with chronic pancytopenia no abdominal ascites Chronic Microcytic anemia H/H stable no evidence of acute blood loss above transfusion threshold Hypokalemia improved with replacement morbid obesity bmi 42.1 weight loss encouraged DVT prophylaxis: Lovenox attending - dr. Vazquez Full code Requires ongoing stay for supplemental oxygen, management of alcohol withdrawal Time Spent With Patient Time: Total time managing care of this patient today ____ minutes. Quality Stroke Does the patient have a stroke diagnosis?: No VTE Prior VTE?: No VTE Risk Level:: Medical - moderate - high VTE Device Contraindication: Treatment Not Indicated VTE Drug Contraindication: N/A - Med Ordered
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
[2022-11-07] MEDS: hydrOXYzine HCL 25 MG TABLET PO (14:37)
[2022-11-07] MEDS: Gabapentin 100 MG CAPSULE 200 MG PO ×2 (15:13→20:08)
[2022-11-07 15:23] VITALS: BP 129/60; PULSE 90; RESP 18; TEMP 37; O2SAT 97
[2022-11-07 15:29] VITALS: PULSE 92; RESP 18; O2SAT 98
--- NOTE | 2022-11-07 15:55 | MHC.RECOVRN ---
This commercial real estate underwriter met with patient after receiving addiction consult. Pt admitted for COPD exasperation, hypoxia. Pt was being seen by PA. This commercial real estate underwriter dropped off recovery resource folder at bedside, to be reviewed by Addiction/Recovery team tomorrow.
--- NOTE | 2022-11-07 16:28 | MHC.CM.PN ---
IMM 11/07/22 Female 56 DX COPD EXACERBATION She is homeless. 413 cares resources provided. A TASK has been sent to [facility]. Spoke with Ilene, care transitions from [facility]. They are willing to cover STR or Longterm care. The manager home healthcare is trying to work with the patient on these social issues. They have not been able to connect. Ilene stated that the patient has been admitted several times to area hospitals in the last 3 weeks. DP SNF vs detention
[2022-11-07 19:28] VITALS: BP 147/64; PULSE 77; RESP 18; TEMP 36.6; O2SAT 95
[2022-11-07] MEDS: Enoxaparin Sodium 40 MG/0.4 ML SYRINGE SUBCUT (20:10)
[2022-11-07] MEDS: Nystatin Powder 15 GM BOTTLE 1 APPL TOPICAL (21:43)
[2022-11-08] VITALS (9 sets, daily range): BP systolic 128–140; BP diastolic 57–64; PULSE 61–85; RESP 16–20; TEMP 36.1–36.5; O2SAT 94–98
[2022-11-08] MEDS: Omeprazole 20 MG CAPSULE.DR PO ×2 (04:52→16:05)
[2022-11-08] MEDS: methylPREDNISolone Sod Succ 40 MG/ML VIAL IVPUSH ×2 (04:52→16:06)
[2022-11-08 06:32] LABS: Hematocrit 28.9 % (37.0-47.0); Hemoglobin 8.6 g/dl (12.0-16.0); Mean Corpuscular HGB Conc 29.8 g/dl (31.0-35.0); Mean Corpuscular Hemoglobin 22.2 pg (27.0-33.0); Mean Corpuscular Volume 74.5 fL (80.0-98.0); Red Blood Count 3.88 X10*6/uL (4.20-5.50); White Blood Count 5.3 X10*3/uL (4.8-10.8)
[2022-11-08 06:33] LABS: Platelet Count 86 X10*3/uL (160-400)
[2022-11-08 06:49] LABS: Anion Gap 13 (12-20); Blood Urea Nitrogen 7 mg/dL (9-16); Calcium 8.3 mg/dL (8.4-10.2); Carbon Dioxide 28 mmol/L (22-29); Chloride 104 mmol/L (96-108); Creatinine Clr Calc Pharmacy 95.2; Estimated Glomerular Filt Rate > 60; Glucose Random 113 mg/dL (60-115); Magnesium 1.7 mg/dL (1.6-2.6); Potassium 3.8 mmol/L (3.3-5.1); Sodium 141 mmol/L (135-145)
[2022-11-08] MEDS: Albuterol/Iprat 2.5/0.5MG 3 ML AMPUL.NEB INHALE ×4 (07:49→19:52)
--- NOTE | 2022-11-08 08:32 | HO.PM.IMPN ---
Subjective Subjective Date of Service: 11/08/22 Interval History: seen and examined this morning follow up for alcohol withdrawal, copd exacerbation feels anxious no significant sob, dry cough Review of Systems Review of Systems: Yes all other systems are reviewed and are negative Constitutional Constitutional: Denies chills and Denies fever(s) Cardiovascular Cardiovascular: Denies chest pain, Denies palpitations and Reports dyspnea Respiratory Respiratory: Reports cough and Reports dyspnea Gastrointestinal Gastrointestinal: Denies abdominal pain Endocrine Endocrine: Denies palpitations Physical Exam Vital Signs: Vital Signs: Last Vital Signs Temp 97.2 F 11/08/22 08:00 Pulse 76 11/08/22 08:00 Resp 16 11/08/22 08:00 BP 140/60 H 11/08/22 08:00 Pulse Ox 94 11/08/22 08:00 O2 Del Method Nasal Cannula 11/08/22 08:00 O2 Flow Rate 2 11/08/22 08:00 BMI result Body Mass Index 42.1 Appearing in no acute distress lung sounds are clear to auscultation heart regular rate rhythm, clear S1, S2 positive bowel sounds, abdomen is soft, nontender neuro patient is alert x3, no focal deficits Objective Data Active Medications Acetaminophen (Acetaminophen 325 Mg Tablet) 650 mg PO Q6H PRN PRN Reason: Pain, Mild (Pain Scale 1-3) Last Admin: 11/07/22 08:38 Dose: 650 mg Documented By: COTEMA Albuterol/Ipratropium (Albuterol/Iprat 2.5/0.5mg 3 Ml Ampul.Neb) 3 ml INHALE RQ4H WHILE AWAKE [facility] Last Admin: 11/08/22 07:49 Dose: 3 ml Documented By: BLAJOSEFINA Albuterol/Ipratropium (Albuterol/Iprat 2.5/0.5mg 3 Ml Ampul.Neb) 3 ml INHALE Q4H PRN PRN Reason: Wheezing Calcium Carbonate (Calcium Carbonate 750 Mg Tab.Chew) 750 mg PO DAILY PRN PRN Reason: Heartburn Last Admin: 11/07/22 08:38 Dose: 750 mg Documented By: JEANIE Enoxaparin Sodium (Enoxaparin Sodium 40 Mg/0.4 Ml Syringe) 40 mg SUBCUT Q24H [facility] Last Admin: 11/07/22 20:10 Dose: 40 mg Documented By: CA Ferrous Sulfate (Ferrous Sulfate 324 Mg Tablet.) 324 mg PO DAILY [facility] Last Admin: 11/07/22 08:38 Dose: 324 mg Documented By: JEANIE Gabapentin (Gabapentin 100 Mg Capsule) 200 mg PO BID [facility] Last Admin: 11/07/22 20:08 Dose: 200 mg Documented By: CA Guaifenesin (Guaifenesin 100 Mg/5 Ml Liquid) 5 ml PO Q6H PRN PRN Reason: Cough Last Admin: 11/07/22 09:52 Dose: 5 ml Documented By: JEANIE Hydroxyzine HCl (Hydroxyzine Hcl 50 Mg Tablet) 50 mg PO BID PRN PRN Reason: Anxiety Magnesium Oxide (Magnesium Oxide 400 Mg Tablet) 400 mg PO DAILY [facility] Last Admin: 11/07/22 08:39 Dose: 400 mg Documented By: JEANIE Melatonin (Melatonin 3 Mg Tablet) 6 mg PO BEDTIME PRN PRN Reason: Insomnia Methylprednisolone Sodium Succinate (Methylprednisolone Sod Succ 40 Mg/Ml Vial) 40 mg IVPUSH Q12H [facility] Last Admin: 11/08/22 04:52 Dose: 40 mg Documented By: CA Multivitamins/Vitamin C (Multivitamin Tablet) 1 tab PO DAILY [facility] Last Admin: 11/07/22 08:38 Dose: 1 tab Documented By: JEANIE Nystatin (Nystatin Powder 15 Gm Bottle) 1 appl TOPICAL BID [facility]; Protocol Last Admin: 11/07/22 21:43 Dose: 1 appl Documented By: CA Omeprazole (Omeprazole 20 Mg Capsule.) 20 mg PO BID@0630,1630 [facility] Last Admin: 11/08/22 04:52 Dose: 20 mg Documented By: CA Ondansetron HCl (Ondansetron Hcl 4 Mg/2 Ml Vial) 4 mg IVPUSH Q8H PRN PRN Reason: Nausea and Vomiting Last Admin: 11/07/22 08:38 Dose: 4 mg Documented By: JEANIE Pharmacy Consult (Consult Rx Etoh Phenob Im/Po) 1 each MISCELLANE ONCE PRN; Protocol PRN Reason: Consult order Phenobarbital (Phenobarbital 30 Mg Tablet) 30 mg PO BID [facility]; Protocol Stop: 11/08/22 21:01 Last Admin: 11/07/22 20:08 Dose: 30 mg Documented By: CA Phenobarbital (Phenobarbital 15 Mg Tablet) 15 mg PO BID [facility] Stop: 11/10/22 21:01 Phenobarbital (Phenobarbital 15 Mg Tablet) 15 mg PO DAILY [facility]; Protocol Stop: 11/12/22 09:01 Pyridoxine HCl (Pyridoxine Hcl (Vitamin B6) 50 Mg Tablet) 50 mg PO DAILY [facility] Last Admin: 11/07/22 08:39 Dose: 50 mg Documented By: COTEMA Sodium Chloride (0.9 % Sodium Chloride Flush 3 Ml Syringe) 3 ml IVFLUSH QSHIFT [facility] Last Admin: 11/07/22 20:08 Dose: 3 ml Documented By: CROP Labs 11/08/22 05:39 11/08/22 05:38 Labs: Laboratory Results - last 24 hr 11/08/22 11/08/22 05:38 05:39 MCV 74.5 L MCH 22.2 L MCHC 29.8 L RDW 21.0 H Plt Count 86 L MPV Not Reportable Absolute Nucleated RBC 0.000 Nucleated RBC % (auto) 0.0 Anion Gap 13 Estim Creat Clear Calc 95.2 Estimated GFR > 60 Random Glucose 113 Calcium 8.3 L Magnesium 1.7 Microbiology Microbiology Results: Microbiology 11/06/22 18:12 Blood Culture - Preliminary Blood - Venous No growth after 24 hours. 11/06/22 18:10 Blood Culture - Preliminary Blood - Venous No growth after 24 hours. Assessment and Plan (1) Acute exacerbation of chronic obstructive airways disease: Status: Acute (2) Acute respiratory failure with hypoxia: Status: Acute (3) Alcohol withdrawal: Status: Resolved Plan 57-year-old female with pertinent history of COPD not on home oxygen, mood disorder, alcohol use disorder homeless who presents to the emergency department for evaluation of dyspnea. Acute hypoxemic respiratory failure due to acute exacerbation of COPD continue IV solu-medrol, scheduled and p.r.n. [place] wean supplemental oxygen as required Alcohol use disorder with alcohol withdrawal continue phenobarbatol CIWA trending up - will give additional dose of IM phenobarbitol addiction medicine team consulted continue thiamine, folic acid supplementation hypomagnesemia. Resolved continue po replacement follow levels Mood disorder psych consult to assess for med adjustment liver cirrhosis with esophageal varices with chronic pancytopenia no abdominal ascites Chronic Microcytic anemia H/H stable no evidence of acute blood loss above transfusion threshold Hypokalemia improved with replacement morbid obesity bmi 42.1 weight loss encouraged DVT prophylaxis: Lovenox attending - Dr. Radford Full code Requires ongoing stay for supplemental oxygen, management of alcohol withdrawal Time Spent With Patient Time: Total time managing care of this patient today ____ minutes. Quality Stroke Does the patient have a stroke diagnosis?: No VTE Prior VTE?: No VTE Risk Level:: Medical - moderate - high VTE Device Contraindication: Treatment Not Indicated VTE Drug Contraindication: N/A - Med Ordered
[2022-11-08] MEDS: PHENobarbitaL 30 MG TABLET PO ×2 (09:30→20:12)
[2022-11-08] MEDS: 0.9 % Sodium Chloride Flush 3 ML SYRINGE IVFLUSH ×3 (09:30→20:13)
[2022-11-08] MEDS: Pyridoxine HCl (Vitamin B6) 50 MG TABLET PO (09:30)
[2022-11-08] MEDS: Multivitamin TABLET 1 TAB PO (09:30)
[2022-11-08] MEDS: Gabapentin 100 MG CAPSULE 200 MG PO ×2 (09:30→20:12)
[2022-11-08] MEDS: Ferrous Sulfate 324 MG TABLET.DR PO (09:30)
[2022-11-08] MEDS: Magnesium Oxide 400 MG TABLET PO (09:30)
[2022-11-08] MEDS: Nystatin Powder 15 GM BOTTLE 1 APPL TOPICAL ×2 (09:31→20:15)
--- NOTE | 2022-11-08 13:08 | MHC.RECOVRN ---
T/w checked in with pt today to see if she had gotten a chance to read the recovery materials that she received. Pt reports that she hadn't. Pt states that she is interested in [facility], but has significant transportation barriers and is unstably housed. Pt reporting her primary concern at this time is to find housing before she can focus on her addiction. Pt tearful at times, sad affect. No s/sx of ETOH withdrawal at this time.
[2022-11-08] MEDS: Acetaminophen 325 MG TABLET 650 MG PO (16:05)
--- NOTE | 2022-11-08 19:24 | PC.NURSE ---
1900 pt had 12 BVT notified.pt asymptomatic sitting up in recliner.
[2022-11-08] MEDS: Enoxaparin Sodium 40 MG/0.4 ML SYRINGE SUBCUT (20:13)
[2022-11-09] VITALS (8 sets, daily range): BP systolic 101–136; BP diastolic 48–80; PULSE 66–92; RESP 16–20; TEMP 36.2–36.6; O2SAT 90–96
[2022-11-09] MEDS: Melatonin 3 MG TABLET 6 MG PO (01:57)
[2022-11-09] MEDS: Omeprazole 20 MG CAPSULE.DR PO ×2 (05:02→16:23)
[2022-11-09] MEDS: methylPREDNISolone Sod Succ 40 MG/ML VIAL IVPUSH (05:02)
[2022-11-09] MEDS: Albuterol/Iprat 2.5/0.5MG 3 ML AMPUL.NEB INHALE ×3 (07:43→19:45)
--- NOTE | 2022-11-09 08:27 | HO.PM.IMPN ---
Subjective Subjective Date of Service: 11/09/22 Interval History: seen and examined this morning follow up for alcohol withdrawal, copd exacerbation no significant sob, dry cough Review of Systems Review of Systems: Yes all other systems are reviewed and are negative Constitutional Constitutional: Denies chills and Denies fever(s) Cardiovascular Cardiovascular: Denies chest pain, Denies palpitations and Reports dyspnea Respiratory Respiratory: Reports cough and Reports dyspnea Gastrointestinal Gastrointestinal: Denies abdominal pain Endocrine Endocrine: Denies palpitations Physical Exam Vital Signs: Vital Signs: Last Vital Signs Temp 97.1 F 11/09/22 07:29 Pulse 84 11/09/22 07:43 Resp 18 11/09/22 07:43 BP 136/63 11/09/22 07:29 Pulse Ox 96 11/09/22 07:29 O2 Del Method Nasal Cannula 11/09/22 07:29 O2 Flow Rate 2 11/09/22 07:29 BMI result Body Mass Index 42.1 Appearing in no acute distress lung sounds are clear to auscultation heart regular rate rhythm, clear S1, S2 positive bowel sounds, abdomen is soft, nontender neuro patient is alert x3, no focal deficits Objective Data Active Medications Acetaminophen (Acetaminophen 325 Mg Tablet) 650 mg PO Q6H PRN PRN Reason: Pain, Mild (Pain Scale 1-3) Last Admin: 11/08/22 16:05 Dose: 650 mg Documented By: JANIS Albuterol/Ipratropium (Albuterol/Iprat 2.5/0.5mg 3 Ml Ampul.Neb) 3 ml INHALE RQ4H WHILE AWAKE [facility] Last Admin: 11/09/22 07:43 Dose: 3 ml Documented By: CARL Albuterol/Ipratropium (Albuterol/Iprat 2.5/0.5mg 3 Ml Ampul.Neb) 3 ml INHALE Q4H PRN PRN Reason: Wheezing Calcium Carbonate (Calcium Carbonate 750 Mg Tab.Chew) 750 mg PO DAILY PRN PRN Reason: Heartburn Last Admin: 11/07/22 08:38 Dose: 750 mg Documented By: COTEMA Enoxaparin Sodium (Enoxaparin Sodium 40 Mg/0.4 Ml Syringe) 40 mg SUBCUT Q24H [facility] Last Admin: 11/08/22 20:13 Dose: 40 mg Documented By: CA Ferrous Sulfate (Ferrous Sulfate 324 Mg Tablet.) 324 mg PO DAILY [facility] Last Admin: 11/08/22 09:30 Dose: 324 mg Documented By: JANIS Gabapentin (Gabapentin 100 Mg Capsule) 200 mg PO BID [facility] Last Admin: 11/08/22 20:12 Dose: 200 mg Documented By: CA Guaifenesin (Guaifenesin 100 Mg/5 Ml Liquid) 5 ml PO Q6H PRN PRN Reason: Cough Last Admin: 11/07/22 09:52 Dose: 5 ml Documented By: JEANIE Hydroxyzine HCl (Hydroxyzine Hcl 50 Mg Tablet) 50 mg PO BID PRN PRN Reason: Anxiety Magnesium Oxide (Magnesium Oxide 400 Mg Tablet) 400 mg PO DAILY [facility] Last Admin: 11/08/22 09:30 Dose: 400 mg Documented By: JANIS Melatonin (Melatonin 3 Mg Tablet) 6 mg PO BEDTIME PRN PRN Reason: Insomnia Last Admin: 11/09/22 01:57 Dose: 6 mg Documented By: CA Methylprednisolone Sodium Succinate (Methylprednisolone Sod Succ 40 Mg/Ml Vial) 40 mg IVPUSH Q12H [facility] Last Admin: 11/09/22 05:02 Dose: 40 mg Documented By: CA Multivitamins/Vitamin C (Multivitamin Tablet) 1 tab PO DAILY [facility] Last Admin: 11/08/22 09:30 Dose: 1 tab Documented By: JANIS Nystatin (Nystatin Powder 15 Gm Bottle) 1 appl TOPICAL BID [facility]; Protocol Last Admin: 11/08/22 20:15 Dose: 1 appl Documented By: CA Omeprazole (Omeprazole 20 Mg Capsule.) 20 mg PO BID@0630,1630 [facility] Last Admin: 11/09/22 05:02 Dose: 20 mg Documented By: CA Ondansetron HCl (Ondansetron Hcl 4 Mg/2 Ml Vial) 4 mg IVPUSH Q8H PRN PRN Reason: Nausea and Vomiting Last Admin: 11/07/22 08:38 Dose: 4 mg Documented By: JEANIE Pharmacy Consult (Consult Rx Etoh Phenob Im/Po) 1 each MISCELLANE ONCE PRN; Protocol PRN Reason: Consult order Phenobarbital (Phenobarbital 15 Mg Tablet) 15 mg PO BID [facility] Stop: 11/10/22 21:01 Phenobarbital (Phenobarbital 15 Mg Tablet) 15 mg PO DAILY [facility]; Protocol Stop: 11/12/22 09:01 Pyridoxine HCl (Pyridoxine Hcl (Vitamin B6) 50 Mg Tablet) 50 mg PO DAILY [facility] Last Admin: 11/08/22 09:30 Dose: 50 mg Documented By: JANIS Sodium Chloride (0.9 % Sodium Chloride Flush 3 Ml Syringe) 3 ml IVFLUSH QSHIFT [facility] Last Admin: 11/08/22 20:13 Dose: 3 ml Documented By: CA Labs 11/08/22 05:39 11/08/22 05:38 Microbiology Microbiology Results: Microbiology 11/06/22 18:12 Blood Culture - Preliminary Blood - Venous No growth after 48 hours. 11/06/22 18:10 Blood Culture - Preliminary Blood - Venous No growth after 48 hours. Assessment and Plan (1) Acute exacerbation of chronic obstructive airways disease: Status: Acute (2) Acute respiratory failure with hypoxia: Status: Acute (3) Alcohol withdrawal: Status: Resolved Plan 57-year-old female with pertinent history of COPD not on home oxygen, mood disorder, alcohol use disorder homeless who presents to the emergency department for evaluation of dyspnea. Acute hypoxemic respiratory failure due to acute exacerbation of COPD switch to oral prednisone, scheduled and p.r.nAntonio Ye wean supplemental oxygen as required ambulatory oxygen sat Alcohol use disorder with alcohol withdrawal continue phenobarbatol addiction medicine team consulted continue thiamine, folic acid supplementation hypomagnesemia. Resolved continue po replacement follow levels Mood disorder psych consult to assess for med adjustment liver cirrhosis with esophageal varices with chronic pancytopenia no abdominal ascites Chronic Microcytic anemia H/H stable no evidence of acute blood loss above transfusion threshold Hypokalemia improved with replacement morbid obesity bmi 42.1 weight loss encouraged DVT prophylaxis: Lovenox attending - Dr. Radford Full code Requires ongoing stay for supplemental oxygen, management of alcohol withdrawal Time Spent With Patient Time: Total time managing care of this patient today ____ minutes. Quality Stroke Does the patient have a stroke diagnosis?: No VTE Prior VTE?: No VTE Risk Level:: Medical - moderate - high VTE Device Contraindication: Treatment Not Indicated VTE Drug Contraindication: N/A - Med Ordered
[2022-11-09] MEDS: 0.9 % Sodium Chloride Flush 3 ML SYRINGE IVFLUSH ×3 (09:09→23:38)
[2022-11-09] MEDS: PHENobarbitaL 15 MG TABLET PO ×2 (09:09→21:00)
[2022-11-09] MEDS: Magnesium Oxide 400 MG TABLET PO (09:09)
[2022-11-09] MEDS: Multivitamin TABLET 1 TAB PO (09:09)
[2022-11-09] MEDS: Pyridoxine HCl (Vitamin B6) 50 MG TABLET PO (09:09)
[2022-11-09] MEDS: Ferrous Sulfate 324 MG TABLET.DR PO (09:09)
[2022-11-09] MEDS: Gabapentin 100 MG CAPSULE 200 MG PO ×2 (09:09→21:00)
[2022-11-09] MEDS: Nystatin Powder 15 GM BOTTLE 1 APPL TOPICAL ×2 (09:13→21:01)
[2022-11-09] MEDS: Acetaminophen 325 MG TABLET 650 MG PO (13:24)
[2022-11-09] MEDS: Enoxaparin Sodium 40 MG/0.4 ML SYRINGE SUBCUT (20:59)
[2022-11-10] VITALS (7 sets, daily range): BP systolic 130–136; BP diastolic 56–67; PULSE 77–100; RESP 16–20; TEMP 36.2–36.6; O2SAT 93–96
[2022-11-10] MEDS: Melatonin 3 MG TABLET 6 MG PO ×2 (02:01→20:20)
[2022-11-10] MEDS: hydrOXYzine HCL 50 MG TABLET PO ×2 (02:43→20:27)
[2022-11-10] MEDS: Omeprazole 20 MG CAPSULE.DR PO ×2 (06:07→17:26)
[2022-11-10] MEDS: Nystatin Powder 15 GM BOTTLE 1 APPL TOPICAL ×2 (08:58→20:23)
[2022-11-10] MEDS: Magnesium Oxide 400 MG TABLET PO (08:59)
[2022-11-10] MEDS: 0.9 % Sodium Chloride Flush 3 ML SYRINGE IVFLUSH ×2 (08:59→17:27)
[2022-11-10] MEDS: Multivitamin TABLET 1 TAB PO (08:59)
[2022-11-10] MEDS: Pyridoxine HCl (Vitamin B6) 50 MG TABLET PO (08:59)
[2022-11-10] MEDS: Ferrous Sulfate 324 MG TABLET.DR PO (08:59)
[2022-11-10] MEDS: PHENobarbitaL 15 MG TABLET PO ×2 (08:59→20:20)
[2022-11-10] MEDS: Gabapentin 100 MG CAPSULE 200 MG PO ×2 (08:59→20:19)
[2022-11-10] MEDS: predniSONE 20 MG TABLET 40 MG PO (08:59)
[2022-11-10] MEDS: Acetaminophen 325 MG TABLET 650 MG PO ×2 (10:15→20:17)
--- NOTE | 2022-11-10 11:12 | HO.PM.IMPN ---
Subjective Subjective Date of Service: 11/10/22 Interval History: seen and examined this morning follow up for alcohol withdrawal, copd exacerbation no significant sob, dry cough Review of Systems Review of Systems: Yes all other systems are reviewed and are negative Constitutional Constitutional: Denies chills and Denies fever(s) Cardiovascular Cardiovascular: Denies chest pain, Denies palpitations and Reports dyspnea Respiratory Respiratory: Reports cough and Reports dyspnea Gastrointestinal Gastrointestinal: Denies abdominal pain Endocrine Endocrine: Denies palpitations Physical Exam Vital Signs: Vital Signs: Last Vital Signs Temp 97.7 F 11/10/22 08:00 Pulse 77 11/10/22 08:00 Resp 16 11/10/22 08:00 BP 130/66 11/10/22 08:00 Pulse Ox 93 11/10/22 08:00 O2 Del Method Room Air 11/10/22 08:00 O2 Flow Rate 5 11/09/22 19:47 BMI result Body Mass Index 42.1 Appearing in no acute distress lung sounds are clear to auscultation heart regular rate rhythm, clear S1, S2 positive bowel sounds, abdomen is soft, nontender neuro patient is alert x3, no focal deficits Objective Data Active Medications Acetaminophen (Acetaminophen 325 Mg Tablet) 650 mg PO Q6H PRN PRN Reason: Pain, Mild (Pain Scale 1-3) Last Admin: 11/10/22 10:15 Dose: 650 mg Documented By: RUPERT Albuterol/Ipratropium (Albuterol/Iprat 2.5/0.5mg 3 Ml Ampul.Neb) 3 ml INHALE RQ4H WHILE AWAKE [facility] Last Admin: 11/10/22 07:47 Dose: Not Given Documented By: CARL Non-Admin Reason: Patient Asleep Albuterol/Ipratropium (Albuterol/Iprat 2.5/0.5mg 3 Ml Ampul.Neb) 3 ml INHALE Q4H PRN PRN Reason: Wheezing Calcium Carbonate (Calcium Carbonate 750 Mg Tab.Chew) 750 mg PO DAILY PRN PRN Reason: Heartburn Last Admin: 11/07/22 08:38 Dose: 750 mg Documented By: COTEMA Enoxaparin Sodium (Enoxaparin Sodium 40 Mg/0.4 Ml Syringe) 40 mg SUBCUT Q24H [facility] Last Admin: 11/09/22 20:59 Dose: 40 mg Documented By: KURT Ferrous Sulfate (Ferrous Sulfate 324 Mg Tablet.) 324 mg PO DAILY [facility] Last Admin: 11/10/22 08:59 Dose: 324 mg Documented By: RUPERT Gabapentin (Gabapentin 100 Mg Capsule) 200 mg PO BID [facility] Last Admin: 11/10/22 08:59 Dose: 200 mg Documented By: RUPERT Guaifenesin (Guaifenesin 100 Mg/5 Ml Liquid) 5 ml PO Q6H PRN PRN Reason: Cough Last Admin: 11/07/22 09:52 Dose: 5 ml Documented By: COTKRISTY Hydroxyzine HCl (Hydroxyzine Hcl 50 Mg Tablet) 50 mg PO BID PRN PRN Reason: Anxiety Last Admin: 11/10/22 02:43 Dose: 50 mg Documented By: KURT Magnesium Oxide (Magnesium Oxide 400 Mg Tablet) 400 mg PO DAILY [facility] Last Admin: 11/10/22 08:59 Dose: 400 mg Documented By: RUPERT Melatonin (Melatonin 3 Mg Tablet) 6 mg PO BEDTIME PRN PRN Reason: Insomnia Last Admin: 11/10/22 02:01 Dose: 6 mg Documented By: KURT Multivitamins/Vitamin C (Multivitamin Tablet) 1 tab PO DAILY [facility] Last Admin: 11/10/22 08:59 Dose: 1 tab Documented By: RUPERT Nystatin (Nystatin Powder 15 Gm Bottle) 1 appl TOPICAL BID [facility]; Protocol Last Admin: 11/10/22 08:58 Dose: 1 appl Documented By: RUPERT Omeprazole (Omeprazole 20 Mg Capsule.) 20 mg PO BID@0630,1630 [facility] Last Admin: 11/10/22 06:07 Dose: 20 mg Documented By: KURT Ondansetron HCl (Ondansetron Hcl 4 Mg/2 Ml Vial) 4 mg IVPUSH Q8H PRN PRN Reason: Nausea and Vomiting Last Admin: 11/07/22 08:38 Dose: 4 mg Documented By: COTKRISTY Pharmacy Consult (Consult Rx Etoh Phenob Im/Po) 1 each MISCELLANE ONCE PRN; Protocol PRN Reason: Consult order Phenobarbital (Phenobarbital 15 Mg Tablet) 15 mg PO BID [facility] Stop: 11/10/22 21:01 Last Admin: 11/10/22 08:59 Dose: 15 mg Documented By: RUPERT Phenobarbital (Phenobarbital 15 Mg Tablet) 15 mg PO DAILY [facility]; Protocol Stop: 11/12/22 09:01 Prednisone (Prednisone 20 Mg Tablet) 40 mg PO DAILY [facility] Last Admin: 11/10/22 08:59 Dose: 40 mg Documented By: RUPERT Pyridoxine HCl (Pyridoxine Hcl (Vitamin B6) 50 Mg Tablet) 50 mg PO DAILY [facility] Last Admin: 11/10/22 08:59 Dose: 50 mg Documented By: RUPERT Sodium Chloride (0.9 % Sodium Chloride Flush 3 Ml Syringe) 3 ml IVFLUSH QSHIFT [facility] Last Admin: 11/10/22 08:59 Dose: 3 ml Documented By: RUPERT Labs 11/08/22 05:39 11/08/22 05:38 Assessment and Plan (1) Acute exacerbation of chronic obstructive airways disease: Status: Acute (2) Acute respiratory failure with hypoxia: Status: Acute (3) Alcohol withdrawal: Status: Resolved Plan 57-year-old female with pertinent history of COPD not on home oxygen, mood disorder, alcohol use disorder homeless who presents to the emergency department for evaluation of dyspnea. Acute hypoxemic respiratory failure due to acute exacerbation of COPD switch to oral prednisone, scheduled and p.r.n. DuoNebs off oxygen ambulatory oxygen sat normal Alcohol use disorder with alcohol withdrawal continue phenobarbatol addiction medicine team consulted continue thiamine, folic acid supplementation hypomagnesemia. Resolved continue po replacement follow levels Mood disorder psych consult to assess for med adjustment liver cirrhosis with esophageal varices with chronic pancytopenia no abdominal ascites Chronic Microcytic anemia H/H stable no evidence of acute blood loss above transfusion threshold Hypokalemia. Resolved improved with replacement morbid obesity bmi 42.1 weight loss encouraged DVT prophylaxis: Lovenox attending - Dr. Radford Full code Requires ongoing stay for supplemental oxygen, management of alcohol withdrawal Time Spent With Patient Time: Total time managing care of this patient today ____ minutes. Quality Stroke Does the patient have a stroke diagnosis?: No VTE Prior VTE?: No VTE Risk Level:: Medical - moderate - high VTE Device Contraindication: Treatment Not Indicated VTE Drug Contraindication: N/A - Med Ordered
[2022-11-10] MEDS: Albuterol/Iprat 2.5/0.5MG 3 ML AMPUL.NEB INHALE ×3 (11:18→20:26)
--- NOTE | 2022-11-10 13:26 | MHC.CM.PN ---
PT IS AGREEABLE TO GO TO STR [facility]. PT NOTE/HCP SENT VIA [employer]. REQUEST TO START [facility] SATURDAY 11/11 PENDING AVAILABILITY
[2022-11-10] MEDS: Enoxaparin Sodium 40 MG/0.4 ML SYRINGE SUBCUT (20:21)
[2022-11-11] MEDS: 0.9 % Sodium Chloride Flush 3 ML SYRINGE IVFLUSH (01:59)
[2022-11-11 03:36] VITALS: BP 132/62; PULSE 75; RESP 17; TEMP 36.2; O2SAT 95
[2022-11-11] MEDS: Omeprazole 20 MG CAPSULE.DR PO ×2 (06:09→15:27)
[2022-11-11 07:33] VITALS: BP 141/63; PULSE 82; RESP 18; TEMP 36.3; O2SAT 96
[2022-11-11] MEDS: Ferrous Sulfate 324 MG TABLET.DR PO (07:48)
[2022-11-11] MEDS: PHENobarbitaL 15 MG TABLET PO (07:48)
[2022-11-11] MEDS: Multivitamin TABLET 1 TAB PO (07:48)
[2022-11-11] MEDS: predniSONE 20 MG TABLET 40 MG PO (07:49)
[2022-11-11] MEDS: Nystatin Powder 15 GM BOTTLE 1 APPL TOPICAL ×2 (07:49→20:02)
[2022-11-11] MEDS: Pyridoxine HCl (Vitamin B6) 50 MG TABLET PO (07:49)
[2022-11-11] MEDS: Magnesium Oxide 400 MG TABLET PO (07:49)
[2022-11-11] MEDS: Gabapentin 100 MG CAPSULE 200 MG PO ×2 (07:49→20:00)
--- NOTE | 2022-11-11 09:35 | PM.DS ---
DS: Providers Provider Date of Service: 11/11/22 Date of admission: 11/06/22 19:15 Primary care physician: Unknown Physician Consults: 11/06/22 19:35 Addiction Medicine Routine Consulting Provider: Addiction Covering Reason for consultation: Alcohol use disorder 11/06/22 19:36 Consult to Psychiatry Routine Consulting Provider: Psych Covering Reason for consultation: Generalized anxiety disorder/major depression DS: Diagnosis Discharge Diagnosis (1) Acute exacerbation of chronic obstructive airways disease: Status: Acute (2) Acute respiratory failure with hypoxia: Status: Acute (3) Alcohol withdrawal: Status: Resolved DS: Summary Hospital Course Hospital Course: This is a 57-year-old female with pertinent history of COPD not on home oxygen, mood disorder, alcohol use disorder homeless who presents to the emergency department for evaluation of dyspnea.? Patient states she has been having shortness of breath, worse with exertion that has been ongoing for a while.? Patient states her medications including inhaler are in a storage place which she does not have access to.? Has not taking her inhaler in a while.? Also complains of wheezing and nonproductive cough.? No fever or chills.? No chest discomfort, palpitations, abdominal pain, changes in urinary or bowel habits.? Does endorse history of alcohol use disorder.? Also has a history of alcohol withdrawal seizures. In the emergency department, patient was found to be wheezing and hypoxemic.? Alcohol level found to be elevated. 57-year-old woman treated for acute hypoxemic respiratory failure secondary to COPD exacerbation. Treated with scheduled DuoNebs and IV steroids. Required supplemental oxygen but subsequently weaned off. She was also treated for alcohol use disorder with alcohol withdrawal. Withdrawal symptoms were very minimal, she was treated with phenobarbital protocol, thiamine and folic acid supplementation. Electrolyte abnormalities repleted and resolved. Plan is for short-term rehab. Long discussion regarding the importance of alcohol cessation, patient stated understanding. Mental health. Continue medications Liver cirrhosis with esophageal varices. Stable during admission Chronic microcytic anemia. No acute blood loss during admission Morbid obesity. BMI 42.1 Discussed importance of weight management as this may be contributing to worsening of other comorbidities Time Spent with Patient Time attestation: Total time managing care of this patient today ____ minutes. Physical Exam Vital Signs: Vital Signs: Last Vital Signs Temp 97.3 F 11/11/22 07:33 Pulse 82 11/11/22 07:33 Resp 18 11/11/22 07:33 BP 141/63 H 11/11/22 07:33 Pulse Ox 96 11/11/22 07:33 O2 Del Method Room Air 11/11/22 07:33 O2 Flow Rate 5 11/09/22 19:47 BMI result Body Mass Index 42.1 Appearing in no acute distress head is normocephalic atraumatic eyes pupils are PERRLA sclera is anicteric mouth throat mucous membranes are intact and moist neck is supple no lymphadenopathy, no JVD noted lung sounds are clear to auscultation heart regular rate rhythm, clear S1, S2 positive bowel sounds, abdomen is soft, nontender neuro patient is alert x3, no focal deficits DS: Data Data Completed and Pending Completed studies during hospitalization [Text1]: Procedures Detoxification Services for Substance Abuse Treatment (06/12/22) Inspection of Upper Intestinal Tract, Via Natural or Artificial Opening Endoscopic (04/13/22) Labs on day of discharge: Preliminary micro results at discharge 11/06/22 18:12 Blood Culture - Preliminary Blood - Venous No growth after 48 hours. 11/06/22 18:10 Blood Culture - Preliminary Blood - Venous No growth after 48 hours. Discharge Plan Discharge Anticipated Discharge Date/Time: 11/11/22 07:09 Patient Disposition: Xfer Inpatient Rehab Fac Discharge Diagnosis: Acute hypoxemic respiratory failure COPD exacerbation Alcohol use disorder with alcohol withdrawal Hypo magnesemia Discharge Medications: Continued thiamine HCl (vitamin B1) [Vitamin B-1] 100 mg Tablet 100 mg PO DAILY multivitamin with folic acid [Daily-Nguyen (with folic acid)] 400 mcg tablet 1 tab PO DAILY gabapentin 100 mg Capsule 200 mg PO BID acetaminophen 500 mg Tablet 1,000 mg PO Q6H PRN (Reason: Pain) calcium carbonate 500 mg calcium (1,250 mg) Tablet,Chewable 1,000 mg PO DAILY PRN (Reason: Heartburn) cetirizine 10 mg tablet 10 mg PO DAILY naltrexone 50 mg tablet 50 mg PO DAILY magnesium oxide 400 mg (241.3 mg magnesium) tablet 400 mg PO DAILY pantoprazole 40 mg tablet,delayed release (DR/EC) 40 mg PO BID folic acid 1 mg tablet 1 mg PO DAILY hydroxyzine HCl 25 mg tablet 25 - 50 mg PO BID PRN (Reason: Anxiety) pyridoxine (vitamin B6) 100 mg Tablet 50 mg PO DAILY ferrous gluconate 324 mg (38 mg iron) tablet 324 mg PO DAILY Diet: Advance to usual diet Activity on Discharge: As tolerated Stand Alone Forms: Patient Portal Discharge page Care Plan Goals: Complete resolution symptoms Health Concerns: Acute hypoxemic respiratory failure COPD exacerbation Alcohol use disorder with alcohol withdrawal Hypo magnesemia Plan of Treatment: Follow-up with primary care provider as needed Stop drinking alcohol Take all medications as prescribed Assessment: See discharge summary
[2022-11-11] MEDS: Albuterol/Iprat 2.5/0.5MG 3 ML AMPUL.NEB INHALE (11:29)
[2022-11-11 11:30] VITALS: PULSE 82; RESP 16; O2SAT 97
--- NOTE | 2022-11-11 13:27 | HO.PM.IMPN ---
Subjective Subjective Date of Service: 11/11/22 Interval History: seen and examined this morning follow up for alcohol withdrawal, copd exacerbation no significant sob, dry cough Review of Systems Review of Systems: Yes all other systems are reviewed and are negative Constitutional Constitutional: Denies chills and Denies fever(s) Cardiovascular Cardiovascular: Denies chest pain, Denies palpitations and Reports dyspnea Respiratory Respiratory: Reports cough and Reports dyspnea Gastrointestinal Gastrointestinal: Denies abdominal pain Endocrine Endocrine: Denies palpitations Physical Exam Vital Signs: Vital Signs: Last Vital Signs Temp 97.3 F 11/11/22 07:33 Pulse 82 11/11/22 11:30 Resp 16 11/11/22 11:30 BP 141/63 H 11/11/22 07:33 Pulse Ox 96 11/11/22 07:33 O2 Del Method Room Air 11/11/22 07:33 O2 Flow Rate 5 11/09/22 19:47 BMI result Body Mass Index 42.1 Appearing in no acute distress lung sounds are clear to auscultation heart regular rate rhythm, clear S1, S2 positive bowel sounds, abdomen is soft, nontender neuro patient is alert x3, no focal deficits Objective Data Active Medications Acetaminophen (Acetaminophen 325 Mg Tablet) 650 mg PO Q6H PRN PRN Reason: Pain, Mild (Pain Scale 1-3) Last Admin: 11/10/22 20:17 Dose: 650 mg Documented By: LYNNETTE Albuterol/Ipratropium (Albuterol/Iprat 2.5/0.5mg 3 Ml Ampul.Neb) 3 ml INHALE RQ4H WHILE AWAKE [facility] Last Admin: 11/11/22 11:29 Dose: 3 ml Documented By: BIPIN Albuterol/Ipratropium (Albuterol/Iprat 2.5/0.5mg 3 Ml Ampul.Neb) 3 ml INHALE Q4H PRN PRN Reason: Wheezing Calcium Carbonate (Calcium Carbonate 750 Mg Tab.Chew) 750 mg PO DAILY PRN PRN Reason: Heartburn Last Admin: 11/07/22 08:38 Dose: 750 mg Documented By: JEANIE Enoxaparin Sodium (Enoxaparin Sodium 40 Mg/0.4 Ml Syringe) 40 mg SUBCUT Q24H [facility] Last Admin: 11/10/22 20:21 Dose: 40 mg Documented By: LYNNETTE Ferrous Sulfate (Ferrous Sulfate 324 Mg Tablet.) 324 mg PO DAILY [facility] Last Admin: 11/11/22 07:48 Dose: 324 mg Documented By: RUPERT Gabapentin (Gabapentin 100 Mg Capsule) 200 mg PO BID [facility] Last Admin: 11/11/22 07:49 Dose: 200 mg Documented By: RUPERT Guaifenesin (Guaifenesin 100 Mg/5 Ml Liquid) 5 ml PO Q6H PRN PRN Reason: Cough Last Admin: 11/07/22 09:52 Dose: 5 ml Documented By: JEANIE Hydroxyzine HCl (Hydroxyzine Hcl 50 Mg Tablet) 50 mg PO BID PRN PRN Reason: Anxiety Last Admin: 11/10/22 20:27 Dose: 50 mg Documented By: LYNNETTE Magnesium Oxide (Magnesium Oxide 400 Mg Tablet) 400 mg PO DAILY [facility] Last Admin: 11/11/22 07:49 Dose: 400 mg Documented By: RUPERT Melatonin (Melatonin 3 Mg Tablet) 6 mg PO BEDTIME PRN PRN Reason: Insomnia Last Admin: 11/10/22 20:20 Dose: 6 mg Documented By: LYNNETTE Multivitamins/Vitamin C (Multivitamin Tablet) 1 tab PO DAILY [facility] Last Admin: 11/11/22 07:48 Dose: 1 tab Documented By: RUPERT Nystatin (Nystatin Powder 15 Gm Bottle) 1 appl TOPICAL BID [facility]; Protocol Last Admin: 11/11/22 07:49 Dose: 1 appl Documented By: RUPERT Omeprazole (Omeprazole 20 Mg Capsule.) 20 mg PO BID@0630,1630 [facility] Last Admin: 11/11/22 06:09 Dose: 20 mg Documented By: LUCAS Ondansetron HCl (Ondansetron Hcl 4 Mg/2 Ml Vial) 4 mg IVPUSH Q8H PRN PRN Reason: Nausea and Vomiting Last Admin: 11/07/22 08:38 Dose: 4 mg Documented By: JEANIE Pharmacy Consult (Consult Rx Etoh Phenob Im/Po) 1 each MISCELLANE ONCE PRN; Protocol PRN Reason: Consult order Phenobarbital (Phenobarbital 15 Mg Tablet) 15 mg PO DAILY [facility]; Protocol Stop: 11/12/22 09:01 Last Admin: 11/11/22 07:48 Dose: 15 mg Documented By: RUPERT Prednisone (Prednisone 20 Mg Tablet) 40 mg PO DAILY [facility] Last Admin: 11/11/22 07:49 Dose: 40 mg Documented By: RUPERT Pyridoxine HCl (Pyridoxine Hcl (Vitamin B6) 50 Mg Tablet) 50 mg PO DAILY [facility] Last Admin: 11/11/22 07:49 Dose: 50 mg Documented By: RUPERT Sodium Chloride (0.9 % Sodium Chloride Flush 3 Ml Syringe) 3 ml IVFLUSH QSHIFT [facility] Last Admin: 11/11/22 10:47 Dose: Not Given Documented By: RUPERT Non-Admin Reason: No Access Labs 11/08/22 05:39 11/08/22 05:38 Assessment and Plan (1) Acute exacerbation of chronic obstructive airways disease: Status: Acute (2) Acute respiratory failure with hypoxia: Status: Acute (3) Alcohol withdrawal: Status: Resolved Plan 57-year-old female with pertinent history of COPD not on home oxygen, mood disorder, alcohol use disorder homeless who presents to the emergency department for evaluation of dyspnea. Acute hypoxemic respiratory failure due to acute exacerbation of COPD oral prednisone, p.r.n. DuoNebs off oxygen ambulatory oxygen sat normal Alcohol use disorder with alcohol withdrawal continue phenobarbatol continue thiamine, folic acid supplementation hypomagnesemia. Resolved continue po replacement follow levels Mood disorder psych consult to assess for med adjustment liver cirrhosis with esophageal varices with chronic pancytopenia no abdominal ascites Chronic Microcytic anemia H/H stable no evidence of acute blood loss above transfusion threshold Hypokalemia. Resolved improved with replacement morbid obesity bmi 42.1 weight loss encouraged DVT prophylaxis: Corie attending - Dr. Vazquez Full code DISPO plan for STR when bed available Requires ongoing stay for supplemental oxygen, management of alcohol withdrawal Time Spent With Patient Time: Total time managing care of this patient today ____ minutes. Quality Stroke Does the patient have a stroke diagnosis?: No VTE Prior VTE?: No VTE Risk Level:: Medical - moderate - high VTE Device Contraindication: Treatment Not Indicated VTE Drug Contraindication: N/A - Med Ordered
[2022-11-11 15:10] VITALS: BP 141/62; PULSE 95; RESP 20; TEMP 36.9; O2SAT 95
--- NOTE | 2022-11-11 18:38 | MHC.RECOVRN ---
This teletypewriter operator checked in with patient earlier in the day, patient was sitting up in recliner. Pt reports hopes to go to SNF. Pt reports no questions/concerns related to Addiction/Recovery supports.
[2022-11-11 19:18] VITALS: BP 151/66; PULSE 83; RESP 20; TEMP 36.7; O2SAT 94
[2022-11-11] MEDS: Enoxaparin Sodium 40 MG/0.4 ML SYRINGE SUBCUT (20:00)
[2022-11-12 03:44] VITALS: BP 132/59; PULSE 71; RESP 18; TEMP 36.4; O2SAT 97
[2022-11-12] MEDS: Omeprazole 20 MG CAPSULE.DR PO ×2 (06:13→14:53)
[2022-11-12 07:54] VITALS: BP 136/63; PULSE 78; RESP 18; TEMP 37.2; O2SAT 96
[2022-11-12] MEDS: Magnesium Oxide 400 MG TABLET PO (09:01)
[2022-11-12] MEDS: Pyridoxine HCl (Vitamin B6) 50 MG TABLET PO (09:02)
[2022-11-12] MEDS: Ferrous Sulfate 324 MG TABLET.DR PO (09:02)
[2022-11-12] MEDS: PHENobarbitaL 15 MG TABLET PO (09:02)
[2022-11-12] MEDS: Gabapentin 100 MG CAPSULE 200 MG PO ×2 (09:02→20:07)
[2022-11-12] MEDS: predniSONE 20 MG TABLET 40 MG PO (09:02)
[2022-11-12] MEDS: Multivitamin TABLET 1 TAB PO (09:02)
[2022-11-12] MEDS: Nystatin Powder 15 GM BOTTLE 1 APPL TOPICAL ×2 (09:03→20:08)
--- NOTE | 2022-11-12 10:41 | HO.PM.IMPN ---
Subjective Subjective Date of Service: 11/12/22 Interval History: seen and examined this morning follow up for alcohol withdrawal, copd exacerbation no significant sob, dry cough Review of Systems Review of Systems: Yes all other systems are reviewed and are negative Constitutional Constitutional: Denies chills and Denies fever(s) Cardiovascular Cardiovascular: Denies chest pain, Denies palpitations and Reports dyspnea Respiratory Respiratory: Reports cough and Reports dyspnea Gastrointestinal Gastrointestinal: Denies abdominal pain Endocrine Endocrine: Denies palpitations Physical Exam Vital Signs: Vital Signs: Last Vital Signs Temp 99.0 F 11/12/22 07:54 Pulse 78 11/12/22 07:54 Resp 18 11/12/22 07:54 BP 136/63 11/12/22 07:54 Pulse Ox 96 11/12/22 07:54 O2 Del Method Room Air 11/12/22 07:54 O2 Flow Rate 5 11/09/22 19:47 BMI result Body Mass Index 42.1 Appearing in no acute distress lung sounds are clear to auscultation heart regular rate rhythm, clear S1, S2 positive bowel sounds, abdomen is soft, nontender neuro patient is alert x3, no focal deficits Objective Data Active Medications Acetaminophen (Acetaminophen 325 Mg Tablet) 650 mg PO Q6H PRN PRN Reason: Pain, Mild (Pain Scale 1-3) Last Admin: 11/10/22 20:17 Dose: 650 mg Documented By: LYNNETTE Albuterol/Ipratropium (Albuterol/Iprat 2.5/0.5mg 3 Ml Ampul.Neb) 3 ml INHALE Q4H PRN PRN Reason: Wheezing Calcium Carbonate (Calcium Carbonate 750 Mg Tab.Chew) 750 mg PO DAILY PRN PRN Reason: Heartburn Last Admin: 11/07/22 08:38 Dose: 750 mg Documented By: COTEMA Enoxaparin Sodium (Enoxaparin Sodium 40 Mg/0.4 Ml Syringe) 40 mg SUBCUT Q24H [facility] Last Admin: 11/11/22 20:00 Dose: 40 mg Documented By: LYNNETTE Ferrous Sulfate (Ferrous Sulfate 324 Mg Tablet.) 324 mg PO DAILY [facility] Last Admin: 11/12/22 09:02 Dose: 324 mg Documented By: RUPERT Gabapentin (Gabapentin 100 Mg Capsule) 200 mg PO BID [facility] Last Admin: 11/12/22 09:02 Dose: 200 mg Documented By: RUPERT Guaifenesin (Guaifenesin 100 Mg/5 Ml Liquid) 5 ml PO Q6H PRN PRN Reason: Cough Last Admin: 11/07/22 09:52 Dose: 5 ml Documented By: JEANIE Hydroxyzine HCl (Hydroxyzine Hcl 50 Mg Tablet) 50 mg PO BID PRN PRN Reason: Anxiety Last Admin: 11/10/22 20:27 Dose: 50 mg Documented By: LYNNETTE Magnesium Oxide (Magnesium Oxide 400 Mg Tablet) 400 mg PO DAILY [facility] Last Admin: 11/12/22 09:01 Dose: 400 mg Documented By: RUPERT Melatonin (Melatonin 3 Mg Tablet) 6 mg PO BEDTIME PRN PRN Reason: Insomnia Last Admin: 11/10/22 20:20 Dose: 6 mg Documented By: LYNNETTE Multivitamins/Vitamin C (Multivitamin Tablet) 1 tab PO DAILY [facility] Last Admin: 11/12/22 09:02 Dose: 1 tab Documented By: RUPERT Nystatin (Nystatin Powder 15 Gm Bottle) 1 appl TOPICAL BID [facility]; Protocol Last Admin: 11/12/22 09:03 Dose: 1 appl Documented By: RUPERT Omeprazole (Omeprazole 20 Mg Capsule.Dr) 20 mg PO BID@0630,1630 [facility] Last Admin: 11/12/22 06:13 Dose: 20 mg Documented By: AYALA Ondansetron HCl (Ondansetron Hcl 4 Mg/2 Ml Vial) 4 mg IVPUSH Q8H PRN PRN Reason: Nausea and Vomiting Last Admin: 11/07/22 08:38 Dose: 4 mg Documented By: JEANIE Pharmacy Consult (Consult Rx Etoh Phenob Im/Po) 1 each MISCELLANE ONCE PRN; Protocol PRN Reason: Consult order Prednisone (Prednisone 20 Mg Tablet) 40 mg PO DAILY [facility] Last Admin: 11/12/22 09:02 Dose: 40 mg Documented By: RUPERT Pyridoxine HCl (Pyridoxine Hcl (Vitamin B6) 50 Mg Tablet) 50 mg PO DAILY [facility] Last Admin: 11/12/22 09:02 Dose: 50 mg Documented By: RUPERT Sodium Chloride (0.9 % Sodium Chloride Flush 3 Ml Syringe) 3 ml IVFLUSH QSHIFT [facility] Last Admin: 11/12/22 09:00 Dose: Not Given Documented By: RUPERT Non-Admin Reason: No Access Labs 11/08/22 05:39 11/08/22 05:38 Microbiology Microbiology Results: Microbiology 11/06/22 18:12 Blood Culture - Final Blood - Venous No growth after 5 days. 11/06/22 18:10 Blood Culture - Final Blood - Venous No growth after 5 days. Assessment and Plan (1) Acute exacerbation of chronic obstructive airways disease: Status: Acute (2) Acute respiratory failure with hypoxia: Status: Acute (3) Alcohol withdrawal: Status: Resolved Plan 57-year-old female with pertinent history of COPD not on home oxygen, mood disorder, alcohol use disorder homeless who presents to the emergency department for evaluation of dyspnea. Acute hypoxemic respiratory failure due to acute exacerbation of COPD completed IV steroids, continue 4 days prednisone (stop 11/14/22 , p.r.n. DuoNebs off oxygen ambulatory oxygen sat normal Alcohol use disorder with alcohol withdrawal continue phenobarbatol continue thiamine, folic acid supplementation hypomagnesemia. Resolved continue po replacement follow levels Mood disorder psych consult to assess for med adjustment liver cirrhosis with esophageal varices with chronic pancytopenia no abdominal ascites Chronic Microcytic anemia H/H stable no evidence of acute blood loss above transfusion threshold Hypokalemia. Resolved improved with replacement morbid obesity bmi 42.1 weight loss encouraged DVT prophylaxis: [place] attending - Dr. Vazquez Full code DISPO plan for STR when bed available Requires ongoing stay for supplemental oxygen, management of alcohol withdrawal Time Spent With Patient Time: Total time managing care of this patient today ____ minutes. Quality Stroke Does the patient have a stroke diagnosis?: No VTE Prior VTE?: No VTE Risk Level:: Medical - moderate - high VTE Device Contraindication: Treatment Not Indicated VTE Drug Contraindication: N/A - Med Ordered
--- NOTE | 2022-11-12 11:01 | MHC.CM.PN ---
Per MD rounds patient ready for discharge. [facility] has been referred. A clinical update has been sent to the facility. PT continues to recommend STR. Per the Liason they anticipate making a bed offer Thursday. Patient will transport via BLS.
[2022-11-12 15:36] VITALS: BP 131/63; PULSE 94; RESP 18; TEMP 37.3; O2SAT 95
[2022-11-12 20:00] VITALS: BP 135/66; PULSE 90; RESP 18; TEMP 36.3; O2SAT 90
[2022-11-12] MEDS: Enoxaparin Sodium 40 MG/0.4 ML SYRINGE SUBCUT (20:06)
[2022-11-13 04:00] VITALS: BP 133/66; PULSE 76; RESP 20; TEMP 36.6; O2SAT 95
[2022-11-13] MEDS: Omeprazole 20 MG CAPSULE.DR PO ×2 (05:50→16:01)
[2022-11-13 07:35] VITALS: BP 145/69; PULSE 74; RESP 16; TEMP 36.1; O2SAT 97
[2022-11-13] MEDS: Magnesium Oxide 400 MG TABLET PO (10:20)
[2022-11-13] MEDS: Gabapentin 100 MG CAPSULE 200 MG PO ×2 (10:20→20:05)
[2022-11-13] MEDS: predniSONE 20 MG TABLET 40 MG PO (10:21)
[2022-11-13] MEDS: Pyridoxine HCl (Vitamin B6) 50 MG TABLET PO (10:21)
[2022-11-13] MEDS: Multivitamin TABLET 1 TAB PO (10:21)
[2022-11-13] MEDS: Ferrous Sulfate 324 MG TABLET.DR PO (10:21)
[2022-11-13] MEDS: Nystatin Powder 15 GM BOTTLE 1 APPL TOPICAL ×2 (10:21→20:07)
[2022-11-13 11:01] VITALS: PULSE 97; O2SAT 96
--- NOTE | 2022-11-13 13:11 | P.PNIM_ITS ---
Subjective Subjective Date of Service: 11/13/22 Interval History: seen and examined this morning follow up for COPD exacerbation, etoh withdrawal able to ambulate without sob no overnight events Review of Systems Review of Systems: Yes all other systems are reviewed and are negative Constitutional Constitutional: Denies chills and Denies fever(s) ENT Ears, Nose, Mouth, and Throat: Denies dizziness Cardiovascular Cardiovascular: Denies chest pain Respiratory Respiratory: Denies cough Gastrointestinal Gastrointestinal: Denies abdominal pain Neurologic Neurologic: Denies dizziness Physical Exam 2 Vital Signs: Vital Signs: Last Vital Signs Temp 97.0 F 11/13/22 07:35 Pulse 97 11/13/22 11:01 Resp 16 11/13/22 07:35 BP 145/69 H 11/13/22 07:35 Pulse Ox 96 11/13/22 11:01 O2 Del Method Room Air 11/13/22 07:35 O2 Flow Rate 5 11/09/22 19:47 BMI result Body Mass Index 42.1 Const: General: cooperative, comfortable, no acute distress, alert and awake Nutritional Appearance: overweight Orientation/consciousness: patient oriented x3 Resp: Effort & Inspection: normal respiratory effort, able to speak in complete sentences, no respiratory distress and no use of accessory muscles Cardio: Rate: regular rate GI: Inspection: No distended Palpation (GI): Soft to palpation and nontender Neuro: General: patient oriented x3 and moves all extremities Objective Data Active Medications Acetaminophen (Acetaminophen 325 Mg Tablet) 650 mg PO Q6H PRN PRN Reason: Pain, Mild (Pain Scale 1-3) Last Admin: 11/10/22 20:17 Dose: 650 mg Documented By: LYNNETTE Albuterol/Ipratropium (Albuterol/Iprat 2.5/0.5mg 3 Ml Ampul.Neb) 3 ml INHALE Q4H PRN PRN Reason: Wheezing Calcium Carbonate (Calcium Carbonate 750 Mg Tab.Chew) 750 mg PO DAILY PRN PRN Reason: Heartburn Last Admin: 11/07/22 08:38 Dose: 750 mg Documented By: COTEMA Enoxaparin Sodium (Enoxaparin Sodium 40 Mg/0.4 Ml Syringe) 40 mg SUBCUT Q24H [facility] Last Admin: 11/12/22 20:06 Dose: 40 mg Documented By: CROP Ferrous Sulfate (Ferrous Sulfate 324 Mg Tablet.) 324 mg PO DAILY [facility] Last Admin: 11/13/22 10:21 Dose: 324 mg Documented By: JANIS Gabapentin (Gabapentin 100 Mg Capsule) 200 mg PO BID [facility] Last Admin: 11/13/22 10:20 Dose: 200 mg Documented By: JANIS Guaifenesin (Guaifenesin 100 Mg/5 Ml Liquid) 5 ml PO Q6H PRN PRN Reason: Cough Last Admin: 11/07/22 09:52 Dose: 5 ml Documented By: JEANIE Hydroxyzine HCl (Hydroxyzine Hcl 50 Mg Tablet) 50 mg PO BID PRN PRN Reason: Anxiety Last Admin: 11/10/22 20:27 Dose: 50 mg Documented By: LYNNETTE Magnesium Oxide (Magnesium Oxide 400 Mg Tablet) 400 mg PO DAILY [facility] Last Admin: 11/13/22 10:20 Dose: 400 mg Documented By: JANIS Melatonin (Melatonin 3 Mg Tablet) 6 mg PO BEDTIME PRN PRN Reason: Insomnia Last Admin: 11/10/22 20:20 Dose: 6 mg Documented By: LYNNETTE Multivitamins/Vitamin C (Multivitamin Tablet) 1 tab PO DAILY [facility] Last Admin: 11/13/22 10:21 Dose: 1 tab Documented By: JANIS Nystatin (Nystatin Powder 15 Gm Bottle) 1 appl TOPICAL BID [facility]; Protocol Last Admin: 11/13/22 10:21 Dose: 1 appl Documented By: JANIS Omeprazole (Omeprazole 20 Mg Capsule.) 20 mg PO BID@0630,1630 [facility] Last Admin: 11/13/22 05:50 Dose: 20 mg Documented By: CA Ondansetron HCl (Ondansetron Hcl 4 Mg/2 Ml Vial) 4 mg IVPUSH Q8H PRN PRN Reason: Nausea and Vomiting Last Admin: 11/07/22 08:38 Dose: 4 mg Documented By: JEANIE Pharmacy Consult (Consult Rx Etoh Phenob Im/Po) 1 each MISCELLANE ONCE PRN; Protocol PRN Reason: Consult order Prednisone (Prednisone 20 Mg Tablet) 40 mg PO DAILY [facility] Stop: 11/14/22 23:59 Last Admin: 11/13/22 10:21 Dose: 40 mg Documented By: JANIS Pyridoxine HCl (Pyridoxine Hcl (Vitamin B6) 50 Mg Tablet) 50 mg PO DAILY [facility] Last Admin: 11/13/22 10:21 Dose: 50 mg Documented By: JANIS Sodium Chloride (0.9 % Sodium Chloride Flush 3 Ml Syringe) 3 ml IVFLUSH QSHIFT [facility] Last Admin: 11/13/22 09:50 Dose: Not Given Documented By: JANIS Non-Admin Reason: No Access Labs 11/08/22 05:39 11/08/22 05:38 Assessment and Plan (1) Alcohol use disorder, severe, dependence: Status: Acute Plan 57-year-old female with pertinent history of COPD not on home oxygen, mood disorder, alcohol use disorder homeless who presents to the emergency department for evaluation of dyspnea. Acute hypoxemic respiratory failure due to acute exacerbation of COPD completed IV steroids, continue 4 days prednisone (stop 11/14/22 , p.r.n. DuoNebs off oxygen ambulatory oxygen sat normal Alcohol use disorder with alcohol withdrawal completed phenobarbatol taper continue thiamine, folic acid supplementation hypomagnesemia. Resolved continue po replacement follow levels Mood disorder psych consult to assess for med adjustment liver cirrhosis with esophageal varices with chronic pancytopenia no abdominal ascites Chronic Microcytic anemia H/H stable no evidence of acute blood loss above transfusion threshold Hypokalemia. Resolved improved with replacement morbid obesity bmi 42.1 weight loss encouraged DVT prophylaxis: [place] attending - Dr. Vazquez Full code DISPO plan for STR when bed available Requires ongoing stay for safe disposition Time Spent With Patient Time: Total time managing care of this patient today ____ minutes. Quality Stroke Does the patient have a stroke diagnosis?: No VTE Prior VTE?: No VTE Risk Level:: Medical - moderate - high VTE Device Contraindication: Treatment Not Indicated VTE Drug Contraindication: N/A - Med Ordered
[2022-11-13 15:23] VITALS: BP 137/68; PULSE 81; RESP 18; TEMP 36.4; O2SAT 95
[2022-11-13 19:38] VITALS: BP 126/68; PULSE 81; RESP 18; TEMP 36.2; O2SAT 95
[2022-11-13] MEDS: Enoxaparin Sodium 40 MG/0.4 ML SYRINGE SUBCUT (20:05)
[2022-11-13] MEDS: Melatonin 3 MG TABLET 6 MG PO (21:32)
[2022-11-14 03:17] VITALS: BP 119/60; PULSE 76; RESP 18; TEMP 36.1; O2SAT 95
[2022-11-14] MEDS: Omeprazole 20 MG CAPSULE.DR PO ×2 (05:35→15:45)
[2022-11-14 07:25] VITALS: BP 137/63; PULSE 71; RESP 18; TEMP 36.1; O2SAT 96
[2022-11-14] MEDS: Magnesium Oxide 400 MG TABLET PO (07:39)
[2022-11-14] MEDS: predniSONE 20 MG TABLET 40 MG PO (07:39)
[2022-11-14] MEDS: Gabapentin 100 MG CAPSULE 200 MG PO (07:39)
[2022-11-14] MEDS: Nystatin Powder 15 GM BOTTLE 1 APPL TOPICAL (07:40)
[2022-11-14] MEDS: Ferrous Sulfate 324 MG TABLET.DR PO (07:40)
[2022-11-14] MEDS: Multivitamin TABLET 1 TAB PO (07:40)
[2022-11-14] MEDS: Pyridoxine HCl (Vitamin B6) 50 MG TABLET PO (07:40)
--- NOTE | 2022-11-14 10:21 | MHC.CM.PN ---
IMM 11/14/22 Patient is discharged today to [facility]. The SNF is seeking insurance authorization. 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 Spoke with [facility] Care Transitions coordinator, Joy. She was aware of the case. She was notified that the facility has offered a bed. They will be contacting for authorization. DP to [facility] via BLS.
--- NOTE | 2022-11-14 12:10 | P.DS_ITS ---
DS: Providers Provider Date of Service: 11/14/22 Date of admission: 11/06/22 19:15 Date of discharge: 11/14/22 Primary care physician: NEVILLE Garrison Consults: 11/06/22 19:35 Addiction Medicine Routine Consulting Provider: Addiction Covering Reason for consultation: Alcohol use disorder 11/06/22 19:36 Consult to Psychiatry Routine Consulting Provider: Psych Covering Reason for consultation: Generalized anxiety disorder/major depression Attending physician on discharge: Ruben Vazquez Discharging clinician: Heaven Núñez DS: Diagnosis Discharge Diagnosis (1) Alcohol use disorder, severe, dependence: Status: Acute (2) Acute exacerbation of chronic obstructive airways disease: Status: Acute DS: Summary Hospital Course Hospital Course: This is a 57-year-old female with pertinent history of COPD not on home oxygen, mood disorder, alcohol use disorder homeless who presents to the emergency department for evaluation of dyspnea.? Patient states she has been having shortness of breath, worse with exertion that has been ongoing for a while.? Patient states her medications including inhaler are in a storage place which she does not have access to.? Has not taking her inhaler in a while.? Also complains of wheezing and nonproductive cough.? No fever or chills.? No chest discomfort, palpitations, abdominal pain, changes in urinary or bowel habits.? Does endorse history of alcohol use disorder.? Also has a history of alcohol withdrawal seizures. In the emergency department, patient was found to be wheezing and hypoxemic.? Alcohol level found to be elevated. 57-year-old woman treated for acute hypoxemic respiratory failure secondary to COPD exacerbation. Treated with scheduled DuoNebs and IV steroids. Required supplemental oxygen but subsequently weaned off. She was also treated for alcohol use disorder with alcohol withdrawal. she was treated with phenobarbital protocol, thiamine and folic acid supplementation. Electrolyte abnormalities repleted and resolved. Plan is for short-term rehab. Long discussion regarding the importance of alcohol cessation, patient stated understanding. Mental health. Continue medications Liver cirrhosis with esophageal varices. Stable during admission Chronic microcytic anemia. No acute blood loss during admission Morbid obesity. BMI 42.1 Discussed importance of weight management as this may be contributing to worsening of other comorbidities Time Spent with Patient Time attestation: Total time managing care of this patient today ____ minutes. Discharge coordination time: Greater than 30 minutes Quality: Safe Use of Opioids Does Pt have an Active Cancer Diagnosis on the Problem List?: No Quality: Stroke Does the patient have a stroke diagnosis?: No Physical Exam Vital Signs: Vital Signs: Last Vital Signs Temp 96.9 F 11/14/22 07:25 Pulse 71 11/14/22 07:25 Resp 18 11/14/22 07:25 BP 137/63 11/14/22 07:25 Pulse Ox 96 11/14/22 07:25 O2 Del Method Room Air 11/14/22 07:25 O2 Flow Rate 5 11/09/22 19:47 BMI result Body Mass Index 42.1 Const: General: cooperative, comfortable, no acute distress, alert and awake Nutritional Appearance: overweight Orientation/consciousness: patient oriented x3 Resp: Effort & Inspection: normal respiratory effort, able to speak in complete sentences, no respiratory distress and no use of accessory muscles Cardio: Rate: regular rate Heart sounds: S1 normal heart sound present and S2 normal heart sound present GI: Inspection: No distended Palpation (GI): Soft to palpation and nontender Neuro: General: patient oriented x3, moves all extremities and CN's II-XI intact bilaterally Extrem: General: Yes no pedal edema DS: Data Data Completed and Pending Completed studies during hospitalization [Text1]: Procedures Detoxification Services for Substance Abuse Treatment (06/12/22) Inspection of Upper Intestinal Tract, Via Natural or Artificial Opening Endoscopic (04/13/22) Discharge Plan Discharge Anticipated Discharge Date/Time: 11/14/22 12:08 Patient Disposition: Xfer Inpatient Rehab Fac Discharge Diagnosis: Acute hypoxemic respiratory failure COPD exacerbation Alcohol use disorder with alcohol withdrawal Hypo magnesemia Referrals: [facility] [Outside] - 1 Week Discharge Medications: Continued thiamine HCl (vitamin B1) [Vitamin B-1] 100 mg Tablet 100 mg PO DAILY multivitamin with folic acid [Daily-Nguyen (with folic acid)] 400 mcg tablet 1 tab PO DAILY gabapentin 100 mg Capsule 200 mg PO BID acetaminophen 500 mg Tablet 1,000 mg PO Q6H PRN (Reason: Pain) calcium carbonate 500 mg calcium (1,250 mg) Tablet,Chewable 1,000 mg PO DAILY PRN (Reason: Heartburn) cetirizine 10 mg tablet 10 mg PO DAILY naltrexone 50 mg tablet 50 mg PO DAILY magnesium oxide 400 mg (241.3 mg magnesium) tablet 400 mg PO DAILY pantoprazole 40 mg tablet,delayed release (DR/EC) 40 mg PO BID folic acid 1 mg tablet 1 mg PO DAILY hydroxyzine HCl 25 mg tablet 25 - 50 mg PO BID PRN (Reason: Anxiety) pyridoxine (vitamin B6) 100 mg Tablet 50 mg PO DAILY ferrous gluconate 324 mg (38 mg iron) tablet 324 mg PO DAILY Discharge Orders: Discharge Order (Routine); Ordered 11/14/22 Ordered By: Heaven Núñez Diet: Advance to usual diet Activity on Discharge: As tolerated Stand Alone Forms: Patient Portal Discharge page Care Plan Goals: Complete resolution symptoms Health Concerns: Acute hypoxemic respiratory failure COPD exacerbation Alcohol use disorder with alcohol withdrawal Hypo magnesemia Plan of Treatment: Follow-up with primary care provider as needed Stop drinking alcohol Take all medications as prescribed Assessment: See discharge summary
[2022-11-14 15:44] VITALS: BP 127/61; PULSE 87; RESP 18; TEMP 36.1; O2SAT 97
== END 2022-11-14 16:56 | DRG 190 ==
LOC: HO.ED 18:35 → HO.EDOVER 19:45 → HO.S3 19:54
PROVIDERS: Nurse Practitioner Family; Physician Assistant; Admitting Provider Student in an Organized Health Care Education/Training Program; Emergency Provider Emergency Medicine; PCP Nurse Practitioner Family; Visit Provider Physician Assistant Medical
DX: J44.1 Chronic obstructive pulmonary disease with (acute) exacerbation (principal); J96.01 Acute respiratory failure with hypoxia; Z68.41 Body mass index [BMI] 40.0-44.9, adult; F10.239 Alcohol dependence with withdrawal, unspecified; D61.818 Other pancytopenia; I85.10 Secondary esophageal varices without bleeding; F33.9 Major depressive disorder, recurrent, unspecified; D50.9 Iron deficiency anemia, unspecified; E83.42 Hypomagnesemia; E87.6 Hypokalemia; K70.30 Alcoholic cirrhosis of liver without ascites; D69.59 Other secondary thrombocytopenia; Y90.8 Blood alcohol level of 240 mg/100 ml or more; E66.01 Morbid (severe) obesity due to excess calories; Z20.822 Contact with and (suspected) exposure to COVID-19; Z59.02 Unsheltered homelessness; Z87.891 Personal history of nicotine dependence; Z79.899 Other long term (current) drug therapy
CPT/HCPCS: 36415; 71045; 80048; 80053; 80307; 83540; 83605; 83735; 83880; 84484; 85025; 85027; 85610; 85730; 87040; 87502; 87635; 93005; 94640; 97116; 97162; 99285; J0456; J0696; J1650; J2060; J2405; J2560; J2920; J2930; J3411; J3475

== ENCOUNTER → 2022-11-06 15:32 | Outpatient (BNV) | payer OTHER, SELFPAY | PROVIDERS: Emergency Provider Emergency Medicine; Visit Provider Student in an Organized Health Care Education/Training Program | DX: F10.20 Alcohol dependence, uncomplicated (principal); J44.1 Chronic obstructive pulmonary disease with (acute) exacerbation | CPT/HCPCS: 99222; 99231; 99232; 99233; 99239 ==

== ENCOUNTER → 2022-11-06 19:15 | Outpatient (BNV) | payer OTHER, SELFPAY | PROVIDERS: Admitting Provider Student in an Organized Health Care Education/Training Program; Emergency Provider Emergency Medicine; Visit Provider Psychiatry & Neurology Psychiatry | DX: F32.1 Major depressive disorder, single episode, moderate (principal); F41.1 Generalized anxiety disorder; F43.11 Post-traumatic stress disorder, acute; F10.20 Alcohol dependence, uncomplicated | CPT/HCPCS: 99222 ==